=== PATIENT | female | born 1965 | race African-American/Black ===

== ENCOUNTER 2016-11-28 12:40 | Emergency (ER) | payer OTHER ==
[2016-11-28 12:52] VITALS: BP 146/63; PULSE 81; RESP 17; TEMP 98.3
--- NOTE | 2016-11-28 12:55 | ED ---
ENT HPI - General Chief complaint: Dental/Oral Stated complaint: Tooth Pain Time Seen by Provider: 11/28/16 12:52 Source: patient, RN notes reviewed Mode of arrival: ambulatory Limitations: no limitations - History of Present Illness Initial comments: 50-year-old female presents emergency Department chief complaint left-sided dental pain. Patient states she has 2 broken teeth and states that they're trying to figure out what to do for her dentition secondary she's on Plavix may don't want her to stop. Dentist will not remove the teeth at this time as she is on Plavix. Patient denies any fevers or chills with states her last few days she's had increased pain. Patient denies any neck pain, headache or dizziness. Patient states that she tried some [id number] pain medication no relief. - Related Data Home Medications Medication Instructions Recorded Confirmed ALPRAZolam [Xanax] 0.25 mg PO TID PRN 10/21/13 12/07/15 Aspirin 81 mg PO DAILY 10/21/13 12/07/15 Atorvastatin [Lipitor] 80 mg PO DAILY 10/21/13 12/07/15 Clopidogrel [Plavix] 75 mg PO DAILY 10/21/13 12/07/15 Losartan Potassium [Cozaar] 100 mg PO QAM 10/21/13 12/07/15 Metoprolol Tartrate [Lopressor] 50 mg PO BID 10/21/13 12/07/15 amLODIPine [Norvasc] 10 mg PO QAM 08/14/14 12/07/15 Cholecalciferol [Vitamin D3] 2,000 unit PO DAILY 07/31/15 12/07/15 Previous Rx's Medication Instructions Recorded Hydrocodone/Acetaminophen [Lortab 1 tab PO Q6HR PRN #30 tab 03/26/15 7.5-325 mg Tablet] Clindamycin [Cleocin] 300 mg PO Q6H #40 capsule 12/07/15 HYDROcodone/APAP 5-325MG [[place] 5] 1 each PO Q4HR PRN #20 tab 12/07/15 Acetaminophen-Codeine 300-30mg 1 tab PO Q4H PRN #20 tablet 11/28/16 [Tylenol #3] Clindamycin HCl 300 mg PO Q6HR #40 cap 11/28/16 Allergies Allergy/AdvReac Type Severity Reaction Status Date / Time Penicillins Allergy Unknown Verified 12/07/15 01:09 Review of Systems ROS Statement: Those systems with pertinent positive or pertinent negative responses have been documented in the HPI. ROS Other: All systems not noted in ROS Statement are negative. Past Medical History Past Medical History: Cancer, Hyperlipidemia, Hypertension, Myocardial Infarction ([place]) Additional Past Medical History / Comment(s): BRAIN ANEURSYM, LUNG CA Last Myocardial Infarction Date:: 04/30/2013 History of Any Multi-Drug Resistant Organisms: None Reported Past Surgical History: Heart Catheterization, Orthopedic Surgery, Tubal Ligation Additional Past Surgical History / Comment(s): ANGIOPLASTY, CARPEL TUNNEL, and laparoscopy, PARTIAL LUNR REMOVAL TO RIGHT LUNG Past Anesthesia/Blood Transfusion Reactions: No Reported Reaction Past Psychological History: Anxiety, Panic Disorder Smoking Status: Current every day smoker Past Alcohol Use History: Rare Past Drug Use History: None Reported - Past Family History Mother Family Medical History: Cancer Father Family Medical History: Cancer General Exam Limitations: no limitations General appearance: alert, in no apparent distress Head exam: Present: atraumatic, normocephalic, normal inspection Eye exam: Present: normal appearance, PERRL, EOMI. Absent: scleral icterus, conjunctival injection, periorbital swelling ENT exam: Present: mucous membranes moist, TM's normal bilaterally, normal external ear exam. Absent: normal exam, normal oropharynx (Poor dentition, dental fracture #16 and #17. There is no drainable abscess) Neck exam: Present: normal inspection, full ROM. Absent: tenderness, meningismus, lymphadenopathy Respiratory exam: Present: normal lung sounds bilaterally. Absent: respiratory distress, wheezes, rales, rhonchi, stridor Cardiovascular Exam: Present: regular rate, normal rhythm, normal heart sounds. Absent: systolic murmur, diastolic murmur, rubs, gallop, clicks Course Vital Signs 11/28/16 12:49 Temperature 98.3 F Pulse Rate 81 Respiratory 17 Rate Blood Pressure 146/63 O2 Sat by Pulse 99 Oximetry Medical Decision Making - Medical Decision Making 50-year-old female presented for dental pain. Patient has dental fractures noted. Patient placed on antibiotics, pain medication this time she is advised to follow-up again with dentist and figure out a plan for her dentition. Return parameters were discussed. Disposition Clinical Impression: Fracture of tooth, Toothache Disposition: HOME SELF-CARE Condition: Stable Instructions: Toothache (ED) Additional Instructions: Please return to the Emergency Department if symptoms worsen or any other concerns. Prescriptions: Acetaminophen-Codeine 300-30mg [Tylenol #3] 1 tab PO Q4H PRN #20 tablet PRN Reason: pain Clindamycin HCl 300 mg PO Q6HR #40 cap Referrals: None,Stated [Primary Care Provider] - 1-2 days Time of Disposition: 12:55
== END 2016-11-28 13:08 | disposition home or self-care (01) ==
LOC: EC 12:40
DX: S02.5XXA Fracture of tooth (traumatic), initial encounter for closed fracture (principal); F41.9 Anxiety disorder, unspecified; E78.5 Hyperlipidemia, unspecified; I10 Essential (primary) hypertension; I25.2 Old myocardial infarction; F17.200 Nicotine dependence, unspecified, uncomplicated; Z95.5 Presence of coronary angioplasty implant and graft; Z88.0 Allergy status to penicillin; Z79.02 Long term (current) use of antithrombotics/antiplatelets; Z79.82 Long term (current) use of aspirin; Z79.899 Other long term (current) drug therapy; X58.XXXA Exposure to other specified factors, initial encounter
CPT/HCPCS: 99282

== ENCOUNTER 2017-06-05 09:56 | Day surgery (SDC) | payer OTHER ==
[2017-05-31 16:18] VITALS: BMI 31.4
[~2017-06-05 09:56] MED LIST: LACTATED RINGERS 1,000 ML IV SCH
[2017-06-05 10:29] VITALS: TEMP 98.7
[2017-06-05] MEDS ORDERED: LIDOCAINE 1% 20 ML VIAL (10MG/ML) FOR IV START INTRADERMA ONE (10:44)
[2017-06-05] MEDS ORDERED: PROPOFOL 10 MG/ML 20 ML VIAL IV ONE (11:10)
--- NOTE | 2017-06-05 11:38 | P.PCN ---
Date of Procedure: 06/05/17 Procedure(s) Performed: Procedure: Total colonoscopy. Preoperative diagnosis: Positive occult blood in the stools. Postoperative diagnosis: Colonoscopy within normal limits. Preparation: HalfLytely prep. Sedation: Was provided by anesthesia. Brief clinical history: The patient is a 51-year-old female who is referred for this evaluation because of finding of positive blood in her stools. She denies any change in bowel habits or overt bleeding. She had no prior colonoscopy. She does have occasional heartburn if she eats the wrong things and she takes Tums for that as needed. No alarm symptoms. Procedure: With the patient on her left lateral decubitus position and after informed consent and adequate sedation, the perianal area was inspected and it did not show any fissures or fistulas. There were no masses felt on digital rectal examination. The Olympus CFQ 160L video colonoscope was then inserted in the rectum in the usual fashion and advanced to the cecum. There were no edema, erythema, friability, ulceration, exudation or spontaneous bleeding. No polyps or tumors were seen or any obvious diverticular disease. I retroflexed the endoscope in the rectum then the endoscope was withdrawn. The patient tolerated the procedure well. Plan: The patient was reassured. A possible upper GI source should be kept in mind and consideration can be given for an upper endoscopy based on her course. She will follow-up with you as planned and I recommended repeat colonoscopy in 10 years.
[2017-06-05 11:55] VITALS: BP 115/65; PULSE 69; RESP 18
== END 2017-06-05 12:15 | disposition home or self-care (01) ==
LOC: ORWHC2ENDO 09:56
DX: K92.1 Melena (principal); K21.9 Gastro-esophageal reflux disease without esophagitis; I25.119 Atherosclerotic heart disease of native coronary artery with unspecified angina pectoris; I10 Essential (primary) hypertension; E78.5 Hyperlipidemia, unspecified; I25.2 Old myocardial infarction; Z85.118 Personal history of other malignant neoplasm of bronchus and lung; I67.1 Cerebral aneurysm, nonruptured; Z79.02 Long term (current) use of antithrombotics/antiplatelets; Z79.82 Long term (current) use of aspirin; Z79.891 Long term (current) use of opiate analgesic; Z79.899 Other long term (current) drug therapy; Z88.0 Allergy status to penicillin
CPT/HCPCS: 81025; 45378; J2704

== ENCOUNTER 2017-12-18 07:32 | Emergency (ER) | payer OTHER ==
[2017-12-18 07:41] VITALS: BP 122/86; PULSE 70; RESP 20; TEMP 98.3
--- NOTE | 2017-12-18 08:21 | ED ---
General Adult HPI - General Chief complaint: ENT Stated complaint: sore throat/ear pain/ rash Time Seen by Provider: 12/18/17 08:05 Source: patient, RN notes reviewed, old records reviewed Mode of arrival: ambulatory Limitations: no limitations - History of Present Illness Initial comments: 51-year-old female presents for evaluation of bilateral eye drainage, itchy ears , sore throat and laryngitis. Patient's eyes have bothered her for approximately the past week with clear to yellow drainage. She states she's had the symptoms of itchy ears and sore throat as well as laryngitis for the past several months. She has been seen by her primary care physician for these symptoms. She is not currently on any antihistamines. Patient denies fever or chills. She has had a mild cough. She is a current smoker. Remote history of lung cancer. She follows with oncology for this. - Related Data Home Medications Medication Instructions Recorded Confirmed ALPRAZolam [Xanax] 0.25 mg PO TID PRN 10/21/13 06/05/17 Aspirin 81 mg PO DAILY 10/21/13 06/05/17 Atorvastatin [Lipitor] 80 mg PO DAILY 10/21/13 06/05/17 Clopidogrel [Plavix] 75 mg PO DAILY 10/21/13 06/05/17 Losartan Potassium [Cozaar] 100 mg PO QAM 10/21/13 06/05/17 Metoprolol Tartrate [Lopressor] 50 mg PO BID 10/21/13 06/05/17 amLODIPine [Norvasc] 10 mg PO QAM 08/14/14 06/05/17 traMADol HCL [Ultram] 50 mg PO Q6HR PRN 05/31/17 06/05/17 Ergocalciferol [Vitamin D2] 50,000 unit PO Q7D 06/05/17 06/05/17 Previous Rx's Medication Instructions Recorded Loratadine [Claritin] 10 mg PO DAILY #30 tab 12/18/17 Polymyxin B-Trimeth Sulf Ophth 2 drops BOTH EYES Q4H #10 ml 12/18/17 [Polytrim Opthalmic] methylPREDNISolone Dose Pack 4 mg PO DIRECTED #21 package 12/18/17 [Medrol Dose Pack] Allergies Allergy/AdvReac Type Severity Reaction Status Date / Time Penicillins Allergy Unknown Verified 12/18/17 07:40 Childhood Review of Systems ROS Statement: Those systems with pertinent positive or pertinent negative responses have been documented in the HPI. ROS Other: All systems not noted in ROS Statement are negative. Past Medical History Past Medical History: Cancer, GERD/Reflux, Hyperlipidemia, Hypertension, Myocardial Infarction ([place]) Additional Past Medical History / Comment(s): BRAIN ANEURSYM, LUNG CA, CARPAL TUNNEL RIGHT WRIST Last Myocardial Infarction Date:: 04/30/2013 History of Any Multi-Drug Resistant Organisms: None Reported Past Surgical History: Heart Catheterization, Orthopedic Surgery, Tubal Ligation , Uterine Ablation Additional Past Surgical History / Comment(s): ANGIOPLASTY FOR BRAIN ANEURSYM, CARPEL TUNNEL RIGHT WRIST , and laparoscopy, PARTIAL RIGHT LUNG REMOVAL ,PTCA Past Anesthesia/Blood Transfusion Reactions: No Reported Reaction Past Psychological History: Anxiety, Panic Disorder Smoking Status: Current every day smoker Past Alcohol Use History: None Reported Past Drug Use History: None Reported - Past Family History Mother Family Medical History: Cancer Father Family Medical History: Cancer General Exam Limitations: no limitations General appearance: alert, in no apparent distress Head exam: Present: atraumatic, normocephalic Eye exam: Present: PERRL, EOMI, conjunctival injection. Absent: periorbital swelling, periorbital tenderness ENT exam: Present: mucous membranes moist, TM's normal bilaterally. Absent: normal oropharynx (Pharyngeal erythema, no tonsillar swelling or exudate, there is cobblestoning) Neck exam: Present: full ROM, lymphadenopathy (Some bilateral cervical lymphadenopathy) Respiratory exam: Present: normal lung sounds bilaterally. Absent: respiratory distress, wheezes, rales, rhonchi Cardiovascular Exam: Present: regular rate, normal rhythm GI/Abdominal exam: Present: soft. Absent: distended, tenderness Extremities exam: Present: normal inspection, full ROM, normal capillary refill. Absent: pedal edema Neurological exam: Present: alert, oriented X3 Psychiatric exam: Present: normal affect, normal mood Skin exam: Present: warm, dry, intact. Absent: cyanosis, diaphoretic Course Vital Signs 12/18/17 07:39 Temperature 98.3 F Pulse Rate 70 Respiratory 20 Rate Blood Pressure 122/86 O2 Sat by Pulse 99 Oximetry Medical Decision Making - Medical Decision Making 51-year-old female presenting with constellation of symptoms that appears primarily ALLERGIC in nature. Patient is otherwise well-appearing, stable vitals. She does have good PATIENT follow-up. She will be prescribed Claritin daily, Medrol Dosepak, and eyedrops at the chance for her conjunctivitis is bacterial in nature. She will also be given ENT follow-up to use as needed. She will also follow up with her primary care physician. She is also encouraged to quit smoking. Return with worsening or changing symptoms. Disposition Clinical Impression: Allergic pharyngitis, Conjunctivitis Disposition: HOME SELF-CARE Condition: Good Instructions: Allergic Rhinitis (ED), Conjunctivitis (ED) Prescriptions: Loratadine [Claritin] 10 mg PO DAILY #30 tab methylPREDNISolone Dose Pack [Medrol Dose Pack] 4 mg PO DIRECTED #21 package Polymyxin B-Trimeth Sulf Ophth [Polytrim Opthalmic] 2 drops BOTH EYES Q4H #10 ml Is patient prescribed a controlled substance at d/c from ED?: No Referrals: Latisha Ziegler MD [Primary Care Provider] - 1-2 days Kali Perez MD [STAFF PHYSICIAN] - 1-2 days Time of Disposition: 08:18
== END 2017-12-18 08:29 | disposition home or self-care (01) ==
LOC: EC 07:32
DX: J02.9 Acute pharyngitis, unspecified (principal); H10.9 Unspecified conjunctivitis; E78.5 Hyperlipidemia, unspecified; I10 Essential (primary) hypertension; I25.2 Old myocardial infarction; F17.200 Nicotine dependence, unspecified, uncomplicated; Z85.118 Personal history of other malignant neoplasm of bronchus and lung; Z79.01 Long term (current) use of anticoagulants; Z79.82 Long term (current) use of aspirin; Z79.899 Other long term (current) drug therapy; Z88.0 Allergy status to penicillin; Z95.818 Presence of other cardiac implants and grafts
CPT/HCPCS: 99283

== ENCOUNTER → 2018-03-30 | Outpatient (CLI) | payer OTHER ==
--- NOTE | 2018-03-30 13:55 | P.GSHP ---
History of Present Illness H&P Date: 03/30/18 Chief Complaint: abnormal mammogram of the right breast Norma is a 52 year old female with a complaint of a mammogram performed on 920 [id number] which revealed an area of concern in the right breast. The left breast mammogram report is not immediately available to me. The patient was recommended to undergo a stereotactic core biopsy however secondary to the posterior position it was felt that a conventional stereo biopsy would not be possible. An attempt was made on [place] [id number]. However secondary to the location of the lesion it was felt that it could not be performed stereotactically and it was recommended to attempt a wire localization and excision in the operating room. The patient does not feel anything in her breast. She does not complain of any pain in her breast. This was a routine mammogram. She has no nipple discharge or skin changes. The patient has a history of lung cancer in 2016. This was treated with surgery. She did not have chemo or radiation. The patient additionally has been hoarse for several months and was told today that she has throat cancer and is getting ready to start radiation treatment for this. Family history: 1. mother: colon cancer at 66 2. father: lung cancer at 58 3. maternal siblings, 04/26 of cancer; brain, colon, breast 4. paternal aunt: ovarian 5. paternal grandfather: ? type of cancer Hormonal History: menarche: 14 : 2, children, 1 child, born at 18, breast fed: no menopause: uterine ablation 2015 BCP: none hormones: none Past Surgical History: 1. lung cancer 2. brain surgery aneurysm 3. Right wrist carpal tunnel 4. tubal pregnacy/tubaligation Past Medical History: 1. [place] 2. HTN Social history: Smoke:1/2 PPD for 10 years not now alcohol: none drugs: none - Constitutional Comment: throat cancer, Constitutional: Denies chills, Denies fever - EENT Comment: hoarse, throat cancer Eyes: denies blurred vision, denies pain Ears: deny: decreased hearing, tinnitus - Breasts Breasts: bilateral: as per HPI - Cardiovascular Comment: [place] - Respiratory Comment: lung cancer - Gastrointestinal Comment: colonoscopy were ok Gastrointestinal: Denies abdominal pain, Denies diarrhea, Denies nausea, Denies vomiting - Genitourinary (Female) Genitourinary: Denies dysuria, Denies hematuria - Menstruation Menstruation: Reports postmenopausal - Musculoskeletal Comment: arthritis ? in neck - Integumentary Integumentary: Reports rash - Neurological Comment: numb on the right side Neurological: Reports numbness - Psychiatric Psychiatric: Reports anxiety, Reports depression - Endocrine Endocrine: Denies fatigue, Denies weight change - Hematologic/Lymphatic Comment: plavix and aspirin - Allergic/Immunologic Allergic/Immunologic: Reports seasonal allergies Past Medical History Past Medical History: Cancer, GERD/Reflux, Hyperlipidemia, Hypertension, Myocardial Infarction ([place]) Additional Past Medical History / Comment(s): BRAIN ANEURSYM, LUNG CA, CARPAL TUNNEL RIGHT WRIST Last Myocardial Infarction Date:: 04/30/2013 History of Any Multi-Drug Resistant Organisms: None Reported Past Surgical History: Heart Catheterization, Orthopedic Surgery, Tubal Ligation , Uterine Ablation Additional Past Surgical History / Comment(s): ANGIOPLASTY FOR BRAIN ANEURSYM, CARPEL TUNNEL RIGHT WRIST , and laparoscopy, PARTIAL RIGHT LUNG REMOVAL ,PTCA Past Anesthesia/Blood Transfusion Reactions: No Reported Reaction Past Psychological History: Anxiety, Panic Disorder Smoking Status: Current every day smoker Past Alcohol Use History: None Reported Past Drug Use History: None Reported - Past Family History Mother Family Medical History: Cancer Father Family Medical History: Cancer Medications and Allergies Home Medications Medication Instructions Recorded Confirmed Type ALPRAZolam [Xanax] 0.25 mg PO TID PRN 10/21/13 06/05/17 History Aspirin 81 mg PO DAILY 10/21/13 06/05/17 History Atorvastatin [Lipitor] 80 mg PO DAILY 10/21/13 06/05/17 History Clopidogrel [Plavix] 75 mg PO DAILY 10/21/13 06/05/17 History Losartan Potassium [Cozaar] 100 mg PO QAM 10/21/13 06/05/17 History Metoprolol Tartrate [Lopressor] 50 mg PO BID 10/21/13 06/05/17 History amLODIPine [Norvasc] 10 mg PO QAM 08/14/14 06/05/17 History traMADol HCL [Ultram] 50 mg PO Q6HR PRN 05/31/17 06/05/17 History Ergocalciferol [Vitamin D2] 50,000 unit PO Q7D 06/05/17 06/05/17 History Loratadine [Claritin] 10 mg PO DAILY #30 tab 12/18/17 Rx Polymyxin B-Trimeth Sulf Ophth 2 drops BOTH EYES Q4H #10 ml 12/18/17 Rx [Polytrim Opthalmic] methylPREDNISolone Dose Pack 4 mg PO DIRECTED #21 package 12/18/17 Rx [Medrol Dose Pack] Allergies Allergy/AdvReac Type Severity Reaction Status Date / Time Penicillins Allergy Unknown Verified 12/18/17 07:40 Childhood Surgical - Exam - General obese - Eyes normal ocular movement - ENT hoarse no hearing loss, no congestion - Neck trachea midline - Respiratory normal respiratory effort, clear to auscultation - Cardiovascular Rhythm: regular Heart Sounds: normal: S1, S2 - Abdomen Abdomen: soft, non tender, no guarding, no rigid, no rebound - Integumentary normal turger - Musculoskeletal normal gait, normal posture - Psychiatric oriented to time, oriented to person, oriented to place, speech is normal, memory intact breast exam: Right breast: Slightly smaller than the left breast, multiple positional exam fibrocystic changes, no dominant masses or nodules of concern, there are incisions near for prior trocar sites in the lateral aspect of the chest wall near the breast is a well-healed Right axilla: No adenopathy of concern Left breast: Multi-positional exam of dominant mass or nodules of concern Left axilla: No adenopathy of concern Results Mammogram reviewed with radiologist Assessment and Plan Assessment: Impression: 1. Mammographic abnormality right breast 2. Proper cystic breast changes 3. History of lung cancer 4. History of myocardial infarction 5. Throat cancer for which she is to start radiation therapy 6. History of brain aneurysm 7. Hypertension Plan: 1. After review of mammograms with Dr. Osuna the patient is going to undergo additional radiographs to determine if this can be localized stereotactically 2. Follow-up with radiation therapy for the throat cancer 3. Medical management of medical problems CC: Dr. Glenis Delacruz
[2018-03-30 14:23] VITALS: BP 131/80; PULSE 92; RESP 20; TEMP 98.4; BMI 34.3
--- NOTE | 2018-03-30 14:26 | MM ---
Reason for exam: additional evaluation requested from prior study. Last mammogram was performed 2 months ago. Physical Findings: A clinical breast exam by your physician is recommended on an annual basis and results should be correlated with mammographic findings. [facility] RT w CAD CC, MLO, LM, and XCCL view(s) were taken of the right breast. Technologist: Verna Thao, RT (R)(M) Prior study comparison: February 06, 2018, mammogram, performed at [facility]. There are scattered fibroglandular densities. Finding: There is persistent indeterminate heterogeneous calcifications in the upper quadrant, posterior position of the right breast. Previous mammotome biopsy in the right breast x 2. These results were verbally communicated with the patient on 03/30/18. ASSESSMENT: Suspicious, BI-RAD 4 RECOMMENDATION: Surgical consultation of the right breast. (No change from outside 02/06/18 where suspicious needle localization recommended. May be difficult to needle loc consider short term mammogram follow up ) JAIRD
== END | disposition home or self-care (01) ==
LOC: WWCWWP 13:08
PROVIDERS: ATTEND Surgery
DX: R92.8 Other abnormal and inconclusive findings on diagnostic imaging of breast (principal)
CPT/HCPCS: 77065

== ENCOUNTER 2018-07-18 08:22 | Emergency (ER) | payer OTHER ==
[2018-07-18 08:34] VITALS: RESP 18; TEMP 98.6
[2018-07-18] MEDS ORDERED: SODIUM CHLORIDE 0.9% 1,000 ML IV STA (08:48)
--- NOTE | 2018-07-18 08:51 | ED ---
General Adult HPI - General Chief complaint: Dizziness Stated complaint: Dizzy/lightheaded Time Seen by Provider: 07/18/18 08:38 Source: patient, RN notes reviewed, old records reviewed Mode of arrival: wheelchair Limitations: no limitations - History of Present Illness Initial comments: 52-year-old female presents for evaluation of lightheadedness and dizziness. Patient states her symptoms have been present for approximately one week. She has had recent diagnosis of laryngeal cancer status post resection and radiation. She is not currently on chemotherapy. She states that after her radiation she has had some dysphagia and has not been eating or drinking well. Denies vomiting or diarrhea. Denies chest pain or dyspnea. States symptoms are worse with standing. Her family member does report that she has not been eating or drinking well at all. Secondary issue of increased stress with her boyfriend recently been diagnosed with terminal cancer. - Related Data Home Medications Medication Instructions Recorded Confirmed ALPRAZolam [Xanax] 0.25 mg PO TID PRN 10/21/13 07/18/18 Aspirin 81 mg PO DAILY 10/21/13 07/18/18 Atorvastatin [Lipitor] 80 mg PO DAILY 10/21/13 07/18/18 Clopidogrel [Plavix] 75 mg PO DAILY 10/21/13 07/18/18 Losartan Potassium [Cozaar] 100 mg PO QAM 10/21/13 07/18/18 Metoprolol Tartrate [Lopressor] 50 mg PO BID 10/21/13 07/18/18 amLODIPine [Norvasc] 10 mg PO QAM 08/14/14 07/18/18 Previous Rx's Medication Instructions Recorded Nitrofurantoin Monohyd/M-Cryst 100 mg PO Q12HR #20 cap 07/18/18 [Macrobid] Allergies Allergy/AdvReac Type Severity Reaction Status Date / Time Penicillins Allergy Unknown Verified 07/18/18 08:59 Childhood Review of Systems ROS Statement: Those systems with pertinent positive or pertinent negative responses have been documented in the HPI. ROS Other: All systems not noted in ROS Statement are negative. Past Medical History Past Medical History: Cancer, GERD/Reflux, Hyperlipidemia, Hypertension, Myocardial Infarction (SD) Additional Past Medical History / Comment(s): BRAIN ANEURSYM, LUNG CA, CARPAL TUNNEL RIGHT WRIST, throat CA dx apr 2018 Last Myocardial Infarction Date:: 04/30/2013 History of Any Multi-Drug Resistant Organisms: None Reported Past Surgical History: Heart Catheterization, Orthopedic Surgery, Tubal Ligation , Uterine Ablation Additional Past Surgical History / Comment(s): ANGIOPLASTY FOR BRAIN ANEURSYM, CARPEL TUNNEL RIGHT WRIST , and laparoscopy, PARTIAL RIGHT LUNG REMOVAL ,PTCA, Past Anesthesia/Blood Transfusion Reactions: No Reported Reaction Past Psychological History: Anxiety, Panic Disorder Smoking Status: Current some day smoker Past Alcohol Use History: None Reported Past Drug Use History: None Reported - Past Family History Mother Family Medical History: Cancer Father Family Medical History: Cancer General Exam Limitations: no limitations General appearance: alert, in no apparent distress Head exam: Present: atraumatic, normocephalic Eye exam: Present: normal appearance, PERRL ENT exam: Present: mucous membranes dry Neck exam: Absent: tenderness, meningismus Respiratory exam: Present: normal lung sounds bilaterally. Absent: respiratory distress, wheezes, rales Cardiovascular Exam: Present: regular rate, normal rhythm GI/Abdominal exam: Present: soft Extremities exam: Present: normal inspection, normal capillary refill. Absent: pedal edema, calf tenderness Neurological exam: Present: alert, oriented X3, CN II-XII intact. Absent: motor sensory deficit Psychiatric exam: Present: normal affect, normal mood Skin exam: Present: warm, dry, intact. Absent: cyanosis, diaphoretic Course Vital Signs 07/18/18 08:30 Temperature 98.6 F Pulse Rate 83 Respiratory 18 Rate Blood Pressure 92/62 O2 Sat by Pulse 98 Oximetry EKG Findings - EKG Comments: EKG Findings:: EKG: Normal sinus rhythm, rate of 76, FL interval 148, QRS duration 78, QTC 420, no ST segment elevation, T-wave inversion in lead 3 Medical Decision Making - Medical Decision Making 52-year-old female presenting with lightheadedness, clinically appears dehydrated, and has had decreased oral intake secondary to radiation for treatment of laryngeal carcinoma. Patient has no chest pain or dyspnea, no headache or neurological complaints, no exam is nonfocal, no ataxia. Patient does appear dehydrated on exam. She has mild leukocytosis 12.1, hemoglobin stable 14.5, creatinine 1.06 from baseline of 0.8. Otherwise CMP is unremarkable. Urinalysis shows 44 white cells, this is a contaminated specimen but there is many bacteria. Urine culture will be obtained patient started on Macrobid. After IV hydration patient is feeling better, vital signs improved. She will be discharged this time, encouraged to maintain oral hydration, present with worsening or changing symptoms. - Lab Data Result diagrams: 07/18/18 09:07 07/18/18 09:07 Lab Results 07/18/18 07/18/18 07/18/18 Range/Units 09:07 09:07 09:07 WBC 12.1 H (3.8-10.6) k/uL RBC 5.01 (3.80-5.40) m/uL Hgb 14.5 (11.4-16.0) gm/dL Hct 44.5 (34.0-46.0) % MCV 88.7 (80.0-100.0) fL MCH 29.0 (25.0-35.0) pg MCHC 32.7 (31.0-37.0) g/dL RDW 14.4 (11.5-15.5) % Plt Count 298 (150-450) k/uL Neutrophils % 82 % Lymphocytes % 8 % Monocytes % 6 % Eosinophils % 3 % Basophils % 0 % Neutrophils # 9.9 H (1.3-7.7) k/uL Lymphocytes # 0.9 L (1.0-4.8) k/uL Monocytes # 0.7 (0-1.0) k/uL Eosinophils # 0.3 (0-0.7) k/uL Basophils # 0.0 (0-0.2) k/uL PT 10.5 (9.0-12.0) sec INR 1.0 (<1.2) APTT 22.5 (22.0-30.0) sec Sodium 140 (137-145) mmol/L Potassium 4.3 (3.5-5.1) mmol/L Chloride 110 H (98-107) mmol/L Carbon Dioxide 22 (22-30) mmol/L Anion Gap 8 mmol/L BUN 11 (7-17) mg/dL Creatinine 1.06 H (0.52-1.04) mg/dL Est GFR (CKD-EPI)AfAm 71 (>60 ml/min/1.73 sqM) Est GFR (CKD-EPI)NonAf 62 (>60 ml/min/1.73 sqM) Glucose 97 (74-99) mg/dL Calcium 9.8 (8.4-10.2) mg/dL Magnesium 1.8 (1.6-2.3) mg/dL Total Bilirubin 0.6 (0.2-1.3) mg/dL AST 30 (14-36) U/L ALT 33 (9-52) U/L Alkaline Phosphatase 85 (38-126) U/L Troponin I (0.000-0.034) ng/mL Total Protein 6.7 (6.3-8.2) g/dL Albumin 3.7 (3.5-5.0) g/dL Urine Color Urine Appearance (Clear) Urine pH (5.0-8.0) Ur Specific [place] (1.001-1.035) Urine Protein (Negative) Urine Glucose (UA) (Negative) Urine Ketones (Negative) Urine Blood (Negative) Urine Nitrite (Negative) Urine Bilirubin (Negative) Urine Urobilinogen (<2.0) mg/dL Ur Leukocyte Esterase (Negative) Urine RBC (0-5) /hpf Urine WBC (0-5) /hpf Ur Squamous Epith Cells (0-4) /hpf Urine Bacteria (None) /hpf Hyaline Casts (0-2) /lpf Urine Mucus (None) /hpf 07/18/18 07/18/18 Range/Units 09:07 09:07 WBC (3.8-10.6) k/uL RBC (3.80-5.40) m/uL Hgb (11.4-16.0) gm/dL Hct (34.0-46.0) % MCV (80.0-100.0) fL MCH (25.0-35.0) pg MCHC (31.0-37.0) g/dL RDW (11.5-15.5) % Plt Count (150-450) k/uL Neutrophils % % Lymphocytes % % Monocytes % % Eosinophils % % Basophils % % Neutrophils # (1.3-7.7) k/uL Lymphocytes # (1.0-4.8) k/uL Monocytes # (0-1.0) k/uL Eosinophils # (0-0.7) k/uL Basophils # (0-0.2) k/uL PT (9.0-12.0) sec INR (<1.2) APTT (22.0-30.0) sec Sodium (137-145) mmol/L Potassium (3.5-5.1) mmol/L Chloride (98-107) mmol/L Carbon Dioxide (22-30) mmol/L Anion Gap mmol/L BUN (7-17) mg/dL Creatinine (0.52-1.04) mg/dL Est GFR (CKD-EPI)AfAm (>60 ml/min/1.73 sqM) Est GFR (CKD-EPI)NonAf (>60 ml/min/1.73 sqM) Glucose (74-99) mg/dL Calcium (8.4-10.2) mg/dL Magnesium (1.6-2.3) mg/dL Total Bilirubin (0.2-1.3) mg/dL AST (14-36) U/L ALT (9-52) U/L Alkaline Phosphatase (38-126) U/L Troponin I <0.012 (0.000-0.034) ng/mL Total Protein (6.3-8.2) g/dL Albumin (3.5-5.0) g/dL Urine Color Yellow Urine Appearance Turbid H (Clear) Urine pH 6.0 (5.0-8.0) Ur Specific [place] 1.019 (1.001-1.035) Urine Protein 2+ H (Negative) Urine Glucose (UA) Negative (Negative) Urine Ketones Trace H (Negative) Urine Blood Moderate H (Negative) Urine Nitrite Negative (Negative) Urine Bilirubin Negative (Negative) Urine Urobilinogen 2.0 (<2.0) mg/dL Ur Leukocyte Esterase Moderate H (Negative) Urine RBC 3 (0-5) /hpf Urine WBC 44 H (0-5) /hpf Ur Squamous Epith Cells 23 H (0-4) /hpf Urine Bacteria Many H (None) /hpf Hyaline Casts 23 H (0-2) /lpf Urine Mucus Few H (None) /hpf Disposition Clinical Impression: Dehydration, UTI (urinary tract infection) Disposition: HOME SELF-CARE Condition: Good Instructions (If sedation given, give patient instructions): Dizziness (ED), Dehydration (ED), Urinary Tract Infection in Women (DC) Prescriptions: Nitrofurantoin Monohyd/M-Cryst [Macrobid] 100 mg PO Q12HR #20 cap Is patient prescribed a controlled substance at d/c from ED?: No Referrals: Latisha Ziegler MD [Primary Care Provider] - 1-2 days Time of Disposition: 11:27
[2018-07-18 09:37] LABS: Basophils % (A) 0 %; Eosinophils # (A) 0.3 k/uL (0-0.7); Eosinophils % (A) 3 %; HCT 44.5 % (34.0-46.0); HGB 14.5 gm/dL (11.4-16.0); Lymphocytes # (A) 0.9 k/uL (1.0-4.8); Lymphocytes % (A) 8 %; MCHC 32.7 g/dL (31.0-37.0); MCV 88.7 fL (80.0-100.0); Mean Platelet Volume 8.1; Monocytes # (A) 0.7 k/uL (0-1.0); Monocytes % (A) 6 %; Neutrophils # (A) 9.9 k/uL (1.3-7.7); Neutrophils % (A) 82 %; Platelet Count 298 k/uL (150-450); RBC 5.01 m/uL (3.80-5.40); RDW 14.4 % (11.5-15.5); WBC 12.1 k/uL (3.8-10.6)
[2018-07-18 09:40] LABS: Partial Thromboplastin Time 22.5 sec (22.0-30.0); Prothrombin Time 10.5 sec (9.0-12.0)
[2018-07-18 09:42] LABS: Albumin 3.7 g/dL (3.5-5.0); Calcium 9.8 mg/dL (8.4-10.2); Magnesium 1.8 mg/dL (1.6-2.3); Potassium 4.3 mmol/L (3.5-5.1); Total Bilirubin 0.6 mg/dL (0.2-1.3); Total Protein 6.7 g/dL (6.3-8.2)
[2018-07-18 09:43] LABS: Appearance,Urine Turbid (Clear); Bacteria,Urine Many /hpf; Bilirubin,Urine Negative (Negative); Blood,Urine Moderate (Negative); Color,Urine Yellow; Glucose,Urine (UA) Negative (Negative); Hyaline Casts,Urine 23 /lpf (0-2); Ketones,Urine Trace (Negative); Leukocyte Esterase,Urine Moderate (Negative); Mucus,Urine Few /hpf; Nitrite,Urine Negative (Negative); Protein,Urine 2+ (Negative); RBC,Urine 3 /hpf (0-5); Specific Gravity,Urine 1.019 (1.001-1.035); Squamous Epithelial Cell,Urine 23 /hpf (0-4); WBC,Urine 44 /hpf (0-5)
--- NOTE | 2018-07-18 09:48 | XR ---
EXAMINATION TYPE: XR chest 2V DATE OF EXAM: 07/18/2018 COMPARISON: Chest x-ray and chest CT August 05, 2015 HISTORY: Chest pain per order. History of throat and lung cancer per patient. TECHNIQUE: Frontal and lateral views of the chest are obtained. FINDINGS: There is right basilar linear scarring and/or atelectasis on current study. There is improv ed aeration in both lung bases noted since 2016 prior. No pleural effusion or pneumothorax is evident .. The cardiac silhouette size is stable and upper limits of normal. The osseous structures are in tact. IMPRESSION: Right basilar linear atelectasis and/or scarring. No suspicious focal infiltrate
[2018-07-18] MEDS ORDERED: SODIUM CHLORIDE 0.9% 500 ML 500 ML IV ONE (10:51)
[2018-07-18 12:08] VITALS: BP 123/80; PULSE 70
== END 2018-07-18 12:15 | disposition home or self-care (01) ==
LOC: EC 08:22
DX: E86.0 Dehydration (principal); N39.0 Urinary tract infection, site not specified; D72.829 Elevated white blood cell count, unspecified; R13.10 Dysphagia, unspecified; E78.5 Hyperlipidemia, unspecified; I10 Essential (primary) hypertension; I25.2 Old myocardial infarction; F17.200 Nicotine dependence, unspecified, uncomplicated; Z88.0 Allergy status to penicillin; Z79.02 Long term (current) use of antithrombotics/antiplatelets; Z79.82 Long term (current) use of aspirin; Z79.899 Other long term (current) drug therapy; Z85.21 Personal history of malignant neoplasm of larynx; Z85.118 Personal history of other malignant neoplasm of bronchus and lung; Z95.818 Presence of other cardiac implants and grafts; Z92.3 Personal history of irradiation; Z90.2 Acquired absence of lung [part of]; Z86.69 Personal history of other diseases of the nervous system and sense organs; Z90.89 Acquired absence of other organs; Z98.61 Coronary angioplasty status; Z63.79 Other stressful life events affecting family and household
CPT/HCPCS: 36415; 71046; 80053; 81001; 83735; 84484; 85025; 85610; 85730; 93005; 96360; 96361; 99284

== ENCOUNTER 2018-07-21 08:33 | Emergency (ER) | payer OTHER ==
[2018-07-21] MEDS ORDERED: SODIUM CHLORIDE 0.9% 1,000 ML IV STA ×2 (08:40)
--- NOTE | 2018-07-21 08:43 | ED ---
Weakness HPI - General Chief complaint: Weakness Stated complaint: Weakness Time Seen by Provider: 07/21/18 08:33 Source: patient, EMS, RN notes reviewed, old records reviewed Mode of arrival: EMS Limitations: no limitations - History of Present Illness Initial comments: This is a 52-year-old female was brought in by EMS because of lethargy for past 3 weeks she's had been able to eat since the fifth of this month she is nauseated on anything that she tries to eat she states. She has a fevers chills or sweats she has nauseated she states recently she just finished radiation therapy for vocal cord cancer. Is of a history of being under a lot of stress and anxiety recently. She was in the emergency department several days ago for similar complaints. She has some lightheadedness some dizziness with ambulating. No other complaints at this time no cough no dysuria. No palpitations or chest pain MD Complaint: generalized weakness - Related Data Home Medications Medication Instructions Recorded Confirmed Aspirin 81 mg PO DAILY 10/21/13 07/21/18 Atorvastatin [Lipitor] 80 mg PO DAILY 10/21/13 07/21/18 Clopidogrel [Plavix] 75 mg PO DAILY 10/21/13 07/21/18 Losartan Potassium [Cozaar] 100 mg PO DAILY 10/21/13 07/21/18 Metoprolol Tartrate [Lopressor] 50 mg PO BID 10/21/13 07/21/18 amLODIPine [Norvasc] 10 mg PO DAILY 08/14/14 07/21/18 Morphine Sulfate ER [Ms Contin] 15 mg PO Q12HR 07/21/18 07/21/18 oxyCODONE-APAP 10-325MG [Percocet 1 tab PO QID PRN 07/21/18 07/21/18 10-325 mg] Previous Rx's Medication Instructions Recorded Nitrofurantoin Monohyd/M-Cryst 100 mg PO Q12HR #20 cap 07/18/18 [Macrobid] Ondansetron Odt [Zofran Odt] 4 mg PO Q8HR PRN #10 tab 07/21/18 Allergies Allergy/AdvReac Type Severity Reaction Status Date / Time Penicillins Allergy Unknown Verified 07/21/18 09:04 Childhood Review of Systems ROS Statement: Those systems with pertinent positive or pertinent negative responses have been documented in the HPI. ROS Other: All systems not noted in ROS Statement are negative. Past Medical History Past Medical History: Cancer, GERD/Reflux, Hyperlipidemia, Hypertension, Myocardial Infarction (ND) Additional Past Medical History / Comment(s): BRAIN ANEURSYM, LUNG CA, CARPAL TUNNEL RIGHT WRIST, throat CA dx apr 2018 Last Myocardial Infarction Date:: 04/30/2013 History of Any Multi-Drug Resistant Organisms: None Reported Past Surgical History: Heart Catheterization, Orthopedic Surgery, Tubal Ligation, Uterine Ablation Additional Past Surgical History / Comment(s): ANGIOPLASTY FOR BRAIN ANEURSYM, CARPEL TUNNEL RIGHT WRIST , and laparoscopy, PARTIAL RIGHT LUNG REMOVAL ,PTCA, Past Anesthesia/Blood Transfusion Reactions: No Reported Reaction Past Psychological History: Anxiety, Panic Disorder Smoking Status: Current some day smoker Past Alcohol Use History: None Reported Past Drug Use History: None Reported - Past Family History Mother Family Medical History: Cancer Father Family Medical History: Cancer General Exam - General Exam Comments Initial Comments: This is a well-developed well-nourished awake alert oriented 3 female Limitations: no limitations General appearance: alert, in no apparent distress Head exam: Present: atraumatic, normocephalic, normal inspection Eye exam: Present: normal appearance, PERRL, EOMI. Absent: scleral icterus, conjunctival injection, periorbital swelling ENT exam: Present: mucous membranes dry Neck exam: Present: normal inspection, full ROM, other (No stridor JVD or bruits). Absent: tenderness, meningismus, lymphadenopathy Respiratory exam: Present: normal lung sounds bilaterally. Absent: respiratory distress, wheezes, rales, rhonchi, stridor Cardiovascular Exam: Present: regular rate, normal rhythm, normal heart sounds. Absent: systolic murmur, diastolic murmur, rubs, gallop, clicks GI/Abdominal exam: Present: soft, normal bowel sounds. Absent: distended, tenderness, guarding, rebound, rigid Extremities exam: Present: normal inspection, full ROM, normal capillary refill. Absent: tenderness, pedal edema, joint swelling, calf tenderness Back exam: Present: normal inspection Neurological exam: Present: alert, oriented X3, CN II-XII intact Psychiatric exam: Present: normal affect, normal mood Skin exam: Present: warm, dry, intact, normal color. Absent: rash Course Vital Signs 07/21/18 07/21/18 07/21/18 08:37 09:00 09:30 Temperature 98 F Pulse Rate 91 80 Respiratory 18 19 18 Rate Blood Pressure 107/80 107/80 108/77 O2 Sat by Pulse 97 97 100 Oximetry 07/21/18 07/21/18 10:00 12:11 Temperature Pulse Rate 79 89 Respiratory 18 18 Rate Blood Pressure 121/77 113/80 O2 Sat by Pulse 100 97 Oximetry EKG Findings - EKG Results: EKG: interpreted by GENEVA, sinus rhythm (Sinus rhythm of 84. Interval 146 years duration 80 QT since QTC 08/16/1959/ nonspecific T-wave configuration) Medical Decision Making - Medical Decision Making I did reevaluate patient on multiple occasions she improved after IV hydration IV magnesium she is able to eat without difficulty no nausea vomiting she does require further stating emergency department and does want to go home she'll be discharged initial consideration was for admission for intractable vomiting but this has resolved. - Lab Data Result diagrams: 07/21/18 08:43 07/21/18 08:43 Lab Results 07/21/18 07/21/18 07/21/18 Range/Units 08:43 08:43 08:43 WBC 11.1 H (3.8-10.6) k/uL RBC 4.95 (3.80-5.40) m/uL Hgb 14.1 (11.4-16.0) gm/dL Hct 43.5 (34.0-46.0) % MCV 88.0 (80.0-100.0) fL MCH 28.6 (25.0-35.0) pg MCHC 32.4 (31.0-37.0) g/dL RDW 14.3 (11.5-15.5) % Plt Count 326 (150-450) k/uL Neutrophils % 82 % Lymphocytes % 7 % Monocytes % 6 % Eosinophils % 4 % Basophils % 1 % Neutrophils # 9.1 H (1.3-7.7) k/uL Lymphocytes # 0.7 L (1.0-4.8) k/uL Monocytes # 0.6 (0-1.0) k/uL Eosinophils # 0.4 (0-0.7) k/uL Basophils # 0.1 (0-0.2) k/uL Sodium 138 (137-145) mmol/L Potassium 3.9 (3.5-5.1) mmol/L Chloride 110 H (98-107) mmol/L Carbon Dioxide 21 L (22-30) mmol/L Anion Gap 7 mmol/L BUN 8 (7-17) mg/dL Creatinine 0.85 (0.52-1.04) mg/dL Est GFR (CKD-EPI)AfAm >90 (>60 ml/min/1.73 sqM) Est GFR (CKD-EPI)NonAf 80 (>60 ml/min/1.73 sqM) Glucose 110 H (74-99) mg/dL Calcium 9.5 (8.4-10.2) mg/dL Magnesium 1.6 (1.6-2.3) mg/dL Total Bilirubin 0.5 (0.2-1.3) mg/dL AST 32 (14-36) U/L ALT 31 (9-52) U/L Alkaline Phosphatase 75 (38-126) U/L Total Creatine Kinase 43 (30-135) U/L CK-MB (CK-2) <0.2 (0.0-2.4) ng/mL CK-MB (CK-2) Rel Index Troponin I <0.012 (0.000-0.034) ng/mL Total Protein 6.2 L (6.3-8.2) g/dL Albumin 3.3 L (3.5-5.0) g/dL Urine Color Urine Appearance (Clear) Urine pH (5.0-8.0) Ur Specific [place] (1.001-1.035) Urine Protein (Negative) Urine Glucose (UA) (Negative) Urine Ketones (Negative) Urine Blood (Negative) Urine Nitrite (Negative) Urine Bilirubin (Negative) Urine Urobilinogen (<2.0) mg/dL Ur Leukocyte Esterase (Negative) Urine RBC (0-5) /hpf Urine WBC (0-5) /hpf Ur Squamous Epith Cells (0-4) /hpf Urine Bacteria (None) /hpf Urine Mucus (None) /hpf 07/21/18 Range/Units 11:01 WBC (3.8-10.6) k/uL RBC (3.80-5.40) m/uL Hgb (11.4-16.0) gm/dL Hct (34.0-46.0) % MCV (80.0-100.0) fL MCH (25.0-35.0) pg MCHC (31.0-37.0) g/dL RDW (11.5-15.5) % Plt Count (150-450) k/uL Neutrophils % % Lymphocytes % % Monocytes % % Eosinophils % % Basophils % % Neutrophils # (1.3-7.7) k/uL Lymphocytes # (1.0-4.8) k/uL Monocytes # (0-1.0) k/uL Eosinophils # (0-0.7) k/uL Basophils # (0-0.2) k/uL Sodium (137-145) mmol/L Potassium (3.5-5.1) mmol/L Chloride (98-107) mmol/L Carbon Dioxide (22-30) mmol/L Anion Gap mmol/L BUN (7-17) mg/dL Creatinine (0.52-1.04) mg/dL Est GFR (CKD-EPI)AfAm (>60 ml/min/1.73 sqM) Est GFR (CKD-EPI)NonAf (>60 ml/min/1.73 sqM) Glucose (74-99) mg/dL Calcium (8.4-10.2) mg/dL Magnesium (1.6-2.3) mg/dL Total Bilirubin (0.2-1.3) mg/dL AST (14-36) U/L ALT (9-52) U/L Alkaline Phosphatase (38-126) U/L Total Creatine Kinase (30-135) U/L CK-MB (CK-2) (0.0-2.4) ng/mL CK-MB (CK-2) Rel Index Troponin I (0.000-0.034) ng/mL Total Protein (6.3-8.2) g/dL Albumin (3.5-5.0) g/dL Urine Color Yellow Urine Appearance Clear (Clear) Urine pH 6.5 (5.0-8.0) Ur Specific [place] 1.005 (1.001-1.035) Urine Protein Negative (Negative) Urine Glucose (UA) Negative (Negative) Urine Ketones Negative (Negative) Urine Blood Trace H (Negative) Urine Nitrite Negative (Negative) Urine Bilirubin Negative (Negative) Urine Urobilinogen <2.0 (<2.0) mg/dL Ur Leukocyte Esterase Small H (Negative) Urine RBC 1 (0-5) /hpf Urine WBC 5 (0-5) /hpf Ur Squamous Epith Cells 3 (0-4) /hpf Urine Bacteria Many H (None) /hpf Urine Mucus Rare H (None) /hpf - Radiology Data Radiology results: report reviewed (Imaging reviewed no acute findings), image reviewed Disposition Clinical Impression: Dehydration, Vomiting, History of laryngeal cancer Disposition: HOME SELF-CARE Condition: Good Instructions (If sedation given, give patient instructions): Side Effects of Radiation Therapy (ED), Acute Nausea and Vomiting (ED), Dehydration (ED) Prescriptions: Ondansetron Odt [Zofran Odt] 4 mg PO Q8HR PRN #10 tab PRN Reason: Nausea Is patient prescribed a controlled substance at d/c from ED?: No Referrals: Latisha Ziegler MD [Primary Care Provider] - 1-2 days
[2018-07-21 08:47] VITALS: RESP 18
[2018-07-21 09:04] LABS: Basophils # (A) 0.1 k/uL (0-0.2); Basophils % (A) 1 %; Eosinophils # (A) 0.4 k/uL (0-0.7); Eosinophils % (A) 4 %; HCT 43.5 % (34.0-46.0); HGB 14.1 gm/dL (11.4-16.0); Lymphocytes # (A) 0.7 k/uL (1.0-4.8); Lymphocytes % (A) 7 %; MCH 28.6 pg (25.0-35.0); MCHC 32.4 g/dL (31.0-37.0); Mean Platelet Volume 7.6; Monocytes # (A) 0.6 k/uL (0-1.0); Monocytes % (A) 6 %; Neutrophils # (A) 9.1 k/uL (1.3-7.7); Neutrophils % (A) 82 %; Platelet Count 326 k/uL (150-450); RBC 4.95 m/uL (3.80-5.40); RDW 14.3 % (11.5-15.5); WBC 11.1 k/uL (3.8-10.6)
[2018-07-21 09:13] LABS: Albumin 3.3 g/dL (3.5-5.0); Anion Gap 7 mmol/L; Blood Urea Nitrogen 8 mg/dL (7-17); Calcium 9.5 mg/dL (8.4-10.2); Carbon Dioxide 21 mmol/L (22-30); Chloride 110 mmol/L (98-107); Glucose 110 mg/dL (74-99); Sodium 138 mmol/L (137-145); Total Bilirubin 0.5 mg/dL (0.2-1.3); Total Protein 6.2 g/dL (6.3-8.2)
[2018-07-21 09:26] LABS: Creatine Kinase 43 U/L (30-135)
[2018-07-21 09:36] LABS: AST 32 U/L (14-36); Magnesium 1.6 mg/dL (1.6-2.3); Potassium 3.9 mmol/L (3.5-5.1)
[2018-07-21 09:37] LABS: ALT 31 U/L (9-52); Alkaline Phosphatase 75 U/L (38-126)
[2018-07-21 09:39] LABS: Creatine Kinase MB <0.2 ng/mL (0.0-2.4); Troponin I <0.012 ng/mL (0.000-0.034)
--- NOTE | 2018-07-21 09:46 | XR ---
EXAMINATION TYPE: XR chest 2V DATE OF EXAM: 07/21/2018 COMPARISON: 07/18/2018 HISTORY: Cough and sore throat. History of lung cancer with surgery. Dizziness. TECHNIQUE: Frontal and lateral views of the chest are obtained. FINDINGS: Postsurgical changes are seen at the right lung base with right hemithorax mild volume los s and pleural scarring of the costophrenic angle. No focal consolidation, pleural effusion or pneumot horax. Cardia mediastinal silhouette is within normal limits. IMPRESSION: Postsurgical change of the right lung base with no acute cardiopulmonary process.
[2018-07-21] MEDS ORDERED: MAGNESIUM SULFATE-D5W PMX 1 GM in DEXTROSE/WATER 1 100ML.BAG IVPB ONE (11:31)
[2018-07-21 12:22] LABS: Appearance,Urine Clear (Clear); Bacteria,Urine Many /hpf; Bilirubin,Urine Negative (Negative); Blood,Urine Trace (Negative); Color,Urine Yellow; Glucose,Urine (UA) Negative (Negative); Ketones,Urine Negative (Negative); Leukocyte Esterase,Urine Small (Negative); Mucus,Urine Rare /hpf; Nitrite,Urine Negative (Negative); PH, Urine 6.5 (5.0-8.0); Protein,Urine Negative (Negative); RBC,Urine 1 /hpf (0-5); Specific Gravity,Urine 1.005 (1.001-1.035); Squamous Epithelial Cell,Urine 3 /hpf (0-4); Urobilinogen,Urine <2.0 mg/dL (<2.0); WBC,Urine 5 /hpf (0-5)
[2018-07-21 14:42] VITALS: BP 114/80; PULSE 91; TEMP 98.9
== END 2018-07-21 14:49 | disposition home or self-care (01) ==
LOC: EC 08:33
DX: E86.0 Dehydration (principal); R11.10 Vomiting, unspecified; E78.5 Hyperlipidemia, unspecified; I10 Essential (primary) hypertension; I25.2 Old myocardial infarction; F17.200 Nicotine dependence, unspecified, uncomplicated; Z79.82 Long term (current) use of aspirin; Z79.02 Long term (current) use of antithrombotics/antiplatelets; Z79.899 Other long term (current) drug therapy; Z88.0 Allergy status to penicillin; Z85.118 Personal history of other malignant neoplasm of bronchus and lung; Z85.21 Personal history of malignant neoplasm of larynx; Z92.3 Personal history of irradiation; Z95.5 Presence of coronary angioplasty implant and graft
CPT/HCPCS: 36415; 93005; 80053; 82550; 82553; 83735; 84484; 85025; 81001; 71046; 99285; 96365; 96361 ×5; J3475

== ENCOUNTER 2018-07-23 13:10 | Inpatient (IN) | payer OTHER ==
[2018-07-23 15:35] LABS: Basophils % (A) 0 %; Eosinophils # (A) 0.4 k/uL (0-0.7); Eosinophils % (A) 4 %; HCT 44.7 % (34.0-46.0); HGB 14.7 gm/dL (11.4-16.0); Lymphocytes # (A) 0.8 k/uL (1.0-4.8); Lymphocytes % (A) 8 %; MCH 29.1 pg (25.0-35.0); MCHC 32.9 g/dL (31.0-37.0); MCV 88.5 fL (80.0-100.0); Mean Platelet Volume 7.7; Monocytes # (A) 0.7 k/uL (0-1.0); Monocytes % (A) 6 %; Neutrophils # (A) 8.9 k/uL (1.3-7.7); Neutrophils % (A) 81 %; Platelet Count 322 k/uL (150-450); RBC 5.05 m/uL (3.80-5.40); RDW 14.2 % (11.5-15.5)
[2018-07-23 15:41] LABS: Potassium 4.2 mmol/L (3.5-5.1)
[2018-07-23 15:42] LABS: Albumin 3.6 g/dL (3.5-5.0); Calcium 9.7 mg/dL (8.4-10.2); Total Bilirubin 0.6 mg/dL (0.2-1.3); Total Protein 6.6 g/dL (6.3-8.2)
[2018-07-23 16:32] LABS: Appearance,Urine Turbid (Clear); Bacteria,Urine Moderate /hpf; Bilirubin,Urine Negative (Negative); Blood,Urine Small (Negative); Color,Urine Light Red; Glucose,Urine (UA) Negative (Negative); Ketones,Urine Trace (Negative); Leukocyte Esterase,Urine Moderate (Negative); Mucus,Urine Few /hpf; Nitrite,Urine Negative (Negative); Protein,Urine 1+ (Negative); RBC,Urine 6 /hpf (0-5); Squamous Epithelial Cell,Urine 26 /hpf (0-4); WBC,Urine 52 /hpf (0-5)
--- NOTE | 2018-07-23 16:36 | CT ---
EXAMINATION TYPE: CT abdomen pelvis w con DATE OF EXAM: 07/23/2018 COMPARISON: None HISTORY: Abdominal distention and pain CT DLP: 969.3 mGycm CONTRAST: CT scan of the abdomen and pelvis is performed without Oral Contrast and with IV Contrast, patient in jected with 100 mL of Isovue 300. FINDINGS: LUNG BASES-: Multiple small pulmonary nodules are seen bilaterally felt to reflect metastatic disease . LIVER/GB: No calcified gallstones. 8-10 small hepatic hypoattenuating lesions the largest within th e periphery of the medial segment right hepatic lobe measuring 1.3 cm compatible with metastatic dise ase. Biliary tree is of normal caliber. PANCREAS: No inflammation. No distinct mass. SPLEEN: No splenic enlargement. No lesion seen. ADRENALS: No nodule. No thickening. KIDNEYS/BLADDER: No hydronephrosis. No nephrolithiasis. No distinct renal mass. Urinary bladder g rossly unremarkable. BOWEL: Normal appendix. Normal bowel caliber. No inflammation. GENITAL ORGANS: Solid right ovarian mass measuring 4.3 x 3.1 cm felt to reflect neoplasm until prove n otherwise. Nodular appearance throughout the uterus with exophytic partially calcified lesion may r eflect underlying leiomyomatous change. Nodularity of the left ovary on noted as well. LYMPH NODES: No greater than 1cm abdominal or pelvic lymph nodes are appreciated. AORTA: No significant abnormality. OSSEOUS STRUCTURES: No significant abnormality is seen. OTHER: Moderate ascites noted with nodularity of the greater omentum felt to reflect metastatic disea se. Scattered peritoneal nodularity noted as well. IMPRESSION: 1. 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 There are m etastatic lesions to the liver as well as small nodules to both lung bases. Large amount of ascites i s noted. Neoplasm of other etiology not excluded.
--- NOTE | 2018-07-23 16:48 | ED ---
General Adult HPI - General Chief complaint: Abdominal Pain Stated complaint: Abd pain,lightheaded,weak Time Seen by Provider: 07/23/18 15:36 Source: patient, RN notes reviewed Mode of arrival: ambulatory Limitations: no limitations - History of Present Illness Initial comments: 52-year-old female presents to the emergency department for a chief complaint of upper abdominal pain. Patient states this has been ongoing for about 2 weeks. Patient states it is a dull aching pain. Patient states it is worse when she lies down and better when sitting up. She denies nausea or vomiting. She denies pain worsening after eating. Patient does have a history of lung cancer, hyperlipidemia, hypertension, myocardial infarction. Patient underwent radiation for throat cancer about one month ago. Patient states she has also felt weak and had a decreased appetite over the past few weeks. Patient has no other complaints at this time including shortness of breath, chest pain, nausea or vomiting, headache, or visual changes. - Related Data Home Medications Medication Instructions Recorded Confirmed Aspirin 81 mg PO DAILY 10/21/13 07/23/18 Atorvastatin [Lipitor] 80 mg PO DAILY 10/21/13 07/23/18 Clopidogrel [Plavix] 75 mg PO DAILY 10/21/13 07/23/18 Losartan Potassium [Cozaar] 100 mg PO DAILY 10/21/13 07/23/18 Metoprolol Tartrate [Lopressor] 50 mg PO BID 10/21/13 07/23/18 amLODIPine [Norvasc] 10 mg PO DAILY 08/14/14 07/23/18 Morphine Sulfate ER [Ms Contin] 15 mg PO Q12HR 07/21/18 07/23/18 oxyCODONE-APAP 10-325MG [Percocet 1 tab PO QID PRN 07/21/18 07/23/18 10-325 mg] Previous Rx's Medication Instructions Recorded Nitrofurantoin Monohyd/M-Cryst 100 mg PO Q12HR #20 cap 07/18/18 [Macrobid] Ondansetron Odt [Zofran Odt] 4 mg PO Q8HR PRN #10 tab 07/21/18 Allergies Allergy/AdvReac Type Severity Reaction Status Date / Time Penicillins Allergy Unknown Verified 07/23/18 15:57 Childhood Review of Systems ROS Statement: Those systems with pertinent positive or pertinent negative responses have been documented in the HPI. ROS Other: All systems not noted in ROS Statement are negative. Past Medical History Past Medical History: Cancer, GERD/Reflux, Hyperlipidemia, Hypertension, Myocardial Infarction ([place]) Additional Past Medical History / Comment(s): BRAIN ANEURSYM, LUNG CA, CARPAL TUNNEL RIGHT WRIST, throat CA dx apr 2018 Last Myocardial Infarction Date:: 04/30/2013 History of Any Multi-Drug Resistant Organisms: None Reported Past Surgical History: Heart Catheterization, Orthopedic Surgery, Tubal Ligation, Uterine Ablation Additional Past Surgical History / Comment(s): ANGIOPLASTY FOR BRAIN ANEURSYM, CARPEL TUNNEL RIGHT WRIST , and laparoscopy, PARTIAL RIGHT LUNG REMOVAL ,PTCA, Past Anesthesia/Blood Transfusion Reactions: No Reported Reaction Past Psychological History: Anxiety, Panic Disorder Smoking Status: Current some day smoker Past Alcohol Use History: None Reported Past Drug Use History: None Reported - Past Family History Mother Family Medical History: Cancer Father Family Medical History: Cancer General Exam Limitations: no limitations General appearance: alert, in no apparent distress Head exam: Present: atraumatic, normocephalic, normal inspection Eye exam: Present: normal appearance, PERRL, EOMI. Absent: scleral icterus, conjunctival injection, periorbital swelling ENT exam: Present: normal exam, mucous membranes moist Neck exam: Present: normal inspection, full ROM. Absent: tenderness, meningismus, lymphadenopathy Respiratory exam: Present: normal lung sounds bilaterally. Absent: respiratory distress, wheezes, rales, rhonchi, stridor Cardiovascular Exam: Present: regular rate, normal rhythm, normal heart sounds. Absent: systolic murmur, diastolic murmur, rubs, gallop, clicks GI/Abdominal exam: Present: soft, tenderness (tenderness noted in RUQ/epigastric area with mild distension), normal bowel sounds. Absent: distended, guarding, rebound, rigid Neurological exam: Present: alert, oriented X3, CN II-XII intact Psychiatric exam: Present: normal affect, normal mood Course Vital Signs 07/23/18 07/23/18 13:38 17:13 Temperature 98.5 F 97.7 F Pulse Rate 87 91 Respiratory 18 18 Rate Blood Pressure 107/74 116/59 O2 Sat by Pulse 98 94 L Oximetry Medical Decision Making - Medical Decision Making 52-year-old female with a past medical history of lung cancer treated in 2016 and throat cancer treated with radiation approximately one month ago presents to the emergency department for chief coming upper abdominal pain. Patient states she has been seen here twice for weakness in the past week but did not remember to tell them about her abdominal pain. On presentation patient does have right upper quadrant and epigastric tenderness. CBC and CMP are unremarkable. Given patient's history of cancer computed tomography scan was ordered. CT findings felt to reflect ovarian carcinoma with omental caking and peritoneal seeding with possible metastatic lesions to the liver as well as small nodules of both lung bases. Large amount of ascites. Patient see's Dr Fatima for oncology, will be admitted for oncology consult and further management. - Lab Data Result diagrams: 07/23/18 15:19 07/23/18 15:19 Lab Results 07/23/18 07/23/18 07/23/18 Range/Units 15:19 15:19 16:17 WBC 11.0 H (3.8-10.6) k/uL RBC 5.05 (3.80-5.40) m/uL Hgb 14.7 (11.4-16.0) gm/dL Hct 44.7 (34.0-46.0) % MCV 88.5 (80.0-100.0) fL MCH 29.1 (25.0-35.0) pg MCHC 32.9 (31.0-37.0) g/dL RDW 14.2 (11.5-15.5) % Plt Count 322 (150-450) k/uL Neutrophils % 81 % Lymphocytes % 8 % Monocytes % 6 % Eosinophils % 4 % Basophils % 0 % Neutrophils # 8.9 H (1.3-7.7) k/uL Lymphocytes # 0.8 L (1.0-4.8) k/uL Monocytes # 0.7 (0-1.0) k/uL Eosinophils # 0.4 (0-0.7) k/uL Basophils # 0.0 (0-0.2) k/uL Sodium 141 (137-145) mmol/L Potassium 4.2 (3.5-5.1) mmol/L Chloride 111 H (98-107) mmol/L Carbon Dioxide 22 (22-30) mmol/L Anion Gap 8 mmol/L BUN 10 (7-17) mg/dL Creatinine 0.99 (0.52-1.04) mg/dL Est GFR (CKD-EPI)AfAm 77 (>60 ml/min/1.73 sqM) Est GFR (CKD-EPI)NonAf 67 (>60 ml/min/1.73 sqM) Glucose 93 (74-99) mg/dL Calcium 9.7 (8.4-10.2) mg/dL Total Bilirubin 0.6 (0.2-1.3) mg/dL AST 37 H (14-36) U/L ALT 36 (9-52) U/L Alkaline Phosphatase 94 (38-126) U/L Total Protein 6.6 (6.3-8.2) g/dL Albumin 3.6 (3.5-5.0) g/dL Amylase 39 (30-110) U/L Lipase 58 (23-300) U/L Urine Color Light Red Urine Appearance Turbid H (Clear) Urine pH 6.0 (5.0-8.0) Ur Specific [place] 1.020 (1.001-1.035) Urine Protein 1+ H (Negative) Urine Glucose (UA) Negative (Negative) Urine Ketones Trace H (Negative) Urine Blood Small H (Negative) Urine Nitrite Negative (Negative) Urine Bilirubin Negative (Negative) Urine Urobilinogen 2.0 (<2.0) mg/dL Ur Leukocyte Esterase Moderate H (Negative) Urine RBC 6 H (0-5) /hpf Urine WBC 52 H (0-5) /hpf Urine WBC Clumps Few H (None) /hpf Ur Squamous Epith Cells 26 H (0-4) /hpf Urine Bacteria Moderate H (None) /hpf Urine Mucus Few H (None) /hpf Disposition Clinical Impression: Ascites, Ovarian mass, Liver lesion Disposition: ADMITTED IP TO THIS HOSP Condition: Fair Is patient prescribed a controlled substance at d/c from ED?: No Referrals: Latisha Ziegler MD [Primary Care Provider] - 1-2 days Time of Disposition: 17:19
[2018-07-23] MEDS ORDERED: SODIUM CHLORIDE 0.9% 500 ML 500 ML IV STA (17:09)
[2018-07-23] MEDS ORDERED: NALOXONE 0.4 MG/ML 1 ML VIAL IV PRN (17:20)
[2018-07-23] MEDS: KETOROLAC 30 MG/ML 1 ML VIAL IVP PRN (18:44)
[2018-07-23] MEDS: SODIUM CHLORIDE 0.9% 1,000 ML IV SCH (18:56)
[2018-07-24] MEDS: KETOROLAC 30 MG/ML 1 ML VIAL IVP PRN ×2 (04:04→17:57)
[2018-07-24] MEDS: SODIUM CHLORIDE 0.9% 1,000 ML IV SCH ×2 (06:25→17:58)
[2018-07-24] MEDS: ONDANSETRON 4 MG/2 ML VIAL IVP PRN (10:08)
[2018-07-24] MEDS: MORPHINE SULFATE 4 MG/ML SYRINGE IV PRN (10:14)
[2018-07-24] MEDS ORDERED: FAMOTIDINE 20 MG/2 ML VIAL IV SCH (10:15)
--- NOTE | 2018-07-24 15:43 | P.HPIM ---
History of Present Illness H&P Date: 07/24/18 Chief Complaint: Abdominal pain Patient is a 52-year-old female with a known history of lung cancer status post right lower lobe resection, recently diagnosed with throat cancer status post radiation therapy completed on 05/31/2018, hypertension, hyperlipidemia, GERD and also history of brain aneurysm status post angioplasty came to ER with complaints of abdominal pain mainly upper abdomen and right upper back. Patient has been having pain for the past 2 weeks which is a dull aching pain. Pain gets worse with lying down on the side. No associated fever or chills. Patient is being treated for urinary tract infection with nitrofurantoin as an outpatient. Denied any chest pain or shortness of breath. Patient has not been eating very well since radiation therapy. Patient felt very weak and decreased appetite. No nausea vomiting or diarrhea. No headache or dizziness or lightheadedness. CT of the abdomen pelvis showed findings felt to reflect Ovarian carcinoma with omental caking and peritoneal seeding. There are metastatic lesions to the liver as well as small nodules in both lung bases. Large amount of ascites is noted. Plan neoplasm of other etiologies not excluded. Review of Systems Constitutional: Patient denies any fever or chills . Generalized weakness and weight loss.. Abdomen: Abdominal pain and nausea. No acute source of vomiting. No diarrhea or constipation. Cardiovascular: Patient denies any chest pain or short of breath no palpitations. Respiratory: patient denied any cough is from production. No shortness of breath Neurologic: Patient denied any numbness or tingling headache. Musculoskeletal: Patient denies any complaints of joint swelling or deformity. Skin: Negative Psychiatric: Negative Endocrine: No heat or cold intolerance. No recent weight gain. Genitourinary: No dysuria or hematuria. All other 14 point ROS negative except the above Past Medical History Past Medical History: Cancer, GERD/Reflux, Hyperlipidemia, Hypertension, Myocardial Infarction ([place]) Additional Past Medical History / Comment(s): BRAIN ANEURSYM, LUNG CA, CARPAL TUNNEL RIGHT WRIST, throat CA dx apr 2018 Last Myocardial Infarction Date:: 04/30/2013 History of Any Multi-Drug Resistant Organisms: None Reported Past Surgical History: Heart Catheterization, Orthopedic Surgery, Tubal Ligation, Uterine Ablation Additional Past Surgical History / Comment(s): ANGIOPLASTY FOR BRAIN ANEURSYM, CARPEL TUNNEL RIGHT WRIST , and laparoscopy, PARTIAL RIGHT LUNG REMOVAL ,PTCA, Past Anesthesia/Blood Transfusion Reactions: No Reported Reaction Past Psychological History: Anxiety, Panic Disorder Smoking Status: Current some day smoker Past Alcohol Use History: None Reported Past Drug Use History: None Reported - Past Family History Mother Family Medical History: Cancer Father Family Medical History: Cancer Medications and Allergies Home Medications Medication Instructions Recorded Confirmed Type Aspirin 81 mg PO DAILY 10/21/13 07/23/18 History Atorvastatin [Lipitor] 80 mg PO DAILY 10/21/13 07/23/18 History Clopidogrel [Plavix] 75 mg PO DAILY 10/21/13 07/23/18 History Losartan Potassium [Cozaar] 100 mg PO DAILY 10/21/13 07/23/18 History Metoprolol Tartrate [Lopressor] 50 mg PO BID 10/21/13 07/23/18 History amLODIPine [Norvasc] 10 mg PO DAILY 08/14/14 07/23/18 History Nitrofurantoin Monohyd/M-Cryst 100 mg PO Q12HR #20 cap 07/18/18 07/23/18 Rx [Macrobid] Morphine Sulfate ER [Ms Contin] 15 mg PO Q12HR 07/21/18 07/23/18 History Ondansetron Odt [Zofran Odt] 4 mg PO Q8HR PRN #10 tab 07/21/18 07/23/18 Rx oxyCODONE-APAP 10-325MG [Percocet 1 tab PO QID PRN 07/21/18 07/23/18 History 10-325 mg] Allergies Allergy/AdvReac Type Severity Reaction Status Date / Time Penicillins Allergy Unknown Verified 07/23/18 15:57 Childhood Physical Exam Vitals: Vital Signs Temp Pulse Pulse Resp BP BP Pulse Ox 07/24/18 05:00 98.3 F 103 H 16 122/78 97 07/24/18 00:00 16 07/23/18 20:46 97.8 F 93 16 111/76 97 07/23/18 19:33 97.9 F 93 17 114/77 97 07/23/18 19:06 98.1 F 55 L 16 96/53 96 07/23/18 17:13 97.7 F 91 18 116/59 94 L 07/23/18 13:38 98.5 F 87 18 107/74 98 Intake and Output 07/23/18 07/24/18 07/24/18 22:59 06:59 14:59 Intake Total 630 540 Balance 630 540 Intake: Intake, IV Titration 150 Amount Sodium Chloride 0.9% 1, 150 000 ml @ 75 mls/hr IV . [id number] [facility] Rx#:[id number] Oral 480 540 Other: # Voids 1 1 PHYSICAL EXAMINATION: Patient is lying in the bed comfortably, no acute distress, awake alert and oriented.. HEENT: Normocephalic. Neck is supple. Neck Discoloration due to recent radiation. Pupils reactive. Nostrils clear. Oral cavity is moist. Ears reveal no drainage. Neck reveals no JVD, carotid bruits, or thyromegaly. CHEST EXAMINATION: Trachea is central. Symmetrical expansion. Right lower lung diminished breath sounds. Lung cano clear to auscultation and percussion. CARDIAC: Normal S1, S2 with no gallops. No murmurs ABDOMEN: Soft. Distended. Mild right upper quadrant tenderness with deep palpation.. Bowel sounds normal. No organomegaly. No abdominal bruits. Extremities: reveal no edema. No clubbing or cyanosis Neurologically awake, alert, oriented x3 with well-coordinated movements. No focal deficits noted Skin: No rash or skin lesions. Psychiatric: Coperative. Nonsuicidal Musculoskeletal: No joint swelling or deformity. Normal range of motion. Results CBC & Chem 7: 07/23/18 15:19 07/23/18 15:19 Labs: Abnormal Lab Results - Last 24 Hours (Table) 07/23/18 07/23/18 07/23/18 Range/Units 15:19 15: 16:17 WBC 11.0 H (3.8-10.6) k/uL Neutrophils # 8.9 H (1.3-7.7) k/uL Lymphocytes # 0.8 L (1.0-4.8) k/uL Chloride 111 H (98-107) mmol/L AST 37 H (14-36) U/L Urine Appearance Turbid H (Clear) Urine Protein 1+ H (Negative) Urine Ketones Trace H (Negative) Urine Blood Small H (Negative) Ur Leukocyte Esterase Moderate H (Negative) Urine RBC 6 H (0-5) /hpf Urine WBC 52 H (0-5) /hpf Urine WBC Clumps Few H (None) /hpf Ur Squamous Epith Cells 26 H (0-4) /hpf Urine Bacteria Moderate H (None) /hpf Urine Mucus Few H (None) /hpf Thrombosis Risk Factor Assmnt - DVT/VTE Prophylaxis DVT/VTE Prophylaxis: Pharmacologic Prophylaxis ordered - Choose All That Apply Any of the Below Risk Factors Present?: Yes Each Factor Represents 1 point: Age 41-60 years, Obesity (BMI >25) Each Risk Factor Represents 2 Points: Malignancy Thrombosis Risk Factor Assessment Total Risk Factor Score: 4 Thrombosis Risk Factor Assessment Level: Moderate Risk Assessment and Plan Assessment: Abdominal pain likely due to suspected ovarian carcinoma with metastatic lesions to peritoneum, liver and lower lungs. Large ascites Recent history of throat cancer status post radiation therapy completed on 05/31/2018 Acute urinary tract infection. Failed outpatient therapy History of lung cancer status post right partial lung resection History of brain aneurysm status post angioplasty Hypertension Hyperlipidemia GERD History of NC Anxiety and panic disorder Nicotine addiction/current some day smoker Obesity with BMI 31.9 DVT prophylaxis with heparin subcu Plan: Patient will be continued on IV hydration and symptomatic management for nausea. Pain management. Continue with antibiotics in form of ceftriaxone. We will send urine for culture. Oncology was consulted. We will hold aspirin Plavix for possible biopsy. Further recommendations based on the clinical course. Prognosis is guarded. Time with Patient: Greater than 30
[2018-07-24] MEDS: HEPARIN SODIUM,PORCINE 5,000 UNIT/ML 1 ML VIAL SQ SCH ×2 (17:52→23:47)
--- NOTE | 2018-07-24 19:18 | P.CONS ---
History of Present Illness - Reason for Consult Consult date: 07/24/18 Malignanies Requesting physician: Kaushik Simms - Chief Complaint Abdominal Ascites - History of Present Illness Ms Krishna is a pleasant AAF, who was noted to have a nodule in the RLL, on routine CXR done in early 07/28. A CT of the chest confirmed a 2.4 x 2 x 2.8 cm mass, with no enlarged nodes. Bronchoscopy with biopsy was positive for poorly differentiated adenocarcinoma ( EGFR and ROS 1 negative) She was referred to [facility], and had a rt lower lobectomy in late 08/28. Per the pt, the tumor was " very small". An Oncology f/u was advised, but she went to [place], and came for her 1st OV only on 10/21/15. She does have a longstanding h/o smoking. Her path report was received after her 1st visit, and revealed a T2a ( 4cm) N0 ( 0/3) adenocarcinoma. Based on the size and small number of nodes, adjuvant chemo with Cisplatin and Alimta was recommended. The pt was initially agreeable. However, she did not f/u subsequently. She spent the winter of 2015- in [place], and did have some oncology surveillance, with a PET in 07/29, that was negative per her. She was referred back by her PCP, and seen on 09/08/16. She stated that she did not come back to the office in 2015 as she was " scared of the chemo" on thinking further, and decided not to go through with it. The PET result was subsequently obtained, and showed non specific uptake with borderline size in mediastinal, axillary and inguinal nodes. Incidentally a 2 cm nodule with mild uptake was seen in the rt breast. The pt had a mammogram in 11/28 which was negative. She did not keep her appts in 12/29 or 06/01. She did have a PET in 03/31 which was negative other than some cutaneous uptake in the rt shoulder area ( the pt has a long standing h/o hidraadenitis) She was referred back by her PCP again to reestablish f/u, and seen on 01/30/18. She had been having hoarseness since early 12/30 and was evaluated by ENT, with inflammation and polyps found per the pt. 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 Recently seen in office and complained of sore throat and persistent fatigue. CT of the abdomen pelvis showed findings felt to reflect Ovarian carcinoma with omental caking and peritoneal seeding. There are metastatic lesions to the liver as well as small nodules in both lung bases. Large amount of ascites is noted. we will need tissue diagnosis will start with paracentesis. Review of Systems A 14 point review of systems assessed and completed and all negative except HPI Past Medical History Past Medical History: Cancer, GERD/Reflux, Hyperlipidemia, Hypertension, Myocardial Infarction ([place]) Additional Past Medical History / Comment(s): BRAIN ANEURSYM, LUNG CA, CARPAL TUNNEL RIGHT WRIST, throat CA dx apr 2018 Last Myocardial Infarction Date:: 04/30/2013 History of Any Multi-Drug Resistant Organisms: None Reported Past Surgical History: Heart Catheterization, Orthopedic Surgery, Tubal Ligation, Uterine Ablation Additional Past Surgical History / Comment(s): ANGIOPLASTY FOR BRAIN ANEURSYM, CARPEL TUNNEL RIGHT WRIST , and laparoscopy, PARTIAL RIGHT LUNG REMOVAL ,PTCA, Past Anesthesia/Blood Transfusion Reactions: No Reported Reaction Past Psychological History: Anxiety, Panic Disorder Smoking Status: Current some day smoker Past Alcohol Use History: None Reported Past Drug Use History: None Reported - Past Family History Mother Family Medical History: Cancer Father Family Medical History: Cancer Medications and Allergies Home Medications Medication Instructions Recorded Confirmed Type Aspirin 81 mg PO DAILY 10/21/13 07/23/18 History Atorvastatin [Lipitor] 80 mg PO DAILY 10/21/13 07/23/18 History Clopidogrel [Plavix] 75 mg PO DAILY 10/21/13 07/23/18 History Losartan Potassium [Cozaar] 100 mg PO DAILY 10/21/13 07/23/18 History Metoprolol Tartrate [Lopressor] 50 mg PO BID 10/21/13 07/23/18 History amLODIPine [Norvasc] 10 mg PO DAILY 08/14/14 07/23/18 History Nitrofurantoin Monohyd/M-Cryst 100 mg PO Q12HR #20 cap 07/18/18 07/23/18 Rx [Macrobid] Morphine Sulfate ER [Ms Contin] 15 mg PO Q12HR 07/21/18 07/23/18 History Ondansetron Odt [Zofran Odt] 4 mg PO Q8HR PRN #10 tab 07/21/18 07/23/18 Rx oxyCODONE-APAP 10-325MG [Percocet 1 tab PO QID PRN 07/21/18 07/23/18 History 10-325 mg] Allergies Allergy/AdvReac Type Severity Reaction Status Date / Time Penicillins Allergy Unknown Verified 07/23/18 15:57 Childhood Physical Exam Vitals: Vital Signs Temp Pulse Pulse Resp BP BP Pulse Ox 07/24/18 12:16 97.3 F L 98 17 120/76 97 07/24/18 05:00 98.3 F 103 H 16 122/78 97 07/24/18 00:00 16 07/23/18 20:46 97.8 F 93 16 111/76 97 07/23/18 19:33 97.9 F 93 17 114/77 97 07/23/18 19:06 98.1 F 55 L 16 96/53 96 Intake and Output 07/24/18 07/24/18 07/24/18 06:59 14:59 22:59 Intake Total 540 700 Balance 540 700 Intake: Intake, IV Titration 700 Amount Sodium Chloride 0.9% 1, 600 000 ml @ 75 mls/hr IV . [id number] [facility] Rx#:[id number] cefTRIAXone 1 gm In 100 Sodium Chloride 0.9% 50 ml @ 100 mls/hr IVPB Q24HR [facility] Rx#:[id number] Oral 540 Other: # Voids 1 Weight 82.1 kg Gen: Alert no acute distress Head NCNT Mouth: dry no thrush Lungs: No increased effort bilateral bases diminished Heart: Tachy, Regular Abdomen: Distended, Firm ascites Extremities: Mild BLE Edema Neuro: No sensory or motor deficits Results CBC & Chem 7: 07/23/18 15:19 07/23/18 15:19 CT scan - abdomen: report reviewed CT scan - chest: report reviewed Assessment and Plan Plan: Assessment and Recs: 1. Abdominal Ascites: Concern for new underlying malignancy on CT - Paracentesis for tissue biopsy - Tumor markers ordered 2. HX: NSCLA 3. Hx: Early Stage Larygneal Carcinoma Physician Attestation: I have completed the full history and physical and developed the completed assessment and plan agree with above dictated as a scribe,.
[2018-07-24] MEDS: FAMOTIDINE 20 MG TAB PO SCH (21:01)
[2018-07-25 02:51] LABS: CA27.29 Breast Ca Marker 118.1 U/mL (0.0-38.5)
[2018-07-25] MEDS: SODIUM CHLORIDE 0.9% 1,000 ML IV SCH ×2 (07:07→20:52)
[2018-07-25] MEDS: HEPARIN SODIUM,PORCINE 5,000 UNIT/ML 1 ML VIAL SQ SCH ×3 (07:45→23:10)
[2018-07-25] MEDS: ONDANSETRON 4 MG/2 ML VIAL IVP PRN (07:53)
[2018-07-25 08:52] LABS: Basophils % (A) 0 %; Eosinophils # (A) 0.4 k/uL (0-0.7); Eosinophils % (A) 4 %; HCT 41.3 % (34.0-46.0); Lymphocytes # (A) 0.7 k/uL (1.0-4.8); Lymphocytes % (A) 7 %; MCH 28.2 pg (25.0-35.0); MCHC 31.5 g/dL (31.0-37.0); MCV 89.4 fL (80.0-100.0); Mean Platelet Volume 8.3; Monocytes # (A) 0.6 k/uL (0-1.0); Monocytes % (A) 6 %; Neutrophils % (A) 81 %; Platelet Count 276 k/uL (150-450); RBC 4.62 m/uL (3.80-5.40); RDW 14.5 % (11.5-15.5); WBC 9.8 k/uL (3.8-10.6)
[2018-07-25 08:55] LABS: INR 1.1 (<1.2); Prothrombin Time 11.1 sec (9.0-12.0)
[2018-07-25] MEDS ORDERED: ASPIRIN 81 MG PO SCH (09:00)
[2018-07-25] MEDS ORDERED: CLOPIDOGREL 75 MG TAB PO SCH (09:00)
[2018-07-25 09:06] LABS: ALT 31 U/L (9-52); AST 33 U/L (14-36); Albumin 3.1 g/dL (3.5-5.0); Alkaline Phosphatase 79 U/L (38-126); Anion Gap 9 mmol/L; Blood Urea Nitrogen 7 mg/dL (7-17); Calcium 8.9 mg/dL (8.4-10.2); Carbon Dioxide 19 mmol/L (22-30); Chloride 112 mmol/L (98-107); Glucose 85 mg/dL (74-99); LDH 657 U/L (313-618); Potassium 4.1 mmol/L (3.5-5.1); Sodium 140 mmol/L (137-145); Total Bilirubin 0.5 mg/dL (0.2-1.3); Total Protein 5.8 g/dL (6.3-8.2)
--- NOTE | 2018-07-25 11:35 | US ---
EXAMINATION TYPE: US abdomen limited DATE OF EXAM: 07/25/2018 COMPARISON: NONE CLINICAL HISTORY: ascites, evaluate for possible paracentesis Monday. FINDINGS: Small volume abdominal ascites is seen on the limited images provided. IMPRESSION: Small volume abdominal ascites. This appears adequate for paracentesis at the time of ex amination.
[2018-07-25] MEDS: FAMOTIDINE 20 MG TAB PO SCH ×2 (13:29→20:53)
[2018-07-25] MEDS: ATORVASTATIN 80 MG TAB PO SCH (13:29)
[2018-07-25] MEDS: KETOROLAC 30 MG/ML 1 ML VIAL IVP PRN ×2 (13:36→19:12)
--- NOTE | 2018-07-25 22:26 | P.PN ---
Subjective Progress Note Date: 07/25/18 Principal diagnosis: ABdominal Ascites Ultrasound completed this am, planning paracentesis Monday per radiology Objective - Vital Signs Vital signs: Vital Signs Temp 98.3 F 07/25/18 21:00 Pulse 108 H 07/25/18 21:00 Resp 18 07/25/18 21:00 BP 132/81 07/25/18 21:00 Pulse Ox 97 07/25/18 21:00 Intake & Output 07/25/18 07/25/18 07/26/18 06:59 18:59 06:59 Intake Total 1620 240 Output Total 2 Balance 1620 238 Weight 82.1 kg Intake: Intake, IV Titration 900 Amount Sodium Chloride 0.9% 1, 900 000 ml @ 75 mls/hr IV . [id number] [facility] Rx#:[id number] Oral 720 240 Output: Stool 2 Other: # Voids 1 3 - Exam en: Alert no acute distress Head NCNT Mouth: dry no thrush Lungs: No increased effort bilateral bases diminished Heart: Tachy, Regular Abdomen: Distended, Firm ascites Extremities: Mild BLE Edema Neuro: No sensory or motor deficits - Labs CBC & Chem 7: 07/25/18 08:32 07/25/18 08:32 Labs: Abnormal Lab Results - Last 24 Hours (Table) 07/24/18 07/25/18 07/25/18 Range/Units 15:19 08:32 08:32 Neutrophils # 8.0 H (1.3-7.7) k/uL Lymphocytes # 0.7 L (1.0-4.8) k/uL Chloride 112 H (98-107) mmol/L Carbon Dioxide 19 L (22-30) mmol/L Lactate Dehydrogenase 657 H (313-618) U/L Total Protein 5.8 L (6.3-8.2) g/dL Albumin 3.1 L (3.5-5.0) g/dL Carcinoembryonic Ag 50.3 H (0.0-4.9) ng/mL CA 27-29 118.1 H (0.0-38.5) U/mL CA 125 Antigen 156.7 H (0.0-30.1) U/mL Assessment and Plan Plan: Assessment and Recs: 1. Abdominal Ascites: Concern for new underlying malignancy on CT - Paracentesis for tissue biopsy - Likely Monday - Tumor markers reviewed, likely malignancy consistent with Ovarian origin, will need cytology or tissue cell confirmation, will plan paracentesis to obtain this. 2. HX: NSCLA 3. Hx: Early Stage Larygneal Carcinoma Physician Attestation: I have completed the full history and physical and developed the completed assessment and plan agree with above dictated as a scribe,.
[2018-07-25] MEDS: MORPHINE SULFATE 4 MG/ML SYRINGE IV PRN (22:36)
[2018-07-26] MEDS: KETOROLAC 30 MG/ML 1 ML VIAL IVP PRN ×3 (07:50→19:42)
[2018-07-26] MEDS: ONDANSETRON 4 MG/2 ML VIAL IVP PRN (08:09)
[2018-07-26] MEDS: HEPARIN SODIUM,PORCINE 5,000 UNIT/ML 1 ML VIAL SQ SCH ×3 (08:09→23:17)
[2018-07-26] MEDS: FAMOTIDINE 20 MG TAB PO SCH ×2 (08:09→20:20)
--- NOTE | 2018-07-26 12:11 | P.PN ---
Subjective Progress Note Date: 07/26/18 Principal diagnosis: ABdominal Ascites Discussed with primary team and with patients history of two early stage cancers, now with picture of a third, although with the appearance of metastatic disease would be resonable to obtain tissue from both fluid and liver lesions during procedure on Monday. Objective - Vital Signs Vital signs: Vital Signs Temp 98.2 F 07/26/18 11:24 Pulse 110 H 07/26/18 11:24 Resp 18 07/26/18 11:24 BP 121/78 07/26/18 11:24 Pulse Ox 93 L 07/26/18 11:24 Intake & Output 07/25/18 07/26/18 07/26/18 18:59 06:59 18:59 Intake Total 240 900 Output Total 2 Balance 238 900 Weight 82.1 kg 87 kg Intake: Intake, IV Titration 900 Amount Sodium Chloride 0.9% 1, 900 000 ml @ 75 mls/hr IV . [id number] [facility] Rx#:[id number] Oral 240 Output: Stool 2 Other: Voiding Method Toilet Toilet # Voids 3 - Exam en: Alert no acute distress Head NCNT Mouth: dry no thrush Lungs: No increased effort bilateral bases diminished Heart: Tachy, Regular Abdomen: Distended, Firm ascites Extremities: Mild BLE Edema Neuro: No sensory or motor deficits - Labs CBC & Chem 7: 07/25/18 08:32 07/25/18 08:32 Assessment and Plan Plan: Assessment and Recs: 1. Abdominal Ascites: Concern for new underlying malignancy on CT - Paracentesis for tissue biopsy - Likely Monday - Tumor markers reviewed, likely malignancy consistent with Ovarian origin, will need cytology or tissue cell confirmation, will plan paracentesis to obtain this. 2. New Right solid Ovarian Mass - Concerning for underlying Malignancy: - Approx 3.4x3.1cm 3. Small Newly Noted Hepatic Lesions: - Approx 8-10 mentioned on Imaging with average size 1-1.5cm, will as IR to obtain biopsy of liver lesion as well during ascites sampling to assess for two primary sites and to identifity the primary of the metastatic appearing melignancy in liver as unknown with her complicated cancer history - Discussed with IR, with PLavix being taken on Monday will need to wait full 5 days prior to biopsy of liver lesions, if discharged before ok to perform as outpatient. Plan for biopsy of liver lesions as well as paracentesis fluid 4. HX: NSCLA 5. Hx: Early Stage Larygneal Carcinoma Physician Attestation: I have completed the full history and physical and developed the completed assessment and plan agree with above dictated as a scribe,.
[2018-07-26] MEDS: SODIUM CHLORIDE 0.9% 1,000 ML IV SCH (13:07)
--- NOTE | 2018-07-26 15:12 | P.PN ---
Subjective Progress Note Date: 07/26/18 Interval history: Patient is a 52-year-old female with a known history of lung cancer status post right lower lobe resection, recently diagnosed with throat cancer status post radiation therapy completed on 05/31/2018, hypertension, hyperlipidemia, GERD and also history of brain aneurysm status post angioplasty came to ER with complaints of abdominal pain mainly upper abdomen and right upper back. Patient has been having pain for the past 2 weeks which is a dull aching pain. Pain gets worse with lying down on the side. No associated fever or chills. Patient is being treated for urinary tract infection with nitrofurantoin as an outpatient. Denied any chest pain or shortness of breath. Patient has not been eating very well since radiation therapy. Patient felt very weak and decreased appetite. No nausea vomiting or diarrhea. No headache or dizziness or lightheadedness. CT of the abdomen pelvis showed findings felt to reflect Ovarian carcinoma with omental caking and peritoneal seeding. There are metastatic lesions to the liver as well as small nodules in both lung bases. Large amount of ascites is noted. Plan neoplasm of other etiologies not excluded. 07/26/2018 complains of right side mid abdominal pain, controlled with Toradol during the day and morphine at night. Complains of sense of taste, altered- everything tastes like metal. Diet intake, fair, but does well with ensure supplements. Scheduled for paracentesis with tissue biopsy, liver biopsy, tomorrow. Mild tachycardia. Denies chest pain, palpitations or increasing shortness of breath. Objective - Vital Signs Vital signs: Vital Signs Temp 98.2 F 07/26/18 11:24 Pulse 110 H 07/26/18 11:24 Resp 18 07/26/18 11:24 BP 121/78 07/26/18 11:24 Pulse Ox 93 L 07/26/18 11:24 Intake & Output 07/25/18 07/26/18 07/26/18 18:59 06:59 18:59 Intake Total 344 142 6798 Output Total 2 Balance 782 944 3411 Weight 82.1 kg 87 kg Intake: Intake, IV Titration 900 690 Amount Sodium Chloride 0.9% 1, 900 640 000 ml @ 75 mls/hr IV . [id number] [facility] Rx#:[id number] cefTRIAXone 1 gm In 50 Sodium Chloride 0.9% 50 ml @ 100 mls/hr IVPB Q24HR [facility] Rx#:[id number] Oral 240 600 Output: Stool 2 Other: Voiding Method Toilet Toilet # Voids 3 2 - Exam Patient is sitting up at side of bed, no acute distress, awake alert and oriented. HEENT: Normocephalic. Neck is supple. Neck Discoloration due to recent radiation. Pupils reactive. Oral cavity is moist. Neck reveals no JVD, carotid bruits, or thyromegaly. CHEST EXAMINATION: Trachea is central. Symmetrical expansion. Right lower lung diminished breath sounds. Lung cano clear to auscultation and percussion. CARDIAC: Normal S1, S2 with no gallops. No murmurs. Mild tachycardia. ABDOMEN: Soft. Distended. Mild right upper quadrant tenderness with deep palpation. Bowel sounds normal. No organomegaly. No abdominal bruits. Extremities: reveal minimal bilateral lower extremity edema. No clubbing or cyanosis Neurologically awake, alert, oriented x3 with well-coordinated movements. No focal deficits noted Skin: No rash - Labs CBC & Chem 7: 07/25/18 08:32 07/25/18 08:32 Assessment and Plan Assessment: Abdominal pain likely due to suspected ovarian carcinoma with metastatic lesions to peritoneum, liver and lower lungs. Large ascites Recent history of throat cancer status post radiation therapy completed on 05/31/2018 Acute urinary tract infection. Failed outpatient therapy History of lung cancer status post right partial lung resection History of brain aneurysm status post angioplasty Hypertension Hyperlipidemia GERD History of [place] Anxiety and panic disorder Nicotine addiction/current some day smoker Obesity with BMI 31.9 Plan: Continue on current medication regime ,monitoring and symptomatic treatment. Maintain IV antibiotics, gentle IV fluid hydration. Pain management. DVT prophylaxis with heparin subcu. Follow closely with oncology. Prognosis guarded given multiple complex medical issues. The impression and plan of care has been dictated as directed. : I performed a history and examination of this patient, discussed the same with the dictator. I agree with the dictator's note ,documented as a scribe. Any additional findings or plans will be noted.
[2018-07-26] MEDS: ATORVASTATIN 80 MG TAB PO SCH (16:39)
[2018-07-26] MEDS: METOPROLOL TARTRATE 50 MG TAB PO SCH (20:20)
[2018-07-27] MEDS: KETOROLAC 30 MG/ML 1 ML VIAL IVP PRN ×2 (02:31→08:41)
[2018-07-27] MEDS: HEPARIN SODIUM,PORCINE 5,000 UNIT/ML 1 ML VIAL SQ SCH (08:40)
[2018-07-27] MEDS: ATORVASTATIN 80 MG TAB PO SCH (08:40)
[2018-07-27] MEDS: METOPROLOL TARTRATE 50 MG TAB PO SCH (08:40)
[2018-07-27] MEDS: FAMOTIDINE 20 MG TAB PO SCH (08:40)
[2018-07-27 11:39] VITALS: BMI 34.0
[2018-07-27] MEDS: SODIUM CHLORIDE 0.9% 1,000 ML IV SCH ×2 (12:09→15:23)
[2018-07-27 13:46] VITALS: RESP 16; TEMP 98
[2018-07-27 15:16] VITALS: BP 119/73; PULSE 86
--- NOTE | 2018-07-27 16:20 | P.PN ---
Subjective Progress Note Date: 07/27/18 Principal diagnosis: ABdominal Ascites Status Post 5.9L off and cytology sent, patoient ok for discharge, will plan biopsy liver next week as outpatient. Objective - Vital Signs Vital signs: Vital Signs Temp 98 F 07/27/18 13:45 Pulse 86 07/27/18 15:16 Resp 16 07/27/18 15:16 BP 119/73 07/27/18 15:16 Pulse Ox 96 07/27/18 15:16 Intake & Output 07/26/18 07/27/18 07/27/18 18:59 06:59 18:59 Intake Total 1290 650 Balance 1290 650 Weight 87.1 kg 87.1 kg Intake: Intake, IV Titration 690 650 Amount Sodium Chloride 0.9% 1, 640 600 000 ml @ 75 mls/hr IV . [id number] [facility] Rx#:[id number] cefTRIAXone 1 gm In 50 50 Sodium Chloride 0.9% 50 ml @ 100 mls/hr IVPB Q24HR [facility] Rx#:[id number] Oral 600 Other: Voiding Method Toilet Toilet Toilet # Voids 2 1 - Exam en: Alert no acute distress Head NCNT Mouth: dry no thrush Lungs: No increased effort bilateral bases diminished Heart: Tachy, Regular Abdomen: Distended, Firm ascites Extremities: Mild BLE Edema Neuro: No sensory or motor deficits - Labs CBC & Chem 7: 07/25/18 08:32 07/25/18 08:32 Assessment and Plan Plan: Assessment and Recs: 1. Abdominal Ascites: Concern for new underlying malignancy on CT - Paracentesis today - Tumor markers reviewed, likely malignancy consistent with Ovarian origin, will need cytology or tissue cell confirmation, will plan paracentesis to obtain this. - Status post 5.9L off today 2. New Right solid Ovarian Mass - Concerning for underlying Malignancy: - Approx 3.4x3.1cm 3. Small Newly Noted Hepatic Lesions: - Approx 8-10 mentioned on Imaging with average size 1-1.5cm, will as IR to obtain biopsy of liver lesion as well during ascites sampling to assess for two primary sites and to identifity the primary of the metastatic appearing melignancy in liver as unknown with her complicated cancer history - Discussed with IR, with PLavix being taken on Monday will need to wait full 5 days prior to biopsy of liver lesions, if discharged before ok to perform as outpatient. Plan for biopsy of liver lesions as well as paracentesis fluid 4. HX: NSCLA 5. Hx: Early Stage Larygneal Carcinoma Ok for discharge from oncology standpoint, await cytology Continue hold AC plavix and aspirin until liver biopsy as outpatient next week. Physician Attestation: I have completed the full history and physical and developed the completed assessment and plan agree with above dictated as a scribe,.
--- NOTE | 2018-07-27 16:24 | P.DS ---
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 Large ascites, status post paracentesis Recent history of throat cancer status post radiation therapy completed on 05/31/2018 Acute urinary tract infection. Failed outpatient therapy History of lung cancer status post right partial lung resection History of brain aneurysm status post angioplasty Hypertension Hyperlipidemia GERD History of [place] Anxiety and panic disorder Nicotine addiction/current some day smoker Obesity with BMI 31.9 Hospital course:Patient is a 52-year-old female with a known history of lung cancer status post right lower lobe resection, recently diagnosed with throat cancer status post radiation therapy completed on 05/31/2018, hypertension, hyperlipidemia, GERD and also history of brain aneurysm status post angioplasty came to ER with complaints of abdominal pain mainly upper abdomen and right upper back. Patient has been having pain for the past 2 weeks which is a dull aching pain. Pain gets worse with lying down on the side. No associated fever or chills. Patient is being treated for urinary tract infection with nitrofurantoin as an outpatient. Denied any chest pain or shortness of breath. Patient has not been eating very well since radiation therapy. Patient felt very weak and decreased appetite. No nausea vomiting or diarrhea. No headache or dizziness or lightheadedness. CT of the abdomen pelvis showed findings felt to reflect Ovarian carcinoma with omental caking and peritoneal seeding. There are metastatic lesions to the live r as well as small nodules in both lung bases. Large amount of ascites is noted. Plan neoplasm of other etiologies not excluded. 07/26/2018 complains of right side mid abdominal pain, controlled with Toradol during the day and morphine at night. Complains of sense of taste, altered- everything tastes like metal. Diet intake, fair, but does well with ensure supplements. Scheduled for paracentesis with tissue biopsy, liver biopsy, tomorrow. Mild tachycardia. Denies chest pain, palpitations or increasing shortness of breath. 07/27/2018 no overnight events. Tachycardia resolved. Scheduled for paracentesis today with liver biopsy on Monday. Patient to be discharged home in a stable condition with guarded prognosis pending paracentesis, clearance and final DC recommendations from oncology. Plavix and aspirin on hold secondary to upcoming liver biopsy. Exam General: Alert and oriented 3, no acute distress CHEST EXAMINATION: Lung cano clear to auscultation and percussion with bilateral lower lobes diminished. CARDIAC: Normal S1, S2 with no gallops. No murmurs. ABDOMEN: Soft. Distended. Mild right upper quadrant tenderness with deep palpation.Positive ascites. Bowel sounds normal. No guarding. No rigidity. Neurologically No focal deficits noted The impression and plan of care has been dictated as directed. : I performed a history and examination of this patient, discussed the same with the dictator. I agree with the dictator's note ,documented as a scribe. Any additional findings or plans will be noted. Time taken: 35 minutes Patient Condition at Discharge: Stable Plan - Discharge Summary New Discharge Prescriptions: New Cefuroxime Axetil [Ceftin] 500 mg PO BID 3 Days #6 tab Famotidine [Pepcid] 20 mg PO BID #60 tablet Continue Metoprolol Tartrate [Lopressor] 50 mg PO BID Atorvastatin [Lipitor] 80 mg PO DAILY oxyCODONE-APAP 10-325MG [Percocet 10-325 mg] 1 tab PO QID PRN PRN Reason: Pain Morphine Sulfate ER [Ms Contin] 15 mg PO Q12HR Ondansetron Odt [Zofran ODT] 4 mg PO Q8HR PRN #10 tab PRN Reason: Nausea Discontinued Losartan Potassium [Cozaar] 100 mg PO DAILY Aspirin 81 mg PO DAILY Clopidogrel [Plavix] 75 mg PO DAILY amLODIPine [Norvasc] 10 mg PO DAILY Nitrofurantoin Monohyd/M-Cryst [Macrobid] 100 mg PO Q12HR #20 cap Discharge Medication List Atorvastatin [Lipitor] 80 mg PO DAILY 10/21/13 [History] Metoprolol Tartrate [Lopressor] 50 mg PO BID 10/21/13 [History] Morphine Sulfate ER [Ms Contin] 15 mg PO Q12HR 07/21/18 [History] Ondansetron Odt [Zofran ODT] 4 mg PO Q8HR PRN #10 tab 07/21/18 [Rx] oxyCODONE-APAP 10-325MG [Percocet 10-325 mg] 1 tab PO QID PRN 07/21/18 [History] Cefuroxime Axetil [Ceftin] 500 mg PO BID 3 Days #6 tab 07/27/18 [Rx] Famotidine [Pepcid] 20 mg PO BID #60 tablet 07/27/18 [Rx] Follow up Appointment(s)/Referral(s): Miguel Fatima MD [STAFF PHYSICIAN] - 08/07/18 9:00 am ([facility]) Latisha Ziegler MD [Primary Care Provider] - 08/02/18 9:15 am Patient Instructions/Handouts: Cefuroxime (By mouth), Ascites (DC), Paracentesis (DC) Activity/Diet/Wound Care/Special Instructions: Aspirin and Plavix on hold, liver biopsy Monday.
[2018-07-27 19:16] LABS: Appearance,BF Hazy
[2018-07-27 19:22] LABS: Mononuclear WBC,Body Fluid 96 %; Polynuclear WBC,Body Fluid 4 %; Total Cells Counted,Body Fluid 100
[2018-07-28 00:49] LABS: Total Protein, Body Fluid 3400 mg/dL
[2018-07-29 13:51] LABS: Nucleated Cells, Body Fluid 60 /uL
[2018-07-30 10:11] LABS: RBC, Body Fluid 270 /uL
== END 2018-07-27 16:50 | disposition home or self-care (01) | DRG 755 ==
LOC: EC 13:10 → 3NMEDONC 17:58
PROVIDERS: ADMIT Internal Medicine; ATTEND Internal Medicine
PROC: 0W9G3ZZ Drainage of Peritoneal Cavity, Percutaneous Approach (ICD-10-PCS; principal; 2018-07-27)
DX: C56.9 Malignant neoplasm of unspecified ovary (principal); R18.0 Malignant ascites; C78.7 Secondary malignant neoplasm of liver and intrahepatic bile duct; R18.8 Other ascites; C78.02 Secondary malignant neoplasm of left lung; C78.01 Secondary malignant neoplasm of right lung; N39.0 Urinary tract infection, site not specified; I25.2 Old myocardial infarction; I10 Essential (primary) hypertension; E78.5 Hyperlipidemia, unspecified; K21.9 Gastro-esophageal reflux disease without esophagitis; G56.01 Carpal tunnel syndrome, right upper limb; F41.0 Panic disorder [episodic paroxysmal anxiety]; F17.200 Nicotine dependence, unspecified, uncomplicated; E66.9 Obesity, unspecified; R00.0 Tachycardia, unspecified; Z68.31 Body mass index [BMI] 31.0-31.9, adult; Z79.02 Long term (current) use of antithrombotics/antiplatelets; Z79.82 Long term (current) use of aspirin; Z79.899 Other long term (current) drug therapy; Z92.21 Personal history of antineoplastic chemotherapy; Z85.118 Personal history of other malignant neoplasm of bronchus and lung; Z85.819 Personal history of malignant neoplasm of unspecified site of lip, oral cavity, and pharynx; Z92.3 Personal history of irradiation; Z90.2 Acquired absence of lung [part of]; Z88.0 Allergy status to penicillin; Z80.9 Family history of malignant neoplasm, unspecified
CPT/HCPCS: 36415; 49083; 74177; 76705; 80053; 81001; 82150; 82378; 82945; 83615; 83690; 84157; 85025; 85610; 86300; 86304; 87070; 87075; 87102; 87205; 89050; 96361; 96374; 99285

== ENCOUNTER 2018-07-29 19:46 | Inpatient (IN) | payer OTHER ==
--- NOTE | 2018-07-29 20:07 | ED ---
SOB HPI - General Chief Complaint: Shortness of Breath Stated Complaint: Abd pain/SOB Time Seen by Provider: 07/29/18 19:55 Source: patient, RN notes reviewed, old records reviewed Mode of arrival: ambulatory Limitations: no limitations - History of Present Illness Initial Comments: This is a 52-year-old female the ER for evaluation. Patient resents today for evaluation with shortness of breath. Tachycardia. Heart palpitations. Dehydration not feeling well. Patient was recently admitted to the hospital for new onset liver disease with ascites and cirrhosis. Patient did have paracentesis here in the hospital, scheduled for further testing. Patient was ready to go home but since she's been home and feeling worse with increasing shortness of breath increasing weakness. Patient denies fever cough or congestion MD Complaint: shortness of breath, anxiety -: days(s) Severity: moderate Severity scale (1-10): 7 Consistency: constant Improves With: nothing Worsens With: nothing Context: recent URI Associated Symptoms: chest pain, cough Treatments Prior to Arrival: none - Related Data Home Medications Medication Instructions Recorded Confirmed Atorvastatin [Lipitor] 80 mg PO DAILY 10/21/13 07/29/18 Metoprolol Tartrate [Lopressor] 50 mg PO BID 10/21/13 07/29/18 Morphine Sulfate ER [Ms Contin] 15 mg PO Q12HR 07/21/18 07/29/18 Aspirin [[place] Aspirin EC] 81 mg PO DAILY 07/29/18 07/29/18 Clopidogrel Bisulfate [Plavix] 75 mg PO DAILY 07/29/18 07/29/18 Losartan Potassium 100 mg PO DAILY 07/29/18 07/29/18 oxyCODONE-APAP 10-325MG [Percocet 1 tab PO Q4HR PRN 07/29/18 07/29/18 10-325 mg] Previous Rx's Medication Instructions Recorded Ondansetron Odt [Zofran ODT] 4 mg PO Q8HR PRN #10 tab 07/21/18 Cefuroxime Axetil [Ceftin] 500 mg PO BID 3 Days #6 tab 07/27/18 Famotidine [Pepcid] 20 mg PO BID #60 tablet 07/27/18 Allergies Allergy/AdvReac Type Severity Reaction Status Date / Time Penicillins Allergy Unknown Verified 07/29/18 21:22 Childhood Review of Systems ROS Statement: Those systems with pertinent positive or pertinent negative responses have been documented in the HPI. ROS Other: All systems not noted in ROS Statement are negative. Past Medical History Past Medical History: Cancer, GERD/Reflux, Hyperlipidemia, Hypertension, Myoca rdial Infarction ([place]) Additional Past Medical History / Comment(s): BRAIN ANEURSYM, LUNG CA, CARPAL TUNNEL RIGHT WRIST, throat CA dx apr 2018 Last Myocardial Infarction Date:: 04/30/2013 History of Any Multi-Drug Resistant Organisms: None Reported Past Surgical History: Heart Catheterization, Orthopedic Surgery, Tubal Ligation, Uterine Ablation Additional Past Surgical History / Comment(s): ANGIOPLASTY FOR BRAIN ANEURSYM, CARPEL TUNNEL RIGHT WRIST , and laparoscopy, PARTIAL RIGHT LUNG REMOVAL ,PTCA, Past Anesthesia/Blood Transfusion Reactions: No Reported Reaction Past Psychological History: Anxiety, Panic Disorder Smoking Status: Current some day smoker Past Alcohol Use History: None Reported Past Drug Use History: None Reported - Past Family History Mother Family Medical History: Cancer Father Family Medical History: Cancer General Exam Limitations: no limitations General appearance: alert, in no apparent distress Head exam: Present: atraumatic, normocephalic, normal inspection Eye exam: Present: normal appearance, PERRL, EOMI. Absent: scleral icterus, conjunctival injection, periorbital swelling ENT exam: Present: normal exam, mucous membranes moist Neck exam: Present: normal inspection. Absent: tenderness, meningismus, lymphadenopathy Respiratory exam: Present: normal lung sounds bilaterally. Absent: respiratory distress, wheezes, rales, rhonchi, stridor Cardiovascular Exam: Present: normal rhythm, tachycardia, normal heart sounds. Absent: systolic murmur, diastolic murmur, rubs, gallop, clicks GI/Abdominal exam: Present: soft, normal bowel sounds. Absent: distended, tenderness, guarding, rebound, rigid Extremities exam: Present: normal inspection, full ROM, normal capillary refill. Absent: tenderness, pedal edema, joint swelling, calf tenderness Back exam: Present: normal inspection Neurological exam: Present: alert, oriented X3, CN II-XII intact Psychiatric exam: Present: normal affect, normal mood Skin exam: Present: warm, dry, intact, normal color. Absent: rash Course Vital Signs 07/29/18 07/29/18 07/29/18 19:48 19:52 20:30 Temperature 98.7 F Pulse Rate 153 H 147 H 140 H Respiratory 24 20 20 Rate Blood Pressure 72/57 103/64 125/76 O2 Sat by Pulse 95 95 Oximetry 07/29/18 07/29/18 07/29/18 20:50 20:55 21:02 Temperature Pulse Rate 138 H 135 H 136 H Respiratory 18 16 16 Rate Blood Pressure 101/69 O2 Sat by Pulse 99 Oximetry 07/29/18 21:59 Temperature Pulse Rate 122 H Respiratory 20 Rate Blood Pressure 93/27 O2 Sat by Pulse 97 Oximetry - Reevaluation(s) Reevaluation #1: 07/29/18 21:07 Medical record is reviewed Reevaluation #2: 07/29/18 21:08 Heart rate is improved with hydration - Consultations Consultation #1: Spoke with Dr. Koehler who is okay for admission Medical Decision Making - Medical Decision Making 52-year-old female the ER for evaluation significant shortness of breath dehydration and tachycardia. Patient will be admitted - Lab Data Result diagrams: 07/30/18 12:48 07/30/18 12:48 Lab Results 07/29/18 07/29/18 07/29/18 Range/Units 20:12 20:12 20:12 WBC 18.2 H (3.8-10.6) k/uL RBC 4.98 (3.80-5.40) m/uL Hgb 13.9 (11.4-16.0) gm/dL Hct 42.7 (34.0-46.0) % MCV 85.8 (80.0-100.0) fL MCH 28.0 (25.0-35.0) pg MCHC 32.6 (31.0-37.0) g/dL RDW 14.4 (11.5-15.5) % Plt Count 263 (150-450) k/uL Neutrophils % 85 % Lymphocytes % 4 % Monocytes % 9 % Eosinophils % 1 % Basophils % 0 % Neutrophils # 15.5 H (1.3-7.7) k/uL Lymphocytes # 0.8 L (1.0-4.8) k/uL Monocytes # 1.6 H (0-1.0) k/uL Eosinophils # 0.1 (0-0.7) k/uL Basophils # 0.0 (0-0.2) k/uL PT (9.0-12.0) sec INR (<1.2) APTT (22.0-30.0) sec Sodium 133 L (137-145) mmol/L Potassium 4.8 (3.5-5.1) mmol/L Chloride 106 (98-107) mmol/L Carbon Dioxide 20 L (22-30) mmol/L Anion Gap 7 mmol/L BUN 16 (7-17) mg/dL Creatinine 1.22 H (0.52-1.04) mg/dL Est GFR (CKD-EPI)AfAm 60 (>60 ml/min/1.73 sqM) Est GFR (CKD-EPI)NonAf 52 (>60 ml/min/1.73 sqM) Glucose 117 H (74-99) mg/dL Calcium 8.5 (8.4-10.2) mg/dL Magnesium 1.7 (1.6-2.3) mg/dL Total Bilirubin 0.8 (0.2-1.3) mg/dL AST 38 H (14-36) U/L ALT 34 (9-52) U/L Alkaline Phosphatase 69 (38-126) U/L Troponin I (0.000-0.034) ng/mL NT-Pro-B Natriuret Pep 278 pg/mL Total Protein 4.9 L (6.3-8.2) g/dL Albumin 2.3 L (3.5-5.0) g/dL 07/29/18 07/29/18 Range/Units 20:12 20:12 WBC (3.8-10.6) k/uL RBC (3.80-5.40) m/uL Hgb (11.4-16.0) gm/dL Hct (34.0-46.0) % MCV (80.0-100.0) fL MCH (25.0-35.0) pg MCHC (31.0-37.0) g/dL RDW (11.5-15.5) % Plt Count (150-450) k/uL Neutrophils % % Lymphocytes % % Monocytes % % Eosinophils % % Basophils % % Neutrophils # (1.3-7.7) k/uL Lymphocytes # (1.0-4.8) k/uL Monocytes # (0-1.0) k/uL Eosinophils # (0-0.7) k/uL Basophils # (0-0.2) k/uL PT 12.6 H (9.0-12.0) sec INR 1.2 H (<1.2) APTT 28.3 (22.0-30.0) sec Sodium (137-145) mmol/L Potassium (3.5-5.1) mmol/L Chloride (98-107) mmol/L Carbon Dioxide (22-30) mmol/L Anion Gap mmol/L BUN (7-17) mg/dL Creatinine (0.52-1.04) mg/dL Est GFR (CKD-EPI)AfAm (>60 ml/min/1.73 sqM) Est GFR (CKD-EPI)NonAf (>60 ml/min/1.73 sqM) Glucose (74-99) mg/dL Calcium (8.4-10.2) mg/dL Magnesium (1.6-2.3) mg/dL Total Bilirubin (0.2-1.3) mg/dL AST (14-36) U/L ALT (9-52) U/L Alkaline Phosphatase (38-126) U/L Troponin I <0.012 (0.000-0.034) ng/mL NT-Pro-B Natriuret Pep pg/mL Total Protein (6.3-8.2) g/dL Albumin (3.5-5.0) g/dL - EKG Data -: EKG Interpreted by Me (EKG shows sinus tachycardia rate of 40, AR 1:30, QRS 72, QTc 442) - Radiology Data Radiology results: report reviewed (CT a chest is negative for PE), image reviewed Disposition Clinical Impression: Dehydration, Tachycardia Disposition: ADMITTED IP TO THIS HOSP Condition: Fair Is patient prescribed a controlled substance at d/c from ED?: No
[2018-07-29] MEDS ORDERED: SODIUM CHLORIDE 0.9% 1,000 ML IV STA ×3 (20:30→21:09)
[2018-07-29] MEDS ORDERED: IPRATROPIUM-ALBUTEROL 3 ML NEB INHALATION STA (20:30)
[2018-07-29 20:53] LABS: Basophils % (A) 0 %; Eosinophils # (A) 0.1 k/uL (0-0.7); Eosinophils % (A) 1 %; HCT 42.7 % (34.0-46.0); HGB 13.9 gm/dL (11.4-16.0); Lymphocytes # (A) 0.8 k/uL (1.0-4.8); Lymphocytes % (A) 4 %; MCHC 32.6 g/dL (31.0-37.0); MCV 85.8 fL (80.0-100.0); Mean Platelet Volume 9.8; Monocytes # (A) 1.6 k/uL (0-1.0); Monocytes % (A) 9 %; Neutrophils # (A) 15.5 k/uL (1.3-7.7); Neutrophils % (A) 85 %; Platelet Count 263 k/uL (150-450); RBC 4.98 m/uL (3.80-5.40); RDW 14.4 % (11.5-15.5); WBC 18.2 k/uL (3.8-10.6)
[2018-07-29 21:01] LABS: INR 1.2 (<1.2); Partial Thromboplastin Time 28.3 sec (22.0-30.0); Prothrombin Time 12.6 sec (9.0-12.0)
--- NOTE | 2018-07-29 21:06 | XR ---
EXAMINATION TYPE: XR chest 2V DATE OF EXAM: 07/29/2018 COMPARISON: 07/21/2018 HISTORY: Short of breath TECHNIQUE: Frontal and lateral views of the chest are obtained. FINDINGS: There is no heart failure nor confluent pneumonic infiltrate. Costophrenic angles are kathryn r. Heart size is normal. There are chest leads. There is slight blunting of the costophrenic angles. IMPRESSION: Mild pleural reaction at the lung bases similar to old exam. No heart failure. Normal he art.
[2018-07-29 21:09] LABS: Albumin 2.3 g/dL (3.5-5.0); Calcium 8.5 mg/dL (8.4-10.2); Magnesium 1.7 mg/dL (1.6-2.3); Potassium 4.8 mmol/L (3.5-5.1); Total Bilirubin 0.8 mg/dL (0.2-1.3); Total Protein 4.9 g/dL (6.3-8.2)
[2018-07-29] MEDS ORDERED: IBUPROFEN ORAL SUSP 100 MG/5 ML CUP PO ONE (21:09)
[2018-07-29] MEDS ORDERED: SODIUM CHLORIDE 0.9% 500 ML 500 ML IV STA (21:09)
[2018-07-29] MEDS ORDERED: ACETAMINOPHEN IV (For NPO) 1,000 MG in EMPTY BAG 1 BAG IVPB STA (21:09)
--- NOTE | 2018-07-29 21:58 | CT ---
EXAMINATION TYPE: CT angio chest DATE OF EXAM: 07/29/2018 9:35 PM COMPARISON: None HISTORY: chest pain, hx of lung and throat ca CT DLP: 347 mGycm Automated exposure control for dose reduction was used. CONTRAST: CTA scan of the thorax is performed with IV Contrast, patient injected with 63cc mL of Isovue 370, pu lmonary embolism protocol. There are 3-D post processed images.. FINDINGS: There is some coarse interstitial density in the lungs. There is mild pulmonary emphysema. There is s ome linear density at the lung bases consistent with subsegmental atelectasis. There is mild pericard ial effusion. There is abdominal ascites. There is normal contrast opacification of the pulmonary arteries. I see no filling defect. There is n o evidence of thoracic aortic aneurysm or dissection. There is no mediastinal adenopathy. The bony th orax appears intact. There is 2 cm hypodense area in the anterior right lobe of the liver. There are hypodense areas in the inferior lateral right lobe of the liver. This could relate to metastatic dise ase. IMPRESSION: NO EVIDENCE OF PULMONARY EMBOLISM. INTERSTITIAL FIBROTIC CHANGES. COPD. ABDOMINAL ASCITES. Liver find ings as above.
[2018-07-29] MEDS ORDERED: oxyCODONE-APAP 10-325MG 1 EACH TAB PO PRN (22:40)
[2018-07-29] MEDS ORDERED: ONDANSETRON ODT 4 MG TAB PO PRN (22:40)
[2018-07-29] MEDS ORDERED: MORPHINE SULFATE ER 15 MG TABLET PO PRN (22:40)
[2018-07-29] MEDS ORDERED: OSELTAMIVIR 75 MG CAP PO SCH (22:45)
[2018-07-30] MEDS ORDERED: CEFDINIR 300 MG CAP PO SCH (09:00)
[2018-07-30] MEDS ORDERED: ASPIRIN 81 MG PO SCH (09:00)
[2018-07-30] MEDS ORDERED: CLOPIDOGREL 75 MG TAB PO SCH (09:00)
[2018-07-30] MEDS: OSELTAMIVIR 60 MG/10 ML ORAL SYRINGE PO SCH ×2 (09:37→21:31)
[2018-07-30] MEDS: LOSARTAN 50 MG TAB PO SCH (09:37)
[2018-07-30] MEDS: METOPROLOL TARTRATE 50 MG TAB PO SCH ×2 (09:37→21:27)
[2018-07-30] MEDS: ATORVASTATIN 80 MG TAB PO SCH (09:37)
[2018-07-30] MEDS: FAMOTIDINE 20 MG TAB PO SCH ×2 (09:38→21:31)
[2018-07-30] MEDS: IBUPROFEN 800 MG TAB PO PRN (09:47)
[2018-07-30 11:09] VITALS: BMI 31.8
[2018-07-30] MEDS ORDERED: ALPRAZolam 0.25 MG TAB PO PRN (11:14)
[2018-07-30 13:02] LABS: Basophils % (A) 0 %; Eosinophils # (A) 0.2 k/uL (0-0.7); Eosinophils % (A) 1 %; HCT 39.6 % (34.0-46.0); HGB 12.8 gm/dL (11.4-16.0); Lymphocytes # (A) 0.6 k/uL (1.0-4.8); Lymphocytes % (A) 3 %; MCH 28.3 pg (25.0-35.0); MCHC 32.3 g/dL (31.0-37.0); MCV 87.4 fL (80.0-100.0); Mean Platelet Volume 9.5; Monocytes # (A) 0.9 k/uL (0-1.0); Monocytes % (A) 5 %; Neutrophils # (A) 16.5 k/uL (1.3-7.7); Neutrophils % (A) 90 %; Platelet Count 254 k/uL (150-450); RBC 4.54 m/uL (3.80-5.40); RDW 14.8 % (11.5-15.5); WBC 18.3 k/uL (3.8-10.6)
[2018-07-30 13:20] LABS: Calcium 7.9 mg/dL (8.4-10.2)
--- NOTE | 2018-07-30 14:05 | P.CONS ---
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 A CT of the chest confirmed a 2.4 x 2 x 2.8 cm mass, with no enlarged nodes. 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 Per the pt, the tumor was " very small". An Oncology f/u was advised, but she went to [place], and came for her 1st OV only on 10/21/15. She does have a longstanding h/o smoking. Her path report was received after her 1st visit, and revealed a T2a ( 4cm) N0 ( 0/3) adenocarcinoma. Based on the size and small number of nodes, adjuvant chemo with Cisplatin and Alimta was recommended. The pt was initially agreeable. However, she did not f/u subsequently. She spent the winter of 2015- in [place], and did have some oncology surveillance, with a PET in 07/29, that was negative per her. She was referred back by her PCP, and seen on 09/08/16. She stated that she did not come back to the office in 2015 as she was " scared of the chemo" on thinking further, and decided not to go through with it. The PET result was subsequently obtained, and showed non specific uptake with borderline size in mediastinal, axillary and inguinal nodes. Incidentally a 2 cm nodule with mild uptake was seen in the rt breast. The pt had a mammogram in 11/28 which was negative. She did not keep her appts in 12/29 or 06/01. She did have a PET in 03/31 which was negative other than some cutaneous uptake in the rt shoulder area ( the pt has a long standing h/o h idraadenitis) She was referred back by her PCP again to reestablish f/u, and seen on 01/30/18. She had been having hoarseness since early 12/30 and was evaluated by ENT, with inflammation and polyps found per the pt. 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 Recently seen in office and complained of sore throat and persistent fatigue. She was recently admitted and discharged 72 hours ago. 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 There are metastatic lesions to the liver as well as small nodules in both lung bases. Large amount of ascites is noted. we will need tissue diagnosis will start with paracentesis. She was scheduled to have biopsy of liver lesion as outpatient although now presented back to emergency for heart palpitations, dehydration, shortness of nbreath and progressive weakness since she was home. Review of Systems A 14 point review of systems assessed and completed and all negative except HPI. Past Medical History Past Medical History: Cancer, GERD/Reflux, Hyperlipidemia, Hypertension, Myocardial Infarction ([place]) Additional Past Medical History / Comment(s): BRAIN ANEURSYM, LUNG CA, CARPAL TUNNEL RIGHT WRIST, throat CA dx apr 2018 Last Myocardial Infarction Date:: 04/30/2013 History of Any Multi-Drug Resistant Organisms: None Reported Past Surgical History: Heart Catheterization, Orthopedic Surgery, Tubal Liga tion, Uterine Ablation Additional Past Surgical History / Comment(s): ANGIOPLASTY FOR BRAIN ANEURSYM, CARPEL TUNNEL RIGHT WRIST , and laparoscopy, PARTIAL RIGHT LUNG REMOVAL ,PTCA, Past Anesthesia/Blood Transfusion Reactions: No Reported Reaction Past Psychological History: Anxiety, Panic Disorder Smoking Status: Current some day smoker Past Alcohol Use History: None Reported Additional Past Alcohol Use History / Comment(s): STARTED NSMOKING AT AGE 22 SMOKES up to 1/2PPD Past Drug Use History: None Reported - Past Family History Mother Family Medical History: Cancer Father Family Medical History: Cancer Medications and Allergies Home Medications Medication Instructions Recorded Confirmed Type Atorvastatin [Lipitor] 80 mg PO DAILY 10/21/13 07/29/18 History Metoprolol Tartrate [Lopressor] 50 mg PO BID 10/21/13 07/29/18 History Morphine Sulfate ER [Ms Contin] 15 mg PO Q12HR 07/21/18 07/29/18 History Ondansetron Odt [Zofran ODT] 4 mg PO Q8HR PRN #10 tab 07/21/18 07/29/18 Rx Cefuroxime Axetil [Ceftin] 500 mg PO BID 3 Days #6 tab 07/27/18 07/29/18 Rx Famotidine [Pepcid] 20 mg PO BID #60 tablet 07/27/18 07/29/18 Rx Aspirin [Blyn Aspirin EC] 81 mg PO DAILY 07/29/18 07/29/18 History Clopidogrel Bisulfate [Plavix] 75 mg PO DAILY 07/29/18 07/29/18 History Losartan Potassium 100 mg PO DAILY 07/29/18 07/29/18 History oxyCODONE-APAP 10-325MG [Percocet 1 tab PO Q4HR PRN 07/29/18 07/29/18 History 10-325 mg] Allergies Allergy/AdvReac Type Severity Reaction Status Date / Time Penicillins Allergy Unknown Verified 07/29/18 21:22 Childhood Physical Exam Vitals: Vital Signs Temp Pulse Pulse Resp BP BP Pulse Ox 07/30/18 11:08 99.1 F 96 24 81/53 94 L 07/30/18 08:00 99.8 F H 119 H 20 96/57 92 L 07/30/18 04:43 98.1 F 120 H 21 117/57 95 07/29/18 23:30 99.2 F 105 H 18 104/64 91 L 07/29/18 22:32 99.3 F 123 H 24 98/54 94 L 07/29/18 21:59 122 H 20 93/27 97 07/29/18 21:02 136 H 16 07/29/18 20:55 135 H 16 07/29/18 20:50 138 H 18 101/69 99 07/29/18 20:30 140 H 20 125/76 07/29/18 19:52 147 H 20 103/64 95 07/29/18 19:48 98.7 F 153 H 24 72/57 95 Intake and Output 07/29/18 07/30/18 07/30/18 22:59 06:59 14:59 Intake Total 200 520 Balance 200 520 Intake: Intake, IV Titration 200 100 Amount Sodium Chloride 0.9% 1, 200 000 ml @ 100 mls/hr IV . Q10H STA Rx#:[id number] Sodium Chloride 0.9% 1, 100 000 ml @ 999 mls/hr IV . Q1H1M STA Rx#:[id number] Oral 420 Other: Voiding Method Toilet Toilet # Voids 1 Weight 81.647 kg 81.6 kg 81.6 kg en: Alert no acute distress Head NCNT Mouth: dry no thrush Lungs: No increased effort bilateral bases diminished Heart: Tachy, Regular Abdomen: Distended, Firm ascites Extremities: Mild BLE Edema Neuro: No sensory or motor deficits Results CBC & Chem 7: 07/30/18 12:48 07/30/18 12:48 Labs: Abnormal Lab Results - Last 24 Hours (Table) 07/29/18 07/29/18 07/29/18 Range/Units 20:12 20:12 20:12 WBC 18.2 H (3.8-10.6) k/uL Neutrophils # 15.5 H (1.3-7.7) k/uL Lymphocytes # 0.8 L (1.0-4.8) k/uL Monocytes # 1.6 H (0-1.0) k/uL PT 12.6 H (9.0-12.0) sec INR 1.2 H (<1.2) Sodium 133 L (137-145) mmol/L Chloride (98-107) mmol/L Carbon Dioxide 20 L (22-30) mmol/L Creatinine 1.22 H (0.52-1.04) mg/dL Glucose 117 H (74-99) mg/dL Calcium (8.4-10.2) mg/dL AST 38 H (14-36) U/L Total Protein 4.9 L (6.3-8.2) g/dL Albumin 2.3 L (3.5-5.0) g/dL Influenza Type A RNA (Not Detectd) 07/29/18 07/30/18 07/30/18 Range/Units 21:17 12:48 12:48 WBC 18.3 H (3.8-10.6) k/uL Neutrophils # 16.5 H (1.3-7.7) k/uL Lymphocytes # 0.6 L (1.0-4.8) k/uL Monocytes # (0-1.0) k/uL PT (9.0-12.0) sec INR (<1.2) Sodium (137-145) mmol/L Chloride 114 H (98-107) mmol/L Carbon Dioxide 18 L (22-30) mmol/L Creatinine (0.52-1.04) mg/dL Glucose (74-99) mg/dL Calcium 7.9 L (8.4-10.2) mg/dL AST (14-36) U/L Total Protein (6.3-8.2) g/dL Albumin (3.5-5.0) g/dL Influenza Type A RNA Detected H (Not Detectd) Assessment and Plan Plan: Assessment and Recs: 1. Abdominal Ascites: Concern for new underlying malignancy on CT - Paracentesis today - Tumor markers reviewed, likely malignancy consistent with Ovarian origin, will need cytology or tissue cell confirmation, will plan paracentesis to obtain this. - Status post 5.9L off on 07/27/18 awaiting Cytology results 2. New Right solid Ovarian Mass - Concerning for underlying Malignancy: - Approx 3.4x3.1cm 3. Small Newly Noted Hepatic Lesions: - Approx 8-10 mentioned on Imaging with average size 1-1.5cm, will as IR to obtain biopsy of liver lesion as well during ascites sampling to assess for two primary sites and to identifity the primary of the metastatic appearing melignancy in liver as unknown with her complicated cancer history - Discussed with IR last admission, with PLavix being taken on Monday07/23/18 biopsy was rescheduled as an outpatient although now re-admitted, new consult placed for biopsy as inpatient 4. HX: NSCLA 5. Hx: Early Stage Larygneal Carcinoma Anticoagulation to remain on hold and await Interventional radiology regarding liver biopsy Physician Attestation: I have completed the full history and physical and developed the completed assessment and plan agree with above dictated as a scribe,.
[2018-07-30] MEDS ORDERED: SODIUM CHLORIDE 0.9% 500 ML 500 ML IV ONE ×2 (15:06→18:29)
[2018-07-30] MEDS: HYDROcodone/APAP 5-325MG 1 EACH TAB PO PRN (21:31)
--- NOTE | 2018-07-30 23:41 | P.HPIM ---
History of Present Illness H&P Date: 07/30/18 Chief Complaint: Shortness of breath Hospital course:Patient is a 52-year-old female with a known history of lung cancer status post right lower lobe resection, recently diagnosed with throat cancer status post radiation therapy completed on 05/31/2018, hypertension, hyperlipidemia, GERD and also history of brain aneurysm status post angioplasty, recent paracentesis due to suspected ovarian cancer, cytology pending came to ER with complaints of shortness of breath. Patient is also having heart beating of fast. Patient was seen in the oncology clinic recently. Patient has been having sore throat for about 3-4 days. T-max is 99.8 on admission. Patient otherwise denied any complaints of chest pain. Patient was recently admitted to the hospital with abdominal pain and distention. Suspected ovarian cancer/malignancy and underwent paracentesis. Patient also has liver nodules are/mass. Cytology report is pending at this time. Patient is scheduled for liver biopsy by oncology.. Patient felt very weak and decreased appetite. No nausea vomiting or diarrhea. No headache or dizziness or lightheadedness. 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 There are metastatic lesi ons to the liver as well as small nodules in both lung bases. Large amount of ascites is noted. Plan neoplasm of other etiologies not excluded. WBC 18.3, influenza area positive. CTA showed no evidence of pulmonary embolism. Interstitial fibrotic changes. COPD. Abdominal ascites. Chest x-ray showed mild pleural reaction in the lung base similar to old exam. No heart failure. Review of Systems Constitutional: Subjective fevers and chills. . No generalized weakness or weight loss. Abdomen: Patient denied nausea vomiting and diarrhea and abdominal pain. Cardiovascular: Patient denies any chest pain or short of breath no palpitations. Respiratory: Cough congestion and without sputum production. Patient does have shortness of breath Neurologic: Patient denied any numbness or tingling headache. Musculoskeletal: Patient denies any complaints of joint swelling or deformity. Skin: Negative Psychiatric: Negative Endocrine: No heat or cold intolerance. No recent weight gain. Genitourinary: No dysuria or hematuria. All other 14 point ROS negative except the above Past Medical History Past Medical History: Cancer, GERD/Reflux, Hyperlipidemia, Hypertension, Myocardial Infarction ([place]) Additional Past Medical History / Comment(s): BRAIN ANEURSYM, LUNG CA, CARPAL TUNNEL RIGHT WRIST, throat CA dx apr 2018 Last Myocardial Infarction Date:: 04/30/2013 History of Any Multi-Drug Resistant Organisms: None Reported Past Surgical History: Heart Catheterization, Orthopedic Surgery, Tubal Lig ation, Uterine Ablation Additional Past Surgical History / Comment(s): ANGIOPLASTY FOR BRAIN ANEURSYM, CARPEL TUNNEL RIGHT WRIST , and laparoscopy, PARTIAL RIGHT LUNG REMOVAL ,PTCA, Past Anesthesia/Blood Transfusion Reactions: No Reported Reaction Past Psychological History: Anxiety, Panic Disorder Smoking Status: Current some day smoker Past Alcohol Use History: None Reported Additional Past Alcohol Use History / Comment(s): STARTED NSMOKING AT AGE 22 SMOKES up to 1/2PPD Past Drug Use History: None Reported - Past Family History Mother Family Medical History: Cancer Father Family Medical History: Cancer Medications and Allergies Home Medications Medication Instructions Recorded Confirmed Type Atorvastatin [Lipitor] 80 mg PO DAILY 10/21/13 07/29/18 History Metoprolol Tartrate [Lopressor] 50 mg PO BID 10/21/13 07/29/18 History Morphine Sulfate ER [Ms Contin] 15 mg PO Q12HR 07/21/18 07/29/18 History Ondansetron Odt [Zofran ODT] 4 mg PO Q8HR PRN #10 tab 07/21/18 07/29/18 Rx Cefuroxime Axetil [Ceftin] 500 mg PO BID 3 Days #6 tab 07/27/18 07/29/18 Rx Famotidine [Pepcid] 20 mg PO BID #60 tablet 07/27/18 07/29/18 Rx Aspirin [Lyman Aspirin EC] 81 mg PO DAILY 07/29/18 07/29/18 History Clopidogrel Bisulfate [Plavix] 75 mg PO DAILY 07/29/18 07/29/18 History Losartan Potassium 100 mg PO DAILY 07/29/18 07/29/18 History oxyCODONE-APAP 10-325MG [Percocet 1 tab PO Q4HR PRN 07/29/18 07/29/18 History 10-325 mg] Allergies Allergy/AdvReac Type Severity Reaction Status Date / Time Penicillins Allergy Unknown Verified 07/29/18 21:22 Childhood Physical Exam Vitals: Vital Signs Temp Pulse Pulse Resp BP BP Pulse Ox 07/30/18 11:08 99.1 F 96 24 81/53 94 L 07/30/18 08:00 99.8 F H 119 H 20 96/57 92 L 07/30/18 04:43 98.1 F 120 H 21 117/57 95 07/29/18 23:30 99.2 F 105 H 18 104/64 91 L 07/29/18 22:32 99.3 F 123 H 24 98/54 94 L 07/29/18 21:59 122 H 20 93/27 97 07/29/18 21:02 136 H 16 07/29/18 20:55 135 H 16 07/29/18 20:50 138 H 18 101/69 99 07/29/18 20:30 140 H 20 125/76 07/29/18 19:52 147 H 20 103/64 95 07/29/18 19:48 98.7 F 153 H 24 72/57 95 Intake and Output 07/29/18 07/30/18 07/30/18 22:59 06:59 14:59 Intake Total 200 340 Balance 200 340 Intake: Intake, IV Titration 200 100 Amount Sodium Chloride 0.9% 1, 200 000 ml @ 100 mls/hr IV . Q10H STA Rx#:[id number] Sodium Chloride 0.9% 1, 100 000 ml @ 999 mls/hr IV . Q1H1M STA Rx#:[id number] Oral 240 Other: Voiding Method Toilet Toilet # Voids 1 Weight 81.647 kg 81.6 kg 81.6 kg PHYSICAL EXAMINATION: Patient is lying in the bed comfortably, no acute distress, awake alert and oriented.. HEENT: Normocephalic. Neck is supple. Pupils reactive. Nostrils clear. Oral cavity is moist. Ears reveal no drainage. Neck reveals no JVD, carotid bruits, or thyromegaly. CHEST EXAMINATION: Trachea is central. Symmetrical expansion. Scattered rhonchi. Lung cano clear to auscultation and percussion. CARDIAC: Normal S1, S2 with no gallops. No murmurs ABDOMEN: Soft. Distended with ascites. Bowel sounds normal. No organomegaly. No abdominal bruits. Extremities: reveal no edema. No clubbing or cyanosis Neurologically awake, alert, oriented x3 with well-coordinated movements. No focal deficits noted Skin: No rash or skin lesions. Psychiatric: Coperative. Nonsuicidal Musculoskeletal: No joint swelling or deformity. Normal range of motion. Results CBC & Chem 7: 07/30/18 12:48 07/30/18 12:48 Labs: Abnormal Lab Results - Last 24 Hours (Table) 07/29/18 07/29/18 07/29/18 Range/Units 20:12 20:12 20:12 WBC 18.2 H (3.8-10.6) k/uL Neutrophils # 15.5 H (1.3-7.7) k/uL Lymphocytes # 0.8 L (1.0-4.8) k/uL Monocytes # 1.6 H (0-1.0) k/uL PT 12.6 H (9.0-12.0) sec INR 1.2 H (<1.2) Sodium 133 L (137-145) mmol/L Carbon Dioxide 20 L (22-30) mmol/L Creatinine 1.22 H (0.52-1.04) mg/dL Glucose 117 H (74-99) mg/dL AST 38 H (14-36) U/L Total Protein 4.9 L (6.3-8.2) g/dL Albumin 2.3 L (3.5-5.0) g/dL Influenza Type A RNA (Not Detectd) 07/29/18 Range/Units 21:17 WBC (3.8-10.6) k/uL Neutrophils # (1.3-7.7) k/uL Lymphocytes # (1.0-4.8) k/uL Monocytes # (0-1.0) k/uL PT (9.0-12.0) sec INR (<1.2) Sodium (137-145) mmol/L Carbon Dioxide (22-30) mmol/L Creatinine (0.52-1.04) mg/dL Glucose (74-99) mg/dL AST (14-36) U/L Total Protein (6.3-8.2) g/dL Albumin (3.5-5.0) g/dL Influenza Type A RNA Detected H (Not Detectd) Thrombosis Risk Factor Assmnt - DVT/VTE Prophylaxis DVT/VTE Prophylaxis: Pharmacologic Prophylaxis ordered - Choose All That Apply Any of the Below Risk Factors Present?: Yes Each Factor Represents 1 point: Age 41-60 years, Obesity (BMI >25) Thrombosis Risk Factor Assessment Total Risk Factor Score: 2 Thrombosis Risk Factor Assessment Level: Low Risk Assessment and Plan Assessment: Acute influenza A infection. recent CT abdomen and pelvis with suspected ovarian carcinoma with metastatic lesions to peritoneum, liver and lower lungs. Liver biopsy is pending. Large ascites, status post paracentesis on 07/27/2018. Cytology is pending. Recent history of throat cancer status post radiation therapy completed on 05/31/2018 Recent urinary tract infection. Completed course with Ceftin. History of lung cancer status post right partial lung resection History of brain aneurysm status post angioplasty Hypertension Hyperlipidemia GERD History of [place] Anxiety and panic disorder Nicotine addiction/current some day smoker Obesity with BMI 31.9 Plan: Patient will be continued on gentle hydration. Tachycardia is improving. Continue with Tamiflu. Continue to hold aspirin Plavix due to scheduled liver biopsy. Oncology was consulted. Continue to follow closely and current management. Further recommendations based on the clinical course. Prognosis is guarded. Time with Patient: Greater than 30
[2018-07-31] MEDS: ATORVASTATIN 80 MG TAB PO SCH (09:13)
[2018-07-31] MEDS: OSELTAMIVIR 60 MG/10 ML ORAL SYRINGE PO SCH (09:14)
[2018-07-31] MEDS: METOPROLOL TARTRATE 50 MG TAB PO SCH ×2 (09:14→20:36)
[2018-07-31] MEDS: FAMOTIDINE 20 MG TAB PO SCH ×2 (09:14→20:36)
[2018-07-31] MEDS: LOSARTAN 50 MG TAB PO SCH (10:41)
--- NOTE | 2018-07-31 11:13 | P.PN ---
Subjective Progress Note Date: 07/31/18 Principal diagnosis: Metastatic Cancer, Acute Hypoxic Respiratory failure Plan for Ms. Krishna to have liver biopsy and paracentesis prior today with Interventional radiology. I did discuss with Dr. Ramachandran in IR. Under further review of CTA on 07/29/18 it appears there is a positive pulmonary embolism. We will proceed with paracentesis and biopsy this am and begin anticoagulation after. Objective - Vital Signs Vital signs: Vital Signs Temp 97.8 F 07/31/18 08:20 Pulse 115 H 07/31/18 08:20 Resp 20 07/31/18 08:20 BP 102/71 07/31/18 09:15 Pulse Ox 100 07/31/18 08:20 Intake & Output 07/30/18 07/31/18 07/31/18 18:59 06:59 18:59 Intake Total 1020 Balance 1020 Weight 81.6 kg 81.5 kg Intake: Intake, IV Titration 600 Amount Sodium Chloride 0.9% 1, 100 000 ml @ 999 mls/hr IV . Q1H1M STA Rx#:[id number] Sodium Chloride 0.9% 500 500 ml 500 ml @ 999 mls/hr IV .Q31M ONE Rx#:[id number] Oral 420 Other: Voiding Method Toilet # Voids 1 1 - Exam Gen: Alert no acute distress Head NCNT Mouth: dry no thrush Lungs: No increased effort bilateral bases diminished Heart: Tachy, Regular Abdomen: Distended, Firm ascites Extremities: Mild BLE Edema Neuro: No sensory or motor deficits - Labs CBC & Chem 7: 07/31/18 11:39 07/30/18 12:48 Labs: Abnormal Lab Results - Last 24 Hours (Table) 07/30/18 07/30/18 Range/Units 12:48 12:48 WBC 18.3 H (3.8-10.6) k/uL Neutrophils # 16.5 H (1.3-7.7) k/uL Lymphocytes # 0.6 L (1.0-4.8) k/uL Chloride 114 H (98-107) mmol/L Carbon Dioxide 18 L (22-30) mmol/L Calcium 7.9 L (8.4-10.2) mg/dL Assessment and Plan Plan: Assessment and Recs: 1. Abdominal Ascites: Concern for new underlying malignancy on CT - Paracentesis today prior to liver biopsy and will resend fluid for cytology, discussed with Dr. Ramachandran - Tumor markers reviewed, likely malignancy consistent with Ovarian origin, will need cytology or tissue cell confirmation, will plan paracentesis to obtain this. - Status post 5.9L off on 07/27/18 awaiting Cytology results 2. New Right solid Ovarian Mass - Concerning for underlying Malignancy: - Approx 3.4x3.1cm 3. Small Newly Noted Hepatic Lesions: - Approx 8-10 mentioned on Imaging with average size 1-1.5cm, will as IR to obtain biopsy of liver lesion as well during ascites sampling to assess for two primary sites and to identifity the primary of the metastatic appearing melignancy in liver as unknown with her complicated cancer history - Plan for biopsy today 4. HX: NSCLA 5. Hx: Early Stage Larygneal Carcinoma 6. New Acute Pulmonary Embolism - CTA original read no identified PE, discussed with IR today and appears to be presence of Pulmonary embolism. - Will begin Heparin drip after paracentesis and biopsy of liver this am. 7. Acute Hypoxic Respiratory Failure: - Remains Tachycardic, and requiring 2-3L of Nasal Canula - Likely secondary to increased abdominal ascites and new acute PE Physician Attestation: I have completed the full history and physical and developed the completed assessment and plan agree with above dictated as a scribe,. Addendum: Spoke to nursing and patient is refusing biopsy today as she is not feeling "up to it". RN discussed further with IR and will plan for tomorrow, will start heparin drip at this time and hold per IR recs for morning paracentesis and liver biopsy
[2018-07-31] MEDS: HEPARIN SOD,PORK IN 0.45% NACL 25,000 UNIT in 0.45% NACL 1 250ML.BAG IV SCH (11:50)
[2018-07-31 11:57] LABS: Basophils % (A) 0 %; Eosinophils # (A) 0.2 k/uL (0-0.7); Eosinophils % (A) 2 %; HGB 11.8 gm/dL (11.4-16.0); Hypochromasia Slight; Lymphocytes # (A) 0.5 k/uL (1.0-4.8); Lymphocytes % (A) 3 %; MCH 27.8 pg (25.0-35.0); MCHC 31.1 g/dL (31.0-37.0); MCV 89.5 fL (80.0-100.0); Mean Platelet Volume 8.8; Monocytes # (A) 0.9 k/uL (0-1.0); Monocytes % (A) 6 %; Neutrophils # (A) 13.3 k/uL (1.3-7.7); Neutrophils % (A) 88 %; Platelet Count 265 k/uL (150-450); RBC 4.25 m/uL (3.80-5.40); RDW 14.8 % (11.5-15.5); WBC 15.1 k/uL (3.8-10.6)
[2018-07-31 12:15] LABS: Prothrombin Time 10.3 sec (9.0-12.0)
[2018-07-31 12:42] LABS: Partial Thromboplastin Time 21.6 sec (22.0-30.0)
--- NOTE | 2018-07-31 13:45 | XR ---
EXAMINATION TYPE: XR chest 1V DATE OF EXAM: 07/31/2018 COMPARISON: 07/29/2018 HISTORY: Cough and congestion TECHNIQUE: Single frontal view of the chest is obtained. FINDINGS: Suboptimal visualization of the costophrenic angles and lower lungs relates to copious ove rlying soft tissues as seen on the prior. The frontal view is similar to the prior exam and on the la teral view of 07/29/2018 no pleural effusions were seen. There is no focal air space opacity, pleural effusion, or pneumothorax seen. The cardiac silhouette size is upper limits of normal. The osseous structures are intact. IMPRESSION: No acute cardiopulmonary process. Unchanged exam in comparison to the prior of 07/29/2018 .
[2018-07-31] MEDS ORDERED: HEPARIN SODIUM,PORCINE 10,000 UNIT/ML 1 ML VIAL IV ONE (14:13)
[2018-07-31] MEDS ORDERED: HEPARIN SODIUM,PORCINE 5,000 UNIT/ML 1 ML VIAL IV PRN (14:13)
[2018-07-31] MEDS: HYDROcodone/APAP 5-325MG 1 EACH TAB PO PRN ×2 (14:22→20:36)
[2018-07-31] MEDS: OSELTAMIVIR 75 MG CAP PO SCH (20:36)
--- NOTE | 2018-07-31 23:32 | P.PN ---
Subjective Progress Note Date: 07/31/18 Principal diagnosis: Acute influenza A infection Recurrent ascites due to suspected ovarian malignancy Hospital course:Patient is a 52-year-old female with a known history of lung cancer status post right lower lobe resection, recently diagnosed with throat cancer status post radiation therapy completed on 05/31/2018, hypertension, hyperlipidemia, GERD and also history of brain aneurysm status post angioplasty, recent paracentesis due to suspected ovarian cancer, cytology pending came to ER with complaints of shortness of breath. Patient is also having heart beating of fast. Patient was seen in the oncology clinic recently. Patient has been having sore throat for about 3-4 days. T-max is 99.8 on admission. Patient otherwise denied any complaints of chest pain. Patient was recently admitted to the hospital with abdominal pain and distention. Suspected ovarian cancer/malignancy and underwent paracentesis. Patient also has liver nodules are/mass. Cytology report is pending at this time. Patient is scheduled for liver biopsy by oncology.. Patient felt very weak and decreased appetite. No nausea vomiting or diarrhea. No headache or dizziness or lightheadedness. 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 There are metastatic lesions to the liver as well as small nodules in both lung bases. Large amount of ascites is noted. Plan neoplasm of other etiologies not excluded. WBC 18.3, influenza area positive. CTA showed no evidence of pulmonary embolism. Interstitial fibrotic changes. COPD. Abdominal ascites. Chest x-ray showed mild pleural reaction in the lung base similar to old exam. No heart failure. 07/31/2018 Patient says that she is not feeling well today. Patient is status post paracentesis. Does not want to have liver biopsy. No fever no chills. Patient does have some nausea. Under further review of CTA on 07/29/18 it appears there is a positive pulmonary embolism as per radiology.. Patient was started on anticoagulation with heparin drip. No headache or dizziness or lightheadedness. No chest pain or worsening shortness of breath. Current medications reviewed. Objective - Vital Signs Vital signs: Vital Signs Temp 98.9 F 07/31/18 20:25 Pulse 100 07/31/18 20:25 Resp 21 07/31/18 20:25 BP 103/68 07/31/18 20:25 Pulse Ox 99 07/31/18 20:25 Intake & Output 07/31/18 07/31/18 08/01/18 06:59 18:59 06:59 Intake Total 117.115 Balance 117.115 Weight 81.5 kg Intake: Intake, IV Titration 117.115 Amount Heparin Sod,Pork in 0.45% 117.115 NaCl 25,000 unit In 0.45 % NaCl 1 250ml.bag @ 18 UNITS/KG/HR 14.67 mls/hr IV .Q17H3M [facility] Rx#: [id number] Other: Voiding Method Toilet # Voids 1 2 1 - Exam PHYSICAL EXAMINATION: Patient is lying in the bed comfortably, no acute distress, awake alert and oriented.. HEENT: Normocephalic. Neck is supple. Pupils reactive. Nostrils clear. Oral cavity is moist. Ears reveal no drainage. Neck reveals no JVD, carotid bruits, or thyromegaly. CHEST EXAMINATION: Trachea is central. Symmetrical expansion. Bibasilar diminished Lung cano clear to auscultation and percussion. CARDIAC: Normal S1, S2 with no gallops. No murmurs ABDOMEN: Soft. Distended with ascites. Bowel sounds normal. No organomegaly. No abdominal bruits. Extremities: reveal no edema. No clubbing or cyanosis Neurologically awake, alert, oriented x3 with well-coordinated movements. No focal deficits noted Skin: No rash or skin lesions. Psychiatric: Coperative. Nonsuicidal Musculoskeletal: No joint swelling or deformity. Normal range of motion. - Labs CBC & Chem 7: 07/31/18 11:39 07/30/18 12:48 Labs: Abnormal Lab Results - Last 24 Hours (Table) 07/31/18 07/31/18 07/31/18 Range/Units 11:39 11:39 17:48 WBC 15.1 H (3.8-10.6) k/uL Neutrophils # 13.3 H (1.3-7.7) k/uL Lymphocytes # 0.5 L (1.0-4.8) k/uL APTT 21.6 L 84.0 H (22.0-30.0) sec Assessment and Plan Assessment: Acute influenza A infection. Acute pulmonary embolism as per CTA on 07/29/2018 upon further review of. recent CT abdomen and pelvis with suspected ovarian carcinoma with metastatic lesions to peritoneum, liver and lower lungs. Liver biopsy is pending. Large ascites, status post paracentesis on 07/27/2018. Cytology is pending.. Paracentesis on 07/31/2018. Recent history of throat cancer status post radiation therapy completed on 05/31/2018 Recent urinary tract infection. Completed course with Ceftin. History of lung cancer status post right partial lung resection History of brain aneurysm status post angioplasty Hypertension Hyperlipidemia GERD History of [place] Anxiety and panic disorder Nicotine addiction/current some day smoker Obesity with BMI 31.9 Plan: Patient was started on heparin drip.. Continue with Tamiflu. Continue to hold aspirin Plavix due to scheduled liver biopsy. Continue to follow closely and current management. Oncology is on board. Further recommendations based on the clinical course. Prognosis is guarded. Time with Patient: Greater than 30
[2018-08-01 07:38] LABS: Basophils % (A) 0 %; Eosinophils # (A) 0.3 k/uL (0-0.7); Eosinophils % (A) 2 %; HCT 37.4 % (34.0-46.0); HGB 11.4 gm/dL (11.4-16.0); Hypochromasia Moderate; Lymphocytes # (A) 0.4 k/uL (1.0-4.8); Lymphocytes % (A) 4 %; MCH 27.9 pg (25.0-35.0); MCHC 30.5 g/dL (31.0-37.0); MCV 91.6 fL (80.0-100.0); Mean Platelet Volume 9.3; Monocytes # (A) 0.8 k/uL (0-1.0); Monocytes % (A) 7 %; Neutrophils # (A) 9.9 k/uL (1.3-7.7); Neutrophils % (A) 86 %; Platelet Count 285 k/uL (150-450); RBC 4.08 m/uL (3.80-5.40); RDW 14.8 % (11.5-15.5); WBC 11.5 k/uL (3.8-10.6)
[2018-08-01] MEDS: HEPARIN SOD,PORK IN 0.45% NACL 25,000 UNIT in 0.45% NACL 1 250ML.BAG IV SCH (08:13)
[2018-08-01] MEDS: HYDROcodone/APAP 5-325MG 1 EACH TAB PO PRN ×3 (08:22→23:04)
[2018-08-01] MEDS ORDERED: HYDROmorphone 1 MG/ML 1 ML SYRINGE IVP STA (10:49)
[2018-08-01] MEDS: METOPROLOL TARTRATE 50 MG TAB PO SCH ×2 (12:27→21:06)
[2018-08-01] MEDS: FAMOTIDINE 20 MG TAB PO SCH ×2 (12:27→21:06)
[2018-08-01] MEDS: ATORVASTATIN 80 MG TAB PO SCH (12:27)
[2018-08-01] MEDS: OSELTAMIVIR 75 MG CAP PO SCH ×2 (12:27→21:06)
[2018-08-01] MEDS: LOSARTAN 50 MG TAB PO SCH ×2 (14:33→15:02)
--- NOTE | 2018-08-01 15:19 | US ---
EXAMINATION TYPE: US biopsy liver DATE OF EXAM: 08/01/2018 HISTORY: Liver mass right lobe. FINDINGS: Maximal barrier technique was utilized. The skin overlying a suitable path to the patient' s right lobe liver mass was localized with ultrasound and the overlying skin prepped and draped. Ult rasound was utilized with sterile technique. Lidocaine was used for local anesthesia. A skin camilo w as made with a scalpel. An 18-gauge needle was advanced under direct ultrasound guidance and core sp ecimen obtained of the mass. Specimen submitted in formalin to Pathology. Following the procedure, hemostasis achieved and the patient is discharged in stable condition without complication. IMPRESSION:STATUS POST ULTRASOUND GUIDED CORE BIOPSY OF right lobe liver MASS, PATHOLOGY IS PENDING. THIS PROCEDURE IS PERFORMED BY THE UNDERSIGNED.
--- NOTE | 2018-08-01 15:36 | US ---
EXAMINATION TYPE: US paracentesis abd w/image DATE OF EXAM: 08/01/2018 COMPARISON: NONE HISTORY: Ascites. PROCEDURE: Maximal barrier technique was utilized. The skin overlying a suitable pocket of fluid was localized with ultrasound and the overlying skin was prepped and draped. Ultrasound was utilized with sterile technique. Lidocaine was used for local anesthesia and a skin camilo made with a scalpel. Catheter was advanced under direct ultrasound guidance into a suitable pocket of fluid and approximately 1.8 liter s of serous sanguinous fluid were removed. Catheter was withdrawn and hemostasis achieved. There is no immediate complication; the patient is discharged in stable condition. IMPRESSION: STATUS POST ULTRASOUND GUIDED PARACENTESIS FOR PALLIATION OF ASCITES. THIS PROCEDURE WA S PERFORMED BY THE UNDERSIGNED.
--- NOTE | 2018-08-01 17:33 | P.PN ---
Subjective Progress Note Date: 08/01/18 Principal diagnosis: Metastatic Cancer, Acute Hypoxic Respiratory failure Status Post Paracentesis 1.8 off today and liver biopsy. The Ascites fluid from 07/30 was positive for Adenocarcinoma, although consistent with a pulmonary origin. Objective - Vital Signs Vital signs: Vital Signs Temp 98.1 F 08/01/18 14:55 Pulse 92 08/01/18 15:10 Resp 16 08/01/18 15:10 BP 91/66 08/01/18 14:55 Pulse Ox 99 08/01/18 14:55 Intake & Output 07/31/18 08/01/18 08/01/18 18:59 06:59 18:59 Intake Total 117.115 240 Balance 117.115 240 Weight 85.6 kg Intake: Intake, IV Titration 117.115 Amount Heparin Sod,Pork in 0.45% 117.115 NaCl 25,000 unit In 0.45 % NaCl 1 250ml.bag @ 18 UNITS/KG/HR 14.67 mls/hr IV .Q17H3M [facility] Rx#: [id number] Oral 240 Other: Voiding Method Toilet Toilet # Voids 2 1 1 - Exam Gen: Alert no acute distress Head NCNT Mouth: dry no thrush Lungs: No increased effort bilateral bases diminished Heart: Tachy, Regular Abdomen: Distended, Firm ascites Extremities: Mild BLE Edema Neuro: No sensory or motor deficits - Labs CBC & Chem 7: 08/01/18 05:39 07/30/18 12:48 Labs: Abnormal Lab Results - Last 24 Hours (Table) 07/31/18 08/01/18 08/01/18 Range/Units 17:48 00:13 05:39 WBC 11.5 H (3.8-10.6) k/uL MCHC 30.5 L (31.0-37.0) g/dL Neutrophils # 9.9 H (1.3-7.7) k/uL Lymphocytes # 0.4 L (1.0-4.8) k/uL APTT 84.0 H 61.6 H (22.0-30.0) sec Assessment and Plan Plan: Assessment and Recs: 1. Abdominal Ascites: Concern for new underlying malignancy on CT - Paracentesis today prior to liver biopsy and will resend fluid for cytology, discussed with Dr. Ramachandran - Tumor markers reviewed, likely malignancy consistent with Ovarian origin, will need cytology or tissue cell confirmation, will plan paracentesis to obtain this. - Status post 5.9L off on 07/27/18 - pathology from Ascites fluid Positive with adenocarcinoma, appearing consistent with lung primary, further molecular testing has been ordered - Status Post 1.8 liters paracentesis off today and Liver biopsy today - Await Path 2. New Right solid Ovarian Mass - Concerning for underlying Malignancy: - Approx 3.4x3.1cm 3. Small Newly Noted Hepatic Lesions: - Approx 8-10 mentioned on Imaging with average size 1-1.5cm, will as IR to obtain biopsy of liver lesion as well during ascites sampling to assess for two primary sites and to identifity the primary of the metastatic appearing melignancy in liver as unknown with her complicated cancer history - Status Post Biopsy 08/01/18 4. HX: NSCLA 5. Hx: Early Stage Larygneal Carcinoma 6. New Acute Pulmonary Embolism - CTA original read no identified PE, discussed with IR today and appears to be presence of Pulmonary embolism. - Continue on Heparin Drip and will check coverage for DOAC at discharge with Eliquis 10mg po BID x7, then 5mg PO BID 7. Acute Hypoxic Respiratory Failure: - Remains Tachycardic, and requiring 2-3L of Nasal Canula - Likely secondary to increased abdominal ascites and new acute PE Physician Attestation: I have completed the full history and physical and developed the completed assessment and plan agree with above dictated as a scribe,. Addendum: Spoke to nursing and patient is refusing biopsy today as she is not feeling "up to it". RN discussed further with IR and will plan for tomorrow, will start heparin drip at this time and hold per IR recs for morning paracentesis and liver biopsy
[2018-08-02] MEDS: HEPARIN SOD,PORK IN 0.45% NACL 25,000 UNIT in 0.45% NACL 1 250ML.BAG IV SCH (01:20)
[2018-08-02] MEDS: IBUPROFEN 800 MG TAB PO PRN (05:06)
[2018-08-02] MEDS: HYDROcodone/APAP 5-325MG 1 EACH TAB PO PRN ×2 (05:09→12:52)
[2018-08-02 06:22] LABS: Basophils % (A) 0 %; Eosinophils # (A) 0.3 k/uL (0-0.7); Eosinophils % (A) 3 %; HCT 36.3 % (34.0-46.0); HGB 11.4 gm/dL (11.4-16.0); Hypochromasia Slight; Lymphocytes # (A) 0.4 k/uL (1.0-4.8); Lymphocytes % (A) 4 %; MCH 27.8 pg (25.0-35.0); MCHC 31.3 g/dL (31.0-37.0); Mean Platelet Volume 8.7; Monocytes # (A) 0.8 k/uL (0-1.0); Monocytes % (A) 9 %; Neutrophils # (A) 7.9 k/uL (1.3-7.7); Neutrophils % (A) 83 %; Platelet Count 301 k/uL (150-450); Poikilocytosis Slight; RBC 4.08 m/uL (3.80-5.40); WBC 9.5 k/uL (3.8-10.6)
[2018-08-02 07:03] LABS: ALT 27 U/L (9-52); AST 19 U/L (14-36); Albumin 1.9 g/dL (3.5-5.0); Alkaline Phosphatase 80 U/L (38-126); Anion Gap 4 mmol/L; Blood Urea Nitrogen 7 mg/dL (7-17); Calcium 8.3 mg/dL (8.4-10.2); Carbon Dioxide 20 mmol/L (22-30); Chloride 115 mmol/L (98-107); Glucose 83 mg/dL (74-99); Potassium 3.9 mmol/L (3.5-5.1); Sodium 139 mmol/L (137-145); Total Bilirubin 0.5 mg/dL (0.2-1.3); Total Protein 4.4 g/dL (6.3-8.2)
[2018-08-02] MEDS: ATORVASTATIN 80 MG TAB PO SCH (08:18)
[2018-08-02] MEDS: FAMOTIDINE 20 MG TAB PO SCH (08:18)
[2018-08-02] MEDS: OSELTAMIVIR 75 MG CAP PO SCH (08:18)
[2018-08-02] MEDS: METOPROLOL TARTRATE 50 MG TAB PO SCH (08:18)
[2018-08-02 11:36] VITALS: BP 98/66; PULSE 91; RESP 18; TEMP 98.6
--- NOTE | 2018-08-02 12:04 | P.PN ---
Subjective Progress Note Date: 08/01/18 Principal diagnosis: Acute influenza A infection Recurrent ascites due to suspected ovarian malignancy Hospital course:Patient is a 52-year-old female with a known history of lung cancer status post right lower lobe resection, recently diagnosed with throat cancer status post radiation therapy completed on 05/31/2018, hypertension, hyperlipidemia, GERD and also history of brain aneurysm status post angioplasty, recent paracentesis due to suspected ovarian cancer, cytology pending came to ER with complaints of shortness of breath. Patient is also having heart beating of fast. Patient was seen in the oncology clinic recently. Patient has been having sore throat for about 3-4 days. T-max is 99.8 on admission. Patient otherwise denied any complaints of chest pain. Patient was recently admitted to the hospital with abdominal pain and distention. Suspected ovarian cancer/malignancy and underwent paracentesis. Patient also has liver nodules are/mass. Cytology report is pending at this time. Patient is scheduled for liver biopsy by oncology.. Patient felt very weak and decreased appetite. No nausea vomiting or diarrhea. No headache or dizziness or lightheadedness. 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 There are metastatic lesions to the liver as well as small nodules in both lung bases. Large amount of ascites is noted. Plan neoplasm of other etiologies not excluded. WBC 18.3, influenza area positive. CTA showed no evidence of pulmonary embolism. Interstitial fibrotic changes. COPD. Abdominal ascites. Chest x-ray showed mild pleural reaction in the lung base similar to old exam. No heart failure. 07/31/2018 Patient says that she is not feeling well today. Patient is status post paracentesis. Does not want to have liver biopsy. No fever no chills. Patient does have some nausea. Under further review of CTA on 07/29/18 it appears there is a positive pulmonary embolism as per radiology.. Patient was started on anticoagulation with heparin drip. No headache or dizziness or lightheadedness. No chest pain or worsening shortness of breath. 08/01/2018 Patient is being continued on heparin drip. Patient did have liver biopsy. Paracentesis done on 07/30/2018 showed malignant cells possibly lung origin. Further analysis is pending. Oncology is following. Patient's breathing status is improving. Currently on Tamiflu. Encourage oral intake and discontinue IV fluids. Patient has been afebrile now. Anticipate discharge in next 24 hours and follow with oncology as an outpatient. [facility] is following for oral anticoagulant and admitted. No chest pain. No worsening shortness of breath. No nausea vomiting. No diarrhea dysuria. Current medications reviewed. Objective - Vital Signs Vital signs: Vital Signs Temp 98.1 F 08/01/18 14:55 Pulse 92 08/01/18 15:10 Resp 16 08/01/18 15:10 BP 91/66 08/01/18 14:55 Pulse Ox 99 08/01/18 14:55 Intake & Output 08/01/18 08/01/18 08/02/18 06:59 18:59 06:59 Intake Total 117.115 240 Balance 117.115 240 Weight 85.6 kg Intake: Intake, IV Titration 117.115 Amount Heparin Sod,Pork in 0.45% 117.115 NaCl 25,000 unit In 0.45 % NaCl 1 250ml.bag @ 18 UNITS/KG/HR 14.67 mls/hr IV .Q17H3M [facility] Rx#: [id number] Oral 240 Other: Voiding Method Toilet # Voids 1 1 - Exam PHYSICAL EXAMINATION: Patient is lying in the bed comfortably, no acute distress, awake alert and oriented.. HEENT: Normocephalic. Neck is supple. Pupils reactive. Nostrils clear. Oral cavity is moist. Ears reveal no drainage. Neck reveals no JVD, carotid bruits, or thyromegaly. CHEST EXAMINATION: Trachea is central. Symmetrical expansion. Bibasilar diminished Lung cano clear to auscultation and percussion. CARDIAC: Normal S1, S2 with no gallops. No murmurs ABDOMEN: Soft. Distended with ascites. Bowel sounds normal. No organomegaly. No abdominal bruits. Extremities: reveal no edema. No clubbing or cyanosis Neurologically awake, alert, oriented x3 with well-coordinated movements. No focal deficits noted Skin: No rash or skin lesions. Psychiatric: Coperative. Nonsuicidal Musculoskeletal: No joint swelling or deformity. Normal range of motion. - Labs CBC & Chem 7: 08/02/18 05:56 08/02/18 05:56 Labs: Abnormal Lab Results - Last 24 Hours (Table) 08/01/18 08/01/18 Range/Units 00:13 05:39 WBC 11.5 H (3.8-10.6) k/uL MCHC 30.5 L (31.0-37.0) g/dL Neutrophils # 9.9 H (1.3-7.7) k/uL Lymphocytes # 0.4 L (1.0-4.8) k/uL APTT 61.6 H (22.0-30.0) sec Assessment and Plan Assessment: Acute influenza A infection. Acute pulmonary embolism as per CTA on 07/29/2018 upon further review of recent CT abdomen and pelvis with suspected ovarian carcinoma with metastatic lesions to peritoneum, liver and lower lungs. Liver biopsy is pending. Large ascites, status post paracentesis on 07/27/2018. Cytology showed malignant cells... Paracentesis on 07/31/2018. Recent history of throat cancer status post radiation therapy completed on 05/31/2018 Recent urinary tract infection. Completed course with Ceftin. History of lung cancer status post right partial lung resection History of brain aneurysm status post angioplasty Hypertension Hyperlipidemia GERD History of [place] Anxiety and panic disorder Nicotine addiction/current some day smoker Obesity with BMI 31.9 Plan: Patient was started on heparin drip.. Continue with Tamiflu. We'll start back on aspirin Plavix tomorrow. Patient had liver biopsy today.. Continue to follow closely and current management. Oncology is on board. Further recommendations based on the clinical course. Prognosis is guarded. Time with Patient: Greater than 30
[2018-08-02] MEDS ORDERED: APIXABAN 5 MG TAB PO SCH ×2 (13:15→21:00)
--- NOTE | 2018-08-03 00:29 | P.PN ---
Subjective Progress Note Date: 08/02/18 The patient's respiratory status is significantly improved. She was concerned about her diagnosis. He states that she started to have a menstrual cycle, though she had not had one for some time. No other bleeding noted. She denied any diarrhea or urinary complaints Objective - Vital Signs Vital signs: Vital Signs Temp 98.6 F 08/02/18 11:35 Pulse 91 08/02/18 11:35 Resp 18 08/02/18 11:35 BP 98/66 08/02/18 11:35 Pulse Ox 94 L 08/02/18 11:35 Intake & Output 08/02/18 08/02/18 08/03/18 06:59 18:59 06:59 Intake Total 600 Balance 600 Weight 84.3 kg Intake: Oral 600 Other: Voiding Method Toilet # Voids 1 1 - Constitutional General appearance: Present: no acute distress - EENT Eyes: Present: EOMI ENT: Present: hearing grossly normal, normal oropharynx - Respiratory Respiratory: bilateral: CTA - Cardiovascular Rhythm: regular Heart sounds: normal: S1, S2 - Gastrointestinal General gastrointestinal: Present: normal bowel sounds, soft Localized gastrointestinal: rebound: diffuse, RUQ, LUQ, RLQ, LLQ, epigastric periumbilical, suprabubic, midline - Integumentary Integumentary: Present: normal - Neurologic Neurologic: Present: CNII-XII intact - Musculoskeletal Musculoskeletal: Present: generalized weakness, strength equal bilaterally - Psychiatric Psychiatric: Present: A&O x's 3, appropriate affect - Labs CBC & Chem 7: 08/02/18 05:56 08/02/18 05:56 Labs: Abnormal Lab Results - Last 24 Hours (Table) 08/02/18 08/02/18 08/02/18 Range/Units 05:56 05:56 05:56 Neutrophils # 7.9 H (1.3-7.7) k/uL Lymphocytes # 0.4 L (1.0-4.8) k/uL APTT 48.2 H (22.0-30.0) sec Chloride 115 H (98-107) mmol/L Carbon Dioxide 20 L (22-30) mmol/L Calcium 8.3 L (8.4-10.2) mg/dL Total Protein 4.4 L (6.3-8.2) g/dL Albumin 1.9 L (3.5-5.0) g/dL Assessment and Plan (1) Malignant ascites Narrative/Plan: The patient's pathology on the ascitic fluid came back positive for adenocarcinoma, consistent with lung primary. As noted in the initial consult, the patient does have a history of adenocarcinoma of the lung treated with surgery 4 years ago. The pathology report, and implications were discussed in detail with the patient and her daughter. She was advised that this most likely represents metastatic disease from her prior lung primary. Unfortunately she now has stage IV, or metastatic disease. Her cancer is not curable, and the objective of loc atment would be prolongation of life and palliation of symptoms. Systemic therapy would be the main stay of treatment Biomarker testing will be requested on her cytology sample. Patient will be followed up in the office. Treatment plan will be finalized based on testing results. The patient has an appropriate target, targeted agents could be used in the front line. Otherwise chemotherapy would be the standard of care. Status: Acute Code(s): R18.0 - MALIGNANT ASCITES SNOMED Code(s): 859625745 (2) Liver lesion Narrative/Plan: The patient is status post liver biopsy. Given the pathology on the ascites, metastatic lung cancer is the most likely possibility. The case was discussed with IR. Given her history of other primaries, it is felt that it be reasonable to do a liver biopsy to rule out metastasis from another source. Await results. She tolerated the procedure well Status: Acute Code(s): K76.9 - LIVER DISEASE, UNSPECIFIED SNOMED Code(s): 975903441 (3) Pulmonary emboli Narrative/Plan: This is cancer related. It was discussed with case management, the patient can be placed on a DOAC. Her coverage has been checked and she has coverage for the same. She'll be switched from heparin to the same. As this is malignancy related, and her tumor is metastatic, she will need to continue anticoagulation indefinitely, as long as she tolerates it well Status: Acute Code(s): I26.99 - OTHER PULMONARY EMBOLISM WITHOUT ACUTE COR PULMONALE SNOMED Code(s): 87225429
== END 2018-08-02 13:20 | disposition home health service (06) | DRG 435 ==
LOC: EC 19:46 → 3SCARD 21:16
PROVIDERS: ADMIT Hospitalist; ATTEND Hospitalist
PROC: 0FB13ZX Excision of Right Lobe Liver, Percutaneous Approach, Diagnostic (ICD-10-PCS; principal; 2018-08-01)
PROC: 0W9G3ZZ Drainage of Peritoneal Cavity, Percutaneous Approach (ICD-10-PCS; 2018-08-01)
DX: C78.7 Secondary malignant neoplasm of liver and intrahepatic bile duct (principal); I26.99 Other pulmonary embolism without acute cor pulmonale; J96.01 Acute respiratory failure with hypoxia; R18.0 Malignant ascites; E66.9 Obesity, unspecified; E78.5 Hyperlipidemia, unspecified; E86.0 Dehydration; F17.210 Nicotine dependence, cigarettes, uncomplicated; F41.0 Panic disorder [episodic paroxysmal anxiety]; I10 Essential (primary) hypertension; I25.2 Old myocardial infarction; J10.1 Influenza due to other identified influenza virus with other respiratory manifestations; J44.9 Chronic obstructive pulmonary disease, unspecified; K21.9 Gastro-esophageal reflux disease without esophagitis; K74.60 Unspecified cirrhosis of liver; Z68.31 Body mass index [BMI] 31.0-31.9, adult; Z79.02 Long term (current) use of antithrombotics/antiplatelets; Z79.82 Long term (current) use of aspirin; Z79.899 Other long term (current) drug therapy; Z85.118 Personal history of other malignant neoplasm of bronchus and lung; Z85.21 Personal history of malignant neoplasm of larynx; Z92.3 Personal history of irradiation; L73.2 Hidradenitis suppurativa; Z90.2 Acquired absence of lung [part of]; F41.9 Anxiety disorder, unspecified; Z88.0 Allergy status to penicillin; Z80.9 Family history of malignant neoplasm, unspecified; R91.1 Solitary pulmonary nodule; Z79.891 Long term (current) use of opiate analgesic
CPT/HCPCS: 36415; 47000; 49083; 71045; 71046; 71275; 76942; 80048; 80053; 83735; 83880; 84484; 85025; 85610; 85730; 87502; 88307; 88341; 88342; 93005; 94640; 96361; 96365; 99285

== ENCOUNTER 2018-08-15 18:38 | Inpatient (IN) | payer OTHER ==
[2018-08-15] MEDS ORDERED: SODIUM CHLORIDE 0.9% 1,000 ML IV ONE ×2 (18:58→23:00)
[2018-08-15] MEDS ORDERED: CEFEPIME 2 GM in SODIUM CHLORIDE 0.9% 100 ML IVPB STA (19:24)
[2018-08-15] MEDS ORDERED: ACETAMINOPHEN SUPPOSITORY 650 MG SUPP RECTAL STA (19:26)
--- NOTE | 2018-08-15 19:28 | ED ---
General Adult HPI - General Chief complaint: Vaginal Bleeding Stated complaint: Abdominal Pain Time Seen by Provider: 08/15/18 18:57 Source: patient Mode of arrival: wheelchair Limitations: no limitations - History of Present Illness Initial comments: 52-year-old female with past medical history of lung cancer with liver metastases, history of uterine cancer, previous [place] on eliquis. Patient states she was recently changed eliquis about 3 weeks ago. She states that she has had vaginal bleeding since. She states the vaginal bleeding has been increasing, she states she passes large clots. Patient states when bleeding continued today she presented for evaluation. Patient admits to cold intolerance. Patient denies chest pain palpitations, shortness of breath, dyspnea on exertion lower extremity swelling, calf pain. Patient states she has diffuse abdominal pain that increases with any movement. Patient states she had a paracentesis twice within the last week. Patient states she is seen by Dr. luna for her cancer treatment. Patient states she had radiation for her throat cancer in May 2018. Patient is overall a poor historian of her past medical history. Patient is unsure of her primary cancer, or new diagnoses. Patient states she was recently discharged after a stay for a week due after presenting for abdominal pain and flu like symptoms. She states she was also told she had a blood clot on her lung during this stay and was started on heparin and changed to eliquis on discharge. Remaining review of systems negative, patient denies any back pain, vomiting, diarrhea, melena, hematochezia, hematemesis, numbness or tingling, dysuria or hematuria, constipation or diarrhea, headaches or visual changes, or any other complaints. - Related Data Home Medications Medication Instructions Recorded Confirmed Atorvastatin [Lipitor] 80 mg PO DAILY 10/21/13 08/15/18 Morphine Sulfate ER [Ms Contin] 15 mg PO Q12HR 07/21/18 08/15/18 oxyCODONE-APAP 10-325MG [Percocet 1 tab PO Q4HR PRN 07/29/18 08/15/18 10-325 mg] Folic Acid 1 mg PO DAILY 08/15/18 08/15/18 Previous Rx's Medication Instructions Recorded Ondansetron Odt [Zofran ODT] 4 mg PO Q8HR PRN #10 tab 07/21/18 Apixaban [Eliquis] 5 mg PO BID #60 tab.ds.pk 08/02/18 Allergies Allergy/AdvReac Type Severity Reaction Status Date / Time Penicillins Allergy Unknown Verified 08/15/18 19:44 Childhood Review of Systems ROS Statement: Those systems with pertinent positive or pertinent negative responses have been documented in the HPI. ROS Other: All systems not noted in ROS Statement are negative. Past Medical History Past Medical History: Cancer, GERD/Reflux, Hyperlipidemia, Hypertension, Myocardial Infarction ([place]) Additional Past Medical History / Comment(s): BRAIN ANEURSYM, LUNG CA, CARPAL TUNNEL RIGHT WRIST, throat CA dx apr 2018 Last Myocardial Infarction Date:: 04/30/2013 History of Any Multi-Drug Resistant Organisms: None Reported Past Surgical History: Heart Catheterization, Orthopedic Surgery, Tubal Ligation, Uterine Ablation Additional Past Surgical History / Comment(s): ANGIOPLASTY FOR BRAIN ANEURSYM, CARPEL TUNNEL RIGHT WRIST , and laparoscopy, PARTIAL RIGHT LUNG REMOVAL ,PTCA, Past Anesthesia/Blood Transfusion Reactions: No Reported Reaction Past Psychological History: Anxiety, Panic Disorder Smoking Status: Current some day smoker Past Alcohol Use History: None Reported Past Drug Use History: None Reported - Past Family History Mother Family Medical History: Cancer Father Family Medical History: Cancer General Exam - General Exam Comments Initial Comments: General: The patient is awake and alert, in no distress Eye: +3 mm pupils are equal, round and reactive to light, extra-ocular movements are intact. No nystagmus. There is normal conjunctiva bilaterally. No signs of icterus. Pale mucosa and mucous membranes Ears, nose, mouth and throat: There are moist mucous membranes and no oral lesions. Neck: The neck is supple, there is no tenderness or JVD. Discoloration on skin of anterior neck upper chest consistent with radiation therapy. Cardiovascular: There is a increased rate and regular rhythm. No murmur, rub or gallop is appreciated. Respiratory: Lungs are clear to auscultation, respirations are non-labored, breath sounds are equal. No wheezes, stridor, rales, or rhonchi Gastrointestinal: Distended diffusely tender abdomen with no point localization. Patient guarding no rigidity. Positive fluid wave. No CVA tenderness. Bowel sounds are unremarkable. Musculoskeletal: Normal ROM, no tenderness. Strength 5/5. Sensation intact. Radial pulses equal bilaterally 2+. Neurological: A&O x 3. CN II-XII intact, There are no obvious motor or sensory deficits. Coordination appears grossly intact. Speech is normal. Skin: Skin is warm and dry and no rashes or lesions are noted. No lower extremity edema, calf pain. Psychiatric: Cooperative, appropriate mood & affect, normal judgment. Limitations: no limitations Course Vital Signs 08/15/18 08/15/18 08/15/18 18:52 19:18 21:08 Temperature 101.3 F H 102.3 F H 99.5 F Pulse Rate 146 H 149 H 123 H Respiratory 18 20 18 Rate Blood Pressure 103/70 99/69 101/62 O2 Sat by Pulse 97 100 100 Oximetry 08/15/18 08/15/18 08/15/18 22:08 22:39 22:59 Temperature 100.1 F H Pulse Rate 120 H 115 H 115 H Respiratory 18 18 19 Rate Blood Pressure 90/60 96/69 106/71 O2 Sat by Pulse 100 100 100 Oximetry 08/16/18 00:17 Temperature 99.1 F Pulse Rate 109 H Respiratory 19 Rate Blood Pressure 91/62 O2 Sat by Pulse 100 Oximetry EKG Findings - EKG Comments: EKG Findings:: Ventricular rate 147 bpm, IL interval 128 ms, QRS moravian 68 ms, QT/QTc to 276/431 ms. Sinus tachycardia with nonspecific ST abnormality. No ST elevation or depression. Medical Decision Making - Medical Decision Making 52-year-old female that extensive history of cancer presenting today for chief complaint of vaginal bleeding 3 weeks. Upon arrival patient had pale mucous membranes. Patient blood pressure on the lower aspect of normal. Patient was transferred to trauma room for stabilization and further evaluation.EKG revealed sinus tachycardia. No ST elevation or depression. Troponin negative. Patient hemoglobin stable at 10 upon chart review no significant decrease in comparison with baseline. She admits to chills, cold intolerance. Denies any chest pain and heart palpitations or shortness of breath. Patient heart rate elevated, patient febrile. Patient was started on a broad-spectrum antibiotics cefepime as recommended by Dr. Denise patient admitting provider who was in the emergency department at time of patient's arrival. Meets SIRS criteria. Patient lactic acid within normal limits influenza testing negative. Patient given fluid bolus. CT of the abdomen and pelvis revealed findings consistent with possible metastasis to the liver, patient has probable ovarian mass with abdominal ascites most likely of due to malignancies given extensive cancer history. Chest x-ray revealed no acute cardiopulmonary process. Patient has positive fluid wave on exam. DDX of fever includes spontaneous bacterial peritonitis Pt was given Tylenol. Patient reevaluated on multiple occasions patient states some relief of pain. Upon pelvic examination there is foul odor, blood with clots in vault however not evidence of hemorrhage/heavy vaginal bleeding or bright red blood. Pt has no cervical motion tenderness or discharge. After discussing the case at length with attending provider we will admit patient with multiple co nsultations including hematology oncology, BUTCHER, GI, and infectious disease. I dicussed findings with patient in detail and at length, patient verbalized understanding of plan, as well as findings of ovarian tumor with metastases, ascites and concern for underlying infection. Patient heart rate decreasing with control fever and IVF. Repeat CBC pending. Patient care was provided bykatelinf as well as Dr Mc attending, who assessed reviewed labs/EKG, discussed ddx and disposition of patient . He resumed care of patient at 23:30 at end of my shift. A total of 40 minutes of critical care time was spent evaluating, reassessing, speakiing with consultants and performing multiple examinations. - Lab Data Result diagrams: 08/16/18 05:47 08/16/18 05:47 Lab Results 08/15/18 08/15/18 08/15/18 Range/Units 19:25 19:25 19:25 WBC 16.8 H (3.8-10.6) k/uL RBC 3.71 L (3.80-5.40) m/uL Hgb 10.0 L (11.4-16.0) gm/dL Hct 31.4 L (34.0-46.0) % MCV 84.6 (80.0-100.0) fL MCH 27.1 (25.0-35.0) pg MCHC 32.0 (31.0-37.0) g/dL RDW 14.6 (11.5-15.5) % Plt Count 499 H (150-450) k/uL Neutrophils % 88 % Lymphocytes % 5 % Monocytes % 5 % Eosinophils % 1 % Basophils % 0 % Neutrophils # 14.7 H (1.3-7.7) k/uL Lymphocytes # 0.8 L (1.0-4.8) k/uL Monocytes # 0.9 (0-1.0) k/uL Eosinophils # 0.1 (0-0.7) k/uL Basophils # 0.0 (0-0.2) k/uL PT (9.0-12.0) sec INR (<1.2) APTT (22.0-30.0) sec Sodium 136 L (137-145) mmol/L Potassium 4.7 (3.5-5.1) mmol/L Chloride 105 (98-107) mmol/L Carbon Dioxide 20 L (22-30) mmol/L Anion Gap 11 mmol/L BUN 11 (7-17) mg/dL Creatinine 0.82 (0.52-1.04) mg/dL Est GFR (CKD-EPI)AfAm >90 (>60 ml/min/1.73 sqM) Est GFR (CKD-EPI)NonAf 84 (>60 ml/min/1.73 sqM) Glucose 101 H (74-99) mg/dL Plasma Lactic Acid Chase (0.7-2.0) mmol/L Calcium 9.2 (8.4-10.2) mg/dL Magnesium (1.6-2.3) mg/dL Total Bilirubin 0.8 (0.2-1.3) mg/dL AST 22 (14-36) U/L ALT 27 (9-52) U/L Alkaline Phosphatase 123 (38-126) U/L Ammonia (<30) umol/L Troponin I <0.012 (0.000-0.034) ng/mL Total Protein 6.5 (6.3-8.2) g/dL Albumin 2.8 L (3.5-5.0) g/dL Lipase (23-300) U/L Influenza Type A RNA (Not Detectd) Influenza Type B (PCR) (Not Detectd) Blood Type Blood Type Confirm Blood Type Recheck Antibody Screen Spec Expiration Date 08/15/18 08/15/18 08/15/18 Range/Units 19:25 20:25 20:25 WBC (3.8-10.6) k/uL RBC (3.80-5.40) m/uL Hgb (11.4-16.0) gm/dL Hct (34.0-46.0) % MCV (80.0-100.0) fL MCH (25.0-35.0) pg MCHC (31.0-37.0) g/dL RDW (11.5-15.5) % Plt Count (150-450) k/uL Neutrophils % % Lymphocytes % % Monocytes % % Eosinophils % % Basophils % % Neutrophils # (1.3-7.7) k/uL Lymphocytes # (1.0-4.8) k/uL Monocytes # (0-1.0) k/uL Eosinophils # (0-0.7) k/uL Basophils # (0-0.2) k/uL PT (9.0-12.0) sec INR (<1.2) APTT (22.0-30.0) sec Sodium (137-145) mmol/L Potassium (3.5-5.1) mmol/L Chloride (98-107) mmol/L Carbon Dioxide (22-30) mmol/L Anion Gap mmol/L BUN (7-17) mg/dL Creatinine (0.52-1.04) mg/dL Est GFR (CKD-EPI)AfAm (>60 ml/min/1.73 sqM) Est GFR (CKD-EPI)NonAf (>60 ml/min/1.73 sqM) Glucose (74-99) mg/dL Plasma Lactic Acid Chase 0.8 (0.7-2.0) mmol/L Calcium (8.4-10.2) mg/dL Magnesium 1.7 (1.6-2.3) mg/dL Total Bilirubin (0.2-1.3) mg/dL AST (14-36) U/L ALT (9-52) U/L Alkaline Phosphatase (38-126) U/L Ammonia <9 (<30) umol/L Troponin I (0.000-0.034) ng/mL Total Protein (6.3-8.2) g/dL Albumin (3.5-5.0) g/dL Lipase 16 L (23-300) U/L Influenza Type A RNA (Not Detectd) Influenza Type B (PCR) (Not Detectd) Blood Type O Positive Blood Type Confirm Blood Type Recheck CABO Indicated Antibody Screen NEGATIVE Spec Expiration Date 08/18/2018 - 232408/15/18 08/15/18 08/15/18 Range/Units 20:25 20:25 20:25 WBC (3.8-10.6) k/uL RBC (3.80-5.40) m/uL Hgb (11.4-16.0) gm/dL Hct (34.0-46.0) % MCV (80.0-100.0) fL MCH (25.0-35.0) pg MCHC (31.0-37.0) g/dL RDW (11.5-15.5) % Plt Count (150-450) k/uL Neutrophils % % Lymphocytes % % Monocytes % % Eosinophils % % Basophils % % Neutrophils # (1.3-7.7) k/uL Lymphocytes # (1.0-4.8) k/uL Monocytes # (0-1.0) k/uL Eosinophils # (0-0.7) k/uL Basophils # (0-0.2) k/uL PT 13.1 H (9.0-12.0) sec INR 1.3 H (<1.2) APTT 24.5 (22.0-30.0) sec Sodium (137-145) mmol/L Potassium (3.5-5.1) mmol/L Chloride (98-107) mmol/L Carbon Dioxide (22-30) mmol/L Anion Gap mmol/L BUN (7-17) mg/dL Creatinine (0.52-1.04) mg/dL Est GFR (CKD-EPI)AfAm (>60 ml/min/1.73 sqM) Est GFR (CKD-EPI)NonAf (>60 ml/min/1.73 sqM) Glucose (74-99) mg/dL Plasma Lactic Acid Chase (0.7-2.0) mmol/L Calcium (8.4-10.2) mg/dL Magnesium (1.6-2.3) mg/dL Total Bilirubin (0.2-1.3) mg/dL AST (14-36) U/L ALT (9-52) U/L Alkaline Phosphatase (38-126) U/L Ammonia (<30) umol/L Troponin I (0.000-0.034) ng/mL Total Protein (6.3-8.2) g/dL Albumin (3.5-5.0) g/dL Lipase (23-300) U/L Influenza Type A RNA Not Detected (Not Detectd) Influenza Type B (PCR) Not Detected (Not Detectd) Blood Type Blood Type Confirm O Positive Blood Type Recheck Antibody Screen Spec Expiration Date Disposition Clinical Impression: SIRS (systemic inflammatory response syndrome), Fever, unknown origin, Ascites, Ovarian mass, Abdominal pain, Vaginal bleeding Disposition: ADMITTED IP TO THIS HOSP Condition: Serious Is patient prescribed a controlled substance at d/c from ED?: No Time of Disposition: 21:31 Decision to Admit Reason: Admit from EC Decision Date: 08/15/18 Decision Time: 21:31
[2018-08-15 19:52] LABS: ALT 27 U/L (9-52); AST 22 U/L (14-36); Albumin 2.8 g/dL (3.5-5.0); Alkaline Phosphatase 123 U/L (38-126); Anion Gap 11 mmol/L; Blood Urea Nitrogen 11 mg/dL (7-17); Calcium 9.2 mg/dL (8.4-10.2); Carbon Dioxide 20 mmol/L (22-30); Chloride 105 mmol/L (98-107); Glucose 101 mg/dL (74-99); Potassium 4.7 mmol/L (3.5-5.1); Sodium 136 mmol/L (137-145); Total Bilirubin 0.8 mg/dL (0.2-1.3); Total Protein 6.5 g/dL (6.3-8.2)
--- NOTE | 2018-08-15 20:07 | XR ---
EXAMINATION TYPE: XR chest 1V portable DATE OF EXAM: 08/15/2018 COMPARISON: 07/31/2018 HISTORY: Chest pain TECHNIQUE: Single frontal view of the chest is obtained. FINDINGS: Heart and mediastinum are normal. Lungs are clear. Diaphragm is normal. Bony thorax appear s normal. There is subsegmental atelectasis or scarring at the left lung base. There are chest leads. There is probably some emphysematous change right upper lobe. IMPRESSION: No acute lung disease. Right upper lobe emphysema. No change compared to old exam.
[2018-08-15 20:09] LABS: Basophils % (A) 0 %; Eosinophils # (A) 0.1 k/uL (0-0.7); Eosinophils % (A) 1 %; HCT 31.4 % (34.0-46.0); Lymphocytes # (A) 0.8 k/uL (1.0-4.8); Lymphocytes % (A) 5 %; MCH 27.1 pg (25.0-35.0); MCV 84.6 fL (80.0-100.0); Mean Platelet Volume 7.9; Monocytes # (A) 0.9 k/uL (0-1.0); Monocytes % (A) 5 %; Neutrophils # (A) 14.7 k/uL (1.3-7.7); Neutrophils % (A) 88 %; Platelet Count 499 k/uL (150-450); RBC 3.71 m/uL (3.80-5.40); RDW 14.6 % (11.5-15.5); WBC 16.8 k/uL (3.8-10.6)
[2018-08-15] MEDS ORDERED: ACETAMINOPHEN TAB 325 MG TAB PO STA (20:15)
--- NOTE | 2018-08-15 20:39 | CT ---
EXAMINATION TYPE: CT abdomen pelvis w con DATE OF EXAM: 08/15/2018 COMPARISON: 07/23/2018 HISTORY: Abdominal pain. Hx of lung CA CT DLP: 792.9 mGycm Automated exposure control for dose reduction was used. TECHNIQUE: Helical acquisition of images was performed from the lung bases through the pelvis. CONTRAST: Performed without Oral Contrast and with IV Contrast, patient injected with 100 mL of Isovue 300. FINDINGS: There is mild subsegmental atelectasis or scarring at the lung bases. There is small pericardial effu jennifer. There is minimal pleural thickening at the left lung base. There are multiple small hypodense foci in the liver that measure up to 1.2 cm. Gallbladder appears n ormal. Bile ducts are not dilated. Spleen appears normal. There is no pancreatic mass. There is moderate ascites fluid in the abdomen. There is some loculation and fluid in the pelvis with anterior displacement of the uterus. 12 x 8 cm cystic mass in the pelvis on the right side with cent ral soft tissue density that measures 4.5 cm. This is suggestive of ovarian tumor with large cystic c omponent. There is some increased density in the omental fat anteriorly in the mid abdomen. There is no evidence of a bowel obstruction. There is a 1.5 cm nodular density on the left adrenal gland. The kidneys show satisfactory contrast o pacification. There is no hydronephrosis. Ureters are not dilated. There is no inguinal hernia. There is no sign of free air. IMPRESSION: SUBSEGMENTAL ATELECTASIS. MULTIPLE LOW-DENSITY LIVER LESIONS ARE MORE NUMEROUS THAN LAST CT SCAN AND SUGGESTIVE OF METASTATIC D ISEASE. ABDOMINAL ASCITES AND OMENTAL DENSITY CONSISTENT WITH MALIGNANT ASCITES AND CARCINOMATOSIS. 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 THIS APPEARS NOT SIGNIFICANTLY DIFFERENT THAN LAST EXAM.
[2018-08-15 20:49] LABS: INR 1.3 (<1.2); Magnesium 1.7 mg/dL (1.6-2.3); Partial Thromboplastin Time 24.5 sec (22.0-30.0); Prothrombin Time 13.1 sec (9.0-12.0)
[2018-08-15 20:50] LABS: Ammonia <9 umol/L (<30); Lactic Acid, Venous 0.8 mmol/L (0.7-2.0)
--- NOTE | 2018-08-15 21:12 | US ---
EXAMINATION TYPE: US transvaginal DATE OF EXAM: 08/15/2018 COMPARISON: NONE CLINICAL HISTORY: pain. Pain postmenopausal bleeding. Hx of lung CA.Exam limitations due to large com plex mass. TECHNIQUE: Transvaginal (TV). Date of LMP: 5 years ago. EXAM MEASUREMENTS: Uterus: 8.0 x 2.7x cm Limited due to mass not seen in transverse. Endometrial Stripe: Not visualized 1. Uterus: Anteverted Limited visualization 2. Endometrium: not seen 5. Bilateral Adnexa: Large complex mass seen midline 14.5 x 7.4 x 11.2 cm. 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 Ovaries are no t distinctly identified.
[2018-08-15] MEDS ORDERED: VANCOMYCIN IV PER PHARMACY 1 EACH MISC MISCELLANE PRN (21:25)
[2018-08-15] MEDS: SODIUM CHLORIDE 0.9% 1,000 ML IV SCH (22:00)
[2018-08-15] MEDS ORDERED: VANCOMYCIN 1,500 MG in SODIUM CHLORIDE 0.9% 250 ML IVPB STA (22:06)
[2018-08-15] MEDS ORDERED: HYDROcodone/APAP 5-325MG 1 EACH TAB PO STA (22:42)
[2018-08-15 22:47] LABS: Appearance,Urine Clear (Clear); Bacteria,Urine Rare /hpf; Bilirubin,Urine Negative (Negative); Blood,Urine Large (Negative); Color,Urine Yellow; Glucose,Urine (UA) Negative (Negative); Ketones,Urine 1+ (Negative); Leukocyte Esterase,Urine Trace (Negative); Nitrite,Urine Negative (Negative); Protein,Urine Trace (Negative); RBC,Urine >182 /hpf (0-5); Squamous Epithelial Cell,Urine 1 /hpf (0-4); Urobilinogen,Urine <2.0 mg/dL (<2.0)
[2018-08-15 23:06] LABS: Specific Gravity,Urine >1.050 (1.001-1.035)
[2018-08-16 00:52] LABS: Basophils % (A) 0 %; Eosinophils # (A) 0.3 k/uL (0-0.7); Eosinophils % (A) 2 %; HCT 23.2 % (34.0-46.0); Hypochromasia Slight; Lymphocytes # (A) 0.6 k/uL (1.0-4.8); Lymphocytes % (A) 5 %; MCH 27.8 pg (25.0-35.0); MCHC 32.8 g/dL (31.0-37.0); MCV 84.7 fL (80.0-100.0); Mean Platelet Volume 7.8; Monocytes # (A) 0.9 k/uL (0-1.0); Monocytes % (A) 7 %; Neutrophils # (A) 11.1 k/uL (1.3-7.7); Neutrophils % (A) 85 %; Platelet Count 392 k/uL (150-450); RBC 2.74 m/uL (3.80-5.40); RDW 14.7 % (11.5-15.5)
[2018-08-16 01:08] LABS: Glucose,Whole Blood 109 mg/dL (75-99)
[2018-08-16 01:30] LABS: HGB 7.6 gm/dL (11.4-16.0)
[2018-08-16] MEDS: CEFEPIME 1 GM in SODIUM CHLORIDE 0.9% 50 ML IVPB SCH ×3 (04:28→21:01)
[2018-08-16 06:25] LABS: Basophils % (A) 0 %; Eosinophils # (A) 0.1 k/uL (0-0.7); Eosinophils % (A) 1 %; HCT 24.5 % (34.0-46.0); HGB 7.8 gm/dL (11.4-16.0); Hypochromasia Slight; Lymphocytes # (A) 0.6 k/uL (1.0-4.8); Lymphocytes % (A) 4 %; MCH 27.4 pg (25.0-35.0); MCHC 31.8 g/dL (31.0-37.0); Mean Platelet Volume 7.9; Monocytes # (A) 0.8 k/uL (0-1.0); Monocytes % (A) 6 %; Neutrophils # (A) 12.1 k/uL (1.3-7.7); Neutrophils % (A) 88 %; Platelet Count 417 k/uL (150-450); RBC 2.85 m/uL (3.80-5.40); RDW 14.7 % (11.5-15.5); WBC 13.7 k/uL (3.8-10.6)
[2018-08-16 06:49] LABS: Anion Gap 8 mmol/L; Blood Urea Nitrogen 10 mg/dL (7-17); Calcium 8.2 mg/dL (8.4-10.2); Carbon Dioxide 21 mmol/L (22-30); Chloride 110 mmol/L (98-107); Glucose 105 mg/dL (74-99); Magnesium 1.6 mg/dL (1.6-2.3); Potassium 4.3 mmol/L (3.5-5.1); Sodium 139 mmol/L (137-145)
[2018-08-16] MEDS: SODIUM CHLORIDE 0.9% 1,000 ML IV SCH ×2 (07:05→14:52)
[2018-08-16] MEDS: HYDROmorphone 0.5 MG/0.5 ML SYRINGE IVP PRN ×2 (07:05→13:47)
[2018-08-16] MEDS ORDERED: ACETAMINOPHEN TAB 325 MG TAB PO PRN (08:25)
--- NOTE | 2018-08-16 09:19 | P.CONS ---
History of Present Illness - Reason for Consult Consult date: 08/16/18 FUO, possible spontaneous bacterial peritonitis - History of Present Illness This is a 52-year-old -[place] female who was diagnosed with adenocarcinoma in July 2015 status post surgical intervention and she was adv ised for chemotherapy but had poor follow-up. 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 At that time she was advised that cancer was not curable and treatment would be to prolong life and palliation of symptoms. There was also concern at that time for ovarian mass. She was also found to have a pulmonary embolism and started on eliquis. Last paracentesis done on August 01 1.8 L of fluid was removed. No cultures were obtained at that time. Previous to that, patient had a paracentesis on July 27 with removal of 5.8 L and cultures have been finalized from that specimen with no growth. Fungal culture is in process. Patient apparently has had vaginal bleeding since she started the eliquis with gradual increase in the amount of the bleeding as well as large clots. She complains of feeling cold but did not check her temperature at home. She denies any chest pain, shortness of breath, cough or sputum production, dysuria. She does complain of diffuse abdominal pain but states her abdominal size as less then prior to last paracentesis. Patient presented with signs of sepsis with fever of 102.3, sinus tachycardia in the 140s, leukocytosis 16.8. Her hemoglobin was 7.8, creatinine 0.6 Enrique. Lipase was normal. Influenza testing negative. Liver function tests normal. Troponin negative and albumin 2.8. Urinalysis revealed blood large, nitrate negative, leukoesterase trace, RBCs greater than 182. Transvaginal ultrasound showed large complex mass bilateral adnexa 14.5 x 7.4 x 11 x 2. Chest x-ray shows no acute lung disease. Right upper lobe emphysema with no change. Abdomen pelvis CAT scan revealed subsegmental atelectasis, multiple low density liver lesions more numerous from last study. Abdominal ascites with omental density consistent with malignant ascites and carcinomatosis. Unchanged. 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 This appears not significantly different than last exam. Patient was admitted to the intensive care unit and started on cefepime and vancomycin. Consults are in place with GI , oncology and gynecology. Review of Systems All systems: negative Constitutional: Reports chills, Reports fatigue, Reports lethargy, Reports malaise, Reports poor appetite, Reports weakness, Denies fever Eyes: denies blurred vision, denies pain Ears, nose, mouth and throat: Reports hoarseness, Reports vertigo, Denies dental pain, Denies headache, Denies mouth pain, Denies sore throat Cardiovascular: Reports lightheadedness, Denies chest pain, Denies dyspnea on exertion, Denies edema, Denies leg edema, Denies palpitations, Denies shortness of breath, Denies syncope Respiratory: Denies cough, Denies cough with sputum, Denies dyspnea, Denies excessive sputum, Denies hemoptysis, Denies home oxygen, Denies wheezing Gastrointestinal: Reports abdominal pain, Reports loss of appetite, Denies diarrhea, Denies nausea, Denies vomiting Genitourinary: Denies dysuria, Denies hematuria, Denies urgency, Denies urinary frequency Menstruation: Reports currently menstrual Musculoskeletal: Reports muscle weakness, Denies frequent falls, Denies gait dysfunction, Denies myalgias Integumentary: Denies pruritus, Denies rash, Denies wounds Neurological: Denies aphasia, Denies change in mentation, Denies numbness, Denies weakness Psychiatric: Denies anxiety, Denies depression Endocrine: Denies fatigue, Denies weight change Past Medical History Past Medical History: Cancer, GERD/Reflux, Hyperlipidemia, Hypertension, Myocardial Infarction ([place]) Additional Past Medical History / Comment(s): BRAIN ANEURSYM, LUNG CA, CARPAL TUNNEL RIGHT WRIST, throat CA dx apr 2018 Last Myocardial Infarction Date:: 04/30/2013 History of Any Multi-Drug Resistant Organisms: None Reported Past Surgical History: Heart Catheterization, Orthopedic Surgery, Tubal Ligation, Uterine Ablation Additional Past Surgical History / Comment(s): ANGIOPLASTY FOR BRAIN ANEURSYM, CARPEL TUNNEL RIGHT WRIST , and laparoscopy, PARTIAL RIGHT LUNG REMOVAL ,PTCA, Past Anesthesia/Blood Transfusion Reactions: No Reported Reaction Past Psychological History: Anxiety, Panic Disorder Smoking Status: Former smoker Past Alcohol Use History: None Reported Additional Past Alcohol Use History / Comment(s): Patient was a smoker and quit in April 2018. She denies any marijuana, illicit drug use or alcohol use. Her daughter is living with her. She is on disability. Past Drug Use History: None Reported - Past Family History Mother Family Medical History: Cancer Father Family Medical History: Cancer Medications and Allergies Home Medications Medication Instructions Recorded Confirmed Type Atorvastatin [Lipitor] 80 mg PO DAILY 10/21/13 08/15/18 History Morphine Sulfate ER [Ms Contin] 15 mg PO Q12HR 07/21/18 08/15/18 History Ondansetron Odt [Zofran ODT] 4 mg PO Q8HR PRN #10 tab 07/21/18 08/15/18 Rx oxyCODONE-APAP 10-325MG [Percocet 1 tab PO Q4HR PRN 07/29/18 08/15/18 History 10-325 mg] Apixaban [Eliquis] 5 mg PO BID #60 tab.ds.pk 08/02/18 08/15/18 Rx Folic Acid 1 mg PO DAILY 08/15/18 08/15/18 History Allergies Allergy/AdvReac Type Severity Reaction Status Date / Time Penicillins Allergy Unknown Verified 08/15/18 19:44 Childhood Physical Exam Vitals: Vital Signs Temp Pulse Pulse Resp BP BP Pulse Ox 08/16/18 08:00 101.5 F H 129 H 21 116/59 98 08/16/18 06:00 129 H 20 116/59 99 08/16/18 04:00 98.8 F 108 H 16 109/75 100 08/16/18 03:00 109 H 20 108/73 100 08/16/18 02:00 109 H 15 102/61 100 08/16/18 01:00 98.5 F 110 H 24 107/66 100 08/16/18 00:17 99.1 F 109 H 19 91/62 100 08/15/18 22:59 115 H 19 106/71 100 08/15/18 22:39 115 H 18 96/69 100 08/15/18 22:08 100.1 F H 120 H 18 90/60 100 08/15/18 21:08 99.5 F 123 H 18 101/62 100 08/15/18 19:18 102.3 F H 149 H 20 99/69 100 08/15/18 18:52 101.3 F H 146 H 18 103/70 97 Intake and Output 08/15/18 08/16/18 08/16/18 22:59 06:59 14:59 Intake Total 2800 200 Output Total 500 300 Balance 2300 -100 Intake: IV 200 Sodium Chloride 0.9% 1, 200 000 ml @ 100 mls/hr IV . Q10H [facility] Rx#:[id number] Intake, IV Titration 2800 Amount Cefepime 1 gm In Sodium 50 Chloride 0.9% 50 ml @ 100 mls/hr IVPB Q8H [facility] Rx#: [id number] Sodium Chloride 0.9% 1, 500 000 ml @ 100 mls/hr IV . Q10H [facility] Rx#:[id number] Sodium Chloride 0.9% 1, 1000 000 ml @ 999 mls/hr IV . Q1H1M [facility] Rx#:[id number] Sodium Chloride 0.9% 1, 1000 000 ml @ 999 mls/hr IV . Q1H1M [facility] Rx#:[id number] Vancomycin 1,500 mg In 250 Sodium Chloride 0.9% 250 ml @ 125 mls/hr IVPB Q12H [facility] Rx#:[id number] Output: Urine 500 300 Other: Voiding Method Bedpan Bedpan Weight 77.111 kg 86.5 kg Gen: This is a 52-year-old -[place] female. She is resting in ICU bed and appears to be comfortable and in no acute distress. HEENT: Head is atraumatic, normocephalic. Pupils equal, round. Sclerae is anicteric. Oral mucous membranes are moist. No erythema or edema of the oropharynx. Hoarseness noted. NECK: Supple. No JVD. No lymphadenopathy. No thyromegaly. LUNGS: Clear to auscultation. No wheezes or rhonchi. No intercostal retractions. HEART: Regular rate and rhythm. No murmur. ABDOMEN: Soft. Bowel sounds are present. No masses. Positive ascites. Generalized tenderness. EXTREMITIES: No pedal edema. No calf tenderness. Dorsalis pedis +2 bilaterally. NEUROLOGICAL: Patient is awake, alert and oriented x3. Cranial nerves 2 through 12 are grossly intact. Results Results: Laboratory Results WBC 13.7 k/uL (3.8-10.6) H 08/16/18 05:47 RBC 2.85 m/uL (3.80-5.40) L 08/16/18 05:47 Hgb 7.8 gm/dL (11.4-16.0) L 08/16/18 05:47 Hct 24.5 % (34.0-46.0) L 08/16/18 05:47 MCV 86.0 fL (80.0-100.0) 08/16/18 05:47 MCH 27.4 pg (25.0-35.0) 08/16/18 05:47 MCHC 31.8 g/dL (31.0-37.0) 08/16/18 05:47 RDW 14.7 % (11.5-15.5) 08/16/18 05:47 Plt Count 417 k/uL (150-450) 08/16/18 05:47 Neutrophils % 88 % 08/16/18 05:47 Lymphocytes % 4 % 08/16/18 05:47 Monocytes % 6 % 08/16/18 05:47 Eosinophils % 1 % 08/16/18 05:47 Basophils % 0 % 08/16/18 05:47 Neutrophils # 12.1 k/uL (1.3-7.7) H 08/16/18 05:47 Lymphocytes # 0.6 k/uL (1.0-4.8) L 08/16/18 05:47 Monocytes # 0.8 k/uL (0-1.0) 08/16/18 05:47 Eosinophils # 0.1 k/uL (0-0.7) 08/16/18 05:47 Basophils # 0.0 k/uL (0-0.2) 08/16/18 05:47 Hypochromasia Slight 08/16/18 05:47 PT 13.1 sec (9.0-12.0) H 08/15/18 20:25 INR 1.3 (<1.2) H 08/15/18 20:25 APTT 24.5 sec (22.0-30.0) 08/15/18 20:25 Sodium 139 mmol/L (137-145) 08/16/18 05:47 Potassium 4.3 mmol/L (3.5-5.1) 08/16/18 05:47 Chloride 110 mmol/L (98-107) H 08/16/18 05:47 Carbon Dioxide 21 mmol/L (22-30) L 08/16/18 05:47 Anion Gap 8 mmol/L 08/16/18 05:47 BUN 10 mg/dL (7-17) 08/16/18 05:47 Creatinine 0.67 mg/dL (0.52-1.04) 08/16/18 05:47 Est GFR (CKD-EPI)AfAm >90 (>60 ml/min/1.73 sqM) 08/16/18 05:47 Est GFR (CKD-EPI)NonAf >90 (>60 ml/min/1.73 sqM) 08/16/18 05:47 Glucose 105 mg/dL (74-99) H 08/16/18 05:47 POC Glucose (mg/dL) 109 mg/dL (75-99) H 08/16/18 00:57 POC Glu Appliance Assembler ID Odette Barrera 08/16/18 00:57 Plasma Lactic Acid Chase 0.8 mmol/L (0.7-2.0) 08/15/18 20:25 Calcium 8.2 mg/dL (8.4-10.2) L 08/16/18 05:47 Magnesium 1.6 mg/dL (1.6-2.3) 08/16/18 05:47 Total Bilirubin 0.8 mg/dL (0.2-1.3) 08/15/18 19:25 AST 22 U/L (14-36) 08/15/18 19:25 ALT 27 U/L (9-52) 08/15/18 19:25 Alkaline Phosphatase 123 U/L (38-126) 08/15/18 19:25 Ammonia <9 umol/L (<30) 08/15/18 20:25 Troponin I <0.012 ng/mL (0.000-0.034) 08/15/18 19:25 Total Protein 6.5 g/dL (6.3-8.2) 08/15/18 19:25 Albumin 2.8 g/dL (3.5-5.0) L 08/15/18 19:25 Lipase 16 U/L (23-300) L 08/15/18 20:25 Urine Color Yellow 08/15/18 22:22 Urine Appearance Clear (Clear) 08/15/18 22:22 Urine pH 7.0 (5.0-8.0) 08/15/18 22:22 Ur Specific [place] >1.050 (1.001-1.035) H 08/15/18 22:22 Urine Protein Trace (Negative) H 08/15/18 22:22 Urine Glucose (UA) Negative (Negative) 08/15/18 22:22 Urine Ketones 1+ (Negative) H 08/15/18 22:22 Urine Blood Large (Negative) H 08/15/18 22:22 Urine Nitrite Negative (Negative) 08/15/18 22:22 Urine Bilirubin Negative (Negative) 08/15/18 22:22 Urine Urobilinogen <2.0 mg/dL (<2.0) 08/15/18 22:22 Ur Leukocyte Esterase Trace (Negative) H 08/15/18 22:22 Urine RBC >182 /hpf (0-5) H 08/15/18 22:22 Ur Squamous Epith Cells 1 /hpf (0-4) 08/15/18 22:22 Urine Bacteria Rare /hpf (None) H 08/15/18 22:22 Urine HCG, Qual Not Detected (Not Detectd) 08/15/18 22:22 Influenza Type A RNA Not Detected (Not Detectd) 08/15/18 20:25 Influenza Type B (PCR) Not Detected (Not Detectd) 08/15/18 20:25 Blood Type O Positive 08/15/18 19:25 Blood Type Confirm O Positive 08/15/18 20:25 Blood Type Recheck CABO Indicated 08/15/18 19:25 Antibody Screen NEGATIVE 08/15/18 19:25 Spec Expiration Date 08/18/2018232408/15/18 19:25 CBC & Chem 7: 08/16/18 05:47 08/16/18 05:47 Labs: Abnormal Lab Results - Last 24 Hours (Table) 08/15/18 08/15/18 08/15/18 Range/Units 19:25 19:25 20:25 WBC 16.8 H (3.8-10.6) k/uL RBC 3.71 L (3.80-5.40) m/uL Hgb 10.0 L (11.4-16.0) gm/dL Hct 31.4 L (34.0-46.0) % Plt Count 499 H (150-450) k/uL Neutrophils # 14.7 H (1.3-7.7) k/uL Lymphocytes # 0.8 L (1.0-4.8) k/uL PT (9.0-12.0) sec INR (<1.2) Sodium 136 L (137-145) mmol/L Chloride (98-107) mmol/L Carbon Dioxide 20 L (22-30) mmol/L Glucose 101 H (74-99) mg/dL POC Glucose (mg/dL) (75-99) mg/dL Calcium (8.4-10.2) mg/dL Albumin 2.8 L (3.5-5.0) g/dL Lipase 16 L (23-300) U/L Ur Specific [place] (1.001-1.035) Urine Protein (Negative) Urine Ketones (Negative) Urine Blood (Negative) Ur Leukocyte Esterase (Negative) Urine RBC (0-5) /hpf Urine Bacteria (None) /hpf 08/15/18 08/15/18 08/16/18 Range/Units 20:25 22:22 00:20 WBC 13.0 H (3.8-10.6) k/uL RBC 2.74 L (3.80-5.40) m/uL Hgb 7.6 L D (11.4-16.0) gm/dL Hct 23.2 L (34.0-46.0) % Plt Count (150-450) k/uL Neutrophils # 11.1 H (1.3-7.7) k/uL Lymphocytes # 0.6 L (1.0-4.8) k/uL PT 13.1 H (9.0-12.0) sec INR 1.3 H (<1.2) Sodium (137-145) mmol/L Chloride (98-107) mmol/L Carbon Dioxide (22-30) mmol/L Glucose (74-99) mg/dL POC Glucose (mg/dL) (75-99) mg/dL Calcium (8.4-10.2) mg/dL Albumin (3.5-5.0) g/dL Lipase (23-300) U/L Ur Specific [place] >1.050 H (1.001-1.035) Urine Protein Trace H (Negative) Urine Ketones 1+ H (Negative) Urine Blood Large H (Negative) Ur Leukocyte Esterase Trace H (Negative) Urine RBC >182 H (0-5) /hpf Urine Bacteria Rare H (None) /hpf 08/16/18 08/16/18 08/16/18 Range/Units 00:57 05:47 05:47 WBC 13.7 H (3.8-10.6) k/uL RBC 2.85 L (3.80-5.40) m/uL Hgb 7.8 L (11.4-16.0) gm/dL Hct 24.5 L (34.0-46.0) % Plt Count (150-450) k/uL Neutrophils # 12.1 H (1.3-7.7) k/uL Lymphocytes # 0.6 L (1.0-4.8) k/uL PT (9.0-12.0) sec INR (<1.2) Sodium (137-145) mmol/L Chloride 110 H (98-107) mmol/L Carbon Dioxide 21 L (22-30) mmol/L Glucose 105 H (74-99) mg/dL POC Glucose (mg/dL) 109 H (75-99) mg/dL Calcium 8.2 L (8.4-10.2) mg/dL Albumin (3.5-5.0) g/dL Lipase (23-300) U/L Ur Specific [place] (1.001-1.035) Urine Protein (Negative) Urine Ketones (Negative) Urine Blood (Negative) Ur Leukocyte Esterase (Negative) Urine RBC (0-5) /hpf Urine Bacteria (None) /hpf Assessment and Plan Plan: This is a 52-year-old woman with past medical history of 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 She presents with signs of sepsis, possible spontaneous bacterial peritonitis. Patient is currently on cefepime and vancomycin. Continue supportive care. Further recommendations as patient progresses. The above dictated assessment and findings were discussed with Dr. Queen. The impression and plan of care have been directed as dictated. Octavia Brown nurse practitioner acting as scribe for Dr. Queen.
[2018-08-16] MEDS: VANCOMYCIN 1,500 MG in SODIUM CHLORIDE 0.9% 250 ML IVPB SCH (11:19)
[2018-08-16] MEDS: LACTATED RINGERS 1,000 ML IV SCH ×2 (12:15→12:20)
--- NOTE | 2018-08-16 12:57 | P.OBCN ---
History of Present Illness Consult date: 08/16/18 Reason for consult: pelvic mass, other (Vaginal bleeding) History of present illness: The patient is a 52-year-old woman who has a known diagnosis of both metastatic lung cancer as well as a neck cancer. She has stage IV lung cancer with metast ases to both the liver and the omentum and has had paracentesis done on multiple occasions for reduction of ascites. Review of the records demonstrates that, in 2014, she had a diagnostic and operative laparoscopy performed by Dr. Denis at which time she was thought to have endometriosis but the mass was left in place on the right side. As recently as last year, there is documentation of a known pelvic complex mass which has not apparently been addressed to this point. The patient's main concern at this admission is that she has been having moderate to heavy vaginal bleeding for the last 3 weeks at home having been menopausal over the last 2 years by her report. She does carry a history of a pulmonary embolism and cardiac concerns and has been on Eliquis. 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 Past Medical History Past Medical History: Cancer, GERD/Reflux, Hyperlipidemia, Hypertension, Myocardial Infarction ([place]) Additional Past Medical History / Comment(s): BRAIN ANEURSYM, LUNG CA, CARPAL TUNNEL RIGHT WRIST, throat CA dx apr 2018 Last Myocardial Infarction Date:: 04/30/2013 History of Any Multi-Drug Resistant Organisms: None Reported Past Surgical History: Heart Catheterization, Orthopedic Surgery, Tubal Ligation, Uterine Ablation Additional Past Surgical History / Comment(s): ANGIOPLASTY FOR BRAIN ANEURSYM, CARPEL TUNNEL RIGHT WRIST , and laparoscopy, PARTIAL RIGHT LUNG REMOVAL ,PTCA, Past Anesthesia/Blood Transfusion Reactions: No Reported Reaction Past Psychological History: Anxiety, Panic Disorder Smoking Status: Current some day smoker Past Alcohol Use History: None Reported Past Drug Use History: None Reported - Past Family History Mother Family Medical History: Cancer Father Family Medical History: Cancer Medications and Allergies Home Medications Medication Instructions Recorded Confirmed Type Atorvastatin [Lipitor] 80 mg PO DAILY 10/21/13 08/15/18 History Morphine Sulfate ER [Ms Contin] 15 mg PO Q12HR 07/21/18 08/15/18 History Ondansetron Odt [Zofran ODT] 4 mg PO Q8HR PRN #10 tab 07/21/18 08/15/18 Rx oxyCODONE-APAP 10-325MG [Percocet 1 tab PO Q4HR PRN 07/29/18 08/15/18 History 10-325 mg] Apixaban [Eliquis] 5 mg PO BID #60 tab.ds.pk 08/02/18 08/15/18 Rx Folic Acid 1 mg PO DAILY 08/15/18 08/15/18 History Allergies Allergy/AdvReac Type Severity Reaction Status Date / Time Penicillins Allergy Unknown Verified 08/15/18 19:44 Childhood Exam Vital Signs Temp Pulse Pulse Pulse Resp BP BP 08/16/18 12:00 98.8 F 113 H 14 99/65 08/16/18 10:00 120 H 16 119/73 08/16/18 09:48 99.4 F 121 H 16 119/73 08/16/18 08:00 101.5 F H 129 H 21 116/59 08/16/18 06:00 129 H 20 116/59 08/16/18 04:00 98.8 F 108 H 16 109/75 08/16/18 03:00 109 H 20 108/73 08/16/18 02:00 109 H 15 102/61 08/16/18 01:00 98.5 F 110 H 24 107/66 08/16/18 00:17 99.1 F 109 H 19 91/62 08/15/18 22:59 115 H 19 106/71 08/15/18 22:39 115 H 18 96/69 08/15/18 22:08 100.1 F H 120 H 18 90/60 08/15/18 21:08 99.5 F 123 H 18 101/62 08/15/18 19:18 102.3 F H 149 H 20 99/69 08/15/18 18:52 101.3 F H 146 H 18 103/70 Pulse Ox 08/16/18 12:00 93 L 08/16/18 10:00 95 08/16/18 09:48 93 L 08/16/18 08:00 98 08/16/18 06:00 99 08/16/18 04:00 100 08/16/18 03:00 100 08/16/18 02:00 100 08/16/18 01:00 100 08/16/18 00:17 100 08/15/18 22:59 100 08/15/18 22:39 100 08/15/18 22:08 100 08/15/18 21:08 100 08/15/18 19:18 100 08/15/18 18:52 97 Intake and Output 08/15/18 08/16/18 08/16/18 22:59 06:59 14:59 Intake Total 2800 200 Output Total 500 300 Balance 2300 -100 Intake: IV 200 Sodium Chloride 0.9% 1, 200 000 ml @ 100 mls/hr IV . Q10H [facility] Rx#:[id number] Intake, IV Titration 2800 Amount Cefepime 1 gm In Sodium 50 Chloride 0.9% 50 ml @ 100 mls/hr IVPB Q8H [facility] Rx#: [id number] Sodium Chloride 0.9% 1, 500 000 ml @ 100 mls/hr IV . Q10H [facility] Rx#:[id number] Sodium Chloride 0.9% 1, 1000 000 ml @ 999 mls/hr IV . Q1H1M [facility] Rx#:[id number] Sodium Chloride 0.9% 1, 1000 000 ml @ 999 mls/hr IV . Q1H1M [facility] Rx#:[id number] Vancomycin 1,500 mg In 250 Sodium Chloride 0.9% 250 ml @ 125 mls/hr IVPB Q12H [facility] Rx#:[id number] Output: Urine 500 300 Other: Voiding Method Bedpan Bedpan Weight 77.111 kg 86.5 kg 86.5 kg In general, this is a well-developed female with some difficulty breathing. She can only whisper. Her exam is confined to abdomen and pelvis which demonstrates generalized tenderness across the abdomen as well as a suggestion of some firmness below the umbilicus. Bimanual pelvic examination demonstrates an essentially normal cervix with minimal blood in the vaginal vault appeared is unable to appreciate the uterus aside from the fact that there is some firmness throughout the pelvis as the patient is quite uncomfortable with the examination. Results Result Diagrams: 08/16/18 05:47 08/16/18 05:47 Abnormal Lab Results - Last 24 Hours (Table) 08/15/18 08/15/18 08/15/18 Range/Units 19:25 19:25 20:25 WBC 16.8 H (3.8-10.6) k/uL RBC 3.71 L (3.80-5.40) m/uL Hgb 10.0 L (11.4-16.0) gm/dL Hct 31.4 L (34.0-46.0) % Plt Count 499 H (150-450) k/uL Neutrophils # 14.7 H (1.3-7.7) k/uL Lymphocytes # 0.8 L (1.0-4.8) k/uL PT (9.0-12.0) sec INR (<1.2) Sodium 136 L (137-145) mmol/L Chloride (98-107) mmol/L Carbon Dioxide 20 L (22-30) mmol/L Glucose 101 H (74-99) mg/dL POC Glucose (mg/dL) (75-99) mg/dL Calcium (8.4-10.2) mg/dL Albumin 2.8 L (3.5-5.0) g/dL Lipase 16 L (23-300) U/L Ur Specific [place] (1.001-1.035) Urine Protein (Negative) Urine Ketones (Negative) Urine Blood (Negative) Ur Leukocyte Esterase (Negative) Urine RBC (0-5) /hpf Urine Bacteria (None) /hpf 08/15/18 08/15/18 08/16/18 Range/Units 20:25 22:22 00:20 WBC 13.0 H (3.8-10.6) k/uL RBC 2.74 L (3.80-5.40) m/uL Hgb 7.6 L D (11.4-16.0) gm/dL Hct 23.2 L (34.0-46.0) % Plt Count (150-450) k/uL Neutrophils # 11.1 H (1.3-7.7) k/uL Lymphocytes # 0.6 L (1.0-4.8) k/uL PT 13.1 H (9.0-12.0) sec INR 1.3 H (<1.2) Sodium (137-145) mmol/L Chloride (98-107) mmol/L Carbon Dioxide (22-30) mmol/L Glucose (74-99) mg/dL POC Glucose (mg/dL) (75-99) mg/dL Calcium (8.4-10.2) mg/dL Albumin (3.5-5.0) g/dL Lipase (23-300) U/L Ur Specific [place] >1.050 H (1.001-1.035) Urine Protein Trace H (Negative) Urine Ketones 1+ H (Negative) Urine Blood Large H (Negative) Ur Leukocyte Esterase Trace H (Negative) Urine RBC >182 H (0-5) /hpf Urine Bacteria Rare H (None) /hpf 08/16/18 08/16/18 08/16/18 Range/Units 00:57 05:47 05:47 WBC 13.7 H (3.8-10.6) k/uL RBC 2.85 L (3.80-5.40) m/uL Hgb 7.8 L (11.4-16.0) gm/dL Hct 24.5 L (34.0-46.0) % Plt Count (150-450) k/uL Neutrophils # 12.1 H (1.3-7.7) k/uL Lymphocytes # 0.6 L (1.0-4.8) k/uL PT (9.0-12.0) sec INR (<1.2) Sodium (137-145) mmol/L Chloride 110 H (98-107) mmol/L Carbon Dioxide 21 L (22-30) mmol/L Glucose 105 H (74-99) mg/dL POC Glucose (mg/dL) 109 H (75-99) mg/dL Calcium 8.2 L (8.4-10.2) mg/dL Albumin (3.5-5.0) g/dL Lipase (23-300) U/L Ur Specific [place] (1.001-1.035) Urine Protein (Negative) Urine Ketones (Negative) Urine Blood (Negative) Ur Leukocyte Esterase (Negative) Urine RBC (0-5) /hpf Urine Bacteria (None) /hpf Assessment and Plan (1) Ovarian mass Current Visit: Yes Status: Acute Code(s): N83.9 - NONINFLAMMATORY DISORD OF OVARY, FALLOP & BROAD LIGFL, UNSP SNOMED Code(s): 622264995 Plan: The ovarian mass may or may not be malignant. I will draw an OVA-1 to evaluate this further with the patient is an unlikely candidate for him surgery. A gynecologic oncologist would be required for surgical intervention. As for the vaginal bleeding, this is almost certainly secondary to Eloquis. The bleeding seems to be stopping at this point as the anticoagulation has been stopped as well. I would just simply continue to follow this at this time. I will sign off the case unless further gynecologic the intervention as requested are needed. We will follow up on the blood testing as ordered above.
[2018-08-16] MEDS ORDERED: ALPRAZolam 0.5 MG TAB PO STA (14:22)
[2018-08-16] MEDS: ACETAMINOPHEN TAB 325 MG TAB PO PRN ×2 (14:45→18:45)
--- NOTE | 2018-08-16 15:07 | P.GSCN ---
History of Present Illness Consult date: 08/16/18 Reason for Consult: left axilla abscess Requesting physician: Tamanna Denise History of present illness: CHIEF COMPLAINT: Left axilla abscess HISTORY OF PRESENT ILLNESS: Patient examined at the bedside in the ICU. She reports boil to left axillary region that began about two days ago. Patient states the area is very tender to touch. She gives history of multiple boils in the past with the last one occurring about a year ago. She reports they have always resolved on their own. She attributes them to using a specific deodorant. She states she recently used her granddaughters deodorant, that was a brand that she has not been able to tolerate in the past, and immediately afterwards knew she should not have used it and knew she was going to get a boil. She denies drainage. Denies erythema. PAST MEDICAL HISTORY: See list. PAST SURGICAL HISTORY: See list. SOCIAL HISTORY: No illicit drug use. REVIEW OF SYSTEMS: CONSTITUTIONAL: Denies fever or chills. HEENT: Denies blurred vision, vision changes, or eye pain. Denies hemoptysis CARDIOVASCULAR: Denies chest pain or pressure. RESPIRATORY: No shortness of breath. GASTROINTESTINAL: Denies nausea. Denies vomiting. HEMATOLOGIC: Denies bleeding disorders. Reports vaginal bleeding GENITOURINARY: Denies any blood in urine. SKIN: Denies pruitis. Denies rash. Reports boil to left axilla. PHYSICAL EXAM: VITAL SIGNS: Reviewed. GENERAL: Well-developed in no acute distress. HEENT: No sclera icterus. Extraocular movements grossly intact. Moist buccal mucosa. Head is atraumatic, normocephalic. ABDOMEN: Soft. Nondistended. Nontender. NEUROLOGIC: Alert and oriented. Cranial nerves II through XII grossly intact. SKIN: Small, approximately 1cm mass of left axilla. No drainage. No surrounding firmness or warmth. No erythema. No drainage. Extreme tenderness to light palpation of left axillary region. ASSESSMENT: 1. Suspected boil of left axillary region PLAN: 1. Await results of US 2. May utilize warm compresses to region 3. May culture is area begins to drain 4. No surgical intervention at this recommended Nurse practitioner note has been reviewed by physician. Signing provider agrees with the documented findings, assessment, and plan of care. Past Medical History Past Medical History: Cancer, GERD/Reflux, Hyperlipidemia, Hypertension, Myocardial Infarction ([place]) Additional Past Medical History / Comment(s): BRAIN ANEURSYM, LUNG CA, CARPAL TUNNEL RIGHT WRIST, throat CA dx apr 2018 Last Myocardial Infarction Date:: 04/30/2013 History of Any Multi-Drug Resistant Organisms: None Reported Past Surgical History: Heart Catheterization, Orthopedic Surgery, Tubal Ligation, Uterine Ablation Additional Past Surgical History / Comment(s): ANGIOPLASTY FOR BRAIN ANEURSYM, CARPEL TUNNEL RIGHT WRIST , and laparoscopy, PARTIAL RIGHT LUNG REMOVAL ,PTCA, Past Anesthesia/Blood Transfusion Reactions: No Reported Reaction Past Psychological History: Anxiety, Panic Disorder Smoking Status: Current some day smoker Past Alcohol Use History: None Reported Past Drug Use History: None Reported - Past Family History Mother Family Medical History: Cancer Father Family Medical History: Cancer Medications and Allergies Home Medications Medication Instructions Recorded Confirmed Type Atorvastatin [Lipitor] 80 mg PO DAILY 10/21/13 08/15/18 History Ondansetron Odt [Zofran ODT] 4 mg PO Q8HR PRN #10 tab 07/21/18 08/15/18 Rx oxyCODONE-APAP 10-325MG [Percocet 1 tab PO Q4HR PRN 07/29/18 08/15/18 History 10-325 mg] Apixaban [Eliquis] 5 mg PO BID #60 tab.ds.pk 08/02/18 08/15/18 Rx Folic Acid 1 mg PO DAILY 08/15/18 08/15/18 History Allergies Allergy/AdvReac Type Severity Reaction Status Date / Time Penicillins Allergy Unknown Verified 08/15/18 19:44 Childhood Surgical - Exam Vital Signs Temp Pulse Resp BP Pulse Ox 101.3 F H 146 H 18 103/70 97 08/15/18 18:52 08/15/18 18:52 08/15/18 18:52 08/15/18 18:52 08/15/18 18:52 Results - Labs 08/16/18 05:47 08/16/18 05:47 Abnormal Lab Results - Last 24 Hours (Table) 08/15/18 08/15/18 08/15/18 Range/Units 19:25 19:25 20:25 WBC 16.8 H (3.8-10.6) k/uL RBC 3.71 L (3.80-5.40) m/uL Hgb 10.0 L (11.4-16.0) gm/dL Hct 31.4 L (34.0-46.0) % Plt Count 499 H (150-450) k/uL Neutrophils # 14.7 H (1.3-7.7) k/uL Lymphocytes # 0.8 L (1.0-4.8) k/uL PT (9.0-12.0) sec INR (<1.2) Sodium 136 L (137-145) mmol/L Chloride (98-107) mmol/L Carbon Dioxide 20 L (22-30) mmol/L Glucose 101 H (74-99) mg/dL POC Glucose (mg/dL) (75-99) mg/dL Calcium (8.4-10.2) mg/dL Albumin 2.8 L (3.5-5.0) g/dL Lipase 16 L (23-300) U/L Ur Specific Heath (1.001-1.035) Urine Protein (Negative) Urine Ketones (Negative) Urine Blood (Negative) Ur Leukocyte Esterase (Negative) Urine RBC (0-5) /hpf Urine Bacteria (None) /hpf 08/15/18 08/15/18 08/16/18 Range/Units 20:25 22:22 00:20 WBC 13.0 H (3.8-10.6) k/uL RBC 2.74 L (3.80-5.40) m/uL Hgb 7.6 L D (11.4-16.0) gm/dL Hct 23.2 L (34.0-46.0) % Plt Count (150-450) k/uL Neutrophils # 11.1 H (1.3-7.7) k/uL Lymphocytes # 0.6 L (1.0-4.8) k/uL PT 13.1 H (9.0-12.0) sec INR 1.3 H (<1.2) Sodium (137-145) mmol/L Chloride (98-107) mmol/L Carbon Dioxide (22-30) mmol/L Glucose (74-99) mg/dL POC Glucose (mg/dL) (75-99) mg/dL Calcium (8.4-10.2) mg/dL Albumin (3.5-5.0) g/dL Lipase (23-300) U/L Ur Specific Heath >1.050 H (1.001-1.035) Urine Protein Trace H (Negative) Urine Ketones 1+ H (Negative) Urine Blood Large H (Negative) Ur Leukocyte Esterase Trace H (Negative) Urine RBC >182 H (0-5) /hpf Urine Bacteria Rare H (None) /hpf 08/16/18 08/16/18 08/16/18 Range/Units 00:57 05:47 05:47 WBC 13.7 H (3.8-10.6) k/uL RBC 2.85 L (3.80-5.40) m/uL Hgb 7.8 L (11.4-16.0) gm/dL Hct 24.5 L (34.0-46.0) % Plt Count (150-450) k/uL Neutrophils # 12.1 H (1.3-7.7) k/uL Lymphocytes # 0.6 L (1.0-4.8) k/uL PT (9.0-12.0) sec INR (<1.2) Sodium (137-145) mmol/L Chloride 110 H (98-107) mmol/L Carbon Dioxide 21 L (22-30) mmol/L Glucose 105 H (74-99) mg/dL POC Glucose (mg/dL) 109 H (75-99) mg/dL Calcium 8.2 L (8.4-10.2) mg/dL Albumin (3.5-5.0) g/dL Lipase (23-300) U/L Ur Specific Heath (1.001-1.035) Urine Protein (Negative) Urine Ketones (Negative) Urine Blood (Negative) Ur Leukocyte Esterase (Negative) Urine RBC (0-5) /hpf Urine Bacteria (None) /hpf Diabetes panel 08/15/18 08/16/18 Range/Units 19:25 05:47 Sodium 136 L 139 (137-145) mmol/L Potassium 4.7 4.3 (3.5-5.1) mmol/L Chloride 105 110 H (98-107) mmol/L Carbon Dioxide 20 L 21 L (22-30) mmol/L BUN 11 10 (7-17) mg/dL Creatinine 0.82 0.67 (0.52-1.04) mg/dL Glucose 101 H 105 H (74-99) mg/dL Calcium 9.2 8.2 L (8.4-10.2) mg/dL AST 22 (14-36) U/L ALT 27 (9-52) U/L Alkaline Phosphatase 123 (38-126) U/L Total Protein 6.5 (6.3-8.2) g/dL Albumin 2.8 L (3.5-5.0) g/dL Calcium panel 08/15/18 08/16/18 Range/Units 19:25 05:47 Calcium 9.2 8.2 L (8.4-10.2) mg/dL Albumin 2.8 L (3.5-5.0) g/dL Pituitary panel 08/15/18 08/16/18 Range/Units 19:25 05:47 Sodium 136 L 139 (137-145) mmol/L Potassium 4.7 4.3 (3.5-5.1) mmol/L Chloride 105 110 H (98-107) mmol/L Carbon Dioxide 20 L 21 L (22-30) mmol/L BUN 11 10 (7-17) mg/dL Creatinine 0.82 0.67 (0.52-1.04) mg/dL Glucose 101 H 105 H (74-99) mg/dL Calcium 9.2 8.2 L (8.4-10.2) mg/dL Adrenal panel 08/15/18 08/16/18 Range/Units 19:25 05:47 Sodium 136 L 139 (137-145) mmol/L Potassium 4.7 4.3 (3.5-5.1) mmol/L Chloride 105 110 H (98-107) mmol/L Carbon Dioxide 20 L 21 L (22-30) mmol/L BUN 11 10 (7-17) mg/dL Creatinine 0.82 0.67 (0.52-1.04) mg/dL Glucose 101 H 105 H (74-99) mg/dL Calcium 9.2 8.2 L (8.4-10.2) mg/dL Total Bilirubin 0.8 (0.2-1.3) mg/dL AST 22 (14-36) U/L ALT 27 (9-52) U/L Alkaline Phosphatase 123 (38-126) U/L Total Protein 6.5 (6.3-8.2) g/dL Albumin 2.8 L (3.5-5.0) g/dL
[2018-08-16] MEDS ORDERED: ONDANSETRON ODT 4 MG TAB PO PRN (16:41)
[2018-08-16] MEDS ORDERED: oxyCODONE-APAP 10-325MG 1 EACH TAB PO PRN (16:41)
[2018-08-16] MEDS ORDERED: ALPRAZolam 0.25 MG TAB PO PRN (16:43)
[2018-08-16] MEDS ORDERED: TEMAZEPAM 15 MG CAP PO PRN (16:43)
--- NOTE | 2018-08-16 17:02 | US ---
EXAMINATION TYPE: US axilla LT DATE OF EXAM: 08/16/2018 COMPARISON: NONE CLINICAL HISTORY: 52-year-old female pain, Abscess. TECHNIQUE: Targeted ultrasound examination of the left axilla. FINDINGS: Lobulated heterogeneous collection with surrounding hyperemia and posterior through transmission julio uring 2.9 x 2.8 x 1.4cm located at the site of concern in the left axilla. IMPRESSION: A 2.9 cm abscess is confirmed in the left axilla.
[2018-08-16 17:13] LABS: Basophils % (A) 0 %; Eosinophils # (A) 0.2 k/uL (0-0.7); Eosinophils % (A) 2 %; HGB 7.6 gm/dL (11.4-16.0); Lymphocytes # (A) 0.5 k/uL (1.0-4.8); Lymphocytes % (A) 3 %; MCH 28.4 pg (25.0-35.0); MCHC 34.3 g/dL (31.0-37.0); MCV 82.7 fL (80.0-100.0); Mean Platelet Volume 8.4; Monocytes # (A) 0.8 k/uL (0-1.0); Monocytes % (A) 6 %; Neutrophils # (A) 12.5 k/uL (1.3-7.7); Neutrophils % (A) 89 %; Platelet Count 367 k/uL (150-450); Poikilocytosis Slight; RBC 2.66 m/uL (3.80-5.40); RDW 14.6 % (11.5-15.5); WBC 14.1 k/uL (3.8-10.6)
[2018-08-16] MEDS: PANTOPRAZOLE 40 MG/10 ML VIAL IVP SCH (17:37)
--- NOTE | 2018-08-16 18:23 | HP ---
HISTORY AND PHYSICAL DATE OF SERVICE: 08/15/2018 CHIEF COMPLAINTS: Fever, abdominal pain as well as bleeding. HISTORY OF PRESENT ILLNESS: This 52-year-old woman with a past medical history of multiple medical problems, including GERD, hypertension, hyperlipidemia, history of myocardial infarction, brain aneurysm, apparently throat cancer, lung cancer, being followed by Dr. Latisha Ziegler in the outpatient setting, is also being evaluated for ovarian carcinoma. The patient apparently was admitted recently and discharged. The patient also had a recent admission for acute influenza as well as acute pulmonary embolism. The patient was evaluated by multiple consultants in the outpatient setting. Apparently the patient went to [place] on vacation with her family and the patient developed a fever, abdominal pain as well as some left axilla pain and bleeding. The patient's daughter drove back to [facility] and the patient has been admitted through the emergency room at this time. There is no history any headache, loss of consciousness, no history of any chest pain, palpitations. The patient appears to be very pale, but hemoglobin is 10 at this time. The patient is on Eliquis, as mentioned earlier. PAST MEDICAL HISTORY: 1. History of ovarian cancer possibly. 2. GERD. 3. Hypertension. 4. Hyperlipidemia. 5. History of myocardial infarction. 6. Brain aneurysm. 7. History of cardiac catheterization. 8. Anxiety. 9. Panic disorder. HOME MEDICATIONS: 1. Percocet 10 mg q.4 p.r.n. 2. Zofran 4 mg q.8 p.r.n. 3. Folic acid 1 mg p.o. daily. 4. Lipitor 80 mg p.o. daily. 5. Eliquis 5 mg p.o. b.i.d. ALLERGIES: PENICILLIN. FAMILY HISTORY: History of cancer in the family. SOCIAL HISTORY: History of smoking. No history of alcohol intake. REVIEW OF SYSTEMS: ENT: Diminished hearing. Diminished vision. CARDIOVASCULAR SYSTEM: No angina, palpitations. RESPIRATORY SYSTEM: As mentioned earlier. GI: As mentioned earlier. : As mentioned earlier. NERVOUS SYSTEM: No numbness, weakness. ALLERGY/IMMUNOLOGY: No asthma, hayfever. MUSCULOSKELETAL: As mentioned earlier. HEMATOLOGY/ONCOLOGY: As mentioned earlier. ENDOCRINE: No history of diabetes, hypothyroidism. CONSTITUTIONAL: As mentioned earlier. DERMATOLOGY: Negative. RHEUMATOLOGY: Negative. PSYCHIATRY: As mentioned earlier. PHYSICAL EXAMINATION: Patient alert and oriented x3. Pulse is 135, blood pressure 99/69, respiration 20, temperature 102.9, pulse ox 100% on 2 L. HEENT: Conjunctivae pale. Oral mucosa dry and pale. NECK: No jugular venous distention. No carotid bruit. No lymph node enlargement. CARDIOVASCULAR SYSTEM: S1, S2 muffled. No S3. No S4. RESPIRATORY SYSTEM: Breath sounds diminished at the bases. A few scattered rhonchi and crackles. ABDOMEN: Soft, obese. Ascites present. Minimal discomfort, especially on the right lower quadrant. No guarding. No rigidity. No mass palpable. LEGS: No edema. No swelling. NERVOUS SYSTEM: Higher functions as mentioned earlier. Moves all 4 limbs. No focal motor or sensory deficit. LYMPHATICS: No lymph node palpable in neck, axillae or groin. SKIN: No ulcer, rash, bleeding. Minimal left axillary tenderness present. LABS AND INVESTIGATIONS: WBC 16.8, hemoglobin 10. INR 1.3. Sodium 136. CT scan of the abdomen and pelvis showed subsegmental atelectasis, multiple low-density liver lesions, possible metastatic disease, abdominal ascites, large cystic mass in the pelvis related to ovarian tumor. ASSESSMENT: 1. Abdominal pain, fever, with possible sepsis. 2. Left axillary abscess, possibly. 3. Possible ovarian cancer with metastases. 4. Genitourinary bleeding, possibly secondary to Eliquis. 5. History of pulmonary embolus. 6. History of gastroesophageal reflux disease. 7. Hypertension. 8. Hyperlipidemia. 9. Myocardial infarction. 10.Brain aneurysm. 11.History of carpal tunnel syndrome. 12.History of throat cancer. 13.History of cardiac catheterization. 14.History of angioplasty of the brain aneurysm. 15.History of anxiety, panic attacks. 16.Nicotine dependence. 17.FULL CODE. 18.Increased white count. 19.Anemia; acute blood loss anemia. 20.Hyponatremia. RECOMMENDATIONS AND DISCUSSION: In this 52-year-old woman who presented with multiple complex medical issues, we will monitor the patient closely, continue the current management, continue symptomatic treatment. Will initiate broad-spectrum IV antibiotics. Will obtain cultures. Would also recommend hematology/oncology and RIG BUILDER evaluations, infectious disease evaluation. Otherwise, resume the home medications. Will check the hemoglobin, and if there is a drop in hemoglobin we will transfuse the patient periodically. Will hold Eliquis. Prognosis extremely guarded because of multiple complex medical issues. Further recommendations to follow. A copy of this dictation is being forwarded to Dr. Latisha Ziegler, who is the patient's primary physician. MMODL / IJN: [id number] /
--- NOTE | 2018-08-16 18:55 | ECHOF ---
Referral Reason:tachycardia MEASUREMENTS -------- HEIGHT: 160.0 cm WEIGHT: 86.2 kg BP: 109/72 RVIDd: 2.6 cm (< 3.3) IVSd: 1.2 cm (0.6 - 1.1) LVIDd: 4.0 cm (3.9 - 5.3) LVPWd: 1.1 cm (0.6 - 1.1) IVSs: 1.6 cm LVIDs: 2.4 cm LVPWs: 1.3 cm LA Diam: 2.2 cm (2.7 - 3.8) LAESV Index (A-L): 21.18 ml/m IVSd: 3.0 cm (0.6 - 1.1) Ao Diam: 3.4 cm (2.0 - 3.7) AV Cusp: 2.4 cm (1.5 - 2.6) MV EXCURSION: 17.484 mm (> 18.000) MV EF SLOPE: 137 mm/s (70 - 150) EPSS: 0.6 cm MV E Jony: 0.84 m/s MV DecT: 209 ms MV A Jony: 1.06 m/s MV E/A Ratio: 0.79 RAP: 5.00 mmHg RVSP: 48.18 mmHg FINDINGS -------- Resting tachycardia (HR>100bpm). This was a technically adequate study. The left ventricular size is normal. There is borderline concentric left ventricular hypertrophy. Overall left ventricular systolic function is normal with, an EF between 60 - 65 %. The right ventricle is normal in size. Normal LA size by volume 22+/-6 ml/m2. The right atrium is normal in size. The aortic valve is trileaflet and appears structurally normal. The mitral valve is normal. Mild tricuspid regurgitation present. There is moderate pulmonary hypertension. The right ventric ular systolic pressure, as measured by Doppler, is 48.18mmHg. Trace/mild (physiologic) pulmonic regurgitation. The aortic root size is normal. Normal inferior vena cava with normal inspiratory collapse consistent with estimated right atrial pre ssure of 5 mmHg. There is no pericardial effusion. CONCLUSIONS -------- 1. Resting tachycardia (HR>100bpm). 2. This was a technically adequate study. 3. The left ventricular size is normal. 4. There is borderline concentric left ventricular hypertrophy. 5. Overall left ventricular systolic function is normal with, an EF between 60 - 65 %. 6. The right ventricle is normal in size. 7. Normal LA size by volume 22+/-6 ml/m2. 8. The right atrium is normal in size. 9. The aortic valve is trileaflet and appears structurally normal. 10. The mitral valve is normal. 11. Mild tricuspid regurgitation present. 12. There is moderate pulmonary hypertension. 13. The right ventricular systolic pressure, as measured by Doppler, is 48.18mmHg. 14. Trace/mild (physiologic) pulmonic regurgitation. 15. The aortic root size is normal. 16. Normal inferior vena cava with normal inspiratory collapse consistent with estimated right atrial pressure of 5 mmHg. 17. There is no pericardial effusion. CARAMEL CUTTER MACHINE: Shira Alcala RDCS
--- NOTE | 2018-08-16 19:05 | PN ---
PROGRESS NOTE DATE OF SERVICE: 08/16/2018 This 52-year-old woman who was admitted with abdominal pain, bleed, anemia as well as left axillary swelling had features of sepsis also. The patient continues to have fever. The patient is on broad-spectrum IV antibiotics. Multiple consultants, including SALVAGE WINDER and Hematology/Oncology, evaluated the patient closely. Past medical history reviewed. REVIEW OF SYSTEMS: CARDIOVASCULAR SYSTEM: No angina, palpitations. RESPIRATORY SYSTEM: As mentioned earlier. GI: As mentioned earlier. : No dysuria or retention. NERVOUS SYSTEM: No numbness, weakness. CURRENT MEDICATIONS: Reviewed. They include: 1. Tylenol q.6 p.r.n. 2. Cefepime 1 gram q.8. 3. Dilaudid p.r.n. 4. Vancomycin IV. 5. IV fluids. PHYSICAL EXAMINATION: Patient is alert, oriented x3. The pulse is 135, blood pressure 116/78, respiration 13, temperature 99.9, pulse ox 93% on room air. HEENT: Conjunctivae normal. Oral mucosa moist. NECK: No jugular venous distention. No carotid bruit. No lymphadenopathy. CARDIOVASCULAR SYSTEM: S1, S2 muffled. Ejection systolic murmur. RESPIRATORY SYSTEM: Breath sounds diminished at the bases. A few scattered rhonchi. ABDOMEN: Soft. Distention and ascites present. No mass palpable. Non-tender. LEGS: Minimal edema. NERVOUS SYSTEM: Diffusely weak. LABS: Labs at this time show WBC 13.7, hemoglobin 7.8, sodium 139, potassium 4.3. ASSESSMENT: 1. Abdominal pain, fever, left axillary swelling with possible sepsis. 2. Rule out left axillary abscess. 3. Ovarian carcinoma with possible metastases. 4. Anemia; acute blood loss anemia. 5. Genitourinary bleed, possibly secondary to Eliquis. 6. History of pulmonary embolism. 7. Hyponatremia. 8. Increased white count. 9. History of gastroesophageal reflux disease. 10.Hypertension. 11.Hyperlipidemia. 12.History of myocardial infarction. 13.History of brain aneurysm. 14.History of lung cancer. 15.History of anxiety, panic disorder. 16.History of nicotine dependence. RECOMMENDATIONS AND DISCUSSION: In this 52-year-old woman who presented with multiple complex medical issues, we will monitor the patient closely, continue the current management, continue symptomatic treatment. Otherwise I will initiate broad-spectrum IV antibiotics. Continue to follow with multiple consultants. Closely monitor in the ICU at this time. Discussed with SALVAGE WINDER, Dr. Campbell, who recommended continued followup as well as possible followup with [facility]ST[facility] ERECTOR/ONC at [facility] after discharge and stabilization. Once again, the prognosis is guarded. Further recommendations to follow. As mentioned earlier, cultures are negative so far. Please see orders for further details. Will hold antiplatelet agents also. Also recommend frequent hemoglobin estimations and p.r.n. blood transfusion if the hemoglobin drops to less than 7. Patient is being closely monitored in the ICU at this time. MMODL / IJN: [id number] /
--- NOTE | 2018-08-16 19:38 | P.CONS ---
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 The patient was recently started on anticoagulation for treatment of a DVT. She reports vaginal bleeding after starting therapy with the anticoagulant. She also reports vague abdominal pain described as the feeling of distention and bloating. The patient has previously undergone a paracentesis in July on her prior admission with 5.9 L removed initially and 1.8 L removed on the subsequent paracentesis. Fluid studies at that time were consistent with carcinomatosis. The patient reports decreased oral intake and overall feeling weak. She describes a modified diet since receiving radiation therapy which was completed earlier in the year. Currently she is passing gas but having a little bowel movements which she attributes to the decreased oral intake. On presentation to the hospital the patient had a hemoglobin of 7.8 stable from 7.6, leukocytosis of 13.1, lipase 16, INR 1.3, total bilirubin 0.8, alkaline phosphatase 122, AST 29, ALT 21. No prior EGD or colonoscopy. She had a computed tomography scan of the abdomen which showed subsegmental atelectasis, abdominal ascites likely malignant in origin as well as a large cystic mass. Review of Systems REVIEW OF SYSTEMS: CONSTITUTIONAL: Fevers at home, and decreased oral intake secondary to his radiation therapy. CARDIOVASCULAR: Denies any chest pain, palpitations high or low blood pressures RESPIRATORY: Denies any shortness of breath, hemoptysis or cough. GENITOURINARY: No dysuria or hematuria, but does report vaginal bleeding. MUSCULOSKELETAL: No weakness reported. SKIN: Darkening skin in the area of radiation receives to the glottis. PSYCHIATRIC: Denies any depression or anxiety. NEUROLOGY: Denies headache, denies any new focal deficits. EARS/NOSE/THROAT: No recent hearing change, congestion, nasal discharge but does report a sore throat secondary to radiation therapy. EYES: No pain in eyes, discharge or change in vision. GASTROINTESTINAL: As per HPI. Past Medical History Past Medical History: Cancer, GERD/Reflux, Hyperlipidemia, Hypertension, Myocardial Infarction (AL) Additional Past Medical History / Comment(s): BRAIN ANEURSYM, LUNG CA, CARPAL TUNNEL RIGHT WRIST, throat CA dx apr 2018 Last Myocardial Infarction Date:: 04/30/2013 History of Any Multi-Drug Resistant Organisms: None Reported Past Surgical History: Heart Catheterization, Orthopedic Surgery, Tubal Ligation, Uterine Ablation Additional Past Surgical History / Comment(s): ANGIOPLASTY FOR BRAIN ANEURSYM, CARPEL TUNNEL RIGHT WRIST , and laparoscopy, PARTIAL RIGHT LUNG REMOVAL ,PTCA, Past Anesthesia/Blood Transfusion Reactions: No Reported Reaction Past Psychological History: Anxiety, Panic Disorder Smoking Status: Current some day smoker Past Alcohol Use History: None Reported Past Drug Use History: None Reported - Past Family History Mother Family Medical History: Cancer Father Family Medical History: Cancer Medications and Allergies Home Medications Medication Instructions Recorded Confirmed Type Atorvastatin [Lipitor] 80 mg PO DAILY 10/21/13 08/15/18 History Ondansetron Odt [Zofran ODT] 4 mg PO Q8HR PRN #10 tab 07/21/18 08/15/18 Rx oxyCODONE-APAP 10-325MG [Percocet 1 tab PO Q4HR PRN 07/29/18 08/15/18 History 10-325 mg] Apixaban [Eliquis] 5 mg PO BID #60 tab.ds.pk 08/02/18 08/15/18 Rx Folic Acid 1 mg PO DAILY 08/15/18 08/15/18 History Allergies Allergy/AdvReac Type Severity Reaction Status Date / Time Penicillins Allergy Unknown Verified 08/15/18 19:44 Childhood Physical Exam Vitals: Vital Signs Temp Pulse Pulse Pulse Resp BP BP 08/16/18 18:46 100.7 F H 128 H 20 102/68 08/16/18 18:00 126 H 12 94/60 08/16/18 16:00 99.0 F 126 H 18 109/72 08/16/18 14:49 101.3 F H 137 H 08/16/18 14:00 99.9 F H 135 H 13 116/78 08/16/18 12:00 98.8 F 113 H 14 99/65 08/16/18 10:00 120 H 16 119/73 08/16/18 09:48 99.4 F 121 H 16 119/73 08/16/18 08:00 101.5 F H 129 H 21 116/59 08/16/18 06:00 129 H 20 116/59 08/16/18 04:00 98.8 F 108 H 16 109/75 08/16/18 03:00 109 H 20 108/73 08/16/18 02:00 109 H 15 102/61 08/16/18 01:00 98.5 F 110 H 24 107/66 08/16/18 00:17 99.1 F 109 H 19 91/62 08/15/18 22:59 115 H 19 106/71 08/15/18 22:39 115 H 18 96/69 08/15/18 22:08 100.1 F H 120 H 18 90/60 08/15/18 21:08 99.5 F 123 H 18 101/62 Pulse Ox 08/16/18 18:46 94 L 08/16/18 18:00 96 08/16/18 16:00 91 L 08/16/18 14:49 08/16/18 14:00 93 L 08/16/18 12:00 93 L 08/16/18 10:00 95 08/16/18 09:48 93 L 08/16/18 08:00 98 08/16/18 06:00 99 08/16/18 04:00 100 08/16/18 03:00 100 08/16/18 02:00 100 08/16/18 01:00 100 08/16/18 00:17 100 08/15/18 22:59 100 08/15/18 22:39 100 08/15/18 22:08 100 08/15/18 21:08 100 Intake and Output 08/16/18 08/16/18 08/16/18 06:59 14:59 22:59 Intake Total 2800 1910 840 Output Total 500 775 200 Balance 2300 1135 640 Intake: IV 1550 600 Cefepime 1 gm In Sodium 50 Chloride 0.9% 50 ml @ 100 mls/hr IVPB Q8H [facility] Rx#: [id number] Lactated Ringers 1,000 ml 1000 @ 999 mls/hr IV .Q1H1M [facility] Rx#:[id number] Sodium Chloride 0.9% 1, 250 600 000 ml @ 100 mls/hr IV . Q10H [facility] Rx#:[id number] Vancomycin 1,500 mg In 250 Sodium Chloride 0.9% 250 ml @ 125 mls/hr IVPB Q12H [facility] Rx#:[id number] Intake, IV Titration 2800 Amount Cefepime 1 gm In Sodium 50 Chloride 0.9% 50 ml @ 100 mls/hr IVPB Q8H [facility] Rx#: [id number] Sodium Chloride 0.9% 1, 500 000 ml @ 100 mls/hr IV . Q10H [facility] Rx#:[id number] Sodium Chloride 0.9% 1, 1000 000 ml @ 999 mls/hr IV . Q1H1M [facility] Rx#:[id number] Sodium Chloride 0.9% 1, 1000 000 ml @ 999 mls/hr IV . Q1H1M [facility] Rx#:[id number] Vancomycin 1,500 mg In 250 Sodium Chloride 0.9% 250 ml @ 125 mls/hr IVPB Q12H [facility] Rx#:[id number] Oral 360 240 Output: Urine 500 775 200 Other: Voiding Method Bedpan Bedpan Bedpan Weight 86.5 kg 86.5 kg On physical examination, patient appears comfortable in no apparent distress. HEAD: Normocephalic, atraumatic. EYES: No scleral icterus. No conjunctival injection. MOUTH: Tongue midline. NECK: Trachea midline, darkening of skin over the neck area secondary to radiation therapy. CHEST: Decreased air entry in all lung cano. HEART: Regular rate and rhythm. ABDOMEN: Soft, obese, mildly tender to palpation with positive fluid wave. Bowel sounds are positive. No organomegaly. No guarding or rigidity. EXTREMITIES: No pedal edema. SKIN: No rashes, no jaundice. NEUROLOGIC: Alert and oriented x3. No focal deficits. Results CBC & Chem 7: 08/16/18 16:21 08/16/18 05:47 Labs: Abnormal Lab Results - Last 24 Hours (Table) 08/15/18 08/15/18 08/15/18 Range/Units 19:25 19:25 20:25 WBC 16.8 H (3.8-10.6) k/uL RBC 3.71 L (3.80-5.40) m/uL Hgb 10.0 L (11.4-16.0) gm/dL Hct 31.4 L (34.0-46.0) % Plt Count 499 H (150-450) k/uL Neutrophils # 14.7 H (1.3-7.7) k/uL Lymphocytes # 0.8 L (1.0-4.8) k/uL PT (9.0-12.0) sec INR (<1.2) Sodium 136 L (137-145) mmol/L Chloride (98-107) mmol/L Carbon Dioxide 20 L (22-30) mmol/L Glucose 101 H (74-99) mg/dL POC Glucose (mg/dL) (75-99) mg/dL Calcium (8.4-10.2) mg/dL Albumin 2.8 L (3.5-5.0) g/dL Lipase 16 L (23-300) U/L Ur Specific [place] (1.001-1.035) Urine Protein (Negative) Urine Ketones (Negative) Urine Blood (Negative) Ur Leukocyte Esterase (Negative) Urine RBC (0-5) /hpf Urine Bacteria (None) /hpf 08/15/18 08/15/18 08/16/18 Range/Units 20:25 22:22 00:20 WBC 13.0 H (3.8-10.6) k/uL RBC 2.74 L (3.80-5.40) m/uL Hgb 7.6 L D (11.4-16.0) gm/dL Hct 23.2 L (34.0-46.0) % Plt Count (150-450) k/uL Neutrophils # 11.1 H (1.3-7.7) k/uL Lymphocytes # 0.6 L (1.0-4.8) k/uL PT 13.1 H (9.0-12.0) sec INR 1.3 H (<1.2) Sodium (137-145) mmol/L Chloride (98-107) mmol/L Carbon Dioxide (22-30) mmol/L Glucose (74-99) mg/dL POC Glucose (mg/dL) (75-99) mg/dL Calcium (8.4-10.2) mg/dL Albumin (3.5-5.0) g/dL Lipase (23-300) U/L Ur Specific [place] >1.050 H (1.001-1.035) Urine Protein Trace H (Negative) Urine Ketones 1+ H (Negative) Urine Blood Large H (Negative) Ur Leukocyte Esterase Trace H (Negative) Urine RBC >182 H (0-5) /hpf Urine Bacteria Rare H (None) /hpf 08/16/18 08/16/18 08/16/18 Range/Units 00:57 05:47 05:47 WBC 13.7 H (3.8-10.6) k/uL RBC 2.85 L (3.80-5.40) m/uL Hgb 7.8 L (11.4-16.0) gm/dL Hct 24.5 L (34.0-46.0) % Plt Count (150-450) k/uL Neutrophils # 12.1 H (1.3-7.7) k/uL Lymphocytes # 0.6 L (1.0-4.8) k/uL PT (9.0-12.0) sec INR (<1.2) Sodium (137-145) mmol/L Chloride 110 H (98-107) mmol/L Carbon Dioxide 21 L (22-30) mmol/L Glucose 105 H (74-99) mg/dL POC Glucose (mg/dL) 109 H (75-99) mg/dL Calcium 8.2 L (8.4-10.2) mg/dL Albumin (3.5-5.0) g/dL Lipase (23-300) U/L Ur Specific [place] (1.001-1.035) Urine Protein (Negative) Urine Ketones (Negative) Urine Blood (Negative) Ur Leukocyte Esterase (Negative) Urine RBC (0-5) /hpf Urine Bacteria (None) /hpf 08/16/18 Range/Units 16:21 WBC 14.1 H (3.8-10.6) k/uL RBC 2.66 L (3.80-5.40) m/uL Hgb 7.6 L (11.4-16.0) gm/dL Hct 22.0 L (34.0-46.0) % Plt Count (150-450) k/uL Neutrophils # 12.5 H (1.3-7.7) k/uL Lymphocytes # 0.5 L (1.0-4.8) k/uL PT (9.0-12.0) sec INR (<1.2) Sodium (137-145) mmol/L Chloride (98-107) mmol/L Carbon Dioxide (22-30) mmol/L Glucose (74-99) mg/dL POC Glucose (mg/dL) (75-99) mg/dL Calcium (8.4-10.2) mg/dL Albumin (3.5-5.0) g/dL Lipase (23-300) U/L Ur Specific [place] (1.001-1.035) Urine Protein (Negative) Urine Ketones (Negative) Urine Blood (Negative) Ur Leukocyte Esterase (Negative) Urine RBC (0-5) /hpf Urine Bacteria (None) /hpf CT scan - abdomen: report reviewed (computed tomography scan of the abdomen which showed subsegmental atelectasis, abdominal ascites likely malignant in o rigin as well as a large cystic mass) Assessment and Plan (1) Malignant ascites Narrative/Plan: Patient with known history of metastatic lung cancer with malignant ascites identified on paracentesis during the patient's last admission, with a ascitic fluid removed on 2 occasions the first with 5.9 L removed and the second with 1.8 L removed both in July. At this time lab evaluation was not consistent with spontaneous bacterial peritonitis and cytology was consistent with malignant ascites. Patient presents back to the hospital complaining of abdominal discomfort with subjective fevers at home and has been started empirically on treatment of possible spontaneous bacterial peritonitis. Current Visit: No Status: Acute Code(s): R18.0 - MALIGNANT ASCITES SNOMED Code(s): 547428612 (2) Abdominal pain Narrative/Plan: Secondary to above Current Visit: Yes Status: Acute Code(s): R10.9 - UNSPECIFIED ABDOMINAL PAIN SNOMED Code(s): 17703713 (3) Metastatic lung cancer (metastasis from lung to other site) Current Visit: Yes Status: Acute Priority: High Code(s): C34.90 - MALIGNANT NEOPLASM OF UNSP PART OF UNSP BRONCHUS OR LUNG SNOMED Code(s): 99564745 Plan: Supportive care Okay for diet Patient will need repeat paracentesis given concern for spontaneous bacterial peritonitis, however patient was identified to have an abscess in the axilla which may be the source of her fevers with a ascitic fluid secondary to carcinomatosis Infectious disease service is following Agree with empiric antibiotic treatment Continue ICU management Thank you for allowing us to participate in the care of the patient we will continue to follow
--- NOTE | 2018-08-16 21:51 | P.CON ---
Consult Note - . Consult date: 08/16/18 Assessment/Plan:: This is a 52-year-old -[place] female who was diagnosed with adenocarcinoma in July 2015 status post surgical intervention and she was advised for chemotherapy but had poor follow-up. 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 At that time she was advised that cancer was not curable and treatment would be to prolong life and palliation of symptoms. There was also concern at that time for ovarian mass. She was also found to have a pulmonary embolism and started on eliquis. Last paracentesis done on August 01 1.8 L of fluid was removed. No cultures were obtained at that time. Previous to that, patient had a paracentesis on July 27 with removal of 5.8 L and cultures have been finalized from that specimen with no growth. Fungal culture is in process. Patient apparently has had vaginal bleeding since she started the eliquis with gradual increase in the amount of the bleeding as well as large clots. She complains of feeling cold but did not check her temperature at home. She denies any chest pain, shortness of breath, cough or sputum production, dysuria. She does complain of diffuse abdominal pain but states her abdominal size as less then prior to last paracentesis. Patient presented with signs of sepsis with fever of 102.3, sinus tachycardia in the 140s, leukocytosis 16.8. Her hemoglobin was 7.8, creatinine 0.6 Enrique. Amylase and Lipase was normal. Influenza testing negative. Liver function tests normal. Troponin negative and albumin 2.8. Urinalysis revealed blood large, nitrate negative, leukoesterase trace, RBCs greater than 182. Transvaginal ultrasound showed large complex mass bilateral adnexa 14.5 x 7.4 x 11 x 2. Chest x-ray shows no acute lung disease. Right upper lobe emphysema with no change. Abdomen pelvis CAT scan revealed subsegmental atelectasis, multiple low density liver lesions more numerous from last study. Abdominal ascites with omental density consistent with malignant ascites and carcinomatosis. Unchanged. 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 This appears not significantly different than last exam. Patient was admitted to the intensive care unit and started on cefepime and vancomycin. Consults are in place with GI, oncology and gynecology. Please see the consult note is dictated by nurse practitioner Mrs. Octavia Brown. 52 year old woman with several cancers who recently has completed a course of radiation therapy for her glottis cancer. She however is having recurrent ascites requiring paracentesis for comfort. She presents to hospital with high- grade fever up to 102.3 feeling very poorly. She has noted she has evidence of ascites, large complex abdominal mass. Upon presentation into the intensive care unit she has fever and anemia. Patient is also complaining of some tende rness in the left axillary area. With manipulation it does not drain and is quite tender. The plan for now will be antibiotic therapy with cefepime and vancomycin while cultures are pending. Oncology follow-up for delineate any particular plans. Unclear if there will be any surgical interventions are chemotherapy options here in the near future. I agree with evaluation, assessment and plan as dictated by nurse practitioner Mrs. Octavia Brown.
[2018-08-16] MEDS: ALPRAZolam 0.25 MG TAB PO SCH (22:08)
[2018-08-17] MEDS: VANCOMYCIN 1,500 MG in SODIUM CHLORIDE 0.9% 250 ML IVPB SCH ×3 (00:10→23:59)
[2018-08-17] MEDS: ACETAMINOPHEN TAB 325 MG TAB PO PRN ×3 (00:12→17:34)
--- NOTE | 2018-08-17 00:30 | P.CONS ---
History of Present Illness - Reason for Consult Consult date: 08/16/18 multiple maligancies Requesting physician: Marii Hutchison - Chief Complaint fever - History of Present Illness Please see Medical consult dated 07/30/18-18 days ago- for full details of malignancy history. Pt is a very pleasant AA female pt of Dr. Fatima with a history of early stage lung cancer that she did not have treatment for, then a diagnosis of laryngeal cancer for which she did have treatment for this. On 07/30 she was diagnosed with a LLL PE and started on eliquis. She had ascites with paracentesis performed on 07/29 and liver biopsy on 08/01, both specimens were positive for malignant cells consistent with a lung primary. She presented to the hospital with a fever, T max today 102.3F, she was recently treated for influenza. Appetite is fair, energy levels poors, does have residual odynophagia from treatment for laryngeal cancer, lacks saliva and taste , she is SOB with minimal exertion, mild abd distension, she is having vaginal bleeding, persistent, no chest pain, swelling, dysuria, hematuria, diarrhea, constipation, hematochezia or melena. Review of Systems 14 point ROS is as stated in HPI Past Medical History Past Medical History: Cancer, GERD/Reflux, Hyperlipidemia, Hypertension, Myocardial Infarction ([place]) Additional Past Medical History / Comment(s): BRAIN ANEURSYM, LUNG CA, CARPAL TUNNEL RIGHT WRIST, throat CA dx apr 2018 Last Myocardial Infarction Date:: 04/30/2013 History of Any Multi-Drug Resistant Organisms: None Reported Past Surgical History: Heart Catheterization, Orthopedic Surgery, Tubal Ligation, Uterine Ablation Additional Past Surgical History / Comment(s): ANGIOPLASTY FOR BRAIN ANEURSYM, CARPEL TUNNEL RIGHT WRIST , and laparoscopy, PARTIAL RIGHT LUNG REMOVAL ,PTCA, Past Anesthesia/Blood Transfusion Reactions: No Reported Reaction Past Psychological History: Anxiety, Panic Disorder Smoking Status: Former smoker Past Alcohol Use History: None Reported Additional Past Alcohol Use History / Comment(s): Patient was a smoker and quit in April 2018. She denies any marijuana, illicit drug use or alcohol use. Her daughter is living with her. She is on disability. Past Drug Use History: None Reported - Past Family History Mother Family Medical History: Cancer Father Family Medical History: Cancer Medications and Allergies Home Medications Medication Instructions Recorded Confirmed Type Atorvastatin [Lipitor] 80 mg PO DAILY 10/21/13 08/15/18 History Ondansetron Odt [Zofran ODT] 4 mg PO Q8HR PRN #10 tab 07/21/18 08/15/18 Rx oxyCODONE-APAP 10-325MG [Percocet 1 tab PO Q4HR PRN 07/29/18 08/15/18 History 10-325 mg] Apixaban [Eliquis] 5 mg PO BID #60 tab.ds.pk 08/02/18 08/15/18 Rx Folic Acid 1 mg PO DAILY 08/15/18 08/15/18 History Allergies Allergy/AdvReac Type Severity Reaction Status Date / Time Penicillins Allergy Unknown Verified 08/15/18 19:44 Childhood Physical Exam Vitals: Vital Signs Temp Pulse Pulse Resp BP BP Pulse Ox 08/16/18 08:00 101.5 F H 129 H 21 116/59 98 08/16/18 06:00 129 H 20 116/59 99 08/16/18 04:00 98.8 F 108 H 16 109/75 100 08/16/18 03:00 109 H 20 108/73 100 08/16/18 02:00 109 H 15 102/61 100 08/16/18 01:00 98.5 F 110 H 24 107/66 100 08/16/18 00:17 99.1 F 109 H 19 91/62 100 08/15/18 22:59 115 H 19 106/71 100 08/15/18 22:39 115 H 18 96/69 100 08/15/18 22:08 100.1 F H 120 H 18 90/60 100 08/15/18 21:08 99.5 F 123 H 18 101/62 100 08/15/18 19:18 102.3 F H 149 H 20 99/69 100 08/15/18 18:52 101.3 F H 146 H 18 103/70 97 Intake and Output 08/15/18 08/16/18 08/16/18 22:59 06:59 14:59 Intake Total 2800 200 Output Total 500 300 Balance 2300 -100 Intake: IV 200 Sodium Chloride 0.9% 1, 200 000 ml @ 100 mls/hr IV . Q10H [facility] Rx#:[id number] Intake, IV Titration 2800 Amount Cefepime 1 gm In Sodium 50 Chloride 0.9% 50 ml @ 100 mls/hr IVPB Q8H [facility] Rx#: [id number] Sodium Chloride 0.9% 1, 500 000 ml @ 100 mls/hr IV . Q10H [facility] Rx#:[id number] Sodium Chloride 0.9% 1, 1000 000 ml @ 999 mls/hr IV . Q1H1M [facility] Rx#:[id number] Sodium Chloride 0.9% 1, 1000 000 ml @ 999 mls/hr IV . Q1H1M [facility] Rx#:[id number] Vancomycin 1,500 mg In 250 Sodium Chloride 0.9% 250 ml @ 125 mls/hr IVPB Q12H [facility] Rx#:[id number] Output: Urine 500 300 Other: Voiding Method Bedpan Bedpan Weight 77.111 kg 86.5 kg - Constitutional General appearance: average body habitus, cooperative, mild distress - EENT dry mucus membranes Eyes: anicteric sclerae, EOMI ENT: hearing grossly normal - Neck Neck: no lymphadenopathy - Respiratory Respiratory: bilateral: CTA - Cardiovascular Heart sounds: normal: S1, S2 - Gastrointestinal General gastrointestinal: no absent bowel sounds, no decreased bowel sounds, distended, no hepatomegaly, no hyperactive bowel sounds, normal bowel sounds, no organomegaly, no rigid, no scaphoid, soft, no splenomegaly, tenderness, no umbilical hernia, no ventral hernia - Integumentary Integumentary: normal - Neurologic Neurologic: CNII-XII intact - Musculoskeletal Musculoskeletal: generalized weakness, strength equal bilaterally - Psychiatric Psychiatric: A&O x's 3, appropriate affect, intact judgment & insight Results CBC & Chem 7: 08/16/18 16:21 08/16/18 05:47 Labs: Abnormal Lab Results - Last 24 Hours (Table) 08/15/18 08/15/18 08/15/18 Range/Units 19:25 19:25 20:25 WBC 16.8 H (3.8-10.6) k/uL RBC 3.71 L (3.80-5.40) m/uL Hgb 10.0 L (11.4-16.0) gm/dL Hct 31.4 L (34.0-46.0) % Plt Count 499 H (150-450) k/uL Neutrophils # 14.7 H (1.3-7.7) k/uL Lymphocytes # 0.8 L (1.0-4.8) k/uL PT (9.0-12.0) sec INR (<1.2) Sodium 136 L (137-145) mmol/L Chloride (98-107) mmol/L Carbon Dioxide 20 L (22-30) mmol/L Glucose 101 H (74-99) mg/dL POC Glucose (mg/dL) (75-99) mg/dL Calcium (8.4-10.2) mg/dL Albumin 2.8 L (3.5-5.0) g/dL Lipase 16 L (23-300) U/L Ur Specific [place] (1.001-1.035) Urine Protein (Negative) Urine Ketones (Negative) Urine Blood (Negative) Ur Leukocyte Esterase (Negative) Urine RBC (0-5) /hpf Urine Bacteria (None) /hpf 08/15/18 08/15/18 08/16/18 Range/Units 20:25 22:22 00:20 WBC 13.0 H (3.8-10.6) k/uL RBC 2.74 L (3.80-5.40) m/uL Hgb 7.6 L D (11.4-16.0) gm/dL Hct 23.2 L (34.0-46.0) % Plt Count (150-450) k/uL Neutrophils # 11.1 H (1.3-7.7) k/uL Lymphocytes # 0.6 L (1.0-4.8) k/uL PT 13.1 H (9.0-12.0) sec INR 1.3 H (<1.2) Sodium (137-145) mmol/L Chloride (98-107) mmol/L Carbon Dioxide (22-30) mmol/L Glucose (74-99) mg/dL POC Glucose (mg/dL) (75-99) mg/dL Calcium (8.4-10.2) mg/dL Albumin (3.5-5.0) g/dL Lipase (23-300) U/L Ur Specific [place] >1.050 H (1.001-1.035) Urine Protein Trace H (Negative) Urine Ketones 1+ H (Negative) Urine Blood Large H (Negative) Ur Leukocyte Esterase Trace H (Negative) Urine RBC >182 H (0-5) /hpf Urine Bacteria Rare H (None) /hpf 08/16/18 08/16/18 08/16/18 Range/Units 00:57 05:47 05:47 WBC 13.7 H (3.8-10.6) k/uL RBC 2.85 L (3.80-5.40) m/uL Hgb 7.8 L (11.4-16.0) gm/dL Hct 24.5 L (34.0-46.0) % Plt Count (150-450) k/uL Neutrophils # 12.1 H (1.3-7.7) k/uL Lymphocytes # 0.6 L (1.0-4.8) k/uL PT (9.0-12.0) sec INR (<1.2) Sodium (137-145) mmol/L Chloride 110 H (98-107) mmol/L Carbon Dioxide 21 L (22-30) mmol/L Glucose 105 H (74-99) mg/dL POC Glucose (mg/dL) 109 H (75-99) mg/dL Calcium 8.2 L (8.4-10.2) mg/dL Albumin (3.5-5.0) g/dL Lipase (23-300) U/L Ur Specific [place] (1.001-1.035) Urine Protein (Negative) Urine Ketones (Negative) Urine Blood (Negative) Ur Leukocyte Esterase (Negative) Urine RBC (0-5) /hpf Urine Bacteria (None) /hpf Abdominal x-ray: report reviewed CT scan - abdomen: report reviewed CT scan - pelvis: report reviewed Assessment and Plan (1) Fever, unknown origin Narrative/Plan: Cultures pending, ID consulted, empiric abx. Current Visit: Yes Status: Acute Priority: High Code(s): R50.9 - FEVER, UNSPECIFIED SNOMED Code(s): 4722720 (2) Metastatic lung cancer (metastasis from lung to other site) Narrative/Plan: Diagnosed with metastatic lung cancer in the last 2 weeks. Pending molecular studies to see if there is a mutation for targeted therapy. Current Visit: Yes Status: Acute Priority: High Code(s): C34.90 - MALIGNANT NEOPLASM OF UNSP PART OF UNSP BRONCHUS OR LUNG SNOMED Code(s): 28235767 (3) Vaginal bleeding Narrative/Plan: Rn Hospital consulted. Eliquis stoped due to precipitous drop in Hgb, close monitoring for bleeding, Hgb monitoring. Transfuse for Hgb<7 or if symptomatic. May have to consider IVC filter if unable to resume anticoagulation Current Visit: Yes Status: Acute Priority: High Code(s): N93.9 - ABNORMAL UTERINE AND VAGINAL BLEEDING, UNSPECIFIED SNOMED Code(s): 664620580 (4) Pulmonary emboli Narrative/Plan: Diagnosed 07/29. In the setting of metastatic disease and very recent diagnosis of PE may need to consider IVC filter. Will await Rn Hospital consult and recommendations regarding the vaginal bleeding. Current Visit: Yes Status: Acute Priority: High Code(s): I26.99 - OTHER PULMONARY EMBOLISM WITHOUT ACUTE COR PULMONALE SNOMED Code(s): 32352432 Plan: Attests: I have performed H&P and developed impression and plan of care of patient, discussed with dictator. I agree with dictated note, documented as a scribe.
[2018-08-17] MEDS: CEFEPIME 1 GM in SODIUM CHLORIDE 0.9% 50 ML IVPB SCH ×3 (05:40→21:44)
[2018-08-17] MEDS: SODIUM CHLORIDE 0.9% 1,000 ML IV SCH (05:41)
[2018-08-17 06:18] LABS: Basophils % (A) 0 %; Eosinophils % (A) 0 %; HCT 24.2 % (34.0-46.0); HGB 7.6 gm/dL (11.4-16.0); Hypochromasia Slight; Lymphocytes # (A) 0.5 k/uL (1.0-4.8); Lymphocytes % (A) 4 %; MCH 26.5 pg (25.0-35.0); MCHC 31.5 g/dL (31.0-37.0); MCV 84.4 fL (80.0-100.0); Mean Platelet Volume 9.1; Monocytes # (A) 0.5 k/uL (0-1.0); Monocytes % (A) 3 %; Neutrophils # (A) 12.4 k/uL (1.3-7.7); Neutrophils % (A) 92 %; Platelet Count 371 k/uL (150-450); RBC 2.87 m/uL (3.80-5.40); RDW 15.1 % (11.5-15.5); WBC 13.5 k/uL (3.8-10.6)
[2018-08-17 06:38] LABS: Anion Gap 8 mmol/L; Blood Urea Nitrogen 8 mg/dL (7-17); Calcium 8.1 mg/dL (8.4-10.2); Carbon Dioxide 21 mmol/L (22-30); Chloride 109 mmol/L (98-107); Glucose 85 mg/dL (74-99); Potassium 4.4 mmol/L (3.5-5.1); Sodium 138 mmol/L (137-145)
[2018-08-17] MEDS: HYDROmorphone 0.5 MG/0.5 ML SYRINGE IVP PRN ×2 (08:17→23:01)
[2018-08-17] MEDS: PANTOPRAZOLE 40 MG/10 ML VIAL IVP SCH (09:56)
[2018-08-17] MEDS: ALPRAZolam 0.25 MG TAB PO SCH ×2 (09:58→22:54)
[2018-08-17] MEDS: ATORVASTATIN 80 MG TAB PO SCH (09:58)
[2018-08-17] MEDS: FOLIC ACID 1 MG TAB PO SCH (09:59)
[2018-08-17] MEDS ORDERED: VANCOMYCIN TROUGH DUE 1 EACH MISC MISCELLANE ONE (10:00)
--- NOTE | 2018-08-17 10:30 | US ---
EXAMINATION TYPE: US abdomen limited DATE OF EXAM: 08/17/2018 COMPARISON: Prior CT 08/15/2017 CLINICAL HISTORY: ascites. Ascites check for possible paracentesis Small amount of ascites visualized with portions appearing loculated. IMPRESSION: Small amount of loculated ascites
[2018-08-17 14:59] LABS: Reticulocyte % 1.6 % (0.5-2.0)
--- NOTE | 2018-08-17 15:28 | P.PN ---
Subjective Progress Note Date: 08/17/18 CHIEF COMPLAINT: Left axilla abscess HISTORY OF PRESENT ILLNESS: Patient seen and examined at the bedside. Patient underwent ultrasound yesterday which revealed loculated heterogeneous collection with surrounding hyperemia and posterior through transmission measuring 2.9 x 2.81.4 cm located at the site of concern a left axilla. PHYSICAL EXAM: VITAL SIGNS: Reviewed. GENERAL: Well-developed in no acute distress. HEENT: No sclera icterus. Extraocular movements grossly intact. Moist buccal mucosa. Head is atraumatic, normocephalic. ABDOMEN: Soft. Nondistended. Nontender. NEUROLOGIC: Alert and oriented. Cranial nerves II through XII grossly intact. SKIN: Small mass of left axilla. No drainage. No surrounding firmness or warmth. No erythema. No drainage. Extreme tenderness to light palpation of left axillary region. ASSESSMENT: 1. Left axillary abscess PLAN: 1. Dr. Quevedo spoke with patient at the bedside. Dr. Quevedo recommends bedside I&D of left axillary mass. Patient agreeable. 2. Dr. Quevedo performed bedside I&D. Patient tolerated procedure well. Purulent drainage cultured. 3. Gauze dressing to the left axilla. Change dressing daily and PRN Nurse practitioner note has been reviewed by physician. Signing provider agrees with the documented findings, assessment, and plan of care. Objective - Vital Signs Vital signs: Vital Signs Temp 98.5 F 08/17/18 08:00 Pulse 121 H 08/17/18 10:00 Resp 21 08/17/18 10:00 BP 102/63 08/17/18 10:00 Pulse Ox 96 08/17/18 10:00 Intake & Output 08/16/18 08/17/18 08/17/18 18:59 06:59 18:59 Intake Total 2750 550 350 Output Total 975 450 Balance 1775 100 350 Weight 86.5 kg 87.6 kg Intake: IV 2150 550 350 Cefepime 1 gm In Sodium 50 50 Chloride 0.9% 50 ml @ 100 mls/hr IVPB Q8H [facility] Rx#: [id number] Lactated Ringers 1,000 ml 1000 @ 999 mls/hr IV .Q1H1M [facility] Rx#:[id number] Sodium Chloride 0.9% 1, 850 500 100 000 ml @ 100 mls/hr IV . Q10H [facility] Rx#:[id number] Vancomycin 1,500 mg In 250 250 Sodium Chloride 0.9% 250 ml @ 125 mls/hr IVPB Q12H [facility] Rx#:[id number] Oral 600 Output: Urine 975 450 Other: Voiding Method Bedpan Bedpan Toilet # Voids 2 - Labs CBC & Chem 7: 08/17/18 05:20 08/17/18 05:20 Labs: Abnormal Lab Results - Last 24 Hours (Table) 08/16/18 08/17/18 08/17/18 Range/Units 16:21 05:20 05:20 WBC 14.1 H 13.5 H (3.8-10.6) k/uL RBC 2.66 L 2.87 L (3.80-5.40) m/uL Hgb 7.6 L 7.6 L (11.4-16.0) gm/dL Hct 22.0 L 24.2 L (34.0-46.0) % Neutrophils # 12.5 H 12.4 H (1.3-7.7) k/uL Lymphocytes # 0.5 L 0.5 L (1.0-4.8) k/uL Chloride 109 H (98-107) mmol/L Carbon Dioxide 21 L (22-30) mmol/L Calcium 8.1 L (8.4-10.2) mg/dL Lactate Dehydrogenase (313-618) U/L 08/17/18 Range/Units 05:20 WBC (3.8-10.6) k/uL RBC (3.80-5.40) m/uL Hgb (11.4-16.0) gm/dL Hct (34.0-46.0) % Neutrophils # (1.3-7.7) k/uL Lymphocytes # (1.0-4.8) k/uL Chloride (98-107) mmol/L Carbon Dioxide (22-30) mmol/L Calcium (8.4-10.2) mg/dL Lactate Dehydrogenase 678 H (313-618) U/L Microbiology - Last 24 Hours (Table) 08/15/18 20:25 Blood Culture - Preliminary Blood No Growth after 24 hours 08/16/18 18:50 Urine Culture - Preliminary Urine,Clean Catch
[2018-08-17] MEDS ORDERED: METOCLOPRAMIDE 5 MG/ML 2 ML VIAL IVP PRN (16:17)
--- NOTE | 2018-08-17 17:14 | P.PN ---
Subjective Progress Note Date: 08/17/18 Principal diagnosis: Ascites The patient is seen lying in bed today. Denying any abdominal pain. She reports that she has not eaten today due to decrease appetite. She states that a large part of her decrease in appetite is due to dysgeusia which occurred after receiving radiation therapy. Objective - Vital Signs Vital signs: Vital Signs Temp 99.3 F 08/17/18 16:00 Pulse 137 H 08/17/18 16:00 Resp 14 08/17/18 16:00 BP 110/72 08/17/18 16:00 Pulse Ox 94 L 08/17/18 16:00 Intake & Output 08/16/18 08/17/18 08/17/18 18:59 06:59 18:59 Intake Total 2750 550 590 Output Total 975 450 Balance 1775 100 590 Weight 86.5 kg 87.6 kg Intake: IV 2150 550 350 Cefepime 1 gm In Sodium 50 50 Chloride 0.9% 50 ml @ 100 mls/hr IVPB Q8H [facility] Rx#: [id number] Lactated Ringers 1,000 ml 1000 @ 999 mls/hr IV .Q1H1M [facility] Rx#:[id number] Sodium Chloride 0.9% 1, 850 500 100 000 ml @ 100 mls/hr IV . Q10H [facility] Rx#:[id number] Vancomycin 1,500 mg In 250 250 Sodium Chloride 0.9% 250 ml @ 125 mls/hr IVPB Q12H [facility] Rx#:[id number] Oral 600 240 Output: Urine 975 450 Other: Voiding Method Bedpan Bedpan Toilet # Voids 2 - Exam On physical examination, patient appears comfortable in no apparent distress. HEAD: Normocephalic, atraumatic. EYES: No scleral icterus. No conjunctival injection. MOUTH: No lesions, tongue midline. NECK: Trachea midline, darkening of skin in the area of radiation therapy. CHEST: Decreased air entry in all lung cano. ABDOMEN: Soft, obese. Bowel sounds are positive. No organomegaly. No guarding or rigidity. EXTREMITIES: No pedal edema. SKIN: No jaundice. NEUROLOGIC: Alert and oriented x3. No focal deficits. - Labs CBC & Chem 7: 08/17/18 05:20 08/17/18 05:20 Labs: Abnormal Lab Results - Last 24 Hours (Table) 08/16/18 08/17/18 08/17/18 Range/Units 16:21 05:20 05:20 WBC 14.1 H 13.5 H (3.8-10.6) k/uL RBC 2.66 L 2.87 L (3.80-5.40) m/uL Hgb 7.6 L 7.6 L (11.4-16.0) gm/dL Hct 22.0 L 24.2 L (34.0-46.0) % Neutrophils # 12.5 H 12.4 H (1.3-7.7) k/uL Lymphocytes # 0.5 L 0.5 L (1.0-4.8) k/uL Chloride 109 H (98-107) mmol/L Carbon Dioxide 21 L (22-30) mmol/L Calcium 8.1 L (8.4-10.2) mg/dL Lactate Dehydrogenase (313-618) U/L 08/17/18 Range/Units 05:20 WBC (3.8-10.6) k/uL RBC (3.80-5.40) m/uL Hgb (11.4-16.0) gm/dL Hct (34.0-46.0) % Neutrophils # (1.3-7.7) k/uL Lymphocytes # (1.0-4.8) k/uL Chloride (98-107) mmol/L Carbon Dioxide (22-30) mmol/L Calcium (8.4-10.2) mg/dL Lactate Dehydrogenase 678 H (313-618) U/L Microbiology - Last 24 Hours (Table) 08/15/18 20:25 Blood Culture - Preliminary Blood No Growth after 24 hours 08/16/18 18:50 Urine Culture - Preliminary Urine,Clean Catch Assessment and Plan (1) Malignant ascites Narrative/Plan: Patient with known history of metastatic lung cancer with malignant ascites identified on paracentesis during the patient's last admission, with a ascitic fluid removed on 2 occasions the first with 5.9 L removed and the second with 1.8 L removed both in July. At this time lab evaluation was not consistent with spontaneous bacterial peritonitis and cytology was consistent with malignant ascites. Patient presents back to the hospital complaining of abdominal discomfort with subjective fevers. Current Visit: No Status: Acute Code(s): R18.0 - MALIGNANT ASCITES SNOMED Code(s): 159926590 (2) Abdominal pain Narrative/Plan: Secondary to above Current Visit: Yes Status: Acute Code(s): R10.9 - UNSPECIFIED ABDOMINAL PAIN SNOMED Code(s): 23899306 (3) Metastatic lung cancer (metastasis from lung to other site) Current Visit: Yes Status: Acute Priority: High Code(s): C34.90 - MALIGNANT NEOPLASM OF UNSP PART OF UNSP BRONCHUS OR LUNG SNOMED Code(s): 17355891 Plan: Supportive care Okay for diet Patient was sent for paracentesis, however only small pockets of ascites seen, ascitic fluid secondary to carcinomatosis Infectious disease service is following Agree with empiric antibiotic treatment Continue ICU management Thank you for allowing us to participate in the care of the patient we will continue to follow
[2018-08-17 19:12] LABS: HCT 21.4 % (34.0-46.0); Hypochromasia Slight; MCH 26.5 pg (25.0-35.0); MCHC 32.4 g/dL (31.0-37.0); Mean Platelet Volume 9.9; Platelet Count 333 k/uL (150-450); Poikilocytosis Slight; RDW 15.9 % (11.5-15.5); WBC 13.1 k/uL (3.8-10.6)
[2018-08-17 19:39] LABS: HGB 6.9 gm/dL (11.4-16.0)
[2018-08-17] MEDS ORDERED: HEPARIN SODIUM,PORCINE 5,000 UNIT/ML 1 ML VIAL IV PRN (21:33)
[2018-08-17] MEDS: METOPROLOL TARTRATE 12.5 MG TAB PO SCH (21:45)
--- NOTE | 2018-08-17 22:03 | P.PN ---
Subjective Progress Note Date: 08/17/18 Principal diagnosis: Lung Cancer Still with low grade fevers, Infectious Disease is following. Objective - Vital Signs Vital signs: Vital Signs - Exam - Constitutional General appearance: average body habitus, cooperative, mild distress - EENT dry mucus membranes Eyes: anicteric sclerae, EOMI ENT: hearing grossly normal - Neck Neck: no lymphadenopathy - Respiratory Respiratory: bilateral: CTA - Cardiovascular Heart sounds: normal: S1, S2 - Gastrointestinal General gastrointestinal: no absent bowel sounds, no decreased bowel sounds, distended, no hepatomegaly, no hyperactive bowel sounds, normal bowel sounds, no organomegaly, no rigid, no scaphoid, soft, no splenomegaly, tenderness, no umbilical hernia, no ventral hernia - Integumentary Integumentary: normal - Neurologic Neurologic: CNII-XII intact - Musculoskeletal Musculoskeletal: generalized weakness, strength equal bilaterally - Psychiatric Psychiatric: A&O x's 3, appropriate affect, intact judgment & insight - Labs CBC & Chem 7: 08/17/18 18:46 08/17/18 05:20 Labs: Abnormal Lab Results - Last 24 Hours (Table) 08/16/18 08/17/18 08/17/18 Range/Units 16:21 05:20 05:20 WBC 14.1 H 13.5 H (3.8-10.6) k/uL RBC 2.66 L 2.87 L (3.80-5.40) m/uL Hgb 7.6 L 7.6 L (11.4-16.0) gm/dL Hct 22.0 L 24.2 L (34.0-46.0) % Neutrophils # 12.5 H 12.4 H (1.3-7.7) k/uL Lymphocytes # 0.5 L 0.5 L (1.0-4.8) k/uL Chloride 109 H (98-107) mmol/L Carbon Dioxide 21 L (22-30) mmol/L Calcium 8.1 L (8.4-10.2) mg/dL Microbiology - Last 24 Hours (Table) 08/15/18 20:25 Blood Culture - Preliminary Blood No Growth after 24 hours 08/16/18 18:50 Urine Culture - Preliminary Urine,Clean Catch Assessment and Plan Plan: Abdominal x-ray: report reviewed CT scan - abdomen: report reviewed CT scan - pelvis: report reviewed Assessment and Plan (1) Fever - Likely Secondary Left Axillary Boil/Abscess - Infectious Disease Following - Reviewed Surgical Note, no intervention at this time - Empiric antibiotics to continue Current Visit: Yes Status: Acute Priority: High Code(s): R50.9 - FEVER, UNSPECIFIED SNOMED Code(s): 3967329 (2) Metastatic lung cancer (metastasis from lung to other site) - Liver and ascites Fluid) - Recent Recurrence with diffuse Metastatic Disease - MRI Brain was ordered as outpatient for initial staging, she missed this secondary to hospitalization, will need to re-order at discharge - Awaiting Molecular tests on liver biopsy and recurrent ascites Current Visit: Yes Status: Acute Priority: High Code(s): C34.90 - MALIGNANT NEOPLASM OF UNSP PART OF UNSP BRONCHUS OR LUNG SNOMED Code(s): 96873271 (3) Vaginal bleeding - Lasting Room Supervisor consulted. - Eliquis stopped due to precipitous drop in Hgb, close monitoring for bleeding, Hgb monitoring. Transfuse for Hgb<7 or if symptomatic. - May have to consider IVC filter if unable to resume anticoagulation Current Visit: Yes Status: Acute Priority: High Code(s): N93.9 - ABNORMAL UTERINE AND VAGINAL BLEEDING, UNSPECIFIED SNOMED Code(s): 488382466 (4) Pulmonary emboli - Diagnosed 07/29. - In the setting of metastatic disease and very recent diagnosis of PE may need to consider IVC filter. - Will await Lasting Room Supervisor consult and recommendations regarding the vaginal bleeding. 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
[2018-08-17] MEDS: HEPARIN SOD,PORK IN 0.45% NACL 25,000 UNIT in 0.45% NACL 1 250ML.BAG IV SCH (22:13)
--- NOTE | 2018-08-17 22:24 | P.PN ---
Subjective Progress Note Date: 08/17/18 This is a 52-year-old -Citizen Of [place] female who was diagnosed with adenocarcinoma in July 2015 status post surgical intervention and she was advised for chemotherapy but had poor follow-up. 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 At that time she was advised that cancer was not curable and treatment would be to prolong life and palliation of symptoms. There was als o concern at that time for ovarian mass. She was also found to have a pulmonary embolism and started on eliquis. Last paracentesis done on August 01 1.8 L of fluid was removed. No cultures were obtained at that time. Previous to that, patient had a paracentesis on July 27 with removal of 5.8 L and cultures have been finalized from that specimen with no growth. Fungal culture is in process. Patient apparently has had vaginal bleeding since she started the eliquis with gradual increase in the amount of the bleeding as well as large clots. She complains of feeling cold but did not check her temperature at home. She denies any chest pain, shortness of breath, cough or sputum production, dysuria. She does complain of diffuse abdominal pain but states her abdominal size as less then prior to last paracentesis. Patient presented with signs of sepsis with fever of 102.3, sinus tachycardia in the 140s, leukocytosis 16.8. Her hemoglobin was 7.8, creatinine 0.6 Enrique. Lipase was normal. Influenza testing negative. Liver function tests normal. Troponin negative and albumin 2.8. Urinalysis revealed blood large, nitrate negative, leukoesterase trace, RBCs greater than 182. Transvaginal ultrasound showed large complex mass bilateral adnexa 14.5 x 7.4 x 11 x 2. Chest x-ray shows no acute lung disease. Right upper lobe emphysema with no change. Abdomen pelvis CAT scan revealed subsegmental atelectasis, multiple low density liver lesions more numerous from last study. Abdominal ascites with omental density consistent with malignant ascites and carcinomatosis. Unchanged. 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 This appears not significantly different than last exam. Patient was admitted to the intensive care unit and started on cefepime and vancomycin. Consults are in place with GI, oncology and gynecology. 08/17/2018 patient continues to feel poorly. Remains in intensive care unit and has been seen by multiple consultants. 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 The patient is able to drink boost but eats no other food. Objective - Vital Signs Vital signs: Vital Signs Temp 100.1 F H 08/17/18 20:00 Pulse 135 H 08/17/18 20:10 Resp 16 08/17/18 20:10 BP 114/67 08/17/18 20:10 Pulse Ox 95 08/17/18 20:10 Intake & Output 08/17/18 08/17/18 08/18/18 06:59 18:59 06:59 Intake Total 550 690 Output Total 450 Balance 100 690 Weight 87.6 kg Intake: IV 550 450 Cefepime 1 gm In Sodium 50 100 Chloride 0.9% 50 ml @ 100 mls/hr IVPB Q8H NA[facility] Rx#: [id number] Sodium Chloride 0.9% 1, 500 100 000 ml @ 100 mls/hr IV . Q10H [facility] Rx#:[id number] Vancomycin 1,500 mg In 250 Sodium Chloride 0.9% 250 ml @ 125 mls/hr IVPB Q12H [facility] Rx#:[id number] Oral 240 Blood Product 0 Rc As-1 Unit 0 [id number] Output: Urine 450 Other: Voiding Method Bedpan Toilet # Voids 2 1 - Exam Gen: This is a 52-year-old -Citizen Of [place] female. She is resting in ICU bed and appears to be comfortable and in no acute distress. HEENT: Head is atraumatic, normocephalic. Pupils equal, round. Sclerae is an icteric. Oral mucous membranes are moist. No erythema or edema of the oropharynx. Hoarseness noted. NECK: Supple. No JVD. No lymphadenopathy. No thyromegaly. LUNGS: Clear to auscultation. No wheezes or rhonchi. No intercostal retractions. HEART: Regular rate and rhythm. No murmur. ABDOMEN: Soft. Bowel sounds are present. No masses. Positive ascites. Generalized tenderness. EXTREMITIES: No pedal edema. No calf tenderness. Dorsalis pedis +2 bilaterally. NEUROLOGICAL: Patient is awake, alert and oriented x3 - Labs CBC & Chem 7: 08/17/18 18:46 08/17/18 05:20 Labs: Abnormal Lab Results - Last 24 Hours (Table) 08/15/18 08/17/18 08/17/18 Range/Units 19:25 05:20 05:20 WBC 13.5 H (3.8-10.6) k/uL RBC 2.87 L (3.80-5.40) m/uL Hgb 7.6 L (11.4-16.0) gm/dL Hct 24.2 L (34.0-46.0) % RDW (11.5-15.5) % Neutrophils # 12.4 H (1.3-7.7) k/uL Lymphocytes # 0.5 L (1.0-4.8) k/uL Chloride 109 H (98-107) mmol/L Carbon Dioxide 21 L (22-30) mmol/L Calcium 8.1 L (8.4-10.2) mg/dL Lactate Dehydrogenase (313-618) U/L Crossmatch See Detail 08/17/18 08/17/18 Range/Units 05:20 18:46 WBC 13.1 H (3.8-10.6) k/uL RBC 2.60 L (3.80-5.40) m/uL Hgb 6.9 L* (11.4-16.0) gm/dL Hct 21.4 L (34.0-46.0) % RDW 15.9 H (11.5-15.5) % Neutrophils # (1.3-7.7) k/uL Lymphocytes # (1.0-4.8) k/uL Chloride (98-107) mmol/L Carbon Dioxide (22-30) mmol/L Calcium (8.4-10.2) mg/dL Lactate Dehydrogenase 678 H (313-618) U/L Crossmatch Microbiology - Last 24 Hours (Table) 08/16/18 18:50 Urine Culture - Final Urine,Clean Catch 08/15/18 20:25 Blood Culture - Preliminary Blood No Growth after 24 hours Laboratory Results WBC 13.1 k/uL (3.8-10.6) H 08/17/18 18:46 RBC 2.60 m/uL (3.80-5.40) L 08/17/18 18:46 Hgb 6.9 gm/dL (11.4-16.0) L* 08/17/18 18:46 Hct 21.4 % (34.0-46.0) L 08/17/18 18:46 MCV 82.0 fL (80.0-100.0) 08/17/18 18:46 MCH 26.5 pg (25.0-35.0) 08/17/18 18:46 MCHC 32.4 g/dL (31.0-37.0) 08/17/18 18:46 RDW 15.9 % (11.5-15.5) H 08/17/18 18:46 Plt Count 333 k/uL (150-450) 08/17/18 18:46 Neutrophils % 92 % 08/17/18 05:20 Lymphocytes % 4 % 08/17/18 05:20 Monocytes % 3 % 08/17/18 05:20 Eosinophils % 0 % 08/17/18 05:20 Basophils % 0 % 08/17/18 05:20 Neutrophils # 12.4 k/uL (1.3-7.7) H 08/17/18 05:20 Lymphocytes # 0.5 k/uL (1.0-4.8) L 08/17/18 05:20 Monocytes # 0.5 k/uL (0-1.0) 08/17/18 05:20 Eosinophils # 0.0 k/uL (0-0.7) 08/17/18 05:20 Basophils # 0.0 k/uL (0-0.2) 08/17/18 05:20 Hypochromasia Slight 08/17/18 18:46 Poikilocytosis Slight 08/17/18 18:46 Retic Count 1.6 % (0.5-2.0) 08/17/18 05:20 PT 13.1 sec (9.0-12.0) H 08/15/18 20:25 INR 1.3 (<1.2) H 08/15/18 20:25 APTT 24.5 sec (22.0-30.0) 08/15/18 20:25 Sodium 138 mmol/L (137-145) 08/17/18 05:20 Potassium 4.4 mmol/L (3.5-5.1) 08/17/18 05:20 Chloride 109 mmol/L (98-107) H 08/17/18 05:20 Carbon Dioxide 21 mmol/L (22-30) L 08/17/18 05:20 Anion Gap 8 mmol/L 08/17/18 05:20 BUN 8 mg/dL (7-17) 08/17/18 05:20 Creatinine 0.58 mg/dL (0.52-1.04) 08/17/18 05:20 Est GFR (CKD-EPI)AfAm >90 (>60 ml/min/1.73 sqM) 08/17/18 05:20 Est GFR (CKD-EPI)NonAf >90 (>60 ml/min/1.73 sqM) 08/17/18 05:20 Glucose 85 mg/dL (74-99) 08/17/18 05:20 POC Glucose (mg/dL) 109 mg/dL (75-99) H 08/16/18 00:57 POC Glu Staker Surveying ID Odette Barrera 08/16/18 00:57 Plasma Lactic Acid Chase 0.8 mmol/L (0.7-2.0) 08/15/18 20:25 Calcium 8.1 mg/dL (8.4-10.2) L 08/17/18 05:20 Magnesium 1.6 mg/dL (1.6-2.3) 08/17/18 05:20 Total Bilirubin 0.8 mg/dL (0.2-1.3) 08/15/18 19:25 AST 22 U/L (14-36) 08/15/18 19:25 ALT 27 U/L (9-52) 08/15/18 19:25 Alkaline Phosphatase 123 U/L (38-126) 08/15/18 19:25 Ammonia <9 umol/L (<30) 08/15/18 20:25 Lactate Dehydrogenase 678 U/L (313-618) H 08/17/18 05:20 Troponin I <0.012 ng/mL (0.000-0.034) 08/15/18 19:25 Total Protein 6.5 g/dL (6.3-8.2) 08/15/18 19:25 Albumin 2.8 g/dL (3.5-5.0) L 08/15/18 19:25 Lipase 16 U/L (23-300) L 08/15/18 20:25 Urine Color Yellow 08/15/18 22:22 Urine Appearance Clear (Clear) 08/15/18 22:22 Urine pH 7.0 (5.0-8.0) 08/15/18 22:22 Ur Specific Sullivan >1.050 (1.001-1.035) H 08/15/18 22:22 Urine Protein Trace (Negative) H 08/15/18 22:22 Urine Glucose (UA) Negative (Negative) 08/15/18 22:22 Urine Ketones 1+ (Negative) H 08/15/18 22:22 Urine Blood Large (Negative) H 08/15/18 22:22 Urine Nitrite Negative (Negative) 08/15/18 22:22 Urine Bilirubin Negative (Negative) 08/15/18 22:22 Urine Urobilinogen <2.0 mg/dL (<2.0) 08/15/18 22:22 Ur Leukocyte Esterase Trace (Negative) H 08/15/18 22:22 Urine RBC >182 /hpf (0-5) H 08/15/18 22:22 Ur Squamous Epith Cells 1 /hpf (0-4) 08/15/18 22:22 Urine Bacteria Rare /hpf (None) H 08/15/18 22:22 Urine HCG, Qual Not Detected (Not Detectd) 08/15/18 22:22 Influenza Type A RNA Not Detected (Not Detectd) 08/15/18 20:25 Influenza Type B (PCR) Not Detected (Not Detectd) 08/15/18 20:25 Blood Type O Positive 08/15/18 19:25 Blood Type Confirm O Positive 08/15/18 20:25 Blood Type Recheck CABO Indicated 08/15/18 19:25 Antibody Screen NEGATIVE 08/15/18 19:25 Crossmatch See Detail 08/15/18 19:25 Spec Expiration Date 08/18/2018 5403 08/15/18 19:25 Laboratory Results WBC 13.1 k/uL (3.8-10.6) H 08/17/18 18:46 RBC 2.60 m/uL (3.80-5.40) L 08/17/18 18:46 Hgb 6.9 gm/dL (11.4-16.0) L* 08/17/18 18:46 Hct 21.4 % (34.0-46.0) L 08/17/18 18:46 MCV 82.0 fL (80.0-100.0) 08/17/18 18:46 MCH 26.5 pg (25.0-35.0) 08/17/18 18:46 MCHC 32.4 g/dL (31.0-37.0) 08/17/18 18:46 RDW 15.9 % (11.5-15.5) H 08/17/18 18:46 Plt Count 333 k/uL (150-450) 08/17/18 18:46 Neutrophils % 92 % 08/17/18 05:20 Lymphocytes % 4 % 08/17/18 05:20 Monocytes % 3 % 08/17/18 05:20 Eosinophils % 0 % 08/17/18 05:20 Basophils % 0 % 08/17/18 05:20 Neutrophils # 12.4 k/uL (1.3-7.7) H 08/17/18 05:20 Lymphocytes # 0.5 k/uL (1.0-4.8) L 08/17/18 05:20 Monocytes # 0.5 k/uL (0-1.0) 08/17/18 05:20 Eosinophils # 0.0 k/uL (0-0.7) 08/17/18 05:20 Basophils # 0.0 k/uL (0-0.2) 08/17/18 05:20 Hypochromasia Slight 08/17/18 18:46 Poikilocytosis Slight 08/17/18 18:46 Retic Count 1.6 % (0.5-2.0) 08/17/18 05:20 PT 13.1 sec (9.0-12.0) H 08/15/18 20:25 INR 1.3 (<1.2) H 08/15/18 20:25 APTT 24.5 sec (22.0-30.0) 08/15/18 20:25 Sodium 138 mmol/L (137-145) 08/17/18 05:20 Potassium 4.4 mmol/L (3.5-5.1) 08/17/18 05:20 Chloride 109 mmol/L (98-107) H 08/17/18 05:20 Carbon Dioxide 21 mmol/L (22-30) L 08/17/18 05:20 Anion Gap 8 mmol/L 08/17/18 05:20 BUN 8 mg/dL (7-17) 08/17/18 05:20 Creatinine 0.58 mg/dL (0.52-1.04) 08/17/18 05:20 Est GFR (CKD-EPI)AfAm >90 (>60 ml/min/1.73 sqM) 08/17/18 05:20 Est GFR (CKD-EPI)NonAf >90 (>60 ml/min/1.73 sqM) 08/17/18 05:20 Glucose 85 mg/dL (74-99) 08/17/18 05:20 POC Glucose (mg/dL) 109 mg/dL (75-99) H 08/16/18 00:57 POC Glu Staker Surveying ID Odette Barrera 08/16/18 00:57 Plasma Lactic Acid Chase 0.8 mmol/L (0.7-2.0) 08/15/18 20:25 Calcium 8.1 mg/dL (8.4-10.2) L 08/17/18 05:20 Magnesium 1.6 mg/dL (1.6-2.3) 08/17/18 05:20 Total Bilirubin 0.8 mg/dL (0.2-1.3) 08/15/18 19:25 AST 22 U/L (14-36) 08/15/18 19:25 ALT 27 U/L (9-52) 08/15/18 19:25 Alkaline Phosphatase 123 U/L (38-126) 08/15/18 19:25 Ammonia <9 umol/L (<30) 08/15/18 20:25 Lactate Dehydrogenase 678 U/L (313-618) H 08/17/18 05:20 Troponin I <0.012 ng/mL (0.000-0.034) 08/15/18 19:25 Total Protein 6.5 g/dL (6.3-8.2) 08/15/18 19:25 Albumin 2.8 g/dL (3.5-5.0) L 08/15/18 19:25 Lipase 16 U/L (23-300) L 08/15/18 20:25 Urine Color Yellow 08/15/18 22:22 Urine Appearance Clear (Clear) 08/15/18 22:22 Urine pH 7.0 (5.0-8.0) 08/15/18 22:22 Ur Specific Sullivan >1.050 (1.001-1.035) H 08/15/18 22:22 Urine Protein Trace (Negative) H 08/15/18 22:22 Urine Glucose (UA) Negative (Negative) 08/15/18 22:22 Urine Ketones 1+ (Negative) H 08/15/18 22:22 Urine Blood Large (Negative) H 08/15/18 22:22 Urine Nitrite Negative (Negative) 08/15/18 22:22 Urine Bilirubin Negative (Negative) 08/15/18 22:22 Urine Urobilinogen <2.0 mg/dL (<2.0) 08/15/18 22:22 Ur Leukocyte Esterase Trace (Negative) H 08/15/18 22:22 Urine RBC >182 /hpf (0-5) H 08/15/18 22:22 Ur Squamous Epith Cells 1 /hpf (0-4) 08/15/18 22:22 Urine Bacteria Rare /hpf (None) H 08/15/18 22:22 Urine HCG, Qual Not Detected (Not Detectd) 08/15/18 22:22 Influenza Type A RNA Not Detected (Not Detectd) 08/15/18 20:25 Influenza Type B (PCR) Not Detected (Not Detectd) 08/15/18 20:25 Blood Type O Positive 08/15/18 19:25 Blood Type Confirm O Positive 08/15/18 20:25 Blood Type Recheck CABO Indicated 08/15/18 19:25 Antibody Screen NEGATIVE 08/15/18 19:25 Crossmatch See Detail 08/15/18 19:25 Spec Expiration Date 08/18/2018 3390 08/15/18 19:25 Microbiology 08/16/18 18:50 Urine,Clean Catch Urine Culture - Final 08/15/18 20:25 Blood Blood Culture - Preliminary No Growth after 24 hours Assessment and Plan (1) Metastatic lung cancer (metastasis from lung to other site) Narrative/Plan: 52 year old woman with several cancers who recently has completed a course of radiation therapy for her glottis cancer. She however is having recurrent ascites requiring paracentesis for comfort. She presents to hospital with high- grade fever up to 102.3 feeling very poorly. She has noted she has evidence of ascites, large complex abdominal mass. Upon presentation into the intensive care unit she has fever and anemia. Patient is also complaining of some tenderness in the left axillary area. With manipulation it does not drain and i s quite tender. The plan for now will be antibiotic therapy with cefepime and vancomycin while cultures are pending. Oncology follow-up for delineate any particular plans. Unclear if there will be any surgical interventions are chemotherapy options here in the near future. 08/17/2018 the patient feels slightly better. She's having no further fever. The left axillary tenderness is stable to improved. Vaginal bleeding is improved. Workup is in process and likely will be transferred to a tertiary care center for gynecological oncology evaluation given her complex disease, with the untreated metastatic lung cancer and the recent head and neck cancer. Antibiotic therapy continues for now while cultures are process. Patient's family is updated. Current Visit: Yes Status: Acute Priority: High Code(s): C34.90 - MALIGNANT NEOPLASM OF UNSP PART OF UNSP BRONCHUS OR LUNG SNOMED Code(s): 85617308
[2018-08-17 23:47] LABS: Iron Saturation 4.4 (12.00-45.00)
[2018-08-18 00:10] LABS: Folate, Serum 19.5 ng/mL
[2018-08-18] MEDS: HYDROmorphone 0.5 MG/0.5 ML SYRINGE IVP PRN ×5 (05:20→23:29)
[2018-08-18] MEDS: CEFEPIME 1 GM in SODIUM CHLORIDE 0.9% 50 ML IVPB SCH ×3 (05:21→22:44)
[2018-08-18 06:15] LABS: Anisocytosis Slight; Basophils % (A) 0 %; Eosinophils # (A) 0.1 k/uL (0-0.7); Eosinophils % (A) 1 %; HCT 25.4 % (34.0-46.0); HGB 8.1 gm/dL (11.4-16.0); Hypochromasia Slight; Lymphocytes # (A) 0.5 k/uL (1.0-4.8); Lymphocytes % (A) 4 %; MCH 26.3 pg (25.0-35.0); MCHC 31.8 g/dL (31.0-37.0); MCV 82.7 fL (80.0-100.0); Mean Platelet Volume 10.6; Monocytes # (A) 0.5 k/uL (0-1.0); Monocytes % (A) 4 %; Neutrophils # (A) 12.6 k/uL (1.3-7.7); Neutrophils % (A) 91 %; Platelet Count 308 k/uL (150-450); Poikilocytosis Slight; RBC 3.07 m/uL (3.80-5.40); RDW 16.5 % (11.5-15.5); WBC 13.8 k/uL (3.8-10.6)
[2018-08-18 07:11] LABS: Anion Gap 6 mmol/L; Blood Urea Nitrogen 9 mg/dL (7-17); Calcium 7.9 mg/dL (8.4-10.2); Carbon Dioxide 21 mmol/L (22-30); Chloride 110 mmol/L (98-107); Glucose 91 mg/dL (74-99); Sodium 137 mmol/L (137-145)
--- NOTE | 2018-08-18 08:44 | PN ---
PROGRESS NOTE DATE OF SERVICE: 08/17/2018 This 52-year-old woman who was admitted with abdominal pain, fever, had left axillary swelling. The patient underwent abdominal ultrasound showed only showed small ascites. Axillary ultrasound showed about 2.9 cm abscess in the left axilla, which was I and D by Surgery. The patient is being closely monitored at this time. The patient's hemoglobin is 7.6, but currently dropping to 6.9 at this time. The patient is on broad- spectrum IV antibiotics. Cultures are pending at this time. PAST MEDICAL HISTORY: Reviewed. REVIEW OF SYSTEMS: CARDIOVASCULAR: No angina or palpitations. Respiration: ntdGI as mentioned earlier. CENTRAL NERVOUS SYSTEM: No numbness or weakness. CURRENT MEDICATIONS ARE: Reviewed and include: 1. Tylenol 650 q.4 p.r.n. 2. Xanax 0.25 t.i.d. 3. Lipitor 80 mg daily. 4. Cefepime q.8h. 5. Folic acid. 6. IV heparin. 7. Dilaudid. 8. Reglan. 9. Lopressor. 10.Vancomycin. 11.Percocet. 12.Protonix. 13.Restoril. 14.Vancomycin. PHYSICAL EXAM: Patient is alert, oriented x3, pulse is 103. Blood pressure is 92/50, respiratory 14, temperature 98.2, pulse ox 94% on room air. HEENT: Conjunctivae normal. NECK: No jugular venous distention. RESPIRATORY: Breath sounds diminished in the bases. Bilateral scattered rhonchi and crackles. ABDOMEN: Soft, nontender. Legs: No edema. CENTRAL NERVOUS SYSTEM: No focal deficits. LAB STUDIES: WBC 13.8, hemoglobin 7.6, sodium 130, potassium 4.4. ASSESSMENT: 1. Abdominal pain, fever, left axillary swelling with possible sepsis present on admission. 2. Possible axillary abscess status post incision and drainage on broad-spectrum IV antibiotics. 3. Genitourinary bleeding with acute on chronic blood-loss anemia. 4. Ovarian carcinoma with possible metastasis. 5. Heparin monitoring. 6. Was on Eliquis previously. 7. History of pulmonary embolus. 8. Hyponatremia. 9. Increased WBC. 10.History of gastroesophageal reflux disease. 11.Hypertension. 12.Hyperlipidemia. 13.History of myocardial infarction. 14.History of brain aneurysm. 15.History of lung cancer. 16.History of anxiety. 17.Panic disorder. 18.Nicotine dependence. 19.FULL CODE. RECOMMENDATIONS AND DISCUSSION: In this 52-year-old woman who presented with multiple complex medical issues, we will monitor the patient closely. Continue the current medications, management and symptomatic treatment. Otherwise, at this time, I recommend transfusion of 1 unit. Continue to monitor. Otherwise, I would also recommend continue the antibiotics. Follow the cultures. Otherwise discussed with Dr. Campbell recommend LAW CLERK/ONC referral to [facility] once the patient is stabilized. Prognosis extremely guarded. Discussed with family. Further recommendations to follow. MMODL / IJN: [id number] / ATIF
[2018-08-18] MEDS: FOLIC ACID 1 MG TAB PO SCH ×2 (09:02→09:43)
[2018-08-18] MEDS: ALPRAZolam 0.25 MG TAB PO SCH ×2 (09:33→22:33)
[2018-08-18] MEDS: METOPROLOL TARTRATE 12.5 MG TAB PO SCH ×2 (09:33→22:43)
--- NOTE | 2018-08-18 09:37 | P.PN ---
Progress Note - Text Progress Note Date: 08/18/18 The patient underwent incision and drainage of a left axillary abscess yesterday. She states her pain is improved. On exam her vital signs are stable. The axillary wound is clean. Patient will continue local wound care.
--- NOTE | 2018-08-18 09:39 | P.OP ---
Date of Procedure: 08/17/18 Preoperative Diagnosis: Left axillary abscess Postoperative Diagnosis: Left axillary abscess Procedure(s) Performed: Incision and drainage of left axillary abscess Anesthesia: local Surgeon: Randall Quevedo Estimated Blood Loss (ml): 3 Pathology: other (Wound culture) Condition: stable Disposition: PACU Description of Procedure: The patient's placed on the bed in the supine position. Her left axilla was prepped and draped usual sterile fashion. The skin was anesthetized with 1% local Xylocaine. Using a 15 blade a cruciate incision was made on the abscess. Prostate 5 mL of. Fluid was removed. The wound was cultured. Sterile dressing was applied. Patient top procedure well.
[2018-08-18] MEDS: ATORVASTATIN 80 MG TAB PO SCH (09:43)
[2018-08-18] MEDS: PANTOPRAZOLE 40 MG/10 ML VIAL IVP SCH (09:43)
[2018-08-18] MEDS: SODIUM CHLORIDE 0.9% 1,000 ML IV SCH ×3 (09:48→11:26)
[2018-08-18] MEDS ORDERED: VANCOMYCIN TROUGH DUE 1 EACH MISC MISCELLANE ONE (10:00)
[2018-08-18] MEDS: VANCOMYCIN 1,500 MG in SODIUM CHLORIDE 0.9% 250 ML IVPB SCH ×2 (11:17→23:58)
--- NOTE | 2018-08-18 22:35 | PN ---
PROGRESS NOTE DATE OF SERVICE: 08/18/2018. HISTORY: This 52-year-old woman with past medical history of multiple medical problems including lung cancer with mets, was admitted with abdominal pain and fever. The patient also had some vaginal bleeding. The patient also had abscess. Patient had incision and drainage. Patient is on broad IV antibiotics. Multiple consultants are following the patient. Hemoglobin also dropped to 6.9. Patient is on IV heparin at this time. Hemoglobin improved to 8.1 after transfusion. Patient is being closely monitored in the ICU. Multiple consultants are following the patient including Dr. Fatima. PAST MEDICAL HISTORY: Reviewed. REVIEW OF SYSTEMS: CARDIOVASCULAR: No angina. RESPIRATORY SYSTEM: As mentioned earlier. GI: As mentioned earlier. : As mentioned. NERVOUS SYSTEM: No numbness or weakness. ALLERGY/IMMUNOLOGY: No asthma or hayfever. MUSCULOSKELETAL: As mentioned earlier. CURRENT MEDICATIONS: 1. Tylenol 650 every 4 p.r.n. 2. Xanax 0.5 t.i.d. 3. Lipitor 80 mg daily. 4. Cefepime 1 g every 8 hours. 5. Folic acid 1 mg. 6. Heparin subcu b.i.d. 7. Dilaudid 0.5 every 4 p.r.n. 8. Reglan. 9. Lopressor. 10.Zofran. 11.Percocet. 12.Protonix. 13.Restoril. 14.Vancomycin IV. PHYSICAL EXAM: Patient is alert, oriented x3, pulse 121, blood pressure 100/60, respirations 16, temperature 99.4, pulse ox 98% on room air. HEENT: Conjunctivae normal. Oral mucosa moist. NECK: No jugular venous distention. No lymph node enlargement. CARDIOVASCULAR: Tachycardic. LUNGS: Breath sounds diminished at the bases. Scattered rhonchi and crackles. ABDOMEN: Soft, obese. EXTREMITIES: Legs no edema. NERVOUS SYSTEM: Diffusely weak. LAB INVESTIGATIONS: At this time show WBC ntd , hemoglobin is 8.1 10, sodium 137, potassium 4. Vitamin B12 noted. CT scan of the abdomen and pelvis were reviewed, showed multiple low-density liver lesions, abnormal ascites and carcinomatosis. Cystic mass in the pelvis related to ovary. Other labs are noted. ASSESSMENT: 1. Abdominal pain, fever, left axillary swelling, possible sepsis present on admission. 2. Axillary abscess status post incision and drainage on broad-spectrum IV antibiotics. 3. Genitourinary bleeding with acute on chronic blood-loss anemia, possibly secondary from metastatic malignancy. 4. Possible lung cancer with multiple mets. 5. Heparin monitoring. 6. Was on Eliquis previously. 7. History of pulmonary embolus. 8. Hyponatremia. 9. Increased WBC. 10.History of GERD. 11.Hypertension. 12.Hyperlipidemia. 13.History of myocardial infarction. 14.History of brain aneurysm. 15.History of lung cancer. 16.History of anxiety. 17.History of panic disorder. 18.History of nicotine dependence. 19.FULL CODE. RECOMMENDATIONS: Recommend to continue current management and continue symptomatic treatment. I had a detailed discussion with Dr. Fatima who is going to monitor the patient along with heparin. If the patient continues to have bleeding the patient might require more transfusion and the patient might be a candidate for IVC filter. Otherwise, Dr. Fatima does not feel like any CLINICAL SUPPORT ASSOCIATE Oncology referral is needed at this time. Most likely the ovarian lesion is secondary to lung cancer. He would recommended outpatient CLINICAL SUPPORT ASSOCIATE evaluation. The overall prognosis is guarded. Discussed the family at length. See orders for further details. We will monitor the patient in the ICU. MMODL / IJN: [id number] / ATIF
[2018-08-18] MEDS: HEPARIN SOD,PORK IN 0.45% NACL 25,000 UNIT in 0.45% NACL 1 250ML.BAG IV SCH (22:44)
--- NOTE | 2018-08-19 00:21 | P.PN ---
Subjective Progress Note Date: 08/18/18 The patient continues to complain of decreased endurance. According to the patient and nursing, vaginal bleeding is very minimal at this time, what appears to be small amounts of old clots. No fever/chills/nausea/vomiting. She continues to complain of abdominal discomfort and mild distention. Overall endurance is still reduced. Objective - Vital Signs Vital signs: Vital Signs Temp 99.5 F 08/18/18 20:00 Pulse 113 H 08/18/18 22:00 Resp 18 08/18/18 22:00 BP 115/65 08/18/18 22:00 Pulse Ox 89 L 08/18/18 22:00 Intake & Output 08/18/18 08/18/18 08/19/18 06:59 18:59 06:59 Intake Total 250 1388.333 461.667 Output Total 400 300 Balance 250 988.333 161.667 Weight 89.9 kg Intake: IV 250 1300 300 Cefepime 1 gm In Sodium 50 Chloride 0.9% 50 ml @ 100 mls/hr IVPB Q8H [facility] Rx#: [id number] Sodium Chloride 0.9% 1, 1000 300 000 ml @ 100 mls/hr IV . Q10H [facility] Rx#:[id number] Vancomycin 1,500 mg In 250 250 Sodium Chloride 0.9% 250 ml @ 125 mls/hr IVPB Q12H [facility] Rx#:[id number] Intake, IV Titration 88.333 161.667 Amount Heparin Sod,Pork in 0.45% 88.333 161.667 NaCl 25,000 unit In 0.45 % NaCl 1 250ml.bag @ 10 mls/hr IV .Q24H [facility] Rx#: [id number] Output: Urine 200 Urine/Stool Mix 200 300 Other: Voiding Method Bedside Commode Bedside Commode # Voids 1 # Bowel Movements 1 - Constitutional General appearance: Present: no acute distress - EENT Eyes: Present: EOMI, PERRLA ENT: Present: hearing grossly normal, normal oropharynx - Neck Thyroid: bilateral: normal size - Respiratory Respiratory: bilateral: CTA - Cardiovascular Rhythm: regular Heart sounds: normal: S1, S2 - Gastrointestinal General gastrointestinal: Present: distended, normal bowel sounds, soft - Integumentary Integumentary: Present: normal - Neurologic Neurologic: Present: CNII-XII intact - Musculoskeletal Musculoskeletal: Present: generalized weakness, strength equal bilaterally - Psychiatric Psychiatric: Present: A&O x's 3, appropriate affect - Labs CBC & Chem 7: 08/18/18 05:15 08/18/18 05:15 Labs: Abnormal Lab Results - Last 24 Hours (Table) 08/17/18 08/18/18 08/18/18 Range/Units 05:20 05:15 05:15 WBC 13.8 H (3.8-10.6) k/uL RBC 3.07 L (3.80-5.40) m/uL Hgb 8.1 L (11.4-16.0) gm/dL Hct 25.4 L (34.0-46.0) % RDW 16.5 H (11.5-15.5) % Neutrophils # 12.6 H (1.3-7.7) k/uL Lymphocytes # 0.5 L (1.0-4.8) k/uL APTT (22.0-30.0) sec Chloride 110 H (98-107) mmol/L Carbon Dioxide 21 L (22-30) mmol/L Calcium 7.9 L (8.4-10.2) mg/dL Vitamin B12 2441.0 H (200.0-944.0) pg/mL 08/18/18 08/18/18 Range/Units 05:15 13:45 WBC (3.8-10.6) k/uL RBC (3.80-5.40) m/uL Hgb (11.4-16.0) gm/dL Hct (34.0-46.0) % RDW (11.5-15.5) % Neutrophils # (1.3-7.7) k/uL Lymphocytes # (1.0-4.8) k/uL APTT 40.7 H 75.9 H (22.0-30.0) sec Chloride (98-107) mmol/L Carbon Dioxide (22-30) mmol/L Calcium (8.4-10.2) mg/dL Vitamin B12 (200.0-944.0) pg/mL Microbiology - Last 24 Hours (Table) 08/15/18 20:25 Blood Culture - Preliminary Blood No Growth after 72 hours 08/17/18 14:00 Gram Stain - Preliminary Axilla - Left Wound Culture - Preliminary Assessment and Plan (1) Vaginal bleeding Narrative/Plan: This has declined significantly, based on my conversation with nursing and with the patient. At this time there does not appear to be any active fresh bleeding . Therefore patient will be continued on IV heparin, with continued close monitoring. If bleeding recurs, then IVC filter will be considered. Source of bleeding is not clear. Vaginal exam was negative for gynecology. Uterine source, as well as possible fistula related to metastatic disease in the pelvis are possibilities. 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 The case was discussed with internal medicine in detail. There is no indication whatsoever for referral to SODA COLUMN OPERATOR oncology. The patient has pathology proven metastatic lung cancer in both the peritoneal fluid, as well as the liver. Therefore the cystic adnexal mass most likely represents the same pathology, or could be a benign cyst. Even if this was an ovarian malignancy, the patient is not a candidate for any aggressive intervention given widely metastatic lung cancer. Current Visit: Yes Status: Acute Priority: High Code(s): N93.9 - ABNORMAL UTERINE AND VAGINAL BLEEDING, UNSPECIFIED SNOMED Code(s): 580983924 (2) Pulmonary emboli Narrative/Plan: Plan as noted above. If bleeding recurs, then IVC filter placement will be requested. In that case we can rechallenge with anticoagulation down the line if bleeding resolves and the patient has had some treatment of the underlying malignancy Current Visit: Yes Status: Acute Priority: High Code(s): I26.99 - OTHER PULMONARY EMBOLISM WITHOUT ACUTE COR PULMONALE SNOMED Code(s): 73228058 (3) Metastatic lung cancer (metastasis from lung to other site) Narrative/Plan: Molecular testing is pending to decide treatment Current Visit: Yes Status: Acute Priority: High Code(s): C34.90 - MA LIGNANT NEOPLASM OF UNSP PART OF UNSP BRONCHUS OR LUNG SNOMED Code(s): 93 466121 (4) Ascites Narrative/Plan: Some reaction ablation is noted but abdomen is still soft. Repeat paracentesis when necessary in the future for palliation Current Visit: Yes Status: Acute Code(s): R18.8 - OTHER ASCITES SNOMED Code(s): 912563721 Plan: monitor hemoglobin. Transfuse for hemoglobin Less than 7 CODE STATUS was also discussed with the patient. At this time she is a full code. She was advised that aggressive life support generally has poor outcomes in patients do so for cardiorespiratory arrest in the setting of major underlying disease such as a metastatic malignancy. Therefore consideration of no code no CPR status while continuing aggressive medical management is quite reasonable. The patient will consider this further and make a decision.
[2018-08-19] MEDS: HYDROmorphone 0.5 MG/0.5 ML SYRINGE IVP PRN ×4 (05:49→22:50)
[2018-08-19] MEDS: CEFEPIME 1 GM in SODIUM CHLORIDE 0.9% 50 ML IVPB SCH ×2 (05:50→14:34)
[2018-08-19 06:42] LABS: Anisocytosis Slight; Basophils % (A) 0 %; Eosinophils # (A) 0.2 k/uL (0-0.7); Eosinophils % (A) 2 %; HCT 23.4 % (34.0-46.0); HGB 7.8 gm/dL (11.4-16.0); Hypochromasia Slight; Lymphocytes # (A) 0.4 k/uL (1.0-4.8); Lymphocytes % (A) 3 %; MCH 27.1 pg (25.0-35.0); MCHC 33.4 g/dL (31.0-37.0); Mean Platelet Volume 10.6; Monocytes # (A) 0.6 k/uL (0-1.0); Monocytes % (A) 4 %; Neutrophils # (A) 11.5 k/uL (1.3-7.7); Neutrophils % (A) 90 %; Platelet Count 275 k/uL (150-450); Poikilocytosis Slight; RBC 2.89 m/uL (3.80-5.40); RDW 17.1 % (11.5-15.5); WBC 12.9 k/uL (3.8-10.6)
[2018-08-19 06:51] LABS: Anion Gap 5 mmol/L; Blood Urea Nitrogen 8 mg/dL (7-17); Calcium 7.7 mg/dL (8.4-10.2); Carbon Dioxide 22 mmol/L (22-30); Chloride 111 mmol/L (98-107); Glucose 105 mg/dL (74-99); Sodium 138 mmol/L (137-145)
[2018-08-19] MEDS ORDERED: HEPARIN SODIUM,PORCINE 5,000 UNIT/ML 1 ML VIAL IV STA (07:39)
[2018-08-19] MEDS: ALPRAZolam 0.25 MG TAB PO SCH ×2 (08:25→20:30)
[2018-08-19] MEDS: ATORVASTATIN 80 MG TAB PO SCH (08:50)
[2018-08-19] MEDS: PANTOPRAZOLE 40 MG/10 ML VIAL IVP SCH (08:50)
[2018-08-19] MEDS: METOPROLOL TARTRATE 12.5 MG TAB PO SCH ×2 (08:50→20:30)
[2018-08-19] MEDS: FOLIC ACID 1 MG TAB PO SCH (08:50)
[2018-08-19] MEDS: SODIUM CHLORIDE 0.9% 1,000 ML IV SCH ×3 (08:59→14:34)
[2018-08-19] MEDS: VANCOMYCIN 1,500 MG in SODIUM CHLORIDE 0.9% 250 ML IVPB SCH (11:48)
[2018-08-19] MEDS: ACETAMINOPHEN TAB 325 MG TAB PO PRN ×2 (12:07→20:33)
[2018-08-19] MEDS ORDERED: FUROSEMIDE 10 MG/ML 2 ML VIAL IV ONE (14:44)
[2018-08-19] MEDS ORDERED: CEFEPIME 2 GM in SODIUM CHLORIDE 0.9% 50 ML IVPB SCH (15:30)
--- NOTE | 2018-08-19 17:24 | PN ---
PROGRESS NOTE DATE OF SERVICE: 08/19/2018 This 52-year-old woman who was admitted with multiple medical problems including abdominal pain, fever and swelling, also had possible sepsis. The patient is on broad spectrum IV antibiotics. Hemoglobin is currently 7.9. Minimal bleeding is noted at this time. Patient is on heparin. I discussed the case with Dr. Fatima extensively and please refer to Dr. West's extensive notes for further information. Apparently the patient had proven metastatic lung cancer. Most likely the pelvis mass is secondary to lung METS and the patient has got positive biopsy evidence from peritoneal fluid as well as liver biopsy, so there is no need for an EXCHANGE MECHANIC or any MANUFACTURING ENGINEERING DIRECTOR/ONC consultation at this time per Dr. Fatima. The patient is currently closely monitored. The patient is also on broad-spectrum IV antibiotics. As mentioned earlier, cultures are negative so far. PAST MEDICAL HISTORY: Reviewed. REVIEW OF SYSTEMS: CARDIOVASCULAR: No angina or palpitations. RESPIRATORY: As mentioned earlier. GI no nausea or vomiting. as mentioned earlier. NERVOUS SYSTEM: No numbness or weakness. CURRENT MEDICATIONS ARE: Reviewed and include: 1. Tylenol 650 q.4 p.r.n. 2. Xanax 0.5 t.i.d. 3. Lipitor 80 mg daily. 4. Cefepime 1 g IV q8. 5. Folic acid 1 mg daily. 6. Heparin drip. 7. Dilaudid 0.5 q.4 p.r.n. 8. Reglan. 9. Lopressor. 10.Percocet. 11.Protonix. 12.Restoril. 13.Vancomycin IV. PHYSICAL EXAM: Patient is alert, oriented x3, pulse 123, blood pressure 140/68, respiration 13, temperature 100.6, pulse ox 98% on room air. HEENT: Conjunctivae normal. Oral mucosa moist. NECK is no jugular venous distention. No carotid bruit. No lymph node enlargement. CARDIOVASCULAR: S1, S2 muffled. RESPIRATIONS: Breath sounds diminished in the bases. Bilateral scattered rhonchi and crackles. Expiratory wheezing. ABDOMEN: Soft, nontender. No mass palpable. Legs: No edema. No swelling. NERVOUS SYSTEM: Higher functions as mentioned earlier. Moves all four limbs. No focal deficits. Lymphatics: No lymph nodes palpable in the neck, axillae or groin. Skin is no ulcer, rash or bleeding. JOINTS: No active deforming arthropathy. LAB STUDIES: WBC 12.8, hemoglobin 7.8. ASSESSMENT: 1. Abdominal pain, fever, left axillary swelling with possible sepsis present on admission. 2. Continued fever. 3. Axillary abscess status post incision and drainage with broad-spectrum IV antibiotics. 4. Genitourinary bleeding and as well as acute on chronic blood-loss anemia possibly secondary to metastatic malignancy. 5. Possible lung cancer with multiple METS to the peritoneum and as well as liver. 6. Heparin monitoring. 7. Ovarian tumor possibly related to lung malignancy. 8. Was on Eliquis previously. 9. History of pulmonary embolism. 10.Hyponatremia. 11.Increased WBC. 12.History of gastroesophageal reflux disease. 13.Hypertension. 14.Hyperlipidemia. 15.History of myocardial infarction. 16.History of brain aneurysm. 17.History of lung cancer. 18.History of anxiety. 19.History of panic disorder. 20.History of nicotine dependence. 21.FULL CODE. RECOMMENDATIONS AND DISCUSSION: I recommend to continue current medications and symptomatic treatment, monitoring, otherwise, at this time, continue with IV heparin. Watch for bleeding. Patient is running fever. The patient is currently on IV Cefepime. I would increase the dose to 2 g. Otherwise, I would also recommend repeat cultures and continue to monitor. Further recommendations to follow. MMODL / IJN: [id number] /
[2018-08-19] MEDS: SODIUM FERRIC GLUCONAT-SUCROSE 125 MG in SODIUM CHLORIDE 0.9% 100 ML IVPB SCH (17:28)
--- NOTE | 2018-08-19 18:58 | P.PN ---
Subjective Progress Note Date: 08/19/18 The patient continues to complain of abdominal pain, more on the right side versus the left. Bloody discharge per vaginum continues but is very scant and intermittent with no increased compared to yesterday. Objective - Vital Signs Vital signs: Vital Signs Temp 98.0 F 08/19/18 18:45 Pulse 127 H 08/19/18 18:45 Resp 24 08/19/18 18:45 BP 110/64 08/19/18 18:45 Pulse Ox 96 08/19/18 18:45 Intake & Output 08/18/18 08/19/18 08/19/18 18:59 06:59 18:59 Intake Total 8176.179 2423.667 1092.421 Output Total 440 997 3183 Balance 495.529 2085.667 -507.579 Weight 92.1 kg 92.1 kg Intake: IV 1300 1150 890 Cefepime 1 gm In Sodium 50 50 100 Chloride 0.9% 50 ml @ 100 mls/hr IVPB Q8H [facility] Rx#: [id number] Sodium Chloride 0.9% 1, 1000 1100 540 000 ml @ 20 mls/hr IV . Q24H [facility] Rx#:[id number] Vancomycin 1,500 mg In 250 250 Sodium Chloride 0.9% 250 ml @ 125 mls/hr IVPB Q12H [facility] Rx#:[id number] Intake, IV Titration 88.333 161.667 202.421 Amount Heparin Sod,Pork in 0.45% 88.333 161.667 102.421 NaCl 25,000 unit In 0.45 % NaCl 1 250ml.bag @ 10 mls/hr IV .Q24H [facility] Rx#: [id number] Sodium Ferric Gluconat- 100 Sucrose 125 mg In Sodium Chloride 0.9% 100 ml @ 100 mls/hr IVPB DAILY [facility] Rx#:[id number] Output: Urine 200 1600 Urine/Stool Mix 200 300 Other: Voiding Method Bedside Commode Bedpan Bedside Commode # Voids 3 2 # Bowel Movements 1 - Constitutional General appearance: Present: no acute distress - EENT Eyes: Present: EOMI ENT: Present: hearing grossly normal, normal oropharynx - Neck Thyroid: bilateral: normal size - Respiratory Respiratory: bilateral: CTA - Cardiovascular Rhythm: regular Heart sounds: normal: S1, S2 - Gastrointestinal Gastrointestinal Comment(s): No significant ascites on exam General gastrointestinal: Present: distended, normal bowel sounds, soft Localized gastrointestinal: tender: RUQ, RLQ - Integumentary Integumentary: Present: normal - Neurologic Neurologic: Present: CNII-XII intact - Musculoskeletal Musculoskeletal: Present: generalized weakness, strength equal bilaterally - Psychiatric Psychiatric: Present: A&O x's 3, appropriate affect - Labs CBC & Chem 7: 08/19/18 05:50 08/19/18 05:50 Labs: Abnormal Lab Results - Last 24 Hours (Table) 08/19/18 08/19/18 08/19/18 Range/Units 05:50 05:50 05:50 WBC 12.9 H (3.8-10.6) k/uL RBC 2.89 L (3.80-5.40) m/uL Hgb 7.8 L (11.4-16.0) gm/dL Hct 23.4 L (34.0-46.0) % RDW 17.1 H (11.5-15.5) % Neutrophils # 11.5 H (1.3-7.7) k/uL Lymphocytes # 0.4 L (1.0-4.8) k/uL APTT 39.7 H (22.0-30.0) sec Chloride 111 H (98-107) mmol/L Glucose 105 H (74-99) mg/dL Calcium 7.7 L (8.4-10.2) mg/dL 08/19/18 Range/Units 13:30 WBC (3.8-10.6) k/uL RBC (3.80-5.40) m/uL Hgb (11.4-16.0) gm/dL Hct (34.0-46.0) % RDW (11.5-15.5) % Neutrophils # (1.3-7.7) k/uL Lymphocytes # (1.0-4.8) k/uL APTT 60.7 H (22.0-30.0) sec Chloride (98-107) mmol/L Glucose (74-99) mg/dL Calcium (8.4-10.2) mg/dL Microbiology - Last 24 Hours (Table) 08/17/18 14:00 Gram Stain - Final Axilla - Left Wound Culture - Final 08/15/18 20:25 Blood Culture - Preliminary Blood No Growth after 72 hours Assessment and Plan (1) Vaginal bleeding Narrative/Plan: There appears to be no increased compared to yesterday. Hemoglobin is stable at 7.8. Continue IV heparin. I will order a transvaginal ultrasound. Current Visit: Yes Status: Acute Priority: High Code(s): N93.9 - ABNORMAL UTERINE AND VAGINAL BLEEDING, UNSPECIFIED SNOMED Code(s): 029306007 (2) Pulmonary emboli Narrative/Plan: Continue IV heparin over the next 24 hours. If there is no increase in bleeding, consider switching to oral agent. If bleeding recurs, then the patient will need an IVC filter Current Visit: Yes Status: Acute Priority: High Code(s): I26.99 - OTHER PULMONARY EMBOLISM WITHOUT ACUTE COR PULMONALE SNOMED Code(s): 01842486 (3) Metastatic lung cancer (metastasis from lung to other site) Narrative/Plan: Awaiting molecular testing at this time to start systemic therapy. If the patient does not have an appropriate Malec target, she'll be treated with carboplatin, Alimta, and Keytruda Current Visit: Yes Status: Acute Priority: High Code(s): C34.90 - MALIGNANT NEOPLASM OF UNSP PART OF UNSP BRONCHUS OR LUNG SNOMED Code(s): 53146176 (4) Ascites Current Visit: Yes Status: Acute Code(s): R18.8 - OTHER ASCITES SNOMED Code(s): 896336917 Plan: Above plan discussed in detail with the admitting service
--- NOTE | 2018-08-19 21:34 | P.PN ---
Subjective Progress Note Date: 08/19/18 This is a 52-year-old -[place] female who was diagnosed with adenocarcinoma in July 2015 status post surgical intervention and she was advised for chemotherapy but had poor follow-up. 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 At that time she was advised that cancer was not curable and treatment would be to prolong life and palliation of symptoms. There was als o concern at that time for ovarian mass. She was also found to have a pulmonary embolism and started on eliquis. Last paracentesis done on August 01 1.8 L of fluid was removed. No cultures were obtained at that time. Previous to that, patient had a paracentesis on July 27 with removal of 5.8 L and cultures have been finalized from that specimen with no growth. Fungal culture is in process. Patient apparently has had vaginal bleeding since she started the eliquis with gradual increase in the amount of the bleeding as well as large clots. She complains of feeling cold but did not check her temperature at home. She denies any chest pain, shortness of breath, cough or sputum production, dysuria. She does complain of diffuse abdominal pain but states her abdominal size as less then prior to last paracentesis. Patient presented with signs of sepsis with fever of 102.3, sinus tachycardia in the 140s, leukocytosis 16.8. Her hemoglobin was 7.8, creatinine 0.6 Enrique. Lipase was normal. Influenza testing negative. Liver function tests normal. Troponin negative and albumin 2.8. Urinalysis revealed blood large, nitrate negative, leukoesterase trace, RBCs greater than 182. Transvaginal ultrasound showed large complex mass bilateral adnexa 14.5 x 7.4 x 11 x 2. Chest x-ray shows no acute lung disease. Right upper lobe emphysema with no change. Abdomen pelvis CAT scan revealed subsegmental atelectasis, multiple low density liver lesions more numerous from last study. Abdominal ascites with omental density consistent with malignant ascites and carcinomatosis. Unchanged. 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 This appears not significantly different than last exam. Patient was admitted to the intensive care unit and started on cefepime and vancomycin. Consults are in place with GI, oncology and gynecology. 08/17/2018 patient continues to feel poorly. Remains in intensive care unit and has been seen by multiple consultants. 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 The patient is able to drink boost but eats no other food. 08/19/2018 patient relates that she's feeling slightly better. She's been able to ingest her nutritional supplements without great difficulties but does not do well without recurrence of food. She relates that gets in her mouth and she feels like she can have to simply throw it up. Pain is under better control. She is less short of breath. Abdominal pain is improved. Oncology has clarified that patient's current difficulties are all metastatic lung cancer with abdominal involvement. She would not need gynecological intervention. Objective - Vital Signs Vital signs: Vital Signs Temp 100.2 F H 08/19/18 20:00 Pulse 120 H 08/19/18 20:00 Resp 15 08/19/18 20:00 BP 116/65 08/19/18 20:00 Pulse Ox 93 L 08/19/18 20:00 Intake & Output 08/19/18 08/19/18 08/20/18 06:59 18:59 06:59 Intake Total 4280.712 9759.421 Output Total 300 1600 Balance 1011.667 -507.579 Weight 92.1 kg 92.1 kg Intake: IV 1150 890 Cefepime 1 gm In Sodium 50 100 Chloride 0.9% 50 ml @ 100 mls/hr IVPB Q8H [facility] Rx#: [id number] Sodium Chloride 0.9% 1, 1100 540 000 ml @ 20 mls/hr IV . Q24H [facility] Rx#:[id number] Vancomycin 1,500 mg In 250 Sodium Chloride 0.9% 250 ml @ 125 mls/hr IVPB Q12H [facility] Rx#:[id number] Intake, IV Titration 161.667 202.421 Amount Heparin Sod,Pork in 0.45% 161.667 102.421 NaCl 25,000 unit In 0.45 % NaCl 1 250ml.bag @ 10 mls/hr IV .Q24H [facility] Rx#: [id number] Sodium Ferric Gluconat- 100 Sucrose 125 mg In Sodium Chloride 0.9% 100 ml @ 100 mls/hr IVPB DAILY [facility] Rx#:[id number] Output: Urine 1600 Urine/Stool Mix 300 Other: Voiding Method Bedpan Bedside Commode Bedside Commode # Voids 3 2 # Bowel Movements 1 - Exam Gen: This is a 52-year-old -[place]ic female. She is resting in ICU bed and appears to be comfortable and in no acute distress. HEENT: Head is atraumatic, normocephalic. Pupils equal, round. Sclerae is anicteric. Oral mucous membranes are moist. No erythema or edema of the oropharynx. Hoarseness noted. NECK: Supple. No JVD. No lymphadenopathy. No thyromegaly. LUNGS: Clear to auscultation. No wheezes or rhonchi. No intercostal retractions. HEART: Regular rate and rhythm. No murmur. ABDOMEN: Soft. Bowel sounds are present. No masses. Positive ascites. Generalized tenderness. EXTREMITIES: No pedal edema. No calf tenderness. Dorsalis pedis +2 bi laterally. NEUROLOGICAL: Patient is awake, alert and oriented x3 - Labs CBC & Chem 7: 08/19/18 05:50 08/19/18 05:50 Labs: Abnormal Lab Results - Last 24 Hours (Table) 08/19/18 08/19/18 08/19/18 Range/Units 05:50 05:50 05:50 WBC 12.9 H (3.8-10.6) k/uL RBC 2.89 L (3.80-5.40) m/uL Hgb 7.8 L (11.4-16.0) gm/dL Hct 23.4 L (34.0-46.0) % RDW 17.1 H (11.5-15.5) % Neutrophils # 11.5 H (1.3-7.7) k/uL Lymphocytes # 0.4 L (1.0-4.8) k/uL APTT 39.7 H (22.0-30.0) sec Chloride 111 H (98-107) mmol/L Glucose 105 H (74-99) mg/dL Calcium 7.7 L (8.4-10.2) mg/dL 08/19/18 Range/Units 13:30 WBC (3.8-10.6) k/uL RBC (3.80-5.40) m/uL Hgb (11.4-16.0) gm/dL Hct (34.0-46.0) % RDW (11.5-15.5) % Neutrophils # (1.3-7.7) k/uL Lymphocytes # (1.0-4.8) k/uL APTT 60.7 H (22.0-30.0) sec Chloride (98-107) mmol/L Glucose (74-99) mg/dL Calcium (8.4-10.2) mg/dL Microbiology - Last 24 Hours (Table) 08/17/18 14:00 Gram Stain - Final Axilla - Left Wound Culture - Final 08/15/18 20:25 Blood Culture - Preliminary Blood No Growth after 72 hours Laboratory Results WBC 12.9 k/uL (3.8-10.6) H 08/19/18 05:50 RBC 2.89 m/uL (3.80-5.40) L 08/19/18 05:50 Hgb 7.8 gm/dL (11.4-16.0) L 08/19/18 05:50 Hct 23.4 % (34.0-46.0) L 08/19/18 05:50 MCV 81.0 fL (80.0-100.0) 08/19/18 05:50 MCH 27.1 pg (25.0-35.0) 08/19/18 05:50 MCHC 33.4 g/dL (31.0-37.0) 08/19/18 05:50 RDW 17.1 % (11.5-15.5) H 08/19/18 05:50 Plt Count 275 k/uL (150-450) 08/19/18 05:50 Neutrophils % 90 % 08/19/18 05:50 Lymphocytes % 3 % 08/19/18 05:50 Monocytes % 4 % 08/19/18 05:50 Eosinophils % 2 % 08/19/18 05:50 Basophils % 0 % 08/19/18 05:50 Neutrophils # 11.5 k/uL (1.3-7.7) H 08/19/18 05:50 Lymphocytes # 0.4 k/uL (1.0-4.8) L 08/19/18 05:50 Monocytes # 0.6 k/uL (0-1.0) 08/19/18 05:50 Eosinophils # 0.2 k/uL (0-0.7) 08/19/18 05:50 Basophils # 0.0 k/uL (0-0.2) 08/19/18 05:50 Hypochromasia Slight 08/19/18 05:50 Poikilocytosis Slight 08/19/18 05:50 Anisocytosis Slight 08/19/18 05:50 Retic Count 1.6 % (0.5-2.0) 08/17/18 05:20 PT 13.1 sec (9.0-12.0) H 08/15/18 20:25 INR 1.3 (<1.2) H 08/15/18 20:25 APTT 60.7 sec (22.0-30.0) H 08/19/18 13:30 Sodium 138 mmol/L (137-145) 08/19/18 05:50 Potassium 4.0 mmol/L (3.5-5.1) 08/19/18 05:50 Chloride 111 mmol/L (98-107) H 08/19/18 05:50 Carbon Dioxide 22 mmol/L (22-30) 08/19/18 05:50 Anion Gap 5 mmol/L 08/19/18 05:50 BUN 8 mg/dL (7-17) 08/19/18 05:50 Creatinine 0.57 mg/dL (0.52-1.04) 08/19/18 05:50 Est GFR (CKD-EPI)AfAm >90 (>60 ml/min/1.73 sqM) 08/19/18 05:50 Est GFR (CKD-EPI)NonAf >90 (>60 ml/min/1.73 sqM) 08/19/18 05:50 Glucose 105 mg/dL (74-99) H 08/19/18 05:50 POC Glucose (mg/dL) 109 mg/dL (75-99) H 08/16/18 00:57 POC Glu Nuclear Logging Engineer ID Odette Barrera 08/16/18 00:57 Plasma Lactic Acid Chase 0.8 mmol/L (0.7-2.0) 08/15/18 20:25 Calcium 7.7 mg/dL (8.4-10.2) L 08/19/18 05:50 Magnesium 1.6 mg/dL (1.6-2.3) 08/17/18 05:20 Iron 7 ug/dL (50-170) L 08/17/18 05:20 TIBC 159 ug/dL (228-460) L 08/17/18 05:20 Iron Saturation 4.40 (12.00-45.00) L 08/17/18 05:20 Ferritin 266.3 ng/mL (10.0-291.0) 08/17/18 05:20 Total Bilirubin 0.8 mg/dL (0.2-1.3) 08/15/18 19:25 AST 22 U/L (14-36) 08/15/18 19:25 ALT 27 U/L (9-52) 08/15/18 19:25 Alkaline Phosphatase 123 U/L (38-126) 08/15/18 19:25 Ammonia <9 umol/L (<30) 08/15/18 20:25 Lactate Dehydrogenase 678 U/L (313-618) H 08/17/18 05:20 Troponin I <0.012 ng/mL (0.000-0.034) 08/15/18 19:25 Total Protein 6.5 g/dL (6.3-8.2) 08/15/18 19:25 Albumin 2.8 g/dL (3.5-5.0) L 08/15/18 19:25 Lipase 16 U/L (23-300) L 08/15/18 20:25 Vitamin B12 2441.0 pg/mL (200.0-944.0) H 08/17/18 05:20 Folate 19.5 ng/mL 08/17/18 05:20 Urine Color Yellow 08/15/18 22:22 Urine Appearance Clear (Clear) 08/15/18 22:22 Urine pH 7.0 (5.0-8.0) 08/15/18 22:22 Ur Specific [place] >1.050 (1.001-1.035) H 08/15/18 22:22 Urine Protein Trace (Negative) H 08/15/18 22:22 Urine Glucose (UA) Negative (Negative) 08/15/18 22:22 Urine Ketones 1+ (Negative) H 08/15/18 22:22 Urine Blood Large (Negative) H 08/15/18 22:22 Urine Nitrite Negative (Negative) 08/15/18 22:22 Urine Bilirubin Negative (Negative) 08/15/18 22:22 Urine Urobilinogen <2.0 mg/dL (<2.0) 08/15/18 22:22 Ur Leukocyte Esterase Trace (Negative) H 08/15/18 22:22 Urine RBC >182 /hpf (0-5) H 08/15/18 22:22 Ur Squamous Epith Cells 1 /hpf (0-4) 08/15/18 22:22 Urine Bacteria Rare /hpf (None) H 08/15/18 22:22 Urine HCG, Qual Not Detected (Not Detectd) 08/15/18 22:22 Stool Occult Blood Negative (Negative) 08/18/18 09:50 Vancomycin Trough 17.5 ug/mL 08/18/18 09:35 Influenza Type A RNA Not Detected (Not Detectd) 08/15/18 20:25 Influenza Type B (PCR) Not Detected (Not Detectd) 08/15/18 20:25 Blood Type O Positive 08/15/18 19:25 Blood Type Confirm O Positive 08/15/18 20:25 Blood Type Recheck CABO Indicated 08/15/18 19:25 Antibody Screen NEGATIVE 08/15/18 19:25 Crossmatch See Detail 08/15/18 19:25 Spec Expiration Date 08/18/2018232408/15/18 19:25 Microbiology 08/17/18 14:00 Axilla - Left Gram Stain - Final 08/17/18 14:00 Axilla - Left Wound Culture - Final 08/15/18 20:25 Blood Blood Culture - Preliminary No Growth after 72 hours 08/16/18 18:50 Urine,Clean Catch Urine Culture - Final Assessment and Plan (1) Metastatic lung cancer (metastasis from lung to other site) Narrative/Plan: 52 year old woman with several cancers who recently has completed a course of radiation therapy for her glottis cancer. She however is having recurrent ascites requiring paracentesis for comfort. She presents to hospital with high-grade fever up to 102.3 feeling very poorly. She has noted she has evidence of ascites, large complex abdominal mass. Upon presentation into the intensive care unit she has fever and anemia. Patient is also complaining of some tenderness in the left axillary area. With manipulation it does not drain and is quite tender. The plan for now will be antibiotic therapy with cefepime and vancomycin while cultures are pending. Oncology follow-up for delineate any particular plans. Unclear if there will be any surgical interventions are chemotherapy options here in the near future. 08/17/2018 the patient feels slightly better. She's having no further fever. The left axillary tenderness is stable to improved. Vaginal bleeding is improved. with the untreated metastatic lung cancer and the recent head and neck cancer. Antibiotic therapy continues for now while cultures are process. Patient's family is updated. 08/19/2018 patient feels better today. Continues to have difficulty with eating . he was supplements. No new fevers. No new positive cultures. Antibiotic therapy to de-escalate his cultures become available. Current Visit: Yes Status: Acute Priority: High Code(s): C34.90 - MALIGNANT NEOPLASM OF UNSP PART OF UNSP BRONCHUS OR LUNG SNOMED Code(s): 68131499
[2018-08-19] MEDS: CEFEPIME 2 GM in SODIUM CHLORIDE 0.9% 100 ML IVPB SCH (22:50)
[2018-08-19] MEDS: HEPARIN SOD,PORK IN 0.45% NACL 25,000 UNIT in 0.45% NACL 1 250ML.BAG IV SCH (22:57)
[2018-08-20] MEDS: VANCOMYCIN 1,500 MG in SODIUM CHLORIDE 0.9% 250 ML IVPB SCH ×3 (00:12→23:27)
[2018-08-20] MEDS: SODIUM CHLORIDE 0.9% 1,000 ML IV SCH (01:00)
[2018-08-20] MEDS: ACETAMINOPHEN TAB 325 MG TAB PO PRN ×2 (04:02→16:04)
[2018-08-20] MEDS: CEFEPIME 2 GM in SODIUM CHLORIDE 0.9% 100 ML IVPB SCH ×3 (06:04→21:29)
[2018-08-20] MEDS: HYDROmorphone 0.5 MG/0.5 ML SYRINGE IVP PRN ×5 (06:08→23:27)
[2018-08-20 06:18] LABS: Basophils % (A) 0 %; Eosinophils # (A) 0.2 k/uL (0-0.7); Eosinophils % (A) 1 %; HGB 7.7 gm/dL (11.4-16.0); Hypochromasia Slight; Lymphocytes # (A) 0.4 k/uL (1.0-4.8); Lymphocytes % (A) 3 %; MCH 26.6 pg (25.0-35.0); MCHC 31.9 g/dL (31.0-37.0); MCV 83.3 fL (80.0-100.0); Mean Platelet Volume 7.6; Monocytes # (A) 0.6 k/uL (0-1.0); Monocytes % (A) 5 %; Neutrophils # (A) 11.6 k/uL (1.3-7.7); Neutrophils % (A) 89 %; Platelet Count 266 k/uL (150-450); Poikilocytosis Slight; RBC 2.88 m/uL (3.80-5.40); RDW 15.4 % (11.5-15.5)
[2018-08-20 07:00] LABS: Anion Gap 6 mmol/L; Blood Urea Nitrogen 6 mg/dL (7-17); Calcium 8.1 mg/dL (8.4-10.2); Carbon Dioxide 22 mmol/L (22-30); Chloride 111 mmol/L (98-107); Glucose 95 mg/dL (74-99); Sodium 139 mmol/L (137-145)
[2018-08-20] MEDS: ALPRAZolam 0.25 MG TAB PO SCH ×2 (09:20→20:02)
[2018-08-20] MEDS: ATORVASTATIN 80 MG TAB PO SCH (09:21)
[2018-08-20] MEDS: PANTOPRAZOLE 40 MG/10 ML VIAL IVP SCH (09:21)
[2018-08-20] MEDS: METOPROLOL TARTRATE 12.5 MG TAB PO SCH ×2 (09:21→21:23)
[2018-08-20] MEDS: FOLIC ACID 1 MG TAB PO SCH (09:21)
[2018-08-20] MEDS: SODIUM FERRIC GLUCONAT-SUCROSE 125 MG in SODIUM CHLORIDE 0.9% 100 ML IVPB SCH (10:34)
--- NOTE | 2018-08-20 11:49 | P.PN ---
Subjective Progress Note Date: 08/20/18 CHIEF COMPLAINT: Left axilla abscess HISTORY OF PRESENT ILLNESS: Patient seen and examined at the bedside. Patient is status post I&D of left axillary abscess. Patient denies any further drainage. Area remain slightly tender. Cultures negative at 48 hours. PHYSICAL EXAM: VITAL SIGNS: Reviewed. GENERAL: Well-developed in no acute distress. HEENT: No sclera icterus. Extraocular movements grossly intact. Moist buccal mucosa. Head is atraumatic, normocephalic. ABDOMEN: Soft. Nondistended. Nontender. NEUROLOGIC: Alert and oriented. Cranial nerves II through XII grossly intact. SKIN: Small mass of left axilla. No drainage. ASSESSMENT: 1. Left axillary abscess, status post I&D PLAN: Patient may place warm compresses to left axillary region PRN to help facilitate drainage Gauze dressing if area begins to drain We will sign off. Please reconsult if needed Nurse practitioner note has been reviewed by physician. Signing provider agrees with the documented findings, assessment, and plan of care. Objective - Vital Signs Vital signs: Vital Signs Temp 98.3 F 08/20/18 08:20 Pulse 126 H 08/20/18 08:20 Resp 19 08/20/18 08:20 BP 112/67 08/20/18 08:20 Pulse Ox 100 08/20/18 08:20 Intake & Output 08/19/18 08/20/18 08/20/18 18:59 06:59 18:59 Intake Total 1240.000 222 Output Total 1600 1500 Balance -360.000 -1500 222 Weight 92.1 kg 83.3 kg Intake: IV 890 Cefepime 1 gm In Sodium 100 Chloride 0.9% 50 ml @ 100 mls/hr IVPB Q8H [facility] Rx#: [id number] Sodium Chloride 0.9% 1, 540 000 ml @ 20 mls/hr IV . Q24H [facility] Rx#:[id number] Vancomycin 1,500 mg In 250 Sodium Chloride 0.9% 250 ml @ 125 mls/hr IVPB Q12H [facility] Rx#:[id number] Intake, IV Titration 350.000 Amount Heparin Sod,Pork in 0.45% 250.000 NaCl 25,000 unit In 0.45 % NaCl 1 250ml.bag @ 10 mls/hr IV .Q24H [facility] Rx#: [id number] Sodium Ferric Gluconat- 100 Sucrose 125 mg In Sodium Chloride 0.9% 100 ml @ 100 mls/hr IVPB DAILY [facility] Rx#:[id number] Oral 222 Output: Urine 1600 1500 Other: Voiding Method Bedside Commode Bedside Commode Bedside Commode # Voids 2 1 # Bowel Movements 1 - Labs CBC & Chem 7: 08/20/18 05:49 08/20/18 05:49 Labs: Abnormal Lab Results - Last 24 Hours (Table) 08/19/18 08/20/18 08/20/18 Range/Units 13:30 05:49 05:49 WBC 13.0 H (3.8-10.6) k/uL RBC 2.88 L (3.80-5.40) m/uL Hgb 7.7 L (11.4-16.0) gm/dL Hct 24.0 L (34.0-46.0) % Neutrophils # 11.6 H (1.3-7.7) k/uL Lymphocytes # 0.4 L (1.0-4.8) k/uL APTT 60.7 H (22.0-30.0) sec Chloride 111 H (98-107) mmol/L BUN 6 L (7-17) mg/dL Calcium 8.1 L (8.4-10.2) mg/dL 08/20/18 Range/Units 05:49 WBC (3.8-10.6) k/uL RBC (3.80-5.40) m/uL Hgb (11.4-16.0) gm/dL Hct (34.0-46.0) % Neutrophils # (1.3-7.7) k/uL Lymphocytes # (1.0-4.8) k/uL APTT 65.5 H (22.0-30.0) sec Chloride (98-107) mmol/L BUN (7-17) mg/dL Calcium (8.4-10.2) mg/dL Microbiology - Last 24 Hours (Table) 08/15/18 20:25 Blood Culture - Preliminary Blood No Growth after 96 hours 08/17/18 14:00 Gram Stain - Final Axilla - Left Wound Culture - Final
--- NOTE | 2018-08-20 18:37 | XR ---
EXAMINATION TYPE: XR chest 1V portable DATE OF EXAM: 08/20/2018 COMPARISON: 08/15/2018 HISTORY: Fever TECHNIQUE: Single frontal view of the chest is obtained. FINDINGS: There is slight blunting of the costophrenic angles. There is no heart failure. There is p oor inspiration. There are chest leads. IMPRESSION: There are new small pleural effusions compared to old exam. No gross heart failure.
--- NOTE | 2018-08-20 19:55 | PN ---
PROGRESS NOTE DATE OF SERVICE: 08/20/2018 This 52-year-old woman who was admitted with significant abdominal pain, fever and left leg swelling and features of sepsis. The cultures are negative. The patient on broad spectrum IV antibiotics. Patient also had anemia. Patient had some bleeding which is getting better at this time. Hemoglobin is 7.7 at this time. Please note the patient also received 1 unit transfusion. PAST MEDICAL HISTORY: Reviewed. REVIEW OF SYSTEMS: CARDIOVASCULAR: No angina or palpitations. RESPIRATORY: As mentioned earlier. GASTROINTESTINAL: As mentioned earlier. : No dysuria. CENTRAL NERVOUS SYSTEM: No numbness or weakness. MEDICATION: Current medications are reviewed and include: 1. Tylenol 650 q.4 p.r.n. 2. Xanax. 3. Lipitor 80 mg. 5. Folic acid. 6. Dilaudid p.r.n. 7. Vancomycin. 8. Zofran. 9. Percocet. 10.Protonix. 11.Restoril. 12.Vancomycin. 13.Doses reviewed. PHYSICAL EXAM: Patient is alert, oriented x2. Pulse is 125, blood pressure 111/60, respiration 19, temperature 101.1, pulse ox 94% on 2 L. HEENT is conjunctivae normal. Neck is no jugular venous distention. CARDIOVASCULAR: S1, S2 muffled. Respirations: Breath sounds diminished in the bases. Bilateral scattered rhonchi and crackles. ABDOMEN: Soft, nontender. Legs are no edema. No swelling. CENTRAL NERVOUS SYSTEM: Mild diffuse weakness. LABS: WBC 13.3, hemoglobin 7.7. APTT 65.4. Sodium 130. Potassium 3. ASSESSMENT: 1. Abdominal pain, fever, left axillary swelling with possible sepsis present on admission. 2. Continued fever. 3. Axillary abscess status post incision and drainage with broad-spectrum IV antibiotics. 4. Genitourinary bleeding as well as acute on chronic blood-loss anemia, possibly secondary to metastatic malignancy. 5. Possible lung cancer with multiple METS to the peritoneum as well as liver. 6. Heparin monitoring. 7. Ovarian tumor, possibly right lung malignancy. 8. Was on Eliquis previously. 9. History of pulmonary embolus. 10.Hyponatremia. 11.Previous history of gastroesophageal reflux disease. 12.Hypertension. 13.Hyperlipidemia. 14.History of myocardial infarction. 15.History of brain aneurysm. 16.History of lung cancer. 17.History of anxiety. 18.History of panic disorder. 19.History nicotine dependence. 20.FULL CODE. RECOMMENDATIONS AND DISCUSSION: I recommend to continue current medications, monitoring, and continue antibiotics. I would recommend a set of repeat cultures at this time. Otherwise, continue to monitor. Discussed with Dr. Fatima at length. 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 Otherwise, continue to monitor. Repeat labs will be ordered. Prognosis guarded because of multiple complex medical issues. Further recommendations to follow. See orders for details. MMODL / IJN: [id number] / MTDD
[2018-08-20] MEDS: HEPARIN SOD,PORK IN 0.45% NACL 25,000 UNIT in 0.45% NACL 1 250ML.BAG IV SCH (21:24)
--- NOTE | 2018-08-20 21:50 | P.CONS ---
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 This was treated with lobectomy in 07/2015. More recently, she was diagnosed with a stage II larynx cancer which was treated with defintiive radiotherapy finishing in 05/2018. Unfortunately, she was recently diagnosed with relapse of her previous lung cancer with metastatic disease to the liver and malignant ascites. She was hospitalized 08/15 due to feeling light headed and increased vaginal bleeding. During a previous hospital stay last month, the patient was found to have PE and started on Eliquis. She notes that she started having vaginal bleeding (menopause 2 years ago) shortly thereafter. She reports passing clots. CT of he A/P from 08/15 showed moderate ascites, a 12 x 8 cm cystic right pelvic mass with 4 cm soft tissue density centrally and redemonstrated small liver metastases. Her hemoglobin dropped down to 6.9 and after transfusion has been holding at 7.6-7.7 The patient reports that since her hospitalization, the vaginal bleeding has improved. She notes that today she woke up with a very small amount, and did not have any bleeding the last 2times she used the restroom. Her biggest complaint at the current time seems to be that she has had very poor appetite lately. She notes a metallic taste and that even the smell of many foods she used to like is offensive to her. She notes this was not a problem during or immediately after radiotherapy in June. She expresses a lot of frustration regarding her diagnosis. Review of Systems Constitutional: Denies fatigue, Denies fever Eyes: bilateral blurred vision Ears, nose, mouth and throat: Denies headache Cardiovascular: Denies chest pain, Denies dyspnea on exertion Respiratory: Denies cough Gastrointestinal: Reports bloating, Reports early satiety Menstruation: Reports postmenopausal Musculoskeletal: Reports low back pain Neurological: Denies confusion Past Medical History Past Medical History: Cancer, GERD/Reflux, Hyperlipidemia, Hypertension, Myocardial Infarction ([place]) Additional Past Medical History / Comment(s): BRAIN ANEURSYM, LUNG CA, CARPAL TUNNEL RIGHT WRIST, throat CA dx apr 2018 Last Myocardial Infarction Date:: 04/30/2013 History of Any Multi-Drug Resistant Organisms: None Reported Past Surgical History: Heart Catheterization, Orthopedic Surgery, Tubal Ligation, Uterine Ablation Additional Past Surgical History / Comment(s): ANGIOPLASTY FOR BRAIN ANEURSYM, CARPEL TUNNEL RIGHT WRIST , and laparoscopy, PARTIAL RIGHT LUNG REMOVAL ,PTCA, Past Anesthesia/Blood Transfusion Reactions: No Reported Reaction Past Psychological History: Anxiety, Panic Disorder Smoking Status: Former smoker Past Alcohol Use History: None Reported Additional Past Alcohol Use History / Comment(s): Patient was a smoker and quit in April 2018. She denies any marijuana, illicit drug use or alcohol use. Her daughter is living with her. She is on disability. Past Drug Use History: None Reported - Past Family History Mother Family Medical History: Cancer Father Family Medical History: Cancer Medications and Allergies Home Medications Medication Instructions Recorded Confirmed Type Atorvastatin [Lipitor] 80 mg PO DAILY 10/21/13 08/15/18 History Ondansetron Odt [Zofran ODT] 4 mg PO Q8HR PRN #10 tab 07/21/18 08/15/18 Rx oxyCODONE-APAP 10-325MG [Percocet 1 tab PO Q4HR PRN 07/29/18 08/15/18 History 10-325 mg] Apixaban [Eliquis] 5 mg PO BID #60 tab.ds.pk 08/02/18 08/15/18 Rx Folic Acid 1 mg PO DAILY 08/15/18 08/15/18 History Allergies Allergy/AdvReac Type Severity Reaction Status Date / Time Penicillins Allergy Unknown Verified 08/15/18 19:44 Childhood Physical Exam Vitals: Vital Signs Temp Pulse Pulse Resp BP Pulse Ox 08/20/18 20:00 99.8 F H 96 121 H 15 120/76 96 08/20/18 18:59 93 L 08/20/18 16:00 101.1 F H 125 H 19 111/61 95 08/20/18 12:00 95 18 108/59 100 08/20/18 08:20 98.3 F 126 H 19 112/67 100 08/20/18 04:00 99.9 F H 96 112 H 15 116/65 93 L 08/20/18 00:00 98.6 F 96 120 H 15 112/63 93 L Intake and Output 08/20/18 08/20/18 08/20/18 06:59 14:59 22:59 Intake Total 1533 222 Output Total 1500 400 Balance -1500 1533 -178 Intake: IV 285 Sodium Chloride 0.9% 1, 160 000 ml @ 20 mls/hr IV . Q24H [facility] Rx#:[id number] Vancomycin 1,500 mg In 125 Sodium Chloride 0.9% 250 ml @ 125 mls/hr IVPB Q12H [facility] Rx#:[id number] Intake, IV Titration 360 Amount Cefepime 2 gm In Sodium 100 Chloride 0.9% 100 ml @ 200 mls/hr IVPB Q8H [facility] Rx#:[id number] Sodium Chloride 0.9% 1, 160 000 ml @ 20 mls/hr IV . Q24H [facility] Rx#:[id number] Sodium Ferric Gluconat- 100 Sucrose 125 mg In Sodium Chloride 0.9% 100 ml @ 100 mls/hr IVPB DAILY [facility] Rx#:[id number] Oral 888 222 Output: Urine 1500 400 Other: Voiding Method Bedside Commode Bedside Commode Bedside Commode # Voids 1 # Bowel Movements 1 Weight 83.3 kg - Constitutional General appearance: no acute distress - EENT Eyes: EOMI, PERRLA ENT: hearing grossly normal - Neck Neck: no lymphadenopathy - Respiratory Respiratory: bilateral: CTA - Cardiovascular Rhythm: regular - Gastrointestinal General gastrointestinal: decreased bowel sounds, distended, no tenderness - Integumentary Integumentary: no pale - Neurologic Neurologic: CNII-XII intact - Musculoskeletal Musculoskeletal: strength equal bilaterally - Psychiatric Psychiatric: A&O x's 3, appropriate affect Results CBC & Chem 7: 08/20/18 05:49 08/20/18 05:49 Labs: Abnormal Lab Results - Last 24 Hours (Table) 08/20/18 08/20/18 08/20/18 Range/Units 05:49 05:49 05:49 WBC 13.0 H (3.8-10.6) k/uL RBC 2.88 L (3.80-5.40) m/uL Hgb 7.7 L (11.4-16.0) gm/dL Hct 24.0 L (34.0-46.0) % Neutrophils # 11.6 H (1.3-7.7) k/uL Lymphocytes # 0.4 L (1.0-4.8) k/uL APTT 65.5 H (22.0-30.0) sec Chloride 111 H (98-107) mmol/L BUN 6 L (7-17) mg/dL Calcium 8.1 L (8.4-10.2) mg/dL Microbiology - Last 24 Hours (Table) 08/19/18 16:45 Blood Culture - Preliminary Blood No Growth after 24 hours 08/15/18 20:25 Blood Culture - Preliminary Blood No Growth after [address] scan - abdomen: report reviewed, image reviewed CT scan - pelvis: report reviewed, image reviewed Assessment and Plan Plan: The patient is a 52 year old female with a history of an 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 This was treated with lobectomy in 07/2015. More recently, she was diagnosed with a stage II larynx cancer which was treated with defintiive radiotherapy finishing in 05/2018. Unfortunately, she was recently diagnosed with relapse of her previous lung cancer with metastatic disease to the liver and malignant ascites. She was hospitalized 08/15 due to feeling light headed and increased vaginal bleeding. 1. Vaginal bleeding: Concern for extension from pelvic mass (possible metastatic deposit from lung cancer vs less likely second gynecologic primary) exacerbated by blood-thinner use. Patient still on IV heparin, but per patient amount of bleeding has improved and seems to have stopped today. I discussed that if bleeding re-starts palliative radiotherapy may be an option. Patient initially not enthusiastic about this suggestion. I intend to review her imaging further with radiology. Will continue to follow and trend H/H. 2. Metastatic lung cancer: The patient is having difficulty coping with this. She is understandably upset and has trouble understanding why this would show up again years later. 3. Food aversion/metallic taste: Uncertain of etiology; would be unusual to be from radiotherapy to the larynx which excludes the tongue. Perhaps megace or a similar appetite stimulant would be helpful. Time with Patient: Greater than 30
--- NOTE | 2018-08-20 22:08 | P.PN ---
Subjective Progress Note Date: 08/20/18 Principal diagnosis: Ascites The patient is seen lying in bed. No nausea vomiting or abdominal pain reported. She reports that the dietary supplements are making her have loose stool. She is still having an overall poor appetite. Objective - Vital Signs Vital signs: Vital Signs Temp 99.8 F H 08/20/18 20:00 Pulse 121 H 08/20/18 20:00 Resp 15 08/20/18 20:00 BP 120/76 08/20/18 20:00 Pulse Ox 96 08/20/18 20:00 Intake & Output 08/20/18 08/20/18 08/21/18 06:59 18:59 06:59 Intake Total 2004 Output Total 1500 400 Balance -1500 1605 Weight 83.3 kg Intake: IV 285 Sodium Chloride 0.9% 1, 160 000 ml @ 20 mls/hr IV . Q24H [facility] Rx#:[id number] Vancomycin 1,500 mg In 125 Sodium Chloride 0.9% 250 ml @ 125 mls/hr IVPB Q12H [facility] Rx#:[id number] Intake, IV Titration 610 Amount Cefepime 2 gm In Sodium 100 Chloride 0.9% 100 ml @ 200 mls/hr IVPB Q8H [facility] Rx#:[id number] Heparin Sod,Pork in 0.45% 250 NaCl 25,000 unit In 0.45 % NaCl 1 250ml.bag @ 10 mls/hr IV .Q24H [facility] Rx#: [id number] Sodium Chloride 0.9% 1, 160 000 ml @ 20 mls/hr IV . Q24H [facility] Rx#:[id number] Sodium Ferric Gluconat- 100 Sucrose 125 mg In Sodium Chloride 0.9% 100 ml @ 100 mls/hr IVPB DAILY [facility] Rx#:[id number] Oral 1110 Output: Urine 1500 400 Other: Voiding Method Bedside Commode Bedside Commode Bedside Commode # Voids 1 # Bowel Movements 1 - Exam On physical examination, patient appears comfortable in no apparent distress. HEAD: Normocephalic, atraumatic. EYES: No scleral icterus. No conjunctival injection. MOUTH: No lesions, tongue midline. NECK: Trachea midline, darkening of skin in the area of radiation therapy. CHEST: Decreased air entry in all lung cano. ABDOMEN: Soft, obese. Bowel sounds are positive. No organomegaly. No guarding or rigidity. EXTREMITIES: No pedal edema. SKIN: No jaundice. NEUROLOGIC: Alert and oriented x3. No focal deficits. - Labs CBC & Chem 7: 08/20/18 05:49 08/20/18 05:49 Labs: Abnormal Lab Results - Last 24 Hours (Table) 08/20/18 08/20/18 08/20/18 Range/Units 05:49 05:49 05:49 WBC 13.0 H (3.8-10.6) k/uL RBC 2.88 L (3.80-5.40) m/uL Hgb 7.7 L (11.4-16.0) gm/dL Hct 24.0 L (34.0-46.0) % Neutrophils # 11.6 H (1.3-7.7) k/uL Lymphocytes # 0.4 L (1.0-4.8) k/uL APTT 65.5 H (22.0-30.0) sec Chloride 111 H (98-107) mmol/L BUN 6 L (7-17) mg/dL Calcium 8.1 L (8.4-10.2) mg/dL Microbiology - Last 24 Hours (Table) 08/19/18 16:45 Blood Culture - Preliminary Blood No Growth after 24 hours 08/15/18 20:25 Blood Culture - Preliminary Blood No Growth after 96 hours Assessment and Plan (1) Malignant ascites Narrative/Plan: Patient with known history of metastatic lung cancer with malignant ascites identified on paracentesis during the patient's last admission, with a ascitic fluid removed on 2 occasions the first with 5.9 L removed and the second with 1.8 L removed both in July. At this time lab evaluation was not consistent with spontaneous bacterial peritonitis and cytology was consistent with malignant ascites. Patient presents back to the hospital complaining of abdominal discomfort with subjective fevers. Current Visit: No Status: Acute Code(s): R18.0 - MALIGNANT ASCITES SNOMED Code(s): 822503029 (2) Abdominal pain Narrative/Plan: Secondary to above Current Visit: Yes Status: Acute Code(s): R10.9 - UNSPECIFIED ABDOMINAL PAIN SNOMED Code(s): 81845957 (3) Metastatic lung cancer (metastasis from lung to other site) Current Visit: Yes Status: Acute Priority: High Code(s): C34.90 - MALIGNANT NEOPLASM OF UNSP PART OF UNSP BRONCHUS OR LUNG SNOMED Code(s): 44553351 Plan: Supportive care Okay for diet Ensure clear was ordered 3 times daily, as the patient has reported loose stool with regular ensure suspicion is for lactose intolerance Patient was sent for paracentesis, however only small pockets of ascites seen, ascitic fluid secondary to carcinomatosis Infectious disease service is following Agree with empiric antibiotic treatment Thank you for allowing us to participate in the care of the patient we will standby at this time, please call us back with any questions or concerns
--- NOTE | 2018-08-20 22:25 | P.PN ---
Subjective Progress Note Date: 08/20/18 Principal diagnosis: Lung Cancer Hemoglobin is remaining stable and not significant vaginal bleeding. Abdominal pain although is still intermittently significant and current symptom control is appropriate and providing relief Objective - Vital Signs Vital signs: Vital Signs Temp 99.8 F H 08/20/18 20:00 Pulse 121 H 08/20/18 20:00 Resp 15 08/20/18 20:00 BP 120/76 08/20/18 20:00 Pulse Ox 96 08/20/18 20:00 Intake & Output 08/20/18 08/20/18 08/21/18 06:59 18:59 06:59 Intake Total 2004 Output Total 1500 400 Balance -1500 1605 Weight 83.3 kg Intake: IV 285 Sodium Chloride 0.9% 1, 160 000 ml @ 20 mls/hr IV . Q24H [facility] Rx#:[id number] Vancomycin 1,500 mg In 125 Sodium Chloride 0.9% 250 ml @ 125 mls/hr IVPB Q12H [facility] Rx#:[id number] Intake, IV Titration 610 Amount Cefepime 2 gm In Sodium 100 Chloride 0.9% 100 ml @ 200 mls/hr IVPB Q8H [facility] Rx#:[id number] Heparin Sod,Pork in 0.45% 250 NaCl 25,000 unit In 0.45 % NaCl 1 250ml.bag @ 10 mls/hr IV .Q24H [facility] Rx#: [id number] Sodium Chloride 0.9% 1, 160 000 ml @ 20 mls/hr IV . Q24H [facility] Rx#:[id number] Sodium Ferric Gluconat- 100 Sucrose 125 mg In Sodium Chloride 0.9% 100 ml @ 100 mls/hr IVPB DAILY [facility] Rx#:[id number] Oral 1110 Output: Urine 1500 400 Other: Voiding Method Bedside Commode Bedside Commode Bedside Commode # Voids 1 # Bowel Movements 1 - Exam - Constitutional General appearance: average body habitus, cooperative, mild distress - EENT dry mucus membranes Eyes: anicteric sclerae, EOMI ENT: hearing grossly normal - Neck Neck: no lymphadenopathy - Respiratory Respiratory: bilateral: CTA - Cardiovascular Heart sounds: normal: S1, S2 - Gastrointestinal General gastrointestinal: no absent bowel sounds, no decreased bowel sounds, distended, no hepatomegaly, no hyperactive bowel sounds, normal bowel sounds, no organomegaly, no rigid, no scaphoid, soft, no splenomegaly, tenderness, no umbilical hernia, no ventral hernia - Integumentary Integumentary: normal - Neurologic Neurologic: CNII-XII intact - Musculoskeletal Musculoskeletal: generalized weakness, strength equal bilaterally - Psychiatric Psychiatric: A&O x's 3, appropriate affect, intact judgment & insight - Labs CBC & Chem 7: 08/20/18 05:49 08/20/18 05:49 Labs: Abnormal Lab Results - Last 24 Hours (Table) 08/20/18 08/20/18 08/20/18 Range/Units 05:49 05:49 05:49 WBC 13.0 H (3.8-10.6) k/uL RBC 2.88 L (3.80-5.40) m/uL Hgb 7.7 L (11.4-16.0) gm/dL Hct 24.0 L (34.0-46.0) % Neutrophils # 11.6 H (1.3-7.7) k/uL Lymphocytes # 0.4 L (1.0-4.8) k/uL APTT 65.5 H (22.0-30.0) sec Chloride 111 H (98-107) mmol/L BUN 6 L (7-17) mg/dL Calcium 8.1 L (8.4-10.2) mg/dL Microbiology - Last 24 Hours (Table) 08/19/18 16:45 Blood Culture - Preliminary Blood No Growth after 24 hours 08/15/18 20:25 Blood Culture - Preliminary Blood No Growth after 96 hours Assessment and Plan Plan: Abdominal x-ray: report reviewed CT scan - abdomen: report reviewed CT scan - pelvis: report reviewed Assessment and Plan (1) Fever - Likely Secondary Left Axillary Boil/Abscess - Infectious Disease Following - Reviewed Surgical Note, no intervention at this time - Empiric antibiotics to continue (2) Metastatic lung cancer (metastasis from lung to other site) - Liver and ascites Fluid) - Recent Recurrence with diffuse Metastatic Disease - MRI Brain was ordered as outpatient for initial staging, she missed this secondary to hospitalization, will need to re-order at discharge - Awaiting Molecular tests on liver biopsy and recurrent ascites - Awaiting molecular testing at this time to start systemic therapy. If the patient does not have an appropriate target, she'll be treated with carboplatin, Alimta, and Keytruda (3) Vaginal bleeding - Wet Roller evaluation without significant or persistent bleeding identified - Eliquis stopped due to precipitous drop in Hgb, close monitoring for bleeding, Hgb monitoring. Transfuse for Hgb<7 or if symptomatic. - May have to consider IVC filter if bleeding represents (4) Pulmonary emboli - Diagnosed 07/29. - In the setting of metastatic disease and very recent diagnosis of PE may need to consider IVC filter. - Will await Wet Roller consult and recommendations regarding the vaginal bleeding. - Heparin drip and close monitoring for bleeding prior to converting back to DOAC or PO - [employer] did provide evaluation without evidence of persistent bleeding, therefore heparin drip was restarted, she has been monitored greater than 24 hours on heparin drip and has not dramatically dropped her hemoglobin and thus far her vaginal bleeding has not recurred. There is scant intermittent per patient but appears controlled not worsened this far on anticoagulation, continue to monitor CBC (5) Recurrent Abdominal Ascites: - Continue Therapeutic PRN Paracentesis (6) History of Early Stage Laryngeal Cancer
[2018-08-21] MEDS: SODIUM CHLORIDE 0.9% 1,000 ML IV SCH (00:05)
[2018-08-21] MEDS: CEFEPIME 2 GM in SODIUM CHLORIDE 0.9% 100 ML IVPB SCH ×3 (06:10→23:55)
[2018-08-21 07:44] LABS: Anion Gap 6 mmol/L; Blood Urea Nitrogen 5 mg/dL (7-17); Calcium 8.4 mg/dL (8.4-10.2); Carbon Dioxide 22 mmol/L (22-30); Chloride 111 mmol/L (98-107); Glucose 86 mg/dL (74-99); Sodium 139 mmol/L (137-145)
[2018-08-21] MEDS: HYDROmorphone 0.5 MG/0.5 ML SYRINGE IVP PRN ×4 (07:59→21:11)
[2018-08-21] MEDS: PANTOPRAZOLE 40 MG/10 ML VIAL IVP SCH (08:03)
[2018-08-21] MEDS: FOLIC ACID 1 MG TAB PO SCH (08:06)
[2018-08-21] MEDS: ATORVASTATIN 80 MG TAB PO SCH (08:06)
[2018-08-21] MEDS: METOPROLOL TARTRATE 12.5 MG TAB PO SCH ×2 (08:06→21:10)
[2018-08-21] MEDS: ALPRAZolam 0.25 MG TAB PO SCH ×2 (08:07→21:11)
[2018-08-21 09:19] LABS: HCT 23.6 % (34.0-46.0); HGB 7.4 gm/dL (11.4-16.0); Hypochromasia Slight; MCH 26.3 pg (25.0-35.0); MCHC 31.2 g/dL (31.0-37.0); MCV 84.2 fL (80.0-100.0); Platelet Count 287 k/uL (150-450); Poikilocytosis Slight; RDW 15.7 % (11.5-15.5)
[2018-08-21] MEDS ORDERED: VANCOMYCIN TROUGH DUE 1 EACH MISC MISCELLANE ONE (10:00)
[2018-08-21] MEDS: SODIUM FERRIC GLUCONAT-SUCROSE 125 MG in SODIUM CHLORIDE 0.9% 100 ML IVPB SCH (10:00)
[2018-08-21] MEDS: VANCOMYCIN 1,500 MG in SODIUM CHLORIDE 0.9% 250 ML IVPB SCH ×2 (12:43→23:55)
[2018-08-21 14:07] LABS: Band Neutrophils % 1 %; Eosinophils # (M) 0.18 k/uL (0-0.7); Lymphocytes # (M) 0.35 k/uL (1.0-4.8); Metamyelocytes # (M) 0.18 k/uL (0); Metamyelocytes % 1 %; Myelocytes # (M) 0.18 k/uL (0); Myelocytes % 1 %; Neutrophils % (M) 90 %; Nucleated Red Blood Cells 1 /100 WBC (0-0); Total Cells Counted 200
[2018-08-21 14:08] LABS: Monocytes # (M) 0.88 k/uL (0-1.0); WBC 17.5 k/uL (3.8-10.6)
--- NOTE | 2018-08-21 16:47 | P.PN ---
Subjective Progress Note Date: 08/21/18 Principal diagnosis: Lung Cancer Feeling a little better today, molecular tests resulted with positive PDL which add the options of immune therapy Objective - Vital Signs Vital signs: Vital Signs Temp 99.5 F 08/21/18 12:00 Pulse 121 H 08/21/18 12:00 Resp 18 08/21/18 12:00 BP 119/68 08/21/18 12:00 Pulse Ox 94 L 08/21/18 12:00 Intake & Output 08/20/18 08/21/18 08/21/18 18:59 06:59 18:59 Intake Total 2004 480 240 Output Total 400 2200 Balance 1605 -1720 240 Weight 85 kg Intake: IV 285 Sodium Chloride 0.9% 1, 160 000 ml @ 20 mls/hr IV . Q24H [facility] Rx#:[id number] Vancomycin 1,500 mg In 125 Sodium Chloride 0.9% 250 ml @ 125 mls/hr IVPB Q12H [facility] Rx#:[id number] Intake, IV Titration 610 Amount Cefepime 2 gm In Sodium 100 Chloride 0.9% 100 ml @ 200 mls/hr IVPB Q8H [facility] Rx#:[id number] Heparin Sod,Pork in 0.45% 250 NaCl 25,000 unit In 0.45 % NaCl 1 250ml.bag @ 10 mls/hr IV .Q24H [facility] Rx#: [id number] Sodium Chloride 0.9% 1, 160 000 ml @ 20 mls/hr IV . Q24H [facility] Rx#:[id number] Sodium Ferric Gluconat- 100 Sucrose 125 mg In Sodium Chloride 0.9% 100 ml @ 100 mls/hr IVPB DAILY [facility] Rx#:[id number] Oral 1110 480 240 Output: Urine 400 2200 Other: Voiding Method Bedside Commode Bedside Commode # Voids 1 - Exam - Constitutional General appearance: average body habitus, cooperative, mild distress - EENT dry mucus membranes Eyes: anicteric sclerae, EOMI ENT: hearing grossly normal - Neck Neck: no lymphadenopathy - Respiratory Respiratory: bilateral: CTA - Cardiovascular Heart sounds: normal: S1, S2 - Gastrointestinal General gastrointestinal: no absent bowel sounds, no decreased bowel sounds, distended, no hepatomegaly, no hyperactive bowel sounds, normal bowel sounds, no organomegaly, no rigid, no scaphoid, soft, no splenomegaly, tenderness, no umbilical hernia, no ventral hernia - Integumentary Integumentary: normal - Neurologic Neurologic: CNII-XII intact - Musculoskeletal Musculoskeletal: generalized weakness, strength equal bilaterally - Psychiatric Psychiatric: A&O x's 3, appropriate affect, intact judgment & insight - Labs CBC & Chem 7: 08/21/18 06:30 08/21/18 06:30 Labs: Abnormal Lab Results - Last 24 Hours (Table) 08/21/18 08/21/18 08/21/18 Range/Units 06:30 06:30 06:30 WBC 17.5 H (3.8-10.6) k/uL RBC 2.80 L (3.80-5.40) m/uL Hgb 7.4 L (11.4-16.0) gm/dL Hct 23.6 L (34.0-46.0) % RDW 15.7 H (11.5-15.5) % Neutrophils # (Manual) 15.90 H (1.3-7.7) k/uL Lymphocytes # (Manual) 0.35 L (1.0-4.8) k/uL Metamyelocytes # (Man) 0.18 H (0) k/uL Myelocytes # (Manual) 0.18 H (0) k/uL Nucleated RBCs 1 H (0-0) /100 WBC APTT 63.5 H (22.0-30.0) sec Chloride 111 H (98-107) mmol/L BUN 5 L (7-17) mg/dL Creatinine 0.51 L (0.52-1.04) mg/dL Microbiology - Last 24 Hours (Table) 08/20/18 21:00 Urine Culture - Preliminary Urine,Clean Catch 08/15/18 20:25 Blood Culture - Preliminary Blood No Growth after 120 hours 08/19/18 16:45 Blood Culture - Preliminary Blood No Growth after 24 hours Assessment and Plan Plan: Abdominal x-ray: report reviewed CT scan - abdomen: report reviewed CT scan - pelvis: report reviewed Assessment and Plan (1) Fever - Likely Secondary Left Axillary Boil/Abscess - Infectious Disease Following - Reviewed Surgical Note, no intervention at this time - Empiric antibiotics to continue - Fever T-Max in 24 hours 101.2 (2) Metastatic lung cancer (metastasis from lung to other site) - Liver and ascites Fluid) - Recent Recurrence with diffuse Metastatic Disease - MRI Brain was ordered as outpatient for initial staging, she missed this secondary to hospitalization, will need to re-order at discharge - Awaiting Molecular tests on liver biopsy and recurrent ascites - Awaiting molecular testing at this time to start systemic therapy. If the patient does not have an appropriate target, she'll be treated with carboplatin, Alimta, and Keytruda - Radiation Oncology has been consulted to evaluate (3) Vaginal bleeding - Loss Prevention Agent evaluation without significant or persistent bleeding identified - Eliquis stopped due to precipitous drop in Hgb, close monitoring for bleeding, Hgb monitoring. Transfuse for Hgb<7 or if symptomatic. - May have to consider IVC filter if bleeding represents (4) Pulmonary emboli - Diagnosed 07/29. - In the setting of metastatic disease and very recent diagnosis of PE may need to consider IVC filter. - Will await Loss Prevention Agent consult and recommendations regarding the vaginal bleeding. - Heparin drip and close monitoring for bleeding prior to converting back to DOAC or PO - JELLY FILTER TENDER did provide evaluation without evidence of persistent bleeding, therefore heparin drip was restarted, she has been monitored greater than 24 hours on heparin drip and has not dramatically dropped her hemoglobin and thus far her vaginal bleeding has not recurred. There is scant intermittent per patient but appears controlled not worsened this far on anticoagulation, continue to monitor CBC - Radiaiton Oncology has been consulted to assess (5) Recurrent Abdominal Ascites: - Continue Therapeutic PRN Paracentesis (6) History of Early Stage Laryngeal Cancer
--- NOTE | 2018-08-22 00:22 | PN ---
PROGRESS NOTE DATE OF SERVICE: 08/21/2018 This 52-year-old woman was admitted with significant abdominal pain and fever, also had some vaginal bleeding also. The patient had features of sepsis and the patient is on broad spectrum IV antibiotics also. Cultures are negative so far. Multiple consultants are following the patient closely. Radiation Oncology also evaluated the patient. Hemoglobin 7.4 at this time. White count is elevated at 17.5. PAST MEDICAL HISTORY: Reviewed. REVIEW OF SYSTEMS: CARDIOVASCULAR: No angina or palpitations. Respiration: As mentioned earlier. GI as mentioned earlier. : As mentioned earlier. Central nervous system: No numbness, weakness. CURRENT MEDICATIONS: Reviewed and include: 1. Tylenol p.r.n. 2. Xanax 0.5 t.i.d. 3. Lipitor 80 mg daily. 4. 2 g IV q.8. 5. Folic acid. 6. Heparin. 7. Dilaudid. 8. Lopressor. 9. Zofran. 10.Percocet. 11.Restoril. 12.Vancomycin. PHYSICAL EXAM: Patient is alert, oriented x3. Pulse is 111, blood pressure 115/62, respiration 18, temperature 99.9, pulse ox 98% on 2 L. HEENT: Conjunctivae normal. NECK: No jugular venous distention. CARDIOVASCULAR: S1, S2. RESPIRATORY: Breath sounds diminished in the bases. A few scattered rhonchi and crackles. ABDOMEN: Soft, nontender. LEGS: No edema. No swelling. CENTRAL NERVOUS SYSTEM: No focal deficits. LABS: At this time show WBC 17.5, hemoglobin 7.4, otherwise sodium 139, potassium 4, vancomycin 19. ASSESSMENT: 1. Abdominal pain, fever, left axillary swelling with possible sepsis present on admission. 2. Continued fever. 3. Axillary abscess status post incision and drainage with broad-spectrum IV antibiotics. 4. Genitourinary bleeding as well as acute on chronic blood-loss anemia possibly secondary to metastatic malignancy. 5. Possible lung cancer with multiple METS to the peritoneum as well as liver. 6. Heparin monitoring. 7. Ovarian tumor, possibly right lung malignancy. 9. History of pulmonary embolism. 10.Hyponatremia. 11.Previous history of gastroesophageal reflux disease. 12.Hypertension. 13.Hyperlipidemia. 14.History of myocardial infarction. 15.History of brain aneurysm. 16.History of lung cancer. 17.History of anxiety. 18.Panic disorder. 19.History of nicotine dependence. 20.FULL CODE. RECOMMENDATIONS AND DISCUSSION: Recommend to continue current medications, monitoring and symptomatic treatment. Otherwise, at this time, I recommend repeat labs in the morning. Otherwise, we will discuss with Dr. Fatima regarding long-term anticoagulant and current plan. Otherwise, prognosis guarded because of multiple complex medical issues. Further recommendations to follow. CYN / ISISN: [id number] / MTDD
[2018-08-22] MEDS: HYDROmorphone 0.5 MG/0.5 ML SYRINGE IVP PRN ×5 (03:18→22:53)
[2018-08-22] MEDS: HEPARIN SOD,PORK IN 0.45% NACL 25,000 UNIT in 0.45% NACL 1 250ML.BAG IV SCH (04:39)
[2018-08-22] MEDS: SODIUM CHLORIDE 0.9% 1,000 ML IV SCH ×2 (04:40→22:57)
[2018-08-22] MEDS: CEFEPIME 2 GM in SODIUM CHLORIDE 0.9% 100 ML IVPB SCH ×3 (05:55→23:00)
[2018-08-22 07:18] LABS: Anion Gap 5 mmol/L; Blood Urea Nitrogen 6 mg/dL (7-17); Calcium 8.3 mg/dL (8.4-10.2); Carbon Dioxide 22 mmol/L (22-30); Chloride 113 mmol/L (98-107); Glucose 91 mg/dL (74-99); Potassium 3.7 mmol/L (3.5-5.1); Sodium 140 mmol/L (137-145)
[2018-08-22] MEDS: ATORVASTATIN 80 MG TAB PO SCH (08:34)
[2018-08-22] MEDS: METOPROLOL TARTRATE 12.5 MG TAB PO SCH ×2 (08:34→22:53)
[2018-08-22] MEDS: PANTOPRAZOLE 40 MG/10 ML VIAL IVP SCH (08:34)
[2018-08-22] MEDS: FOLIC ACID 1 MG TAB PO SCH (08:34)
[2018-08-22] MEDS: ALPRAZolam 0.25 MG TAB PO SCH ×2 (08:34→22:57)
[2018-08-22] MEDS: VANCOMYCIN 1,500 MG in SODIUM CHLORIDE 0.9% 250 ML IVPB SCH ×2 (11:08→23:46)
[2018-08-22] MEDS: ACETAMINOPHEN TAB 325 MG TAB PO PRN ×2 (11:19→16:55)
[2018-08-22 11:52] VITALS: BMI 31.4
[2018-08-22 12:25] LABS: HCT 22.5 % (34.0-46.0); HGB 7.2 gm/dL (11.4-16.0); Hypochromasia Moderate; MCH 27.6 pg (25.0-35.0); MCHC 31.9 g/dL (31.0-37.0); MCV 86.4 fL (80.0-100.0); Mean Platelet Volume 9.2; Platelet Count 311 k/uL (150-450); Poikilocytosis Slight; RDW 15.5 % (11.5-15.5)
--- NOTE | 2018-08-22 13:10 | P.PN ---
Subjective Progress Note Date: 08/22/18 Principal diagnosis: Lung Cancer Trial patient back on Eliquis today. Monitor for 24-48 hours on PO anticoagulation and if no bleeding ok for discharge from Oncology standpoint Objective - Vital Signs Vital signs: Vital Signs Temp 100.1 F H 08/22/18 11:12 Pulse 107 H 08/22/18 11:23 Resp 18 08/22/18 11:23 BP 111/73 08/22/18 11:12 Pulse Ox 97 08/22/18 11:12 Intake & Output 08/21/18 08/22/18 08/22/18 18:59 06:59 18:59 Intake Total 360 300 Output Total 800 400 Balance -440 -100 Weight 80.3 kg 80.3 kg Intake: Oral 360 300 Output: Urine 800 400 Other: # Voids 3 - Exam - Constitutional General appearance: average body habitus, cooperative, mild distress - EENT dry mucus membranes Eyes: anicteric sclerae, EOMI ENT: hearing grossly normal - Neck Neck: no lymphadenopathy - Respiratory Respiratory: bilateral: CTA - Cardiovascular Heart sounds: normal: S1, S2 - Gastrointestinal General gastrointestinal: no absent bowel sounds, no decreased bowel sounds, distended, no hepatomegaly, no hyperactive bowel sounds, normal bowel sounds, no organomegaly, no rigid, no scaphoid, soft, no splenomegaly, tenderness, no umbilical hernia, no ventral hernia - Integumentary Integumentary: normal - Neurologic Neurologic: CNII-XII intact - Musculoskeletal Musculoskeletal: generalized weakness, strength equal bilaterally - Psychiatric Psychiatric: A&O x's 3, appropriate affect, intact judgment & insight - Labs CBC & Chem 7: 08/23/18 08:36 08/23/18 08:36 Labs: Abnormal Lab Results - Last 24 Hours (Table) 08/21/18 08/22/18 08/22/18 Range/Units 06:30 06:14 06:14 WBC 17.5 H (3.8-10.6) k/uL RBC (3.80-5.40) m/uL Hgb (11.4-16.0) gm/dL Hct (34.0-46.0) % Neutrophils # (Manual) 15.90 H (1.3-7.7) k/uL Lymphocytes # (Manual) 0.35 L (1.0-4.8) k/uL Metamyelocytes # (Man) 0.18 H (0) k/uL Myelocytes # (Manual) 0.18 H (0) k/uL Nucleated RBCs 1 H (0-0) /100 WBC APTT 47.5 H (22.0-30.0) sec Chloride 113 H (98-107) mmol/L BUN 6 L (7-17) mg/dL Creatinine 0.46 L (0.52-1.04) mg/dL Calcium 8.3 L (8.4-10.2) mg/dL 08/22/18 Range/Units 06:14 WBC 17.3 H (3.8-10.6) k/uL RBC 2.60 L (3.80-5.40) m/uL Hgb 7.2 L (11.4-16.0) gm/dL Hct 22.5 L (34.0-46.0) % Neutrophils # (Manual) (1.3-7.7) k/uL Lymphocytes # (Manual) (1.0-4.8) k/uL Metamyelocytes # (Man) (0) k/uL Myelocytes # (Manual) (0) k/uL Nucleated RBCs (0-0) /100 WBC APTT (22.0-30.0) sec Chloride (98-107) mmol/L BUN (7-17) mg/dL Creatinine (0.52-1.04) mg/dL Calcium (8.4-10.2) mg/dL Microbiology - Last 24 Hours (Table) 08/20/18 21:00 Urine Culture - Final Urine,Clean Catch 08/15/18 20:25 Blood Culture - Final Blood No Growth after 144 hours 08/20/18 19:02 Blood Culture - Preliminary Blood No Growth after 24 hours 08/19/18 16:45 Blood Culture - Preliminary Blood No Growth after 48 hours Assessment and Plan Plan: Abdominal x-ray: report reviewed CT scan - abdomen: report reviewed CT scan - pelvis: report reviewed Assessment and Plan (1) Fever - Likely Secondary Left Axillary Boil/Abscess - Infectious Disease Following - Reviewed Surgical Note, no intervention at this time - Empiric antibiotics to continue - Fever T-Max in 24 hours 101.2 (2) Metastatic lung cancer (metastasis from lung to other site) - Liver and ascites Fluid) - Recent Recurrence with diffuse Metastatic Disease - MRI Brain was ordered as outpatient for initial staging, she missed this secondary to hospitalization, will need to re-order at discharge - Awaiting Molecular tests on liver biopsy and recurrent ascites - Awaiting molecular testing at this time to start systemic therapy. If the patient does not have an appropriate target, she'll be treated with carboplatin, Alimta, and Keytruda - Radiation Oncology has been consulted to evaluate (3) Vaginal bleeding - Assistant Branch Operations Manager evaluation without significant or persistent bleeding identified - Eliquis stopped due to precipitous drop in Hgb, close monitoring for bleeding, Hgb monitoring. Transfuse for Hgb<7 or if symptomatic. - May have to consider IVC filter if bleeding represents - With recent episode of bleeding and starting anticoagulation witll give three doses of IV Parental Iron, note to call hematology if febrile. Last blood cultures negative from 4.8.19 (4) Pulmonary emboli - Diagnosed 07/29. - In the setting of metastatic disease and very recent diagnosis of PE may need to consider IVC filter. - Will await Assistant Branch Operations Manager consult and recommendations regarding the vaginal bleeding. - Heparin drip without bleeding - OSD CLERK did provide evaluation without evidence of persistent bleeding, therefore heparin drip was restarted, she has been monitored greater than 24 hours on heparin drip and has not dramatically dropped her hemoglobin and thus far her vaginal bleeding has not recurred. There is scant intermittent per patient but appears controlled not worsened this far on anticoagulation, continue to monitor CBC - Radiaiton Oncology has been consulted to assess - Will switch patient back to Eliquis today and monitor closely for bleeding. (5) Recurrent Abdominal Ascites: - Continue Therapeutic PRN Paracentesis (6) History of Early Stage Laryngeal Cancer Physician Attestation: I have complete the full history and physical and agree with above dictated as a scribe
[2018-08-22 13:21] LABS: Band Neutrophils % 1 %; Eosinophils # (M) 0.34 k/uL (0-0.7); Large Platelets Present; Lymphocytes # (M) 0.17 k/uL (1.0-4.8); Monocytes # (M) 1.37 k/uL (0-1.0); Neutrophils % (M) 89 %; Nucleated Red Blood Cells 1 /100 WBC (0-0); Polychromasia Present; Total Cells Counted 200; WBC 17.1 k/uL (3.8-10.6)
[2018-08-22] MEDS: APIXABAN 5 MG TAB PO SCH ×2 (13:31→22:53)
[2018-08-22] MEDS: SODIUM FERRIC GLUCONAT-SUCROSE 125 MG in SODIUM CHLORIDE 0.9% 100 ML IVPB SCH (13:53)
--- NOTE | 2018-08-22 19:51 | PN ---
PROGRESS NOTE DATE OF SERVICE: 08/22/2018 This 52-year-old woman who was admitted with significant abdominal pain and fever also had vaginal bleeding. Patient also has sepsis secondary to axillary abscess. The patient is on IV heparin, so not much bleeding is noted. Radiation therapy and medical oncology teams are following the patient closely. Oral Eliquis is being planned. No chest pain. No palpitations. No fever. Past medical history reviewed. REVIEW OF SYSTEMS: CARDIOVASCULAR SYSTEM: No angina, palpitations. RESPIRATORY SYSTEM: As mentioned earlier. GI: As mentioned earlier. : As mentioned earlier. NERVOUS SYSTEM: No numbness, weakness. CURRENT MEDICATIONS: Reviewed. They include: 1. Tylenol 650 q.4 p.r.n. 2. Xanax 0.25 t.i.d. 3. Eliquis 5 mg b.i.d. 4. Lipitor 80 mg. 5. Cefepime 2 grams IV q.8. 6. Folic acid 1 mg daily. 7. Reglan. 8. Lopressor 12.5 mg p.o. b.i.d. 9. Zofran 4 mg q.8 p.r.n. 10.Percocet 10 mg q.4 p.r.n. 11.Restoril 15 mg p.o. at bedtime. 12.Vancomycin mg b.i.d.. PHYSICAL EXAMINATION: Patient is alert and oriented x3. Pulse is 104, blood pressure 99/60, respiration 18, temperature 100.1, pulse ox 93% on room air. HEENT: Conjunctivae normal. Oral mucosa moist. NECK: No jugular venous distention. No carotid bruit. No lymph node enlargement. CARDIOVASCULAR SYSTEM: S1, S2 muffled. RESPIRATORY SYSTEM: Breath sounds diminished at the bases. A few scattered rhonchi and crackles. ABDOMEN: Soft, non-tender. No mass palpable. LEGS: No edema. No swelling. NERVOUS SYSTEM: No focal deficit. LABS: WBC 17.1, hemoglobin 7.2, sodium 140, potassium 3.7. ASSESSMENT: 1. Abdominal pain, fever, with left axillary swelling and possible abscess with sepsis, present on admission, status post incision and drainage. 2. Continued fever. 3. Axillary abscess, status post incision and drainage, with broad-spectrum IV antibiotics. Cultures are negative so far. 4. Genitourinary bleeding as well as acute on chronic blood loss anemia, possibly secondary to metastatic malignancy. 5. Possible lung cancer with multiple metastases to the peritoneum as well as liver. 6. Heparin monitoring. 7. Ovarian tumor, possibly secondary to right lung malignancy and metastases. 8. History of pulmonary embolus. 9. Hyponatremia. 10.Previous history of gastroesophageal reflux disease. 11.Hypertension. 12.Hyperlipidemia. 13.History of myocardial infarction. 14.History of brain aneurysm. 15.History of lung cancer. 16.History of anxiety. 17.History of panic disorder. 18.History of nicotine dependence. 19.FULL CODE. RECOMMENDATIONS AND DISCUSSION: I recommend to continue current medications, continue with the monitoring, symptomatic treatment. Otherwise at this time I recommend continuing with Eliquis. Watch for bleeding closely. I would recommend repeat cultures. Closely follow with multiple consultants. As mentioned earlier, the patient is on broad-spectrum IV antibiotics. If the patient develops any bleeding, patient might require IVC filter. Otherwise, closely monitor. Guarded prognosis because of multiple complex medical issues. Further recommendations to follow. See orders for further details. MMODL / IJN: [id number] / MTDD
[2018-08-23] MEDS: HYDROmorphone 0.5 MG/0.5 ML SYRINGE IVP PRN ×4 (04:36→22:11)
[2018-08-23] MEDS: CEFEPIME 2 GM in SODIUM CHLORIDE 0.9% 100 ML IVPB SCH ×3 (08:37→22:19)
[2018-08-23] MEDS: APIXABAN 5 MG TAB PO SCH ×2 (08:45→22:16)
[2018-08-23] MEDS: METOPROLOL TARTRATE 12.5 MG TAB PO SCH ×2 (08:45→22:16)
[2018-08-23] MEDS: ATORVASTATIN 80 MG TAB PO SCH (08:45)
[2018-08-23 09:33] LABS: Anisocytosis Slight; Basophils % (A) 0 %; Eosinophils # (A) 0.2 k/uL (0-0.7); Eosinophils % (A) 1 %; HCT 26.6 % (34.0-46.0); HGB 7.9 gm/dL (11.4-16.0); Hypochromasia Moderate; Lymphocytes # (A) 0.6 k/uL (1.0-4.8); Lymphocytes % (A) 3 %; MCH 25.9 pg (25.0-35.0); MCHC 29.7 g/dL (31.0-37.0); MCV 87.4 fL (80.0-100.0); Mean Platelet Volume 7.7; Monocytes # (A) 0.8 k/uL (0-1.0); Monocytes % (A) 4 %; Neutrophils # (A) 19.2 k/uL (1.3-7.7); Neutrophils % (A) 91 %; Platelet Count 377 k/uL (150-450); Poikilocytosis Slight; RBC 3.05 m/uL (3.80-5.40); RDW 16.1 % (11.5-15.5)
[2018-08-23 09:50] LABS: ALT 21 U/L (9-52); AST 14 U/L (14-36); Albumin 2.1 g/dL (3.5-5.0); Alkaline Phosphatase 121 U/L (38-126); Blood Urea Nitrogen 6 mg/dL (7-17); Calcium 8.9 mg/dL (8.4-10.2); Chloride 110 mmol/L (98-107); Glucose 89 mg/dL (74-99); Potassium 3.8 mmol/L (3.5-5.1); Sodium 140 mmol/L (137-145); Total Bilirubin 0.4 mg/dL (0.2-1.3); Total Protein 5.3 g/dL (6.3-8.2)
[2018-08-23] MEDS: ALPRAZolam 0.25 MG TAB PO SCH ×2 (10:11→23:40)
[2018-08-23] MEDS: PANTOPRAZOLE 40 MG/10 ML VIAL IVP SCH (10:16)
[2018-08-23] MEDS: FOLIC ACID 1 MG TAB PO SCH (10:24)
[2018-08-23] MEDS: SODIUM FERRIC GLUCONAT-SUCROSE 125 MG in SODIUM CHLORIDE 0.9% 100 ML IVPB SCH (10:44)
[2018-08-23 10:54] LABS: Anion Gap 9 mmol/L; Carbon Dioxide 21 mmol/L (22-30)
[2018-08-23] MEDS: VANCOMYCIN 1,500 MG in SODIUM CHLORIDE 0.9% 250 ML IVPB SCH ×2 (12:05→23:40)
--- NOTE | 2018-08-23 15:45 | P.PN ---
Subjective Progress Note Date: 08/23/18 Principal diagnosis: Lung Cancer No s/s of bleeding, she is very anxious today and been refusing her xanax as she is scared it will make her feel weird. Sister at bedside, I have explained to her the plan for initiation of systemic treatment, we discussed controlling anxiety and she agreed to retry her xanax. We also discussed increasing activity. Objective - Vital Signs Vital signs: Vital Signs Temp 98.3 F 08/23/18 13:21 Pulse 103 H 08/23/18 13:21 Resp 19 08/23/18 13:21 BP 119/82 08/23/18 13:21 Pulse Ox 97 08/23/18 13:21 Intake & Output 08/22/18 08/23/18 08/23/18 18:59 06:59 18:59 Intake Total 460 2390 Balance 460 2390 Weight 80.3 kg Intake: IV 110 Sodium Chloride 0.9% 1, 110 000 ml @ 20 mls/hr IV . Q24H [facility] Rx#:[id number] Intake, IV Titration 350 590 Amount Cefepime 2 gm In Sodium 100 100 Chloride 0.9% 100 ml @ 200 mls/hr IVPB Q8H [facility] Rx#:[id number] Sodium Chloride 0.9% 1, 240 000 ml @ 20 mls/hr IV . Q24H [facility] Rx#:[id number] Vancomycin 1,500 mg In 250 250 Sodium Chloride 0.9% 250 ml @ 125 mls/hr IVPB Q12H [facility] Rx#:[id number] Oral 1800 Other: Voiding Method Bedside Commode Bedside Commode # Voids 2 4 - Exam - Constitutional General appearance: average body habitus, cooperative, mild distress - EENT dry mucus membranes Eyes: anicteric sclerae, EOMI ENT: hearing grossly normal - Neck Neck: no lymphadenopathy - Respiratory Respiratory: bilateral: CTA - Cardiovascular Heart sounds: normal: S1, S2 - Gastrointestinal General gastrointestinal: no absent bowel sounds, no decreased bowel sounds, distended, no hepatomegaly, no hyperactive bowel sounds, normal bowel sounds, no organomegaly, no rigid, no scaphoid, soft, no splenomegaly, tenderness, no umbilical hernia, no ventral hernia - Integumentary Integumentary: normal - Neurologic Neurologic: CNII-XII intact - Musculoskeletal Musculoskeletal: generalized weakness, strength equal bilaterally - Psychiatric Psychiatric: A&O x's 3, appropriate affect, intact judgment & insight - Labs CBC & Chem 7: 08/23/18 08:36 08/23/18 08:36 Labs: Abnormal Lab Results - Last 24 Hours (Table) 08/23/18 08/23/18 Range/Units 08:36 08:36 WBC 21.0 H (3.8-10.6) k/uL RBC 3.05 L (3.80-5.40) m/uL Hgb 7.9 L (11.4-16.0) gm/dL Hct 26.6 L (34.0-46.0) % MCHC 29.7 L (31.0-37.0) g/dL RDW 16.1 H (11.5-15.5) % Neutrophils # 19.2 H (1.3-7.7) k/uL Lymphocytes # 0.6 L (1.0-4.8) k/uL Chloride 110 H (98-107) mmol/L Carbon Dioxide 21 L (22-30) mmol/L BUN 6 L (7-17) mg/dL Total Protein 5.3 L (6.3-8.2) g/dL Albumin 2.1 L (3.5-5.0) g/dL Microbiology - Last 24 Hours (Table) 08/22/18 23:44 Urine Culture - Preliminary Urine,Voided 08/20/18 19:02 Blood Culture - Preliminary Blood No Growth after 48 hours 08/19/18 16:45 Blood Culture - Preliminary Blood No Growth after 72 hours Assessment and Plan Plan: Abdominal x-ray: report reviewed CT scan - abdomen: report reviewed CT scan - pelvis: report reviewed Assessment and Plan (1) Fever - Likely Secondary Left Axillary Boil/Abscess - Infectious Disease Following - Reviewed Surgical Note, no intervention at this time - Empiric antibiotics to continue - Fever T-Max in 24 hours 101.2 (2) Metastatic lung cancer (metastasis from lung to other site) - Liver and ascites Fluid) - Recent Recurrence with diffuse Metastatic Disease - MRI Brain was ordered as outpatient for initial staging, she missed this secondary to hospitalization, will need to re-order at discharge - Awaiting Molecular tests on liver biopsy and recurrent ascites - Awaiting molecular testing at this time to start systemic therapy. If the patient does not have an appropriate target, she'll be treated with carboplatin, Alimta, and Keytruda - Radiation Oncology has been consulted to evaluate (3) Vaginal bleeding - Ham Facer evaluation without significant or persistent bleeding identified - Eliquis stopped due to precipitous drop in Hgb, close monitoring for bleedin g, Hgb monitoring. Transfuse for Hgb<7 or if symptomatic. - May have to consider IVC filter if bleeding represents - With recent episode of bleeding and starting anticoagulation witll give three doses of IV Parental Iron, note to call hematology if febrile. Last blood cultures negative from 4.8.19 (4) Pulmonary emboli - Diagnosed 07/29. - In the setting of metastatic disease and very recent diagnosis of PE may need to consider IVC filter. - Will await Ham Facer consult and recommendations regarding the vaginal bleeding. - Heparin drip without bleeding - WAREHOUSE HAND did provide evaluation without evidence of persistent bleeding, therefore heparin drip was restarted, she has been monitored greater than 24 hours on heparin drip and has not dramatically dropped her hemoglobin and thus far her vaginal bleeding has not recurred. There is scant intermittent per patient but appears controlled not worsened this far on anticoagulation, continue to monitor CBC - Radiaiton Oncology has been consulted to assess - Will switch patient back to Eliquis today and monitor closely for bleeding. (5) Recurrent Abdominal Ascites: - Continue Therapeutic PRN Paracentesis (6) History of Early Stage Laryngeal Cancer Plan: - Ok for discharge from oncology standpoint - Will set up to start chemotherapy next week with Carboplatin, Almta, and Keytruda, these medications were discussed with the patient and family members, risks and benefits. She will need to take folic acid daily at discharge - Discussed the re-initiation of Eliquis, risks and benefits of bleeding versus thrombus and monitoring for recurrent vaginal bleeding - She will need a Oncology EMBOSSING TOOLSETTER Chemo teach early next week and hopefully begin Chemotherapy end of next week. Physician Attestation: I have complete the full history and physical and agree w ith above dictated as a scribe
--- NOTE | 2018-08-23 17:52 | PN ---
PROGRESS NOTE DATE OF SERVICE: 08/23/2018 This 52-year-old woman was admitted with significant abdominal pain as well as fever, also had vaginal bleeding. No chest pain. No palpitations. The patient is started on IV antibiotics. Cultures are negative so far. The most recent chest x-ray reviewed by me showed some pleural effusion. No chest pain. No palpitations. No fever. EXAM: Alert and oriented x3. The pulse is 103. Blood pressure 119/82, respiration 19, temperature 98.2, pulse ox 97% on room air. CARDIOVASCULAR: S1, S2. RESPIRATORY: Breath sounds diminished in the bases. A few scattered rhonchi. No crackles. Abdomen is soft. Obese. LEGS: No edema. No swelling. CENTRAL NERVOUS SYSTEM: no focal deficits. LABORATORY DATA: WBC 21, hemoglobin 7.9, sodium 140, potassium 3.8. ASSESSMENT: 1. Abdominal pain and fever with left axillary swelling as well as possible abscess, sepsis, present on admission, status post incision and drainage. 2. Continued fever. 3. Increased WBC. 4. Axillary abscess status post incision and drainage with broad-spectrum IV antibiotics. Cultures negative so far. 5. Genitourinary bleeding as well as acute on chronic blood loss anemia, possibly secondary to metastatic malignancy. 6. Possible lung cancer with multiple METS to the peritoneum as well as liver. 7. Heparin monitoring. 8. Ovarian tumor, possibly secondary to right lung malignancy and metastasis per Pulmonary. 9. History of pulmonary embolus. 10.Hyponatremia. 11.Previous history of gastroesophageal reflux disease. 12.Hypertension. 13.Hyperlipidemia. 14.History of myocardial infarction. 15.History of brain aneurysm. 16.History of lung cancer. 17.History of anxiety. 18.History of panic disorder. 19.History of nicotine dependence. 20.FULL CODE. RECOMMENDATIONS AND DISCUSSION: I recommend to continue current medications, monitoring, management. Symptomatic treatment. Otherwise, at this time, continue with current antibiotics. Otherwise, closely with Infectious Disease. Guarded prognosis. Further recommendations to follow. MMODL / IJN: [id number] /
[2018-08-23 18:12] VITALS: RESP 18
[2018-08-24] MEDS: SODIUM CHLORIDE 0.9% 1,000 ML IV SCH (01:59)
[2018-08-24] MEDS: HYDROmorphone 0.5 MG/0.5 ML SYRINGE IVP PRN ×2 (05:45→10:20)
[2018-08-24] MEDS: CEFEPIME 2 GM in SODIUM CHLORIDE 0.9% 100 ML IVPB SCH (05:48)
[2018-08-24] MEDS: PANTOPRAZOLE 40 MG/10 ML VIAL IVP SCH (08:37)
[2018-08-24] MEDS: SODIUM FERRIC GLUCONAT-SUCROSE 125 MG in SODIUM CHLORIDE 0.9% 100 ML IVPB SCH (08:37)
[2018-08-24] MEDS: ATORVASTATIN 80 MG TAB PO SCH (09:06)
[2018-08-24] MEDS: METOPROLOL TARTRATE 12.5 MG TAB PO SCH (09:06)
[2018-08-24] MEDS: APIXABAN 5 MG TAB PO SCH (09:07)
[2018-08-24] MEDS: FOLIC ACID 1 MG TAB PO SCH (09:07)
[2018-08-24] MEDS: ALPRAZolam 0.25 MG TAB PO SCH (09:09)
[2018-08-24 09:27] LABS: Anisocytosis Slight; HCT 24.2 % (34.0-46.0); HGB 7.7 gm/dL (11.4-16.0); Hypochromasia Slight; MCH 27.4 pg (25.0-35.0); MCHC 31.9 g/dL (31.0-37.0); MCV 85.9 fL (80.0-100.0); Platelet Count 380 k/uL (150-450); Poikilocytosis Slight; RBC 2.81 m/uL (3.80-5.40); RDW 17.2 % (11.5-15.5)
[2018-08-24 09:37] LABS: Anion Gap 6 mmol/L; Blood Urea Nitrogen 7 mg/dL (7-17); Calcium 8.5 mg/dL (8.4-10.2); Carbon Dioxide 23 mmol/L (22-30); Chloride 111 mmol/L (98-107); Glucose 90 mg/dL (74-99); Potassium 3.8 mmol/L (3.5-5.1); Sodium 140 mmol/L (137-145)
[2018-08-24 10:13] LABS: Band Neutrophils % 1 %; Eosinophils # (M) 0.18 k/uL (0-0.7); Myelocytes # (M) 0.18 k/uL (0); Myelocytes % 1 %; Neutrophils % (M) 89 %; Nucleated Red Blood Cells 1 /100 WBC (0-0); Total Cells Counted 200
[2018-08-24 10:14] LABS: Lymphocytes # (M) 0.53 k/uL (1.0-4.8); Monocytes # (M) 1.06 k/uL (0-1.0); WBC 17.7 k/uL (3.8-10.6)
[2018-08-24 10:15] LABS: Polychromasia Present
[2018-08-24] MEDS: VANCOMYCIN 1,500 MG in SODIUM CHLORIDE 0.9% 250 ML IVPB SCH (10:23)
[2018-08-24 11:24] VITALS: BP 129/66; PULSE 92; TEMP 98.4
--- NOTE | 2018-08-24 14:26 | P.PN ---
Subjective Progress Note Date: 08/24/18 Principal diagnosis: Lung Cancer No s/s of bleeding, plan to have her begin treatment with Carboplatin, almta, and Keytruda in office next week. Teach is scheduled for her and will add to discharge. Objective - Vital Signs Vital signs: Vital Signs Temp 98.4 F 08/24/18 10:30 Pulse 92 08/24/18 10:30 Resp 18 08/24/18 10:30 BP 129/66 08/24/18 10:30 Pulse Ox 100 08/24/18 10:30 Intake & Output 08/23/18 08/24/18 08/24/18 18:59 06:59 18:59 Intake Total 3350 385 Output Total 400 Balance 2950 385 Weight 80.3 kg Intake: IV 285 Sodium Chloride 0.9% 1, 160 000 ml @ 20 mls/hr IV . Q24H [facility] Rx#:[id number] Vancomycin 1,500 mg In 125 Sodium Chloride 0.9% 250 ml @ 125 mls/hr IVPB Q12H [facility] Rx#:[id number] Intake, IV Titration 590 100 Amount Cefepime 2 gm In Sodium 100 100 Chloride 0.9% 100 ml @ 200 mls/hr IVPB Q8H [facility] Rx#:[id number] Sodium Chloride 0.9% 1, 240 000 ml @ 20 mls/hr IV . Q24H [facility] Rx#:[id number] Vancomycin 1,500 mg In 250 Sodium Chloride 0.9% 250 ml @ 125 mls/hr IVPB Q12H [facility] Rx#:[id number] Oral 2760 Output: Urine 400 Other: Voiding Method Bedside Commode Bedside Commode Toilet Bedside Commode # Voids 4 2 # Bowel Movements 1 - Exam - Constitutional General appearance: average body habitus, cooperative, mild distress - EENT dry mucus membranes Eyes: anicteric sclerae, EOMI ENT: hearing grossly normal - Neck Neck: no lymphadenopathy - Respiratory Respiratory: bilateral: CTA - Cardiovascular Heart sounds: normal: S1, S2 - Gastrointestinal General gastrointestinal: no absent bowel sounds, no decreased bowel sounds, distended, no hepatomegaly, no hyperactive bowel sounds, normal bowel sounds, no organomegaly, no rigid, no scaphoid, soft, no splenomegaly, tenderness, no umbilical hernia, no ventral hernia - Integumentary Integumentary: normal - Neurologic Neurologic: CNII-XII intact - Musculoskeletal Musculoskeletal: generalized weakness, strength equal bilaterally - Psychiatric Psychiatric: A&O x's 3, appropriate affect, intact judgment & insight - Labs CBC & Chem 7: 08/24/18 08:54 08/24/18 08:54 Labs: Abnormal Lab Results - Last 24 Hours (Table) 08/24/18 08/24/18 Range/Units 08:54 08:54 WBC 17.7 H (3.8-10.6) k/uL RBC 2.81 L (3.80-5.40) m/uL Hgb 7.7 L (11.4-16.0) gm/dL Hct 24.2 L (34.0-46.0) % RDW 17.2 H (11.5-15.5) % Neutrophils # (Manual) 15.90 H (1.3-7.7) k/uL Lymphocytes # (Manual) 0.53 L (1.0-4.8) k/uL Monocytes # (Manual) 1.06 H (0-1.0) k/uL Myelocytes # (Manual) 0.18 H (0) k/uL Nucleated RBCs 1 H (0-0) /100 WBC Chloride 111 H (98-107) mmol/L Creatinine 0.51 L (0.52-1.04) mg/dL Microbiology - Last 24 Hours (Table) 08/22/18 23:44 Urine Culture - Final Urine,Voided 08/22/18 19:03 Blood Culture - Preliminary Blood No Growth after 24 hours 08/20/18 19:02 Blood Culture - Preliminary Blood No Growth after 72 hours 08/19/18 16:45 Blood Culture - Preliminary Blood No Growth after 96 hours Assessment and Plan Plan: Abdominal x-ray: report reviewed CT scan - abdomen: report reviewed CT scan - pelvis: report reviewed Assessment and Plan (1) Fever - Likely Secondary Left Axillary Boil/Abscess - Infectious Disease Following - Reviewed Surgical Note, no intervention at this time - Empiric antibiotics to continue - Fever T-Max in 24 hours 101.2 (2) Metastatic lung cancer (metastasis from lung to other site) - Liver and ascites Fluid) - Recent Recurrence with diffuse Metastatic Disease - MRI Brain was ordered as outpatient for initial staging, she missed this s econdary to hospitalization, will need to re-order at discharge - Awaiting Molecular tests on liver biopsy and recurrent ascites - Awaiting molecular testing at this time to start systemic therapy. If the patient does not have an appropriate target, she'll be treated with carboplatin, Alimta, and Keytruda - Radiation Oncology has been consulted to evaluate (3) Vaginal bleeding - Billing Typist evaluation without significant or persistent bleeding identified - Eliquis stopped due to precipitous drop in Hgb, close monitoring for bleeding, Hgb monitoring. Transfuse for Hgb<7 or if symptomatic. - May have to consider IVC filter if bleeding represents - With recent episode of bleeding and starting anticoagulation witll give three doses of IV Parental Iron, note to call hematology if febrile. Last blood cultures negative from 4.8.19 (4) Pulmonary emboli - Diagnosed 07/29. - In the setting of metastatic disease and very recent diagnosis of PE may need to consider IVC filter. - Will await Billing Typist consult and recommendations regarding the vaginal bleeding. - Heparin drip without bleeding - PECAN PICKER did provide evaluation without evidence of persistent bleeding, therefore heparin drip was restarted, she has been monitored greater than 24 hours on heparin drip and has not dramatically dropped her hemoglobin and thus far her vaginal bleeding has not recurred. There is scant intermittent per patient but appears controlled not worsened this far on anticoagulation, continue to monitor CBC - Radiaiton Oncology has been consulted to assess - Will switch patient back to Eliquis today and monitor closely for bleeding. (5) Recurrent Abdominal Ascites: - Continue Therapeutic PRN Paracentesis (6) History of Early Stage Laryngeal Cancer Plan: - Ok for discharge from oncology standpoint - Will set up to start chemotherapy next week with Carboplatin, Almta, and Keytruda, these medications were discussed with the patient and family members, risks and benefits. - She will need to take folic acid daily at discharge, I did send prescription for this - Discussed the re-initiation of Eliquis, risks and benefits of bleeding versus thrombus and monitoring for recurrent vaginal bleeding - She will need a Oncology SLIMER Chemo teach early next week and hopefully begin Chemotherapy end of next week. Physician Attestation: I have complete the full history and physical and agree with above dictated as a scribe
--- NOTE | 2018-08-25 07:24 | DS ---
DISCHARGE SUMMARY DATE OF SERVICE: 08/24/2018. FINAL DIAGNOSES: 1. Abdominal pain fever with left axillary swelling and as well as possible abscess, sepsis, present on admission, status post incision and drainage. 2. Increased WBC. 3. Axillary abscess status post incision and drainage with broad-spectrum IV antibiotics currently with negative cultures. 4. Genitourinary bleeding as well as acute on chronic blood-loss anemia possibly secondary to metastatic malignancy. 5. Possible lung cancer with multiple mets of the peritoneum as well as the liver. 6. Heparin monitoring. 7. Ovarian tumor, possibly secondary to the lung malignancy and metastasis per Pulmonary. 8. History of pulmonary embolism. 9. Hyponatremia. 10.Previous history of gastroesophageal reflux disease. 11.Hypertension. 12.Hyperlipidemia. 13.History of myocardial infarction. 14.History of brain aneurysm. 15.History of lung cancer. 16.History of anxiety. 17.History of panic disorder. 18.Nicotine dependence. 19.FULL CODE. DISCHARGE DISPOSITION: The patient being discharged in stable condition with guarded prognosis. Total time taken 35 minutes. HISTORY OF PRESENT ILLNESS: This 52-year-old woman with a past medical history of multiple medical problems was admitted with abdominal pain, fever, nausea and bleeding. Patient had left axillary abscess which was treated with incision, drain, broad-spectrum IV antibiotics. Bleeding persisted. Patient also had anemia. Patient was transfused. Patient improved significantly. The patient was seen by multiple consultants during the hospitalization including pulmonary, Hematology, Oncology and Dr. Fatima saw the patient and recommended outpatient followup at this time. Other than that, the patient was also restarted on IV heparin and Eliquis without any bleeding at this time. So the patient was discharged in stable condition with guarded prognosis. On exam, vitals are stable. Cardiovascular: S1, S2. Abdomen is soft. Nontender. Nervous system: No focal deficits. DISCHARGE ADVICE AND MEDICATIONS: 1. Discharge diet is cardiac diet. 2. Activity limited until followup. 3. Follow up with Dr. Latisha Ziegler in 2-3 days. 4. Follow up with oncology as mentioned earlier. MEDICATIONS: 1. Lipitor 80 mg p.o. daily. 2. Oxycodone 10 mg q.4 p.r.n. 3. Ceftin 500 mg b.i.d. for 3 more days. 4. Eliquis 5 mg p.o. b.i.d. 5. Folic acid 1 mg p.o. daily. 6. Lopressor 12.5 mg b.i.d. 7. Protonix 40 mg daily. 8. Tylenol p.r.n. 9. Zofran 4 mg p.r.n. Once again, the patient is being discharged in stable condition with guarded prognosis. MMPRACHIL / ISISN: [id number] /
[2018-08-25] MEDS ORDERED: VANCOMYCIN TROUGH DUE 1 EACH MISC MISCELLANE ONE (10:00)
== END 2018-08-24 14:55 | disposition home health service (06) | DRG 872 ==
LOC: EC 18:38 → 3SCARD 21:25 → 2SICU 08-16 00:05 → 3SCARD 08-19 17:29 → 3NMEDONC 08-22 22:33
PROVIDERS: ADMIT Hospitalist; ATTEND Hospitalist
PROC: 0X950ZX Drainage of Left Axilla, Open Approach, Diagnostic (ICD-10-PCS; principal; 2018-08-17 15:00)
PROC: 05HB33Z Insertion of Infusion Device into Right Basilic Vein, Percutaneous Approach (ICD-10-PCS; 2018-08-17 15:00)
DX: A41.9 Sepsis, unspecified organism (principal); C34.31 Malignant neoplasm of lower lobe, right bronchus or lung; C78.7 Secondary malignant neoplasm of liver and intrahepatic bile duct; C78.6 Secondary malignant neoplasm of retroperitoneum and peritoneum; C79.60 Secondary malignant neoplasm of unspecified ovary; D62 Acute posthemorrhagic anemia; E87.1 Hypo-osmolality and hyponatremia; L02.412 Cutaneous abscess of left axilla; R18.0 Malignant ascites; C32.0 Malignant neoplasm of glottis; F17.210 Nicotine dependence, cigarettes, uncomplicated; E78.5 Hyperlipidemia, unspecified; F41.0 Panic disorder [episodic paroxysmal anxiety]; I10 Essential (primary) hypertension; I25.2 Old myocardial infarction; Z86.711 Personal history of pulmonary embolism; Z79.01 Long term (current) use of anticoagulants; Z86.79 Personal history of other diseases of the circulatory system; J43.9 Emphysema, unspecified; K21.9 Gastro-esophageal reflux disease without esophagitis; L02.422 Furuncle of left axilla; N93.9 Abnormal uterine and vaginal bleeding, unspecified; R13.10 Dysphagia, unspecified; Z79.899 Other long term (current) drug therapy; Z80.9 Family history of malignant neoplasm, unspecified; Z85.21 Personal history of malignant neoplasm of larynx; Z85.42 Personal history of malignant neoplasm of other parts of uterus; Z92.3 Personal history of irradiation; Z90.2 Acquired absence of lung [part of]; I25.10 Atherosclerotic heart disease of native coronary artery without angina pectoris; Z95.5 Presence of coronary angioplasty implant and graft
CPT/HCPCS: 36410; 36415; 71045; 74177; 76705; 76830; 76937; 80048; 80053; 80202; 81001; 81025; 81503; 82140; 82272; 82607; 82728; 82746; 83540; 83550; 83605; 83615; 83690; 83735; 84484; 85025; 85027; 85045; 85610; 85730; 86850; 86900; 86901; 86920; 87040; 87070; 87086; 87205; 87502; 93005; 93306; 94760; 96365; 96366; 96367; 99291

== ENCOUNTER 2018-08-28 14:56 | Inpatient (IN) | payer OTHER ==
[2018-08-28] MEDS ORDERED: SODIUM CHLORIDE 0.9% 500 ML 500 ML IV STA (15:15)
[2018-08-28] MEDS ORDERED: ACETAMINOPHEN TAB 325 MG TAB PO STA (15:31)
[2018-08-28 15:46] LABS: Anisocytosis Slight; Basophils % (A) 0 %; Eosinophils # (A) 0.2 k/uL (0-0.7); Eosinophils % (A) 1 %; HCT 26.9 % (34.0-46.0); HGB 8.5 gm/dL (11.4-16.0); Hypochromasia Moderate; Lymphocytes # (A) 0.7 k/uL (1.0-4.8); Lymphocytes % (A) 4 %; MCH 26.7 pg (25.0-35.0); MCHC 31.7 g/dL (31.0-37.0); MCV 84.3 fL (80.0-100.0); Mean Platelet Volume 7.7; Monocytes # (A) 0.6 k/uL (0-1.0); Monocytes % (A) 3 %; Neutrophils # (A) 17.5 k/uL (1.3-7.7); Neutrophils % (A) 90 %; Platelet Count 470 k/uL (150-450); Poikilocytosis Moderate; RDW 19.4 % (11.5-15.5); WBC 19.4 k/uL (3.8-10.6)
--- NOTE | 2018-08-28 15:52 | XR ---
EXAMINATION TYPE: XR chest 2V DATE OF EXAM: 08/28/2018 COMPARISON: 08/20/2018 INDICATION: Weakness history of lung cancer TECHNIQUE: Frontal and lateral views of the chest are obtained. FINDINGS: The heart size is normal. The pulmonary vasculature is normal. The lungs are clear. Some mild infiltrate along the left base may be present. There is elevation of the lateral right diaphragm. IMPRESSION: 1. Mild left basilar infiltrate. Correlate for atelectasis.
[2018-08-28] MEDS ORDERED: SODIUM CHLORIDE 0.9% 500 ML 500 ML IV ONE (15:57)
--- NOTE | 2018-08-28 16:02 | ED ---
General Adult HPI - General Chief complaint: Weakness Stated complaint: Weakness Time Seen by Provider: 08/28/18 14:58 Source: patient, EMS, RN notes reviewed Mode of arrival: EMS Limitations: no limitations - History of Present Illness Initial comments: 52-year-old female presenting for evaluation of generalized weakness, dehydration. Patient is currently cancer patient awaiting possible chemotherapy. She's had progressive weakness and inability to tolerate significant oral hydration for the past several weeks. She previously underwent radiation for laryngeal carcinoma. She has been diagnosed with progressive cancer since that time. Denies chest pain. Denies abdominal pain nausea vomiting. Denies dysuria. Denies fever or chills. - Related Data Home Medications Medication Instructions Recorded Confirmed Atorvastatin [Lipitor] 80 mg PO DAILY 10/21/13 08/15/18 oxyCODONE-APAP 10-325MG [Percocet 1 tab PO Q4HR PRN 07/29/18 08/15/18 10-325 mg] Previous Rx's Medication Instructions Recorded Ondansetron Odt [Zofran ODT] 4 mg PO Q8HR PRN #10 tab 07/21/18 Apixaban [Eliquis Starter Pack 5 mg PO BID #60 tab.ds.pk 08/02/18 (for VTE)] Acetaminophen Tab [Tylenol Tab] 500 mg PO Q6H PRN #30 tablet 08/24/18 Acetaminophen Tab [Tylenol] 650 mg PO Q4HR PRN tab 08/24/18 Cefuroxime Axetil [Ceftin] 500 mg PO BID 3 Days #14 tab 08/24/18 Folic Acid 1 mg PO DAILY #30 tab 08/24/18 Metoprolol Tartrate [Lopressor] 12.5 mg PO BID #60 tab 08/24/18 Pantoprazole Sodium [Protonix] 40 mg PO DAILY #30 tablet. 08/24/18 Allergies Allergy/AdvReac Type Severity Reaction Status Date / Time Penicillins Allergy Unknown Verified 08/15/18 19:44 Childhood Review of Systems ROS Statement: Those systems with pertinent positive or pertinent negative responses have been documented in the HPI. ROS Other: All systems not noted in ROS Statement are negative. Past Medical History Past Medical History: Cancer, GERD/Reflux, Hyperlipidemia, Hypertension, Myocardial Infarction ([place]) Additional Past Medical History / Comment(s): BRAIN ANEURSYM, LUNG CA, CARPAL TUNNEL RIGHT WRIST, throat CA dx apr 2018 Last Myocardial Infarction Date:: 04/30/2013 History of Any Multi-Drug Resistant Organisms: None Reported Past Surgical History: Heart Catheterization, Orthopedic Surgery, Tubal Ligation, Uterine Ablation Additional Past Surgical History / Comment(s): ANGIOPLASTY FOR BRAIN ANEURSYM, CARPEL TUNNEL RIGHT WRIST , and laparoscopy, PARTIAL RIGHT LUNG REMOVAL ,PTCA, Past Anesthesia/Blood Transfusion Reactions: No Reported Reaction Past Psychological History: Anxiety, Panic Disorder Smoking Status: Former smoker Past Alcohol Use History: None Reported Past Drug Use History: None Reported - Past Family History Mother Family Medical History: Cancer Father Family Medical History: Cancer General Exam Limitations: no limitations General appearance: alert Head exam: Present: atraumatic, normocephalic Eye exam: Present: normal appearance, PERRL ENT exam: Present: mucous membranes dry Neck exam: Present: normal inspection. Absent: tenderness, meningismus Respiratory exam: Present: normal lung sounds bilaterally. Absent: respiratory distress, wheezes Cardiovascular Exam: Present: regular rate, normal rhythm GI/Abdominal exam: Present: soft. Absent: distended, tenderness Extremities exam: Present: normal inspection, normal capillary refill. Absent: pedal edema Neurological exam: Present: alert, oriented X3, CN II-XII intact. Absent: motor sensory deficit Psychiatric exam: Present: normal affect, normal mood Skin exam: Present: warm, dry, intact. Absent: cyanosis, diaphoretic Course Vital Signs 08/28/18 08/28/18 08/28/18 15:03 15:41 16:16 Temperature 99.9 F H 99 F Pulse Rate 99 111 H 95 Respiratory 16 16 18 Rate Blood Pressure 117/101 122/83 128/77 O2 Sat by Pulse 98 100 99 Oximetry EKG Findings - EKG Comments: EKG Findings:: EKG: Normal sinus rhythm, rate of 96, PA interval 124, QRS du ration 82, QTC 444 no ischemic changes, No ST segment elevation. Medical Decision Making - Medical Decision Making 52-year-old female presenting with generalized weakness, dehydration, poor appetite. Patient currently undergoing complaint chemotherapy. Workup in the emergency department reveals chest x-ray which is concerning for possible in filtrate. Elevated white blood cell count 19.4, hemoglobin is stable at 8.5 from previous 7.7. Normal lactic acid. Normal CMP, hyperalbuminemia 2.5. Patient is given IV hydration, initiated on cefepime and vancomycin. Will be admitted for further evaluation treatment. Oncology placed on consult. Case discussed with Dr. Zuleta will admit. - Lab Data Result diagrams: 08/28/18 15:30 08/28/18 15:30 Lab Results 08/28/18 08/28/18 08/28/18 Range/Units 15:30 15:30 16:00 WBC 19.4 H (3.8-10.6) k/uL RBC 3.20 L (3.80-5.40) m/uL Hgb 8.5 L (11.4-16.0) gm/dL Hct 26.9 L (34.0-46.0) % MCV 84.3 (80.0-100.0) fL MCH 26.7 (25.0-35.0) pg MCHC 31.7 (31.0-37.0) g/dL RDW 19.4 H (11.5-15.5) % Plt Count 470 H (150-450) k/uL Neutrophils % 90 % Lymphocytes % 4 % Monocytes % 3 % Eosinophils % 1 % Basophils % 0 % Neutrophils # 17.5 H (1.3-7.7) k/uL Lymphocytes # 0.7 L (1.0-4.8) k/uL Monocytes # 0.6 (0-1.0) k/uL Eosinophils # 0.2 (0-0.7) k/uL Basophils # 0.0 (0-0.2) k/uL Hypochromasia Moderate Poikilocytosis Moderate Anisocytosis Slight PT 12.8 H (9.0-12.0) sec INR 1.2 H (<1.2) APTT 28.3 (22.0-30.0) sec Sodium 137 (137-145) mmol/L Potassium 4.3 (3.5-5.1) mmol/L Chloride 110 H (98-107) mmol/L Carbon Dioxide 20 L (22-30) mmol/L Anion Gap 7 mmol/L BUN 5 L (7-17) mg/dL Creatinine 0.39 L (0.52-1.04) mg/dL Est GFR (CKD-EPI)AfAm >90 (>60 ml/min/1.73 sqM) Est GFR (CKD-EPI)NonAf >90 (>60 ml/min/1.73 sqM) Glucose 90 (74-99) mg/dL Plasma Lactic Acid Chase (0.7-2.0) mmol/L Calcium 8.6 (8.4-10.2) mg/dL Magnesium 1.9 (1.6-2.3) mg/dL Total Bilirubin 0.6 (0.2-1.3) mg/dL AST 15 (14-36) U/L ALT 25 (9-52) U/L Alkaline Phosphatase 115 (38-126) U/L Total Protein 6.0 L (6.3-8.2) g/dL Albumin 2.5 L (3.5-5.0) g/dL 08/28/18 Range/Units 16:00 WBC (3.8-10.6) k/uL RBC (3.80-5.40) m/uL Hgb (11.4-16.0) gm/dL Hct (34.0-46.0) % MCV (80.0-100.0) fL MCH (25.0-35.0) pg MCHC (31.0-37.0) g/dL RDW (11.5-15.5) % Plt Count (150-450) k/uL Neutrophils % % Lymphocytes % % Monocytes % % Eosinophils % % Basophils % % Neutrophils # (1.3-7.7) k/uL Lymphocytes # (1.0-4.8) k/uL Monocytes # (0-1.0) k/uL Eosinophils # (0-0.7) k/uL Basophils # (0-0.2) k/uL Hypochromasia Poikilocytosis Anisocytosis PT (9.0-12.0) sec INR (<1.2) APTT (22.0-30.0) sec Sodium (137-145) mmol/L Potassium (3.5-5.1) mmol/L Chloride (98-107) mmol/L Carbon Dioxide (22-30) mmol/L Anion Gap mmol/L BUN (7-17) mg/dL Creatinine (0.52-1.04) mg/dL Est GFR (CKD-EPI)AfAm (>60 ml/min/1.73 sqM) Est GFR (CKD-EPI)NonAf (>60 ml/min/1.73 sqM) Glucose (74-99) mg/dL Plasma Lactic Acid Chase 0.7 (0.7-2.0) mmol/L Calcium (8.4-10.2) mg/dL Magnesium (1.6-2.3) mg/dL Total Bilirubin (0.2-1.3) mg/dL AST (14-36) U/L ALT (9-52) U/L Alkaline Phosphatase (38-126) U/L Total Protein (6.3-8.2) g/dL Albumin (3.5-5.0) g/dL Disposition Clinical Impression: Metastatic lung cancer (metastasis from lung to other site), Dehydration, Gener alized weakness, HCAP (healthcare-associated pneumonia) Disposition: ADMITTED IP TO THIS [facility] Condition: Stable Is patient prescribed a controlled substance at d/c from ED?: No Referrals: Latisha Ziegler MD [Primary Care Provider] - 1-2 days Decision to Admit Reason: Admit from EC Decision Date: 08/28/18 Decision Time: 16:55
[2018-08-28] MEDS: SODIUM CHLORIDE 0.9% 1,000 ML IV SCH (16:11)
[2018-08-28 16:17] LABS: ALT 25 U/L (9-52); AST 15 U/L (14-36); Albumin 2.5 g/dL (3.5-5.0); Alkaline Phosphatase 115 U/L (38-126); Anion Gap 7 mmol/L; Blood Urea Nitrogen 5 mg/dL (7-17); Calcium 8.6 mg/dL (8.4-10.2); Carbon Dioxide 20 mmol/L (22-30); Chloride 110 mmol/L (98-107); Glucose 90 mg/dL (74-99); Magnesium 1.9 mg/dL (1.6-2.3); Potassium 4.3 mmol/L (3.5-5.1); Sodium 137 mmol/L (137-145); Total Bilirubin 0.6 mg/dL (0.2-1.3)
[2018-08-28 16:41] LABS: INR 1.2 (<1.2); Partial Thromboplastin Time 28.3 sec (22.0-30.0); Prothrombin Time 12.8 sec (9.0-12.0)
[2018-08-28] MEDS ORDERED: VANCOMYCIN IV PER PHARMACY 1 EACH MISC MISCELLANE PRN (16:42)
[2018-08-28] MEDS ORDERED: CEFEPIME 2 GM in SODIUM CHLORIDE 0.9% 100 ML IVPB STA (16:44)
[2018-08-28] MEDS ORDERED: NALOXONE 0.4 MG/ML 1 ML VIAL IV PRN (16:51)
[2018-08-28] MEDS ORDERED: ONDANSETRON 4 MG/2 ML VIAL IVP PRN (16:51)
[2018-08-28] MEDS ORDERED: VANCOMYCIN 1,250 MG in SODIUM CHLORIDE 0.9% 250 ML IVPB ONE (17:00)
[2018-08-28 17:41] LABS: Appearance,Urine Cloudy (Clear); Bacteria,Urine Rare /hpf; Bilirubin,Urine Negative (Negative); Blood,Urine Small (Negative); Color,Urine Yellow; Glucose,Urine (UA) Negative (Negative); Ketones,Urine Negative (Negative); Leukocyte Esterase,Urine Negative (Negative); Mucus,Urine Rare /hpf; Nitrite,Urine Negative (Negative); PH, Urine 7.5 (5.0-8.0); Protein,Urine 1+ (Negative); RBC,Urine 1 /hpf (0-5); Specific Gravity,Urine 1.018 (1.001-1.035); Squamous Epithelial Cell,Urine 10 /hpf (0-4); Urobilinogen,Urine <2.0 mg/dL (<2.0); WBC,Urine 4 /hpf (0-5)
[2018-08-28] MEDS ORDERED: oxyCODONE-APAP 10-325MG 1 EACH TAB PO PRN (20:21)
[2018-08-28] MEDS ORDERED: TEMAZEPAM 15 MG CAP PO PRN (20:26)
[2018-08-28] MEDS: HYDROmorphone 0.5 MG/0.5 ML SYRINGE IVP PRN (20:56)
[2018-08-28] MEDS: ATORVASTATIN 80 MG TAB PO SCH (20:56)
[2018-08-28] MEDS: METOPROLOL TARTRATE 12.5 MG TAB PO SCH (20:56)
[2018-08-28] MEDS: VANCOMYCIN 1,250 MG in SODIUM CHLORIDE 0.9% 250 ML IVPB SCH (23:12)
[2018-08-29] MEDS: ACETAMINOPHEN TAB 325 MG TAB PO PRN ×2 (01:21→11:11)
[2018-08-29] MEDS: CEFEPIME 2 GM in SODIUM CHLORIDE 0.9% 100 ML IVPB SCH ×3 (01:22→17:52)
[2018-08-29] MEDS: HYDROmorphone 0.5 MG/0.5 ML SYRINGE IVP PRN ×4 (01:34→22:42)
[2018-08-29] MEDS: SODIUM CHLORIDE 0.9% 1,000 ML IV SCH ×2 (04:50→23:09)
[2018-08-29] MEDS: CLOTRIMAZOLE TROCHE 10 MG TROCHE MUCOUS MEM SCH ×5 (04:51→23:58)
[2018-08-29] MEDS: VANCOMYCIN 1,250 MG in SODIUM CHLORIDE 0.9% 250 ML IVPB SCH ×2 (08:04→17:52)
[2018-08-29] MEDS: PANTOPRAZOLE 40 MG TABLET PO SCH (08:04)
[2018-08-29] MEDS: amLODIPine 10 MG TAB PO SCH ×2 (08:17→10:48)
[2018-08-29] MEDS: LOSARTAN 50 MG TAB PO SCH ×2 (08:18→10:50)
[2018-08-29] MEDS: ASPIRIN 81 MG PO SCH ×2 (08:19→10:49)
[2018-08-29] MEDS: CLOPIDOGREL 75 MG TAB PO SCH ×2 (08:19→10:49)
[2018-08-29] MEDS: METOPROLOL TARTRATE 12.5 MG TAB PO SCH ×2 (08:19→22:46)
--- NOTE | 2018-08-29 10:45 | P.HPIM ---
History of Present Illness This very pleasant 52-year-old -Maur[place] female who comes in to the ER for weakness and inability to eat anything. Patient says that she has history of lung cancer and she had radiation and into her neck in May 2018. Patient said the status post radiation she had some sore throat but she is doing better now. She was able to eat and drink everything until recently in July when she had flulike symptoms. Since that time the patient says that she is not able to eat or drink anything as the food smells bad and metallic and she is has nausea. She has no problems with swallowing and chewing but he says that the food smells metallic. Secondary to that she's not been eating or drinking anything. She can only tolerate pudding and boost but nothing else. She does came into the ER for further evaluation and management. Patient denies any fever or chills, denied any chest pain or racing heart, no cough no shortness of breath, she denies any abdominal pain but says that she has chronic abdominal pain now and then. No nausea and vomiting., She is constipated as she has not eating anything but she is passing gases. Patient was recently admitted and discharged on 08/24/2018 after she had I&D of the axillary abscess. Patient says that she was supposed to follow with oncology and she was supposed to be started on chemotherapy for cancer. ER course : Patient's vitals in the ER showed temperature 99.9 pulse rate 99 respirations 16 blood pressure 122/83. Labwork was initial WBC 19.4 hemoglobin 8.5 platelets 470 BUN 5 creatinine 0.39 GFR more than 90. Sodium 137 potassium 4.3 chest x-ray was done which showed possible infiltrate. Patient was thus started on IV antibiotics. Oncology was consulted and patient was admitted to the hospitalist service for further evaluation and management Review of Systems All systems: negative Past Medical History Past Medical History: Cancer, GERD/Reflux, Hyperlipidemia, Hypertension, Myocardial Infarction ([place]) Additional Past Medical History / Comment(s): BRAIN ANEURSYM, [place] 2012, LUNG CA diagnosed 2014, CARPAL TUNNEL RIGHT WRIST, throat CA dx apr 2018 Last Myocardial Infarction Date:: 04/30/2013 History of Any Multi-Drug Resistant Organisms: None Reported Past Surgical History: Heart Catheterization, Orthopedic Surgery, Tubal Ligation, Uterine Ablation Additional Past Surgical History / Comment(s): ANGIOPLASTY FOR BRAIN ANEURSYM, CARPEL TUNNEL RIGHT WRIST , and laparoscopy, PARTIAL RIGHT LUNG REMOVAL ,PTCA, Past Anesthesia/Blood Transfusion Reactions: No Reported Reaction Past Psychological History: Anxiety, Panic Disorder Smoking Status: Former smoker Past Alcohol Use History: None Reported Additional Past Alcohol Use History / Comment(s): Patient was a smoker and quit in April 2018. She denies any marijuana, illicit drug use or alcohol use. Her daughter is living with her. She is on disability. Past Drug Use History: None Reported - Past Family History Mother Family Medical History: Cancer Father Family Medical History: Cancer Medications and Allergies Home Medications Medication Instructions Recorded Confirmed Type Atorvastatin [Lipitor] 80 mg PO DAILY 10/21/13 08/28/18 History oxyCODONE-APAP 10-325MG [Percocet 1 tab PO Q4HR PRN 07/29/18 08/28/18 History 10-325 mg] Acetaminophen Tab [Tylenol Tab] 500 mg PO Q6H PRN #30 tablet 08/24/18 08/28/18 Rx Cefuroxime Axetil [Ceftin] 500 mg PO BID 3 Days #14 tab 08/24/18 08/28/18 Rx Folic Acid 1 mg PO DAILY #30 tab 08/24/18 08/28/18 Rx Metoprolol Tartrate [Lopressor] 12.5 mg PO BID #60 tab 08/24/18 08/28/18 Rx Pantoprazole Sodium [Protonix] 40 mg PO DAILY #30 tablet. 08/24/18 08/28/18 Rx Aspirin [[place] Aspirin EC] 81 mg PO DAILY 08/28/18 08/28/18 History Clopidogrel Bisulfate [Plavix] 75 mg PO DAILY 08/28/18 08/28/18 History Losartan Potassium 100 mg PO DAILY 08/28/18 08/28/18 History amLODIPine [Norvasc] 10 mg PO DAILY 08/28/18 08/28/18 History Allergies Allergy/AdvReac Type Severity Reaction Status Date / Time Penicillins Allergy Unknown Verified 08/28/18 17:00 Childhood Physical Exam Vitals: Vital Signs Temp Pulse Pulse Resp BP BP Pulse Ox 08/29/18 08:00 96 08/29/18 04:45 98.4 F 96 20 107/70 99 08/29/18 00:45 115 H 22 08/28/18 21:30 98.8 F 115 H 22 111/77 94 L 08/28/18 18:24 95 18 119/77 95 08/28/18 17:24 98 F 92 16 105/70 95 08/28/18 16:16 99 F 95 18 128/77 99 08/28/18 15:41 111 H 16 122/83 100 08/28/18 15:03 99.9 F H 99 16 117/101 98 Intake and Output 08/28/18 08/29/18 08/29/18 22:59 06:59 14:59 Intake Total 625 Balance 625 Intake: Intake, IV Titration 625 Amount Cefepime 2 gm In Sodium 200 Chloride 0.9% 100 ml @ 200 mls/hr IVPB Q8H [facility] Rx#:[id number] Sodium Chloride 0.9% 1, 300 000 ml @ 75 mls/hr IV . [id number] [facility] Rx#:[id number] Vancomycin 1,250 mg In 125 Sodium Chloride 0.9% 250 ml @ 125 mls/hr IVPB Q8HR [facility] Rx#:[id number] Other: Voiding Method Bedside Commode # Voids 2 1 Weight 73.936 kg On exam, alert and oriented x3. HEENT: Conjunctivae normal. eyes normal. NECK: He has depigmentation and the neck area secondary to radiation. CARDIOVASCULAR: S1-S2 positive RESPIRATION: Breath sounds diminished in the bases. No rhonchi or crackles. No bronchial breathing. ABDOMEN: Soft, nontender . No guarding. no masses palpable. No ascites, No hepatosplenomegaly.Bowel sounds heard. LEGS: No edema. no swelling NERVOUS SYSTEM: Cranial N 2-12 grossly normal. Moves all 4 limbs. No focal deficits. No sensory deficit. No signs of cerebellar dysfucntion. Skin: no ulcer no rash Lymphatic system. No LN neck axilla or groin. Results CBC & Chem 7: 08/28/18 15:30 08/28/18 15:30 Labs: Abnormal Lab Results - Last 24 Hours (Table) 08/28/18 08/28/18 08/28/18 Range/Units 15:30 15:30 16:00 WBC 19.4 H (3.8-10.6) k/uL RBC 3.20 L (3.80-5.40) m/uL Hgb 8.5 L (11.4-16.0) gm/dL Hct 26.9 L (34.0-46.0) % RDW 19.4 H (11.5-15.5) % Plt Count 470 H (150-450) k/uL Neutrophils # 17.5 H (1.3-7.7) k/uL Lymphocytes # 0.7 L (1.0-4.8) k/uL PT 12.8 H (9.0-12.0) sec INR 1.2 H (<1.2) Chloride 110 H (98-107) mmol/L Carbon Dioxide 20 L (22-30) mmol/L BUN 5 L (7-17) mg/dL Creatinine 0.39 L (0.52-1.04) mg/dL Total Protein 6.0 L (6.3-8.2) g/dL Albumin 2.5 L (3.5-5.0) g/dL Urine Appearance (Clear) Urine Protein (Negative) Urine Blood (Negative) Ur Squamous Epith Cells (0-4) /hpf Urine Bacteria (None) /hpf Urine Mucus (None) /hpf 08/28/18 Range/Units 17:26 WBC (3.8-10.6) k/uL RBC (3.80-5.40) m/uL Hgb (11.4-16.0) gm/dL Hct (34.0-46.0) % RDW (11.5-15.5) % Plt Count (150-450) k/uL Neutrophils # (1.3-7.7) k/uL Lymphocytes # (1.0-4.8) k/uL PT (9.0-12.0) sec INR (<1.2) Chloride (98-107) mmol/L Carbon Dioxide (22-30) mmol/L BUN (7-17) mg/dL Creatinine (0.52-1.04) mg/dL Total Protein (6.3-8.2) g/dL Albumin (3.5-5.0) g/dL Urine Appearance Cloudy H (Clear) Urine Protein 1+ H (Negative) Urine Blood Small H (Negative) Ur Squamous Epith Cells 10 H (0-4) /hpf Urine Bacteria Rare H (None) /hpf Urine Mucus Rare H (None) /hpf Microbiology - Last 24 Hours (Table) 08/28/18 17:26 Urine Culture - Preliminary Urine,Clean Catch Thrombosis Risk Factor Assmnt - Choose All That Apply Any of the Below Risk Factors Present?: Yes Each Factor Represents 1 point: Age 41-60 years, Obesity (BMI >25) Other Risk Factors: Yes Each Risk Factor Represents 2 Points: Malignancy Other congenital or acquired thrombophilia - If yes, enter type in comment: No Thrombosis Risk Factor Assessment Total Risk Factor Score: 4 Thrombosis Risk Factor Assessment Level: Moderate Risk Assessment and Plan Assessment: - Healthcare Services and pneumonia in the left lower lobe - 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 We'll also add doxycycline for extended coverage. Cultures are ordered we will follow the results and will taper the antibiotics accordingly - Patient is admitted to [facility] with telemetry - We will put her on Megace to see if it helps with a metallic taste and loss of appetite - Oncology has been consulted - We'll continue IV fluids - DVT and GI prophylaxis - Patient apparently was ON ELIQUIS appointment until a few days ago when she was having vaginal bleeding. Eliquis was on hold. We'll discuss with oncology to see when this needs to be started. - We'll order for lab work in the morning - Expected length of stay more than 2 midnights - Patient is full code Time with Patient: Greater than 30
[2018-08-29] MEDS: FOLIC ACID 1 MG TAB PO SCH (11:12)
[2018-08-29 11:52] VITALS: BMI 28.8
[2018-08-29] MEDS: DOXYCYCLINE 100 MG in SODIUM CHLORIDE 0.9% 100 ML IVPB SCH ×2 (13:19→22:46)
--- NOTE | 2018-08-29 15:22 | P.CONS ---
History of Present Illness - Reason for Consult Consult date: 08/29/18 Metastatic Cancer Requesting physician: Huey Ramos - Chief Complaint Inability to eat or drink - History of Present Illness Ms. Krishna presented to emergency at the direction of oncology secondary to inability to eat, drink, ambulate. She complained of vision changes and seeing "blurry black spots". She was recently discharged and was presenting to office on 08/28/18 for hospital follow-up visit and treatment plan schedule and education. She was unable to get back into her daughters car from office and EMS transport needed to be called to the cancer center to transport her to the Emergency Department. Review of Systems A 14 point review of systems assessed and completed and all negative except HPI Past Medical History Past Medical History: Cancer, GERD/Reflux, Hyperlipidemia, Hypertension, Myocardial Infarction ([place]) Additional Past Medical History / Comment(s): BRAIN ANEURSYM, [place] 2012, LUNG CA diagnosed 2014, CARPAL TUNNEL RIGHT WRIST, throat CA dx apr 2018 Last Myocardial Infarction Date:: 04/30/2013 History of Any Multi-Drug Resistant Organisms: None Reported Past Surgical History: Heart Catheterization, Orthopedic Surgery, Tubal Ligation, Uterine Ablation Additional Past Surgical History / Comment(s): ANGIOPLASTY FOR BRAIN ANEURSYM, CARPEL TUNNEL RIGHT WRIST , and laparoscopy, PARTIAL RIGHT LUNG REMOVAL ,PTCA, Past Anesthesia/Blood Transfusion Reactions: No Reported Reaction Past Psychological History: Anxiety, Panic Disorder Smoking Status: Former smoker Past Alcohol Use History: None Reported Additional Past Alcohol Use History / Comment(s): Patient was a smoker and quit in April 2018. She denies any marijuana, illicit drug use or alcohol use. Her daughter is living with her. She is on disability. Past Drug Use History: None Reported - Past Family History Mother Family Medical History: Cancer Father Family Medical History: Cancer Medications and Allergies Home Medications Medication Instructions Recorded Confirmed Type Atorvastatin [Lipitor] 80 mg PO DAILY 10/21/13 08/28/18 History oxyCODONE-APAP 10-325MG [Percocet 1 tab PO Q4HR PRN 07/29/18 08/28/18 History 10-325 mg] Acetaminophen Tab [Tylenol Tab] 500 mg PO Q6H PRN #30 tablet 08/24/18 08/28/18 Rx Cefuroxime Axetil [Ceftin] 500 mg PO BID 3 Days #14 tab 08/24/18 08/28/18 Rx Folic Acid 1 mg PO DAILY #30 tab 08/24/18 08/28/18 Rx Metoprolol Tartrate [Lopressor] 12.5 mg PO BID #60 tab 08/24/18 08/28/18 Rx Pantoprazole Sodium [Protonix] 40 mg PO DAILY #30 tablet. 08/24/18 08/28/18 Rx Aspirin [[place] Aspirin EC] 81 mg PO DAILY 08/28/18 08/28/18 History Clopidogrel Bisulfate [Plavix] 75 mg PO DAILY 08/28/18 08/28/18 History Losartan Potassium 100 mg PO DAILY 08/28/18 08/28/18 History amLODIPine [Norvasc] 10 mg PO DAILY 08/28/18 08/28/18 History Allergies Allergy/AdvReac Type Severity Reaction Status Date / Time Penicillins Allergy Unknown Verified 08/28/18 17:00 Childhood Physical Exam Vitals: Vital Signs Temp Pulse Pulse Resp BP BP Pulse Ox 08/29/18 11:39 98.6 F 91 18 118/79 100 08/29/18 08:00 96 08/29/18 04:45 98.4 F 96 20 107/70 99 08/29/18 00:45 115 H 22 08/28/18 21:30 98.8 F 115 H 22 111/77 94 L 08/28/18 18:24 95 18 119/77 95 08/28/18 17:24 98 F 92 16 105/70 95 08/28/18 16:16 99 F 95 18 128/77 99 08/28/18 15:41 111 H 16 122/83 100 08/28/18 15:03 99.9 F H 99 16 117/101 98 Intake and Output 08/29/18 08/29/18 08/29/18 06:59 14:59 22:59 Intake Total 625 600 Balance 625 600 Intake: Intake, IV Titration 625 Amount Cefepime 2 gm In Sodium 200 Chloride 0.9% 100 ml @ 200 mls/hr IVPB Q8H [facility] Rx#:[id number] Sodium Chloride 0.9% 1, 300 000 ml @ 75 mls/hr IV . [id number] [facility] Rx#:[id number] Vancomycin 1,250 mg In 125 Sodium Chloride 0.9% 250 ml @ 125 mls/hr IVPB Q8HR [facility] Rx#:[id number] Oral 600 Other: Voiding Method Bedside Commode # Voids 1 1 Weight 73.936 kg Ge: No Acute Distress, Appears Chronically Ill Head: NC,NT Neck: Supple, No Lumphadenopathy palpable cervical, supraclavicular or submandibular Lungs: DIminished bilateral Bases and expiratory wheezes Abdomen: Soft, Tender to palpate, BS present Heart: Tachy, Reg Extremities: Weakness bilateral, No rash or edema Neuro: No sensory or Motor Deficits Results CBC & Chem 7: 08/29/18 16:16 08/29/18 16:16 Labs: Abnormal Lab Results - Last 24 Hours (Table) 08/28/18 08/28/18 08/28/18 Range/Units 15:30 15:30 16:00 WBC 19.4 H (3.8-10.6) k/uL RBC 3.20 L (3.80-5.40) m/uL Hgb 8.5 L (11.4-16.0) gm/dL Hct 26.9 L (34.0-46.0) % RDW 19.4 H (11.5-15.5) % Plt Count 470 H (150-450) k/uL Neutrophils # 17.5 H (1.3-7.7) k/uL Lymphocytes # 0.7 L (1.0-4.8) k/uL PT 12.8 H (9.0-12.0) sec INR 1.2 H (<1.2) Chloride 110 H (98-107) mmol/L Carbon Dioxide 20 L (22-30) mmol/L BUN 5 L (7-17) mg/dL Creatinine 0.39 L (0.52-1.04) mg/dL Total Protein 6.0 L (6.3-8.2) g/dL Albumin 2.5 L (3.5-5.0) g/dL Urine Appearance (Clear) Urine Protein (Negative) Urine Blood (Negative) Ur Squamous Epith Cells (0-4) /hpf Urine Bacteria (None) /hpf Urine Mucus (None) /hpf 08/28/18 Range/Units 17:26 WBC (3.8-10.6) k/uL RBC (3.80-5.40) m/uL Hgb (11.4-16.0) gm/dL Hct (34.0-46.0) % RDW (11.5-15.5) % Plt Count (150-450) k/uL Neutrophils # (1.3-7.7) k/uL Lymphocytes # (1.0-4.8) k/uL PT (9.0-12.0) sec INR (<1.2) Chloride (98-107) mmol/L Carbon Dioxide (22-30) mmol/L BUN (7-17) mg/dL Creatinine (0.52-1.04) mg/dL Total Protein (6.3-8.2) g/dL Albumin (3.5-5.0) g/dL Urine Appearance Cloudy H (Clear) Urine Protein 1+ H (Negative) Urine Blood Small H (Negative) Ur Squamous Epith Cells 10 H (0-4) /hpf Urine Bacteria Rare H (None) /hpf Urine Mucus Rare H (None) /hpf Microbiology - Last 24 Hours (Table) 08/28/18 17:26 Urine Culture - Preliminary Urine,Clean Catch Chest x-ray: report reviewed Assessment and Plan Plan: Assessment and Plan Abdominal x-ray: report reviewed CT scan - abdomen: report reviewed CT scan - pelvis: report reviewed Inability to tolerate PO Intake - IV Hydration, Antiemetics, and treatment of oral thrush initiated - Sales Service Supervisor consultation and monitoring of PO intake Metastatic lung cancer (metastasis from lung to other site) - Liver and ascites Fluid) - Recent Recurrence with diffuse Metastatic Disease - MRI Brain ordered this admission, originally ordered as outpatient, although now with neurological changes, vision changes and persistent nausea and vomiting - Molecular Testing is PDL-1 Sensitive Inability to ambulate due to debility and weakness: - PT/OT to assess and treat while admitted Vaginal bleeding - Resolved last Admission and ELiquis was restarted prior to discharge. Pulmonary emboli - Diagnosed 07/29/18 - She was re-started on Eliquis at last hospital stay. This has not been re- ordered this admission, Ms. Krishna will need Mediport in anticipation of systemic cancer treatment with chemotherapy/immunotherapy therefor will initiate heparin drip and consult surgery to place port this admission. - Likely will require first chemotherapy as inpatient with her recurrent admission due to her over all metastatic cancer burden. Recurrent Abdominal Ascites: - Continue Therapeutic PRN Paracentesis Normocytic Anemia: - Likely component of Vaginal Blood Loss, Iron Deficiency, and Malingnacy Leukocytosis: - [place] Cultures in progress, recent infection axillary boil/abscess History of Early Stage Laryngeal Cancer PLAN: - Await Salcido Cultures, Empiric Antibiotics, IV Hydration, Monitoring of labs - Consult placed for mediport placement - Aspirin, Plavix, Eliquis placed on hold, heparin drip initiated in anticipation of mediport - PT/OT and increase overall strength - Anticipate Chemotherapy to begin inpatient secondary to recurrent admissions for uncotrolled side effects from disease burden - MRI of the brain for full staging with new Vision Changes, neurological changes, persistent nausea and vomiting - Consideration Feeding tube if unable to eat, she feels hungry, unable to tolerate. - Clomatrazole lozenges Oral Thrush [facility] Phys[facility] Attest: I have completed the full history and physical, developed the above impression and plan, I agree with dictation by Tri Walker NP. Dictated as a scribe.
[2018-08-29] MEDS ORDERED: HEPARIN SODIUM,PORCINE 5,000 UNIT/ML 1 ML VIAL IV PRN (15:24)
--- NOTE | 2018-08-29 16:05 | MR ---
EXAMINATION TYPE: MR brain wo/w con DATE OF EXAM: 08/29/2018 COMPARISON: None HISTORY: Metastatic ca, lung ca CONTRAST: Performed utilizing 7 mL intravenous Gadavist gadolinium contrast. TECHNIQUE: Multiplanar, multiecho imaging on a 3.0 Marline magnet is performed through the brain. Stud y is performed within 24 hours of arrival to the hospital. The craniovertebral junction is normal. The pituitary is normal. Diffusion-weighted imaging is performed. There is a right frontal lobe punctate hyperintensity. Punctate area of hyperintensity on diffusion-weighted imaging is hyperintense on T2 and inversion rec overy weighted sequences. Finding is nonspecific but can be related to microvascular ischemic change. This would be acute. No suspicious enhancement is evident following contrast administration. Ventricles and sulci are appropriate for the patient age. Mild mucosal thickening is within the left maxillary sinus. Remaining paranasal sinuses are clear. No rmal vascular flow voids are present. Calvarium appears normal IMPRESSIONS: 1. Focal hyperintensity within the anterior right frontal lobe deep white matter on T2 and inversion recovery weighted sequences as well as diffusion. Acute lacunar infarction be considered. 2. No abnormal enhancement is evident at this centrum semiovale region or elsewhere within the brain.
[2018-08-29 16:25] LABS: Anisocytosis Slight; Basophils % (A) 0 %; Eosinophils # (A) 0.2 k/uL (0-0.7); Eosinophils % (A) 1 %; HCT 26.2 % (34.0-46.0); HGB 8.2 gm/dL (11.4-16.0); Hypochromasia Marked; Lymphocytes # (A) 0.7 k/uL (1.0-4.8); Lymphocytes % (A) 4 %; MCH 27.5 pg (25.0-35.0); MCHC 31.3 g/dL (31.0-37.0); MCV 87.9 fL (80.0-100.0); Mean Platelet Volume 7.6; Monocytes # (A) 0.6 k/uL (0-1.0); Monocytes % (A) 4 %; Neutrophils # (A) 13.7 k/uL (1.3-7.7); Neutrophils % (A) 88 %; Platelet Count 472 k/uL (150-450); Poikilocytosis Moderate; RBC 2.99 m/uL (3.80-5.40); RDW 19.2 % (11.5-15.5); WBC 15.5 k/uL (3.8-10.6)
[2018-08-29 16:34] LABS: ALT 21 U/L (9-52); AST 12 U/L (14-36); Albumin 2.4 g/dL (3.5-5.0); Alkaline Phosphatase 116 U/L (38-126); Anion Gap 6 mmol/L; Blood Urea Nitrogen 5 mg/dL (7-17); Calcium 8.4 mg/dL (8.4-10.2); Carbon Dioxide 20 mmol/L (22-30); Chloride 112 mmol/L (98-107); Glucose 87 mg/dL (74-99); INR 1.2 (<1.2); LDH 540 U/L (313-618); Magnesium 1.8 mg/dL (1.6-2.3); Partial Thromboplastin Time 28.8 sec (22.0-30.0); Prothrombin Time 12.3 sec (9.0-12.0); Sodium 138 mmol/L (137-145); Total Bilirubin 0.4 mg/dL (0.2-1.3); Total Protein 5.8 g/dL (6.3-8.2)
[2018-08-29] MEDS: HEPARIN SOD,PORK IN 0.45% NACL 25,000 UNIT in 0.45% NACL 1 250ML.BAG IV SCH (16:53)
--- NOTE | 2018-08-29 20:29 | P.GSCN ---
History of Present Illness Consult date: 08/29/18 Reason for Consult: Head and neck cancer History of present illness: Patient hospitalized with a combination of dehydration, vision changes, and dysphagia. Patient recently completed radiation to the head and neck region for malignancy. We were consulted for Port-A-Cath placement. It appears the patient's anticoagulation has been held. Patient with poor IV access. Patient requiring ongoing chemotherapy. Review of Systems The patient denies any acute changes in hearing, no chest pain or shortness of breath, no dysuria or hematuria, no headache, no runny nose, no rectal bleeding or melena, no unexplained weight loss Past Medical History Past Medical History: Cancer, GERD/Reflux, Hyperlipidemia, Hypertension, Myocardial Infarction (NH) Additional Past Medical History / Comment(s): BRAIN ANEURSYM, NH 2012, LUNG CA diagnosed 2014, CARPAL TUNNEL RIGHT WRIST, throat CA dx apr 2018 Last Myocardial Infarction Date:: 04/30/2013 History of Any Multi-Drug Resistant Organisms: None Reported Past Surgical History: Heart Catheterization, Orthopedic Surgery, Tubal Lig ation, Uterine Ablation Additional Past Surgical History / Comment(s): ANGIOPLASTY FOR BRAIN ANEURSYM, CARPEL TUNNEL RIGHT WRIST , and laparoscopy, PARTIAL RIGHT LUNG REMOVAL ,PTCA, Past Anesthesia/Blood Transfusion Reactions: No Reported Reaction Past Psychological History: Anxiety, Panic Disorder Smoking Status: Former smoker Past Alcohol Use History: None Reported Additional Past Alcohol Use History / Comment(s): Patient was a smoker and quit in April 2018. She denies any marijuana, illicit drug use or alcohol use. Her daughter is living with her. She is on disability. Past Drug Use History: None Reported - Past Family History Mother Family Medical History: Cancer Father Family Medical History: Cancer Medications and Allergies Home Medications Medication Instructions Recorded Confirmed Type Atorvastatin [Lipitor] 80 mg PO DAILY 10/21/13 08/28/18 History oxyCODONE-APAP 10-325MG [Percocet 1 tab PO Q4HR PRN 07/29/18 08/28/18 History 10-325 mg] Acetaminophen Tab [Tylenol Tab] 500 mg PO Q6H PRN #30 tablet 08/24/18 08/28/18 Rx Cefuroxime Axetil [Ceftin] 500 mg PO BID 3 Days #14 tab 08/24/18 08/28/18 Rx Folic Acid 1 mg PO DAILY #30 tab 08/24/18 08/28/18 Rx Metoprolol Tartrate [Lopressor] 12.5 mg PO BID #60 tab 08/24/18 08/28/18 Rx Pantoprazole Sodium [Protonix] 40 mg PO DAILY #30 tablet. 08/24/18 08/28/18 Rx Aspirin [[place] Aspirin EC] 81 mg PO DAILY 08/28/18 08/28/18 History Clopidogrel Bisulfate [Plavix] 75 mg PO DAILY 08/28/18 08/28/18 History Losartan Potassium 100 mg PO DAILY 08/28/18 08/28/18 History amLODIPine [Norvasc] 10 mg PO DAILY 08/28/18 08/28/18 History Allergies Allergy/AdvReac Type Severity Reaction Status Date / Time Penicillins Allergy Unknown Verified 08/28/18 17:00 Childhood Surgical - Exam Vital Signs Temp Pulse Resp BP Pulse Ox 99.9 F H 99 16 117/101 98 08/28/18 15:03 08/28/18 15:03 08/28/18 15:03 08/28/18 15:03 08/28/18 15:03 Physical exam: General: Well-developed, well-nourished HEENT: Normocephalic, sclerae nonicteric, radiation skin changes lower neck Abdomen: Nontender, nondistended Extremities: No edema Neuro: Alert and oriented Results - Labs 08/29/18 16:16 08/29/18 16:16 Abnormal Lab Results - Last 24 Hours (Table) 08/29/18 08/29/18 08/29/18 Range/Units 16:16 16:16 16:16 WBC 15.5 H (3.8-10.6) k/uL RBC 2.99 L (3.80-5.40) m/uL Hgb 8.2 L (11.4-16.0) gm/dL Hct 26.2 L (34.0-46.0) % RDW 19.2 H (11.5-15.5) % Plt Count 472 H (150-450) k/uL Neutrophils # 13.7 H (1.3-7.7) k/uL Lymphocytes # 0.7 L (1.0-4.8) k/uL PT 12.3 H (9.0-12.0) sec INR 1.2 H (<1.2) Chloride 112 H (98-107) mmol/L Carbon Dioxide 20 L (22-30) mmol/L BUN 5 L (7-17) mg/dL Creatinine 0.43 L (0.52-1.04) mg/dL AST 12 L (14-36) U/L Total Protein 5.8 L (6.3-8.2) g/dL Albumin 2.4 L (3.5-5.0) g/dL Microbiology - Last 24 Hours (Table) 08/28/18 17:26 Urine Culture - Final Urine,Clean Catch 08/28/18 16:00 Blood Culture - Preliminary Blood No Growth after 24 hours Diabetes panel 08/29/18 Range/Units 16:16 Sodium 138 (137-145) mmol/L Potassium 4.0 (3.5-5.1) mmol/L Chloride 112 H (98-107) mmol/L Carbon Dioxide 20 L (22-30) mmol/L BUN 5 L (7-17) mg/dL Creatinine 0.43 L (0.52-1.04) mg/dL Glucose 87 (74-99) mg/dL Calcium 8.4 (8.4-10.2) mg/dL AST 12 L (14-36) U/L ALT 21 (9-52) U/L Alkaline Phosphatase 116 (38-126) U/L Total Protein 5.8 L (6.3-8.2) g/dL Albumin 2.4 L (3.5-5.0) g/dL Calcium panel 08/29/18 Range/Units 16:16 Calcium 8.4 (8.4-10.2) mg/dL Albumin 2.4 L (3.5-5.0) g/dL Pituitary panel 08/29/18 Range/Units 16:16 Sodium 138 (137-145) mmol/L Potassium 4.0 (3.5-5.1) mmol/L Chloride 112 H (98-107) mmol/L Carbon Dioxide 20 L (22-30) mmol/L BUN 5 L (7-17) mg/dL Creatinine 0.43 L (0.52-1.04) mg/dL Glucose 87 (74-99) mg/dL Calcium 8.4 (8.4-10.2) mg/dL Adrenal panel 08/29/18 Range/Units 16:16 Sodium 138 (137-145) mmol/L Potassium 4.0 (3.5-5.1) mmol/L Chloride 112 H (98-107) mmol/L Carbon Dioxide 20 L (22-30) mmol/L BUN 5 L (7-17) mg/dL Creatinine 0.43 L (0.52-1.04) mg/dL Glucose 87 (74-99) mg/dL Calcium 8.4 (8.4-10.2) mg/dL Total Bilirubin 0.4 (0.2-1.3) mg/dL AST 12 L (14-36) U/L ALT 21 (9-52) U/L Alkaline Phosphatase 116 (38-126) U/L Total Protein 5.8 L (6.3-8.2) g/dL Albumin 2.4 L (3.5-5.0) g/dL Assessment and Plan (1) Metastatic lung cancer (metastasis from lung to other site) Narrative/Plan: Options reviewed with the patient. We'll tentatively schedule for Port-A-Cath placement tomorrow. Be sure anticoagulation remains on hold. Risks of bleeding, infection, DVT, pneumothorax, catheter malfunction, anesthesia related complications were discussed. The patient understands and wishes to proceed. Current Visit: Yes Status: Acute Priority: High Code(s): C34.90 - MALIGNANT NEOPLASM OF UNSP PART OF UNSP BRONCHUS OR LUNG SNOMED Code(s): 25573531
[2018-08-29] MEDS: ATORVASTATIN 80 MG TAB PO SCH (22:46)
[2018-08-29] MEDS ORDERED: VANCOMYCIN TROUGH DUE 1 EACH MISC MISCELLANE ONE (23:00)
[2018-08-30] MEDS: VANCOMYCIN 1,250 MG in SODIUM CHLORIDE 0.9% 250 ML IVPB SCH ×3 (01:03→09:10)
[2018-08-30] MEDS: CEFEPIME 2 GM in SODIUM CHLORIDE 0.9% 100 ML IVPB SCH ×3 (01:10→20:17)
[2018-08-30] MEDS: HYDROmorphone 0.5 MG/0.5 ML SYRINGE IVP PRN ×4 (05:06→23:37)
[2018-08-30] MEDS: CLOTRIMAZOLE TROCHE 10 MG TROCHE MUCOUS MEM SCH ×5 (05:10→23:42)
[2018-08-30 07:57] LABS: Anisocytosis Slight; Basophils % (A) 0 %; Eosinophils # (A) 0.1 k/uL (0-0.7); Eosinophils % (A) 1 %; HCT 25.4 % (34.0-46.0); HGB 7.7 gm/dL (11.4-16.0); Hypochromasia Moderate; Lymphocytes # (A) 0.6 k/uL (1.0-4.8); Lymphocytes % (A) 4 %; MCH 25.9 pg (25.0-35.0); MCHC 30.2 g/dL (31.0-37.0); MCV 85.7 fL (80.0-100.0); Mean Platelet Volume 7.2; Monocytes # (A) 0.7 k/uL (0-1.0); Monocytes % (A) 5 %; Neutrophils # (A) 12.7 k/uL (1.3-7.7); Neutrophils % (A) 89 %; Platelet Count 359 k/uL (150-450); Poikilocytosis Moderate; RBC 2.96 m/uL (3.80-5.40); RDW 18.7 % (11.5-15.5); WBC 14.3 k/uL (3.8-10.6)
[2018-08-30 08:07] LABS: INR 1.3 (<1.2)
[2018-08-30 08:13] LABS: ALT 24 U/L (9-52); AST 13 U/L (14-36); Albumin 2.2 g/dL (3.5-5.0); Alkaline Phosphatase 105 U/L (38-126); Anion Gap 6 mmol/L; Blood Urea Nitrogen 4 mg/dL (7-17); Calcium 8.2 mg/dL (8.4-10.2); Carbon Dioxide 21 mmol/L (22-30); Chloride 113 mmol/L (98-107); Glucose 72 mg/dL (74-99); Magnesium 1.7 mg/dL (1.6-2.3); Potassium 3.9 mmol/L (3.5-5.1); Sodium 140 mmol/L (137-145); Total Bilirubin 0.5 mg/dL (0.2-1.3); Total Protein 5.3 g/dL (6.3-8.2)
[2018-08-30] MEDS: amLODIPine 10 MG TAB PO SCH ×2 (09:10→09:14)
[2018-08-30] MEDS: MEGESTROL 400 MG/10 ML CUP PO SCH (09:10)
[2018-08-30] MEDS: PANTOPRAZOLE 40 MG TABLET PO SCH (09:10)
[2018-08-30] MEDS: METOPROLOL TARTRATE 12.5 MG TAB PO SCH ×2 (09:10→20:20)
[2018-08-30] MEDS: LOSARTAN 50 MG TAB PO SCH ×2 (09:10→09:14)
[2018-08-30] MEDS: SODIUM CHLORIDE 0.9% 1,000 ML IV SCH ×2 (09:16→21:29)
--- NOTE | 2018-08-30 10:04 | P.PN ---
Subjective Patient says that she's doing better today She is nothing by mouth for port placement Heparin drip initiated by oncology appreciated recommendations. He said that she is having no cough no shortness of breath at this time. No chest pain or racing heart. She has abdominal pain time and again. No bowel movement yet but passing gases. Objective - Vital Signs Vital signs: Vital Signs Temp 99.1 F 08/30/18 05:50 Pulse 113 H 08/30/18 05:50 Resp 22 08/30/18 05:50 BP 115/78 08/30/18 05:50 Pulse Ox 96 08/30/18 07:51 Intake & Output 08/29/18 08/30/18 08/30/18 18:59 06:59 18:59 Intake Total 600 1608.397 Balance 600 1608.397 Weight 73.936 kg Intake: Intake, IV Titration 1608.397 Amount Cefepime 2 gm In Sodium 100 Chloride 0.9% 100 ml @ 200 mls/hr IVPB Q8H [facility] Rx#:[id number] Doxycycline 100 mg In 100 Sodium Chloride 0.9% 100 ml @ 100 mls/hr IVPB Q12HR [facility] Rx#:[id number] Heparin Sod,Pork in 0.45% 83.397 NaCl 25,000 unit In 0.45 % NaCl 1 250ml.bag @ 18 UNITS/KG/HR 13.308 mls/hr IV .[id number] [facility] Rx#: [id number] Sodium Chloride 0.9% 1, 1200 000 ml @ 75 mls/hr IV . [id number] [facility] Rx#:[id number] Vancomycin 1,250 mg In 125 Sodium Chloride 0.9% 250 ml @ 125 mls/hr IVPB Q8H [facility] Rx#:[id number] Oral 600 Other: Voiding Method Bedside Commode # Voids 2 2 - Exam On exam, alert and oriented x3. HEENT: Conjunctivae normal. eyes normal. NECK: No JVD. No thyroid enlargement. No LNs hyperpigmented skin and the neck due to recent radiation CARDIOVASCULAR: S1, S2 muffled. No murmur RESPIRATION: Breath sounds diminished in the bases. No rhonchi or crackles. No bronchial breathing. ABDOMEN: Soft, nontender . No guarding. no masses palpable. No ascites, No hepatosplenomegaly.Bowel sounds heard. LEGS: No edema. no swelling NERVOUS SYSTEM: Cranial N 2-12 grossly normal. Moves all 4 limbs. No focal deficits. No sensory deficit. No signs of cerebellar dysfucntion. Skin: no ulcer no rash - Labs CBC & Chem 7: 08/30/18 07:32 08/30/18 07:32 Labs: Abnormal Lab Results - Last 24 Hours (Table) 08/29/18 08/29/18 08/29/18 Range/Units 16:16 16:16 16:16 WBC 15.5 H (3.8-10.6) k/uL RBC 2.99 L (3.80-5.40) m/uL Hgb 8.2 L (11.4-16.0) gm/dL Hct 26.2 L (34.0-46.0) % MCHC (31.0-37.0) g/dL RDW 19.2 H (11.5-15.5) % Plt Count 472 H (150-450) k/uL Neutrophils # 13.7 H (1.3-7.7) k/uL Lymphocytes # 0.7 L (1.0-4.8) k/uL PT 12.3 H (9.0-12.0) sec INR 1.2 H (<1.2) APTT (22.0-30.0) sec Chloride 112 H (98-107) mmol/L Carbon Dioxide 20 L (22-30) mmol/L BUN 5 L (7-17) mg/dL Creatinine 0.43 L (0.52-1.04) mg/dL Glucose (74-99) mg/dL Calcium (8.4-10.2) mg/dL AST 12 L (14-36) U/L Total Protein 5.8 L (6.3-8.2) g/dL Albumin 2.4 L (3.5-5.0) g/dL 08/29/18 08/30/18 08/30/18 Range/Units 22:15 07:32 07:32 WBC 14.3 H (3.8-10.6) k/uL RBC 2.96 L (3.80-5.40) m/uL Hgb 7.7 L (11.4-16.0) gm/dL Hct 25.4 L (34.0-46.0) % MCHC 30.2 L (31.0-37.0) g/dL RDW 18.7 H (11.5-15.5) % Plt Count (150-450) k/uL Neutrophils # 12.7 H (1.3-7.7) k/uL Lymphocytes # 0.6 L (1.0-4.8) k/uL PT (9.0-12.0) sec INR (<1.2) APTT 46.8 H (22.0-30.0) sec Chloride 113 H (98-107) mmol/L Carbon Dioxide 21 L (22-30) mmol/L BUN 4 L (7-17) mg/dL Creatinine 0.46 L (0.52-1.04) mg/dL Glucose 72 L (74-99) mg/dL Calcium 8.2 L (8.4-10.2) mg/dL AST 13 L (14-36) U/L Total Protein 5.3 L (6.3-8.2) g/dL Albumin 2.2 L (3.5-5.0) g/dL 08/30/18 Range/Units 07:32 WBC (3.8-10.6) k/uL RBC (3.80-5.40) m/uL Hgb (11.4-16.0) gm/dL Hct (34.0-46.0) % MCHC (31.0-37.0) g/dL RDW (11.5-15.5) % Plt Count (150-450) k/uL Neutrophils # (1.3-7.7) k/uL Lymphocytes # (1.0-4.8) k/uL PT 13.0 H (9.0-12.0) sec INR 1.3 H (<1.2) APTT (22.0-30.0) sec Chloride (98-107) mmol/L Carbon Dioxide (22-30) mmol/L BUN (7-17) mg/dL Creatinine (0.52-1.04) mg/dL Glucose (74-99) mg/dL Calcium (8.4-10.2) mg/dL AST (14-36) U/L Total Protein (6.3-8.2) g/dL Albumin (3.5-5.0) g/dL Microbiology - Last 24 Hours (Table) 08/28/18 17:26 Urine Culture - Final Urine,Clean Catch 08/28/18 16:00 Blood Culture - Preliminary Blood No Growth after 24 hours Assessment and Plan Assessment: - Healthcare care associated pneumonia in the left lower lobe - 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 Blood cultures have been negative so far. We will DC the vancomycin and continue cefepime and doxycycline for now. Slow taper depending upon the patient's condition - Patient is getting a Mediport placement today for possible chemotherapy - Started on Megace we'll see how she does - Continue IV fluids - Patient has been started on heparin as she has a history of recent PE. Her glucose was held during the last admission and she was having vaginal bleeding. We'll monitor for any bleeding while on heparin - We'll continue to follow the patient up Time with Patient: Greater than 30
[2018-08-30] MEDS: HEPARIN SOD,PORK IN 0.45% NACL 25,000 UNIT in 0.45% NACL 1 250ML.BAG IV SCH (11:40)
[2018-08-30] MEDS: DOXYCYCLINE 100 MG in SODIUM CHLORIDE 0.9% 100 ML IVPB SCH ×2 (11:52→20:51)
[2018-08-30] MEDS: FOLIC ACID 1 MG TAB PO SCH (12:07)
[2018-08-30] MEDS ORDERED: SODIUM CHLORIDE 0.9% 1,000 ML IV ONE ×2 (13:59)
[2018-08-30] MEDS ORDERED: VANCOMYCIN TROUGH DUE 1 EACH MISC MISCELLANE ONE (16:00)
--- NOTE | 2018-08-30 17:12 | P.PN ---
Progress Note - Text Progress Note Date: 08/30/18 Patient doing well today. We'll proceed with Port-A-Cath placement. Risks again reviewed with the patient yesterday. All questions answered.
[2018-08-30] MEDS ORDERED: LIDOCAINE 1% INJ 10MG/ML (20 ML MDV) ONE (17:49)
[2018-08-30] MEDS ORDERED: MIDAZOLAM 2 MG/2 ML VIAL ONE (17:49)
[2018-08-30] MEDS ORDERED: fentaNYL (PF) 50 MCG/ML 2 ML AMP ONE (17:49)
[2018-08-30] MEDS ORDERED: PROPOFOL 10 MG/ML 20 ML VIAL IV ONE (17:49)
[2018-08-30] MEDS ORDERED: LIDOCAINE 1% INJ 10MG/ML (20 ML MDV) SQ ONE ×2 (17:56)
[2018-08-30] MEDS ORDERED: HEPARIN SODIUM,PORCINE 100 UNIT/ML 5 ML VIAL IV ONE ×2 (17:56)
[2018-08-30] MEDS ORDERED: HYDROcodone/APAP 5-325MG 1 EACH TAB PO PRN (18:44)
--- NOTE | 2018-08-30 18:45 | P.OP ---
Date of Procedure: 08/30/18 Procedure(s) Performed: PREOPERATIVE DIAGNOSIS: Lung cancer POSTOPERATIVE DIAGNOSIS: Same PROCEDURE: Port-A-Cath placement SURGEON: Beverly EBL: Minimal ANESTHESIA: Sedation COMPLICATIONS: None OPERATIVE PROCEDURE: Patient was brought and placed on the operative table in the supine position. The patient was sedated per anesthesia that time. The chest and neck were prepped and draped in usual sterile fashion. The ultrasound probe was used to identify the location of the right internal jugular vein. The skin was localized with lidocaine. The Seldinger needle was advanced into the IJ under ultrasound guidance. The wire was advanced through the needle under fluoroscopic guidance into the superior vena cava. A port pocket was created in the right infraclavicular location. The catheter was tunneled from the wire entrance site to the port pocket. The port was then connected to the catheter. The dilator introducer was threaded over the guidewire. The guidewire and dilator were then removed. The catheter was advanced through the introducer and introducer was then removed. The tip was seen to be in the right atrial junction. Port was flushed with both saline and a Hep-Lock solution. There was good flow both in and out of the port. The port was sutured in underlying tissues using 3-0 silk sutures. The subcutaneous tissues were reapproximated using 3-0 Vicryl sutures and the skin at both locations using 4-0 Monocryl sutures. Skin glue and sterile dressings then applied. DISPOSITION: Stable to recovery room
--- NOTE | 2018-08-30 19:20 | XR ---
EXAMINATION TYPE: XR chest 1V confirm line plcca DATE OF EXAM: 08/30/2018 COMPARISON: 08/28/2018 HISTORY: Check line placement TECHNIQUE: Single frontal view of the chest is obtained. FINDINGS: There is some infiltrate In the left lower lobe. There is blunting of the costophrenic angles. No heart failure. IMPRESSION: Catheter appears in good position. Left lower lobe pneumonia that probably increased com pared to last exam.
[2018-08-30 20:18] LABS: Anion Gap 8 mmol/L; Blood Urea Nitrogen 4 mg/dL (7-17); Calcium 8.6 mg/dL (8.4-10.2); Carbon Dioxide 18 mmol/L (22-30); Chloride 114 mmol/L (98-107); Glucose 69 mg/dL (74-99); Potassium 3.9 mmol/L (3.5-5.1); Sodium 140 mmol/L (137-145)
[2018-08-30] MEDS: ATORVASTATIN 80 MG TAB PO SCH (20:23)
--- NOTE | 2018-08-30 21:16 | P.PN ---
Subjective Progress Note Date: 08/30/18 Principal diagnosis: Metastatic Cancer Still anxious today, although overall feeling better. I have discussed MRI findings with Radiation oncology and with Primary team. She is asymptomatic, it is felt that this is able to be monitored, she will continue on her anticoagulation after her mediport is placed will restart ASA, PLavix and Eliquis. Objective - Vital Signs Vital signs: Vital Signs Temp 98.0 F 08/30/18 19:40 Pulse 112 H 08/30/18 19:40 Resp 16 08/30/18 19:40 BP 139/73 08/30/18 19:40 Pulse Ox 98 08/30/18 19:40 Intake & Output 08/30/18 08/30/18 08/31/18 06:59 18:59 06:59 Intake Total 2234.576 5013 Output Total 2 Balance 4488.775 4816 Intake: IV 400 Intake, IV Titration 1608.397 825 Amount Cefepime 2 gm In Sodium 100 Chloride 0.9% 100 ml @ 200 mls/hr IVPB Q8H [facility] Rx#:[id number] Doxycycline 100 mg In 100 100 Sodium Chloride 0.9% 100 ml @ 100 mls/hr IVPB Q12HR [facility] Rx#:[id number] Heparin Sod,Pork in 0.45% 83.397 NaCl 25,000 unit In 0.45 % NaCl 1 250ml.bag @ 18 UNITS/KG/HR 13.308 mls/hr IV .[id number] [facility] Rx#: [id number] Sodium Chloride 0.9% 1, 1200 600 000 ml @ 75 mls/hr IV . [id number] [facility] Rx#:[id number] Vancomycin 1,250 mg In 125 125 Sodium Chloride 0.9% 250 ml @ 125 mls/hr IVPB Q8H [facility] Rx#:[id number] Oral 20 Output: Estimated Blood Loss 2 Other: Voiding Method Bedside Commode Bedside Commode # Voids 2 1 - Exam Ge: No Acute Distress, Appears Chronically Ill Head: NC,NT Neck: Supple, No Lumphadenopathy palpable cervical, supraclavicular or submandibular Lungs: DIminished bilateral Bases and expiratory wheezes Abdomen: Soft, Tender to palpate, BS present Heart: Tachy, Reg Extremities: Weakness bilateral, No rash or edema Neuro: No sensory or Motor Deficits - Labs CBC & Chem 7: 08/30/18 07:32 08/30/18 19:58 Labs: Abnormal Lab Results - Last 24 Hours (Table) 08/29/18 08/30/18 08/30/18 Range/Units 22:15 07:32 07:32 WBC 14.3 H (3.8-10.6) k/uL RBC 2.96 L (3.80-5.40) m/uL Hgb 7.7 L (11.4-16.0) gm/dL Hct 25.4 L (34.0-46.0) % MCHC 30.2 L (31.0-37.0) g/dL RDW 18.7 H (11.5-15.5) % Neutrophils # 12.7 H (1.3-7.7) k/uL Lymphocytes # 0.6 L (1.0-4.8) k/uL PT (9.0-12.0) sec INR (<1.2) APTT 46.8 H (22.0-30.0) sec Chloride 113 H (98-107) mmol/L Carbon Dioxide 21 L (22-30) mmol/L BUN 4 L (7-17) mg/dL Creatinine 0.46 L (0.52-1.04) mg/dL Glucose 72 L (74-99) mg/dL Calcium 8.2 L (8.4-10.2) mg/dL AST 13 L (14-36) U/L Total Protein 5.3 L (6.3-8.2) g/dL Albumin 2.2 L (3.5-5.0) g/dL 08/30/18 08/30/18 Range/Units 07:32 19:58 WBC (3.8-10.6) k/uL RBC (3.80-5.40) m/uL Hgb (11.4-16.0) gm/dL Hct (34.0-46.0) % MCHC (31.0-37.0) g/dL RDW (11.5-15.5) % Neutrophils # (1.3-7.7) k/uL Lymphocytes # (1.0-4.8) k/uL PT 13.0 H (9.0-12.0) sec INR 1.3 H (<1.2) APTT (22.0-30.0) sec Chloride 114 H (98-107) mmol/L Carbon Dioxide 18 L (22-30) mmol/L BUN 4 L (7-17) mg/dL Creatinine 0.46 L (0.52-1.04) mg/dL Glucose 69 L (74-99) mg/dL Calcium (8.4-10.2) mg/dL AST (14-36) U/L Total Protein (6.3-8.2) g/dL Albumin (3.5-5.0) g/dL Microbiology - Last 24 Hours (Table) 08/28/18 16:00 Blood Culture - Preliminary Blood No Growth after 48 hours 08/28/18 17:26 Urine Culture - Final Urine,Clean Catch Assessment and Plan Plan: Assessment and Plan Abdominal x-ray: report reviewed CT scan - abdomen: report reviewed CT scan - pelvis: report reviewed Inability to tolerate PO Intake - IV Hydration, Antiemetics, and treatment of oral thrush initiated - Nursing Home Admissions Director consultation and monitoring of PO intake Metastatic lung cancer (metastasis from lung to other site) - Liver and ascites Fluid) - Recent Recurrence with diffuse Metastatic Disease - MRI Brain Reviewed and no evidence of metastatic disease to brain, concern for lacunar infarcts, possibly old, unknown although patient is asymptomatic and will be restarted on anticoagulation after mediport. No further intervention needed at this time related to these findings. - Molecular Testing is PDL-1 Sensitive Inability to ambulate due to debility and weakness: - PT/OT to assess and treat while admitted Vaginal bleeding - Resolved last Admission and ELiquis was restarted prior to discharge. Pulmonary emboli - Diagnosed 07/29/18 - She was re-started on Eliquis at last hospital stay. This has not been re- ordered this admission, Ms. Krishna will need Mediport in anticipation of systemic cancer treatment with chemotherapy/immunotherapy therefor will initiate heparin drip and consult surgery to place port this admission. - Likely will require first chemotherapy as inpatient with her recurrent admission due to her over all metastatic cancer burden. Recurrent Abdominal Ascites: - Continue Therapeutic PRN Paracentesis Normocytic Anemia: - Likely component of Vaginal Blood Loss, Iron Deficiency, and M[place]acy Leukocytosis: - [place] Cultures in progress, recent infection axillary boil/abscess History of Early Stage Laryngeal Cancer PLAN: - Continue with plan for mediport - Cultures are negative this far, May discontinue Vancomycin - Will plan to begin chemotherapy as inpatient secondary to inability to avoid re-admission secondary to cancer burden side effects. Will give first treatment of Carboplatin and almta. I will discuss with pharmacy tomorrow, plan for chemo tomorrow. - Stop Heparin Drip in am and resume Eliquis, Aspirin and PLavix if ok with surgery. - Daily CBC and CMP on chemo Tri Walker [facility] Physician Attest: I have completed the full history and physical, developed the above impression and plan, I agree with dictation by Tri Walker NP. Dictated as a scribe.
[2018-08-31] MEDS: CEFEPIME 2 GM in SODIUM CHLORIDE 0.9% 100 ML IVPB SCH ×3 (01:00→17:00)
[2018-08-31] MEDS: HEPARIN SOD,PORK IN 0.45% NACL 25,000 UNIT in 0.45% NACL 1 250ML.BAG IV SCH (04:01)
[2018-08-31] MEDS: CLOTRIMAZOLE TROCHE 10 MG TROCHE MUCOUS MEM SCH ×5 (06:05→20:18)
[2018-08-31] MEDS: HYDROmorphone 0.5 MG/0.5 ML SYRINGE IVP PRN ×5 (06:05→19:34)
--- NOTE | 2018-08-31 07:16 | FL ---
EXAMINATION TYPE: FL guided central line placemt DATE OF EXAM: 08/30/2018 CLINICAL HISTORY: Port-A-Cath placement. Fluoroscopic documentation TECHNIQUE: Fluoroscopy. COMPARISON: None. FINDINGS: Fluoroscopic guidance was provided during procedure performed by Dr. Paul. A total of 17 seconds of fluoroscopic time was utilized during the procedure and 1 spot images was acquired during Port-A-Cath placement. IMPRESSION: As Above.
[2018-08-31] MEDS: DOXYCYCLINE 100 MG in SODIUM CHLORIDE 0.9% 100 ML IVPB SCH ×2 (09:16→20:17)
[2018-08-31] MEDS: PANTOPRAZOLE 40 MG TABLET PO SCH (09:16)
[2018-08-31] MEDS: METOPROLOL TARTRATE 12.5 MG TAB PO SCH ×2 (09:16→20:17)
[2018-08-31] MEDS: MEGESTROL 400 MG/10 ML CUP PO SCH (09:16)
[2018-08-31] MEDS: FOLIC ACID 1 MG TAB PO SCH (10:34)
[2018-08-31] MEDS: SODIUM CHLORIDE 0.9% 1,000 ML IV SCH (10:34)
--- NOTE | 2018-08-31 10:56 | P.PN ---
<Nicol Gillespie Bridgette - Last Filed: 08/31/18 10:53> Subjective Progress Note Date: 08/31/18 HISTORY OF PRESENT ILLNESS: Patient is s/p port-a-cath placement with Dr. Paul. POD #1. She reports mild soreness near surgical site. She states she is supposed to start chemotherapy today. PHYSICAL EXAM: VITAL SIGNS: Reviewed. GENERAL: Well-developed in no acute distress. HEENT: No sclera icterus. Extraocular movements grossly intact. Moist buccal mucosa. Head is atraumatic, normocephalic. ABDOMEN: Soft. Nondistended. Nontender. NEUROLOGIC: Alert and oriented. Cranial nerves II through XII grossly intact. CHEST: Right chest surgical site with dressing noted. Clean dry and intact. Mild soreness. No drainage or erythema noted ASSESSMENT: 1. Lung cancer, status post Port-A-Cath placement PLAN: Patient is stable from a surgical standpoint. Chemotherapy per oncology. Nurse practitioner note has been reviewed by physician. Signing provider agrees with the documented findings, assessment, and plan of care. Objective - Vital Signs Vital signs: Vital Signs Temp 98.3 F 08/31/18 05:00 Pulse 113 H 08/31/18 05:00 Resp 18 08/31/18 08:15 BP 134/86 08/31/18 05:00 Pulse Ox 94 L 08/31/18 05:00 Intake & Output 08/30/18 08/31/18 08/31/18 18:59 06:59 18:59 Intake Total 1245 1675.88 Output Total 2 Balance 1243 1675.88 Intake: IV 400 Intake, IV Titration 825 1085.88 Amount Cefepime 2 gm In Sodium 200 Chloride 0.9% 100 ml @ 200 mls/hr IVPB Q8H [facility] Rx#:[id number] Doxycycline 100 mg In 100 100 Sodium Chloride 0.9% 100 ml @ 100 mls/hr IVPB Q12HR [facility] Rx#:[id number] Heparin Sod,Pork in 0.45% 110.88 NaCl 25,000 unit In 0.45 % NaCl 1 250ml.bag @ 18 UNITS/KG/HR 13.308 mls/hr IV .[id number] [facility] Rx#: [id number] Sodium Chloride 0.9% 1, 600 675 000 ml @ 75 mls/hr IV . [id number] [facility] Rx#:[id number] Vancomycin 1,250 mg In 125 Sodium Chloride 0.9% 250 ml @ 125 mls/hr IVPB Q8H [facility] Rx#:[id number] Oral 20 590 Output: Estimated Blood Loss 2 Other: Voiding Method Bedside Commode Bedside Commode # Voids 1 3 # Bowel Movements 1 - Labs CBC & Chem 7: 08/30/18 07:32 08/30/18 19:58 Labs: Abnormal Lab Results - Last 24 Hours (Table) 08/30/18 08/31/18 Range/Units 19:58 03:00 APTT >200.0 H* (22.0-30.0) sec Chloride 114 H (98-107) mmol/L Carbon Dioxide 18 L (22-30) mmol/L BUN 4 L (7-17) mg/dL Creatinine 0.46 L (0.52-1.04) mg/dL Glucose 69 L (74-99) mg/dL Microbiology - Last 24 Hours (Table) 08/28/18 16:00 Blood Culture - Preliminary Blood No Growth after 48 hours <Parag Paul - Last Filed: 08/31/18 13:54> Subjective As above. Patient doing well after port placement. We'll sign off. Please call if needed. Objective - Vital Signs Vital signs: Vital Signs Temp 98.2 F 08/31/18 12:36 Pulse 112 H 08/31/18 12:36 Resp 16 08/31/18 12:36 BP 107/58 08/31/18 12:36 Pulse Ox 93 L 08/31/18 12:36 Intake & Output 08/30/18 08/31/18 08/31/18 18:59 06:59 18:59 Intake Total 1245 1675.88 110.511 Output Total 2 Balance 1243 1675.88 110.511 Intake: IV 400 Intake, IV Titration 825 1085.88 110.511 Amount Cefepime 2 gm In Sodium 200 Chloride 0.9% 100 ml @ 200 mls/hr IVPB Q8H [facility] Rx#:[id number] Doxycycline 100 mg In 100 100 Sodium Chloride 0.9% 100 ml @ 100 mls/hr IVPB Q12HR [facility] Rx#:[id number] Heparin Sod,Pork in 0.45% 110.88 110.511 NaCl 25,000 unit In 0.45 % NaCl 1 250ml.bag @ 18 UNITS/KG/HR 13.308 mls/hr IV .[id number] [facility] Rx#: [id number] Sodium Chloride 0.9% 1, 600 675 000 ml @ 75 mls/hr IV . [id number] [facility] Rx#:[id number] Vancomycin 1,250 mg In 125 Sodium Chloride 0.9% 250 ml @ 125 mls/hr IVPB Q8H [facility] Rx#:[id number] Oral 20 590 Output: Estimated Blood Loss 2 Other: Voiding Method Bedside Commode Bedside Commode # Voids 1 3 # Bowel Movements 1 - Labs CBC & Chem 7: 08/30/18 07:32 08/30/18 19:58 Labs: Abnormal Lab Results - Last 24 Hours (Table) 08/30/18 08/31/18 08/31/18 Range/Units 19:58 03:00 12:05 PT 14.4 H (9.0-12.0) sec INR 1.4 H (<1.2) APTT >200.0 H* >200.0 H* (22.0-30.0) sec Chloride 114 H (98-107) mmol/L Carbon Dioxide 18 L (22-30) mmol/L BUN 4 L (7-17) mg/dL Creatinine 0.46 L (0.52-1.04) mg/dL Glucose 69 L (74-99) mg/dL Microbiology - Last 24 Hours (Table) 08/28/18 16:00 Blood Culture - Preliminary Blood No Growth after 48 hours Assessment and Plan (1) Metastatic lung cancer (metastasis from lung to other site) Current Visit: Yes Status: Acute Priority: High Code(s): C34.90 - MALIGNANT NEOPLASM OF UNSP PART OF UNSP BRONCHUS OR LUNG SNOMED Code(s): 57050543
[2018-08-31 12:41] LABS: INR 1.4 (<1.2); Prothrombin Time 14.4 sec (9.0-12.0)
[2018-08-31 13:14] LABS: Partial Thromboplastin Time >200.0 sec (22.0-30.0)
--- NOTE | 2018-08-31 13:38 | P.PN ---
Subjective Progress Note Date: 08/31/18 Principal diagnosis: Metastatic Cancer Patient is eating well, and hungry, just the taste is causing her to feel nauseated, this is likely secondary to her scant thrush which maybe more extensive unable to be seen, lozenges are not well tolerated, will give one dose IV Diflucan and proceed with chemotherapy. SHe is moving her bowels, in good spirits today. I have discussed the plan for carboplatin and almta as well as potential risks, benefits, side effects. ALl questions answered by patient and daughter and understanding stated. Objective - Vital Signs Vital signs: Vital Signs Temp 98.2 F 08/31/18 12:36 Pulse 112 H 08/31/18 12:36 Resp 16 08/31/18 12:36 BP 107/58 08/31/18 12:36 Pulse Ox 93 L 08/31/18 12:36 Intake & Output 08/30/18 08/31/18 08/31/18 18:59 06:59 18:59 Intake Total 1245 1675.88 110.511 Output Total 2 Balance 1243 1675.88 110.511 Intake: IV 400 Intake, IV Titration 825 1085.88 110.511 Amount Cefepime 2 gm In Sodium 200 Chloride 0.9% 100 ml @ 200 mls/hr IVPB Q8H [facility] Rx#:[id number] Doxycycline 100 mg In 100 100 Sodium Chloride 0.9% 100 ml @ 100 mls/hr IVPB Q12HR [facility] Rx#:[id number] Heparin Sod,Pork in 0.45% 110.88 110.511 NaCl 25,000 unit In 0.45 % NaCl 1 250ml.bag @ 18 UNITS/KG/HR 13.308 mls/hr IV .[id number] [facility] Rx#: [id number] Sodium Chloride 0.9% 1, 600 675 000 ml @ 75 mls/hr IV . [id number] [facility] Rx#:[id number] Vancomycin 1,250 mg In 125 Sodium Chloride 0.9% 250 ml @ 125 mls/hr IVPB Q8H NAINA Rx#:[id number] Oral 20 590 Output: Estimated Blood Loss 2 Other: Voiding Method Bedside Commode Bedside Commode # Voids 1 3 # Bowel Movements 1 - Exam Ge: No Acute Distress, Appears Chronically Ill Head: NC,NT Neck: Supple, No Lumphadenopathy palpable cervical, supraclavicular or submandibular Lungs: DIminished bilateral Bases and expiratory wheezes Abdomen: Soft, Tender to palpate, BS present Heart: Tachy, Reg Extremities: Weakness bilateral, No rash or edema Neuro: No sensory or Motor Deficits - Labs CBC & Chem 7: 08/31/18 14:14 08/31/18 14:14 Labs: Abnormal Lab Results - Last 24 Hours (Table) 08/30/18 08/31/18 08/31/18 Range/Units 19:58 03:00 12:05 PT 14.4 H (9.0-12.0) sec INR 1.4 H (<1.2) APTT >200.0 H* >200.0 H* (22.0-30.0) sec Chloride 114 H (98-107) mmol/L Carbon Dioxide 18 L (22-30) mmol/L BUN 4 L (7-17) mg/dL Creatinine 0.46 L (0.52-1.04) mg/dL Glucose 69 L (74-99) mg/dL Microbiology - Last 24 Hours (Table) 08/28/18 16:00 Blood Culture - Preliminary Blood No Growth after 48 hours Assessment and Plan Plan: Assessment and Plan Abdominal x-ray: report reviewed CT scan - abdomen: report reviewed CT scan - pelvis: report reviewed Inability to tolerate PO Intake - IV Hydration, Antiemetics, and treatment of oral thrush initiated - Plumbing Engineer consultation and monitoring of PO intake Metastatic lung cancer (metastasis from lung to other site) - Liver and ascites Fluid) - Recent Recurrence with diffuse Metastatic Disease - MRI Brain Reviewed and no evidence of metastatic disease to brain, concern for lacunar infarcts, possibly old, unknown although patient is asymptomatic and will be restarted on anticoagulation after mediport. No further intervention needed at this time related to these findings. - Molecular Testing is PDL-1 Sensitive Inability to ambulate due to debility and weakness: - PT/OT to assess and treat while admitted Vaginal bleeding - Resolved last Admission and ELiquis was restarted prior to discharge. Pulmonary emboli - Diagnosed 07/29/18 - She was re-started on Eliquis at last hospital stay. This has not been re- ordered this admission, Ms. Krishna status post mediport placement. - Likely will require first chemotherapy as inpatient with her recurrent admis jennifer due to her over all metastatic cancer burden. Recurrent Abdominal Ascites: - Continue Therapeutic PRN Paracentesis Normocytic Anemia: - Likely component of Vaginal Blood Loss, Iron Deficiency, and Malingnacy Leukocytosis: - [place] Cultures in progress, recent infection axillary boil/abscess History of Early Stage Laryngeal Cancer PLAN: - Stop Heparin and restart DOAC therapy now - Ok to access mediport and intiate chemotherapy with Carboplatin and Almta - COntinue Daily FOlic Acid - B12 x1 today - Diflucan x1 today for thrush - Daily CBC and CMP on chemo - All qustions answered and understanding stated. Tri Walker [facility] Physician Attest: I have completed the full history and physical, developed the above impression and plan, I agree with dictation by Tri Walker NP. Dictated as a scribe.
[2018-08-31] MEDS ORDERED: DEXAMETHASONE SOD PHOSPHATE 10 MG/ML 1 ML VIAL IV ONE (14:30)
[2018-08-31] MEDS ORDERED: ONDANSETRON 16 MG in SODIUM CHLORIDE 0.9% 50 ML IVPB ONE (14:30)
[2018-08-31] MEDS ORDERED: FAMOTIDINE 20 MG/2 ML VIAL IV ONE (14:30)
[2018-08-31 14:50] LABS: Anisocytosis Slight; Basophils % (A) 0 %; Eosinophils # (A) 0.2 k/uL (0-0.7); Eosinophils % (A) 1 %; HCT 24.6 % (34.0-46.0); HGB 7.4 gm/dL (11.4-16.0); Hypochromasia Marked; Lymphocytes # (A) 0.7 k/uL (1.0-4.8); Lymphocytes % (A) 5 %; MCH 26.8 pg (25.0-35.0); MCHC 30.2 g/dL (31.0-37.0); MCV 88.8 fL (80.0-100.0); Monocytes # (A) 0.8 k/uL (0-1.0); Monocytes % (A) 6 %; Neutrophils # (A) 12.2 k/uL (1.3-7.7); Neutrophils % (A) 86 %; Platelet Count 235 k/uL (150-450); Poikilocytosis Moderate; RBC 2.77 m/uL (3.80-5.40); RDW 19.4 % (11.5-15.5); WBC 14.3 k/uL (3.8-10.6)
[2018-08-31 14:54] LABS: ALT 21 U/L (9-52); AST 12 U/L (14-36); Albumin 2.3 g/dL (3.5-5.0); Alkaline Phosphatase 105 U/L (38-126); Anion Gap 6 mmol/L; Blood Urea Nitrogen 7 mg/dL (7-17); Calcium 8.2 mg/dL (8.4-10.2); Carbon Dioxide 17 mmol/L (22-30); Chloride 114 mmol/L (98-107); Glucose 119 mg/dL (74-99); Sodium 137 mmol/L (137-145); Total Bilirubin 0.3 mg/dL (0.2-1.3); Total Protein 5.6 g/dL (6.3-8.2)
[2018-08-31] MEDS ORDERED: PEMETREXED DISODIUM IV ONE (15:00)
[2018-08-31] MEDS ORDERED: SODIUM CHLORIDE 0.9% IV ONE ×2 (15:00→15:15)
[2018-08-31] MEDS ORDERED: CARBOPLATIN IV ONE (15:15)
[2018-08-31] MEDS: ATORVASTATIN 80 MG TAB PO SCH (20:17)
[2018-08-31] MEDS: APIXABAN 5 MG TAB PO SCH (20:17)
[2018-08-31] MEDS ORDERED: CYANOCOBALAMIN 1,000 MCG/ML 1 ML VIAL IM ONE (22:30)
[2018-08-31] MEDS ORDERED: FLUCONAZOLE 150 MG TAB PO ONE (22:30)
[2018-09-01] MEDS: CLOTRIMAZOLE TROCHE 10 MG TROCHE MUCOUS MEM SCH ×4 (00:02→15:21)
[2018-09-01] MEDS: HYDROmorphone 0.5 MG/0.5 ML SYRINGE IVP PRN ×3 (00:09→13:56)
[2018-09-01] MEDS: CEFEPIME 2 GM in SODIUM CHLORIDE 0.9% 100 ML IVPB SCH ×2 (02:12→12:29)
[2018-09-01] MEDS: SODIUM CHLORIDE 0.9% 1,000 ML IV SCH (05:26)
[2018-09-01 05:32] VITALS: TEMP 97.8
[2018-09-01 08:01] LABS: INR 1.2 (<1.2); Prothrombin Time 12.9 sec (9.0-12.0)
[2018-09-01 08:11] LABS: ALT 24 U/L (9-52); AST 12 U/L (14-36); Albumin 2.3 g/dL (3.5-5.0); Alkaline Phosphatase 94 U/L (38-126); Anion Gap 6 mmol/L; Blood Urea Nitrogen 10 mg/dL (7-17); Calcium 8.4 mg/dL (8.4-10.2); Carbon Dioxide 19 mmol/L (22-30); Chloride 116 mmol/L (98-107); Glucose 125 mg/dL (74-99); Potassium 4.3 mmol/L (3.5-5.1); Sodium 141 mmol/L (137-145); Total Bilirubin 0.4 mg/dL (0.2-1.3); Total Protein 5.6 g/dL (6.3-8.2)
[2018-09-01] MEDS: DOXYCYCLINE 100 MG in SODIUM CHLORIDE 0.9% 100 ML IVPB SCH (08:49)
[2018-09-01] MEDS: MEGESTROL 400 MG/10 ML CUP PO SCH (08:49)
[2018-09-01] MEDS: METOPROLOL TARTRATE 12.5 MG TAB PO SCH (08:49)
[2018-09-01] MEDS: APIXABAN 5 MG TAB PO SCH (08:49)
[2018-09-01] MEDS: PANTOPRAZOLE 40 MG TABLET PO SCH (08:49)
[2018-09-01 08:51] LABS: Anisocytosis Slight; Basophils % (A) 0 %; Eosinophils % (A) 0 %; HGB 7.3 gm/dL (11.4-16.0); Hypochromasia Marked; Lymphocytes # (A) 0.6 k/uL (1.0-4.8); Lymphocytes % (A) 6 %; MCH 27.5 pg (25.0-35.0); MCHC 31.7 g/dL (31.0-37.0); MCV 86.8 fL (80.0-100.0); Mean Platelet Volume 8.5; Monocytes # (A) 0.2 k/uL (0-1.0); Monocytes % (A) 2 %; Neutrophils # (A) 9.5 k/uL (1.3-7.7); Neutrophils % (A) 91 %; Platelet Count 245 k/uL (150-450); Poikilocytosis Moderate; RBC 2.66 m/uL (3.80-5.40); RDW 19.8 % (11.5-15.5); WBC 10.4 k/uL (3.8-10.6)
[2018-09-01 12:03] VITALS: BP 105/68; PULSE 82; RESP 17
[2018-09-01] MEDS: FOLIC ACID 1 MG TAB PO SCH (12:29)
--- NOTE | 2018-09-01 13:30 | P.PN ---
Subjective Progress Note Date: 08/31/18 Principal diagnosis: Metastatic Cancer Patient hospitalized with a combination of dehydration, vision changes, and dysphagia. Patient recently completed radiation to the head and neck region for malignancy. We were consulted for Port-A-Cath placement. It appears the patient's anticoagulation has been held. Patient with poor IV access. Patient requiring ongoing chemotherapy. Objective - Vital Signs Vital signs: Vital Signs Temp 98.3 F 08/31/18 05:00 Pulse 113 H 08/31/18 05:00 Resp 22 08/31/18 05:00 BP 134/86 08/31/18 05:00 Pulse Ox 94 L 08/31/18 05:00 Intake & Output 08/30/18 08/31/18 08/31/18 18:59 06:59 18:59 Intake Total 1245 1675.88 Output Total 2 Balance 1243 1675.88 Intake: IV 400 Intake, IV Titration 825 1085.88 Amount Cefepime 2 gm In Sodium 200 Chloride 0.9% 100 ml @ 200 mls/hr IVPB Q8H [facility] Rx#:[id number] Doxycycline 100 mg In 100 100 Sodium Chloride 0.9% 100 ml @ 100 mls/hr IVPB Q12HR [facility] Rx#:[id number] Heparin Sod,Pork in 0.45% 110.88 NaCl 25,000 unit In 0.45 % NaCl 1 250ml.bag @ 18 UNITS/KG/HR 13.308 mls/hr IV .[id number] [facility]INA Rx#: [id number] Sodium Chloride 0.9% 1, 600 675 000 ml @ 75 mls/hr IV . [id number] [facility]INA Rx#:[id number] Vancomycin 1,250 mg In 125 Sodium Chloride 0.9% 250 ml @ 125 mls/hr IVPB Q8H NAINA Rx#:[id number] Oral 20 590 Output: Estimated Blood Loss 2 Other: Voiding Method Bedside Commode Bedside Commode # Voids 1 3 # Bowel Movements 1 - Exam General: Well-developed, well-nourished HEENT: Normocephalic, sclerae nonicteric, radiation skin changes lower neck Abdomen: Nontender, nondistended Extremities: No edema Neuro: Alert and oriented - Labs CBC & Chem 7: 09/01/18 06:45 09/01/18 06:45 Labs: Abnormal Lab Results - Last 24 Hours (Table) 08/30/18 08/31/18 Range/Units 19:58 03:00 APTT >200.0 H* (22.0-30.0) sec Chloride 114 H (98-107) mmol/L Carbon Dioxide 18 L (22-30) mmol/L BUN 4 L (7-17) mg/dL Creatinine 0.46 L (0.52-1.04) mg/dL Glucose 69 L (74-99) mg/dL Microbiology - Last 24 Hours (Table) 08/28/18 16:00 Blood Culture - Preliminary Blood No Growth after 48 hours Assessment and Plan Plan: - Healthcare care associated pneumonia in the left lower lobe - 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 Blood cultures have been negative so far. We will DC the vancomycin and continue cefepime and doxycycline for now. Slow taper depending upon the patient's condition - Patient is getting a Mediport placement today for possible chemotherapy - Started on Megace we'll see how she does - Continue IV fluids - Patient has been started on heparin as she has a history of recent PE. Her glucose was held during the last admission and she was having vaginal bleeding. We'll monitor for any bleeding while on heparin - We'll continue to follow the patient up Time with Patient: Greater than 30
--- NOTE | 2018-09-01 16:31 | P.PN ---
Subjective Tolerated Chemotherapy well No N/V, ambulated well, no SOB, pain well controlled Objective - Vital Signs Vital signs: Vital Signs Temp 97.8 F 09/01/18 12:03 Pulse 82 09/01/18 15:08 Resp 17 09/01/18 15:08 BP 105/68 09/01/18 12:03 Pulse Ox 96 09/01/18 12:03 Intake & Output 08/31/18 09/01/18 09/01/18 18:59 06:59 18:59 Intake Total 800.536 6656 360 Output Total 350 Balance 132.475 1963 360 Weight 73.936 kg Intake: Intake, IV Titration 110.511 850 Amount Cefepime 2 gm In Sodium 100 Chloride 0.9% 100 ml @ 200 mls/hr IVPB Q8H [facility] Rx#:[id number] Doxycycline 100 mg In 100 Sodium Chloride 0.9% 100 ml @ 100 mls/hr IVPB Q12HR [facility] Rx#:[id number] Heparin Sod,Pork in 0.45% 110.511 NaCl 25,000 unit In 0.45 % NaCl 1 250ml.bag @ 18 UNITS/KG/HR 13.308 mls/hr IV .[id number] NAINA Rx#: [id number] Sodium Chloride 0.9% 1, 650 000 ml @ 75 mls/hr IV . [id number] [facility]INA Rx#:[id number] Oral 720 590 360 Output: Urine 350 Other: Voiding Method Bedside Commode Bedside Commode Bedside Commode # Voids 4 2 2 # Bowel Movements 1 - Constitutional General appearance: Present: no acute distress - EENT Eyes: Present: EOMI, PERRLA Ears: bilateral: normal - Neck Neck: Present: normal ROM Carotids: negative: upstroke normal Thyroid: bilateral: normal size - Respiratory Respiratory: negative: diminished, wheezing - Cardiovascular Rhythm: regular Heart sounds: normal: S1, S2 - Gastrointestinal General gastrointestinal: Present: soft - Neurologic Neurologic: Present: CNII-XII intact - Psychiatric Psychiatric: Present: A&O x's 3 - Labs CBC & Chem 7: 09/01/18 06:45 09/01/18 06:45 Labs: Abnormal Lab Results - Last 24 Hours (Table) 09/01/18 09/01/18 09/01/18 Range/Units 06:45 06:45 06:45 RBC 2.66 L (3.80-5.40) m/uL Hgb 7.3 L (11.4-16.0) gm/dL Hct 23.0 L (34.0-46.0) % RDW 19.8 H (11.5-15.5) % Neutrophils # 9.5 H (1.3-7.7) k/uL Lymphocytes # 0.6 L (1.0-4.8) k/uL PT 12.9 H (9.0-12.0) sec INR 1.2 H (<1.2) Chloride 116 H (98-107) mmol/L Carbon Dioxide 19 L (22-30) mmol/L Creatinine 0.47 L (0.52-1.04) mg/dL Glucose 125 H (74-99) mg/dL AST 12 L (14-36) U/L Total Protein 5.6 L (6.3-8.2) g/dL Albumin 2.3 L (3.5-5.0) g/dL Microbiology - Last 24 Hours (Table) 08/28/18 16:00 Blood Culture - Preliminary Blood No Growth after 72 hours Assessment and Plan (1) Metastatic lung cancer (metastasis from lung to other site) Current Visit: Yes Status: Acute Priority: High Code(s): C34.90 - MALIGNANT NEOPLASM OF UNSP PART OF UNSP BRONCHUS OR LUNG SNOMED Code(s): 18537567 (2) Dehydration Narrative/Plan: Resolved Current Visit: Yes Status: Acute Code(s): E86.0 - DEHYDRATION SNOMED Code(s): 47772518 (3) Abdominal pain Current Visit: No Status: Acute Code(s): R10.9 - UNSPECIFIED ABDOMINAL PAIN SNOMED Code(s): 27804404 Plan: 1- Reviewed lab results with pateint/daughter 2- Ok to Discharge from Oncology stand point 3- Follow up in office in 1 week D/W patient/daughter > answered all questions/concerns
--- NOTE | 2018-09-01 19:17 | P.DS ---
Providers Date of admission: 08/28/18 16:51 Expected date of discharge: 09/01/18 Attending physician: Angel Zuleta Consults: 08/28/18 16:52 Consult Physician Routine Consulting Provider: Miguel Fatima Consult Reason/Comments: Dehydration, leukocytosis, healthcare associated pneumonia Do you want consulting provider notified?: Yes 08/29/18 15:10 Consult Physician Routine Consulting Provider: Parag Paul Consult Reason/Comments: mediport for chemotherapy Do you want consulting provider notified?: Yes Primary care physician: [facility] Hospital Course: Patient hospitalized with a combination of dehydration, vision changes, and dysphagia. Patient recently completed radiation to the head and neck region for malignancy. We were consulted for Port-A-Cath placement. It appears the patient's anticoagulation has been held. Patient with poor IV access. Patient requiring ongoing chemotherapy. Patient was treated with IV antibiotics for pneumonia and, instead chemotherapy which he tolerated well; patient is cleared for discharge from oncology; she remained stable and was discharged on oral doxycycline and the plan to follow-up with PCP Patient Condition at Discharge: Stable Plan - Discharge Summary Discharge Rx Participant: Yes New Discharge Prescriptions: New Atorvastatin [Lipitor] 80 mg PO HS tab Metoprolol Tartrate [Lopressor] 12.5 mg PO BID tab Megestrol [Megace] 400 mg PO DAILY #30 cup Acetaminophen Tab [Tylenol] 650 mg PO Q6HR PRN tab PRN Reason: Mild Pain Or Fever > 100.5 Doxycycline [Vibramycin] 100 mg PO BID 7 Days #14 cap Continue Atorvastatin [Lipitor] 80 mg PO DAILY oxyCODONE-APAP 10-325MG [Percocet 10-325 mg] 1 tab PO Q4HR PRN PRN Reason: Pain Metoprolol Tartrate [Lopressor] 12.5 mg PO BID #60 tab Pantoprazole Sodium [Protonix] 40 mg PO DAILY #30 tablet. Cefuroxime Axetil [Ceftin] 500 mg PO BID 3 Days #14 tab Acetaminophen Tab [Tylenol] 500 mg PO Q6H PRN #30 tablet PRN Reason: Pain Folic Acid 1 mg PO DAILY #30 tab Apixaban [Eliquis Starter Pack (for VTE)] 5 mg PO DIRECTED Ondansetron [Zofran ODT] 4 mg PO Q8HR Discharge Medication List Atorvastatin [Lipitor] 80 mg PO DAILY 10/21/13 [History] oxyCODONE-APAP 10-325MG [Percocet 10-325 mg] 1 tab PO Q4HR PRN 07/29/18 [History] Acetaminophen Tab [Tylenol] 500 mg PO Q6H PRN #30 tablet 08/24/18 [Rx] Cefuroxime Axetil [Ceftin] 500 mg PO BID 3 Days #14 tab 08/24/18 [Rx] Folic Acid 1 mg PO DAILY #30 tab 08/24/18 [Rx] Metoprolol Tartrate [Lopressor] 12.5 mg PO BID #60 tab 08/24/18 [Rx] Pantoprazole Sodium [Protonix] 40 mg PO DAILY #30 tablet.dr 08/24/18 [Rx] Apixaban [Eliquis Starter Pack (for VTE)] 5 mg PO DIRECTED 08/30/18 [History] Ondansetron [Zofran ODT] 4 mg PO Q8HR 08/30/18 [History] Acetaminophen Tab [Tylenol] 650 mg PO Q6HR PRN tab 09/01/18 [Rx] Atorvastatin [Lipitor] 80 mg PO HS tab 09/01/18 [Rx] Doxycycline [Vibramycin] 100 mg PO BID 7 Days #14 cap 09/01/18 [Rx] Megestrol [Megace] 400 mg PO DAILY #30 cup 09/01/18 [Rx] Metoprolol Tartrate [Lopressor] 12.5 mg PO BID tab 09/01/18 [Rx] Follow up Appointment(s)/Referral(s): Parag Paul MD [Medical Doctor] - 1 Week [facility], [NON-STAFF] - 1 Week Latisha Ziegler MD [Primary Care Provider] - 1-2 days Patient Instructions/Handouts: Doxycycline (By mouth), Megestrol Acetate (By mouth), Lung Cancer (DC) Activity/Diet/Wound Care/Special Instructions: diet as tolerated limit activity until seen by dr darnell on Monday to schedule Dr's appointments Discharge Disposition: HOME SELF-CARE
== END 2018-09-01 19:00 | disposition home or self-care (01) | DRG 180 ==
LOC: EC 14:56 → 3NMEDONC 16:51
PROVIDERS: ADMIT Internal Medicine; ATTEND Internal Medicine
PROC: 02HV33Z Insertion of Infusion Device into Superior Vena Cava, Percutaneous Approach (ICD-10-PCS; 2018-08-30)
PROC: 0JH60XZ Insertion of Tunneled Vascular Access Device into Chest Subcutaneous Tissue and Fascia, Open Approach (ICD-10-PCS; principal; 2018-08-30 18:00)
PROC: 05HF33Z Insertion of Infusion Device into Left Cephalic Vein, Percutaneous Approach (ICD-10-PCS; 2018-08-31)
PROC: 3E04305 Introduction of Other Antineoplastic into Central Vein, Percutaneous Approach (ICD-10-PCS; 2018-08-31)
DX: C34.31 Malignant neoplasm of lower lobe, right bronchus or lung (principal); J18.1 Lobar pneumonia, unspecified organism; R18.0 Malignant ascites; C78.7 Secondary malignant neoplasm of liver and intrahepatic bile duct; C79.62 Secondary malignant neoplasm of left ovary; C79.61 Secondary malignant neoplasm of right ovary; B37.0 Candidal stomatitis; L02.419 Cutaneous abscess of limb, unspecified; R13.10 Dysphagia, unspecified; C32.9 Malignant neoplasm of larynx, unspecified; E86.0 Dehydration; K21.9 Gastro-esophageal reflux disease without esophagitis; I10 Essential (primary) hypertension; E78.5 Hyperlipidemia, unspecified; F41.0 Panic disorder [episodic paroxysmal anxiety]; K59.00 Constipation, unspecified; G89.29 Other chronic pain; D50.0 Iron deficiency anemia secondary to blood loss (chronic); D63.0 Anemia in neoplastic disease; N93.9 Abnormal uterine and vaginal bleeding, unspecified; I25.2 Old myocardial infarction; Y95 Nosocomial condition; Z92.3 Personal history of irradiation; Z71.3 Dietary counseling and surveillance; Z79.02 Long term (current) use of antithrombotics/antiplatelets; Z79.899 Other long term (current) drug therapy; Z90.2 Acquired absence of lung [part of]; Z92.21 Personal history of antineoplastic chemotherapy; Z87.891 Personal history of nicotine dependence; Z86.711 Personal history of pulmonary embolism; Z88.0 Allergy status to penicillin; Z80.9 Family history of malignant neoplasm, unspecified
CPT/HCPCS: 36410; 36415; 70553; 71046; 76937; 77001; 80048; 80053; 80202; 81001; 81025; 83605; 83615; 83735; 84484; 85025; 85610; 85730; 87040; 87086; 93005; 94760; 96361; 96365; 96366; 96368; 99285

== ENCOUNTER 2018-09-04 15:44 | Inpatient (IN) | payer OTHER ==
[2018-09-04] MEDS ORDERED: SODIUM CHLORIDE 0.9% 1,000 ML IV STA (16:11)
--- NOTE | 2018-09-04 16:12 | ED ---
Dizziness HPI - General Chief Complaint: Dizziness Stated Complaint: Dizziness Time Seen by Provider: 09/04/18 16:10 Source: EMS, RN notes reviewed, old records reviewed Mode of arrival: EMS Limitations: no limitations - History of Present Illness Initial Comments: This is a 52-year-old female the ER for evaluation. Patient resents today for evaluation of weakness and dizziness. Not feeling well, currently going through chemotherapy for lung C8 with metastasis. Patient denies shortness of breath no chest pain. Patient denies headache. No significant neurological complaints. Patient states she just admitted to the hospital 2 days ago and discharged home, since she went home. Diminished appetite decreased oral intake decreased fluid intake. Patient states her increase weakness has significantly progressed MD Complaint: dizziness, lightheadedness, difficulty walking -: days(s) Timing: gradual onset Description: lightheadedness, difficulty walking, nausea History of Same: Yes History of Trauma: No Severity: moderate Improves With: rehydration Worsens With: nothing Associated Symptoms: denies other symptoms - Related Data Home Medications Medication Instructions Recorded Confirmed oxyCODONE-APAP 10-325MG [Percocet 1 tab PO Q4HR PRN 07/29/18 09/04/18 10-325 mg] Apixaban [Eliquis Starter Pack 5 mg PO DIRECTED 08/30/18 09/04/18 (for VTE)] Ondansetron [Zofran ODT] 4 mg PO Q8HR 08/30/18 09/04/18 Previous Rx's Medication Instructions Recorded Acetaminophen Tab [Tylenol] 500 mg PO Q6H PRN #30 tablet 08/24/18 Cefuroxime Axetil [Ceftin] 500 mg PO BID 3 Days #14 tab 08/24/18 Folic Acid 1 mg PO DAILY #30 tab 08/24/18 Metoprolol Tartrate [Lopressor] 12.5 mg PO BID #60 tab 08/24/18 Pantoprazole Sodium [Protonix] 40 mg PO DAILY #30 tablet. 08/24/18 Acetaminophen Tab [Tylenol] 650 mg PO Q6HR PRN tab 09/01/18 Atorvastatin [Lipitor] 80 mg PO HS tab 09/01/18 Doxycycline [Vibramycin] 100 mg PO BID 7 Days #14 cap 09/01/18 Megestrol [Megace] 400 mg PO DAILY #30 cup 04/20/19 Metoprolol Tartrate [Lopressor] 12.5 mg PO BID tab 09/01/18 Allergies Allergy/AdvReac Type Severity Reaction Status Date / Time Penicillins Allergy Unknown Verified 09/04/18 17:13 Childhood Review of Systems ROS Statement: Those systems with pertinent positive or pertinent negative responses have been documented in the HPI. ROS Other: All systems not noted in ROS Statement are negative. Past Medical History Past Medical History: Cancer, GERD/Reflux, Hyperlipidemia, Hypertension, Myocardial Infarction ([place]) Additional Past Medical History / Comment(s): BRAIN ANEURSYM, [place] 2012, LUNG CA diagnosed 2014, CARPAL TUNNEL RIGHT WRIST, throat CA dx apr 2018 Last Myocardial Infarction Date:: 04/30/2013 History of Any Multi-Drug Resistant Organisms: None Reported Past Surgical History: Heart Catheterization, Orthopedic Surgery, Tubal Ligation, Uterine Ablation Additional Past Surgical History / Comment(s): ANGIOPLASTY FOR BRAIN ANEURSYM, CARPEL TUNNEL RIGHT WRIST , and laparoscopy, PARTIAL RIGHT LUNG REMOVAL ,PTCA, Past Anesthesia/Blood Transfusion Reactions: No Reported Reaction Past Psychological History: Anxiety, Panic Disorder Smoking Status: Former smoker Past Alcohol Use History: None Reported Past Drug Use History: None Reported - Past Family History Mother Family Medical History: Cancer Father Family Medical History: Cancer General Exam Limitations: no limitations General appearance: alert, in no apparent distress Head exam: Present: atraumatic, normocephalic, normal inspection Eye exam: Present: normal appearance, PERRL, EOMI. Absent: scleral icterus, conjunctival injection, periorbital swelling ENT exam: Present: normal exam, mucous membranes dry Neck exam: Present: normal inspection. Absent: tenderness, meningismus, lymp hadenopathy Respiratory exam: Present: normal lung sounds bilaterally. Absent: respiratory distress, wheezes, rales, rhonchi, stridor Cardiovascular Exam: Present: normal rhythm, tachycardia, normal heart sounds. Absent: systolic murmur, diastolic murmur, rubs, gallop, clicks GI/Abdominal exam: Present: soft, normal bowel sounds. Absent: distended, tenderness, guarding, rebound, rigid Extremities exam: Present: normal inspection, full ROM, normal capillary refill. Absent: tenderness, pedal edema, joint swelling, calf tenderness Back exam: Present: normal inspection Neurological exam: Present: alert, oriented X3, CN II-XII intact Psychiatric exam: Present: normal affect, normal mood Skin exam: Present: warm, dry, intact, normal color. Absent: rash Course Vital Signs 09/04/18 15:46 Temperature 99 F Pulse Rate 104 H Respiratory 18 Rate Blood Pressure 132/80 O2 Sat by Pulse 100 Oximetry - Reevaluation(s) Reevaluation #1: 09/04/18 17:29 Medical records reviewed Reevaluation #2: 09/04/18 17:29 Patient does feel improved with hydration EKG Findings - EKG Comments: EKG Findings:: EKG shows normal sinus rhythm rate of 91, DE 120, QRS 84, QTc 437 Medical Decision Making - Medical Decision Making 52-year-old female the ER for evaluation of weakness and dizziness, known lung CA with metastases. Significant weakness. We'll admit for IV hydration - Lab Data Result diagrams: 09/04/18 16:15 09/04/18 16:15 Lab Results 09/04/18 09/04/18 09/04/18 Range/Units 16:15 16:15 16:15 WBC 7.0 (3.8-10.6) k/uL RBC 3.34 L (3.80-5.40) m/uL Hgb 8.8 L D (11.4-16.0) gm/dL Hct 28.2 L (34.0-46.0) % MCV 84.2 (80.0-100.0) fL MCH 26.3 (25.0-35.0) pg MCHC 31.3 (31.0-37.0) g/dL RDW 18.7 H (11.5-15.5) % Plt Count 166 (150-450) k/uL Neutrophils % 89 % Lymphocytes % 7 % Monocytes % 1 % Eosinophils % 2 % Basophils % 0 % Neutrophils # 6.3 (1.3-7.7) k/uL Lymphocytes # 0.5 L (1.0-4.8) k/uL Monocytes # 0.1 (0-1.0) k/uL Eosinophils # 0.1 (0-0.7) k/uL Basophils # 0.0 (0-0.2) k/uL Hypochromasia Moderate Poikilocytosis Slight Anisocytosis Slight PT (9.0-12.0) sec INR (<1.2) APTT (22.0-30.0) sec Sodium 135 L (137-145) mmol/L Potassium 3.9 (3.5-5.1) mmol/L Chloride 108 H (98-107) mmol/L Carbon Dioxide 21 L (22-30) mmol/L Anion Gap 6 mmol/L BUN 8 (7-17) mg/dL Creatinine 0.42 L (0.52-1.04) mg/dL Est GFR (CKD-EPI)AfAm >90 (>60 ml/min/1.73 sqM) Est GFR (CKD-EPI)NonAf >90 (>60 ml/min/1.73 sqM) Glucose 110 H (74-99) mg/dL Plasma Lactic Acid Chase 0.9 (0.7-2.0) mmol/L Calcium 9.0 (8.4-10.2) mg/dL Phosphorus 3.1 (2.5-4.5) mg/dL Magnesium 1.5 L (1.6-2.3) mg/dL Total Bilirubin 0.5 (0.2-1.3) mg/dL AST 30 (14-36) U/L ALT 34 (9-52) U/L Alkaline Phosphatase 101 (38-126) U/L Troponin I (0.000-0.034) ng/mL Total Protein 6.0 L (6.3-8.2) g/dL Albumin 2.7 L (3.5-5.0) g/dL TSH 1.320 (0.465-4.680) mIU/L Urine Color Urine Appearance (Clear) Urine pH (5.0-8.0) Ur Specific [place] (1.001-1.035) Urine Protein (Negative) Urine Glucose (UA) (Negative) Urine Ketones (Negative) Urine Blood (Negative) Urine Nitrite (Negative) Urine Bilirubin (Negative) Urine Urobilinogen (<2.0) mg/dL Ur Leukocyte Esterase (Negative) Urine WBC (0-5) /hpf Ur Squamous Epith Cells (0-4) /hpf Urine Mucus (None) /hpf 09/04/18 09/04/18 09/04/18 Range/Units 16:15 16:15 17:32 WBC (3.8-10.6) k/uL RBC (3.80-5.40) m/uL Hgb (11.4-16.0) gm/dL Hct (34.0-46.0) % MCV (80.0-100.0) fL MCH (25.0-35.0) pg MCHC (31.0-37.0) g/dL RDW (11.5-15.5) % Plt Count (150-450) k/uL Neutrophils % % Lymphocytes % % Monocytes % % Eosinophils % % Basophils % % Neutrophils # (1.3-7.7) k/uL Lymphocytes # (1.0-4.8) k/uL Monocytes # (0-1.0) k/uL Eosinophils # (0-0.7) k/uL Basophils # (0-0.2) k/uL Hypochromasia Poikilocytosis Anisocytosis PT 11.8 (9.0-12.0) sec INR 1.1 (<1.2) APTT 25.1 (22.0-30.0) sec Sodium (137-145) mmol/L Potassium (3.5-5.1) mmol/L Chloride (98-107) mmol/L Carbon Dioxide (22-30) mmol/L Anion Gap mmol/L BUN (7-17) mg/dL Creatinine (0.52-1.04) mg/dL Est GFR (CKD-EPI)AfAm (>60 ml/min/1.73 sqM) Est GFR (CKD-EPI)NonAf (>60 ml/min/1.73 sqM) Glucose (74-99) mg/dL Plasma Lactic Acid Chase (0.7-2.0) mmol/L Calcium (8.4-10.2) mg/dL Phosphorus (2.5-4.5) mg/dL Magnesium (1.6-2.3) mg/dL Total Bilirubin (0.2-1.3) mg/dL AST (14-36) U/L ALT (9-52) U/L Alkaline Phosphatase (38-126) U/L Troponin I <0.012 (0.000-0.034) ng/mL Total Protein (6.3-8.2) g/dL Albumin (3.5-5.0) g/dL TSH (0.465-4.680) mIU/L Urine Color Yellow Urine Appearance Clear (Clear) Urine pH 6.5 (5.0-8.0) Ur Specific [place] 1.017 (1.001-1.035) Urine Protein 1+ H (Negative) Urine Glucose (UA) Negative (Negative) Urine Ketones Negative (Negative) Urine Blood Negative (Negative) Urine Nitrite Negative (Negative) Urine Bilirubin Negative (Negative) Urine Urobilinogen <2.0 (<2.0) mg/dL Ur Leukocyte Esterase Negative (Negative) Urine WBC 5 (0-5) /hpf Ur Squamous Epith Cells 3 (0-4) /hpf Urine Mucus Rare H (None) /hpf Disposition Clinical Impression: Generalized weakness, Malignant ascites, Dehydration Disposition: ADMITTED IP TO THIS HOSP Condition: Fair Is patient prescribed a controlled substance at d/c from ED?: No Referrals: Latisha Ziegler MD [Primary Care Provider] - 1-2 days
[2018-09-04 16:40] LABS: Anisocytosis Slight; Basophils % (A) 0 %; Eosinophils # (A) 0.1 k/uL (0-0.7); Eosinophils % (A) 2 %; HCT 28.2 % (34.0-46.0); Hypochromasia Moderate; Lymphocytes # (A) 0.5 k/uL (1.0-4.8); Lymphocytes % (A) 7 %; MCH 26.3 pg (25.0-35.0); MCHC 31.3 g/dL (31.0-37.0); MCV 84.2 fL (80.0-100.0); Monocytes # (A) 0.1 k/uL (0-1.0); Monocytes % (A) 1 %; Neutrophils # (A) 6.3 k/uL (1.3-7.7); Neutrophils % (A) 89 %; Platelet Count 166 k/uL (150-450); Poikilocytosis Slight; RBC 3.34 m/uL (3.80-5.40); RDW 18.7 % (11.5-15.5)
[2018-09-04 16:42] LABS: HGB 8.8 gm/dL (11.4-16.0)
[2018-09-04 16:46] LABS: ALT 34 U/L (9-52); AST 30 U/L (14-36); Albumin 2.7 g/dL (3.5-5.0); Alkaline Phosphatase 101 U/L (38-126); Anion Gap 6 mmol/L; Blood Urea Nitrogen 8 mg/dL (7-17); Carbon Dioxide 21 mmol/L (22-30); Chloride 108 mmol/L (98-107); Glucose 110 mg/dL (74-99); Magnesium 1.5 mg/dL (1.6-2.3); Phosphorus 3.1 mg/dL (2.5-4.5); Potassium 3.9 mmol/L (3.5-5.1); Sodium 135 mmol/L (137-145); Total Bilirubin 0.5 mg/dL (0.2-1.3)
[2018-09-04 16:50] LABS: INR 1.1 (<1.2); Partial Thromboplastin Time 25.1 sec (22.0-30.0); Prothrombin Time 11.8 sec (9.0-12.0)
--- NOTE | 2018-09-04 16:54 | CT ---
EXAMINATION: CT brain wo con DATE AND TIME: 09/04/2018 4:48 PM CLINICAL INDICATION: PHH; weakness TECHNIQUE: Standard departmental protocol.; 1099.4; COMPARISON: None. FINDINGS: The calvarium is intact. There is no intracranial hemorrhage. There is no intracranial mass or mass effect. No definite new intra-axial or extra-axial attenuation defect. The paranasal sinuses, middle ear cavities, and mastoid sinus air cells are clear. The orbits are unremarkable. IMPRESSION: NO ACUTE PROCESS.
[2018-09-04 17:56] LABS: Appearance,Urine Clear (Clear); Bilirubin,Urine Negative (Negative); Blood,Urine Negative (Negative); Color,Urine Yellow; Glucose,Urine (UA) Negative (Negative); Ketones,Urine Negative (Negative); Leukocyte Esterase,Urine Negative (Negative); Mucus,Urine Rare /hpf; Nitrite,Urine Negative (Negative); PH, Urine 6.5 (5.0-8.0); Protein,Urine 1+ (Negative); Specific Gravity,Urine 1.017 (1.001-1.035); Squamous Epithelial Cell,Urine 3 /hpf (0-4); Urobilinogen,Urine <2.0 mg/dL (<2.0); WBC,Urine 5 /hpf (0-5)
[2018-09-04] MEDS ORDERED: SODIUM CHLORIDE 0.9% 1,000 ML IV ONE (18:37)
[2018-09-04] MEDS ORDERED: HYDROmorphone 0.5 MG/0.5 ML SYRINGE IVP STA (19:59)
[2018-09-04] MEDS: oxyCODONE-APAP 10-325MG 1 EACH TAB PO PRN (23:01)
[2018-09-04] MEDS: DOXYCYCLINE 100 MG CAP PO SCH (23:04)
[2018-09-05] MEDS: DOXYCYCLINE 100 MG CAP PO SCH ×2 (08:44→21:37)
[2018-09-05] MEDS: oxyCODONE-APAP 10-325MG 1 EACH TAB PO PRN (08:46)
[2018-09-05] MEDS ORDERED: APIXABAN 5 MG PO SCH (11:45)
[2018-09-05] MEDS ORDERED: ACETAMINOPHEN TAB 325 MG TAB PO PRN (11:45)
--- NOTE | 2018-09-05 11:58 | P.HPIM ---
History of Present Illness This is a pleasant 52 years old female with past medical history of hyperlipidemia, hypertension, GERD, coronary artery disease status post cardiac cath, metastatic right lung cancer on chemotherapy, with liver metastases. She was recently discharged from the hospital earlier this month. Now she comes with generalized weakness, chronic lower abdominal pain for which she was taken Jackson 10-325 milligrams, besides she recently got chemotherapy about 5 days ago. This time she presents with generalized weakness and loss of appetite for about one month which get worse after she got the chemotherapy. Also patient she feels that the pain medicine makes her more sleepy and she takes only half of Jackson 10-325 mg for this reason, she states that Dilaudid helps her a lot better than Jackson and she wants to switch her pain medicine from Jackson to Dilaudid. She has some epigastric discomfort but thus related to when she takes antiacids. Patient says that she has history of PE and she is on Eliquis Vitas looks stable. Patient is afebrile. She is saturating 100% on room air. On admission her CBC shows WBC of 7K, hemoglobin 8.8,, platelets 166. INR 1.1, sodium 135. Creatinine 0.4. Urinalysis is not suspicious of infection. EKG showing normal sinus rhythm at [address]-T changes. Brain CT: No acute event as per radiologist. Review of Systems CONSTITUTIONAL: No fever, no malaise, no fatigue. HEENT: No recent visual problems or hearing problems. Denied any sore throat. CARDIOVASCULAR: No orthopnea, PND, no palpitations, no syncope. PULMONARY: No shortness of breath, no cough, no hemoptysis. GASTROINTESTINAL: No diarrhea, no nausea, no vomiting, no abdominal pain. Normoactive bowel sounds. NEUROLOGICAL: No headaches, no weakness, no numbness. HEMATOLOGICAL: Denies any bleeding or petechiae. GENITOURINARY: Denies any burning micturition, frequency, or urgency. MUSCULOSKELETAL/RHEUMATOLOGICAL: Denies any joint pain, swelling, or any muscle pain. ENDOCRINE: Denies any polyuria or polydipsia. Past Medical History Past Medical History: Cancer, GERD/Reflux, Hyperlipidemia, Hypertension, Myocardial Infarction ([place]) Additional Past Medical History / Comment(s): BRAIN ANEURSYM, [place] 2012, LUNG CA diagnosed 2014, CARPAL TUNNEL RIGHT WRIST, throat CA dx apr 2018 Last Myocardial Infarction Date:: 04/30/2013 History of Any Multi-Drug Resistant Organisms: None Reported Past Surgical History: Heart Catheterization, Orthopedic Surgery, Tubal Ligation, Uterine Ablation Additional Past Surgical History / Comment(s): ANGIOPLASTY FOR BRAIN ANEURSYM, CARPEL TUNNEL RIGHT WRIST , and laparoscopy, PARTIAL RIGHT LUNG REMOVAL ,PTCA, Past Anesthesia/Blood Transfusion Reactions: No Reported Reaction Past Psychological History: Anxiety, Panic Disorder Smoking Status: Former smoker Past Alcohol Use History: None Reported Additional Past Alcohol Use History / Comment(s): Patient was a smoker and quit in April 2018. She denies any marijuana, illicit drug use or alcohol use. Her daughter is living with her. She is on disability. Past Drug Use History: None Reported - Past Family History Mother Family Medical History: Cancer Father Family Medical History: Cancer Medications and Allergies Home Medications Medication Instructions Recorded Confirmed Type oxyCODONE-APAP 10-325MG [Percocet 1 tab PO Q4HR PRN 07/29/18 09/04/18 History 10-325 mg] Acetaminophen Tab [Tylenol] 500 mg PO Q6H PRN #30 tablet 08/24/18 09/04/18 Rx Cefuroxime Axetil [Ceftin] 500 mg PO BID 3 Days #14 tab 08/24/18 09/04/18 Rx Folic Acid 1 mg PO DAILY #30 tab 08/24/18 09/04/18 Rx Metoprolol Tartrate [Lopressor] 12.5 mg PO BID #60 tab 08/24/18 09/04/18 Rx Pantoprazole Sodium [Protonix] 40 mg PO DAILY #30 tablet. 08/24/18 09/04/18 Rx Apixaban [Eliquis Starter Pack 5 mg PO DIRECTED 08/30/18 09/04/18 History (for VTE)] Ondansetron [Zofran ODT] 4 mg PO Q8HR 08/30/18 09/04/18 History Acetaminophen Tab [Tylenol] 650 mg PO Q6HR PRN tab 09/01/18 09/04/18 Rx Atorvastatin [Lipitor] 80 mg PO HS tab 09/01/18 09/04/18 Rx Doxycycline [Vibramycin] 100 mg PO BID 7 Days #14 cap 09/01/18 09/04/18 Rx Megestrol [Megace] 400 mg PO DAILY #30 cup 09/01/18 09/04/18 Rx Metoprolol Tartrate [Lopressor] 12.5 mg PO BID tab 09/01/18 09/04/18 Rx Allergies Allergy/AdvReac Type Severity Reaction Status Date / Time Penicillins Allergy Unknown Verified 09/04/18 17:13 Childhood Physical Exam Vitals: Vital Signs Temp Pulse Pulse Resp BP BP Pulse Ox 09/05/18 05:25 98.5 F 96 22 122/81 100 09/04/18 21:00 98.2 F 90 22 126/84 98 09/04/18 20:05 84 16 104/69 100 09/04/18 18:42 93 18 114/71 100 09/04/18 15:46 99 F 104 H 18 132/80 100 Intake and Output 09/04/18 09/05/18 09/05/18 22:59 06:59 14:59 Intake Total 1199 240 Balance 1199 240 Intake: Intake, IV Titration 1199 Amount Sodium Chloride 0.9% 1, 200 000 ml @ 100 mls/hr IV . Q10H ONE Rx#:[id number] Sodium Chloride 0.9% 1, 999 000 ml @ 999 mls/hr IV . Q1H1M STA Rx#:[id number] Oral 240 Other: # Voids 1 2 1 Weight 75.296 kg GENERAL: The patient is alert and oriented x3, not in any acute distress. Well developed, well nourished. HEENT: Pupils are round and equally reacting to light. EOMI. No scleral icterus. No conjunctival pallor. Normocephalic, atraumatic. No pharyngeal erythema. No thyromegaly. CARDIOVASCULAR: S1 and S2 present. No murmurs, rubs, or gallops. PULMONARY: Chest is clear to auscultation, no wheezing or crackles. -ABDOMEN: Soft, lower abdominal tenderness, mild. No rebound tenderness or guarding. nondistended, normoactive bowel sounds. No palpable organomegaly. MUSCULOSKELETAL: No joint swelling or deformity. EXTREMITIES: No cyanosis, clubbing, or pedal edema. NEUROLOGICAL: Gross neurological examination did not reveal any focal deficits. SKIN: No rashes. Results CBC & Chem 7: 09/04/18 16:15 09/04/18 16:15 Labs: Abnormal Lab Results - Last 24 Hours (Table) 09/04/18 09/04/18 09/04/18 Range/Units 16:15 16:15 17:32 RBC 3.34 L (3.80-5.40) m/uL Hgb 8.8 L D (11.4-16.0) gm/dL Hct 28.2 L (34.0-46.0) % RDW 18.7 H (11.5-15.5) % Lymphocytes # 0.5 L (1.0-4.8) k/uL Sodium 135 L (137-145) mmol/L Chloride 108 H (98-107) mmol/L Carbon Dioxide 21 L (22-30) mmol/L Creatinine 0.42 L (0.52-1.04) mg/dL Glucose 110 H (74-99) mg/dL Magnesium 1.5 L (1.6-2.3) mg/dL Total Protein 6.0 L (6.3-8.2) g/dL Albumin 2.7 L (3.5-5.0) g/dL Urine Protein 1+ H (Negative) Urine Mucus Rare H (None) /hpf Microbiology - Last 24 Hours (Table) 09/04/18 17:32 Urine Culture - Preliminary Urine,Clean Catch Thrombosis Risk Factor Assmnt - Choose All That Apply Any of the Below Risk Factors Present?: Yes Each Factor Represents 1 point: Age 41-60 years, Obesity (BMI >25) Each Risk Factor Represents 2 Points: Malignancy Thrombosis Risk Factor Assessment Total Risk Factor Score: 4 Thrombosis Risk Factor Assessment Level: Moderate Risk Assessment and Plan Assessment: Generalized weakness and dehydration metastatic lung cancer on chemotherapy Loss of appetite History of PE Hyperlipidemia Essential hypertension History of GERD History of coronary artery disease is status post cardiac cath Plan: This is a pleasant 52 years old female who presents with generalized weakness and loss of appetite, mostly related to her cancer and others factors like loss of appetite, epigastric discomfort, the tumor itself and this metastasis, deconditioning, the chemotherapy. Continue with IV hydration. Change her Jackson/Percocet to Dilaudid pills upon patient request. Call oncology consult.Labs and medication were reviewed.. Continue same treatment. Continue with symptomatic treatment. Resume home medication. Monitor lytes and vitals. DVT and GI prophylaxis. Further recommendations of the clinical course of the patient DVT prophylaxis: Eliquis GI Prophylaxis: Ppi Prognosis is guarded
[2018-09-05] MEDS: DEXTROSE 5%-0.9% NACL 1,000 ML IV SCH (13:00)
[2018-09-05 16:30] VITALS: BMI 29.4
[2018-09-05] MEDS: HYDROmorphone 2 MG TAB PO PRN (20:30)
[2018-09-05] MEDS: ATORVASTATIN 80 MG TAB PO SCH (21:37)
[2018-09-05] MEDS: APIXABAN 5 MG TAB PO SCH (21:37)
[2018-09-05] MEDS: METOPROLOL TARTRATE 12.5 MG TAB PO SCH (21:37)
[2018-09-06] MEDS: DEXTROSE 5%-0.9% NACL 1,000 ML IV SCH ×2 (00:46→17:04)
[2018-09-06] MEDS: HYDROmorphone 2 MG TAB PO PRN ×4 (01:46→23:47)
[2018-09-06 07:52] LABS: Anisocytosis Slight; Basophils % (A) 0 %; Eosinophils # (A) 0.1 k/uL (0-0.7); Eosinophils % (A) 4 %; HCT 24.7 % (34.0-46.0); HGB 7.9 gm/dL (11.4-16.0); Hypochromasia Marked; Lymphocytes # (A) 0.5 k/uL (1.0-4.8); Lymphocytes % (A) 18 %; MCH 27.1 pg (25.0-35.0); MCHC 31.9 g/dL (31.0-37.0); MCV 84.9 fL (80.0-100.0); Mean Platelet Volume 8.2; Monocytes # (A) 0.1 k/uL (0-1.0); Monocytes % (A) 3 %; Neutrophils # (A) 1.8 k/uL (1.3-7.7); Neutrophils % (A) 71 %; Platelet Count 105 k/uL (150-450); Poikilocytosis Moderate; RBC 2.91 m/uL (3.80-5.40); RDW 18.6 % (11.5-15.5); WBC 2.5 k/uL (3.8-10.6)
[2018-09-06 08:09] LABS: Anion Gap 6 mmol/L; Blood Urea Nitrogen 5 mg/dL (7-17); Calcium 9.1 mg/dL (8.4-10.2); Carbon Dioxide 19 mmol/L (22-30); Chloride 112 mmol/L (98-107); Glucose 98 mg/dL (74-99); Magnesium 1.6 mg/dL (1.6-2.3); Potassium 4.7 mmol/L (3.5-5.1); Sodium 137 mmol/L (137-145)
[2018-09-06] MEDS: ONDANSETRON 4 MG/2 ML VIAL IVP PRN ×2 (09:16→17:05)
[2018-09-06] MEDS: PANTOPRAZOLE 40 MG TABLET PO SCH (09:18)
[2018-09-06] MEDS: APIXABAN 5 MG TAB PO SCH ×2 (09:18→20:32)
[2018-09-06] MEDS: METOPROLOL TARTRATE 12.5 MG TAB PO SCH ×2 (09:19→20:32)
[2018-09-06] MEDS: DOXYCYCLINE 100 MG CAP PO SCH ×2 (09:19→20:32)
[2018-09-06] MEDS: MEGESTROL 400 MG/10 ML CUP PO SCH (09:19)
[2018-09-06] MEDS: FOLIC ACID 1 MG TAB PO SCH (09:19)
--- NOTE | 2018-09-06 19:21 | P.CONS ---
History of Present Illness - Reason for Consult Consult date: 09/06/18 Metastatic lung cancer on chemotherapy - History of Present Illness The patient is a 52-year-old -[place] a complicated past Oncologic history. She had presented in 07/28 with a right lung mass, and underwent lobectomy in 08/28 revealing adenocarcinoma of the lung. She was recommended chemotherapy at that time, but did not follow-up. She had somewhat irregular follow-up subsequently with no evidence of recurrent disease until about 07/31. Incidentally in 05/01 she was diagnosed with an early-stage laryngeal cancer that was treated with definitive radiation. In 07/31, the patient presented with pelvic mass, liver lesions, as well as omental masses. She was found to have recurrent adenocarcinoma of the lung on the sciatic fluid cytology, as well as liver biopsy. PD-1 was strongly positive. Initiation of treatment was delayed, due to admission for influenza, during which she was found to have a PE. She was started on anticoagulation with eliquis but was admitted with vaginal bleeding. This improved with supplemental anticoagulation, which was later able to resumed She was again admitted on 08/28/18, with complains of weakness, dehydration and decreased appetite. She did improve with supportive care, and received her first cycle of chemotherapy with carboplatin and Alimta on 08/31/18. She was subsequently discharged. The patient states that post discharge she was doing well at home, with no obvious evidence swallowing, and able to eat 3 meals a day. On the day of admission cessation as she started feeling weak, and apparently passed out when getting up from the sofa. She was therefore brought to the emergency room, and admitted for further management. She denied any nausea, vomiting, diarrhea, or mouth sores. Review of Systems Constitutional: Reports chronic pain, Reports fatigue, Reports poor appetite, Reports weakness Eyes: denies blurred vision, denies pain Ears: deny: decreased hearing, ear discharge, earache, tinnitus Ears, nose, mouth and throat: Reports dysphagia (Since RT - intermittent, improved), Denies headache, Denies sore throat Cardiovascular: Reports dyspnea on exertion Respiratory: Reports dyspnea Gastrointestinal: Reports abdominal pain, Reports constipation, Reports nausea Genitourinary: Reports as per HPI (vaginal bleeding - has not recurred), Denies dysuria, Denies hematuria Musculoskeletal: Reports muscle weakness Integumentary: Denies pruritus, Denies rash Neurological: Reports syncope, Reports weakness Psychiatric: Reports anxiety Endocrine: Reports fatigue, Reports weight change Hematologic/Lymphatic: Reports as per HPI Past Medical History Past Medical History: Cancer, GERD/Reflux, Hyperlipidemia, Hypertension, Myocardial Infarction ([place]) Additional Past Medical History / Comment(s): BRAIN ANEURSYM, [place] 2012, LUNG CA diagnosed 2014, CARPAL TUNNEL RIGHT WRIST, throat CA dx apr 2018 Last Myocardial Infarction Date:: 04/30/2013 History of Any Multi-Drug Resistant Organisms: None Reported Past Surgical History: Heart Catheterization, Orthopedic Surgery, Tubal Ligation, Uterine Ablation Additional Past Surgical History / Comment(s): ANGIOPLASTY FOR BRAIN ANEURSYM, CARPEL TUNNEL RIGHT WRIST , and laparoscopy, PARTIAL RIGHT LUNG REMOVAL ,PTCA, Past Anesthesia/Blood Transfusion Reactions: No Reported Reaction Past Psychological History: Anxiety, Panic Disorder Smoking Status: Former smoker Past Alcohol Use History: None Reported Additional Past Alcohol Use History / Comment(s): Patient was a smoker and quit in April 2018. She denies any marijuana, illicit drug use or alcohol use. Her daughter is living with her. She is on disability. Past Drug Use History: None Reported - Past Family History Mother Family Medical History: Cancer Father Family Medical History: Cancer Medications and Allergies Home Medications Medication Instructions Recorded Confirmed Type oxyCODONE-APAP 10-325MG [Percocet 1 tab PO Q4HR PRN 07/29/18 09/04/18 History 10-325 mg] Acetaminophen Tab [Tylenol] 500 mg PO Q6H PRN #30 tablet 08/24/18 09/04/18 Rx Cefuroxime Axetil [Ceftin] 500 mg PO BID 3 Days #14 tab 08/24/18 09/04/18 Rx Folic Acid 1 mg PO DAILY #30 tab 08/24/18 09/04/18 Rx Metoprolol Tartrate [Lopressor] 12.5 mg PO BID #60 tab 08/24/18 09/04/18 Rx Pantoprazole Sodium [Protonix] 40 mg PO DAILY #30 tablet. 08/24/18 09/04/18 Rx Apixaban [Eliquis Starter Pack 5 mg PO DIRECTED 08/30/18 09/04/18 History (for VTE)] Ondansetron [Zofran ODT] 4 mg PO Q8HR 08/30/18 09/04/18 History Acetaminophen Tab [Tylenol] 650 mg PO Q6HR PRN tab 09/01/18 09/04/18 Rx Atorvastatin [Lipitor] 80 mg PO HS tab 09/01/18 09/04/18 Rx Doxycycline [Vibramycin] 100 mg PO BID 7 Days #14 cap 09/01/18 09/04/18 Rx Megestrol [Megace] 400 mg PO DAILY #30 cup 09/01/18 09/04/18 Rx Metoprolol Tartrate [Lopressor] 12.5 mg PO BID tab 09/01/18 09/04/18 Rx Allergies Allergy/AdvReac Type Severity Reaction Status Date / Time Penicillins Allergy Unknown Verified 09/04/18 17:13 Childhood Physical Exam Vitals: Vital Signs Temp Pulse Resp BP Pulse Ox 09/06/18 16:51 16 09/06/18 13:46 16 09/06/18 12:24 97.8 F 89 16 106/66 96 09/06/18 07:35 16 09/06/18 06:25 98.7 F 103 H 16 118/78 98 09/05/18 21:56 98.3 F 89 16 135/75 98 Intake and Output 09/06/18 09/06/18 09/06/18 06:59 14:59 22:59 Intake Total 950 850 Balance 950 850 Intake: Intake, IV Titration 650 450 Amount Dextrose 5%-0.9% NaCl 1, 650 450 000 ml @ 75 mls/hr IV . [id number] NAINA Rx#:[id number] Oral 300 400 Other: Voiding Method Bedside Commode Toilet Toilet # Voids 1 2 2 # Bowel Movements 1 - Constitutional General appearance: no acute distress - EENT Eyes: EOMI, PERRLA ENT: hearing grossly normal, normal oropharynx - Neck Neck: no lymphadenopathy Thyroid: bilateral: normal size - Respiratory Respiratory: bilateral: CTA - Cardiovascular Rhythm: regular Heart sounds: normal: S1, S2 - Gastrointestinal General gastrointestinal: normal bowel sounds, soft - Integumentary Integumentary: normal - Neurologic Neurologic: CNII-XII intact - Musculoskeletal Musculoskeletal: generalized weakness, strength equal bilaterally - Psychiatric Psychiatric: A&O x's 3, appropriate affect Results CBC & Chem 7: 09/06/18 07:44 09/06/18 07:44 Labs: Abnormal Lab Results - Last 24 Hours (Table) 09/06/18 09/06/18 Range/Units 07:44 07:44 WBC 2.5 L (3.8-10.6) k/uL RBC 2.91 L (3.80-5.40) m/uL Hgb 7.9 L (11.4-16.0) gm/dL Hct 24.7 L (34.0-46.0) % RDW 18.6 H (11.5-15.5) % Plt Count 105 L (150-450) k/uL Lymphocytes # 0.5 L (1.0-4.8) k/uL Chloride 112 H (98-107) mmol/L Carbon Dioxide 19 L (22-30) mmol/L BUN 5 L (7-17) mg/dL Creatinine 0.43 L (0.52-1.04) mg/dL Microbiology - Last 24 Hours (Table) 09/04/18 17:32 Urine Culture - Final Urine,Clean Catch Assessment and Plan (1) Syncope Narrative/Plan: The patient states that she had passed out though the ER notes are more indicative of a near syncopal episode. There is no evidence of any infection. Hemoglobin is low, but close to baseline. If not had any significant bleeding. Most likely this episode is vasovagal/orthostatic in nature. No seizure activity was observed, and CT of the brain was negative. The patient is back to baseline currently with hydration. Continue supportive treatment. The patient was advised to make every effort to maintain oral intake and especially hydration. Current Visit: Yes Status: Acute Code(s): R55 - SYNCOPE AND COLLAPSE SNOMED Code(s): 345158845 (2) Metastatic lung cancer (metastasis from lung to other site) Narrative/Plan: Therapeutic and diagnostic circumstances as described. The pt is almost a week out from her first cycle. She has not had any major specific chemotherapy- related effects. Counts are somewhat diminished within a safe range. Continue to monitor. The plan is to add Keytruda with the second cycle, which hopefully will be given as an outpatient Current Visit: No Status: Acute Priority: High Code(s): C34.90 - MALIGNANT NEOPLASM OF UNSP PART OF UNSP BRONCHUS OR LUNG SNOMED Code(s): 04432186 (3) Pulmonary emboli Narrative/Plan: This is malignancy related, and the patient would therefore need long-term anticoagulation. She did have vaginal bleeding was initially placed on eliquis. After holding and resumption, she has not had significant bleeding. Continue anticoagulation, with ongoing monitoring for bleeding. Hold anticoagulation if platelets fall below 50,000 Current Visit: No Status: Acute Priority: High Code(s): I26.99 - OTHER PULMONARY EMBOLISM WITHOUT ACUTE COR PULMONALE SNOMED Code(s): 07406137 (4) Pancytopenia due to antineoplastic chemotherapy Narrative/Plan: The patient did have anemia previously due to malignancy, as well as blood loss. Hemoglobin has shown only a mild cough. White cells and platelets are diminished from chemotherapy but within a safe range. Continue to monitor with supportive measures as needed Current Visit: Yes Status: Acute Code(s): D61.810 - ANTINEOPLASTIC CHEMOTHERAPY INDUCED PANCYTOPENIA; T45.1X5A - ADVERSE EFFECT OF ANTINEOPLASTIC AND IMMUNOSUP DRUGS, INIT SNOMED Code(s): 176460687772655 Plan: Okay to discharge from the oncology standpoint, whenever felt to be stable for the same by the admitting service
[2018-09-06] MEDS: ATORVASTATIN 80 MG TAB PO SCH (20:32)
--- NOTE | 2018-09-06 21:41 | P.PN ---
Subjective This is a pleasant 52 years old female with past medical history of hyperlipidemia, hypertension, GERD, coronary artery disease status post cardiac cath, metastatic right lung cancer on chemotherapy, with liver metastases. She was recently discharged from the hospital earlier this month. Now she comes with generalized weakness, chronic lower abdominal pain for which she was taken [place] 10-325 milligrams, besides she recently got chemotherapy about 5 days ago. This time she presents with generalized weakness and loss of appetite for about one month which get worse after she got the chemotherapy. Also patient she feels that the pain medicine makes her more sleepy and she takes only half of [place] 10-325 mg for this reason, she states that Dilaudid helps her a lot better than [place] and she wants to switch her pain medicine from [place] to Dilaudid. She has some epigastric discomfort but thus related to when she takes antiacids. Patient says that she has history of PE and she is on Eliquis 09/06/18 pt today states she feels better after changing her pain medication from norco to dilaudid pills , however she did not need to take dilaudid yet. her weakness is improving with hydration , she is currently on [id number] Saline at 75 ml/hours . she is also on eliquis for her h/o Pulmonary embolism , which is malignancy related so she will need life long anticoagulation as per hematology team recommendation . also she is on megace from home . hematology/oncology team input is appreciated. Review of Systems CONSTITUTIONAL: negative. RESPIRATORY: Negative. CARDIOVASCULAR: Negative. GASTROINTESTINAL: Negative. GENITOURINARY: Negative. INTEGUMENT/BREAST: Negative. MUSCULOSKELETAL: Negative. NEUROLOGICAL: Negative. Medication: eliquis, [id number] Saline, megace, dilaudid, doxycycline, tyonol, lipitor, folic a , lopressor, zofran ,protonix. Objective - Vital Signs Vital signs: Vital Signs Temp 98.7 F 09/06/18 20:17 Pulse 101 H 09/06/18 20:17 Resp 18 09/06/18 20:17 BP 118/79 09/06/18 20:17 Pulse Ox 99 09/06/18 20:17 Intake & Output 09/06/18 09/06/18 09/07/18 06:59 18:59 06:59 Intake Total 1050 850 Balance 1050 850 Intake: Intake, IV Titration 650 450 Amount Dextrose 5%-0.9% NaCl 1, 650 450 000 ml @ 75 mls/hr IV . [id number] [facility] Rx#:[id number] Oral 400 400 Other: Voiding Method Bedside Commode Toilet # Voids 1 2 1 # Bowel Movements 1 1 1 - Exam GENERAL: The patient is alert and oriented x3, not in any acute distress. Well developed, well nourished. HEENT: Pupils are round and equally reacting to light. EOMI. No scleral icterus. No conjunctival pallor. Normocephalic, atraumatic. No pharyngeal erythema. No thyromegaly. CARDIOVASCULAR: S1 and S2 present. No murmurs, rubs, or gallops. PULMONARY: Chest is clear to auscultation, no wheezing or crackles. ABDOMEN: Soft, nontender, nondistended, normoactive bowel sounds. No palpable organomegaly. MUSCULOSKELETAL: No joint swelling or deformity. EXTREMITIES: No cyanosis, clubbing, or pedal edema. NEUROLOGICAL: Gross neurological examination did not reveal any focal deficits. SKIN: No rashes. - Labs CBC & Chem 7: 09/06/18 07:44 09/06/18 07:44 Labs: Abnormal Lab Results - Last 24 Hours (Table) 09/06/18 09/06/18 Range/Units 07:44 07:44 WBC 2.5 L (3.8-10.6) k/uL RBC 2.91 L (3.80-5.40) m/uL Hgb 7.9 L (11.4-16.0) gm/dL Hct 24.7 L (34.0-46.0) % RDW 18.6 H (11.5-15.5) % Plt Count 105 L (150-450) k/uL Lymphocytes # 0.5 L (1.0-4.8) k/uL Chloride 112 H (98-107) mmol/L Carbon Dioxide 19 L (22-30) mmol/L BUN 5 L (7-17) mg/dL Creatinine 0.43 L (0.52-1.04) mg/dL Microbiology - Last 24 Hours (Table) 09/04/18 17:32 Urine Culture - Final Urine,Clean Catch Assessment and Plan Assessment: Generalized weakness and dehydration metastatic lung cancer on chemotherapy Loss of appetite History of PE Hyperlipidemia Essential hypertension History of GERD History of coronary artery disease is status post cardiac cath Plan: This is a pleasant 52 years old female who presents with generalized weakness and loss of appetite, mostly related to her cancer and others factors like loss of appetite, epigastric discomfort, the tumor itself and this metastasis, deconditioning, the chemotherapy. Continue with IV hydration. Change her [place]/Percocet to Dilaudid pills upon patient request. Call oncology consult.Labs and medication were reviewed.. Continue same treatment. Continue with symptomatic treatment. Resume home medication. Monitor lytes and vitals. DVT and GI prophylaxis. Further recommendations of the clinical course of the patient DVT prophylaxis: Eliquis GI Prophylaxis: Ppi Prognosis is guarded
[2018-09-07] MEDS: DEXTROSE 5%-0.9% NACL 1,000 ML IV SCH ×2 (04:10→17:37)
[2018-09-07] MEDS: HYDROmorphone 2 MG TAB PO PRN ×3 (05:42→17:58)
[2018-09-07] MEDS: ONDANSETRON 4 MG/2 ML VIAL IVP PRN ×2 (05:43→17:57)
[2018-09-07 06:22] LABS: Anion Gap 7 mmol/L; Blood Urea Nitrogen 4 mg/dL (7-17); Carbon Dioxide 19 mmol/L (22-30); Chloride 112 mmol/L (98-107); Glucose 95 mg/dL (74-99); Potassium 4.3 mmol/L (3.5-5.1); Sodium 138 mmol/L (137-145)
[2018-09-07 06:28] LABS: Anisocytosis Slight; Basophils % (A) 0 %; Eosinophils # (A) 0.1 k/uL (0-0.7); Eosinophils % (A) 5 %; HCT 22.6 % (34.0-46.0); HGB 7.1 gm/dL (11.4-16.0); Hypochromasia Moderate; Lymphocytes # (A) 0.3 k/uL (1.0-4.8); Lymphocytes % (A) 25 %; MCH 26.8 pg (25.0-35.0); MCHC 31.4 g/dL (31.0-37.0); MCV 85.4 fL (80.0-100.0); Mean Platelet Volume 8.4; Monocytes # (A) 0.1 k/uL (0-1.0); Monocytes % (A) 6 %; Neutrophils # (A) 0.8 k/uL (1.3-7.7); Neutrophils % (A) 59 %; Poikilocytosis Slight; RBC 2.65 m/uL (3.80-5.40); RDW 18.3 % (11.5-15.5)
[2018-09-07 06:31] LABS: Platelet Count 101 k/uL (150-450)
[2018-09-07 06:35] LABS: WBC 1.3 k/uL (3.8-10.6)
[2018-09-07] MEDS: PANTOPRAZOLE 40 MG TABLET PO SCH (10:31)
[2018-09-07] MEDS: DOXYCYCLINE 100 MG CAP PO SCH ×2 (10:31→20:37)
[2018-09-07] MEDS: METOPROLOL TARTRATE 12.5 MG TAB PO SCH ×2 (10:31→20:37)
[2018-09-07] MEDS: MEGESTROL 400 MG/10 ML CUP PO SCH (10:32)
[2018-09-07] MEDS: APIXABAN 5 MG TAB PO SCH ×2 (10:32→20:37)
[2018-09-07] MEDS: FOLIC ACID 1 MG TAB PO SCH (10:32)
--- NOTE | 2018-09-07 13:51 | P.PN ---
Subjective Progress Note Date: 09/07/18 Principal diagnosis: dehydration, weakness, post chemo In f/u today pt has c/o abd discomfort, bilateral groin pain and distal radiating pain in the LLE. Last BM was yesterday, no diarrhea or blood, epigastric discomfort, mild nausea, no vomiting Objective - Vital Signs Vital signs: Vital Signs Temp 98.2 F 09/07/18 11:22 Pulse 90 09/07/18 11:22 Resp 16 09/07/18 11:22 BP 113/76 09/07/18 11:22 Pulse Ox 100 09/07/18 11:22 Intake & Output 09/06/18 09/07/18 09/07/18 18:59 06:59 18:59 Intake Total 850 1680 Balance 850 1680 Intake: Intake, IV Titration 450 900 Amount Dextrose 5%-0.9% NaCl 1, 450 900 000 ml @ 75 mls/hr IV . [id number] NAINA Rx#:[id number] Oral 400 780 Other: Voiding Method Toilet Bedside Commode Bedside Commode # Voids 2 1 # Bowel Movements 1 1 - Constitutional General appearance: Present: average body habitus, cooperative, mild distress - EENT Eyes: Present: anicteric sclerae, EOMI ENT: Present: hearing grossly normal, normal oropharynx - Respiratory Respiratory: bilateral: CTA - Cardiovascular Rhythm: regular Heart sounds: normal: S1, S2 Abnormal Heart Sounds: Absent: systolic murmur, diastolic murmur, rub, S3 Gallop, S4 Gallop, click, other - Peripheral edema leg Peripheral Edema: bilateral: None - Gastrointestinal Gastrointestinal Comment(s): no rebound General gastrointestinal: Present: distended, soft, tenderness - Integumentary Integumentary: Present: pale - Musculoskeletal Musculoskeletal: Present: generalized weakness, strength equal bilaterally - Psychiatric Psychiatric: Present: A&O x's 3, appropriate affect, intact judgment & insight - Labs CBC & Chem 7: 09/07/18 06:00 09/07/18 06:00 Labs: Abnormal Lab Results - Last 24 Hours (Table) 09/07/18 09/07/18 Range/Units 06:00 06:00 WBC 1.3 L* (3.8-10.6) k/uL RBC 2.65 L (3.80-5.40) m/uL Hgb 7.1 L (11.4-16.0) gm/dL Hct 22.6 L (34.0-46.0) % RDW 18.3 H (11.5-15.5) % Plt Count 101 L (150-450) k/uL Neutrophils # 0.8 L (1.3-7.7) k/uL Lymphocytes # 0.3 L (1.0-4.8) k/uL Chloride 112 H (98-107) mmol/L Carbon Dioxide 19 L (22-30) mmol/L BUN 4 L (7-17) mg/dL Creatinine 0.45 L (0.52-1.04) mg/dL Assessment and Plan (1) Dehydration Narrative/Plan: Cont gentle hydration. Monitor abd for increasing ascites, daily weight Current Visit: Yes Status: Acute Priority: High Code(s): E86.0 - DEHYDRATION SNOMED Code(s): 16247932 (2) Pancytopenia due to antineoplastic chemotherapy Narrative/Plan: WBC 1.3, ANC 800- No GCSF at this time. Close monitoring of VS for fever, mon itor for chills/rigors. Diet changed to clear liquids for abd discomfort, recommend NPO if progressive symptoms Hgb 7.1-no transfusion today, transfuse for Hgb<7 platelets-101,000, ok to continue PE treatment with eliquis, hold for bleeding CBC daily Current Visit: Yes Status: Acute Priority: High Code(s): D61.810 - ANTINEOPLASTIC CHEMOTHERAPY INDUCED PANCYTOPENIA; T45.1X5A - ADVERSE EFFECT OF ANTINEOPLASTIC AND IMMUNOSUP DRUGS, INIT SNOMED Code(s): 598645107946077 (3) Bilateral radiating leg pain Narrative/Plan: Metastatic malignancy-MRI lumbar spine ordered Current Visit: Yes Status: Acute Priority: High Code(s): M54.10 - RADICULOPATHY, SITE UNSPECIFIED SNOMED Code(s): 29715225 (4) Metastatic lung cancer (metastasis from lung to other site) Narrative/Plan: S/P 1st chemo, mild chemo SE, moderate hematological SE. Anticipated course. Plan to continue with treatment as scheduled for now Current Visit: Yes Status: Acute Priority: High Code(s): C34.90 - MALIGNANT NEOPLASM OF UNSP PART OF UNSP BRONCHUS OR LUNG SNOMED Code(s): 21056816 (5) Pulmonary emboli Narrative/Plan: Cont eliquis as prescribed Current Visit: No Status: Chronic Priority: Medium Code(s): I26.99 - OTHER PULMONARY EMBOLISM WITHOUT ACUTE COR PULMONALE SNOMED Code(s): 39857569 (6) Generalized weakness Narrative/Plan: PT/OT evaluate and treat Current Visit: Yes Status: Acute Priority: High Code(s): R53.1 - WEAKNESS SNOMED Code(s): 61139555 (7) Malignant ascites Narrative/Plan: Daily wt to monitor for ascites Current Visit: Yes Status: Acute Priority: High Code(s): R18.0 - MALIGNANT ASCITES SNOMED Code(s): 467167769
--- NOTE | 2018-09-07 15:45 | MR ---
EXAMINATION TYPE: MR lumbar spine wo/w con DATE OF EXAM: 09/07/2018 COMPARISON: CT 07/23/2017 HISTORY: bilateral groin pain, radiating pain in lt leg, metastatic disease TECHNIQUE: Multiplanar, multisequence images of the lumbar spine were acquired utilizing [address] gadolinium contrast. L1-L2: Normal disc appearance without desiccation. No herniation, protrusion or disc bulging. No ca nal stenosis is present. Foramina are patent bilaterally. L2-L3: Normal disc appearance without desiccation. No herniation, protrusion or disc bulging. No ca nal stenosis is present. Foramina are patent bilaterally. L3-L4: Normal disc appearance without desiccation. No herniation, protrusion or disc bulging. No ca nal stenosis is present. Foramina are patent bilaterally. L4-L5: Posterior disc bulge causes minimal anterior mass effect on the thecal sac. L5-S1: Normal disc appearance without desiccation. No herniation, protrusion or disc bulging. No ca nal stenosis is present. Foramina are patent bilaterally. Lumbar segments are intact. No paraspinal masses are identified. Conus medullaris has a normal appe arance. Lumbar vertebral bodies show preserved height, alignment. There is endplate discogenic marrow signal change, multilevel spondylosis. Disc spaces are relatively maintained. No evident canal steno sis or foraminal encroachment. Nodular appearance of the left adrenal gland. Abnormalities within the pelvis likely related to patient's fibroid uterus, right ovarian carcinoma with peritoneal implants. Probable hemangioma in L2 vertebral body to the right of midline IMPRESSION: Degenerative disc disease. Findings compatible with patient's history of carcinoma.
--- NOTE | 2018-09-07 17:07 | P.PN ---
Subjective This is a pleasant 52 years old female with past medical history of hyperlipidemia, hypertension, GERD, coronary artery disease status post cardiac cath, metastatic right lung cancer on chemotherapy, with liver metastases. She was recently discharged from the hospital earlier this month. Now she comes with generalized weakness, chronic lower abdominal pain for which she was taken [place] 10-325 milligrams, besides she recently got chemotherapy about 5 days ago. This time she presents with generalized weakness and loss of appetite for about one month which get worse after she got the chemotherapy. Also patient she feels that the pain medicine makes her more sleepy and she takes only half of [place] 10-325 mg for this reason, she states that Dilaudid helps her a lot better than [place] and she wants to switch her pain medicine from [place] to Dilaudid. She has some epigastric discomfort but thus related to when she takes antiacids. Patient says that she has history of PE and she is on Eliquis 09/06/18 pt today states she feels better after changing her pain medication from norco to dilaudid pills , however she did not need to take dilaudid yet. her weakness is improving with hydration , she is currently on [id number] Saline at 75 ml/hours . she is also on eliquis for her h/o Pulmonary embolism , which is malignancy related so she will need life long anticoagulation as per hematology team recommendation . also she is on megace from home . hematology/oncology team input is appreciated. 09/07/2018 Patients is more awake and alert today, her lethargy is significantly improved. However patient started having pain in her both flanks and lower back radiating to the extremity, as per patient she had similar pain with same severity about one month ago or so, at that time they put her on [place] which made her lethargy. She is happy with switching narcotics to by mouth Dilaudid however the pain came back as Dilaudid dose looks not enough for the patient, patient she might need a higher dose of Dilaudid or total Dilaudid start kicking in. The same time hematology consult/oncology team are planning to do MRI of the back given her history., Review of Systems CONSTITUTIONAL: negative. RESPIRATORY: Negative. CARDIOVASCULAR: Negative. GASTROINTESTINAL: Negative. GENITOURINARY: Negative. INTEGUMENT/BREAST: Negative. MUSCULOSKELETAL: Negative. NEUROLOGICAL: Negative. Medication: eliquis, [id number] Saline, megace, dilaudid, doxycycline, tyonol, lipitor, folic a , lopressor, zofran ,protonix. Objective - Vital Signs Vital signs: Vital Signs Temp 98.2 F 09/07/18 11:22 Pulse 90 09/07/18 11:22 Resp 16 09/07/18 11:22 BP 113/76 09/07/18 11:22 Pulse Ox 100 09/07/18 11:22 Intake & Output 09/06/18 09/07/18 09/07/18 18:59 06:59 18:59 Intake Total 850 1680 250 Balance 850 1680 250 Intake: Intake, IV Titration 450 900 Amount Dextrose 5%-0.9% NaCl 1, 450 900 000 ml @ 75 mls/hr IV . [id number] NAINA Rx#:[id number] Oral 400 780 250 Other: Voiding Method Toilet Bedside Commode Bedside Commode # Voids 2 1 2 # Bowel Movements 1 1 - Exam GENERAL: The patient is alert and oriented x3, not in any acute distress. Well developed, well nourished. HEENT: Pupils are round and equally reacting to light. EOMI. No scleral icterus. No conjunctival pallor. Normocephalic, atraumatic. No pharyngeal erythema. No thyromegaly. CARDIOVASCULAR: S1 and S2 present. No murmurs, rubs, or gallops. PULMONARY: Chest is clear to auscultation, no wheezing or crackles. ABDOMEN: Soft, nontender, nondistended, normoactive bowel sounds. No palpable organomegaly. MUSCULOSKELETAL: No joint swelling or deformity. EXTREMITIES: No cyanosis, clubbing, or pedal edema. NEUROLOGICAL: Gross neurological examination did not reveal any focal deficits. SKIN: No rashes. - Labs CBC & Chem 7: 09/07/18 06:00 09/07/18 06:00 Labs: Abnormal Lab Results - Last 24 Hours (Table) 09/07/18 09/07/18 Range/Units 06:00 06:00 WBC 1.3 L* (3.8-10.6) k/uL RBC 2.65 L (3.80-5.40) m/uL Hgb 7.1 L (11.4-16.0) gm/dL Hct 22.6 L (34.0-46.0) % RDW 18.3 H (11.5-15.5) % Plt Count 101 L (150-450) k/uL Neutrophils # 0.8 L (1.3-7.7) k/uL Lymphocytes # 0.3 L (1.0-4.8) k/uL Chloride 112 H (98-107) mmol/L Carbon Dioxide 19 L (22-30) mmol/L BUN 4 L (7-17) mg/dL Creatinine 0.45 L (0.52-1.04) mg/dL Assessment and Plan Assessment: Generalized weakness and dehydration metastatic lung cancer on chemotherapy Lower back pain, with radiculopathy Loss of appetite History of PE Hyperlipidemia Essential hypertension History of GERD History of coronary artery disease is status post cardiac cath Plan: This is a pleasant 52 years old female who presents with generalized weakness and loss of appetite, mostly related to her cancer and others factors like loss of appetite, epigastric discomfort, the tumor itself and this metastasis, deconditioning, the chemotherapy. Continue with IV hydration. Change her [place]/Percocet to Dilaudid pills upon patient request. Call oncology consult. MRI of the spine as per oncology team Labs and medication were reviewed.. Continue same treatment. Continue with symptomatic treatment. Resume home medication. Monitor lytes and vitals. DVT and GI prophylaxis. Further recommendations of the clinical course of the patient DVT prophylaxis: Eliquis GI Prophylaxis: Ppi Prognosis is guarded
[2018-09-07] MEDS: ATORVASTATIN 80 MG TAB PO SCH (20:37)
[2018-09-08] MEDS: HYDROmorphone 2 MG TAB PO PRN ×4 (04:03→22:06)
[2018-09-08] MEDS: SODIUM CHLORIDE 0.9% 1,000 ML IV SCH ×2 (04:05→13:12)
[2018-09-08] MEDS: MAGNESIUM OXIDE 400 MG TAB PO SCH (07:44)
[2018-09-08] MEDS: METOPROLOL TARTRATE 12.5 MG TAB PO SCH ×3 (07:44→20:43)
[2018-09-08] MEDS: DOXYCYCLINE 100 MG CAP PO SCH ×2 (07:45→20:45)
[2018-09-08] MEDS: FOLIC ACID 1 MG TAB PO SCH (07:45)
[2018-09-08] MEDS: MEGESTROL 400 MG/10 ML CUP PO SCH (07:45)
[2018-09-08] MEDS: APIXABAN 5 MG TAB PO SCH ×2 (07:45→20:43)
[2018-09-08] MEDS: PANTOPRAZOLE 40 MG TABLET PO SCH (07:45)
[2018-09-08 09:05] LABS: Anisocytosis Slight; HCT 23.4 % (34.0-46.0); HGB 7.2 gm/dL (11.4-16.0); Hypochromasia Moderate; MCH 26.2 pg (25.0-35.0); MCHC 30.6 g/dL (31.0-37.0); MCV 85.7 fL (80.0-100.0); Poikilocytosis Slight; RBC 2.73 m/uL (3.80-5.40); RDW 18.2 % (11.5-15.5)
[2018-09-08 11:33] LABS: Eosinophils # (M) 0.04 k/uL (0-0.7); Lymphocytes # (M) 0.74 k/uL (1.0-4.8); Monocytes # (M) 0.26 k/uL (0-1.0); Neutrophils # (M) 0.96 k/uL (1.3-7.7); Neutrophils % (M) 48 %; Nucleated Red Blood Cells 0 /100 WBC (0-0); Total Cells Counted 100
[2018-09-08 11:35] LABS: Platelet Count 90 k/uL (150-450)
--- NOTE | 2018-09-08 18:12 | P.PN ---
Subjective This is a pleasant 52 years old female with past medical history of hyperlipidemia, hypertension, GERD, coronary artery disease status post cardiac cath, metastatic right lung cancer on chemotherapy, with liver metastases. She was recently discharged from the hospital earlier this month. Now she comes with generalized weakness, chronic lower abdominal pain for which she was taken [place] 10-325 milligrams, besides she recently got chemotherapy about 5 days ago. This time she presents with generalized weakness and loss of appetite for about one month which get worse after she got the chemotherapy. Also patient she feels that the pain medicine makes her more sleepy and she takes only half of [place] 10-325 mg for this reason, she states that Dilaudid helps her a lot better than [place] and she wants to switch her pain medicine from [place] to Dilaudid. She has some epigastric discomfort but thus related to when she takes antiacids. Patient says that she has history of PE and she is on Eliquis 09/06/18 pt today states she feels better after changing her pain medication from norco to dilaudid pills , however she did not need to take dilaudid yet. her weakness is improving with hydration , she is currently on [id number] Saline at 75 ml/hours . she is also on eliquis for her h/o Pulmonary embolism , which is malignancy related so she will need life long anticoagulation as per hematology team recommendation . also she is on megace from home . hematology/oncology team input is appreciated. 09/07/2018 Patients is more awake and alert today, her lethargy is significantly improved. However patient started having pain in her both flanks and lower back radiating to the extremity, as per patient she had similar pain with same severity about one month ago or so, at that time they put her on [place] which made her lethargy. She is happy with switching narcotics to by mouth Dilaudid however the pain came back as Dilaudid dose looks not enough for the patient, patient she might need a higher dose of Dilaudid or total Dilaudid start kicking in. The same time hematology consult/oncology team are planning to do MRI of the back given her history., 09/08/2018 Patient still feels generally weak, borderline hypertensive and hemoglobin also borderline around 7.2. Her pain is uncontrolled on her abdomen which is mostly related to her metastatic cancer. Due to her symptoms I discussed the case with oncology team and patient might benefit from 1 unit of blood transfusion. I discussed with the patient and daughter Miss Puente at bedside and she verbalized understanding and acceptance after risks benefits and alternatives are ex plained. Patient is uncontrolled and Dilaudid dose has increased to 2 mg every 6 hours. Patient other vitals are stable. Labs show pancytopenia. I discussed the finding of the MRI with the patient and her daughter and they verbalized understanding. All their questions are answered to their satisf action Discussed with staff Review of Systems CONSTITUTIONAL: negative. RESPIRATORY: Negative. CARDIOVASCULAR: Negative. GASTROINTESTINAL: Negative. GENITOURINARY: Negative. INTEGUMENT/BREAST: Negative. MUSCULOSKELETAL: Negative. NEUROLOGICAL: Negative. Medication: eliquis, [id number] Saline, megace, dilaudid, doxycycline, tyonol, lipitor, folic a , lopressor, zofran ,protonix. Objective - Vital Signs Vital signs: Vital Signs Temp 98.6 F 09/08/18 13:34 Pulse 97 09/08/18 16:00 Resp 18 09/08/18 16:00 BP 97/64 09/08/18 13:34 Pulse Ox 100 09/08/18 13:34 Intake & Output 09/07/18 09/08/18 09/08/18 18:59 06:59 18:59 Intake Total 250 690 Balance 250 690 Weight 68.8 kg Intake: Oral 250 690 Other: Voiding Method Bedside Commode Toilet Toilet # Voids 2 2 3 - Exam GENERAL: The patient is alert and oriented x3, not in any acute distress. Well developed, well nourished. HEENT: Pupils are round and equally reacting to light. EOMI. No scleral icterus. No conjunctival pallor. Normocephalic, atraumatic. No pharyngeal erythema. No thyromegaly. CARDIOVASCULAR: S1 and S2 present. No murmurs, rubs, or gallops. PULMONARY: Chest is clear to auscultation, no wheezing or crackles. ABDOMEN: Soft, nontender, nondistended, normoactive bowel sounds. No palpable organomegaly. MUSCULOSKELETAL: No joint swelling or deformity. EXTREMITIES: No cyanosis, clubbing, or pedal edema. NEUROLOGICAL: Gross neurological examination did not reveal any focal deficits. SKIN: No rashes. - Labs CBC & Chem 7: 09/08/18 08:40 04/26/19 06:00 Labs: Abnormal Lab Results - Last 24 Hours (Table) 09/08/18 09/08/18 Range/Units 08:40 17:00 WBC 2.0 L (3.8-10.6) k/uL RBC 2.73 L (3.80-5.40) m/uL Hgb 7.2 L (11.4-16.0) gm/dL Hct 23.4 L (34.0-46.0) % MCHC 30.6 L (31.0-37.0) g/dL RDW 18.2 H (11.5-15.5) % Plt Count 90 L (150-450) k/uL Neutrophils # (Manual) 0.96 L (1.3-7.7) k/uL Lymphocytes # (Manual) 0.74 L (1.0-4.8) k/uL Crossmatch See Detail Assessment and Plan Assessment: Generalized weakness and dehydration metastatic lung cancer on chemotherapy Lower back pain, with radiculopathy Loss of appetite History of PE Hyperlipidemia Essential hypertension History of GERD History of coronary artery disease is status post cardiac cath Plan: This is a pleasant 52 years old female who presents with generalized weakness and loss of appetite, mostly related to her cancer and others factors like loss of appetite, epigastric discomfort, the tumor itself and this metastasis, deconditioning, the chemotherapy. Continue with IV hydration. Change her [place]/Percocet to Dilaudid pills upon patient request. Call oncology consult. MRI of the spine as per oncology team Labs and medication were reviewed.. Continue same treatment. Continue with symptomatic treatment. Resume home medication. Monitor lytes and vitals. DVT and GI prophylaxis. Further recommendations of the clinical course of the patie nt DVT prophylaxis: Eliquis GI Prophylaxis: Ppi Prognosis is guarded
[2018-09-08] MEDS: ATORVASTATIN 80 MG TAB PO SCH (20:43)
[2018-09-09] MEDS: HYDROmorphone 2 MG TAB PO PRN ×2 (04:12→09:00)
[2018-09-09 05:42] VITALS: BP 98/56; PULSE 88; RESP 16; TEMP 98.2
[2018-09-09 08:05] LABS: Anisocytosis Slight; HCT 28.3 % (34.0-46.0); Hypochromasia Moderate; MCH 27.8 pg (25.0-35.0); MCV 86.9 fL (80.0-100.0); Mean Platelet Volume 9.1; Platelet Count 102 k/uL (150-450); Poikilocytosis Moderate; RBC 3.25 m/uL (3.80-5.40); RDW 17.8 % (11.5-15.5); WBC 2.4 k/uL (3.8-10.6)
[2018-09-09] MEDS: DOXYCYCLINE 100 MG CAP PO SCH (08:59)
[2018-09-09] MEDS: MAGNESIUM OXIDE 400 MG TAB PO SCH (08:59)
[2018-09-09] MEDS: METOPROLOL TARTRATE 12.5 MG TAB PO SCH (08:59)
[2018-09-09] MEDS: MEGESTROL 400 MG/10 ML CUP PO SCH (08:59)
[2018-09-09] MEDS: PANTOPRAZOLE 40 MG TABLET PO SCH (08:59)
[2018-09-09] MEDS: APIXABAN 5 MG TAB PO SCH (08:59)
[2018-09-09 10:14] LABS: Eosinophils # (M) 0.07 k/uL (0-0.7); Lymphocytes # (M) 0.65 k/uL (1.0-4.8); Monocytes # (M) 0.48 k/uL (0-1.0); Neutrophils % (M) 50 %; Nucleated Red Blood Cells 0 /100 WBC (0-0); Total Cells Counted 100
== END 2018-09-09 12:05 | disposition home health service (06) | DRG 640 ==
LOC: EC 15:44 → 3NMEDONC 18:37
PROVIDERS: ADMIT Hospitalist; ATTEND Hospitalist
DX: E86.0 Dehydration (principal); D61.810 Antineoplastic chemotherapy induced pancytopenia; C34.91 Malignant neoplasm of unspecified part of right bronchus or lung; C78.7 Secondary malignant neoplasm of liver and intrahepatic bile duct; R18.0 Malignant ascites; Z87.891 Personal history of nicotine dependence; E78.5 Hyperlipidemia, unspecified; F41.0 Panic disorder [episodic paroxysmal anxiety]; I10 Essential (primary) hypertension; I25.10 Atherosclerotic heart disease of native coronary artery without angina pectoris; I25.2 Old myocardial infarction; K21.9 Gastro-esophageal reflux disease without esophagitis; Z79.01 Long term (current) use of anticoagulants; Z79.899 Other long term (current) drug therapy; Z85.21 Personal history of malignant neoplasm of larynx; Z86.711 Personal history of pulmonary embolism; T45.1X5A Adverse effect of antineoplastic and immunosuppressive drugs, initial encounter; G89.3 Neoplasm related pain (acute) (chronic); Z95.5 Presence of coronary angioplasty implant and graft; Z92.3 Personal history of irradiation; M54.10 Radiculopathy, site unspecified; Z88.0 Allergy status to penicillin; Z90.2 Acquired absence of lung [part of]; R53.1 Weakness
CPT/HCPCS: 36415; 70450; 72158; 80048; 80053; 81001; 83605; 83735; 84100; 84443; 84484; 85025; 85610; 85730; 86850; 86900; 86901; 86920; 87086; 93005; 96361; 96374; 99285

== ENCOUNTER 2018-09-23 13:22 | Observation (INO) | payer OTHER ==
[2018-09-23] MEDS ORDERED: SODIUM CHLORIDE 0.9% 1,000 ML IV STA (13:54)
[2018-09-23] MEDS ORDERED: ONDANSETRON 4 MG/2 ML VIAL IVP STA (13:54)
[2018-09-23] MEDS ORDERED: HYDROmorphone 0.5 MG/0.5 ML SYRINGE IVP STA (13:54)
--- NOTE | 2018-09-23 13:56 | ED ---
General Adult HPI - General Chief complaint: Weakness Stated complaint: Weakness Time Seen by Provider: 09/23/18 13:43 Source: patient, family, RN notes reviewed, old records reviewed Mode of arrival: ambulatory Limitations: no limitations - History of Present Illness Initial comments: 52 -year-old female presenting with nausea vomiting, abdominal pain, and concern for dehydration. Patient is currently being treated for lung cancer, receiving chemotherapy infusion on Monday. She said nausea and decreased appetite over the past 48 hours. She does report some diffuse generalized abdominal pain. No diarrhea. Denies fever but has had chills. Denies dysuria. Denies chest pain or dyspnea. - Related Data Home Medications Medication Instructions Recorded Confirmed Apixaban [Eliquis Starter Pack 5 mg PO DIRECTED 08/30/18 09/23/18 (for VTE)] Ondansetron [Zofran ODT] 4 mg PO Q8HR 08/30/18 09/23/18 Previous Rx's Medication Instructions Recorded Acetaminophen Tab [Tylenol] 500 mg PO Q6H PRN #30 tablet 08/24/18 Cefuroxime Axetil [Ceftin] 500 mg PO BID 3 Days #14 tab 08/24/18 Folic Acid 1 mg PO DAILY #30 tab 08/24/18 Pantoprazole Sodium [Protonix] 40 mg PO DAILY #30 tablet. 08/24/18 Acetaminophen Tab [Tylenol] 650 mg PO Q6HR PRN tab 09/01/18 Atorvastatin [Lipitor] 80 mg PO HS tab 09/01/18 Doxycycline [Vibramycin] 100 mg PO BID 7 Days #14 cap 09/01/18 Megestrol [Megace] 400 mg PO DAILY #30 cup 09/01/18 Docusate [Colace] 100 mg PO BID PRN #60 capsule 09/09/18 HYDROmorphone [Dilaudid] 2 mg PO Q6HR PRN 7 Days #28 tab 09/09/18 Magnesium Oxide [Mag-Ox] 400 mg PO DAILY #3 tab 09/09/18 Sennosides [Senna] 8.6 mg PO HS PRN #60 tablet 09/09/18 Allergies Allergy/AdvReac Type Severity Reaction Status Date / Time Penicillins Allergy Unknown Verified 09/23/18 14:01 Childhood Review of Systems ROS Statement: Those systems with pertinent positive or pertinent negative responses have been documented in the HPI. ROS Other: All systems not noted in ROS Statement are negative. Past Medical History Past Medical History: Cancer, GERD/Reflux, Hyperlipidemia, Hypertension, Myocardial Infarction ([place]) Additional Past Medical History / Comment(s): BRAIN ANEURSYM, [place] 2012, LUNG CA diagnosed 2014, CARPAL TUNNEL RIGHT WRIST, throat CA dx apr 2018 Last Myocardial Infarction Date:: 04/30/2013 History of Any Multi-Drug Resistant Organisms: None Reported Past Surgical History: Heart Catheterization, Orthopedic Surgery, Tubal Ligation, Uterine Ablation Additional Past Surgical History / Comment(s): ANGIOPLASTY FOR BRAIN ANEURSYM, CARPEL TUNNEL RIGHT WRIST , and laparoscopy, PARTIAL RIGHT LUNG REMOVAL ,PTCA, Past Anesthesia/Blood Transfusion Reactions: No Reported Reaction Past Psychological History: Anxiety, Panic Disorder Smoking Status: Former smoker Past Alcohol Use History: None Reported Past Drug Use History: None Reported - Past Family History Mother Family Medical History: Cancer Father Family Medical History: Cancer General Exam Limitations: no limitations General appearance: alert, in no apparent distress Head exam: Present: atraumatic, normocephalic Eye exam: Present: normal appearance, PERRL ENT exam: Present: mucous membranes dry Neck exam: Present: normal inspection. Absent: meningismus Respiratory exam: Present: normal lung sounds bilaterally. Absent: respiratory distress Cardiovascular Exam: Present: regular rate, normal rhythm GI/Abdominal exam: Present: soft, tenderness (Wall generalized tenderness to palpation). Absent: distended, guarding, rebound Extremities exam: Present: normal inspection, normal capillary refill. Absent: pedal edema Neurological exam: Present: alert, oriented X3 Psychiatric exam: Present: normal affect, normal mood Skin exam: Present: warm, dry, intact. Absent: cyanosis, diaphoretic Course Vital Signs 09/23/18 13:36 Temperature 98.3 F Pulse Rate 111 H Respiratory 16 Rate Blood Pressure 101/68 O2 Sat by Pulse 100 Oximetry EKG Findings - EKG Comments: EKG Findings:: EKG normal sinus rhythm, rate 98, OH interval 120, QRS duration 82 QTC 431, no ST segment elevation. Medical Decision Making - Medical Decision Making 52-year-old female. Chemotherapy for lung CVA, presenting with decreased appetite, nausea vomiting, dehydration. Patient has normal white blood cell count. Stable hemoglobin. She has hypomagnesemia with magnesium 1.3. This is replaced the emergency prompt or she will be admitted for symptomatically 4, IV fluids. Case discussed with admitting physician. - Lab Data Result diagrams: 09/23/18 14:40 09/23/18 14:40 Lab Results 09/23/18 09/23/18 09/23/18 Range/Units 14:40 14:40 14:40 WBC 6.6 (3.8-10.6) k/uL RBC 3.50 L (3.80-5.40) m/uL Hgb 9.6 L (11.4-16.0) gm/dL Hct 30.7 L (34.0-46.0) % MCV 87.7 (80.0-100.0) fL MCH 27.5 (25.0-35.0) pg MCHC 31.4 (31.0-37.0) g/dL RDW 20.3 H (11.5-15.5) % Plt Count 624 H (150-450) k/uL Neutrophils % 85 % Lymphocytes % 9 % Monocytes % 3 % Eosinophils % 1 % Basophils % 0 % Neutrophils # 5.6 (1.3-7.7) k/uL Lymphocytes # 0.6 L (1.0-4.8) k/uL Monocytes # 0.2 (0-1.0) k/uL Eosinophils # 0.1 (0-0.7) k/uL Basophils # 0.0 (0-0.2) k/uL Hypochromasia Slight Poikilocytosis Slight Anisocytosis Moderate PT (9.0-12.0) sec INR (<1.2) APTT (22.0-30.0) sec Sodium 138 (137-145) mmol/L Potassium 3.7 (3.5-5.1) mmol/L Chloride 109 H (98-107) mmol/L Carbon Dioxide 21 L (22-30) mmol/L Anion Gap 8 mmol/L BUN 7 (7-17) mg/dL Creatinine 0.50 L (0.52-1.04) mg/dL Est GFR (CKD-EPI)AfAm >90 (>60 ml/min/1.73 sqM) Est GFR (CKD-EPI)NonAf >90 (>60 ml/min/1.73 sqM) Glucose 87 (74-99) mg/dL Plasma Lactic Acid [place] 0.9 (0.7-2.0) mmol/L Calcium 9.7 (8.4-10.2) mg/dL Magnesium 1.3 L (1.6-2.3) mg/dL Total Bilirubin 0.4 (0.2-1.3) mg/dL AST 27 (14-36) U/L ALT 35 (9-52) U/L Alkaline Phosphatase 96 (38-126) U/L Troponin I (0.000-0.034) ng/mL Total Protein 6.4 (6.3-8.2) g/dL Albumin 3.4 L (3.5-5.0) g/dL Urine Color Urine Appearance (Clear) Urine pH (5.0-8.0) Ur Specific [place] (1.001-1.035) Urine Protein (Negative) Urine Glucose (UA) (Negative) Urine Ketones (Negative) Urine Blood (Negative) Urine Nitrite (Negative) Urine Bilirubin (Negative) Urine Urobilinogen (<2.0) mg/dL Ur Leukocyte Esterase (Negative) Urine RBC (0-5) /hpf Urine WBC (0-5) /hpf Ur Squamous Epith Cells (0-4) /hpf Urine Mucus (None) /hpf 09/23/18 09/23/18 09/23/18 Range/Units 14:40 14:40 14:40 WBC (3.8-10.6) k/uL RBC (3.80-5.40) m/uL Hgb (11.4-16.0) gm/dL Hct (34.0-46.0) % MCV (80.0-100.0) fL MCH (25.0-35.0) pg MCHC (31.0-37.0) g/dL RDW (11.5-15.5) % Plt Count (150-450) k/uL Neutrophils % % Lymphocytes % % Monocytes % % Eosinophils % % Basophils % % Neutrophils # (1.3-7.7) k/uL Lymphocytes # (1.0-4.8) k/uL Monocytes # (0-1.0) k/uL Eosinophils # (0-0.7) k/uL Basophils # (0-0.2) k/uL Hypochromasia Poikilocytosis Anisocytosis PT 11.0 (9.0-12.0) sec INR 1.0 (<1.2) APTT 24.9 (22.0-30.0) sec Sodium (137-145) mmol/L Potassium (3.5-5.1) mmol/L Chloride (98-107) mmol/L Carbon Dioxide (22-30) mmol/L Anion Gap mmol/L BUN (7-17) mg/dL Creatinine (0.52-1.04) mg/dL Est GFR (CKD-EPI)AfAm (>60 ml/min/1.73 sqM) Est GFR (CKD-EPI)NonAf (>60 ml/min/1.73 sqM) Glucose (74-99) mg/dL Plasma Lactic Acid [place] (0.7-2.0) mmol/L Calcium (8.4-10.2) mg/dL Magnesium (1.6-2.3) mg/dL Total Bilirubin (0.2-1.3) mg/dL AST (14-36) U/L ALT (9-52) U/L Alkaline Phosphatase (38-126) U/L Troponin I <0.012 (0.000-0.034) ng/mL Total Protein (6.3-8.2) g/dL Albumin (3.5-5.0) g/dL Urine Color Yellow Urine Appearance Clear (Clear) Urine pH 6.5 (5.0-8.0) Ur Specific [place] 1.024 (1.001-1.035) Urine Protein 1+ H (Negative) Urine Glucose (UA) Negative (Negative) Urine Ketones Negative (Negative) Urine Blood Trace H (Negative) Urine Nitrite Negative (Negative) Urine Bilirubin Negative (Negative) Urine Urobilinogen <2.0 (<2.0) mg/dL Ur Leukocyte Esterase Moderate H (Negative) Urine RBC 10 H (0-5) /hpf Urine WBC 15 H (0-5) /hpf Ur Squamous Epith Cells 7 H (0-4) /hpf Urine Mucus Occasional H (None) /hpf Disposition Clinical Impression: Dehydration, Generalized weakness, Hypomagnesemia Disposition: ADMITTED IP TO THIS [facility] Condition: Stable Is patient prescribed a controlled substance at d/c from ED?: No Referrals: Latisha Ziegler MD [Primary Care Provider] - 1-2 days Decision to Admit Reason: Admit from EC Decision Date: 09/23/18 Decision Time: 15:55
--- NOTE | 2018-09-23 15:02 | XR ---
EXAMINATION TYPE: XR chest 2V DATE OF EXAM: 09/23/2018 COMPARISON: 08/30/2018 HISTORY: Weakness TECHNIQUE: Frontal and lateral views of the chest are obtained. FINDINGS: Heart and mediastinum are normal. There is mild blunting of right costophrenic angle. Ther e is right central venous catheter with the tip in the superior vena cava. There are chest leads. Amy gs are clear of consolidation. IMPRESSION: There is some pleural diaphragmatic scarring at the lateral right lung base unchanged. N o acute lung disease.
[2018-09-23 15:03] LABS: Anisocytosis Moderate; Basophils % (A) 0 %; Eosinophils # (A) 0.1 k/uL (0-0.7); Eosinophils % (A) 1 %; HCT 30.7 % (34.0-46.0); HGB 9.6 gm/dL (11.4-16.0); Hypochromasia Slight; Lymphocytes # (A) 0.6 k/uL (1.0-4.8); Lymphocytes % (A) 9 %; MCH 27.5 pg (25.0-35.0); MCHC 31.4 g/dL (31.0-37.0); MCV 87.7 fL (80.0-100.0); Monocytes # (A) 0.2 k/uL (0-1.0); Monocytes % (A) 3 %; Neutrophils # (A) 5.6 k/uL (1.3-7.7); Neutrophils % (A) 85 %; Platelet Count 624 k/uL (150-450); Poikilocytosis Slight; RDW 20.3 % (11.5-15.5); WBC 6.6 k/uL (3.8-10.6)
[2018-09-23 15:04] LABS: Appearance,Urine Clear (Clear); Bilirubin,Urine Negative (Negative); Blood,Urine Trace (Negative); Color,Urine Yellow; Glucose,Urine (UA) Negative (Negative); Ketones,Urine Negative (Negative); Leukocyte Esterase,Urine Moderate (Negative); Mucus,Urine Occasional /hpf; Nitrite,Urine Negative (Negative); PH, Urine 6.5 (5.0-8.0); Protein,Urine 1+ (Negative); RBC,Urine 10 /hpf (0-5); Specific Gravity,Urine 1.024 (1.001-1.035); Squamous Epithelial Cell,Urine 7 /hpf (0-4); Urobilinogen,Urine <2.0 mg/dL (<2.0); WBC,Urine 15 /hpf (0-5)
[2018-09-23 15:11] LABS: Partial Thromboplastin Time 24.9 sec (22.0-30.0)
[2018-09-23 15:17] LABS: ALT 35 U/L (9-52); AST 27 U/L (14-36); Albumin 3.4 g/dL (3.5-5.0); Alkaline Phosphatase 96 U/L (38-126); Anion Gap 8 mmol/L; Blood Urea Nitrogen 7 mg/dL (7-17); Calcium 9.7 mg/dL (8.4-10.2); Carbon Dioxide 21 mmol/L (22-30); Chloride 109 mmol/L (98-107); Glucose 87 mg/dL (74-99); Magnesium 1.3 mg/dL (1.6-2.3); Potassium 3.7 mmol/L (3.5-5.1); Sodium 138 mmol/L (137-145); Total Bilirubin 0.4 mg/dL (0.2-1.3); Total Protein 6.4 g/dL (6.3-8.2)
[2018-09-23] MEDS ORDERED: NALOXONE 0.4 MG/ML 1 ML VIAL IV PRN (15:48)
[2018-09-23] MEDS ORDERED: ONDANSETRON 4 MG/2 ML VIAL IVP PRN (15:48)
[2018-09-23] MEDS ORDERED: ACETAMINOPHEN TAB 325 MG TAB PO PRN ×2 (15:48→16:29)
[2018-09-23] MEDS ORDERED: DOCUSATE 100 MG CAP PO PRN (16:29)
[2018-09-23] MEDS ORDERED: SENNOSIDES 8.6 MG TAB PO PRN (16:29)
[2018-09-23] MEDS ORDERED: ACETAMINOPHEN TAB 500 MG TAB PO PRN (16:29)
--- NOTE | 2018-09-23 16:36 | P.HPIM ---
History of Present Illness 52-year-old pleasant female came in with nausea vomiting abdominal pain and able to tolerate anything with concern of dehydration patient has diabetes mellitus although her serum creatinine is okay. Patient is a syncopal therapy for her recently diagnosed lung cancer at last chemoinfusion was a Monday that his couple days ago. Patient denied any fever chills patient and dysuria patient has a abnormal urine but that is the contaminated urine sample with us, saphenous as there is no evidence of infection at this time patient is not neutropenic at this time. Patient doesn't have any fevers. Patient is being admitted the as she is unable to tolerate any by mouth diet and patient is bit tachycardic as well from dehydration. Patient is on Eliquis, I still have to ask about her history of any DVTs and the recent past 8 Review of Systems REVIEW OF SYSTEMS: CONSTITUTIONAL: No fever, no malaise, no fatigue. HEENT: No recent visual problems or hearing problems. Denied any sore throat. CARDIOVASCULAR: No chest pain, orthopnea, PND, no palpitations, no syncope. PULMONARY: No shortness of breath, no cough, no hemoptysis. GASTROINTESTINAL: As mentioned in HPI NEUROLOGICAL: No headaches, no weakness, no numbness. HEMATOLOGICAL: Denies any bleeding or petechiae. GENITOURINARY: Denies any burning micturition, frequency, or urgency. MUSCULOSKELETAL/RHEUMATOLOGICAL: Denies any joint pain, swelling, or any muscle pain. ENDOCRINE: Denies any polyuria or polydipsia. The rest of the 14-point review of systems is negative. Past Medical History Past Medical History: Cancer, GERD/Reflux, Hyperlipidemia, Hypertension, Myocardial Infarction ([place]) Additional Past Medical History / Comment(s): BRAIN ANEURSYM, [place] 2012, LUNG CA diagnosed 2014, CARPAL TUNNEL RIGHT WRIST, throat CA dx apr 2018 Last Myocardial Infarction Date:: 04/30/2013 History of Any Multi-Drug Resistant Organisms: None Reported Past Surgical History: Heart Catheterization, Orthopedic Surgery, Tubal Ligation, Uterine Ablation Additional Past Surgical History / Comment(s): ANGIOPLASTY FOR BRAIN ANEURSYM, CARPEL TUNNEL RIGHT WRIST , and laparoscopy, PARTIAL RIGHT LUNG REMOVAL ,PTCA, Past Anesthesia/Blood Transfusion Reactions: No Reported Reaction Past Psychological History: Anxiety, Panic Disorder Smoking Status: Former smoker Past Alcohol Use History: None Reported Past Drug Use History: None Reported - Past Family History Mother Family Medical History: Cancer Father Family Medical History: Cancer Medications and Allergies Home Medications Medication Instructions Recorded Confirmed Type Acetaminophen Tab [Tylenol] 500 mg PO Q6H PRN #30 tablet 08/24/18 09/23/18 Rx Cefuroxime Axetil [Ceftin] 500 mg PO BID 3 Days #14 tab 08/24/18 09/23/18 Rx Folic Acid 1 mg PO DAILY #30 tab 08/24/18 09/23/18 Rx Pantoprazole Sodium [Protonix] 40 mg PO DAILY #30 tablet.dr 08/24/18 09/23/18 Rx Apixaban [Eliquis Starter Pack 5 mg PO DIRECTED 08/30/18 09/23/18 History (for VTE)] Ondansetron [Zofran ODT] 4 mg PO Q8HR 08/30/18 09/23/18 History Acetaminophen Tab [Tylenol] 650 mg PO Q6HR PRN tab 09/01/18 09/23/18 Rx Atorvastatin [Lipitor] 80 mg PO HS tab 09/01/18 09/23/18 Rx Doxycycline [Vibramycin] 100 mg PO BID 7 Days #14 cap 09/01/18 09/23/18 Rx Megestrol [Megace] 400 mg PO DAILY #30 cup 09/01/18 09/23/18 Rx Docusate [Colace] 100 mg PO BID PRN #60 capsule 09/09/18 09/23/18 Rx HYDROmorphone [Dilaudid] 2 mg PO Q6HR PRN 7 Days #28 tab 09/09/18 09/23/18 Rx Magnesium Oxide [Mag-Ox] 400 mg PO DAILY #3 tab 09/09/18 09/23/18 Rx Sennosides [Senna] 8.6 mg PO HS PRN #60 tablet 09/09/18 09/23/18 Rx Allergies Allergy/AdvReac Type Severity Reaction Status Date / Time Penicillins Allergy Unknown Verified 09/23/18 14:01 Childhood Physical Exam Vitals: Vital Signs Temp Pulse Resp BP Pulse Ox 09/23/18 13:36 98.3 F 111 H 16 101/68 100 Intake and Output 09/23/18 09/23/18 09/23/18 06:59 14:59 22:59 Other: Weight 67.132 kg PHYSICAL EXAMINATION: GENERAL: The patient is alert and oriented x3, not in any acute distress. Well developed, well nourished. HEENT: Pupils are round and equally reacting to light. EOMI. No scleral icterus. No conjunctival pallor. Normocephalic, atraumatic. No pharyngeal erythema. No t hyromegaly. Patient does have mucositis CARDIOVASCULAR: S1 and S2 present. No murmurs, rubs, or gallops. PULMONARY: Chest is clear to auscultation, no wheezing or crackles. ABDOMEN: Soft, nontender, nondistended, normoactive bowel sounds. No palpable organomegaly. MUSCULOSKELETAL: No joint swelling or deformity. EXTREMITIES: No cyanosis, clubbing, or pedal edema. NEUROLOGICAL: Gross neurological examination did not reveal any focal deficits. SKIN: No rashes. Results CBC & Chem 7: 09/23/18 14:40 09/23/18 14:40 Labs: Abnormal Lab Results - Last 24 Hours (Table) 09/23/18 09/23/18 09/23/18 Range/Units 14:40 14:40 14:40 RBC 3.50 L (3.80-5.40) m/uL Hgb 9.6 L (11.4-16.0) gm/dL Hct 30.7 L (34.0-46.0) % RDW 20.3 H (11.5-15.5) % Plt Count 624 H (150-450) k/uL Lymphocytes # 0.6 L (1.0-4.8) k/uL Chloride 109 H (98-107) mmol/L Carbon Dioxide 21 L (22-30) mmol/L Creatinine 0.50 L (0.52-1.04) mg/dL Magnesium 1.3 L (1.6-2.3) mg/dL Albumin 3.4 L (3.5-5.0) g/dL Urine Protein 1+ H (Negative) Urine Blood Trace H (Negative) Ur Leukocyte Esterase Moderate H (Negative) Urine RBC 10 H (0-5) /hpf Urine WBC 15 H (0-5) /hpf Ur Squamous Epith Cells 7 H (0-4) /hpf Urine Mucus Occasional H (None) /hpf Assessment and Plan Plan: -Nausea vomiting: Secondary to mucositis and possible peptic ulcerations, patient will be started on Protonix also lesion for comfort IV fluids. Be started on lateral liquid diet and advance as tolerated -Mild clinical dehydration. IV fluids as mentioned above Tachycardia secondary to dehydration patient will continue on IV fluids as mentioned above -Gases patient reflux disease -Lung cancer received chemotherapy couple days ago oncology was consulted -Hypertension: Actually hypotensive hold off on antidepressant medications -Hypomagnesemia: Potassium was supplemented Coronary artery disease.
[2018-09-23] MEDS: SODIUM CHLORIDE 0.9% 1,000 ML IV SCH (16:50)
[2018-09-23] MEDS: MAGNESIUM SULFATE-D5W PMX 1 GM in DEXTROSE/WATER 1 100ML.BAG IVPB SCH ×2 (16:51→19:22)
[2018-09-23] MEDS: HYDROmorphone 2 MG TAB PO PRN (19:20)
[2018-09-23] MEDS: PANTOPRAZOLE 40 MG/10 ML VIAL IVP SCH (19:21)
[2018-09-23] MEDS: ATORVASTATIN 80 MG TAB PO SCH (21:21)
[2018-09-23] MEDS: APIXABAN 5 MG TAB PO SCH (21:21)
[2018-09-23] MEDS: MAG HYDROX/AL HYDROX/SIMETH 30 ML, LIDOCAINE VISCOUS 30 ML, diphenhydrAMINE ELIXIR 75 M... PO SCH ×4 (21:25)
[2018-09-24] MEDS: ONDANSETRON ODT 4 MG TAB PO SCH ×4 (00:50→23:33)
[2018-09-24] MEDS: HYDROmorphone 2 MG TAB PO PRN ×4 (00:50→20:20)
[2018-09-24] MEDS: SODIUM CHLORIDE 0.9% 1,000 ML IV SCH ×3 (06:01→23:31)
[2018-09-24] MEDS: MAGNESIUM OXIDE 400 MG TAB PO SCH (08:24)
[2018-09-24] MEDS: APIXABAN 5 MG TAB PO SCH ×2 (08:24→20:20)
[2018-09-24] MEDS: MEGESTROL 400 MG/10 ML CUP PO SCH (08:26)
[2018-09-24] MEDS: MAG HYDROX/AL HYDROX/SIMETH 30 ML, LIDOCAINE VISCOUS 30 ML, diphenhydrAMINE ELIXIR 75 M... PO SCH ×12 (08:26→23:34)
[2018-09-24] MEDS: FOLIC ACID 1 MG TAB PO SCH (08:26)
[2018-09-24] MEDS: PANTOPRAZOLE 40 MG/10 ML VIAL IVP SCH (08:26)
[2018-09-24 10:23] VITALS: BMI 26.2
--- NOTE | 2018-09-24 15:39 | P.PN ---
Subjective 52-year-old female admitted for nausea vomiting Seroquel therapy regarding that patient is feeling well and patient is able to tolerate diet but the patient started having vaginal bleeding. I'm consulting gynecology and FSH TSH will be ordered and the pelvic ultrasound will be ordered. Patient is on Eliquis. Patient and stopped bleeding now because of which are good and continue Eliquis. Constitutional: Denied any fatigue denied any fever. Cardio vascular: denied any chest pain, palpitations Gastrointestinal denied any nausea vomiting Pulmonary: Denied any shortness of breath cough Neurologic denied any new focal deficits All inpatient medications were reviewed and appropriate changes in these medications as dictated in the interval history and assessment and plan. Objective - Vital Signs Vital signs: Vital Signs Temp 98.5 F 09/24/18 12:23 Pulse 88 09/24/18 12:23 Resp 16 09/24/18 12:23 BP 115/79 09/24/18 12:23 Pulse Ox 99 09/24/18 12:23 Intake & Output 09/23/18 09/24/18 09/24/18 18:59 06:59 18:59 Intake Total 1090 800 Balance 1090 800 Weight 67.132 kg 67.132 kg Intake: Intake, IV Titration 500 800 Amount Magnesium Sulfate-D5w Pmx 100 1 gm In Dextrose/Water 1 100ml.bag @ 100 mls/hr IVPB Q1H [facility]INA Rx#: [id number] Sodium Chloride 0.9% 1, 400 800 000 ml @ 100 mls/hr IV . Q10H [facility]INA Rx#:[id number] Oral 590 Other: Voiding Method Toilet Toilet Bedside Commode Bedside Commode # Voids 36 - Exam PHYSICAL EXAMINATION: GENERAL: The patient is alert and oriented x3, not in any acute distress. Well developed, well nourished. HEENT: Pupils are round and equally reacting to light. EOMI. No scleral icterus. No conjunctival pallor. Normocephalic, atraumatic. No pharyngeal erythema. No thyromegaly. Patient does have mucositis CARDIOVASCULAR: S1 and S2 present. No murmurs, rubs, or gallops. PULMONARY: Chest is clear to auscultation, no wheezing or crackles. ABDOMEN: Soft, nontender, nondistended, normoactive bowel sounds. No palpable organomegaly. MUSCULOSKELETAL: No joint swelling or deformity. EXTREMITIES: No cyanosis, clubbing, or pedal edema. NEUROLOGICAL: Gross neurological examination did not reveal any focal deficits. SKIN: No rashes. - Labs CBC & Chem 7: 09/23/18 14:40 09/23/18 14:40 Labs: Microbiology - Last 24 Hours (Table) 09/23/18 14:40 Urine Culture - Preliminary Urine,Voided Assessment and Plan Plan: -Nausea vomiting: Secondary to mucositis and possible peptic ulcerations, patient will be started on Protonix also lesion for comfort IV fluids. Be started on lateral liquid diet and advance as tolerated -Vaginal bleed further workup as mentioned above as patient stopped bleeding now will continue with Eliquis -Mild clinical dehydration. IV fluids as mentioned above, improved now Tachycardia improved with IV fluids Gastroesophageal reflux disease -Lung cancer received chemotherapy couple days ago oncology evaluated the patien t -Hypertension: Coronary artery disease.
--- NOTE | 2018-09-24 16:47 | P.CONS ---
History of Present Illness - Reason for Consult Consult date: 09/24/18 Known Metastatic Cancer Requesting physician: Angel Zuleta - History of Present Illness The patient is a 52-year-old -[place] a complicated past Oncologic histor y. She had presented in 07/28 with a right lung mass, and underwent lobectomy in 08/28 revealing adenocarcinoma of the lung. She was recommended chemotherapy at that time, but did not follow-up. She had somewhat irregular follow-up subsequently with no evidence of recurrent disease until about 07/31. Incidentally in 05/01 she was diagnosed with an early-stage laryngeal cancer that was treated with definitive radiation. In 07/31, the patient presented with pelvic mass, liver lesions, as well as omental masses. She was found to have recurrent adenocarcinoma of the lung on the sciatic fluid cytology, as well as liver biopsy. PD-1 was strongly positive. Initiation of treatment was delayed, due to admission for influenza, during which she was found to have a PE. She was started on anticoagulation with eliquis but was admitted with vaginal bleeding. This improved with supplemental anticoagulation, which was later able to resumed She was again admitted on 08/28/18, with complains of weakness, dehydration and decreased appetite. She did improve with supportive care, and received her first cycle of chemotherapy with carboplatin and Alimta on 08/31/18. She was subsequently discharged. She has had numerous recent admissions. Last September 10 for complaints of weakness, and apparently passed out when getting up from the sofa. She was therefore brought to the emergency room, and admitted for further management. Her Last treatment was Carboplatin almta and Keytruda and she was treated on 09/21/18 (second cycle of chemo first of immunotherapy) Review of Systems A 14 point review of systems assessed and completed and all negative except HPI Past Medical History Past Medical History: Cancer, GERD/Reflux, Hyperlipidemia, Hypertension, Myocardial Infarction ([place]) Additional Past Medical History / Comment(s): BRAIN ANEURSYM, [place] 2012, LUNG CA diagnosed 2014, CARPAL TUNNEL RIGHT WRIST, throat CA dx apr 2018 Last Myocardial Infarction Date:: 04/30/2013 History of Any Multi-Drug Resistant Organisms: None Reported Past Surgical History: Heart Catheterization, Orthopedic Surgery, Tubal Li gation, Uterine Ablation Additional Past Surgical History / Comment(s): ANGIOPLASTY FOR BRAIN ANEURSYM, CARPEL TUNNEL RIGHT WRIST , and laparoscopy, PARTIAL RIGHT LUNG REMOVAL ,PTCA, Past Anesthesia/Blood Transfusion Reactions: No Reported Reaction Past Psychological History: Anxiety, Panic Disorder Smoking Status: Former smoker Past Alcohol Use History: None Reported Past Drug Use History: None Reported - Past Family History Mother Family Medical History: Cancer Father Family Medical History: Cancer Medications and Allergies Home Medications Medication Instructions Recorded Confirmed Type Acetaminophen Tab [Tylenol] 500 mg PO Q6H PRN #30 tablet 08/24/18 09/23/18 Rx Cefuroxime Axetil [Ceftin] 500 mg PO BID 3 Days #14 tab 08/24/18 09/23/18 Rx Folic Acid 1 mg PO DAILY #30 tab 08/24/18 09/23/18 Rx Pantoprazole Sodium [Protonix] 40 mg PO DAILY #30 tablet.dr 08/24/18 09/23/18 Rx Apixaban [Eliquis Starter Pack 5 mg PO DIRECTED 08/30/18 09/23/18 History (for VTE)] Ondansetron [Zofran ODT] 4 mg PO Q8HR 08/30/18 09/23/18 History Acetaminophen Tab [Tylenol] 650 mg PO Q6HR PRN tab 09/01/18 09/23/18 Rx Atorvastatin [Lipitor] 80 mg PO HS tab 09/01/18 09/23/18 Rx Doxycycline [Vibramycin] 100 mg PO BID 7 Days #14 cap 09/01/18 09/23/18 Rx Megestrol [Megace] 400 mg PO DAILY #30 cup 09/01/18 09/23/18 Rx Docusate [Colace] 100 mg PO BID PRN #60 capsule 09/09/18 09/23/18 Rx HYDROmorphone [Dilaudid] 2 mg PO Q6HR PRN 7 Days #28 tab 09/09/18 09/23/18 Rx Magnesium Oxide [Mag-Ox] 400 mg PO DAILY #3 tab 09/09/18 09/23/18 Rx Sennosides [Senna] 8.6 mg PO HS PRN #60 tablet 09/09/18 09/23/18 Rx Allergies Allergy/AdvReac Type Severity Reaction Status Date / Time Penicillins Allergy Unknown Verified 09/23/18 14:01 Childhood Physical Exam Vitals: Vital Signs Temp Pulse Pulse Resp BP BP Pulse Ox 09/24/18 12:23 98.5 F 88 16 115/79 99 09/24/18 05:00 98.7 F 94 16 116/78 100 09/24/18 00:00 85 16 09/23/18 21:20 98.6 F 85 16 116/77 100 09/23/18 16:30 72 12 125/84 100 09/23/18 16:00 70 14 119/83 100 Intake and Output 09/24/18 09/24/18 09/24/18 06:59 14:59 22:59 Intake Total 590 800 Balance 590 800 Intake: Intake, IV Titration 800 Amount Sodium Chloride 0.9% 1, 800 000 ml @ 100 mls/hr IV . Q10H [facility] Rx#:[id number] Oral 590 Other: Voiding Method Toilet Toilet Bedside Commode Bedside Commode # Voids 36 Weight 67.132 kg - Constitutional General appearance: average body habitus, cooperative, mild distress - EENT dry mucus membranes Eyes: anicteric sclerae, EOMI ENT: hearing grossly normal - Neck Neck: no lymphadenopathy - Respiratory Respiratory: bilateral: CTA - Cardiovascular Heart sounds: normal: S1, S2 - Gastrointestinal General gastrointestinal: no absent bowel sounds, no decreased bowel sounds, distended, no hepatomegaly, no hyperactive bowel sounds, normal bowel sounds, no organomegaly, no rigid, no scaphoid, soft, no splenomegaly, tenderness, no umbilical hernia, no ventral hernia - Integumentary Integumentary: normal - Neurologic Neurologic: CNII-XII intact - Musculoskeletal Musculoskeletal: generalized weakness, strength equal bilaterally - Psychiatric Psychiatric: A&O x's 3, appropriate affect, intact judgment & insight Results CBC & Chem 7: 09/23/18 14:40 09/23/18 14:40 Labs: Microbiology - Last 24 Hours (Table) 09/23/18 14:40 Urine Culture - Preliminary Urine,Voided Assessment and Plan Plan: Metastatic lung cancer (metastasis from lung to other site) - Liver and ascites Fluid) - Recent Recurrence with diffuse Metastatic Disease - MRI Brain Reviewed and no evidence of metastatic disease to brain, concern for lacunar infarcts, possibly old, unknown although patient is asymptomatic and will be restarted on anticoagulation after mediport. No further intervention needed at this time related to these findings. - Molecular Testing is PDL-1 Sensitive - Status post cycle 2 of [email or web address] on 09/21/18 Vaginal bleeding - Resolved last Admission and ELiquis was restarted prior to discharge. - This has thus restarted this admission, monitor CBC and transfuse prn - Discussed with Primary team Pulmonary emboli - Diagnosed 07/29/18 - On hold for recurrent vaginal bleeding per primary team. restart when bleeding ceases - Likely will require first chemotherapy as inpatient with her recurrent admission due to her over all metastatic cancer burden. Recurrent Abdominal Ascites: - Continue Therapeutic PRN Paracentesis Normocytic Anemia: - Secondary to recent chemotherapy - Likely component of Vaginal Blood Loss, Iron Deficiency, and Malingnacy Leukocytosis: - Salcido Cultures in progress, recent infection axillary boil/abscess History of Early Stage Laryngeal Cancer Difficulty tolerating PO Intake - IV Hydration, Antiemetics, and treatment of oral thrush initiated - Lens Maker consultation and monitoring of PO intake Weakness: - PT/OT to assess and treat while admitted Plan: - Evaluation by radiation oncology requested - No need for further evaluation by LACE TEARING SUPERVISOR, recheck hemoglobin in am and transfusion support Physician Attest: I have completed the full history and physical and devloped the above impression and plan, agree with dictation, dictated as a scribe
--- NOTE | 2018-09-24 17:38 | US ---
EXAMINATION TYPE: US pelvis complete transvag DATE OF EXAM: 09/24/2018 COMPARISON: 08/15/2018 CLINICAL HISTORY: post menopausal bleed. Hx ovarian cancer, on chemo treatments. Vaginal bleeding. TECHNIQUE: Transvaginal (TV) and Transabdominal (TA) . Transabdominal sonographic images of the pel vis were acquired. Transvaginal sonographic images were medically necessary to better assess the fol lowing anatomy: Endometrium Date of LMP: Unknown EXAM MEASUREMENTS: Uterus: 7.1 x 4.6 x 3.9 cm Endometrial Stripe: 1.2 cm 1. Uterus: Anteverted Limited visualization due to pelvic masses. 2. Endometrium: Appears thickened. 3. Right Ovary: See adnexa notes 4. Left Ovary: Obscured by overlying bowel gas 5. Bilateral Adnexa: Right adnexa mass, unable to determine right ovarian component vs lesion. Enti re structure estimated 8.2 x 5.9 x 5.4 cm, irregular in shape. In left adnexa, tubular fluid collect ion seen 6. Posterior cul-de-sac: no free fluid seen IMPRESSION: Large complex pelvic mass consistent with tumor. This could be smaller than the old ultra sound exam. CT scan is recommended for definitive measurement. No endometrial mass. No free fluid.
[2018-09-24] MEDS: DOCUSATE 100 MG CAP PO SCH (20:20)
[2018-09-24] MEDS: ATORVASTATIN 80 MG TAB PO SCH (20:20)
[2018-09-25] MEDS: HYDROmorphone 2 MG TAB PO PRN ×3 (02:42→15:34)
[2018-09-25 08:01] LABS: ALT 31 U/L (9-52); AST 25 U/L (14-36); Albumin 3.1 g/dL (3.5-5.0); Alkaline Phosphatase 90 U/L (38-126); Anion Gap 7 mmol/L; Blood Urea Nitrogen 5 mg/dL (7-17); Calcium 9.4 mg/dL (8.4-10.2); Carbon Dioxide 20 mmol/L (22-30); Chloride 112 mmol/L (98-107); Glucose 78 mg/dL (74-99); Magnesium 1.6 mg/dL (1.6-2.3); Potassium 4.4 mmol/L (3.5-5.1); Sodium 139 mmol/L (137-145); Total Bilirubin 0.5 mg/dL (0.2-1.3)
[2018-09-25] MEDS: FOLIC ACID 1 MG TAB PO SCH (08:34)
[2018-09-25] MEDS: ONDANSETRON ODT 4 MG TAB PO SCH (08:34)
[2018-09-25] MEDS: PANTOPRAZOLE 40 MG/10 ML VIAL IVP SCH (08:34)
[2018-09-25] MEDS: MEGESTROL 400 MG/10 ML CUP PO SCH (08:34)
[2018-09-25] MEDS: DOCUSATE 100 MG CAP PO SCH (08:35)
[2018-09-25] MEDS: MAGNESIUM OXIDE 400 MG TAB PO SCH (08:35)
[2018-09-25] MEDS: APIXABAN 5 MG TAB PO SCH (08:35)
[2018-09-25 08:37] LABS: Anisocytosis Slight; Basophils % (A) 0 %; Eosinophils # (A) 0.1 k/uL (0-0.7); Eosinophils % (A) 1 %; HCT 29.2 % (34.0-46.0); HGB 9.2 gm/dL (11.4-16.0); Hypochromasia Moderate; Lymphocytes # (A) 0.6 k/uL (1.0-4.8); Lymphocytes % (A) 12 %; MCHC 31.7 g/dL (31.0-37.0); MCV 88.4 fL (80.0-100.0); Mean Platelet Volume 8.2; Monocytes # (A) 0.1 k/uL (0-1.0); Monocytes % (A) 2 %; Neutrophils # (A) 4.5 k/uL (1.3-7.7); Neutrophils % (A) 82 %; Platelet Count 462 k/uL (150-450); Poikilocytosis Slight; RDW 19.8 % (11.5-15.5); WBC 5.4 k/uL (3.8-10.6)
--- NOTE | 2018-09-25 08:41 | P.OBCN ---
History of Present Illness Consult date: 09/25/18 Requesting physician: Angel Zuleta Reason for consult: pelvic mass Chief complaint: Postmenopausal bleeding History of present illness: Norma is a 52-year-old female known to me from approximately 4 years ago when I did a laparoscopy on her. I have not seen her in the last 4 years, apparently yesterday she began having some vaginal bleeding. She relates that she had a similar episode in July when she was diagnosed with esophageal cancer and was switched from 1 anticoagulant to another. At that time apparently she had a CAT scan showing a 3 x 4 cm ovarian mass and elevated CA-125 level. At that time we were not consult. In speaking with her, she relates that she had not had any vaginal bleeding from the time I took her surgery in 2014 until approximately July of this year. She had no further pain or other symptoms similar to what she had at that time. At that time she had hydrosalpinx and was treated surgically. At that time grossly her ovaries appeared normal. As she was only 47 years old there was no reason to take her ovaries out at that time she did have fibroid uterus as well that was noted. She was poorly diagnosed with lung cancer shortly thereafter, and has undergone radiation and chemotherapy for same. I did order an ultrasound and lab work. Lab work is pending including a repeat CA-125 and CA-19-9. Ultrasound showed a grossly enlarged ovarian mass that appears bigger than what is stated on the CAT scan from 2 months ago. On gynecologic physical exam abdomen is soft there is some firmness in the right adnexa, on bimanual exam there is complete fullness of her pelvis with essentially frozen pelvis and fullness on the right side depressing the uterus slightly to the left. Assessment pelvic mass suspect ovarian in origin however other possibilities do exist. I have not seen the paracentesis result from July slime unclear whether or not the official diagnosis was made at that time. She does have a thickened endometrium on ultrasound but realistically if anything was to be done she should be transferred to [facility] or other [facility] oncologist for their evaluation and recommendation. Plan Will make every effort to speak with Dr. Bernard who is her oncologist today to at least assess what further options may be available to her. Past Medical History Past Medical History: Cancer, GERD/Reflux, Hyperlipidemia, Hypertension, Myocardial Infarction ([place]) Additional Past Medical History / Comment(s): BRAIN ANEURSYM, [place] 2012, LUNG CA diagnosed 2014, CARPAL TUNNEL RIGHT WRIST, throat CA dx apr 2018 Last Myocardial Infarction Date:: 04/30/2013 History of Any Multi-Drug Resistant Organisms: None Reported Past Surgical History: Heart Catheterization, Orthopedic Surgery, Tubal Ligation, Uterine Ablation Additional Past Surgical History / Comment(s): ANGIOPLASTY FOR BRAIN ANEURSYM, CARPEL TUNNEL RIGHT WRIST , and laparoscopy, PARTIAL RIGHT LUNG REMOVAL ,PTCA, Past Anesthesia/Blood Transfusion Reactions: No Reported Reaction Past Psychological History: Anxiety, Panic Disorder Smoking Status: Former smoker Past Alcohol Use History: None Reported Past Drug Use History: None Reported - Past Family History Mother Family Medical History: Cancer Father Family Medical History: Cancer Medications and Allergies Home Medications Medication Instructions Recorded Confirmed Type Acetaminophen Tab [Tylenol] 500 mg PO Q6H PRN #30 tablet 08/24/18 09/23/18 Rx Cefuroxime Axetil [Ceftin] 500 mg PO BID 3 Days #14 tab 08/24/18 09/23/18 Rx Folic Acid 1 mg PO DAILY #30 tab 08/24/18 09/23/18 Rx Pantoprazole Sodium [Protonix] 40 mg PO DAILY #30 tablet.dr 08/24/18 09/23/18 Rx Apixaban [Eliquis Starter Pack 5 mg PO DIRECTED 08/30/18 09/23/18 History (for VTE)] Ondansetron [Zofran ODT] 4 mg PO Q8HR 08/30/18 09/23/18 History Acetaminophen Tab [Tylenol] 650 mg PO Q6HR PRN tab 09/01/18 09/23/18 Rx Atorvastatin [Lipitor] 80 mg PO HS tab 09/01/18 09/23/18 Rx Doxycycline [Vibramycin] 100 mg PO BID 7 Days #14 cap 09/01/18 09/23/18 Rx Megestrol [Megace] 400 mg PO DAILY #30 cup 09/01/18 09/23/18 Rx Docusate [Colace] 100 mg PO BID PRN #60 capsule 09/09/18 09/23/18 Rx HYDROmorphone [Dilaudid] 2 mg PO Q6HR PRN 7 Days #28 tab 09/09/18 09/23/18 Rx Magnesium Oxide [Mag-Ox] 400 mg PO DAILY #3 tab 09/09/18 09/23/18 Rx Sennosides [Senna] 8.6 mg PO HS PRN #60 tablet 09/09/18 09/23/18 Rx Allergies Allergy/AdvReac Type Severity Reaction Status Date / Time Penicillins Allergy Unknown Verified 09/23/18 14:01 Childhood Exam Osteopathic Statement: *. No significant issues noted on an osteopathic structural exam other than those noted in the History and Physical/Consult. Vital Signs Temp Pulse Resp BP Pulse Ox 09/25/18 05:00 98.8 F 89 17 114/72 100 09/24/18 23:51 86 16 09/24/18 21:00 98.4 F 86 16 119/81 100 09/24/18 12:23 98.5 F 88 16 115/79 99 Intake and Output 09/24/18 09/25/18 09/25/18 22:59 06:59 14:59 Intake Total 1200 800 Balance 1200 800 Intake: Intake, IV Titration 800 800 Amount Sodium Chloride 0.9% 1, 800 800 000 ml @ 100 mls/hr IV . Q10H [facility] Rx#:[id number] Oral 400 Other: Voiding Method Toilet Toilet Bedside Commode Bedside Commode # Voids 1 2 Results Result Diagrams: 09/23/18 14:40 09/25/18 07:25 Abnormal Lab Results - Last 24 Hours (Table) 09/25/18 Range/Units 07:25 Chloride 112 H (98-107) mmol/L Carbon Dioxide 20 L (22-30) mmol/L BUN 5 L (7-17) mg/dL Creatinine 0.51 L (0.52-1.04) mg/dL Total Protein 6.0 L (6.3-8.2) g/dL Albumin 3.1 L (3.5-5.0) g/dL Microbiology - Last 24 Hours (Table) 09/23/18 14:40 Urine Culture - Preliminary Urine,Voided Gram Neg Bacilli 09/23/18 14:40 Blood Culture - Preliminary Blood No Growth after 24 hours
--- NOTE | 2018-09-25 11:08 | P.CONS ---
History of Present Illness - Reason for Consult Consult date: 09/24/18 vaginal bleeding Requesting physician: Miguel Fatima - Chief Complaint vaginal bleeding - History of Present Illness The patient is a 52-year-old female with a history of an early stage adenocarcinoma of the right lower lung status post lobectomy in July 2015. She was absolutely diagnosed with a stage II larynx cancer treated with definitive radiotherapy finishing in May 2018. Unfortunately, over the past couple months, the patient was diagnosed with metastatic adenocarcinoma from her lung, with disease found in the liver and malignant ascites. The patient is status post 2 cycles of chemotherapy, and was recently hospitalized for weakness. During the patient's previous hospital stay in August, she was complaining of vaginal bleeding with passage of clots. She briefly had her Eliquis held, and the bleeding seemed to resolve even after this was resumed. She has now completed 2 cycles of chemotherapy, and during yesterday evening she unfortunately had had a new episode of vaginal bleeding. She is not reporting significant pain in the lower abdomen at this time. Ultrasound exam on September 24 revealed a right adnexal mass, measuring 8 x 6 cm. There were unable to discern the ovarian component versus the lesion. She reports that she has not had any further bleeding today. Review of Systems Constitutional: Denies chills, Denies fever Eyes: bilateral blurred vision Ears, nose, mouth and throat: Denies dysphagia Cardiovascular: Denies chest pain Respiratory: Denies cough, Denies dyspnea Gastrointestinal: Reports bloating, Denies abdominal pain Genitourinary: Reports abnormal vaginal bleeding, Denies flank pain Menstruation: Reports postmenopausal Musculoskeletal: Denies low back pain Integumentary: Denies rash Neurological: Denies double vision, Denies headaches Psychiatric: Denies confusion, Denies depression Past Medical History Past Medical History: Cancer, GERD/Reflux, Hyperlipidemia, Hypertension, Myocardial Infarction ([place]) Additional Past Medical History / Comment(s): BRAIN ANEURSYM, [place] 2012, LUNG CA diagnosed 2014, CARPAL TUNNEL RIGHT WRIST, throat CA dx apr 2018 Last Myocardial Infarction Date:: 04/30/2013 History of Any Multi-Drug Resistant Organisms: None Reported Past Surgical History: Heart Catheterization, Orthopedic Surgery, Tubal Ligation, Uterine Ablation Additional Past Surgical History / Comment(s): ANGIOPLASTY FOR BRAIN ANEURSYM, CARPEL TUNNEL RIGHT WRIST , and laparoscopy, PARTIAL RIGHT LUNG REMOVAL ,PTCA, Past Anesthesia/Blood Transfusion Reactions: No Reported Reaction Past Psychological History: Anxiety, Panic Disorder Smoking Status: Former smoker Past Alcohol Use History: None Reported Past Drug Use History: None Reported - Past Family History Mother Family Medical History: Cancer Father Family Medical History: Cancer Medications and Allergies Home Medications Medication Instructions Recorded Confirmed Type Acetaminophen Tab [Tylenol] 500 mg PO Q6H PRN #30 tablet 08/24/18 09/23/18 Rx Cefuroxime Axetil [Ceftin] 500 mg PO BID 3 Days #14 tab 08/24/18 09/23/18 Rx Folic Acid 1 mg PO DAILY #30 tab 08/24/18 09/23/18 Rx Pantoprazole Sodium [Protonix] 40 mg PO DAILY #30 tablet. 08/24/18 09/23/18 Rx Apixaban [Eliquis Starter Pack 5 mg PO DIRECTED 08/30/18 09/23/18 History (for VTE)] Ondansetron [Zofran ODT] 4 mg PO Q8HR 08/30/18 09/23/18 History Acetaminophen Tab [Tylenol] 650 mg PO Q6HR PRN tab 09/01/18 09/23/18 Rx Atorvastatin [Lipitor] 80 mg PO HS tab 09/01/18 09/23/18 Rx Doxycycline [Vibramycin] 100 mg PO BID 7 Days #14 cap 09/01/18 09/23/18 Rx Megestrol [Megace] 400 mg PO DAILY #30 cup 09/01/18 09/23/18 Rx Docusate [Colace] 100 mg PO BID PRN #60 capsule 09/09/18 09/23/18 Rx HYDROmorphone [Dilaudid] 2 mg PO Q6HR PRN 7 Days #28 tab 09/09/18 09/23/18 Rx Magnesium Oxide [Mag-Ox] 400 mg PO DAILY #3 tab 09/09/18 09/23/18 Rx Sennosides [Senna] 8.6 mg PO HS PRN #60 tablet 09/09/18 09/23/18 Rx Allergies Allergy/AdvReac Type Severity Reaction Status Date / Time Penicillins Allergy Unknown Verified 09/23/18 14:01 Childhood Physical Exam Vitals: Vital Signs Temp Pulse Resp BP Pulse Ox 09/25/18 05:00 98.8 F 89 17 114/72 100 09/24/18 23:51 86 16 09/24/18 21:00 98.4 F 86 16 119/81 100 09/24/18 12:23 98.5 F 88 16 115/79 99 Intake and Output 09/24/18 09/25/18 09/25/18 22:59 06:59 14:59 Intake Total 1200 800 Balance 1200 800 Intake: Intake, IV Titration 800 800 Amount Sodium Chloride 0.9% 1, 800 800 000 ml @ 100 mls/hr IV . Q10H [facility] Rx#:[id number] Oral 400 Other: Voiding Method Toilet Toilet Toilet Bedside Commode Bedside Commode Bedside Commode # Voids 1 2 - Constitutional General appearance: no acute distress - EENT Eyes: EOMI, PERRLA ENT: NA/AT - Neck Neck: no lymphadenopathy - Respiratory Respiratory: right: diminished, left: CTA - Cardiovascular Rhythm: regular - Gastrointestinal General gastrointestinal: no distended, no tenderness - Integumentary Integumentary: no calor - Neurologic Neurologic: CNII-XII intact - Musculoskeletal Musculoskeletal: no generalized weakness - Psychiatric Psychiatric: A&O x's 3, appropriate affect Results CBC & Chem 7: 09/25/18 07:25 09/25/18 07:25 Labs: Abnormal Lab Results - Last 24 Hours (Table) 09/25/18 09/25/18 Range/Units 07:25 07:25 RBC 3.30 L (3.80-5.40) m/uL Hgb 9.2 L (11.4-16.0) gm/dL Hct 29.2 L (34.0-46.0) % RDW 19.8 H (11.5-15.5) % Plt Count 462 H (150-450) k/uL Lymphocytes # 0.6 L (1.0-4.8) k/uL Chloride 112 H (98-107) mmol/L Carbon Dioxide 20 L (22-30) mmol/L BUN 5 L (7-17) mg/dL Creatinine 0.51 L (0.52-1.04) mg/dL Total Protein 6.0 L (6.3-8.2) g/dL Albumin 3.1 L (3.5-5.0) g/dL Microbiology - Last 24 Hours (Table) 09/23/18 14:40 Urine Culture - Preliminary Urine,Voided Gram Neg Bacilli 09/23/18 14:40 Blood Culture - Preliminary Blood No Growth after 24 hours US - abdomen: report reviewed Assessment and Plan Assessment: The patient is a 52-year-old female with a history of an early stage adenocarcinoma of the right lower lung status post lobectomy in July 2015. She was absolutely diagnosed with a stage II larynx cancer treated with definitive radiotherapy finishing in May 2018. Unfortunately, over the past couple mon s, the patient was diagnosed with metastatic adenocarcinoma from her lung, with disease found in the liver and malignant ascites. The patient is status post 2 cycles of chemotherapy, and was recently hospitalized for weakness. She has now had recurrence of vaginal bleeding, which was a problem for her during a hospitalization last month. Plan: 1. Vaginal bleeding: Based on previous laparoscopy, the patient had no evidence of ovarian tumors 4-5 years ago. Also, based on previous imaging, including as recent as 01/2018 - the patient had no evidence of adnexal mas s/ovarian tumor. Subsequent with her being diagnosed with metastatic adenocarcinoma of the lung with disease involving mediastinal adenopathy, liver metastases and malignant ascites, the patient has now been found to have a large right adnexal cystic mass. This was evident on her restaging PET-CT from 07/2018. While on imaging studies this may have an appearance more similar to an ovarian primary, my feeling is that in the setting of malignant ascites and liver disease from her lung cancer, this is more likely a drop metastasis in the pelvis. This is the most likely cause of her bleeding - likely via mass effect on the uterus. Based on Fabric Sourcer-evaluation the patient has significant right pelvic mass with mass effect on the uterus to the left. I was unable to do a pelvic as the patient w as undergoing a TVUS at the completion of my consultation. The patient has had recent PE and therefore is currently on Eliquis. Initially, this bleeding resolved without intervention and she was able to continue chemotherapy. Now that she has had a second episode however, it may be prudent to have her undergo a short course of palliative radiotherapy to this region. The patient is reporting that these symptoms seem to have resolved again. She just finished her second cycle of chemotherapy and therefore the timing is good to do a short course of RT. I will discuss this in more detail with the patient, especially if she continues to have bleeding. If she is discharged today - as she is feeling better from her dehydration, she can see me in the clinic [place] or Monday this week to arrange. 2. Metastatic NSCLC: Patient s/p 2 cycles of chemotherapy, has high PDL1 expression and likely to respond well.
[2018-09-25] MEDS: MAG HYDROX/AL HYDROX/SIMETH 30 ML, LIDOCAINE VISCOUS 30 ML, diphenhydrAMINE ELIXIR 75 M... PO SCH ×4 (12:04)
[2018-09-25 12:12] VITALS: BP 100/71; PULSE 96; RESP 18; TEMP 98
--- NOTE | 2018-09-25 12:33 | P.PN ---
Subjective Progress Note Date: 09/25/18 Principal diagnosis: Metastatic Cancer Her vaginal bleeding appears to have resolved, and radiation oncology has seen Objective - Vital Signs Vital signs: Vital Signs Temp 98.0 F 09/25/18 11:11 Pulse 96 09/25/18 11:11 Resp 18 09/25/18 11:11 BP 100/71 09/25/18 11:11 Pulse Ox 100 09/25/18 11:11 Intake & Output 09/24/18 09/25/18 09/25/18 18:59 06:59 18:59 Intake Total 800 2000 Balance 800 2000 Weight 67.132 kg Intake: Intake, IV Titration 800 1600 Amount Sodium Chloride 0.9% 1, 800 1600 000 ml @ 100 mls/hr IV . Q10H NAINA Rx#:[id number] Oral 400 Other: Voiding Method Toilet Toilet Toilet Bedside Commode Bedside Commode Bedside Commode # Voids 2 - Exam - Constitutional General appearance: average body habitus, cooperative, mild distress - EENT dry mucus membranes Eyes: anicteric sclerae, EOMI ENT: hearing grossly normal - Neck Neck: no lymphadenopathy - Respiratory Respiratory: bilateral: CTA - Cardiovascular Heart sounds: normal: S1, S2 - Gastrointestinal General gastrointestinal: no absent bowel sounds, no decreased bowel sounds, distended, no hepatomegaly, no hyperactive bowel sounds, normal bowel sounds, no organomegaly, no rigid, no scaphoid, soft, no splenomegaly, tenderness, no umbil ical hernia, no ventral hernia - Integumentary Integumentary: normal - Neurologic Neurologic: CNII-XII intact - Musculoskeletal Musculoskeletal: generalized weakness, strength equal bilaterally - Psychiatric Psychiatric: A&O x's 3, appropriate affect, intact judgment & insight - Labs CBC & Chem 7: 09/25/18 07:25 09/25/18 07:25 Labs: Abnormal Lab Results - Last 24 Hours (Table) 09/25/18 09/25/18 Range/Units 07:25 07:25 RBC 3.30 L (3.80-5.40) m/uL Hgb 9.2 L (11.4-16.0) gm/dL Hct 29.2 L (34.0-46.0) % RDW 19.8 H (11.5-15.5) % Plt Count 462 H (150-450) k/uL Lymphocytes # 0.6 L (1.0-4.8) k/uL Chloride 112 H (98-107) mmol/L Carbon Dioxide 20 L (22-30) mmol/L BUN 5 L (7-17) mg/dL Creatinine 0.51 L (0.52-1.04) mg/dL Total Protein 6.0 L (6.3-8.2) g/dL Albumin 3.1 L (3.5-5.0) g/dL Microbiology - Last 24 Hours (Table) 09/23/18 14:40 Urine Culture - Preliminary Urine,Voided Gram Neg Bacilli 09/23/18 14:40 Blood Culture - Preliminary Blood No Growth after 24 hours Assessment and Plan Plan: Metastatic lung cancer (metastasis from lung to other site) - Liver and ascites Fluid) - Recent Recurrence with diffuse Metastatic Disease - MRI Brain Reviewed and no evidence of metastatic disease to brain, concern for lacunar infarcts, possibly old, unknown although patient is asymptomatic and will be restarted on anticoagulation after mediport. No further intervention needed at this time related to these findings. - Molecular Testing is PDL-1 Sensitive - Status post cycle 2 of [email or web address] on 09/21/18 Vaginal bleeding: Resolved - Resolved last Admission and ELiquis was restarted prior to discharge. - This has thus restarted this admission, monitor CBC and transfuse prn - Discussed with Primary team - This has resolved Pulmonary emboli - Diagnosed 07/29/18 - Eliquis restarted - Likely will require first chemotherapy as inpatient with her recurrent admission due to her over all metastatic cancer burden. Recurrent Abdominal Ascites: - Continue Therapeutic PRN Paracentesis Normocytic Anemia: - Secondary to recent chemotherapy - Likely component of Vaginal Blood Loss, Iron Deficiency, and Malingnacy Leukocytosis: - Salcido Cultures in progress, recent infection axillary boil/abscess History of Early Stage Laryngeal Cancer Difficulty tolerating PO Intake - IV Hydration, Antiemetics, and treatment of oral thrush initiated - [employer] consultation and monitoring of PO intake Weakness: - PT/OT to assess and treat while admitted Plan: - Bleeding has resolved without intervention, as it did previously. She is in between chemotherapy cycle and would be a good tme to undergo short course of radiation to decrease risk of future bleeding - Patient will follow-up in office at discharge and plan to stay on schedule with chemo - OK for discharge from oncology standpoint
--- NOTE | 2018-09-25 17:30 | P.DS ---
Providers Date of admission: 09/23/18 15:48 Attending physician: Angel Zuleta Consults: 09/23/18 16:35 Consult Physician Routine Consulting Provider: Miguel Fatima Consult Reason/Comments: lung cancer Do you want consulting provider notified?: Yes 09/24/18 14:46 Consult Physician Routine Consulting Provider: Guido Alejandra Consult Reason/Comments: vaginal bleed Do you want consulting provider notified?: Yes 09/24/18 22:24 Consult Physician Routine Consulting Provider: Devon Gunter Consult Reason/Comments: metastatic cancer Do you want consulting provider notified?: Yes, Notify in am Primary care physician: [facility] Course: 52-year-old female admitted for nausea vomiting Seroquel therapy regarding that patient is feeling well and patient is able to tolerate diet but the patient started having vaginal bleeding. I'm consulting gynecology and FSH TSH will be ordered and the pelvic ultrasound will be ordered. Patient is on Eliquis. Patient and stopped bleeding now because of which are good and continue Eliquis. 09/25/2018 Patient was evaluated by gynecology. Patient has an ovarian mass which is known because of which are not doing any further intervention patient is eating well will be discharged today. PHYSICAL EXAMINATION: GENERAL: The patient is alert and oriented x3, not in any acute distress. Well developed, well nourished. HEENT: Pupils are round and equally reacting to light. EOMI. No scleral icterus. No conjunctival pallor. Normocephalic, atraumatic. No pharyngeal erythema. No thyromegaly. Patient does have mucositis CARDIOVASCULAR: S1 and S2 present. No murmurs, rubs, or gallops. PULMONARY: Chest is clear to auscultation, no wheezing or crackles. ABDOMEN: Soft, nontender, nondistended, normoactive bowel sounds. No palpable organomegaly. MUSCULOSKELETAL: No joint swelling or deformity. EXTREMITIES: No cyanosis, clubbing, or pedal edema. NEUROLOGICAL: Gross neurological examination did not reveal any focal deficits. SKIN: No rashes. Assessment and Plan Plan: -Nausea vomiting: Secondary to mucositis and possible peptic ulcerations. -Vaginal bleed further workup as mentioned above as patient stopped bleeding now will continue with Eliquis -Mild clinical dehydration. IV fluids as mentioned above, improved now Tachycardia improved with IV fluids Gastroesophageal reflux disease -Lung cancer received chemotherapy couple days ago oncology evaluated the patient -Hypertension: Coronary artery disease. Patient Condition at Discharge: Stable Plan - Discharge Summary New Discharge Prescriptions: New Nystatin 100,000 Unit/ml Susp [Mycostatin Oral Susp] 3,000,000 unit PO TID #30 cup Lidocaine Viscous [Xylocaine Viscous 2%] 30 ml PO TID #300 ml Continue Pantoprazole Sodium [Protonix] 40 mg PO DAILY #30 tablet. Acetaminophen Tab [Tylenol] 500 mg PO Q6H PRN #30 tablet PRN Reason: Pain Folic Acid 1 mg PO DAILY #30 tab Apixaban [Eliquis Starter Pack (for VTE)] 5 mg PO DIRECTED Ondansetron [Zofran ODT] 4 mg PO Q8HR Atorvastatin [Lipitor] 80 mg PO HS tab Megestrol [Megace] 400 mg PO DAILY #30 cup Acetaminophen Tab [Tylenol] 650 mg PO Q6HR PRN tab PRN Reason: Mild Pain Or Fever > 100.5 HYDROmorphone [Dilaudid] 2 mg PO Q6HR PRN 7 Days #28 tab PRN Reason: Pain Magnesium Oxide [Mag-Ox] 400 mg PO DAILY #3 tab Docusate [Colace] 100 mg PO BID PRN #60 capsule PRN Reason: Constipation Sennosides [Senna] 8.6 mg PO HS PRN #60 tablet PRN Reason: Constipation Discontinued Cefuroxime Axetil [Ceftin] 500 mg PO BID 3 Days #14 tab Doxycycline [Vibramycin] 100 mg PO BID 7 Days #14 cap Discharge Medication List Acetaminophen Tab [Tylenol] 500 mg PO Q6H PRN #30 tablet 08/24/18 [Rx] Folic Acid 1 mg PO DAILY #30 tab 08/24/18 [Rx] Pantoprazole Sodium [Protonix] 40 mg PO DAILY #30 tablet. 08/24/18 [Rx] Apixaban [Eliquis Starter Pack (for VTE)] 5 mg PO DIRECTED 08/30/18 [History] Ondansetron [Zofran ODT] 4 mg PO Q8HR 08/30/18 [History] Acetaminophen Tab [Tylenol] 650 mg PO Q6HR PRN tab 09/01/18 [Rx] Atorvastatin [Lipitor] 80 mg PO HS tab 09/01/18 [Rx] Megestrol [Megace] 400 mg PO DAILY #30 cup 09/01/18 [Rx] Docusate [Colace] 100 mg PO BID PRN #60 capsule 09/09/18 [Rx] HYDROmorphone [Dilaudid] 2 mg PO Q6HR PRN 7 Days #28 tab 09/09/18 [Rx] Magnesium Oxide [Mag-Ox] 400 mg PO DAILY #3 tab 09/09/18 [Rx] Sennosides [Senna] 8.6 mg PO HS PRN #60 tablet 09/09/18 [Rx] Lidocaine Viscous [Xylocaine Viscous 2%] 30 ml PO TID #300 ml 09/25/18 [Rx] Nystatin 100,000 Unit/ml Susp [Mycostatin Oral Susp] 3,000,000 unit PO TID #30 cup 09/25/18 [Rx] Follow up Appointment(s)/Referral(s): [facility], [NON-STAFF] - 1 Week Latisha Ziegler MD [Primary Care Provider] - 10/04/18 11:15 am Patient Instructions/Handouts: Nystatin (By mouth), Lidocaine (Into the mouth), Dehydration (DC), Weakness (DC), Hypomagnesemia (DC) Activity/Diet/Wound Care/Special Instructions: Diet as tolerated Activity as tolerated Discharge Disposition: HOME WITH HOME HEALTH SERVICES
[2018-09-26] MEDS ORDERED: PANTOPRAZOLE 40 MG TABLET PO SCH (09:00)
== END 2018-09-25 17:05 | disposition home health service (06) ==
LOC: EC 13:22 → INTOOBSV 15:48 → 3NMEDONC 15:48 → UNDODISIN 09-25 17:05
PROVIDERS: ADMIT Internal Medicine; ATTEND Internal Medicine
DX: K12.30 Oral mucositis (ulcerative), unspecified (principal); C34.31 Malignant neoplasm of lower lobe, right bronchus or lung; C78.7 Secondary malignant neoplasm of liver and intrahepatic bile duct; C78.1 Secondary malignant neoplasm of mediastinum; R18.0 Malignant ascites; Z87.891 Personal history of nicotine dependence; Z85.21 Personal history of malignant neoplasm of larynx; Z92.3 Personal history of irradiation; E11.9 Type 2 diabetes mellitus without complications; E78.5 Hyperlipidemia, unspecified; E83.42 Hypomagnesemia; E86.0 Dehydration; I95.9 Hypotension, unspecified; F41.0 Panic disorder [episodic paroxysmal anxiety]; I10 Essential (primary) hypertension; I25.10 Atherosclerotic heart disease of native coronary artery without angina pectoris; I25.2 Old myocardial infarction; R97.1 Elevated cancer antigen 125 [CA 125]; K21.9 Gastro-esophageal reflux disease without esophagitis; N83.9 Noninflammatory disorder of ovary, fallopian tube and broad ligament, unspecified; N95.0 Postmenopausal bleeding; Z79.01 Long term (current) use of anticoagulants; Z79.891 Long term (current) use of opiate analgesic; Z79.899 Other long term (current) drug therapy; Z85.01 Personal history of malignant neoplasm of esophagus; Z90.2 Acquired absence of lung [part of]; Z92.21 Personal history of antineoplastic chemotherapy; R00.0 Tachycardia, unspecified; D64.81 Anemia due to antineoplastic chemotherapy; T45.1X5A Adverse effect of antineoplastic and immunosuppressive drugs, initial encounter; Z86.711 Personal history of pulmonary embolism; D72.829 Elevated white blood cell count, unspecified; Z88.0 Allergy status to penicillin; Z53.9 Procedure and treatment not carried out, unspecified reason; Z98.61 Coronary angioplasty status; Z80.9 Family history of malignant neoplasm, unspecified
CPT/HCPCS: 96376 ×2; 96361 ×3; 96366; 96375 ×3; 96365; 99285; 36415; 93005; 80053 ×2; 86304; 83001; 83002; 82670; 83605; 83735 ×2; 84484; 85025 ×2; 85610; 85730; 81001; 87040; 86301; 87086; 87077; 87186; 71046; 76856; 76830; G0378 ×3; J2405; J3475; J1642; S0179 ×2; C9113 ×3; J1170

== ENCOUNTER 2018-09-29 08:12 | Emergency (ER) | payer OTHER ==
[2018-09-29] MEDS ORDERED: SODIUM CHLORIDE 0.9% 1,000 ML IV STA ×2 (08:31→09:02)
[2018-09-29] MEDS ORDERED: HYDROmorphone 1 MG/ML 1 ML SYRINGE IVP STA (08:44)
[2018-09-29 09:11] LABS: Appearance,Urine Cloudy (Clear); Bilirubin,Urine Negative (Negative); Blood,Urine Large (Negative); Color,Urine Light Red; Glucose,Urine (UA) Negative (Negative); Ketones,Urine Trace (Negative); Leukocyte Esterase,Urine Small (Negative); Mucus,Urine Many /hpf; Nitrite,Urine Negative (Negative); PH, Urine 6.5 (5.0-8.0); Protein,Urine 2+ (Negative); RBC,Urine >182 /hpf (0-5); Specific Gravity,Urine 1.026 (1.001-1.035); Squamous Epithelial Cell,Urine 4 /hpf (0-4); WBC,Urine 13 /hpf (0-5)
[2018-09-29 09:18] LABS: Anisocytosis Slight; HCT 32.2 % (34.0-46.0); HGB 10.6 gm/dL (11.4-16.0); Hypochromasia Slight; MCH 28.3 pg (25.0-35.0); MCHC 32.8 g/dL (31.0-37.0); MCV 86.3 fL (80.0-100.0); Mean Platelet Volume 7.4; Platelet Count 236 k/uL (150-450); Poikilocytosis Slight; RBC 3.73 m/uL (3.80-5.40); RDW 19.3 % (11.5-15.5); WBC 2.7 k/uL (3.8-10.6)
[2018-09-29 09:20] LABS: ALT 34 U/L (9-52); AST 34 U/L (14-36); Albumin 3.6 g/dL (3.5-5.0); Alkaline Phosphatase 110 U/L (38-126); Amylase 52 U/L (30-110); Anion Gap 13 mmol/L; Blood Urea Nitrogen 8 mg/dL (7-17); Calcium 9.5 mg/dL (8.4-10.2); Carbon Dioxide 17 mmol/L (22-30); Chloride 108 mmol/L (98-107); Glucose 101 mg/dL (74-99); Lipase 49 U/L (23-300); Sodium 138 mmol/L (137-145); Total Bilirubin 0.5 mg/dL (0.2-1.3); Total Protein 6.9 g/dL (6.3-8.2)
[2018-09-29 09:43] LABS: Lymphocytes # (M) 0.49 k/uL (1.0-4.8); Monocytes # (M) 0.41 k/uL (0-1.0); Neutrophils # (M) 1.81 k/uL (1.3-7.7); Neutrophils % (M) 67 %; Nucleated Red Blood Cells 0 /100 WBC (0-0); Total Cells Counted 100
[2018-09-29 10:05] LABS: Partial Thromboplastin Time 26.7 sec (22.0-30.0); Prothrombin Time 11.1 sec (9.0-12.0)
--- NOTE | 2018-09-29 10:15 | ED ---
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 Patient last received chemotherapy 8 days ago. Patient today presents for abdominal pain. States that this has been ongoing for quite some time. States it is generalized in nature. Patient has had vaginal bleeding since August and had her Eliquis held which then resolved the bleeding. Patient was restarted on blood thinners with a goal of keeping platelets above 50,000. She began to have vaginal bleeding again about one week ago. Ultrasound was done in-patient which did show a right adnexal mass measuring 8 x 6 cm. Patient states the bleeding is very light. Patient states she feels dehydrated as well.Patient has no other complaints at this time including shortness of breath, chest pain, nausea or vomiting, headache, or visual changes. - Related Data Home Medications Medication Instructions Recorded Confirmed Ondansetron [Zofran ODT] 4 mg PO Q8HR 08/30/18 09/29/18 Apixaban [Eliquis] 5 mg PO BID 09/29/18 09/29/18 Previous Rx's Medication Instructions Recorded Folic Acid 1 mg PO DAILY #30 tab 08/24/18 Pantoprazole Sodium [Protonix] 40 mg PO DAILY #30 tablet. 08/24/18 Acetaminophen Tab [Tylenol] 650 mg PO Q6HR PRN tab 09/01/18 Atorvastatin [Lipitor] 80 mg PO HS tab 09/01/18 Megestrol [Megace] 400 mg PO DAILY #30 cup 09/01/18 Docusate [Colace] 100 mg PO BID PRN #60 capsule 09/09/18 HYDROmorphone [Dilaudid] 2 mg PO Q6HR PRN 7 Days #28 tab 09/09/18 Magnesium Oxide [Mag-Ox] 400 mg PO DAILY #3 tab 09/09/18 Sennosides [Senna] 8.6 mg PO HS PRN #60 tablet 09/09/18 Lidocaine Viscous [Xylocaine 30 ml PO TID #300 ml 09/25/18 Viscous 2%] Nystatin 100,000 Unit/ml Susp 3,000,000 unit PO TID #30 cup 09/25/18 [Mycostatin Oral Susp] Allergies Allergy/AdvReac Type Severity Reaction Status Date / Time Penicillins Allergy Unknown Verified 09/29/18 09:46 Childhood Review of Systems ROS Statement: Those systems with pertinent positive or pertinent negative responses have been documented in the HPI. ROS Other: All systems not noted in ROS Statement are negative. Past Medical History Past Medical History: Cancer, GERD/Reflux, Hyperlipidemia, Hypertension, Myocardial Infarction (CO) Additional Past Medical History / Comment(s): BRAIN ANEURSYM, CO 2012, LUNG CA diagnosed 2014, CARPAL TUNNEL RIGHT WRIST, throat CA dx apr 2018 Last Myocardial Infarction Date:: 04/30/2013 History of Any Multi-Drug Resistant Organisms: None Reported Past Surgical History: Heart Catheterization, Orthopedic Surgery, Tubal Ligation, Uterine Ablation Additional Past Surgical History / Comment(s): ANGIOPLASTY FOR BRAIN ANEURSYM, CARPEL TUNNEL RIGHT WRIST , and laparoscopy, PARTIAL RIGHT LUNG REMOVAL ,PTCA, Past Anesthesia/Blood Transfusion Reactions: No Reported Reaction Past Psychological History: Anxiety, Panic Disorder Smoking Status: Former smoker Past Alcohol Use History: None Reported Past Drug Use History: None Reported - Past Family History Mother Family Medical History: Cancer Father Family Medical History: Cancer General Exam Limitations: no limitations General appearance: alert, in no apparent distress Head exam: Present: atraumatic, normocephalic, normal inspection Eye exam: Present: normal appearance, PERRL, EOMI. Absent: scleral icterus, conjunctival injection, periorbital swelling ENT exam: Present: normal exam, mucous membranes moist Neck exam: Present: normal inspection, full ROM. Absent: tenderness, meningismus, lymphadenopathy Respiratory exam: Present: normal lung sounds bilaterally. Absent: respiratory distress, wheezes, rales, rhonchi, stridor Cardiovascular Exam: Present: regular rate, normal rhythm, normal heart sounds. Absent: systolic murmur, diastolic murmur, rubs, gallop, clicks GI/Abdominal exam: Present: soft, tenderness (Generalized tenderness noted of the abdomen worse in the right lower quadrant), normal bowel sounds. Absent: distended, guarding, rebound, rigid Neurological exam: Present: alert, oriented X3, CN II-XII intact Psychiatric exam: Present: normal affect, normal mood Course Vital Signs 09/29/18 08:15 Temperature 99.2 F Pulse Rate 138 H Respiratory 20 Rate Blood Pressure 141/101 O2 Sat by Pulse 100 Oximetry Medical Decision Making - Medical Decision Making 52-year-old female with a past medical history of adenocarcinoma of the right lung with metastasis to the liver presents to the emergency department for chief complaint of abdominal pain. States his pain has been ongoing for quite some time. Denies any nature worse in the lower abdomen. Patient was diagnosed with an ovarian cyst and has had some light vaginal bleeding. Exam generally unremarkable. Patient does appear somewhat dry which is likely why she is tachycardic in 130s on presentation. She was given 2 L of fluids for this which did stabilize her vitals and she is in the 90s when I'm in the room. White blood cell count is 2.7 which is uses with patient's past white count. Hemoglobin 10.6 which is her baseline. CMP is unremarkable. Urine does show blood however this is likely from the vaginal bleeding. Patient was given pain medication which she states did help to resolve her pain. At this time patient is comfortable going home, will be discharged to follow-up with her primary care physician. Will return here if she has any worsening symptoms. - Lab Data Result diagrams: 09/29/18 08:49 09/29/18 08:49 Lab Results 09/29/18 09/29/18 09/29/18 Range/Units 08:35 08:35 08:49 WBC (3.8-10.6) k/uL RBC (3.80-5.40) m/uL Hgb (11.4-16.0) gm/dL Hct (34.0-46.0) % MCV (80.0-100.0) fL MCH (25.0-35.0) pg MCHC (31.0-37.0) g/dL RDW (11.5-15.5) % Plt Count (150-450) k/uL Neutrophils % (Manual) % Lymphocytes % (Manual) % Monocytes % (Manual) % Neutrophils # (Manual) (1.3-7.7) k/uL Lymphocytes # (Manual) (1.0-4.8) k/uL Monocytes # (Manual) (0-1.0) k/uL Nucleated RBCs (0-0) /100 WBC Manual Slide Review Hypochromasia Poikilocytosis Anisocytosis PT (9.0-12.0) sec INR (<1.2) APTT (22.0-30.0) sec Sodium 138 (137-145) mmol/L Potassium 4.0 (3.5-5.1) mmol/L Chloride 108 H (98-107) mmol/L Carbon Dioxide 17 L (22-30) mmol/L Anion Gap 13 mmol/L BUN 8 (7-17) mg/dL Creatinine 0.56 (0.52-1.04) mg/dL Est GFR (CKD-EPI)AfAm >90 (>60 ml/min/1.73 sqM) Est GFR (CKD-EPI)NonAf >90 (>60 ml/min/1.73 sqM) Glucose 101 H (74-99) mg/dL Calcium 9.5 (8.4-10.2) mg/dL Total Bilirubin 0.5 (0.2-1.3) mg/dL AST 34 (14-36) U/L ALT 34 (9-52) U/L Alkaline Phosphatase 110 (38-126) U/L Total Protein 6.9 (6.3-8.2) g/dL Albumin 3.6 (3.5-5.0) g/dL Amylase 52 (30-110) U/L Lipase 49 (23-300) U/L Urine Color Light Red Urine Appearance Cloudy H (Clear) Urine pH 6.5 (5.0-8.0) Ur Specific [place] 1.026 (1.001-1.035) Urine Protein 2+ H (Negative) Urine Glucose (UA) Negative (Negative) Urine Ketones Trace H (Negative) Urine Blood Large H (Negative) Urine Nitrite Negative (Negative) Urine Bilirubin Negative (Negative) Urine Urobilinogen 2.0 (<2.0) mg/dL Ur Leukocyte Esterase Small H (Negative) Urine RBC >182 H (0-5) /hpf Urine WBC 13 H (0-5) /hpf Ur Squamous Epith Cells 4 (0-4) /hpf Urine Mucus Many H (None) /hpf Urine HCG, Qual Not Detected (Not Detectd) Blood Type Blood Type Recheck Antibody Screen Spec Expiration Date 09/29/18 09/29/18 09/29/18 Range/Units 08:49 08:49 08:49 WBC 2.7 L (3.8-10.6) k/uL RBC 3.73 L (3.80-5.40) m/uL Hgb 10.6 L (11.4-16.0) gm/dL Hct 32.2 L (34.0-46.0) % MCV 86.3 (80.0-100.0) fL MCH 28.3 (25.0-35.0) pg MCHC 32.8 (31.0-37.0) g/dL RDW 19.3 H (11.5-15.5) % Plt Count 236 (150-450) k/uL Neutrophils % (Manual) 67 % Lymphocytes % (Manual) 18 % Monocytes % (Manual) 15 % Neutrophils # (Manual) 1.81 (1.3-7.7) k/uL Lymphocytes # (Manual) 0.49 L (1.0-4.8) k/uL Monocytes # (Manual) 0.41 (0-1.0) k/uL Nucleated RBCs 0 (0-0) /100 WBC Manual Slide Review Performed Hypochromasia Slight Poikilocytosis Slight Anisocytosis Slight PT 11.1 (9.0-12.0) sec INR 1.0 (<1.2) APTT 26.7 (22.0-30.0) sec Sodium (137-145) mmol/L Potassium (3.5-5.1) mmol/L Chloride (98-107) mmol/L Carbon Dioxide (22-30) mmol/L Anion Gap mmol/L BUN (7-17) mg/dL Creatinine (0.52-1.04) mg/dL Est GFR (CKD-EPI)AfAm (>60 ml/min/1.73 sqM) Est GFR (CKD-EPI)NonAf (>60 ml/min/1.73 sqM) Glucose (74-99) mg/dL Calcium (8.4-10.2) mg/dL Total Bilirubin (0.2-1.3) mg/dL AST (14-36) U/L ALT (9-52) U/L Alkaline Phosphatase (38-126) U/L Total Protein (6.3-8.2) g/dL Albumin (3.5-5.0) g/dL Amylase (30-110) U/L Lipase (23-300) U/L Urine Color Urine Appearance (Clear) Urine pH (5.0-8.0) Ur Specific [place] (1.001-1.035) Urine Protein (Negative) Urine Glucose (UA) (Negative) Urine Ketones (Negative) Urine Blood (Negative) Urine Nitrite (Negative) Urine Bilirubin (Negative) Urine Urobilinogen (<2.0) mg/dL Ur Leukocyte Esterase (Negative) Urine RBC (0-5) /hpf Urine WBC (0-5) /hpf Ur Squamous Epith Cells (0-4) /hpf Urine Mucus (None) /hpf Urine HCG, Qual (Not Detectd) Blood Type O Positive Blood Type Recheck No Antibody Screen NEGATIVE Spec Expiration Date 10/02/2018 5054 Disposition Clinical Impression: Chronic pain due to neoplasm, Vaginal bleeding Disposition: HOME SELF-CARE Condition: Good Instructions (If sedation given, give patient instructions): Chronic Pain (ED), Dysfunctional Uterine Bleeding (ED) Additional Instructions: Please follow up with primary care in 1-2 days. Please return to the emergency department if you have any worsening symptoms. Is patient prescribed a controlled substance at d/c from ED?: No Referrals: Latisha Ziegler MD [Primary Care Provider] - 1-2 days Time of Disposition: 10:53
[2018-09-29 11:27] VITALS: BP 131/86; PULSE 114; RESP 18; TEMP 98.8
== END 2018-09-29 11:27 | disposition home or self-care (01) ==
LOC: EC 08:12
DX: G89.3 Neoplasm related pain (acute) (chronic) (principal); N93.9 Abnormal uterine and vaginal bleeding, unspecified; C34.91 Malignant neoplasm of unspecified part of right bronchus or lung; C78.7 Secondary malignant neoplasm of liver and intrahepatic bile duct; N83.209 Unspecified ovarian cyst, unspecified side; I10 Essential (primary) hypertension; I25.2 Old myocardial infarction; Z79.01 Long term (current) use of anticoagulants; Z88.0 Allergy status to penicillin; Z87.891 Personal history of nicotine dependence; Z85.818 Personal history of malignant neoplasm of other sites of lip, oral cavity, and pharynx; Z95.5 Presence of coronary angioplasty implant and graft
CPT/HCPCS: 36415; 86900; 86901; 80053; 82150; 83690; 85025; 85610; 85730; 86850; 81001; 81025; 87086; 99284; 96374; 96361 ×2; J1170; 87077; 87186

== ENCOUNTER 2018-10-11 11:41 | Emergency (ER) | payer OTHER ==
[2018-10-11] MEDS ORDERED: FAMOTIDINE 20 MG/2 ML VIAL IV STA (12:34)
[2018-10-11] MEDS ORDERED: HYDROmorphone 1 MG/ML 1 ML SYRINGE IVP STA (12:34)
[2018-10-11] MEDS ORDERED: SODIUM CHLORIDE 0.9% 500 ML 500 ML IV STA ×2 (12:34→13:56)
[2018-10-11] MEDS ORDERED: METOCLOPRAMIDE 5 MG/ML 2 ML VIAL IVP STA (12:34)
[2018-10-11] MEDS ORDERED: SODIUM CHLORIDE 0.9% 1,000 ML IV STA (12:36)
--- NOTE | 2018-10-11 12:40 | ED ---
General Adult HPI - General Chief complaint: Nausea/Vomiting/Diarrhea Stated complaint: Nausea Time Seen by Provider: 10/11/18 12:11 Source: patient, RN notes reviewed Mode of arrival: wheelchair Limitations: no limitations - History of Present Illness Initial comments: Patient is a pleasant 52-year-old female presenting to the emergency department with nausea and fatigue. Onset of symptoms was a couple of days ago. Patient is on radiation and chemotherapy for metastatic lung disease. Patient does have metastatic disease to the abdomen. Patient has been having vaginal bleeding similar to a light menses. This has been going on for several weeks and her oncologist is aware of this. Patient has mild increase in her chronic abdominal discomfort. Patient does have associated headache. Patient has nausea and decreased oral intake. No vomiting. Patient is diffusely fatigued. Patient does have history of previous brain surgery. Patient states she did have recent MRI showing no disease in her brain, this was less than a month ago. Associated headache was gradual onset over several hours this started yesterday. - Related Data Home Medications Medication Instructions Recorded Confirmed Ondansetron [Zofran ODT] 4 mg PO Q8HR 08/30/18 10/11/18 Apixaban [Eliquis] 5 mg PO BID 09/29/18 10/11/18 oxyCODONE-APAP 10-325MG [Percocet 1 tab PO QID PRN 10/11/18 10/11/18 10-325 mg] Previous Rx's Medication Instructions Recorded Folic Acid 1 mg PO DAILY #30 tab 08/24/18 Pantoprazole Sodium [Protonix] 40 mg PO DAILY #30 tablet. 08/24/18 Acetaminophen Tab [Tylenol] 650 mg PO Q6HR PRN tab 09/01/18 Atorvastatin [Lipitor] 80 mg PO HS tab 09/01/18 Megestrol [Megace] 400 mg PO DAILY #30 cup 09/01/18 Docusate [Colace] 100 mg PO BID PRN #60 capsule 09/09/18 Magnesium Oxide [Mag-Ox] 400 mg PO DAILY #3 tab 09/09/18 Sennosides [Senna] 8.6 mg PO HS PRN #60 tablet 09/09/18 Lidocaine Viscous [Xylocaine 30 ml PO TID #300 ml 09/25/18 Viscous 2%] Nystatin 100,000 Unit/ml Susp 3,000,000 unit PO TID #30 cup 09/25/18 [Mycostatin Oral Susp] Allergies Allergy/AdvReac Type Severity Reaction Status Date / Time Penicillins Allergy Unknown Verified 10/11/18 12:58 Childhood Review of Systems ROS Statement: Those systems with pertinent positive or pertinent negative responses have been documented in the HPI. ROS Other: All systems not noted in ROS Statement are negative. Constitutional: Denies: fever Eyes: Denies: eye pain ENT: Denies: ear pain Respiratory: Reports: dyspnea (Mild and chronic) Cardiovascular: Reports: palpitations. Denies: chest pain Endocrine: Reports: fatigue Gastrointestinal: Reports: nausea. Denies: abdominal pain, vomiting Genitourinary: Denies: dysuria Musculoskeletal: Denies: back pain Skin: Denies: rash Neurological: Reports: headache Past Medical History Past Medical History: Cancer, GERD/Reflux, Hyperlipidemia, Hypertension, Myocardial Infarction ([place]) Additional Past Medical History / Comment(s): BRAIN ANEURSYM, [place] 2012, LUNG CA diagnosed 2014, CARPAL TUNNEL RIGHT WRIST, throat CA dx apr 2018 Last Myocardial Infarction Date:: 04/30/2013 History of Any Multi-Drug Resistant Organisms: None Reported Past Surgical History: Heart Catheterization, Orthopedic Surgery, Tubal Ligation, Uterine Ablation Additional Past Surgical History / Comment(s): ANGIOPLASTY FOR BRAIN ANEURSYM, CARPEL TUNNEL RIGHT WRIST , and laparoscopy, PARTIAL RIGHT LUNG REMOVAL ,PTCA, Past Anesthesia/Blood Transfusion Reactions: No Reported Reaction Past Psychological History: Anxiety, Panic Disorder Smoking Status: Former smoker Past Alcohol Use History: None Reported Past Drug Use History: None Reported - Past Family History Mother Family Medical History: Cancer Father Family Medical History: Cancer General Exam Limitations: no limitations General appearance: alert, in no apparent distress Head exam: Present: atraumatic Eye exam: Present: normal appearance, PERRL ENT exam: Present: normal oropharynx Neck exam: Present: normal inspection Respiratory exam: Present: normal lung sounds bilaterally Cardiovascular Exam: Present: tachycardia GI/Abdominal exam: Present: soft, tenderness (Mild diffuse tenderness). Absent: distended Extremities exam: Present: normal inspection Neurological exam: Present: alert, CN II-XII intact. Absent: motor sensory deficit Expanded Neurological exam: Present: protecting the airway Speech: Present: fluid speech Cranial nerves: EOM's Intact: Normal Motor strength exam: RUE: 5, LUE: 5, RLE: 5, LLE: 5 Eye Response: (4) open spontaneously Motor Response: (6) obeys commands Verbal Response: (5) oriented Psychiatric exam: Present: normal affect, normal mood Skin exam: Present: normal color Course Vital Signs 10/11/18 10/11/18 11:52 14:15 Temperature 98.6 F Pulse Rate 111 H 86 Respiratory 18 18 Rate Blood Pressure 85/66 100/72 O2 Sat by Pulse 100 100 Oximetry EKG Findings - EKG Comments: EKG Findings:: Normal sinus rhythm 87. GA 1:30. QRS 86. QT 362. QTC 435. N ormal axis. Normal QRS. Nonspecific ST-T. Medical Decision Making - Medical Decision Making Patient reevaluated and feels much better. Patient is requesting discharge home. Dr. Fatima has been paged. Patient does have a follow-up appointment to [facility] with Dr. Fatima. - Lab Data Result diagrams: 10/11/18 13:13 10/11/18 13:13 Lab Results 10/11/18 10/11/18 10/11/18 Range/Units 13:13 13:13 13:13 WBC 8.5 (3.8-10.6) k/uL RBC 3.05 L (3.80-5.40) m/uL Hgb 8.6 L D (11.4-16.0) gm/dL Hct 26.7 L (34.0-46.0) % MCV 87.4 (80.0-100.0) fL MCH 28.2 (25.0-35.0) pg MCHC 32.2 (31.0-37.0) g/dL RDW 21.3 H (11.5-15.5) % Plt Count 265 (150-450) k/uL Neutrophils % 87 % Lymphocytes % 7 % Monocytes % 4 % Eosinophils % 1 % Basophils % 0 % Neutrophils # 7.4 (1.3-7.7) k/uL Lymphocytes # 0.6 L (1.0-4.8) k/uL Monocytes # 0.4 (0-1.0) k/uL Eosinophils # 0.1 (0-0.7) k/uL Basophils # 0.0 (0-0.2) k/uL Hypochromasia Moderate Poikilocytosis Slight Anisocytosis Moderate Sodium 140 (137-145) mmol/L Potassium 4.7 (3.5-5.1) mmol/L Chloride 111 H (98-107) mmol/L Carbon Dioxide 21 L (22-30) mmol/L Anion Gap 8 mmol/L BUN 8 (7-17) mg/dL Creatinine 0.69 (0.52-1.04) mg/dL Est GFR (CKD-EPI)AfAm >90 (>60 ml/min/1.73 sqM) Est GFR (CKD-EPI)NonAf >90 (>60 ml/min/1.73 sqM) Glucose 99 (74-99) mg/dL Plasma Lactic Acid Chase 1.1 (0.7-2.0) mmol/L Calcium 9.6 (8.4-10.2) mg/dL Phosphorus 4.2 (2.5-4.5) mg/dL Magnesium 1.6 (1.6-2.3) mg/dL Total Bilirubin 0.5 (0.2-1.3) mg/dL AST 42 H (14-36) U/L ALT 32 (9-52) U/L Alkaline Phosphatase 84 (38-126) U/L Total Protein 6.7 (6.3-8.2) g/dL Albumin 3.3 L (3.5-5.0) g/dL Urine Color Urine Appearance (Clear) Urine pH (5.0-8.0) Ur Specific [place] (1.001-1.035) Urine Protein (Negative) Urine Glucose (UA) (Negative) Urine Ketones (Negative) Urine Blood (Negative) Urine Nitrite (Negative) Urine Bilirubin (Negative) Urine Urobilinogen (<2.0) mg/dL Ur Leukocyte Esterase (Negative) Urine RBC (0-5) /hpf Urine WBC (0-5) /hpf Ur Squamous Epith Cells (0-4) /hpf Urine Bacteria (None) /hpf Hyaline Casts (0-2) /lpf Urine Mucus (None) /hpf 10/11/18 Range/Units 13:13 WBC (3.8-10.6) k/uL RBC (3.80-5.40) m/uL Hgb (11.4-16.0) gm/dL Hct (34.0-46.0) % MCV (80.0-100.0) fL MCH (25.0-35.0) pg MCHC (31.0-37.0) g/dL RDW (11.5-15.5) % Plt Count (150-450) k/uL Neutrophils % % Lymphocytes % % Monocytes % % Eosinophils % % Basophils % % Neutrophils # (1.3-7.7) k/uL Lymphocytes # (1.0-4.8) k/uL Monocytes # (0-1.0) k/uL Eosinophils # (0-0.7) k/uL Basophils # (0-0.2) k/uL Hypochromasia Poikilocytosis Anisocytosis Sodium (137-145) mmol/L Potassium (3.5-5.1) mmol/L Chloride (98-107) mmol/L Carbon Dioxide (22-30) mmol/L Anion Gap mmol/L BUN (7-17) mg/dL Creatinine (0.52-1.04) mg/dL Est GFR (CKD-EPI)AfAm (>60 ml/min/1.73 sqM) Est GFR (CKD-EPI)NonAf (>60 ml/min/1.73 sqM) Glucose (74-99) mg/dL Plasma Lactic Acid [place] (0.7-2.0) mmol/L Calcium (8.4-10.2) mg/dL Phosphorus (2.5-4.5) mg/dL Magnesium (1.6-2.3) mg/dL Total Bilirubin (0.2-1.3) mg/dL AST (14-36) U/L ALT (9-52) U/L Alkaline Phosphatase (38-126) U/L Total Protein (6.3-8.2) g/dL Albumin (3.5-5.0) g/dL Urine Color Yellow Urine Appearance Cloudy H (Clear) Urine pH 6.5 (5.0-8.0) Ur Specific [place] 1.026 (1.001-1.035) Urine Protein 2+ H (Negative) Urine Glucose (UA) Negative (Negative) Urine Ketones Negative (Negative) Urine Blood Moderate H (Negative) Urine Nitrite Negative (Negative) Urine Bilirubin Negative (Negative) Urine Urobilinogen <2.0 (<2.0) mg/dL Ur Leukocyte Esterase Moderate H (Negative) Urine RBC >182 H (0-5) /hpf Urine WBC 34 H (0-5) /hpf Ur Squamous Epith Cells 4 (0-4) /hpf Urine Bacteria Occasional H (None) /hpf Hyaline Casts 35 H (0-2) /lpf Urine Mucus Many H (None) /hpf - Radiology Data Radiology results: image reviewed (Chest and abdominal x-ray revealed no acute process) Disposition Clinical Impression: Nausea Disposition: HOME SELF-CARE Condition: Stable Instructions (If sedation given, give patient instructions): Acute Nausea and Vomiting (ED) Additional Instructions: Please follow-up tomorrow with Dr. Fatima as planned. Return for increased headache, change in headache, weakness, confusion, increased abdominal pain, worsening symptoms or other concerns. Is patient prescribed a controlled substance at d/c from ED?: No Referrals: Latisha Ziegler MD [Primary Care Provider] - 1-2 days Time of Disposition: 16:30
[2018-10-11 13:41] LABS: Appearance,Urine Cloudy (Clear); Bacteria,Urine Occasional /hpf; Bilirubin,Urine Negative (Negative); Blood,Urine Moderate (Negative); Color,Urine Yellow; Glucose,Urine (UA) Negative (Negative); Hyaline Casts,Urine 35 /lpf (0-2); Ketones,Urine Negative (Negative); Leukocyte Esterase,Urine Moderate (Negative); Mucus,Urine Many /hpf; Nitrite,Urine Negative (Negative); PH, Urine 6.5 (5.0-8.0); Protein,Urine 2+ (Negative); RBC,Urine >182 /hpf (0-5); Specific Gravity,Urine 1.026 (1.001-1.035); Squamous Epithelial Cell,Urine 4 /hpf (0-4); Urobilinogen,Urine <2.0 mg/dL (<2.0); WBC,Urine 34 /hpf (0-5)
[2018-10-11 13:44] LABS: ALT 32 U/L (9-52); AST 42 U/L (14-36); Albumin 3.3 g/dL (3.5-5.0); Alkaline Phosphatase 84 U/L (38-126); Anion Gap 8 mmol/L; Blood Urea Nitrogen 8 mg/dL (7-17); Calcium 9.6 mg/dL (8.4-10.2); Carbon Dioxide 21 mmol/L (22-30); Chloride 111 mmol/L (98-107); Glucose 99 mg/dL (74-99); Magnesium 1.6 mg/dL (1.6-2.3); Phosphorus 4.2 mg/dL (2.5-4.5); Sodium 140 mmol/L (137-145); Total Bilirubin 0.5 mg/dL (0.2-1.3); Total Protein 6.7 g/dL (6.3-8.2)
[2018-10-11 13:49] LABS: Anisocytosis Moderate; Basophils % (A) 0 %; Eosinophils # (A) 0.1 k/uL (0-0.7); Eosinophils % (A) 1 %; HCT 26.7 % (34.0-46.0); Hypochromasia Moderate; Lymphocytes # (A) 0.6 k/uL (1.0-4.8); Lymphocytes % (A) 7 %; MCH 28.2 pg (25.0-35.0); MCHC 32.2 g/dL (31.0-37.0); MCV 87.4 fL (80.0-100.0); Mean Platelet Volume 7.9; Monocytes # (A) 0.4 k/uL (0-1.0); Monocytes % (A) 4 %; Neutrophils # (A) 7.4 k/uL (1.3-7.7); Neutrophils % (A) 87 %; Platelet Count 265 k/uL (150-450); Poikilocytosis Slight; RBC 3.05 m/uL (3.80-5.40); RDW 21.3 % (11.5-15.5); WBC 8.5 k/uL (3.8-10.6)
[2018-10-11 13:55] LABS: HGB 8.6 gm/dL (11.4-16.0)
[2018-10-11 14:11] LABS: Potassium 4.7 mmol/L (3.5-5.1)
--- NOTE | 2018-10-11 14:37 | XR ---
EXAMINATION TYPE: XR abdomen 1V DATE OF EXAM: 10/11/2018 COMPARISON: 08/14/2014 INDICATION: Abdominal pain nausea TECHNIQUE: Single view abdomen upright view FINDINGS: There is a normal bowel gas pattern. Psoas margins are normal. No organomegaly is present. No suspicious calcifications are evident. IMPRESSION: 1. Unremarkable Abdomen
--- NOTE | 2018-10-11 14:38 | XR ---
EXAMINATION TYPE: XR chest 2V DATE OF EXAM: 10/11/2018 COMPARISON: 09/23/2018 INDICATION: Weakness and nausea headache TECHNIQUE: Frontal and lateral views of the chest are obtained. FINDINGS: The heart size is normal. The pulmonary vasculature is normal. The lungs are clear. There is chronic blunting of the right costophrenic angle. Port is present on t he right with the tip in superior vena cava region. IMPRESSION: 1. No acute pulmonary process.
[2018-10-11 16:48] VITALS: BP 110/58; PULSE 92; RESP 16; TEMP 98.8
== END 2018-10-11 16:54 | disposition home or self-care (01) ==
LOC: EC 11:41
DX: R11.0 Nausea (principal); R10.84 Generalized abdominal pain; R51 Headache; R53.83 Other fatigue; C34.90 Malignant neoplasm of unspecified part of unspecified bronchus or lung; C79.89 Secondary malignant neoplasm of other specified sites; Z85.89 Personal history of malignant neoplasm of other organs and systems; K21.9 Gastro-esophageal reflux disease without esophagitis; I25.2 Old myocardial infarction; Z85.118 Personal history of other malignant neoplasm of bronchus and lung; Z87.891 Personal history of nicotine dependence; Z79.01 Long term (current) use of anticoagulants; Z79.899 Other long term (current) drug therapy; Z88.0 Allergy status to penicillin; Z95.818 Presence of other cardiac implants and grafts; Z90.2 Acquired absence of lung [part of]
CPT/HCPCS: 36415; 93005; 80053; 83605; 83735; 84100; 85025; 81001; 71046; 74018; 99284; 96374; 96375 ×2; 96361 ×3; J2765; J1170

== ENCOUNTER 2018-10-15 09:17 | Observation (INO) | payer OTHER ==
[2018-10-15] MEDS ORDERED: SODIUM CHLORIDE 0.9% 1,000 ML IV STA (09:43)
[2018-10-15] MEDS ORDERED: ONDANSETRON 4 MG/2 ML VIAL IVP STA (09:43)
[2018-10-15] MEDS: SODIUM CHLORIDE 0.9% 2,000 ML IV STA ×2 (10:07→10:10)
[2018-10-15] MEDS ORDERED: HYDROmorphone 0.5 MG/0.5 ML SYRINGE IVP STA (10:11)
[2018-10-15 10:32] LABS: Anisocytosis Moderate; Basophils % (A) 0 %; Eosinophils # (A) 0.1 k/uL (0-0.7); Eosinophils % (A) 1 %; HCT 30.2 % (34.0-46.0); HGB 9.3 gm/dL (11.4-16.0); Hypochromasia Moderate; Lymphocytes # (A) 0.5 k/uL (1.0-4.8); Lymphocytes % (A) 7 %; MCH 26.9 pg (25.0-35.0); MCHC 30.7 g/dL (31.0-37.0); MCV 87.6 fL (80.0-100.0); Mean Platelet Volume 7.7; Monocytes # (A) 0.1 k/uL (0-1.0); Monocytes % (A) 1 %; Neutrophils # (A) 6.7 k/uL (1.3-7.7); Neutrophils % (A) 89 %; Platelet Count 386 k/uL (150-450); Poikilocytosis Slight; RBC 3.44 m/uL (3.80-5.40); RDW 21.2 % (11.5-15.5); WBC 7.6 k/uL (3.8-10.6)
[2018-10-15 10:38] LABS: ALT 42 U/L (9-52); AST 45 U/L (14-36); African American GFR (CKD) >90 (>60 ml/min/1.73 sqM); Albumin 3.6 g/dL (3.5-5.0); Alkaline Phosphatase 115 U/L (38-126); Amylase 94 U/L (30-110); Anion Gap 10 mmol/L; Blood Urea Nitrogen 12 mg/dL (7-17); Calcium 10.2 mg/dL (8.4-10.2); Carbon Dioxide 17 mmol/L (22-30); Glucose 93 mg/dL (74-99); Lipase 160 U/L (23-300); Magnesium 1.5 mg/dL (1.6-2.3); Potassium 4.2 mmol/L (3.5-5.1); Sodium 138 mmol/L (137-145); Total Bilirubin 0.5 mg/dL (0.2-1.3); Total Protein 7.1 g/dL (6.3-8.2)
[2018-10-15 11:11] LABS: Chloride 111 mmol/L (98-107)
[2018-10-15] MEDS ORDERED: MAGNESIUM SULFATE-D5W PMX 1 GM in DEXTROSE/WATER 1 100ML.BAG IVPB ONE (13:05)
--- NOTE | 2018-10-15 13:05 | ED ---
Nausea/Vomiting/Diarrhea HPI - General Chief complaint: Nausea/Vomiting/Diarrhea Stated complaint: Vomitting and diarrhea Time Seen by Provider: 10/15/18 09:28 Source: patient, RN notes reviewed - History of Present Illness Initial comments: This is a 52-year-old female with a history cancer who has chemo and radiation therapy who is back today with complaints of weakness abdominal pain nausea vomiting diarrhea she was found be hypotensive in the triage area. This is very similar to her previous episodes. MD complaint: nausea, vomiting, diarrhea, abdominal pain - Related Data Home Medications Medication Instructions Recorded Confirmed Ondansetron [Zofran ODT] 4 mg PO Q8HR 08/30/18 10/15/18 Apixaban [Eliquis] 5 mg PO BID 09/29/18 10/15/18 oxyCODONE-APAP 10-325MG [Percocet 1 tab PO QID PRN 10/11/18 10/15/18 10-325 mg] Previous Rx's Medication Instructions Recorded Folic Acid 1 mg PO DAILY #30 tab 08/24/18 Pantoprazole Sodium [Protonix] 40 mg PO DAILY #30 tablet.dr 08/24/18 Acetaminophen Tab [Tylenol] 650 mg PO Q6HR PRN tab 09/01/18 Atorvastatin [Lipitor] 80 mg PO HS tab 09/01/18 Megestrol [Megace] 400 mg PO DAILY #30 cup 09/01/18 Docusate [Colace] 100 mg PO BID PRN #60 capsule 09/09/18 Magnesium Oxide [Mag-Ox] 400 mg PO DAILY #3 tab 09/09/18 Sennosides [Senna] 8.6 mg PO HS PRN #60 tablet 09/09/18 Lidocaine Viscous [Xylocaine 30 ml PO TID #300 ml 09/25/18 Viscous 2%] Nystatin 100,000 Unit/ml Susp 3,000,000 unit PO TID #30 cup 09/25/18 [Mycostatin Oral Susp] Allergies Allergy/AdvReac Type Severity Reaction Status Date / Time Penicillins Allergy Unknown Verified 10/15/18 09:38 Childhood Review of Systems ROS Statement: Those systems with pertinent positive or pertinent negative responses have been documented in the HPI. ROS Other: All systems not noted in ROS Statement are negative. Past Medical History Past Medical History: Cancer, GERD/Reflux, Hyperlipidemia, Hypertension, Myocardial Infarction ([place]) Additional Past Medical History / Comment(s): BRAIN ANEURSYM, [place] 2012, LUNG CA diagnosed 2014, CARPAL TUNNEL RIGHT WRIST, throat CA dx apr 2018 Last Myocardial Infarction Date:: 04/30/2013 History of Any Multi-Drug Resistant Organisms: None Reported Past Surgical History: Heart Catheterization, Orthopedic Surgery, Tubal Ligation, Uterine Ablation Additional Past Surgical History / Comment(s): ANGIOPLASTY FOR BRAIN ANEURSYM, CARPEL TUNNEL RIGHT WRIST , and laparoscopy, PARTIAL RIGHT LUNG REMOVAL ,PTCA, Past Anesthesia/Blood Transfusion Reactions: No Reported Reaction Past Psychological History: Anxiety, Panic Disorder Smoking Status: Former smoker Past Alcohol Use History: None Reported Past Drug Use History: None Reported - Past Family History Mother Family Medical History: Cancer Father Family Medical History: Cancer General Exam - General Exam Comments Initial Comments: This is a well-developed molars awake alert oriented history female General appearance: anxious, in distress Head exam: Present: atraumatic, normocephalic, normal inspection Eye exam: Present: normal appearance, PERRL, EOMI. Absent: scleral icterus, conjunctival injection, periorbital swelling ENT exam: Present: mucous membranes dry Neck exam: Present: normal inspection, full ROM. Absent: tenderness, meningismus, lymphadenopathy Respiratory exam: Present: normal lung sounds bilaterally. Absent: respiratory distress, wheezes, rales, rhonchi, stridor Cardiovascular Exam: Present: normal rhythm, tachycardia, normal heart sounds. Absent: systolic murmur, diastolic murmur, rubs, gallop, clicks GI/Abdominal exam: Present: soft, tenderness (Mild epigastric tenderness palpation no guarding rebound masses or bruits), normal bowel sounds. Absent: distended, guarding, rebound, rigid Extremities exam: Present: normal inspection, full ROM, normal capillary refill. Absent: tenderness, pedal edema, joint swelling, calf tenderness Back exam: Present: normal inspection Neurological exam: Present: alert, oriented X3, CN II-XII intact Psychiatric exam: Present: normal affect, normal mood Skin exam: Present: warm, dry, intact, normal color. Absent: rash Course Vital Signs 10/15/18 10/15/18 10/15/18 09:19 10:24 12:03 Temperature 97.9 F Pulse Rate 136 H 106 H 88 Respiratory 24 16 16 Rate Blood Pressure 85/65 113/70 114/62 O2 Sat by Pulse 100 100 100 Oximetry - Reevaluation(s) Reevaluation #1: 10/15/18 14:04 I did reevaluate patient several occasions she is feeling slightly better but still feeling weak nausea has resolved Medical Decision Making - Medical Decision Making I did discuss findings with patient she still feeling very weak she'll be admitted for treatment of dehydration nausea vomiting diarrhea the case is discussed with Dr. Stoddard. - Lab Data Result diagrams: 10/15/18 10:04 10/15/18 10:04 Lab Results 10/15/18 10/15/18 Range/Units 10:04 10:04 WBC 7.6 (3.8-10.6) k/uL RBC 3.44 L (3.80-5.40) m/uL Hgb 9.3 L (11.4-16.0) gm/dL Hct 30.2 L (34.0-46.0) % MCV 87.6 (80.0-100.0) fL MCH 26.9 (25.0-35.0) pg MCHC 30.7 L (31.0-37.0) g/dL RDW 21.2 H (11.5-15.5) % Plt Count 386 (150-450) k/uL Neutrophils % 89 % Lymphocytes % 7 % Monocytes % 1 % Eosinophils % 1 % Basophils % 0 % Neutrophils # 6.7 (1.3-7.7) k/uL Lymphocytes # 0.5 L (1.0-4.8) k/uL Monocytes # 0.1 (0-1.0) k/uL Eosinophils # 0.1 (0-0.7) k/uL Basophils # 0.0 (0-0.2) k/uL Hypochromasia Moderate Poikilocytosis Slight Anisocytosis Moderate Sodium 138 (137-145) mmol/L Potassium 4.2 (3.5-5.1) mmol/L Chloride 111 H (98-107) mmol/L Carbon Dioxide 17 L (22-30) mmol/L Anion Gap 10 mmol/L BUN 12 (7-17) mg/dL Creatinine 0.66 (0.52-1.04) mg/dL Est GFR (CKD-EPI)AfAm >90 (>60 ml/min/1.73 sqM) Est GFR (CKD-EPI)NonAf >90 (>60 ml/min/1.73 sqM) Glucose 93 (74-99) mg/dL Calcium 10.2 (8.4-10.2) mg/dL Magnesium 1.5 L (1.6-2.3) mg/dL Total Bilirubin 0.5 (0.2-1.3) mg/dL AST 45 H (14-36) U/L ALT 42 (9-52) U/L Alkaline Phosphatase 115 (38-126) U/L Total Protein 7.1 (6.3-8.2) g/dL Albumin 3.6 (3.5-5.0) g/dL Amylase 94 (30-110) U/L Lipase 160 (23-300) U/L Disposition Clinical Impression: Gastroenteritis, Dehydration, Lung cancer, Failure to thrive Disposition: ADMITTED IP TO THIS HOSP Condition: Fair Referrals: Latisha Ziegler MD [Primary Care Provider] - 1-2 days
[2018-10-15] MEDS ORDERED: NALOXONE 0.4 MG/ML 1 ML VIAL IV PRN (14:07)
[2018-10-15] MEDS ORDERED: DOCUSATE 100 MG CAP PO PRN (14:15)
[2018-10-15] MEDS ORDERED: SENNOSIDES 8.6 MG TAB PO PRN (14:15)
[2018-10-15] MEDS ORDERED: ACETAMINOPHEN TAB 325 MG TAB PO PRN (14:15)
[2018-10-15] MEDS: SODIUM CHLORIDE 0.9% 1,000 ML IV SCH (14:29)
[2018-10-15] MEDS: oxyCODONE-APAP 10-325MG 1 EACH TAB PO PRN ×2 (16:46→23:04)
[2018-10-15] MEDS: NYSTATIN 100,000 UNIT/ML SUSP 500,000 UNIT/5 ML CUP PO SCH ×2 (16:47→23:04)
[2018-10-15] MEDS: LIDOCAINE VISCOUS 300 MG/15 ML CUP MUCOUS MEM SCH ×2 (16:47→23:04)
[2018-10-15] MEDS: ONDANSETRON ODT 4 MG TAB PO SCH ×2 (16:51→23:04)
[2018-10-15] MEDS: APIXABAN 5 MG TAB PO SCH (20:15)
[2018-10-15] MEDS: ATORVASTATIN 80 MG TAB PO SCH (20:15)
--- NOTE | 2018-10-15 23:52 | HP ---
HISTORY AND PHYSICAL DATE OF SERVICE: 10/15/2018 CHIEF COMPLAINT: Abdominal pain and as well as diarrhea. HISTORY OF PRESENT ILLNESS: This 52-year-old woman with a the past medical history of multiple medical problems including metastatic lung cancer with vaginal bleeding, history of axillary abscesses was also recently admitted to [facility] with complaints of nausea, vomiting, secondary to mucositis and peptic ulcerations. Currently the patient is doing chemotherapy from hematology on Dr. Fatima's office. Patient also had radiation by Dr. Gunter in the pelvic area. The patient reports that the vaginal bleeding is slightly better, but however the patient developed abdominal pain as well as multiple episodes of diarrhea. The patient came to [facility] and admitted for further evaluation and treatment. There is no history of fever, rigors. No history of headache, loss of consciousness, seizures at this time. The patient being followed by Dr. Latisha Loyd in the outpatient setting. PAST MEDICAL HISTORY: Of lung cancer met as mentioned earlier. Other conditions: GERD, hypertension, hyperlipidemia, history of myocardial infarction, history of brain aneurysm, History of cardiac catheterization. MEDICATIONS: Prior to admission include home medications are 1. Senna 8.6 p.o. q.h.s. 2. Lipitor 80 mg q.h.s. 3. Oxycodone 10 mg q.i.d. p.r.n. 4. Protonix 40 mg. 5. Zofran 4 mg q.8 p.r.n. 6. Mycostatin use p.o. t.i.d. 7. Megace 400 mg p.o. daily. 8. Magnesium oxide 400 mg b.i.d. 10.Folic acid 1 mg daily. 11.Colace 100 mg p.o. b.i.d. p.r.n. 12.Eliquis 5 mg p.o. b.i.d. 13.Tylenol 650 q.6h p.r.n. ALLERGIES: Penicillin family. FAMILY HISTORY: Of cancer in the family. SOCIAL HISTORY: No history of smoking. No history of alcohol intake. REVIEW OF SYSTEMS: ENT: No diminished vision. No diminished hearing. CARDIOVASCULAR: No angina or palpitations. RESPIRATORY: As mentioned earlier. GI: As mentioned earlier. mentioned earlier. NERVOUS SYSTEM: No numbness or weakness. ALLERGY/IMMUNOLOGY: As mentioned earlier. MUSCULOSKELETAL: As mentioned earlier. HEMATOLOGY/ONCOLOGY: As mentioned earlier. ENDOCRINE: No history of diabetes or hypothyroidism. CONSTITUTIONAL: As mentioned earlier. DERMATOLOGY: Negative. RHEUMATOLOGY: Negative. PSYCHIATRIC: As mentioned earlier. PHYSICAL EXAMINATION: GENERAL: The patient is alert and oriented times three. VITAL SIGNS: Pulse 98. Blood pressure 118/63, respiratory rate 16, temperature 98 degrees, Pulse ox 100% on room air. HEENT: Conjunctivae normal. Oral mucosa dry. NECK is no jugular venous distention. No carotid bruit. No lymph node enlargement. Cardiovascular system: S1, S2. No S3, no S4. RESPIRATORY: Breath sounds diminished in the bases. No rhonchi. No crackles. ABDOMEN: Soft, mild diffuse discomfort. Otherwise, no guarding, no rigidity. No mass palpable. No hepatosplenomegaly. No ascites. LEGS no edema. No swelling. NERVOUS SYSTEM: Higher functions as mentioned earlier. Moves all 4 limbs. No focal motor or sensory deficits. LYMPHATICS: No lymph nodes palpable in the neck, axillae or groin. SKIN: No ulcer, rash or bleeding. JOINTS: No active deforming arthropathy. LAB STUDIES: WBC 7.2, hemoglobin 9.3, and magnesium is 1.5. ASSESSMENT: 1. Acute abdominal pain as well as diarrhea possibly acute gastroenteritis, rule out colitis. 2. Hypomagnesemia. 3. Dehydration secondary to diarrhea. 4. Hypomagnesemia. 5. Lung cancer with multiple METS to the peritoneum and as well as causing possibly genitourinary bleeding. 6. History of axillary abscess previously. 7. Ovarian tumor, possibly indicating metastasis. 8. History of pulmonary embolus. 9. History of gastroesophageal reflux disease. 10.Hypertension. 11.Hyperlipidemia. 12.History of myocardial infarction. 13.History of brain aneurysm. 14.History of anxiety. 15.History of panic disorder. 16.History of nicotine dependence. 17.FULL CODE. RECOMMENDATION: In this 52-year-old woman with multiple complex medical issues as mentioned earlier. Otherwise at this time I recommend to continue current medications, continue with IV fluids. Monitor electrolytes closely. Resume the home medications. Check C difficile colitis. Once the diarrhea is better, we will start to advance diet. The above mentioned symptoms could be due to gastroenteritis or could be due to either radiation or chemotherapy induced enterocolitis as well. Prognosis guarded because of multiple complex mewdical issues. Further recommendations to follow. The patient is on apixaban also. The bleed is better as mentioned earlier. We will also repeat magnesium also. Further recommendations to follow. A copy of this dictation being forwarded to Dr. Latisha Ziegler. CYN / ISISN: [id number] / MTDD
[2018-10-16] MEDS: SODIUM CHLORIDE 0.9% 1,000 ML IV SCH ×2 (02:14→13:04)
[2018-10-16 06:02] LABS: African American GFR (CKD) >90 (>60 ml/min/1.73 sqM); Anion Gap 4 mmol/L; Blood Urea Nitrogen 10 mg/dL (7-17); Carbon Dioxide 19 mmol/L (22-30); Chloride 116 mmol/L (98-107); Glucose 77 mg/dL (74-99); Magnesium 1.8 mg/dL (1.6-2.3); Potassium 4.4 mmol/L (3.5-5.1); Sodium 139 mmol/L (137-145)
[2018-10-16 06:09] LABS: Anisocytosis Moderate; Basophils % (A) 0 %; Eosinophils # (A) 0.1 k/uL (0-0.7); Eosinophils % (A) 3 %; Hypochromasia Moderate; Lymphocytes # (A) 0.4 k/uL (1.0-4.8); Lymphocytes % (A) 9 %; MCH 27.3 pg (25.0-35.0); MCHC 31.2 g/dL (31.0-37.0); MCV 87.7 fL (80.0-100.0); Mean Platelet Volume 7.5; Monocytes # (A) 0.1 k/uL (0-1.0); Monocytes % (A) 1 %; Neutrophils # (A) 3.7 k/uL (1.3-7.7); Neutrophils % (A) 85 %; Platelet Count 318 k/uL (150-450); Poikilocytosis Slight; RBC 2.62 m/uL (3.80-5.40); RDW 20.6 % (11.5-15.5); WBC 4.3 k/uL (3.8-10.6)
[2018-10-16 06:36] LABS: HGB 7.2 gm/dL (11.4-16.0)
[2018-10-16] MEDS ORDERED: PANTOPRAZOLE 40 MG TABLET PO SCH (07:30)
[2018-10-16] MEDS: oxyCODONE-APAP 10-325MG 1 EACH TAB PO PRN ×2 (08:27→20:48)
[2018-10-16] MEDS: ONDANSETRON ODT 4 MG TAB PO SCH ×3 (08:31→23:18)
[2018-10-16] MEDS: APIXABAN 5 MG TAB PO SCH ×2 (08:31→20:47)
[2018-10-16] MEDS: MAGNESIUM OXIDE 400 MG TAB PO SCH (08:31)
[2018-10-16] MEDS: FOLIC ACID 1 MG TAB PO SCH (08:32)
[2018-10-16] MEDS: LIDOCAINE VISCOUS 300 MG/15 ML CUP MUCOUS MEM SCH ×3 (08:32→22:32)
[2018-10-16] MEDS: NYSTATIN 100,000 UNIT/ML SUSP 500,000 UNIT/5 ML CUP PO SCH ×3 (08:32→22:32)
[2018-10-16] MEDS: MEGESTROL 400 MG/10 ML CUP PO SCH (08:32)
[2018-10-16 10:05] VITALS: BMI 25.4
--- NOTE | 2018-10-16 11:25 | P.PN ---
Subjective Progress Note Date: 10/15/18 Principal diagnosis: Dehydration, nausea/diarrhea The patient is a 52 year old female with metastatic adenocarcinoma of the lung. She has completed 3/5 palliative radiotherapy treatments for vaginal bleeding. She notes this has improved, but she still sees a pinkish tinge at times when using the restroom. She had her most recent cycle of chemo this Monday, and notes that she felt very well for the couple days after. Monday however, the patient noted difficulty with nausea, vomiting and diarrhea. She states she was unable to keep any food down. She was evaluated in the ER and found to be hypotensive and tachycardic. This improved after hydration. Objective - Vital Signs Vital signs: Vital Signs Temp 98.0 F 10/16/18 03:43 Pulse 92 10/16/18 03:43 Resp 18 10/16/18 03:43 BP 109/73 10/16/18 03:43 Pulse Ox 100 10/16/18 03:43 Intake & Output 10/15/18 10/16/18 10/16/18 18:59 06:59 18:59 Intake Total 2039 Balance 2039 Weight 65.317 kg 65.317 kg Intake: Intake, IV Titration 960 Amount Sodium Chloride 0.9% 1, 960 000 ml @ 80 mls/hr IV . [id number] [facility] Rx#:[id number] Oral 1080 Other: Voiding Method Toilet Bedside Commode Bedside Commode # Voids 4 - Constitutional General appearance: Present: no acute distress - EENT Eyes: Present: EOMI, PERRLA - Neck Neck: Absent: lymphadenopathy - Respiratory Respiratory: bilateral: CTA - Cardiovascular Rhythm: regular - Gastrointestinal General gastrointestinal: Absent: tenderness - Integumentary Integumentary: Absent: calor - Neurologic Neurologic: Present: CNII-XII intact - Psychiatric Psychiatric: Present: A&O x's 3. Absent: appropriate affect - Labs CBC & Chem 7: 10/16/18 05:30 10/16/18 05:30 Labs: Abnormal Lab Results - Last 24 Hours (Table) 10/16/18 10/16/18 Range/Units 05:30 05:30 RBC 2.62 L (3.80-5.40) m/uL Hgb 7.2 L D (11.4-16.0) gm/dL Hct 23.0 L (34.0-46.0) % RDW 20.6 H (11.5-15.5) % Lymphocytes # 0.4 L (1.0-4.8) k/uL Chloride 116 H (98-107) mmol/L Carbon Dioxide 19 L (22-30) mmol/L Assessment and Plan Plan: Metastatic adenocarcinoma of the lung - admitted complaining of dehydration, nausea/vomiting and diarrhea - chemotherapy this past week. 1. Dehydration: Patient improved after IV fluids. C.dif test was ordered. Possibly related to recent chemotherapy. Diarrhea could also result from pelvic radiotherapy, but would be unlikely to cause nausea. 2. Vaginal bleeding: Improved, patient has completed 3/5 radiotherapy treatments. She will miss today due to her ER stay. I explained to the patient it is OK if she misses 1-2 treatments, we will make it up on the back-end. Will await c.dif testing. Time with Patient: Less than 30
[2018-10-16] MEDS: PANTOPRAZOLE 40 MG/10 ML VIAL IVP SCH ×2 (13:05→22:36)
[2018-10-16] MEDS: METOCLOPRAMIDE 5 MG/ML 2 ML VIAL IVP SCH ×2 (13:06→17:18)
--- NOTE | 2018-10-16 14:47 | PN ---
PROGRESS NOTE DATE OF SERVICE: 10/16/2018 This 52-year-old woman was admitted with abdominal pain and diarrhea, after radiation and chemotherapy is complaining of nausea also. No chest pain. No palpitations. No fever. The bleeding is improving according to her. PHYSICAL EXAM: Alert and oriented x3, pulse is 111, blood pressure 87/59, respiration 18, temperature 97.9, pulse ox 100% on room air. HEENT: Conjunctivae normal. Oral mucosa moist. NECK: No jugular venous distention. No lymph node enlargement. CARDIOVASCULAR SYSTEMS: S1, S2 muffled. RESPIRATORY: Breath sounds diminished at the bases, a few scattered rhonchi. No crackles. ABDOMEN: Soft, nontender. No mass palpable. LEGS: No edema, no swelling. NEURO: No focal deficits. LABS: WBC 4.3, hemoglobin 7.2, sodium 39, potassium 4.4. ASSESSMENT: 1. Acute abdominal pain with diarrhea with possible acute gastroenteritis, rule out colitis. 2. Hypomagnesemia. 3. Anemia secondary to chemotherapy. 4. Dehydration secondary to diarrhea, present on admission. 5. Lung cancer with multiple METS to peritoneum as well as causing possible genitourinary bleeding. 6. History of axillary abscess previously. 7. Ovarian tumor possibly indicating metastasis to the lungs. 8. History of pulmonary embolus. 9. History of gastroesophageal reflux disease. 10.Hypertension. 11.Hyperlipidemia. 12.History of myocardial infarction. 13.History of brain aneurysm. 14.History of anxiety. 15.History of panic disorder. 16.History of nicotine dependence. 17.FULL CODE. RECOMMENDATION: In this 52-year-old woman who presented with multiple medical issues, will monitor the patient closely. Continue with the current medication and symptomatic treatment. Otherwise, at this time I would recommend had Reglan, Protonix dose. I would also suggest 1 unit transfusion if okay with Hematology/Oncology. Otherwise, continue to monitor. Repeat labs. Further recommendation to follow. MMODL / IJN: [id number] /
[2018-10-16] MEDS ORDERED: LORazepam 0.5 MG TAB PO PRN (17:41)
--- NOTE | 2018-10-16 17:45 | P.CONS ---
History of Present Illness - Reason for Consult Consult date: 10/16/18 NSCLC Requesting physician: Huey Maria - Chief Complaint N,V,D - History of Present Illness Ms. Krishna is a very pleasant 52-year-old -Turkmen female with a compli cated past Oncologic history. Presented in 07/28 with a right lung mass, underwent lobectomy 08/28 revealing adenocarcinoma of the lung. She was recommended chemotherapy at that time, but did not follow-up regularly but she remained without evidence of recurrent disease until about 07/31. Incidentally, 05/01 diagnosed with an early-stage laryngeal cancer that was treated with definitive radiation. 07/31 she presented with pelvic mass, liver lesions, as well as omental masses. She was found to have recurrent adenocarcinoma of the lung on the sciatic fluid cytology and liver biopsy. PD-1 was strongly positive. Initiation of treatment was delayed, due to admission for influenza, during which she was found to have a PE. She was started on anticoagulation with eliquis but, then was admitted with vaginal bleeding. This improved with heparin, oral anticoagulation was later able to resumed. She was again admitted on 08/28/18 with complaints of weakness, dehydration and decreased appetite. She did improve with supportive care, and received her first cycle of chemotherapy with carboplatin and Alimta inpatient 08/31/18. She has had numerous recent admissions. Last September 10 for complaints of weakness, and apparently passed out when getting up from the sofa. She is admitted for N,V,D, weakness. Denied fever, chills, mild oral irritation, no painful swallowing no difficulty swallowing, chest pain cough, hemoptysis, difficulty in breathing, moderate abdominal discomfort, generalized, cramping in nature, denies bloody, dark or mucus stools, she does have nausea that she states is treated better with her pain medications, denies dysuria, hematuria, swelling in the lower extremities, patient is still able to ambulate independently, no activity intolerance, She had cycle 3 of Carboplatin, Alimta and Keytruda on 10/12/18 (3rd cycle of chemo, 2nd immunotherapy) Review of Systems 14 point review of systems is negative except as stated in HPI Past Medical History Past Medical History: Cancer, GERD/Reflux, Hyperlipidemia, Hypertension, Myocardial Infarction ([place]) Additional Past Medical History / Comment(s): BRAIN ANEURSYM, [place] 2012, LUNG CA diagnosed 2014, CARPAL TUNNEL RIGHT WRIST, throat CA dx apr 2018 Last Myocardial Infarction Date:: 04/30/2013 History of Any Multi-Drug Resistant Organisms: None Reported Past Surgical History: Heart Catheterization, Orthopedic Surgery, Tubal Ligation, Uterine Ablation Additional Past Surgical History / Comment(s): ANGIOPLASTY FOR BRAIN ANEURSYM, CARPEL TUNNEL RIGHT WRIST , and laparoscopy, PARTIAL RIGHT LUNG REMOVAL ,PTCA, Past Anesthesia/Blood Transfusion Reactions: No Reported Reaction Past Psychological History: Anxiety, Panic Disorder Smoking Status: Never smoker Past Alcohol Use History: None Reported Additional Past Alcohol Use History / Comment(s): Patient was a smoker and quit in April 2018. She denies any marijuana, illicit drug use or alcohol use. Her daughter is living with her. She is on disability. Past Drug Use History: None Reported - Past Family History Mother Family Medical History: Cancer Father Family Medical History: Cancer Medications and Allergies Home Medications Medication Instructions Recorded Confirmed Type Folic Acid 1 mg PO DAILY #30 tab 08/24/18 10/15/18 Rx Pantoprazole Sodium [Protonix] 40 mg PO DAILY #30 tablet. 08/24/18 10/15/18 Rx Ondansetron [Zofran ODT] 4 mg PO Q8HR 08/30/18 10/15/18 History Acetaminophen Tab [Tylenol] 650 mg PO Q6HR PRN tab 09/01/18 10/15/18 Rx Atorvastatin [Lipitor] 80 mg PO HS tab 09/01/18 10/15/18 Rx Megestrol [Megace] 400 mg PO DAILY #30 cup 09/01/18 10/15/18 Rx Docusate [Colace] 100 mg PO BID PRN #60 capsule 09/09/18 10/15/18 Rx Magnesium Oxide [Mag-Ox] 400 mg PO DAILY #3 tab 09/09/18 10/15/18 Rx Sennosides [Senna] 8.6 mg PO HS PRN #60 tablet 09/09/18 10/15/18 Rx Lidocaine Viscous [Xylocaine 30 ml PO TID #300 ml 09/25/18 10/15/18 Rx Viscous 2%] Nystatin 100,000 Unit/ml Susp 3,000,000 unit PO TID #30 cup 09/25/18 10/15/18 Rx [Mycostatin Oral Susp] Apixaban [Eliquis] 5 mg PO BID 09/29/18 10/15/18 History oxyCODONE-APAP 10-325MG [Percocet 1 tab PO QID PRN 10/11/18 10/15/18 History 10-325 mg] Allergies Allergy/AdvReac Type Severity Reaction Status Date / Time Penicillins Allergy Unknown Verified 10/15/18 09:38 Childhood Physical Exam Vitals: Vital Signs Temp Pulse Pulse Resp BP BP Pulse Ox 10/16/18 17:09 98.7 F 95 18 109/72 10/16/18 11:33 97.9 F 111 H 18 87/59 100 10/16/18 03:43 98.0 F 92 18 109/73 100 10/15/18 19:43 98.1 F 93 16 104/70 100 Intake and Output 10/16/18 10/16/18 10/16/18 06:59 14:59 22:59 Intake Total 1180 0 Balance 1180 0 Intake: Intake, IV Titration 640 Amount Sodium Chloride 0.9% 1, 640 000 ml @ 80 mls/hr IV . [id number] FORMERLY [facility], 1928–1983 Rx#:[id number] Oral 540 Blood Product 0 Rc As-1 Unit 0 [id number] Other: Voiding Method Bedside Commode Bedside Commode # Voids 4 Weight 65.317 kg - Constitutional General appearance: average body habitus, cooperative, no acute distress - EENT Eyes: anicteric sclerae, EOMI, normal appearance ENT: hearing grossly normal, normal oropharynx - Neck Neck: no lymphadenopathy - Respiratory Respiratory: bilateral: diminished - Cardiovascular mild tachycardia, regular rhythm Heart sounds: normal: S1, S2 - Gastrointestinal General gastrointestinal: normal bowel sounds, soft, tenderness - Neurologic Neurologic: CNII-XII intact - Musculoskeletal Musculoskeletal: generalized weakness, strength equal bilaterally - Psychiatric Psychiatric: A&O x's 3, appropriate affect, intact judgment & insight Results CBC & Chem 7: 10/16/18 05:30 10/16/18 05:30 Labs: Abnormal Lab Results - Last 24 Hours (Table) 10/16/18 10/16/18 10/16/18 Range/Units 05:30 05:30 14:20 RBC 2.62 L (3.80-5.40) m/uL Hgb 7.2 L D (11.4-16.0) gm/dL Hct 23.0 L (34.0-46.0) % RDW 20.6 H (11.5-15.5) % Lymphocytes # 0.4 L (1.0-4.8) k/uL Chloride 116 H (98-107) mmol/L Carbon Dioxide 19 L (22-30) mmol/L Crossmatch See Detail Assessment and Plan (1) Anemia Narrative/Plan: Has been chronic since starting chemotherapy. Patient runs between 7 and 8. Patient's anemia workup was performed late last month, she has evidence of anemia of inflammation with a significantly elevated ferritin in the thousands. No supplementation at this time. Continue folic acid. No need for transfusion unless hemoglobin falls below 7 or if patient is symptomatic Current Visit: Yes Status: Acute Priority: Medium Code(s): D64.9 - ANEMIA, UNSPECIFIED SNOMED Code(s): 515129644 (2) Failure to thrive Narrative/Plan: Patient continues to struggle with nausea, vomiting and diarrhea post chemotherapy, s/p third cycle. We will continue to work with symptoms and optimize supportive medications. We will have Dietitian and PT meet with her. facility service manager was given prescription for a wheeled seated walker. Diagnosis metastatic non-small cell lung adenocarcinoma, pt is unable to ambulate 20 feet without having to stop and rest Current Visit: Yes Status: Acute Priority: High Code(s): ZGP8933 - SNOMED Code(s): 33945099 (3) Metastatic lung cancer (metastasis from lung to other site) Narrative/Plan: Patient is status post 3 cycles of carbo, Alimta and keytruda with rather poor tolerance. She may have to be considered for dose reduction of chemo. She had treatment Monday. She is not due for 3 weeks. We will see if we can improve her symptoms. She will follow-up with Dr. Fatima for consideration of dose reductions Current Visit: Yes Status: Chronic Priority: Medium Code(s): C34.90 - MALIGNANT NEOPLASM OF UNSP PART OF UNSP BRONCHUS OR LUNG SNOMED Code(s): 36825296 (4) Nausea Narrative/Plan: Patient states nausea is actually better when she takes her pain medications. She will continue her pain metastatic dictations when necessary as prescribed. Added Ativan. Current Visit: Yes Status: Acute Priority: High Code(s): R11.0 - NAUSEA SNOMED Code(s): 140585260
[2018-10-16 20:02] VITALS: RESP 18
[2018-10-16] MEDS: ATORVASTATIN 80 MG TAB PO SCH (20:47)
[2018-10-17] MEDS: SODIUM CHLORIDE 0.9% 1,000 ML IV SCH (03:48)
[2018-10-17] MEDS: oxyCODONE-APAP 10-325MG 1 EACH TAB PO PRN ×2 (03:50→09:49)
[2018-10-17 08:11] LABS: Anisocytosis Slight; Basophils % (A) 0 %; Eosinophils # (A) 0.1 k/uL (0-0.7); Eosinophils % (A) 1 %; HCT 26.3 % (34.0-46.0); HGB 8.4 gm/dL (11.4-16.0); Hypochromasia Moderate; Lymphocytes # (A) 0.4 k/uL (1.0-4.8); Lymphocytes % (A) 12 %; MCH 27.6 pg (25.0-35.0); MCHC 31.8 g/dL (31.0-37.0); MCV 86.9 fL (80.0-100.0); Mean Platelet Volume 7.7; Monocytes # (A) 0.1 k/uL (0-1.0); Monocytes % (A) 1 %; Neutrophils # (A) 2.9 k/uL (1.3-7.7); Neutrophils % (A) 84 %; Platelet Count 280 k/uL (150-450); Poikilocytosis Slight; RBC 3.03 m/uL (3.80-5.40); RDW 19.6 % (11.5-15.5); WBC 3.4 k/uL (3.8-10.6)
[2018-10-17 08:26] LABS: African American GFR (CKD) >90 (>60 ml/min/1.73 sqM); Anion Gap 6 mmol/L; Blood Urea Nitrogen 8 mg/dL (7-17); Carbon Dioxide 18 mmol/L (22-30); Chloride 116 mmol/L (98-107); Glucose 77 mg/dL (74-99); Magnesium 1.6 mg/dL (1.6-2.3); Potassium 4.4 mmol/L (3.5-5.1); Sodium 140 mmol/L (137-145)
[2018-10-17] MEDS: METOCLOPRAMIDE 5 MG/ML 2 ML VIAL IVP SCH (08:57)
[2018-10-17] MEDS: ONDANSETRON ODT 4 MG TAB PO SCH (08:58)
[2018-10-17] MEDS: PANTOPRAZOLE 40 MG/10 ML VIAL IVP SCH (08:58)
[2018-10-17] MEDS: FOLIC ACID 1 MG TAB PO SCH (08:58)
[2018-10-17] MEDS: APIXABAN 5 MG TAB PO SCH (08:58)
[2018-10-17] MEDS: MAGNESIUM OXIDE 400 MG TAB PO SCH (08:58)
[2018-10-17] MEDS: LIDOCAINE VISCOUS 300 MG/15 ML CUP MUCOUS MEM SCH (08:59)
[2018-10-17] MEDS: MEGESTROL 400 MG/10 ML CUP PO SCH (08:59)
[2018-10-17] MEDS: NYSTATIN 100,000 UNIT/ML SUSP 500,000 UNIT/5 ML CUP PO SCH (08:59)
[2018-10-17] MEDS ORDERED: guaiFENesin 600 MG TABLET.ER PO SCH (10:30)
[2018-10-17 11:34] VITALS: BP 136/87; PULSE 97; TEMP 98.2
[2018-10-17] MEDS ORDERED: PANTOPRAZOLE 40 MG TABLET PO SCH (21:00)
--- NOTE | 2018-10-18 07:24 | DS ---
DISCHARGE SUMMARY DATE OF SERVICE: 10/17/2018 FINAL DIAGNOSES: 1. Acute abdominal pain with diarrhea with possible acute gastroenteritis, possibly chemotherapy induced or radiation induced. 2. Hypomagnesemia. 3. Anemia secondary to chemotherapy. 4. Dehydration secondary to diarrhea, present on admission. 5. Lung cancer with multiple METS to the peritoneum as well as causing possible genitourinary bleeding, status post radiation therapy. 6. History of axillary abscess previously. 7. Ovarian tumor possibly indicating metastasis from the lungs. 8. History of pulmonary embolism. 9. History of gastroesophageal reflux disease. 10.Hypertension. 11.Hyperlipidemia. 12.History of myocardial infarction. 13.History of brain aneurysm. 14.History of anxiety. 15.History of panic disorder. 16.History of nicotine dependence. 17.FULL CODE. DISCHARGE DISPOSITION: The patient will be discharged in stable condition with guarded prognosis. Total time taken 35 minutes. HISTORY OF PRESENT ILLNESS: This is a 52-year-old woman with a past medical history of multiple medical problems, was admitted with abdominal pain, diarrhea after a course of radiation therapy and chemotherapy as given for the above mentioned multiple complex medical issues as listed above. The patient was treated symptomatically. Patient improved significantly. Dr. Olmedo and Dr. Gunter saw the patient. Recommended outpatient followup. On exam, vitals are stable. CARDIOVASCULAR: S1, S2. ABDOMEN: Soft. NERVOUS SYSTEM: No focal deficits. DISCHARGE ADVICE AND MEDICATIONS: 1. Diet is soft, bland. 2. Activity limited until followup. 3. Follow up with Dr. Latisha Ziegler in 2-3 days. 4. Follow up with Dr. Fatima as recommended. 5. Home care is also being arranged. MEDICATIONS:: 1. Eliquis 5 mg p.o. b.i.d. 2. Percocet 10 mg q.i.d. p.r.n. 3. Zofran 4 mg q.8 p.r.n. 4. Colace 100 mg b.i.d. p.r.n. 5. Folic acid 1 mg p.o. daily. 6. Lipitor 80 mg q.h.s. 7. Magnesium oxide 400 mg p.o. daily. 8. Megace 400 mg p.o. daily. 9. Nystatin 3 million units p.o. t.i.d. 10.Protonix 40 mg p.o. daily. 11.Reglan 5 mg a.c. and at bedtime p.r.n. for nausea. 12.Senna p.r.n. 13.Tylenol p.r.n. Once again, the patient will be discharged in a stable condition with guarded prognosis. Followup labs CBC, BMP with Dr. Latisha Ziegler and Dr. Fatima. PARISHL / ISISN: [id number] / [facility]
== END 2018-10-17 14:32 | disposition home or self-care (01) ==
LOC: EC 09:17 → 3NMEDONC 14:07 → INTOOBSV 10-16 13:51 → OBSVTOIN 10-16 13:51 → UNDODISIN 10-17 14:32
PROVIDERS: ADMIT Hospitalist; ATTEND Hospitalist
DX: R10.9 Unspecified abdominal pain (principal); R19.7 Diarrhea, unspecified; R11.2 Nausea with vomiting, unspecified; C34.90 Malignant neoplasm of unspecified part of unspecified bronchus or lung; C78.6 Secondary malignant neoplasm of retroperitoneum and peritoneum; E86.0 Dehydration; E83.42 Hypomagnesemia; D64.81 Anemia due to antineoplastic chemotherapy; D39.10 Neoplasm of uncertain behavior of unspecified ovary; C14.0 Malignant neoplasm of pharynx, unspecified; K12.30 Oral mucositis (ulcerative), unspecified; E78.5 Hyperlipidemia, unspecified; I10 Essential (primary) hypertension; R62.7 Adult failure to thrive; K21.9 Gastro-esophageal reflux disease without esophagitis; F41.0 Panic disorder [episodic paroxysmal anxiety]; F41.9 Anxiety disorder, unspecified; Z79.01 Long term (current) use of anticoagulants; Z79.891 Long term (current) use of opiate analgesic; Z79.899 Other long term (current) drug therapy; Z88.0 Allergy status to penicillin; Z92.3 Personal history of irradiation; Z86.711 Personal history of pulmonary embolism; I25.2 Old myocardial infarction; Z87.891 Personal history of nicotine dependence; Z90.2 Acquired absence of lung [part of]; Z98.61 Coronary angioplasty status; Z98.51 Tubal ligation status; N93.9 Abnormal uterine and vaginal bleeding, unspecified; Z86.79 Personal history of other diseases of the circulatory system; Z87.2 Personal history of diseases of the skin and subcutaneous tissue; Z80.9 Family history of malignant neoplasm, unspecified
CPT/HCPCS: 96376 ×2; 96361 ×3; 96375 ×2; 96365; 99284; 36415; 86900; 86901; 80053; 80048 ×2; 82150; 83690; 83735 ×3; 85025 ×3; 86850; 86920; G0378 ×4; P9016; J2765 ×2; J3475; S0179; C9113 ×2; J1170

== ENCOUNTER 2018-10-20 21:27 | Observation (INO) | payer OTHER ==
[2018-10-20] MEDS ORDERED: ASPIRIN 81 MG PO STA (21:47)
[2018-10-20] MEDS ORDERED: SODIUM CHLORIDE 0.9% 1,000 ML IV STA (21:47)
--- NOTE | 2018-10-20 21:48 | ED ---
Chest Pain HPI - General Chief Complaint: Chest Pain Stated Complaint: Chest pain Time Seen by Provider: 10/20/18 21:47 Source: patient Mode of arrival: ambulatory Limitations: no limitations - History of Present Illness Initial Comments: Norma Krishna is a 52-year-old female with history of lung cancer with metastases diffuse throughout the abdomen. Patient presents the emergency department today with diffuse abdominal and body pain. Patient reports that since her last radiation she's been unable to eat or drink. Patient reports that she's just headley d weakness she's not tolerating much intake she feels like her oral Percocet are not helping the pain. Patient reports that today she just couldn't take it anymore so she came to the ER for evaluation. Patient states she is scheduled to see a pain management doctor on Monday however she cannot wait until then. - Related Data Home Medications Medication Instructions Recorded Confirmed Ondansetron [Zofran ODT] 4 mg PO Q8HR 08/30/18 10/20/18 Apixaban [Eliquis] 5 mg PO BID 09/29/18 10/20/18 oxyCODONE-APAP 10-325MG [Percocet 1 tab PO QID PRN 10/11/18 10/20/18 10-325 mg] Previous Rx's Medication Instructions Recorded Folic Acid 1 mg PO DAILY #30 tab 08/24/18 Pantoprazole Sodium [Protonix] 40 mg PO DAILY #30 tablet.dr 08/24/18 Acetaminophen Tab [Tylenol] 650 mg PO Q6HR PRN tab 09/01/18 Atorvastatin [Lipitor] 80 mg PO HS tab 09/01/18 Megestrol [Megace] 400 mg PO DAILY #30 cup 09/01/18 Docusate [Colace] 100 mg PO BID PRN #60 capsule 09/09/18 Magnesium Oxide [Mag-Ox] 400 mg PO DAILY #3 tab 09/09/18 Sennosides [Senna] 8.6 mg PO HS PRN #60 tablet 09/09/18 Lidocaine Viscous [Xylocaine 30 ml PO TID #300 ml 09/25/18 Viscous 2%] Nystatin 100,000 Unit/ml Susp 3,000,000 unit PO TID #30 cup 09/25/18 [Mycostatin Oral Susp] Metoclopramide [Reglan] 5 mg PO ACHS PRN #20 tab 10/17/18 Allergies Allergy/AdvReac Type Severity Reaction Status Date / Time Penicillins Allergy Unknown Verified 10/20/18 21:42 Childhood Review of Systems ROS Statement: Those systems with pertinent positive or pertinent negative responses have been documented in the HPI. ROS Other: All systems not noted in ROS Statement are negative. EKG Findings - EKG Comments: EKG Findings:: EKG was obtained due to complaint of generalized weakness and tachycardia, EKG was obtained at 2147 rate is 105, rhythm is sinus tachycardia there is normal axis there are normal intervals, MA 114, QRS 74, QT 326, QTC 4:30 there are no acute ST elevations or depressions no evidence of acute ischemia or infarction. Past Medical History Past Medical History: Cancer, GERD/Reflux, Hyperlipidemia, Hypertension, Myocard ial Infarction ([place]) Additional Past Medical History / Comment(s): [place]IN [place]M, [place] 2012, LUNG CA diagnosed 2014, CARPAL TUNNEL RIGHT WRIST, throat CA dx apr 2018 Last Myocardial Infarction Date:: 04/30/2013 History of Any Multi-Drug Resistant Organisms: None Reported Past Surgical History: Heart Catheterization, Orthopedic Surgery, Tubal Ligation, Uterine Ablation Additional Past Surgical History / Comment(s): ANGIOPLASTY FOR BRAIN ANEURSYM, CARPEL TUNNEL RIGHT WRIST , and laparoscopy, PARTIAL RIGHT LUNG REMOVAL ,PTCA, Past Anesthesia/Blood Transfusion Reactions: No Reported Reaction Past Psychological History: Anxiety, Panic Disorder Smoking Status: Never smoker Past Alcohol Use History: None Reported Past Drug Use History: None Reported - Past Family History Mother Family Medical History: Cancer Father Family Medical History: Cancer General Exam - General Exam Comments Initial Comments: Physical Exam GENERAL: Chronically ill-appearing cancer patient, appears much older than stated age HENT: Normocephalic, Atraumatic. EYES: PERRL, EOMI PULMONARY: Unlabored respirations. CARDIOVASCULAR: Tachycardic, regular ABDOMEN: Soft and nontender with normal bowel sounds. SKIN: Dry, skin tenting : Deferred NEUROLOGIC: Patient is alert and oriented x3. Moving all extremities spontaneously MUSCULOSKELETAL: Generalized weakness PSYCHIATRIC: Normal psychiatric evaluation Limitations: no limitations Course Vital Signs 10/20/18 10/20/18 10/21/18 21:35 22:24 00:10 Temperature 99.3 F Pulse Rate 124 H 96 97 Respiratory 24 16 16 Rate Blood Pressure 107/75 134/91 134/91 O2 Sat by Pulse 100 100 98 Oximetry 10/21/18 00:59 Temperature Pulse Rate 88 Respiratory 18 Rate Blood Pressure 101/72 O2 Sat by Pulse 100 Oximetry Chest Pain MDM - MDM Patient was seen and evaluated, history was obtained from the patient, family at bedside and review of medical record This 52-year-old female with metastatic lung cancer presenting with generalized weakness, abdominal pain, nausea, decreased by mouth intake all after radiation therapy. Patient's concern that she is dehydrated and is in significant pain Labs and imaging were ordered IV fluids were infusing Patient was given Dilaudid Upon reevaluation patient reports her pain is much better she's very itchy from the Dilaudid she would like some Benadryl. Patient's labs resulted with neutropenia, hypokalemia, hypo-magnesium via, concern for dehydration Patient still having some mild pain repeat dose of Dilaudid was ordered. At this time I do feel the patient warrants admission to the hospital for pain management and electrolyte replacement and fluid rehydration. Patient is agreeable with this plan. The patient's laboratory evaluations PTT was elevated, however the blood draw was taken from her port and this is likely due to previous flushing with heparin. In addition d-dimer was elevated this is likely related to her cancer. At this time the patient doesn't have any tachycardia, hypoxia or shortness of breath. I will not pursue further evaluation for any pulmonary embolism. Disposition Clinical Impression: Tachycardia, Malignant ascites, Abdominal pain, Nausea, Anemia, Ascites, At ris k for readmission to hospital, Dehydration, Cancer associated pain, Hypomagnesemia, Hypokalemia Disposition: ADMITTED IP TO THIS HOSP Condition: Stable Referrals: Latisha Ziegler MD [Primary Care Provider] - 1-2 days
[2018-10-20] MEDS ORDERED: HYDROmorphone 1 MG/ML 1 ML SYRINGE IVP STA (22:33)
[2018-10-20 22:34] LABS: Anisocytosis Slight; HGB 10.9 gm/dL (11.4-16.0); Hypochromasia Slight; MCV 84.8 fL (80.0-100.0); Mean Platelet Volume 7.4; RBC 3.89 m/uL (3.80-5.40); RDW 19.5 % (11.5-15.5); WBC 1.8 k/uL (3.8-10.6)
[2018-10-20 22:37] LABS: Platelet Count 135 k/uL (150-450)
[2018-10-20 22:39] LABS: ALT 33 U/L (9-52); AST 31 U/L (14-36); African American GFR (CKD) >90 (>60 ml/min/1.73 sqM); Albumin 3.2 g/dL (3.5-5.0); Alkaline Phosphatase 89 U/L (38-126); Anion Gap 9 mmol/L; Blood Urea Nitrogen 8 mg/dL (7-17); Calcium 8.3 mg/dL (8.4-10.2); Carbon Dioxide 16 mmol/L (22-30); Chloride 115 mmol/L (98-107); Glucose 92 mg/dL (74-99); Magnesium 1.3 mg/dL (1.6-2.3); Potassium 3.3 mmol/L (3.5-5.1); Sodium 140 mmol/L (137-145); Total Bilirubin 0.2 mg/dL (0.2-1.3); Total Protein 6.5 g/dL (6.3-8.2)
[2018-10-20 22:57] LABS: INR 2.4 (<1.2); Prothrombin Time 23.5 sec (9.0-12.0)
--- NOTE | 2018-10-20 22:57 | XR ---
EXAM: XR Chest, 2 Views CLINICAL HISTORY: ITS.REASON XR Reason: Chest Pain TECHNIQUE: Frontal and lateral views of the chest. COMPARISON: 10/11/18 FINDINGS: Lungs: Unremarkable. No consolidation. Pleural space: Tiny right pleural effusion versus pleural thickening. No pneumothorax. Heart: Unremarkable. No cardiomegaly. Mediastinum: Unremarkable. Bones/joints: Unremarkable. Tubes, lines and devices: Stable right-sided MediPort catheter. IMPRESSION: Tiny right pleural effusion versus pleural thickening.
[2018-10-20 23:02] LABS: Partial Thromboplastin Time >200.0 sec (22.0-30.0)
[2018-10-20 23:08] LABS: Eosinophils # (M) 0.09 k/uL (0-0.7); Lymphocytes # (M) 0.47 k/uL (1.0-4.8); Monocytes # (M) 0.23 k/uL (0-1.0); Neutrophils # (M) 1.01 k/uL (1.3-7.7); Neutrophils % (M) 56 %; Nucleated Red Blood Cells 0 /100 WBC (0-0); Total Cells Counted 100
[2018-10-20 23:09] LABS: Poikilocytosis (M) Present
[2018-10-21] MEDS ORDERED: diphenhydrAMINE 50 MG/ML 1 ML VIAL IVP STA (01:11)
[2018-10-21] MEDS ORDERED: HYDROmorphone 1 MG/ML 1 ML SYRINGE IVP STA (01:11)
[2018-10-21] MEDS ORDERED: ACETAMINOPHEN TAB 325 MG TAB PO PRN (01:38)
[2018-10-21] MEDS ORDERED: NALOXONE 0.4 MG/ML 1 ML VIAL IV PRN (01:38)
[2018-10-21] MEDS ORDERED: IBUPROFEN 400 MG TAB PO PRN (01:38)
[2018-10-21] MEDS ORDERED: DOCUSATE 100 MG CAP PO PRN (01:40)
[2018-10-21] MEDS ORDERED: METOCLOPRAMIDE 5 MG TAB PO PRN (01:40)
[2018-10-21] MEDS: MAGNESIUM SULFATE-D5W PMX 1 GM in DEXTROSE/WATER 1 100ML.BAG IVPB SCH ×2 (02:47→03:45)
[2018-10-21] MEDS: SODIUM CHLORIDE 0.9% 1,000 ML IV SCH ×3 (03:50→20:36)
[2018-10-21] MEDS: POTASSIUM CHLORIDE 10 MEQ in WATER FOR INJECTION 1 100ML.BAG IVPB SCH ×2 (07:41→08:40)
[2018-10-21] MEDS: MEGESTROL 400 MG/10 ML CUP PO SCH (08:40)
[2018-10-21] MEDS: LIDOCAINE VISCOUS 300 MG/15 ML CUP MUCOUS MEM SCH ×4 (08:40→20:36)
[2018-10-21] MEDS: APIXABAN 5 MG TAB PO SCH ×2 (08:40→20:34)
[2018-10-21] MEDS: MAGNESIUM OXIDE 400 MG TAB PO SCH (08:40)
[2018-10-21] MEDS: HYDROmorphone 1 MG/ML 1 ML SYRINGE IVP PRN ×4 (08:46→23:20)
[2018-10-21] MEDS ORDERED: PANTOPRAZOLE 40 MG TABLET PO SCH (09:00)
[2018-10-21 11:33] LABS: Anisocytosis Slight; Basophils % (A) 0 %; Eosinophils # (A) 0.1 k/uL (0-0.7); Eosinophils % (A) 8 %; HCT 26.2 % (34.0-46.0); Hypochromasia Slight; Lymphocytes # (A) 0.3 k/uL (1.0-4.8); Lymphocytes % (A) 19 %; MCH 27.7 pg (25.0-35.0); MCV 86.6 fL (80.0-100.0); Mean Platelet Volume 7.2; Monocytes # (A) 0.2 k/uL (0-1.0); Monocytes % (A) 12 %; Neutrophils # (A) 0.8 k/uL (1.3-7.7); Neutrophils % (A) 55 %; Platelet Count 129 k/uL (150-450); RBC 3.03 m/uL (3.80-5.40); RDW 19.1 % (11.5-15.5); WBC 1.5 k/uL (3.8-10.6)
[2018-10-21 11:39] LABS: HGB 8.4 gm/dL (11.4-16.0)
[2018-10-21 11:45] LABS: ALT 38 U/L (9-52); AST 31 U/L (14-36); African American GFR (CKD) >90 (>60 ml/min/1.73 sqM); Alkaline Phosphatase 80 U/L (38-126); Anion Gap 7 mmol/L; Blood Urea Nitrogen 7 mg/dL (7-17); Calcium 8.7 mg/dL (8.4-10.2); Carbon Dioxide 17 mmol/L (22-30); Chloride 113 mmol/L (98-107); Glucose 95 mg/dL (74-99); Potassium 4.7 mmol/L (3.5-5.1); Sodium 137 mmol/L (137-145); Total Bilirubin 0.3 mg/dL (0.2-1.3)
[2018-10-21] MEDS ORDERED: SENNOSIDES 8.6 MG TAB PO PRN (14:46)
[2018-10-21] MEDS ORDERED: TEMAZEPAM 15 MG CAP PO PRN (14:47)
[2018-10-21] MEDS ORDERED: ALPRAZolam 0.25 MG TAB PO PRN (14:47)
[2018-10-21] MEDS: PANTOPRAZOLE 40 MG/10 ML VIAL IVP SCH ×2 (16:52→20:36)
[2018-10-21] MEDS: ONDANSETRON ODT 4 MG TAB PO SCH ×2 (16:52→23:19)
[2018-10-21] MEDS: NYSTATIN 100,000 UNIT/ML SUSP 500,000 UNIT/5 ML CUP PO SCH ×2 (16:53→20:36)
--- NOTE | 2018-10-21 18:17 | HP ---
HISTORY AND PHYSICAL DATE OF SERVICE: 10/21/2018 CHIEF COMPLAINTS: Epigastric and chest pain. HISTORY OF PRESENT ILLNESS: This is a 52-year-old woman with a past medical history of multiple medical problems including history of metastatic lung cancer was recently admitted with abdominal pain, diarrhea, possibly gastroenteritis secondary to radiation chemotherapy. Patient also had vaginal bleeding and possibly secondary to lung mets. The patient also had history of pulmonary embolism, GERD, hypertension, hyperlipidemia. The patient presented yesterday to the ER with complaints of diffuse abdominal pain, epigastric pain which radiated to the upper part of the chest and left shoulder, left forearm and the patient came to [facility] and admitted for evaluation and treatment. The pain was not helped by oral Percocet at this time. There is no history of palpitations. No history of shortness of breath. No history of any associated symptoms or radiation of pain elsewhere. The patient is followed by Dr. Latisha Ziegler in the outpatient setting. PAST MEDICAL HISTORY: History of metastatic lung cancer, GERD, hyperlipidemia, hypertension, myocardial infarction, history of pulmonary embolism, anxiety, panic disorder. MEDICATIONS: Prior to admission: 1. Oxycodone 10 mg q.i.d. p.r.n. 2. Senna 8.6 q.h.s. 3. Protonix 40 mg p.o. daily. 4. Zofran 4 mg q.8 p.r.n. 5. Mycostatin 3 million units p.o. t.i.d. 6. Reglan 5 mg q.a.c. and at bedtime p.r.n. 7. Megace 400 mg p.o. daily. 8. Magnesium oxide 400 mg p.o. daily. 9. Celexa 30 mg p.o. t.i.d. 10.Folic acid 1 mg p.o. daily. 11.Colace 100 mg p.o. b.i.d. p.r.n. 12.Lipitor 80 mg q.h.s. 13.Eliquis 5 mg p.o. b.i.d. 14.Tylenol 650 q.6h p.r.n. ALLERGIES: PENICILLIN. FAMILY HISTORY: History of cancer in the family. SOCIAL HISTORY: No history of smoking, no history of alcohol. REVIEW OF SYSTEMS: ENT: No diminished hearing or vision. CARDIOVASCULAR SYSTEM: As mentioned. RESPIRATORY: As mentioned earlier. GI: As mentioned. : No dysuria. NERVOUS SYSTEM: No numbness weakness. ALLERGY/IMMUNOLOGY: No asthma, hayfever. MUSCULOSKELETAL: As mentioned earlier. HEMATOLOGY: As mentioned. ENDOCRINE: No history of diabetes or hypothyroid. CONSTITUTIONAL: As mentioned earlier. DERMATOLOGY: Negative. RHEUMATOLOGY: Negative. PSYCHIATRY: As mentioned. PHYSICAL EXAMINATION: Alert, oriented x3. Pulse 89, blood pressure 100/69, respiration 18, temperature 98 degrees, pulse ox 100 percent on room air. HEENT: Conjunctivae normal. Oral mucosa moist. Neck is no jugular venous distention. No carotid bruit. No lymph node enlargement. CARDIOVASCULAR: S1, S2. RESPIRATORY: Breath sounds diminished in the bases. A few scattered rhonchi, no crackles. ABDOMEN: Soft. Mild diffuse tenderness and discomfort in the epigastrium. No mass palpable. No guarding. No rigidity. LEGS: No edema, no swelling. NERVOUS SYSTEM: Higher function as mentioned. Moves all 4 limbs. No focal motor or sensory deficits. LYMPHATIC: No lymphadenopathy in the neck, axillae, groin. SKIN: No ulcer, rashes or bleeding. JOINTS: No active deforming arthropathy. LABS: At this time shows: WBC 1.2, hemoglobin is 8.4, platelets 129. Other labs are noted. ASSESSMENT: 1. Epigastric and chest pain for evaluation possible gastroesophageal reflux disease, rule out coronary artery disease. 2. History of lung cancer with multiple metastasis to the peritoneum as well as causing genitourinary bleeding, status post radiation therapy and chemotherapy. 3. History of recent abdominal pain secondary to secondary to gastroenteritis and possibly chemotherapy radiation induced. 4. Anemia secondary to chemotherapy. 5. History of axillary abscess previously. 6. Ovarian tumor possibly indicating metastatic from the lungs. 7. History of pulmonary embolism. 8. History of gastroesophageal reflux disease. 9. Hypertension. 10.Hyperlipidemia. 11.History of myocardial infarction. 12.History of brain aneurysm. 13.History of anxiety. 14.History of panic disorder. 15.History of nicotine dependence. 16.FULL CODE. RECOMMENDATIONS AND DISCUSSION: I recommend to continue current management and symptomatic treatment. I recommend proton pump inhibitors. Cardiology and Gastroenterology consultations. Resume the home medications. Otherwise overall prognosis guarded because of multiple complex medical issues. Further recommendations to follow. Copy of dictation forwarded to Dr. Latisha Ziegler, who is the primary physician. MMODL / IJN: [id number] / ATIF
[2018-10-21] MEDS: ATORVASTATIN 80 MG TAB PO SCH (20:34)
[2018-10-21] MEDS: oxyCODONE-APAP 5-325MG 1 EACH TAB PO PRN (20:39)
[2018-10-22] MEDS: HYDROmorphone 1 MG/ML 1 ML SYRINGE IVP PRN ×4 (05:19→20:53)
[2018-10-22 07:13] LABS: African American GFR (CKD) >90 (>60 ml/min/1.73 sqM); Anion Gap 5 mmol/L; Blood Urea Nitrogen 6 mg/dL (7-17); Calcium 8.8 mg/dL (8.4-10.2); Carbon Dioxide 18 mmol/L (22-30); Chloride 117 mmol/L (98-107); Glucose 86 mg/dL (74-99); Magnesium 1.7 mg/dL (1.6-2.3); Potassium 4.4 mmol/L (3.5-5.1); Sodium 140 mmol/L (137-145)
[2018-10-22 08:32] LABS: Anisocytosis Slight; HGB 8.1 gm/dL (11.4-16.0); Hypochromasia Slight; MCH 28.4 pg (25.0-35.0); MCHC 32.5 g/dL (31.0-37.0); MCV 87.2 fL (80.0-100.0); Mean Platelet Volume 7.8; Platelet Count 104 k/uL (150-450); RBC 2.86 m/uL (3.80-5.40); RDW 19.4 % (11.5-15.5); WBC 1.5 k/uL (3.8-10.6)
[2018-10-22 09:27] LABS: Eosinophils # (M) 0.12 k/uL (0-0.7); Lymphocytes # (M) 0.38 k/uL (1.0-4.8); Monocytes # (M) 0.26 k/uL (0-1.0); Neutrophils # (M) 0.75 k/uL (1.3-7.7); Neutrophils % (M) 50 %; Nucleated Red Blood Cells 0 /100 WBC (0-0); Total Cells Counted 100
[2018-10-22] MEDS: PANTOPRAZOLE 40 MG/10 ML VIAL IVP SCH ×2 (09:28→20:50)
[2018-10-22] MEDS: ONDANSETRON ODT 4 MG TAB PO SCH ×3 (09:28→23:25)
[2018-10-22] MEDS: MAGNESIUM OXIDE 400 MG TAB PO SCH (09:28)
[2018-10-22] MEDS: APIXABAN 5 MG TAB PO SCH ×2 (09:28→20:50)
--- NOTE | 2018-10-22 09:28 | P.PN ---
Subjective This is a pleasant 52 years old -Swazi female with past medical history of adenocarcinoma of the lung, status post lobectomy, on 04/2018 patient was diagnosed with stage laryngeal cancer, treated with radiation therapy. On 07/2018, patient was found to have liver lesions and omental masses and pelvic masses and found to have recurrent adenocarcinoma of her lung. On that time patient was found to have pulmonary embolism and she was placed on anticoagulation with some evidence of bleeding per vagina going on. She has tenderness in the lower abdomen for which she got radiotherapy for her metastasis in the pelvis and omentum, her vaginal bleeding has stopped recently since then. And she came in basically because of her epigastric pain radiating to her chest as per patient, she had this pain this morning for which she got pain medication and currently 60/10 in severity, also she complains from voiding a lot but no obvious dysuria. And with some complaining of generalized weakness. She isn't currently on normal saline at 100 L/h for possible gastroenteritis on admission. However this morning she is tolerating her diet well with no nausea vomiting. She has a little loose bowel movements yesterday, however no more bowel movements today so far. During her urinary symptoms and recent history of UTI. We will order urine analysis. Review of systems CONSTITUTIONAL: No fever, no malaise, no fatigue. HEENT: No recent visual problems or hearing problems. Denied any sore throat. CARDIOVASCULAR: No orthopnea, PND, no palpitations, no syncope. PULMONARY: No shortness of breath, no cough, no hemoptysis. GASTROINTESTINAL: Normoactive bowel sounds. NEUROLOGICAL: No headaches, no weakness, no numbness. HEMATOLOGICAL: Denies any bleeding or petechiae. GENITOURINARY: Denies any burning micturition, frequency, or urgency. MUSCULOSKELETAL/RHEUMATOLOGICAL: Denies any joint pain, swelling, or any muscle pain. ENDOCRINE: Denies any polyuria or polydipsia. Medication: Tylenol 650 mg, Xanax 0.25 mg, Eliquis 5 mg, Lipitor 80 mg, Benadryl 25 mg, Colace 100 mg, folic acid 1 mg, Dilaudid 1 mg, Motrin 400 mg, magnesium oxide 400 mg, Reglan 5 mg, nystatin 100,000 units per mL, Percocet 5-325 milligrams, Protonix 40 mg, Senokot 8.6 mg, normal saline at 50 mL per hour, Restoril 50 mg. Objective - Vital Signs Vital signs: Vital Signs Temp 98.6 F 10/22/18 05:00 Pulse 107 H 10/22/18 05:00 Resp 18 10/22/18 05:00 BP 106/71 10/22/18 05:00 Pulse Ox 100 10/22/18 05:00 Intake & Output 10/21/18 10/22/18 10/22/18 18:59 06:59 18:59 Intake Total 240 1410 Balance 240 1410 Intake: Intake, IV Titration 400 Amount Sodium Chloride 0.9% 1, 400 000 ml @ 100 mls/hr IV . Q10H [facility] Rx#:[id number] Oral 240 1010 Other: # Voids 3 2 - Labs CBC & Chem 7: 10/22/18 06:33 10/22/18 06:33 Labs: Abnormal Lab Results - Last 24 Hours (Table) 10/21/18 10/21/18 10/22/18 Range/Units 10:55 10:55 06:33 WBC 1.5 L 1.5 L (3.8-10.6) k/uL RBC 3.03 L 2.86 L (3.80-5.40) m/uL Hgb 8.4 L D 8.1 L (11.4-16.0) gm/dL Hct 26.2 L 25.0 L (34.0-46.0) % RDW 19.1 H 19.4 H (11.5-15.5) % Plt Count 129 L 104 L (150-450) k/uL Neutrophils # 0.8 L (1.3-7.7) k/uL Lymphocytes # 0.3 L (1.0-4.8) k/uL Chloride 113 H (98-107) mmol/L Carbon Dioxide 17 L (22-30) mmol/L BUN (7-17) mg/dL Total Protein 6.0 L (6.3-8.2) g/dL Albumin 3.0 L (3.5-5.0) g/dL 10/22/18 Range/Units 06:33 WBC (3.8-10.6) k/uL RBC (3.80-5.40) m/uL Hgb (11.4-16.0) gm/dL Hct (34.0-46.0) % RDW (11.5-15.5) % Plt Count (150-450) k/uL Neutrophils # (1.3-7.7) k/uL Lymphocytes # (1.0-4.8) k/uL Chloride 117 H (98-107) mmol/L Carbon Dioxide 18 L (22-30) mmol/L BUN 6 L (7-17) mg/dL Total Protein (6.3-8.2) g/dL Albumin (3.5-5.0) g/dL Assessment and Plan Assessment: Gastroenteritis, dehydration. Present on admission. Improvement Recent history of recurrent pulmonary adenocarcinoma, status post lobectomy Recent history of nearly stage laryngeal cancer History of pulmonary embolism on anticoagulation Metastatic disease to the pelvis, liver and omentum, status post radiotherapy vaginal bleeding, controlled Urinary irrigation. Rule out urinary tract infection Generalized weakness Right pleural effusion/thickening, mostly related to her cancer Plan: This is a pleasant 52 years old -Swazi female who presents with dehydration and possible gastroenteritis, with epigastric and chest pain on the top of her lung and laryngeal cancer. Patient on IV fluid and she is tolerating diet well. Cardiology and gastroenterology were consulted and will follow the recommendation. Continue with Protonix. Continue with the liquids. Continue with pain management.Labs and medication were reviewed.. Continue same treatment. Continue with symptomatic treatment. Resume home medication. Monitor lytes and vitals. DVT and GI prophylaxis. Further recommendations of the clinical course of the patient DVT prophylaxis: Eliquis GI Prophylaxis: Protonix PT/OT: Pending Prognosis is guarded
[2018-10-22 09:29] LABS: Poikilocytosis (M) Present
[2018-10-22] MEDS: LIDOCAINE VISCOUS 300 MG/15 ML CUP MUCOUS MEM SCH ×3 (09:29→21:38)
[2018-10-22] MEDS: NYSTATIN 100,000 UNIT/ML SUSP 500,000 UNIT/5 ML CUP PO SCH ×3 (09:29→23:27)
[2018-10-22] MEDS: MEGESTROL 400 MG/10 ML CUP PO SCH (09:30)
[2018-10-22] MEDS: FOLIC ACID 1 MG TAB PO SCH (09:30)
[2018-10-22] MEDS: SODIUM CHLORIDE 0.9% 1,000 ML IV SCH ×2 (09:36→17:47)
[2018-10-22 12:46] VITALS: RESP 16
--- NOTE | 2018-10-22 13:33 | P.CRDCN ---
History of Present Illness History of present illness: This is a pleasant 52-year-old female past medical history significant for metastatic lung cancer s/p radiation, chemotherapy and lobectomy. She also has history of PE, hypertension, dyslipidemia and former nicotine dependence. 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 She states she suffered a heart attack in the past however has no stents or bypass grafting. We have been asked to see her in consultation for cardiac history. She is seen and examined laying flat in bed in no acute distress. She complains of abdominal pain, nausea and diarrhea. Her initial reason for coming to the hospital was significant abdominal discomfort not be relieved by oral Percocet at home. She denies chest pain, shortness of breath, dizziness or palpitations. She follows with Dr. Fatima for oncology and is scheduled to see pain management team tomorrow. EKG reveals sinus tachycardia heart rate of 105 with evidence of LVH. Chest xray reveals tiny right pleural effusion versus pleural thickening. Laboratory data reviewed, WBC 1.5, hgb 8.1, plt 104, D-dimer 1.1, sodium 140, potassium 4.4, creatinine 0.6, magnesium 1.7, cardiac enzymes negative x3. Current cardiac medications include atorvastatin 80 mg daily. Most recent echocardiogram obtained August 2018 reveals preserved LV systolic function with EF 60-65%, mild TR, moderate pulmonary hypertension with RVSP 48 mmHg. At the time of my exam: CONSTITUTIONAL: Denies fever. Denies chills. EYES: Denies blurred vision. Denies vision changes. Denies eye pain. EARS, NOSE, MOUTH & THROAT: Denies headache. Denies sore throat. Denies ear pain. CARDIOVASCULAR: Denies chest pain. Denies shortness of breath. Denies orthopnea. Denies PND. Denies palpitations. RESPIRATORY: Denies cough. GASTROINTESTINAL: Denies abdominal pain. Denies diarrhea. Denies constipation. Denies nausea. Denies vomiting. MUSCULOSKELETAL: Denies myalgias. INTEGUMENTARY: Denies pruitis. Denies rash. NEUROLOGIC: Denies numbness. Denies tingling. Denies weakness. PSYCHIATRIC: Denies anxiety. Denies depression. ENDOCRINE: Denies fatigue. Denies weight change. Denies polydipsia. Denies polyurina. GENITOURINARY: Denies burning, hematuria or urgency with micturation. HEMATOLOGIC: Denies history of anemia. Denies bleeding. Blood pressure 115/75 heart rate 91 afebrile maintaining oxygen saturation on room air GENERAL: This is a 52-year-old -[place] female in no apparent distress at the time of my examination. HEENT: Head is atraumatic, normocephalic. Pupils are equal, round. Sclerae anicteric. Conjunctivae are clear. Mucous membranes of the mouth are moist. Neck is supple. There is no jugular venous distention. No carotid bruit is heard. LUNGS: Clear to auscultation no wheezes, rales or rhonchi. No chest wall tenderness is noted on palpation or with deep breathing. HEART: Regular rate and rhythm without murmurs, rubs or gallops. S1 and S2 heard. ABDOMEN: Soft, nontender. Bowel sounds are heard. No organomegaly noted. EXTREMITIES: No evidence of peripheral edema and no calf tenderness noted. VASCULAR: Radial and dorsalis pedis pulses palpated, no evidence of clubbing. NEUROLOGIC: Patient is awake, alert and oriented x3. ASSESSMENT Abdominal pain with nausea and diarrhea Hypertension Dyslipidemia History of PE on halfway anticoagulation Metastatic lung cancer s/p chemo, radiaiton and lobectomy. History of PE on eliquis PLAN Obtain limited echo to asses LV function and for any pericardial effusion. Ongoing medical management. Thank you for this consultation. Nurse Practitioner note has been reviewed, I agree with a documented findings and plan of care. Patient was seen and examined. Past Medical History Past Medical History: Cancer, GERD/Reflux, Hyperlipidemia, Hypertension, Myocardial Infarction ([place]) Additional Past Medical History / Comment(s): BRAIN ANEURSYM, [place] 2012, LUNG CA diagnosed 2014, CARPAL TUNNEL RIGHT WRIST, throat CA dx apr 2018 Last Myocardial Infarction Date:: 04/30/2013 History of Any Multi-Drug Resistant Organisms: None Reported Past Surgical History: Heart Catheterization, Orthopedic Surgery, Tubal Ligation, Uterine Ablation Additional Past Surgical History / Comment(s): ANGIOPLASTY FOR BRAIN ANEURSYM, CARPEL TUNNEL RIGHT WRIST , and laparoscopy, PARTIAL RIGHT LUNG REMOVAL ,PTCA, Past Anesthesia/Blood Transfusion Reactions: No Reported Reaction Past Psychological History: Anxiety, Panic Disorder Smoking Status: Never smoker Past Alcohol Use History: None Reported Additional Past Alcohol Use History / Comment(s): Patient was a smoker and quit in April 2018. She denies any marijuana, illicit drug use or alcohol use. Her daughter is living with her. She is on disability. Past Drug Use History: None Reported - Past Family History Mother Family Medical History: Cancer Father Family Medical History: Cancer Medications and Allergies Home Medications Medication Instructions Recorded Confirmed Type Folic Acid 1 mg PO DAILY #30 tab 08/24/18 10/20/18 Rx Pantoprazole Sodium [Protonix] 40 mg PO DAILY #30 tablet. 08/24/18 10/20/18 Rx Ondansetron [Zofran ODT] 4 mg PO Q8HR 08/30/18 10/20/18 History Acetaminophen Tab [Tylenol] 650 mg PO Q6HR PRN tab 09/01/18 10/20/18 Rx Atorvastatin [Lipitor] 80 mg PO HS tab 09/01/18 10/20/18 Rx Megestrol [Megace] 400 mg PO DAILY #30 cup 09/01/18 10/20/18 Rx Docusate [Colace] 100 mg PO BID PRN #60 capsule 09/09/18 10/20/18 Rx Magnesium Oxide [Mag-Ox] 400 mg PO DAILY #3 tab 09/09/18 10/20/18 Rx Sennosides [Senna] 8.6 mg PO HS PRN #60 tablet 09/09/18 10/20/18 Rx Lidocaine Viscous [Xylocaine 30 ml PO TID #300 ml 09/25/18 10/20/18 Rx Viscous 2%] Nystatin 100,000 Unit/ml Susp 3,000,000 unit PO TID #30 cup 09/25/18 10/20/18 Rx [Mycostatin Oral Susp] Apixaban [Eliquis] 5 mg PO BID 09/29/18 10/20/18 History oxyCODONE-APAP 10-325MG [Percocet 1 tab PO QID PRN 10/11/18 10/20/18 History 10-325 mg] Metoclopramide [Reglan] 5 mg PO ACHS PRN #20 tab 10/17/18 10/20/18 Rx Allergies Allergy/AdvReac Type Severity Reaction Status Date / Time Penicillins Allergy Unknown Verified 10/20/18 21:42 Childhood Physical Exam Vitals: Vital Signs Temp Pulse Resp BP Pulse Ox 10/22/18 12:44 98.2 F 91 16 115/75 100 06/10/19 05:00 98.6 F 107 H 18 106/71 100 10/22/18 00:00 101 H 18 10/21/18 21:00 98.5 F 101 H 18 109/67 99 10/21/18 15:58 89 18 Intake and Output 10/21/18 10/22/18 10/22/18 22:59 06:59 14:59 Intake Total 820 590 Balance 820 590 Intake: Intake, IV Titration 400 Amount Sodium Chloride 0.9% 1, 400 000 ml @ 100 mls/hr IV . Q10H [facility] Rx#:[id number] Oral 420 590 Other: # Voids 2 2 Results 10/22/18 06:33 10/22/18 06:33 Cardiac Enzymes 10/21/18 10/21/18 Range/Units 17:08 22:37 Troponin I <0.012 <0.012 (0.000-0.034) ng/mL CBC 10/22/18 Range/Units 06:33 WBC 1.5 L (3.8-10.6) k/uL RBC 2.86 L (3.80-5.40) m/uL Hgb 8.1 L (11.4-16.0) gm/dL Hct 25.0 L (34.0-46.0) % Plt Count 104 L (150-450) k/uL Comprehensive Metabolic Panel 10/22/18 Range/Units 06:33 Sodium 140 (137-145) mmol/L Potassium 4.4 (3.5-5.1) mmol/L Chloride 117 H (98-107) mmol/L Carbon Dioxide 18 L (22-30) mmol/L BUN 6 L (7-17) mg/dL Creatinine 0.60 (0.52-1.04) mg/dL Glucose 86 (74-99) mg/dL Calcium 8.8 (8.4-10.2) mg/dL Current Medications Generic Name Dose Route Start Last Admin Trade Name Freq PRN Reason Stop Dose Admin Acetaminophen 650 mg 10/21/18 01:38 Tylenol Tab PO Q6HR PRN Mild Pain or Fever > 100.5 Alprazolam 0.25 mg 10/21/18 14:47 Xanax PO TID PRN Anxiety Apixaban 5 mg 10/21/18 09:00 10/22/18 09:28 Eliquis PO 5 mg BID [facility] Administration Atorvastatin Calcium 80 mg 10/21/18 21:00 10/21/18 20:34 Lipitor PO 80 mg HS [facility] Administration Bisacodyl 10 mg 10/23/18 09:00 Dulcolax PO DAILY [facility] Docusate Sodium 100 mg 10/21/18 01:40 Colace PO BID PRN Constipation Folic Acid 1 mg 10/22/18 09:00 10/22/18 09:30 Folic Acid PO 1 mg DAILY [facility] Administration Hydromorphone HCl 1 mg 10/21/18 01:38 10/22/18 09:20 Dilaudid IVP 1 mg Q3HR PRN Administration Severe Pain Sodium Chloride 1,000 mls @ 100 mls/hr 10/21/18 01:30 10/22/18 09:36 Saline 0.9% IV 100 mls/hr .Q10H [facility] Administration Ibuprofen 400 mg 10/21/18 01:38 Motrin PO Q6HR PRN Mild Pain or Fever > 100.5 Lidocaine HCl 300 mg 10/21/18 09:00 10/22/18 09:29 Xylocaine Viscous 2% MUCOUS MEM Not Given TID [facility] Magnesium Oxide 400 mg 10/21/18 09:00 10/22/18 09:28 Mag-Ox PO 400 mg DAILY [facility] Administration Megestrol Acetate 400 mg 10/21/18 09:00 10/22/18 09:30 Megace PO 400 mg DAILY [facility] Administration Metoclopramide HCl 5 mg 10/21/18 01:40 Reglan PO ACHS PRN Nausea Naloxone HCl 0.2 mg 10/21/18 01:38 Narcan IV Q2M PRN Opioid Reversal Nystatin 500,000 unit 10/21/18 16:00 10/22/18 09:29 Mycostatin Oral Susp PO 500,000 unit TID [facility] Administration Ondansetron HCl 4 mg 10/21/18 16:00 10/22/18 09:28 Zofran Odt PO 4 mg Q8HR [facility] Administration Oxycodone/Acetaminophen 1 each 10/21/18 01:38 10/21/18 20:39 Percocet 5-325 PO 1 each Q4HR PRN Administration Severe Pain Pantoprazole Sodium 40 mg 10/21/18 14:47 10/22/18 09:28 Protonix IVP 40 mg BID [facility] Administration Senna 8.6 mg 10/21/18 14:46 Senokot PO HS PRN Constipation Temazepam 15 mg 10/21/18 14:47 Restoril PO HS PRN Insomnia Intake and Output 10/21/18 10/22/18 10/22/18 22:59 06:59 14:59 Intake Total 820 590 Balance 820 590 Intake: Intake, IV Titration 400 Amount Sodium Chloride 0.9% 1, 400 000 ml @ 100 mls/hr IV . Q10H [facility] Rx#:[id number] Oral 420 590 Other: # Voids 2 2 10/22/18 06:33 10/22/18 06:33
--- NOTE | 2018-10-22 17:09 | P.CONS ---
History of Present Illness - Reason for Consult Consult date: 10/22/18 Abdominal pain Requesting physician: Anurag E Sheet - Chief Complaint Abdominal pain - History of Present Illness 52-year-old female with a medical history significant for adenocarcinoma of the lung status post lobectomy, laryngeal cancer status post radiation therapy as w ell as recent radiation therapy findings of metastatic cancer completed 2 days ago who presented to the hospital with complaints of abdominal pain. The patient reports epigastric abdominal pain described as occurring diffusely across her abdomen and into her chest. The patient reports decreased oral intake secondary to the pain. She reports nausea well controlled with Zofran at home. The patient denies any constipation on a regimen of Dulcolax twice daily at home. She denies any dysphagia or odynophagia. She reports uncontrolled pain at home despite being on home regimen for pain control. She also reported generalized weakness on presentation. Chest x-ray on presentation was signific ant for a tiny right pleural effusion. Laboratory evaluation was significant for WBC 1.5, hemoglobin 8.1, platelet count 104,000, INR 2.4, total bilirubin 0.3, alkaline phosphatase 80, AST 31 and ALT 38. Review of Systems REVIEW OF SYSTEMS: CONSTITUTIONAL: Denies any fevers, chills, but does report fatigue. CARDIOVASCULAR: Denies any chest pain, palpitations high or low blood pressures RESPIRATORY: Denies any shortness of breath, hemoptysis or cough. GENITOURINARY: No dysuria or hematuria, but does report frequency of urine. MUSCULOSKELETAL: No weakness reported. SKIN: Denies any new rashes or lesions, jaundice or pallor. PSYCHIATRIC: Denies any depression or anxiety. NEUROLOGY: Denies headache, denies any new focal deficits. EARS/NOSE/THROAT: No recent hearing change, congestion, nasal discharge or sore throat. EYES: No pain in eyes, discharge or change in vision. GASTROINTESTINAL: As per HPI. Past Medical History Past Medical History: Cancer, GERD/Reflux, Hyperlipidemia, Hypertension, Myocardial Infarction ([place]) Additional Past Medical History / Comment(s): BRAIN ANEURSYM, [place] 2012, LUNG CA diagnosed 2014, CARPAL TUNNEL RIGHT WRIST, throat CA dx apr 2018 Last Myocardial Infarction Date:: 04/30/2013 History of Any Multi-Drug Resistant Organisms: None Reported Past Surgical History: Heart Catheterization, Orthopedic Surgery, Tubal Ligation, Uterine Ablation Additional Past Surgical History / Comment(s): ANGIOPLASTY FOR BRAIN ANEURSYM, CARPEL TUNNEL RIGHT WRIST , and laparoscopy, PARTIAL RIGHT LUNG REMOVAL ,PTCA, Past Anesthesia/Blood Transfusion Reactions: No Reported Reaction Past Psychological History: Anxiety, Panic Disorder Smoking Status: Never smoker Past Alcohol Use History: None Reported Additional Past Alcohol Use History / Comment(s): Patient was a smoker and quit in April 2018. She denies any marijuana, illicit drug use or alcohol use. Her daughter is living with her. She is on disability. Past Drug Use History: None Reported - Past Family History Mother Family Medical History: Cancer Father Family Medical History: Cancer Medications and Allergies Home Medications Medication Instructions Recorded Confirmed Type Folic Acid 1 mg PO DAILY #30 tab 08/24/18 10/20/18 Rx Pantoprazole Sodium [Protonix] 40 mg PO DAILY #30 tablet.dr 08/24/18 10/20/18 Rx Ondansetron [Zofran ODT] 4 mg PO Q8HR 08/30/18 10/20/18 History Acetaminophen Tab [Tylenol] 650 mg PO Q6HR PRN tab 09/01/18 10/20/18 Rx Atorvastatin [Lipitor] 80 mg PO HS tab 09/01/18 10/20/18 Rx Megestrol [Megace] 400 mg PO DAILY #30 cup 09/01/18 10/20/18 Rx Docusate [Colace] 100 mg PO BID PRN #60 capsule 09/09/18 10/20/18 Rx Magnesium Oxide [Mag-Ox] 400 mg PO DAILY #3 tab 09/09/18 10/20/18 Rx Sennosides [Senna] 8.6 mg PO HS PRN #60 tablet 09/09/18 10/20/18 Rx Lidocaine Viscous [Xylocaine 30 ml PO TID #300 ml 09/25/18 10/20/18 Rx Viscous 2%] Nystatin 100,000 Unit/ml Susp 3,000,000 unit PO TID #30 cup 09/25/18 10/20/18 Rx [Mycostatin Oral Susp] Apixaban [Eliquis] 5 mg PO BID 09/29/18 10/20/18 History oxyCODONE-APAP 10-325MG [Percocet 1 tab PO QID PRN 10/11/18 10/20/18 History 10-325 mg] Metoclopramide [Reglan] 5 mg PO ACHS PRN #20 tab 10/17/18 10/20/18 Rx Allergies Allergy/AdvReac Type Severity Reaction Status Date / Time Penicillins Allergy Unknown Verified 10/20/18 21:42 Childhood Physical Exam Vitals: Vital Signs Temp Pulse Resp BP Pulse Ox 10/22/18 05:00 98.6 F 107 H 18 106/71 100 10/22/18 00:00 101 H 18 10/21/18 21:00 98.5 F 101 H 18 109/67 99 10/21/18 15:58 89 18 Intake and Output 10/21/18 10/22/18 10/22/18 22:59 06:59 14:59 Intake Total 820 590 Balance 820 590 Intake: Intake, IV Titration 400 Amount Sodium Chloride 0.9% 1, 400 000 ml @ 100 mls/hr IV . Q10H [facility] Rx#:[id number] Oral 420 590 Other: # Voids 2 2 Results CBC & Chem 7: 10/22/18 06:33 10/22/18 06:33 Labs: Abnormal Lab Results - Last 24 Hours (Table) 10/22/18 10/22/18 Range/Units 06:33 06:33 WBC 1.5 L (3.8-10.6) k/uL RBC 2.86 L (3.80-5.40) m/uL Hgb 8.1 L (11.4-16.0) gm/dL Hct 25.0 L (34.0-46.0) % RDW 19.4 H (11.5-15.5) % Plt Count 104 L (150-450) k/uL Neutrophils # (Manual) 0.75 L (1.3-7.7) k/uL Lymphocytes # (Manual) 0.38 L (1.0-4.8) k/uL Chloride 117 H (98-107) mmol/L Carbon Dioxide 18 L (22-30) mmol/L BUN 6 L (7-17) mg/dL Chest x-ray: report reviewed (Chest x-ray with findings of a tiny right pleural effusion.) Assessment and Plan (1) Abdominal pain Narrative/Plan: 52-year-old female with multiple medical comorbidities including metastatic cancer who presented with complaints of epigastric abdominal pain and decreased oral intake. She denied any dysphagia or odynophagia or reports of esophageal obstruction. The patient was on Protonix 40 mg at home, differential includes symptoms secondary to uncontrolled reflux, underlying metastatic cancer or other etiology. Current Visit: Yes Status: Acute Code(s): R10.9 - UNSPECIFIED ABDOMINAL PAIN SNOMED Code(s): 26257916 (2) Anemia Narrative/Plan: Pancytopenia in the setting of metastatic cancer as well as previous radiation and chemotherapy. No signs or symptoms of GI bleeding reported. Current Visit: Yes Status: Acute Priority: Medium Code(s): D64.9 - ANEMIA, UNSPECIFIED SNOMED Code(s): 619276389 (3) Nausea Current Visit: Yes Status: Acute Priority: High Code(s): R11.0 - NAUSEA SNOMED Code(s): 406336827 Plan: Supportive care Okay for diet Dietary supplements added Continue increased dose of PPI, with Protonix 40 mg twice a day Continue antiemetics as needed Continue bowel regimen Continue to monitor CBC, CMP Guarded prognosis given multiple medical comorbidities and metastatic cancer Thank you for allowing us to participate in the care of the patient we will continue to follow
[2018-10-22] MEDS: oxyCODONE-APAP 5-325MG 1 EACH TAB PO PRN (17:51)
[2018-10-22 18:40] LABS: Appearance,Urine Clear (Clear); Bilirubin,Urine Negative (Negative); Blood,Urine Negative (Negative); Color,Urine Light Yellow; Glucose,Urine (UA) Negative (Negative); Ketones,Urine Negative (Negative); Leukocyte Esterase,Urine Negative (Negative); Nitrite,Urine Negative (Negative); PH, Urine 7.5 (5.0-8.0); Protein,Urine Negative (Negative); Urobilinogen,Urine <2.0 mg/dL (<2.0)
--- NOTE | 2018-10-22 19:09 | ECHOF ---
Referral Reason:assess LV and pericardial effusion MEASUREMENTS -------- HEIGHT: 160.0 cm WEIGHT: 65.3 kg BP: IVSd: 1.1 cm (0.6 - 1.1) LVIDd: 3.4 cm (3.9 - 5.3) LVPWd: 0.7 cm (0.6 - 1.1) IVSs: 1.2 cm LVIDs: 2.7 cm LVPWs: 1.6 cm %FS: 30.97 % EDV(Teich): 57.26 ml EF(Teich): 59.53 % ESV(Teich): 23.17 ml IVSd: 1.11 cm (0.6 - 1.1) IVSs: 1.46 cm LVIDd: 3.68 cm (3.9 - 5.3) LVIDs: 2.54 cm LVPWd: 1.69 cm (0.6 - 1.1) LVPWs: 1.53 cm SV(Teich): 34.08 ml FINDINGS -------- Sinus rhythm. This was a technically adequate study. LIMTED STUDY Overall left ventricular systolic function is normal with, an EF between 55 - 60 %. There is no pericardial effusion. CONCLUSIONS -------- 1. Sinus rhythm. 2. This was a technically adequate study. 3. Overall left ventricular systolic function is normal with, an EF between 55 - 60 %. 4. There is no pericardial effusion. 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
[2018-10-22] MEDS: ATORVASTATIN 80 MG TAB PO SCH (20:50)
[2018-10-23] MEDS: HYDROmorphone 1 MG/ML 1 ML SYRINGE IVP PRN ×3 (04:04→13:00)
[2018-10-23] MEDS: SODIUM CHLORIDE 0.9% 1,000 ML IV SCH (04:06)
[2018-10-23 07:35] LABS: Anisocytosis Slight; HCT 25.9 % (34.0-46.0); HGB 8.1 gm/dL (11.4-16.0); Hypochromasia Slight; MCH 27.1 pg (25.0-35.0); MCHC 31.2 g/dL (31.0-37.0); MCV 86.8 fL (80.0-100.0); Mean Platelet Volume 7.4; RBC 2.98 m/uL (3.80-5.40); WBC 1.7 k/uL (3.8-10.6)
[2018-10-23 07:59] LABS: African American GFR (CKD) >90 (>60 ml/min/1.73 sqM); Anion Gap 5 mmol/L; Blood Urea Nitrogen 6 mg/dL (7-17); Carbon Dioxide 19 mmol/L (22-30); Chloride 115 mmol/L (98-107); Glucose 88 mg/dL (74-99); Potassium 4.2 mmol/L (3.5-5.1); Sodium 139 mmol/L (137-145)
[2018-10-23] MEDS ORDERED: BISACODYL 5 MG TABLET.DR PO SCH (09:00)
[2018-10-23] MEDS ORDERED: BISACODYL 10 MG SUPP RECTAL STA (09:14)
[2018-10-23] MEDS: PANTOPRAZOLE 40 MG/10 ML VIAL IVP SCH (09:17)
[2018-10-23] MEDS: NYSTATIN 100,000 UNIT/ML SUSP 500,000 UNIT/5 ML CUP PO SCH ×2 (09:17→15:19)
[2018-10-23] MEDS: MAGNESIUM OXIDE 400 MG TAB PO SCH (09:18)
[2018-10-23] MEDS: ONDANSETRON ODT 4 MG TAB PO SCH ×2 (09:18→15:19)
[2018-10-23] MEDS: APIXABAN 5 MG TAB PO SCH (09:18)
[2018-10-23] MEDS: FOLIC ACID 1 MG TAB PO SCH (09:18)
[2018-10-23] MEDS: LIDOCAINE VISCOUS 300 MG/15 ML CUP MUCOUS MEM SCH ×2 (09:19→15:19)
[2018-10-23] MEDS: MEGESTROL 400 MG/10 ML CUP PO SCH (09:19)
[2018-10-23 11:00] LABS: Eosinophils # (M) 0.15 k/uL (0-0.7); Lymphocytes # (M) 0.29 k/uL (1.0-4.8); Monocytes # (M) 0.44 k/uL (0-1.0); Neutrophils # (M) 0.82 k/uL (1.3-7.7); Neutrophils % (M) 48 %; Nucleated Red Blood Cells 0 /100 WBC (0-0); Poikilocytosis (M) Present; Total Cells Counted 100
[2018-10-23 11:01] LABS: Platelet Count 79 k/uL (150-450)
[2018-10-23 11:34] VITALS: BP 110/76; PULSE 104; TEMP 98.3
[2018-10-23 13:50] VITALS: BMI 25.4
[2018-10-23] MEDS: oxyCODONE-APAP 5-325MG 1 EACH TAB PO PRN (15:25)
--- NOTE | 2018-10-31 21:20 | P.DS ---
Providers Date of admission: 10/21/18 01:41 Attending physician: Tamanna Denise Consults: 10/21/18 11:47 Consult Physician Routine Consulting Provider: Tre Lackey Consult Reason/Comments: cardiac hx Do you want consulting provider notified?: Yes Primary care physician: Latisha Ziegler [facility] Course: Diagnoses: Gastroenteritis, dehydration. Present on admission. Improveed Recent history of recurrent pulmonary adenocarcinoma, status post lobectomy. She follows up with Dr. garza as an outpatient setting Recent history of early stage laryngeal cancer. Follow-up as an outpatient History of pulmonary embolism on anticoagulation Metastatic disease to the pelvis, liver and omentum, status post radiotherapy vaginal bleeding, controlled and stopped Urinary irritation. urinary tract infection is ruled out. improved. Generalized weakness. Improved Right pleural effusion/thickening, mostly related to her cancer Hospital course: This is a pleasant 52 years old -[place] female with past medical history of adenocarcinoma of the lung, status post lobectomy, on 04/2018 patient was diagnosed with stage laryngeal cancer, treated with radiation therapy. On 07/2018, patient was found to have liver lesions and omental masses and pelvic masses and found to have recurrent adenocarcinoma of her lung. On that time patient was found to have pulmonary embolism and she was placed on anti coagulation with some evidence of bleeding per vagina going on. She has tenderness in the lower abdomen for which she got radiotherapy for her metastasis in the pelvis and omentum, her vaginal bleeding has stopped recently since then with no more vaginal bleeding. She has epigastric pain and chest pain on admission which is resolved upon discharge. Patient has been evaluated by child day care center worker recommended echocardiogram: Showing sinus rhythm with ejection fraction 55-60% and no pericardial effusion. Patient showed interval improvement in her symptoms. Her chest pain abdominal pain is significantly improved. Patient is able to tolerate diet. No more nausea vomiting. No more diarrhea and actually patient has been constipated for the last 2 days and asking for laxative. Her vaginal bleeding has stopped as per patient. Patient denies any other symptoms. Patient is able to walk at baseline using her walker for short distance. Patient was eager to go home today and she is feels back to her baseline. Patient wanted Percocet 10-325 milligrams for pain, also she wants Reglan as Zofran was not helping her nausea with eating. Patient states she has all other scopes at home including Eliquis. Patient was cleared for discharge by child day care center worker Problems and management plan were discussed with the patient and he verbalized understanding and acceptance Patient was found stable and can be discharged home however he needs follow-up as an outpatient. Patient agrees with the appointments made with her PCP and oncology with Dr. Fatima (on the same day but different timing). Pain clinic offices will need referral, pt instructed to f/u with her pcp regarding this and she agrees. scripts reviewed with pt , she has rest of home medication Gen: patient is a AAOx3, no distress CVS: S1-S2, RRR, no murmur Lungs: B/L CTA, no wheezing Abdomen: soft, no distention, no tenderness, positive bowel sounds Extremity: no leg edema or induration Time spent more than 35 minutes Patient Condition at Discharge: Stable Plan - Discharge Summary New Discharge Prescriptions: New Bisacodyl [Dulcolax] 10 mg PO DAILY PRN #7 tablet. PRN Reason: Constipation Metoclopramide [Reglan] 5 mg PO ACHS #15 tab Continue Pantoprazole Sodium [Protonix] 40 mg PO DAILY #30 tablet. Folic Acid 1 mg PO DAILY #30 tab Ondansetron [Zofran ODT] 4 mg PO Q8HR PRN PRN Reason: Nausea Atorvastatin [Lipitor] 80 mg PO HS tab Megestrol [Megace] 400 mg PO DAILY #30 cup Acetaminophen Tab [Tylenol] 650 mg PO Q6HR PRN tab PRN Reason: Mild Pain Or Fever > 100.5 Docusate [Colace] 100 mg PO BID PRN #60 capsule PRN Reason: Constipation Sennosides [Senna] 8.6 mg PO HS PRN #60 tablet PRN Reason: Constipation Nystatin 100,000 Unit/ml Susp [Mycostatin Oral Susp] 3,000,000 unit PO TID #30 cup Lidocaine Viscous [Xylocaine Viscous 2%] 30 ml PO TID #300 ml Discontinued oxyCODONE-APAP 10-325MG [Percocet 10-325 mg] 1 tab PO QID PRN PRN Reason: Pain No Action Loratadine [Claritin] 10 mg PO DAILY #30 tab fentaNYL 12MCG/HR PATCH [Duragesic 12MCG/HR] 1 patch TRANSDERM Q72H #10 patch Fluticasone Nasal [place] [Flonase Nasal [place]] 2 spray EA NOSTRIL DAILY #1 bottle Magnesium Oxide [Mag-Ox] 400 mg PO TID #90 tab Montelukast [Singulair] 10 mg PO HS #30 tab Sennosides-Docusate Sodium [Senokot-S] 2 each PO BID 30 Days #160 tab Polyethylene Glycol 3350 [Miralax] 17 gm PO DAILY 30 Days #30 packet oxyCODONE-APAP 10-325MG [Percocet 10-325 mg] 1 tab PO QID PRN 3 Days #12 tab PRN Reason: Pain Discharge Medication List Folic Acid 1 mg PO DAILY #30 tab 08/24/18 [Rx] Pantoprazole Sodium [Protonix] 40 mg PO DAILY #30 tablet. 08/24/18 [Rx] Ondansetron [Zofran ODT] 4 mg PO Q8HR PRN 08/30/18 [History] Acetaminophen Tab [Tylenol] 650 mg PO Q6HR PRN tab 09/01/18 [Rx] Atorvastatin [Lipitor] 80 mg PO HS tab 09/01/18 [Rx] Megestrol [Megace] 400 mg PO DAILY #30 cup 09/01/18 [Rx] Docusate [Colace] 100 mg PO BID PRN #60 capsule 09/09/18 [Rx] Sennosides [Senna] 8.6 mg PO HS PRN #60 tablet 09/09/18 [Rx] Lidocaine Viscous [Xylocaine Viscous 2%] 30 ml PO TID #300 ml 09/25/18 [Rx] Nystatin 100,000 Unit/ml Susp [Mycostatin Oral Susp] 3,000,000 unit PO TID #30 cup 09/25/18 [Rx] Bisacodyl [Dulcolax] 10 mg PO DAILY PRN #7 tablet. 10/23/18 [Rx] Metoclopramide [Reglan] 5 mg PO ACHS #15 tab 10/23/18 [Rx] Fluticasone Nasal [place] [Flonase Nasal [place]] 2 spray EA NOSTRIL DAILY #1 bottle 10/26/18 [Rx] Loratadine [Claritin] 10 mg PO DAILY #30 tab 10/26/18 [Rx] Magnesium Oxide [Mag-Ox] 400 mg PO TID #90 tab 10/26/18 [Rx] Montelukast [Singulair] 10 mg PO HS #30 tab 10/26/18 [Rx] Polyethylene Glycol 3350 [Miralax] 17 gm PO DAILY 30 Days #30 packet 10/26/18 [Rx] Sennosides-Docusate Sodium [Senokot-S] 2 each PO BID 30 Days #160 tab 10/26/18 [Rx] fentaNYL 12MCG/HR PATCH [Duragesic 12MCG/HR] 1 patch TRANSDERM Q72H #10 patch 10/26/18 [Rx] oxyCODONE-APAP 10-325MG [Percocet 10-325 mg] 1 tab PO QID PRN 3 Days #12 tab 10/26/18 [Rx] Follow up Appointment(s)/Referral(s): Miguel Fatima MD [STAFF PHYSICIAN] - 10/25/18 10:45 am Annabella Tyson PAC [REFERRING] - 1 Week Yennifer Baires MD [STAFF PHYSICIAN] - 11/01/18 4:30 pm (patient needs to arrive for appt.15 min early,please bring drivers license and insurance card) Latisha Ziegler MD [Primary Care Provider] - 10/25/18 2:15 pm Discharge Disposition: HOME SELF-CARE
== END 2018-10-23 16:15 | disposition home or self-care (01) ==
LOC: EC 21:27 → INTOOBSV 10-21 01:41 → 3NMEDONC 10-21 01:41 → UNDODISIN 10-23 16:15
PROVIDERS: ADMIT Hospitalist; ATTEND Hospitalist
DX: K52.9 Noninfective gastroenteritis and colitis, unspecified (principal); E86.0 Dehydration; D61.810 Antineoplastic chemotherapy induced pancytopenia; R18.0 Malignant ascites; C34.90 Malignant neoplasm of unspecified part of unspecified bronchus or lung; C78.6 Secondary malignant neoplasm of retroperitoneum and peritoneum; C78.7 Secondary malignant neoplasm of liver and intrahepatic bile duct; C79.89 Secondary malignant neoplasm of other specified sites; E78.5 Hyperlipidemia, unspecified; E83.42 Hypomagnesemia; E87.6 Hypokalemia; F41.0 Panic disorder [episodic paroxysmal anxiety]; I10 Essential (primary) hypertension; F41.9 Anxiety disorder, unspecified; G89.3 Neoplasm related pain (acute) (chronic); C32.9 Malignant neoplasm of larynx, unspecified; I27.20 Pulmonary hypertension, unspecified; K21.9 Gastro-esophageal reflux disease without esophagitis; Z79.01 Long term (current) use of anticoagulants; Z79.899 Other long term (current) drug therapy; Z88.0 Allergy status to penicillin; Z87.440 Personal history of urinary (tract) infections; Z87.891 Personal history of nicotine dependence; I25.2 Old myocardial infarction; Z86.711 Personal history of pulmonary embolism; Z90.2 Acquired absence of lung [part of]; Z92.3 Personal history of irradiation; Z92.21 Personal history of antineoplastic chemotherapy; Z87.2 Personal history of diseases of the skin and subcutaneous tissue; Z86.79 Personal history of other diseases of the circulatory system; Z98.61 Coronary angioplasty status; Z98.51 Tubal ligation status; Z80.9 Family history of malignant neoplasm, unspecified
CPT/HCPCS: 96376 ×4; 96361 ×3; 96375 ×3; 96374; 99285; 36415; 93005; 93308; 85379; 80053 ×2; 80048 ×2; 83735 ×2; 84484 ×2; 85025 ×4; 85610; 85730; 81003; 71046; G0378 ×3; J1200; J1170 ×4; J3475; J3480; J1642; S0179 ×2; C9113 ×3

== ENCOUNTER 2018-10-24 11:50 | Observation (INO) | payer OTHER ==
[2018-10-24] MEDS ORDERED: HYDROmorphone 1 MG/ML 1 ML SYRINGE IVP STA (13:26)
--- NOTE | 2018-10-24 13:31 | ED ---
Abdominal Pain HPI <Jeff Andrews - Last Filed: 10/24/18 16:28> - General Source: patient Mode of arrival: wheelchair Limitations: no limitations <Capo Mcnally - Last Filed: 10/24/18 16:57> - General Chief Complaint: Abdominal Pain Stated Complaint: Vomiting, Abd pain Time Seen by Provider: 10/24/18 12:31 - History of Present Illness Initial Comments: Patient is a 52-year-old female with metastatic small cell carcinoma presenting to emergency department with abdominal pain. Patient reports she left the hospital yesterday after she felt better but started developing abdominal pain after she got home. Patient reports several episodes of vomiting but no hematemesis. Patient also reports epigastric pain that is colicky in nature and is rating it an 8. Patient denies headaches, chest pain, chest palpitations or shortness of breath. Patient was in contact this morning with the oncology nu rse practitioner who suggested they go to emergency department and be admitted for inpatient care. (Capo Mcnally) - Related Data Home Medications Medication Instructions Recorded Confirmed Ondansetron [Zofran ODT] 4 mg PO Q8HR PRN 08/30/18 10/24/18 Apixaban [Eliquis] 5 mg PO BID 09/29/18 10/24/18 Previous Rx's Medication Instructions Recorded Folic Acid 1 mg PO DAILY #30 tab 08/24/18 Pantoprazole Sodium [Protonix] 40 mg PO DAILY #30 tablet. 08/24/18 Acetaminophen Tab [Tylenol] 650 mg PO Q6HR PRN tab 09/01/18 Atorvastatin [Lipitor] 80 mg PO HS tab 09/01/18 Megestrol [Megace] 400 mg PO DAILY #30 cup 09/01/18 Docusate [Colace] 100 mg PO BID PRN #60 capsule 09/09/18 Magnesium Oxide [Mag-Ox] 400 mg PO DAILY #3 tab 09/09/18 Sennosides [Senna] 8.6 mg PO HS PRN #60 tablet 09/09/18 Lidocaine Viscous [Xylocaine 30 ml PO TID #300 ml 09/25/18 Viscous 2%] Nystatin 100,000 Unit/ml Susp 3,000,000 unit PO TID #30 cup 09/25/18 [Mycostatin Oral Susp] Bisacodyl [Dulcolax] 10 mg PO DAILY PRN #7 tablet. 10/23/18 Metoclopramide [Reglan] 5 mg PO ACHS #15 tab 10/23/18 oxyCODONE-APAP 10-325MG [Percocet 1 tab PO QID PRN 2 Days #8 tab 10/23/18 10-325 mg] Allergies Allergy/AdvReac Type Severity Reaction Status Date / Time Penicillins Allergy Unknown Verified 10/24/18 12:54 Childhood Review of Systems ROS Other: All systems not noted in ROS Statement are negative. <Jeff Andrews - Last Filed: 10/24/18 16:28> ROS Other: All systems not noted in ROS Statement are negative. <Capo Mcnally - Last Filed: 10/24/18 16:57> ROS Statement: Those systems with pertinent positive or pertinent negative responses have been documented in the HPI. Past Medical History Past Medical History: Cancer, GERD/Reflux, Hyperlipidemia, Hypertension, Myocardial Infarction ([place]) Additional Past Medical History / Comment(s): BRAIN ANEURSYM, [place] 2012, LUNG CA diagnosed 2014, CARPAL TUNNEL RIGHT WRIST, throat CA dx apr 2018 Last Myocardial Infarction Date:: 04/30/2013 History of Any Multi-Drug Resistant Organisms: None Reported Past Surgical History: Heart Catheterization, Orthopedic Surgery, Tubal Ligation, Uterine Ablation Additional Past Surgical History / Comment(s): ANGIOPLASTY FOR BRAIN ANEURSYM, CARPEL TUNNEL RIGHT WRIST , and laparoscopy, PARTIAL RIGHT LUNG REMOVAL ,PTCA, Past Anesthesia/Blood Transfusion Reactions: No Reported Reaction Past Psychological History: Anxiety, Panic Disorder Smoking Status: Never smoker Past Alcohol Use History: None Reported Past Drug Use History: None Reported - Past Family History Mother Family Medical History: Cancer Father Family Medical History: Cancer <Capo Mcnally - Last Filed: 10/24/18 16:57> General Exam Limitations: no limitations General appearance: alert, in no apparent distress Head exam: Present: atraumatic, normocephalic, normal inspection Eye exam: Present: normal appearance, PERRL, EOMI Pupils: Present: normal accommodation ENT exam: Present: normal exam Neck exam: Present: normal inspection Cardiovascular Exam: Present: normal rhythm, tachycardia, normal heart sounds GI/Abdominal exam: Present: soft, tenderness (Epigastric), hyperactive bowel sounds. Absent: guarding, rebound, rigid Extremities exam: Present: normal inspection, full ROM Back exam: Present: normal inspection, full ROM. Absent: CVA tenderness (R), CVA tenderness (L) Neurological exam: Present: alert, oriented X3 Psychiatric exam: Present: normal affect, normal mood Skin exam: Present: warm, intact, normal color <Capo Mcnally - Last Filed: 10/24/18 16:57> Course Vital Signs 10/24/18 10/24/18 10/24/18 12:17 14:14 15:30 Temperature 99.4 F 99.4 F Pulse Rate 135 H 107 H 94 Respiratory 18 18 18 Rate Blood Pressure 122/80 111/83 121/71 O2 Sat by Pulse 100 100 100 Oximetry Medical Decision Making - Lab Data Result diagrams: 10/24/18 13:30 10/24/18 13:30 <Jeff Andrews - Last Filed: 10/24/18 16:28> - Lab Data Result diagrams: 10/24/18 13:30 10/24/18 13:30 <Capo Mcnally - Last Filed: 10/24/18 16:57> - Medical Decision Making Case was also discussed with Dr. Zuleta, who will admit covering for Dr. Shabnam Denise. (Jeff Andrews) Patient is a 52-year-old female with metastatic small cell carcinoma presenting to emergency department for abdominal pain. UA, CBC, CMP were obtained. KUB is unremarkable. After discussion with the patient I contacted Tri Walker who is the physician rehab care assistant for the oncologist, Dr. Fatima. She suggested that we order a cortisol levels, liver enzymes, amylase and lipase to monitor for side effects of the chemotherapy that she is undergoing. She also suggested that we consult Dr. Fatima. She also suggested that we speak with the attending who was measured in managing her that her and patient is a for last 3 days before discharge yesterday. At this time patient will be admitted for inpatient care. (Capo Mcnally) - Lab Data Lab Results 10/24/18 10/24/18 Range/Units 13:30 13:30 WBC 2.0 L (3.8-10.6) k/uL RBC 3.15 L (3.80-5.40) m/uL Hgb 8.7 L (11.4-16.0) gm/dL Hct 26.3 L (34.0-46.0) % MCV 83.5 (80.0-100.0) fL MCH 27.5 (25.0-35.0) pg MCHC 32.9 (31.0-37.0) g/dL RDW 19.6 H (11.5-15.5) % Plt Count 50 L (150-450) k/uL Neutrophils % (Manual) 63 % Lymphocytes % (Manual) 18 % Monocytes % (Manual) 11 % Eosinophils % (Manual) 8 % Neutrophils # (Manual) 1.26 L (1.3-7.7) k/uL Lymphocytes # (Manual) 0.36 L (1.0-4.8) k/uL Monocytes # (Manual) 0.22 (0-1.0) k/uL Eosinophils # (Manual) 0.16 (0-0.7) k/uL Nucleated RBCs 0 (0-0) /100 WBC Manual Slide Review Performed Poikilocytosis (manual Present Anisocytosis Slight Microcytosis Slight Sodium 138 (137-145) mmol/L Potassium 3.8 (3.5-5.1) mmol/L Chloride 110 H (98-107) mmol/L Carbon Dioxide 19 L (22-30) mmol/L Anion Gap 9 mmol/L BUN 6 L (7-17) mg/dL Creatinine 0.54 (0.52-1.04) mg/dL Est GFR (CKD-EPI)AfAm >90 (>60 ml/min/1.73 sqM) Est GFR (CKD-EPI)NonAf >90 (>60 ml/min/1.73 sqM) Glucose 80 (74-99) mg/dL Calcium 9.1 (8.4-10.2) mg/dL Total Bilirubin 0.3 (0.2-1.3) mg/dL AST 27 (14-36) U/L ALT 40 (9-52) U/L Alkaline Phosphatase 86 (38-126) U/L Total Protein 6.1 L (6.3-8.2) g/dL Albumin 3.1 L (3.5-5.0) g/dL Amylase 49 (30-110) U/L Lipase 54 (23-300) U/L Cortisol 7 ug/dL Disposition <Jeff Andrews - Last Filed: 10/24/18 16:28> Is patient prescribed a controlled substance at d/c from ED?: No Time of Disposition: 16:57 <Capo Mcnally - Last Filed: 10/24/18 16:57> Clinical Impression: Abdominal pain Disposition: ADMITTED IP TO THIS HOSP Condition: Stable Instructions (If sedation given, give patient instructions): Abdominal Pain (ED) Additional Instructions: Please follow proper instructions on inpatient floor. Referrals: Latisha Ziegler MD [Primary Care Provider] - 1-2 days
[2018-10-24] MEDS ORDERED: ONDANSETRON 4 MG/2 ML VIAL IVP STA (13:49)
--- NOTE | 2018-10-24 14:02 | XR ---
EXAMINATION TYPE: XR KUB DATE OF EXAM: 10/24/2018 1:53 PM CLINICAL HISTORY: Abdominal pain, nausea, and vomiting for one day TECHNIQUE: Upright and supine images of the abdomen were obtained. COMPARISON: 08/14/2014 FINDINGS: There is no dilated large or small bowel seen. Numerous phleboliths are noted within the pe lvis. No pneumoperitoneum is appreciated. The visualized portion of the cardiac silhouette is enlarge d. There is a very minimal dextroscoliosis of the lumbar spine. IMPRESSION: Nonobstructive bowel gas pattern.
[2018-10-24 14:58] LABS: Anisocytosis Slight; HCT 26.3 % (34.0-46.0); HGB 8.7 gm/dL (11.4-16.0); MCH 27.5 pg (25.0-35.0); MCHC 32.9 g/dL (31.0-37.0); MCV 83.5 fL (80.0-100.0); Mean Platelet Volume 8.7; Microcytosis Slight; RBC 3.15 m/uL (3.80-5.40); RDW 19.6 % (11.5-15.5)
[2018-10-24 15:00] LABS: ALT 40 U/L (9-52); AST 27 U/L (14-36); African American GFR (CKD) >90 (>60 ml/min/1.73 sqM); Albumin 3.1 g/dL (3.5-5.0); Alkaline Phosphatase 86 U/L (38-126); Amylase 49 U/L (30-110); Anion Gap 9 mmol/L; Blood Urea Nitrogen 6 mg/dL (7-17); Calcium 9.1 mg/dL (8.4-10.2); Carbon Dioxide 19 mmol/L (22-30); Chloride 110 mmol/L (98-107); Glucose 80 mg/dL (74-99); Lipase 54 U/L (23-300); Potassium 3.8 mmol/L (3.5-5.1); Sodium 138 mmol/L (137-145); Total Bilirubin 0.3 mg/dL (0.2-1.3); Total Protein 6.1 g/dL (6.3-8.2)
[2018-10-24 15:05] LABS: Platelet Count 50 k/uL (150-450)
[2018-10-24 15:12] LABS: Eosinophils # (M) 0.16 k/uL (0-0.7); Lymphocytes # (M) 0.36 k/uL (1.0-4.8); Monocytes # (M) 0.22 k/uL (0-1.0); Neutrophils # (M) 1.26 k/uL (1.3-7.7); Neutrophils % (M) 63 %; Nucleated Red Blood Cells 0 /100 WBC (0-0); Total Cells Counted 100
[2018-10-24 15:13] LABS: Poikilocytosis (M) Present
[2018-10-24] MEDS ORDERED: ONDANSETRON 4 MG/2 ML VIAL IVP PRN (16:43)
[2018-10-24] MEDS ORDERED: NALOXONE 0.4 MG/ML 1 ML VIAL IV PRN (16:43)
[2018-10-24] MEDS ORDERED: HYDROmorphone 1 MG/ML 1 ML SYRINGE IVP PRN (16:43)
[2018-10-24] MEDS: HYDROmorphone 0.5 MG/0.5 ML SYRINGE IVP PRN ×3 (16:56→23:15)
[2018-10-24 19:54] VITALS: BMI 25.2
[2018-10-24] MEDS ORDERED: ALPRAZolam 0.25 MG TAB PO PRN (22:09)
--- NOTE | 2018-10-24 22:23 | P.PN ---
Progress Note - Text Progress Note Date: 10/24/18 Spoke to patient earlier in day and advised to return to Emergency for severe abdominal pain and persistent nausea and vomiting. Spoke to emergency PA who stated he was placing order for consultation in chart and we reviewed case, awaiting formal consult although labs for am ordered and home meds. Hold AC therapy until tomorrow when repeat Platelet count returns and abdominal imaging, GI evaluation to confirm no obstructive cause to her persistent symptoms.
[2018-10-24] MEDS ORDERED: ACETAMINOPHEN TAB 325 MG TAB PO PRN (22:24)
[2018-10-24] MEDS ORDERED: oxyCODONE-APAP 10-325MG 1 EACH TAB PO PRN (22:24)
[2018-10-24] MEDS: SODIUM CHLORIDE 0.9% 1,000 ML IV SCH (23:16)
[2018-10-24] MEDS: FOLIC ACID 1 MG TAB PO SCH (23:45)
[2018-10-25] MEDS: HYDROmorphone 0.5 MG/0.5 ML SYRINGE IVP PRN ×4 (03:16→17:18)
[2018-10-25 03:39] LABS: Appearance,Urine Clear (Clear); Bacteria,Urine Rare /hpf; Bilirubin,Urine Negative (Negative); Blood,Urine Negative (Negative); Color,Urine Light Yellow; Glucose,Urine (UA) Negative (Negative); Ketones,Urine Negative (Negative); Leukocyte Esterase,Urine Trace (Negative); Nitrite,Urine Negative (Negative); Protein,Urine Negative (Negative); RBC,Urine <1 /hpf (0-5); Specific Gravity,Urine 1.008 (1.001-1.035); Squamous Epithelial Cell,Urine 4 /hpf (0-4); Urobilinogen,Urine <2.0 mg/dL (<2.0)
[2018-10-25 05:56] VITALS: RESP 18
[2018-10-25] MEDS: METOCLOPRAMIDE 5 MG TAB PO SCH ×4 (07:56→21:13)
[2018-10-25] MEDS: FOLIC ACID 1 MG TAB PO SCH (07:56)
[2018-10-25] MEDS: LIDOCAINE VISCOUS 2% 15 ML CUP MUCOUS MEM SCH ×3 (07:57→22:19)
[2018-10-25] MEDS: SODIUM CHLORIDE 0.9% 1,000 ML IV SCH (07:58)
[2018-10-25] MEDS ORDERED: BISACODYL 5 MG TABLET.DR PO PRN (09:00)
[2018-10-25] MEDS ORDERED: MAGNESIUM OXIDE 400 MG TAB PO SCH (09:00)
[2018-10-25 09:37] LABS: Anisocytosis Slight; HCT 24.5 % (34.0-46.0); HGB 8.1 gm/dL (11.4-16.0); Hypochromasia Slight; MCH 28.2 pg (25.0-35.0); MCHC 32.9 g/dL (31.0-37.0); MCV 85.6 fL (80.0-100.0); Mean Platelet Volume 8.5; Platelet Count 40 k/uL (150-450); RBC 2.86 m/uL (3.80-5.40); RDW 19.4 % (11.5-15.5); WBC 1.9 k/uL (3.8-10.6)
[2018-10-25 09:52] LABS: ALT 28 U/L (9-52); AST 24 U/L (14-36); African American GFR (CKD) >90 (>60 ml/min/1.73 sqM); Alkaline Phosphatase 79 U/L (38-126); Anion Gap 7 mmol/L; Blood Urea Nitrogen 7 mg/dL (7-17); Carbon Dioxide 20 mmol/L (22-30); Chloride 112 mmol/L (98-107); Glucose 90 mg/dL (74-99); Magnesium 1.4 mg/dL (1.6-2.3); Potassium 4.2 mmol/L (3.5-5.1); Sodium 139 mmol/L (137-145); Total Bilirubin 0.3 mg/dL (0.2-1.3)
[2018-10-25 10:47] LABS: Eosinophils # (M) 0.15 k/uL (0-0.7); Lymphocytes # (M) 0.57 k/uL (1.0-4.8); Monocytes # (M) 0.38 k/uL (0-1.0); Neutrophils % (M) 42 %; Nucleated Red Blood Cells 0 /100 WBC (0-0); Total Cells Counted 100
[2018-10-25] MEDS ORDERED: SENNOSIDES 8.6 MG TAB PO PRN (11:02)
--- NOTE | 2018-10-25 11:05 | P.HPIM ---
History of Present Illness This is a pleasant 52 years old -[place] female with past medical history of adenocarcinoma of the lung, status post lobectomy, on 04/2018 patient was diagnosed with stage laryngeal cancer, treated with radiation therapy. On 07/2018, patient was found to have liver lesions and omental masses and pelvic masses and found to have recurrent adenocarcinoma of her lung. On that time patient was found to have pulmonary embolism and she was placed on anticoagulation with some evidence of bleeding per vagina going on. She has tenderness in the lower abdomen for which she got radiotherapy for her metastasis in the pelvis and omentum, her vaginal bleeding has stopped recently since then. She presents because of feeling gaggy in her throat , with difficulty in clearing her throat, to the degree that she vomited twice. She was not able to eat and drink 4 couple days. This is started having discharge from hospital. Last time she was in the hospital she was able to eat as she is confirming to me today and she didn't have these problems. Patient abdominal pain it's looks the same and is ongoing for a while. She was suffering from her pain because she could not follow up her medicine because she has been told she recently filled her prescription. Also patient could not follow up with her PCP Dr. olmstead because she is out of town. So she called her oncologist Dr. Fatima/Stephie 2 advise her to come to emergency room Currently patient she is breathing quietly. Abdominal pain looks controlled with pain medicine. She still and by mouth. Also patient says that her boyfriend has yesterday however she does not se ems depressed more than expected and she denies suicidal ideation. Past Medical History Past Medical History: Cancer, GERD/Reflux, Hyperlipidemia, Hypertension, Myocardial Infarction ([place]) Additional Past Medical History / Comment(s): BRAIN ANEURSYM, [place] 2012, LUNG CA diagnosed 2014, CARPAL TUNNEL RIGHT WRIST, throat CA dx apr 2018 Last Myocardial Infarction Date:: 04/30/2013 History of Any Multi-Drug Resistant Organisms: None Reported Past Surgical History: Heart Catheterization, Orthopedic Surgery, Tubal Ligation, Uterine Ablation Additional Past Surgical History / Comment(s): ANGIOPLASTY FOR BRAIN ANEURSYM, CARPEL TUNNEL RIGHT WRIST , and laparoscopy, PARTIAL RIGHT LUNG REMOVAL ,PTCA, Past Anesthesia/Blood Transfusion Reactions: No Reported Reaction Past Psychological History: Anxiety, Panic Disorder Smoking Status: Former smoker Past Alcohol Use History: None Reported Additional Past Alcohol Use History / Comment(s): Patient was a smoker and quit in May 2018. She denies any marijuana, illicit drug use or alcohol use. Her daughter is living with her. She is on disability. Past Drug Use History: None Reported - Past Family History Mother Family Medical History: Cancer Father Family Medical History: Cancer Medications and Allergies Home Medications Medication Instructions Recorded Confirmed Type Folic Acid 1 mg PO DAILY #30 tab 08/24/18 10/24/18 Rx Pantoprazole Sodium [Protonix] 40 mg PO DAILY #30 tablet. 08/24/18 10/24/18 Rx Ondansetron [Zofran ODT] 4 mg PO Q8HR PRN 08/30/18 10/24/18 History Acetaminophen Tab [Tylenol] 650 mg PO Q6HR PRN tab 09/01/18 10/24/18 Rx Atorvastatin [Lipitor] 80 mg PO HS tab 09/01/18 10/24/18 Rx Megestrol [Megace] 400 mg PO DAILY #30 cup 09/01/18 10/24/18 Rx Docusate [Colace] 100 mg PO BID PRN #60 capsule 09/09/18 10/24/18 Rx Magnesium Oxide [Mag-Ox] 400 mg PO DAILY #3 tab 09/09/18 10/24/18 Rx Sennosides [Senna] 8.6 mg PO HS PRN #60 tablet 09/09/18 10/24/18 Rx Lidocaine Viscous [Xylocaine 30 ml PO TID #300 ml 09/25/18 10/24/18 Rx Viscous 2%] Nystatin 100,000 Unit/ml Susp 3,000,000 unit PO TID #30 cup 09/25/18 10/24/18 Rx [Mycostatin Oral Susp] Apixaban [Eliquis] 5 mg PO BID 09/29/18 10/24/18 History Bisacodyl [Dulcolax] 10 mg PO DAILY PRN #7 tablet. 10/23/18 10/24/18 Rx Metoclopramide [Reglan] 5 mg PO ACHS #15 tab 10/23/18 10/24/18 Rx oxyCODONE-APAP 10-325MG [Percocet 1 tab PO QID PRN 2 Days #8 tab 10/23/18 10/24/18 Rx 10-325 mg] Allergies Allergy/AdvReac Type Severity Reaction Status Date / Time Penicillins Allergy Unknown Verified 10/24/18 12:54 Childhood Physical Exam Vitals: Vital Signs Temp Pulse Pulse Resp BP BP Pulse Ox 10/25/18 08:25 105 H 18 10/25/18 04:48 98.4 F 105 H 18 114/80 100 10/24/18 19:57 98.4 F 117 H 20 118/85 100 10/24/18 18:25 105 H 18 131/72 96 10/24/18 15:30 94 18 121/71 100 10/24/18 14:14 99.4 F 107 H 18 111/83 100 10/24/18 12:17 99.4 F 135 H 18 122/80 100 Intake and Output 10/24/18 10/25/18 10/25/18 22:59 06:59 14:59 Intake Total 1000 800 Balance 1000 800 Intake: Amount of Fluid Infused ( 1000 ml) Intake, IV Titration 800 Amount Sodium Chloride 0.9% 1, 800 000 ml @ 100 mls/hr IV . Q10H [facility] Rx#:[id number] Other: Voiding Method Toilet Toilet # Voids 1 GENERAL: The patient is alert and oriented x3, not in any acute distress. Well developed, well nourished. -HEENT: Pupils are round and equally reacting to light. EOMI. No scleral icterus. No conjunctival pallor. Normocephalic, atraumatic. No pharyngeal erythe ma. No thyromegaly. Dry mucous membranes CARDIOVASCULAR: S1 and S2 present. No murmurs, rubs, or gallops. PULMONARY: Chest is clear to auscultation, no wheezing or crackles. -ABDOMEN: Soft, bilateral lower abdominal tenderness, mild with no rebound tenderness, nondistended, normoactive bowel sounds. No palpable organomegaly. MUSCULOSKELETAL: No joint swelling or deformity. EXTREMITIES: No cyanosis, clubbing, or pedal edema. NEUROLOGICAL: Gross neurological examination did not reveal any focal deficits. SKIN: No rashes. Results CBC & Chem 7: 10/25/18 08:09 10/25/18 08:09 Labs: Abnormal Lab Results - Last 24 Hours (Table) 10/24/18 10/24/18 10/25/18 Range/Units 13:30 13:30 02:45 WBC 2.0 L (3.8-10.6) k/uL RBC 3.15 L (3.80-5.40) m/uL Hgb 8.7 L (11.4-16.0) gm/dL Hct 26.3 L (34.0-46.0) % RDW 19.6 H (11.5-15.5) % Plt Count 50 L (150-450) k/uL Neutrophils # (Manual) 1.26 L (1.3-7.7) k/uL Lymphocytes # (Manual) 0.36 L (1.0-4.8) k/uL Chloride 110 H (98-107) mmol/L Carbon Dioxide 19 L (22-30) mmol/L BUN 6 L (7-17) mg/dL Magnesium (1.6-2.3) mg/dL Total Protein 6.1 L (6.3-8.2) g/dL Albumin 3.1 L (3.5-5.0) g/dL Ur Leukocyte Esterase Trace H (Negative) Urine Bacteria Rare H (None) /hpf 10/25/18 10/25/18 Range/Units 08:09 08:09 WBC 1.9 L (3.8-10.6) k/uL RBC 2.86 L (3.80-5.40) m/uL Hgb 8.1 L (11.4-16.0) gm/dL Hct 24.5 L (34.0-46.0) % RDW 19.4 H (11.5-15.5) % Plt Count 40 L (150-450) k/uL Neutrophils # (Manual) (1.3-7.7) k/uL Lymphocytes # (Manual) (1.0-4.8) k/uL Chloride 112 H (98-107) mmol/L Carbon Dioxide 20 L (22-30) mmol/L BUN (7-17) mg/dL Magnesium 1.4 L (1.6-2.3) mg/dL Total Protein 6.0 L (6.3-8.2) g/dL Albumin 3.0 L (3.5-5.0) g/dL Ur Leukocyte Esterase (Negative) Urine Bacteria (None) /hpf Thrombosis Risk Factor Assmnt - Choose All That Apply Any of the Below Risk Factors Present?: Yes Each Factor Represents 1 point: Age 41-60 years, Obesity (BMI >25) Other Risk Factors: Yes Each Risk Factor Represents 2 Points: Malignancy Other congenital or acquired thrombophilia - If yes, enter type in comment: No Thrombosis Risk Factor Assessment Total Risk Factor Score: 4 Thrombosis Risk Factor Assessment Level: Moderate Risk Assessment and Plan Assessment: Irritation in the throat area, associated with nausea vomiting Recurrent nausea and vomiting with inability to eat for 2 days prior to admission Gastroenteritis, dehydration. Present on admission. Improveed Recent history of recurrent pulmonary adenocarcinoma, status post lobectomy. She follows up with Dr. garza as an outpatient setting Recent history of early stage laryngeal cancer. Follow-up as an outpatient History of pulmonary embolism on anticoagulation Metastatic disease to the pelvis, liver and omentum, status post radiotherapy vaginal bleeding, controlled and stopped Urinary irritation. urinary tract infection is ruled out. improved. Generalized weakness. Improved Right pleural effusion/thickening, mostly related to her cancer Plan: This is a pleasant 52 years old female who presents with nausea vomiting, dehydration and throat irritation. We will start the patient on parenteral hydration. We will ask for ENT evaluation for her throat problem in view of her history of laryngeal cancer. Oncology consult. Labs and medication were reviewed.. Continue same treatment. Continue with symptomatic treatment. Resume home medication. Continue with Protonix. Continue with the liquids. Continue with pain management.Labs and medication were reviewed.. Continue same treatment. Continue with symptomatic treatment. Resume home medication. Monitor lytes and vitals. DVT and GI prophylaxis. Further recommendations of the clinical course of the patient DVT prophylaxis: Eliquis GI Prophylaxis: Protonix PT/OT: Pending Prognosis is guarded
[2018-10-25] MEDS: DEXTROSE 5%-0.9% NACL 1,000 ML IV SCH (13:11)
[2018-10-25 14:01] LABS: Partial Thromboplastin Time 22.9 sec (22.0-30.0); Prothrombin Time 10.5 sec (9.0-12.0)
--- NOTE | 2018-10-25 14:45 | CT ---
EXAMINATION TYPE: CT ChestAbdPelvis w con DATE OF EXAM: 10/25/2018 COMPARISON: CT abdomen and pelvis August 15, 2018. CTA chest July 29, 2018. HISTORY: Restaging and persistent nausea and vomiting with history of lung and throat cancer. CT DLP: 1247 mGycm. Automated Exposure Control for Dose Reduction was Utilized. CONTRAST: CT scan of the thorax, abdomen and pelvis is performed with IV Contrast, patient injected with 100 mL of Isovue 300. FINDINGS: LUNGS: Moderate underlying emphysematous change is redemonstrated most prominent in the upper lobes. Some mild patchy bibasilar linear scarring and/or atelectasis. There is 5 mm nodule or nodular consol idation medial right lung base axial image 39 improved from prior. No new nodules or masses. No pleur al effusion or pneumothorax. MEDIASTINUM: There are no greater than 1 cm hilar or mediastinal lymph nodes. No cardiomegaly or pe ricardial effusion is seen. Main pulmonary artery is prominent at 3.0 cm axial image 24, CT findings suggesting underlying pulmonary artery hypertension. OTHER: Stable right internal jugular Mediport catheter. LIVER/GB: No definitive hypodense lesions clearly seen in liver on today's study consistent with inte rval improvement in metastatic burden. PANCREAS: No significant abnormality is seen. SPLEEN: No significant abnormality is seen. ADRENALS: There is 1.1 cm right adrenal mass axial image 50 stable in size from prior. There is sligh tly larger 1.3 cm left adrenal mass Axley image 52 stable in size from prior.. KIDNEYS: No significant abnormality is seen. BOWEL: No significant abnormality is seen. GENITAL ORGANS: Heterogeneous anteverted uterus is redemonstrated. Presence of nonopacified bowel loo ps makes evaluation for masses is suboptimal. There is interval improvement in peritoneal carcinomato sis with some persistent fluid in the nodular regularity involving the anterior abdominal wall of the lower abdomen extending into the upper pelvis. There is presumed interval significant improvement in solid and cystic right pelvic mass likely present near axial image 96. Calcified lesion left upper p temi axial image 91 is redemonstrated of uncertain etiology. There is interval improvement in fluid collections in the left upper pelvis with some rim-enhancing smaller collection still present. LYMPH NODES: No greater than 1cm abdominal or pelvic lymph nodes are appreciated. OSSEOUS STRUCTURES: Slight S-shaped scoliotic curvature in the thoracolumbar spine again seen. OTHER: No significant additional abnormality is seen. IMPRESSION: Suboptimal study without enteric contrast to differentiate bowel from pelvic structures. Overall improvement is present in ascites in disease burden in the lower abdomen and upper pelvis. M arked improvement in hepatic metastatic disease noted.
--- NOTE | 2018-10-25 14:53 | MR ---
EXAMINATION TYPE: MR brain wo/w con DATE OF EXAM: 10/25/2018 COMPARISON: MRI brain August 29, 2018. HISTORY: persistent nausea concern progression of known metastatic lung cancer. TECHNIQUE: Multiplanar, multisequence images of the brain and brainstem is performed without and with IV contras t, utilizing 6.5 mL intravenous Gadavist . FINDINGS: Diffusion weighted images demonstrate no evidence of a recent infarct or other diffusion ab normality. There is no worrisome extra-axial fluid collection. The ventricular system and cisternal spaces are normal in size and appearance. The brain volume is age appropriate. Occasional focus of T2 hyperintensity seen throughout the white matter bilaterally. There is stable reference 4 mm lesion right frontal lobe axial image 22. Midline structures demonstrate normal morphology. The craniocervical junction appears within normal limits. Post contrast images demonstrate no abnormal enhancement. The dural venous sinuses appear pa tent. The visualized sinuses are clear and the globes are intact. IMPRESSION: No suspicious enhancement or enhancing masses to suggest metastatic disease. No significa nt change from recent MRI.
[2018-10-25] MEDS: NYSTATIN 100,000 UNIT/ML SUSP 500,000 UNIT/5 ML CUP PO SCH ×2 (17:09→17:14)
[2018-10-25] MEDS ORDERED: SODIUM CHLORIDE 0.65% NASAL SPRAY 44 ML BTL NASAL PRN (17:23)
--- NOTE | 2018-10-25 17:31 | P.CONS ---
History of Present Illness - Reason for Consult Consult date: 10/25/18 Metastatic Cancer Requesting physician: Angel Zuleta - Chief Complaint Persistent vomiting - History of Present Illness The patient is a 52-year-old -[place] a complicated past Oncologic history. She had presented in 07/28 with a right lung mass, and underwent lobectomy in 08/28 revealing adenocarcinoma of the lung. She was recommended chemotherapy at that time, but did not follow-up. She had somewhat irregular follow-up subsequently with no evidence of recurrent disease until about 07/31. Incidentally in 05/01 she was diagnosed with an early-stage laryngeal cancer that was treated with definitive radiation. In 07/31, the patient presented with pelvic mass, liver lesions, as well as omental masses. She was found to have recurrent adenocarcinoma of the lung on the sciatic fluid cytology, as well as liver biopsy. PD-1 was strongly positive. Initiation of treatment was delayed, due to admission for influenza, during which she was found to have a PE. She was started on anticoagulation with eliquis but was admitted with vaginal bleeding. This improved with supplemental anticoagulation, which was later able to resumed She was again admitted on 08/28/18, with complains of weakness, dehydration and decreased appetite. She did improve with supportive care, and received her first cycle of chemotherapy with carboplatin and Alimta on 08/31/18. She was subsequently discharged. She has had numerous recent admissions. Last 3 days ago for nausea and abdominal pain f Her Last treatment was Carboplatin almta and Keytruda and she was treated on 10/12/18 (3rd cycle of chemo 2nd of immunotherapy). She states she feels there is something stuck in her throat sometimes, although she can swallow. she states it feels like sinus drainage. No oral thrush or lesions she does have cobblestoming and drainage so likely component of sinus and GERD. She is pancytopenic so her eliquis has been on hold. Her pain managment doctor is in the city and she is requesting web marketing assistant with this here as this is too far for her to go. Review of Systems A 14 point review of systems assessed and completed and all negative except HPI Past Medical History Past Medical History: Cancer, GERD/Reflux, Hyperlipidemia, Hypertension, Myocardial Infarction ([place]) Additional Past Medical History / Comment(s): BRAIN ANEURSYM, [place] 2012, LUNG CA diagnosed 2014, CARPAL TUNNEL RIGHT WRIST, throat CA dx apr 2018 Last Myocardial Infarction Date:: 04/30/2013 History of Any Multi-Drug Resistant Organisms: None Reported Past Surgical History: Heart Catheterization, Orthopedic Surgery, Tubal Ligation, Uterine Ablation Additional Past Surgical History / Comment(s): ANGIOPLASTY FOR BRAIN ANEURSYM, CARPEL TUNNEL RIGHT WRIST , and laparoscopy, PARTIAL RIGHT LUNG REMOVAL ,PTCA, Past Anesthesia/Blood Transfusion Reactions: No Reported Reaction Past Psychological History: Anxiety, Panic Disorder Smoking Status: Former smoker Past Alcohol Use History: None Reported Additional Past Alcohol Use History / Comment(s): Patient was a smoker and quit in May 2018. She denies any marijuana, illicit drug use or alcohol use. Her daughter is living with her. She is on disability. Past Drug Use History: None Reported - Past Family History Mother Family Medical History: Cancer Father Family Medical History: Cancer Medications and Allergies Home Medications Medication Instructions Recorded Confirmed Type Folic Acid 1 mg PO DAILY #30 tab 08/24/18 10/24/18 Rx Pantoprazole Sodium [Protonix] 40 mg PO DAILY #30 tablet. 08/24/18 10/24/18 Rx Ondansetron [Zofran ODT] 4 mg PO Q8HR PRN 08/30/18 10/24/18 History Acetaminophen Tab [Tylenol] 650 mg PO Q6HR PRN tab 09/01/18 10/24/18 Rx Atorvastatin [Lipitor] 80 mg PO HS tab 09/01/18 10/24/18 Rx Megestrol [Megace] 400 mg PO DAILY #30 cup 09/01/18 10/24/18 Rx Docusate [Colace] 100 mg PO BID PRN #60 capsule 09/09/18 10/24/18 Rx Magnesium Oxide [Mag-Ox] 400 mg PO DAILY #3 tab 09/09/18 10/24/18 Rx Sennosides [Senna] 8.6 mg PO HS PRN #60 tablet 09/09/18 10/24/18 Rx Lidocaine Viscous [Xylocaine 30 ml PO TID #300 ml 09/25/18 10/24/18 Rx Viscous 2%] Nystatin 100,000 Unit/ml Susp 3,000,000 unit PO TID #30 cup 09/25/18 10/24/18 Rx [Mycostatin Oral Susp] Apixaban [Eliquis] 5 mg PO BID 09/29/18 10/24/18 History Bisacodyl [Dulcolax] 10 mg PO DAILY PRN #7 tablet. 10/23/18 10/24/18 Rx Metoclopramide [Reglan] 5 mg PO ACHS #15 tab 10/23/18 10/24/18 Rx oxyCODONE-APAP 10-325MG [Percocet 1 tab PO QID PRN 2 Days #8 tab 10/23/18 10/24/18 Rx 10-325 mg] Allergies Allergy/AdvReac Type Severity Reaction Status Date / Time Penicillins Allergy Unknown Verified 10/24/18 12:54 Childhood Physical Exam Vitals: Vital Signs Temp Pulse Pulse Resp BP BP Pulse Ox 10/25/18 15:28 87 18 10/25/18 12:18 98.5 F 87 18 121/77 100 10/25/18 08:25 105 H 18 10/25/18 04:48 98.4 F 105 H 18 114/80 100 10/24/18 19:57 98.4 F 117 H 20 118/85 100 10/24/18 18:25 105 H 18 131/72 96 Intake and Output 10/25/18 10/25/18 10/25/18 06:59 14:59 22:59 Intake Total 800 0 Balance 800 0 Intake: Intake, IV Titration 800 Amount Sodium Chloride 0.9% 1, 800 000 ml @ 100 mls/hr IV . Q10H [facility] Rx#:[id number] Oral 0 Other: Voiding Method Toilet Toilet Toilet # Voids 3 3 General: Alert and Oriented x3, No Acute Distress Head: Normocytic, Atraumatic Neck: Supple Mouth: No Lesions, No Thrush Eyes: Non-sclerotic No Palpable cervical, supraclavicular, axillary adenopathy Heart: Regular Rate, Regular Rhythm Lungs: Clear to Ausculations, No Wheeze, No Rhonchi, Diminishe bilateral lower lobes, No increased respiratory effort noted Abdomen: Soft, Non-Distended, Non-Tended, BSx4 Extremities: No Edema, Equal Strength Neurological: No Focal Defects: No sensory or motor deficits noted Psych: Calm and cooperative Results CBC & Chem 7: 10/25/18 08:09 10/25/18 08:09 Labs: Abnormal Lab Results - Last 24 Hours (Table) 10/25/18 10/25/18 10/25/18 Range/Units 02:45 08:09 08:09 WBC 1.9 L (3.8-10.6) k/uL RBC 2.86 L (3.80-5.40) m/uL Hgb 8.1 L (11.4-16.0) gm/dL Hct 24.5 L (34.0-46.0) % RDW 19.4 H (11.5-15.5) % Plt Count 40 L (150-450) k/uL Neutrophils # (Manual) 0.80 L (1.3-7.7) k/uL Lymphocytes # (Manual) 0.57 L (1.0-4.8) k/uL Chloride 112 H (98-107) mmol/L Carbon Dioxide 20 L (22-30) mmol/L Magnesium 1.4 L (1.6-2.3) mg/dL Total Protein 6.0 L (6.3-8.2) g/dL Albumin 3.0 L (3.5-5.0) g/dL Ur Leukocyte Esterase Trace H (Negative) Urine Bacteria Rare H (None) /hpf CT scan - abdomen: report reviewed CT scan - chest: report reviewed CT scan - pelvis: report reviewed MRI - head: report reviewed, image reviewed Assessment and Plan Plan: Assessment and recs: 1. Persistent Nausea: - Appears to be precipitated with congestion and GERD. ENT to evaluate as she did previously have radiation to area and possibility of scar tissue growth or need dilation - Flonase, Zyrtek - Saline rinse 2. Recurrent Metastatic non small cell lung cancer: - Status post cycle 3 of Carboplatin, almta and Keytruda: - Restaging CT C/A/P show response to treatment - MRI negative for progression 3. Neoplastic related pain: - Will add fentanyl low dose - Her Pain Management is over 1.5 hours away so will ask Dr. Valdez to take over management here and would like new prescription and us to fill here prior to discharge - Educated on no supp or fleets with low blood counts and daily senna-s and prn laxatives 4. Constipation: - Increase Bowel regimen, details above 5. Pancytopenia: secondary to chemotherapy - Hold Anticoagulation secondary to platlet count less than 50K 6. Hypomagnesium: - Chronic low - Continue on daily supp DISPO per primary but likely tomorrow if tolerates PO intake today
[2018-10-25] MEDS: LORATADINE 10 MG TAB PO SCH (18:07)
[2018-10-25] MEDS ORDERED: MAGNESIUM SULFATE-D5W PMX 1 GM in DEXTROSE/WATER 1 100ML.BAG IVPB ONE (18:14)
[2018-10-25] MEDS: FLUTICASONE 50MCG/SPRAY NASAL 16GM EA NOSTRIL SCH (18:18)
--- NOTE | 2018-10-25 20:03 | P.CONS ---
History of Present Illness - Reason for Consult Consult date: 10/25/18 Requesting physician: Tri Walkre - Chief Complaint abdominal pain - History of Present Illness Thank you Ms. Walker for allowing me to participate in the care of Ms. Krishna. Ms. Krishna is a very pleasant 52-year-old female who lives with her sister and her sister's children who was admitted for throat irritation and feeling like she had difficulty breathing as though something was stuck. She has a history of metastatic lung cancer and also a history of laryngeal cancer. Laryngeal cancer was treated with radiation and she is currently finishing chemotherapy for her lung cancer with improvement of disease burden demonstrated on computed tomography scan. She states most of her pain is in her abdomen and describes it as dull anywhere from 4-8/10 in intensity. She states as an outpatient she takes Percocet 10/325 4 times daily and this controls her pain well. She hopes that as she improves with her treatment as she can decrease pain medicine and maybe take none. It sounds like she did recently have some home physical therapy which she found beneficial. She states that sometimes she has to walk with a walker due to pain and fatigue. Since she has been admitted she has been eating without difficulty and has no difficulty with swallowing. Review of Systems 10 point review of systems was performed and significant for throat pain, abdominal pain, fatigue the remainder was negative. Past Medical History Past Medical History: Cancer, GERD/Reflux, Hyperlipidemia, Hypertension, Myoca [place]dial Infarction ([place]) Additional Past Medical History / Comment(s): BRAIN ANEURSYM, [place] 2012, LUNG CA diagnosed 2014, CARPAL TUNNEL RIGHT WRIST, throat CA dx apr 2018 Last Myocardial Infarction Date:: 04/30/2013 History of Any Multi-Drug Resistant Organisms: None Reported Past Surgical History: Heart Catheterization, Orthopedic Surgery, Tubal Ligation, Uterine Ablation Additional Past Surgical History / Comment(s): ANGIOPLASTY FOR BRAIN ANEURSYM, CARPEL TUNNEL RIGHT WRIST , and laparoscopy, PARTIAL RIGHT LUNG REMOVAL ,PTCA, Past Anesthesia/Blood Transfusion Reactions: No Reported Reaction Past Psychological History: Anxiety, Panic Disorder Smoking Status: Former smoker Past Alcohol Use History: None Reported Additional Past Alcohol Use History / Comment(s): Patient was a smoker and quit in May 2018. She denies any marijuana, illicit drug use or alcohol use. Her daughter is living with her. She is on disability. Past Drug Use History: None Reported - Past Family History Mother Family Medical History: Cancer Father Family Medical History: Cancer Medications and Allergies Home Medications Medication Instructions Recorded Confirmed Type Folic Acid 1 mg PO DAILY #30 tab 08/24/18 10/24/18 Rx Pantoprazole Sodium [Protonix] 40 mg PO DAILY #30 tablet. 08/24/18 10/24/18 Rx Ondansetron [Zofran ODT] 4 mg PO Q8HR PRN 08/30/18 10/24/18 History Acetaminophen Tab [Tylenol] 650 mg PO Q6HR PRN tab 09/01/18 10/24/18 Rx Atorvastatin [Lipitor] 80 mg PO HS tab 09/01/18 10/24/18 Rx Megestrol [Megace] 400 mg PO DAILY #30 cup 09/01/18 10/24/18 Rx Docusate [Colace] 100 mg PO BID PRN #60 capsule 09/09/18 10/24/18 Rx Magnesium Oxide [Mag-Ox] 400 mg PO DAILY #3 tab 09/09/18 10/24/18 Rx Sennosides [Senna] 8.6 mg PO HS PRN #60 tablet 09/09/18 10/24/18 Rx Lidocaine Viscous [Xylocaine 30 ml PO TID #300 ml 09/25/18 10/24/18 Rx Viscous 2%] Nystatin 100,000 Unit/ml Susp 3,000,000 unit PO TID #30 cup 09/25/18 10/24/18 Rx [Mycostatin Oral Susp] Apixaban [Eliquis] 5 mg PO BID 09/29/18 10/24/18 History Bisacodyl [Dulcolax] 10 mg PO DAILY PRN #7 tablet. 10/23/18 10/24/18 Rx Metoclopramide [Reglan] 5 mg PO ACHS #15 tab 10/23/18 10/24/18 Rx oxyCODONE-APAP 10-325MG [Percocet 1 tab PO QID PRN 2 Days #8 tab 10/23/18 10/24/18 Rx 10-325 mg] Allergies Allergy/AdvReac Type Severity Reaction Status Date / Time Penicillins Allergy Unknown Verified 10/24/18 12:54 Childhood Physical Exam Osteopathic Statement: *. No significant issues noted on an osteopathic structural exam other than those noted in the History and Physical/Consult. Vitals: Vital Signs Temp Pulse Resp BP Pulse Ox 10/25/18 15:28 87 18 10/25/18 12:18 98.5 F 87 18 121/77 100 10/25/18 08:25 105 H 18 10/25/18 04:48 98.4 F 105 H 18 114/80 100 10/24/18 19:57 98.4 F 117 H 20 118/85 100 Intake and Output 10/25/18 10/25/18 10/25/18 06:59 14:59 22:59 Intake Total 800 0 Balance 800 0 Intake: Intake, IV Titration 800 Amount Sodium Chloride 0.9% 1, 800 000 ml @ 100 mls/hr IV . Q10H [facility] Rx#:[id number] Oral 0 Other: Voiding Method Toilet Toilet Toilet # Voids 3 3 Gen.: Alert and oriented pleasant not in distress HEENT: Normocephalic/atraumatic, extraocular muscles intact, voice raspy, postinflammatory hyperpigmentation of the neck Respiratory: Breathing nonlabored, no accessory muscle use noted Cardiovascular: Regular rate and rhythm, no peripheral edema noted Abdomen: Soft modestly tender diffusely Musculoskeletal: Hip flexion 3+/5 bilaterally, knee extension, dorsiflexion, ankle inversion and eversion, EHL 5/5 bilaterally Neurologic: Patellar and Achilles reflexes 1/4 bilaterally, no ankle clonus, sensation of pinprick normal L3 through S1. Results CBC & Chem 7: 10/25/18 08:09 10/25/18 08:09 Labs: Abnormal Lab Results - Last 24 Hours (Table) 10/25/18 10/25/18 10/25/18 Range/Units 02:45 08:09 08:09 WBC 1.9 L (3.8-10.6) k/uL RBC 2.86 L (3.80-5.40) m/uL Hgb 8.1 L (11.4-16.0) gm/dL Hct 24.5 L (34.0-46.0) % RDW 19.4 H (11.5-15.5) % Plt Count 40 L (150-450) k/uL Neutrophils # (Manual) 0.80 L (1.3-7.7) k/uL Lymphocytes # (Manual) 0.57 L (1.0-4.8) k/uL Chloride 112 H (98-107) mmol/L Carbon Dioxide 20 L (22-30) mmol/L Magnesium 1.4 L (1.6-2.3) mg/dL Total Protein 6.0 L (6.3-8.2) g/dL Albumin 3.0 L (3.5-5.0) g/dL Ur Leukocyte Esterase Trace H (Negative) Urine Bacteria Rare H (None) /hpf CT scan - abdomen: report reviewed CT scan - chest: report reviewed CT Scan - head: report reviewed CT scan - pelvis: report reviewed MRI - head: report reviewed Assessment and Plan (1) Abdominal pain Current Visit: Yes Status: Acute Code(s): R10.9 - UNSPECIFIED ABDOMINAL PAIN SNOMED Code(s): 19550347 (2) Anemia Current Visit: No Status: Acute Priority: Medium Code(s): D64.9 - ANEMIA, UNSPECIFIED SNOMED Code(s): 446986894 (3) Ascites Current Visit: No Status: Acute Code(s): R18.8 - OTHER ASCITES SNOMED Code(s): 455338331 (4) At risk for readmission to hospital Current Visit: No Status: Acute Code(s): Z91.89 - OTH PERSONAL RISK FACTORS, NOT ELSEWHERE CLASSIFIED SNOMED Code(s): 4650500354239 (5) Bilateral radiating leg pain Current Visit: No Status: Acute Priority: High Code(s): M54.10 - RADICULOPATHY, SITE UNSPECIFIED SNOMED Code(s): 78527489 (6) Cancer associated pain Current Visit: No Status: Acute Code(s): G89.3 - NEOPLASM RELATED PAIN (ACUTE) (CHRONIC) SNOMED Code(s): 93358423737441 (7) Chest pain Current Visit: No Status: Acute Code(s): R07.9 - CHEST PAIN, UNSPECIFIED SNOMED Code(s): 43865047 Plan: Ms. Krishna states that her pain was well controlled on Percocet 10/325 every 6 hours on an outpatient basis. Fentanyl patch 12 g was initiated this admission to try to decrease how many pills the patient has to take. Ms. Krishna states she would like to continue with the patch to see if it works so that she doesn't hav e to take pills and overall looks forward to decreasing her pain medicine burden as her medical status improves. Would recommend at discharge patient take MiraLAX daily as well. I agree with trial of current regimen. Patient can follow-up in the office for further outpatient management. Also consider more home physical therapy has a patient has fatigue and deconditioning associated with her chemotherapy treatment.
[2018-10-25] MEDS ORDERED: ATORVASTATIN 80 MG TAB PO SCH (21:00)
[2018-10-25] MEDS ORDERED: MONTELUKAST 10 MG TAB PO SCH (21:00)
[2018-10-25] MEDS ORDERED: APIXABAN 5 MG TAB PO SCH (21:00)
[2018-10-25] MEDS: MAGNESIUM OXIDE 400 MG TAB PO SCH (21:12)
[2018-10-26] MEDS: DEXTROSE 5%-0.9% NACL 1,000 ML IV SCH (05:09)
[2018-10-26] MEDS: HYDROmorphone 0.5 MG/0.5 ML SYRINGE IVP PRN ×4 (05:35→16:06)
[2018-10-26] MEDS ORDERED: PANTOPRAZOLE 40 MG TABLET PO SCH (07:30)
[2018-10-26] MEDS: FLUTICASONE 50MCG/SPRAY NASAL 16GM EA NOSTRIL SCH (08:03)
[2018-10-26] MEDS: FOLIC ACID 1 MG TAB PO SCH (08:03)
[2018-10-26] MEDS: LORATADINE 10 MG TAB PO SCH (08:03)
[2018-10-26] MEDS: METOCLOPRAMIDE 5 MG TAB PO SCH ×3 (08:03→18:00)
[2018-10-26] MEDS: MAGNESIUM OXIDE 400 MG TAB PO SCH ×2 (08:03→16:07)
[2018-10-26] MEDS: LIDOCAINE VISCOUS 2% 15 ML CUP MUCOUS MEM SCH ×3 (08:03→16:10)
[2018-10-26 09:16] LABS: Anisocytosis Slight; HCT 26.1 % (34.0-46.0); HGB 8.4 gm/dL (11.4-16.0); Hypochromasia Slight; MCH 27.9 pg (25.0-35.0); MCHC 32.3 g/dL (31.0-37.0); MCV 86.6 fL (80.0-100.0); Mean Platelet Volume 9.6; RBC 3.02 m/uL (3.80-5.40); RDW 19.6 % (11.5-15.5)
[2018-10-26 09:18] LABS: Platelet Count 28 k/uL (150-450)
[2018-10-26 09:23] LABS: ALT 26 U/L (9-52); AST 25 U/L (14-36); African American GFR (CKD) >90 (>60 ml/min/1.73 sqM); Albumin 3.1 g/dL (3.5-5.0); Alkaline Phosphatase 76 U/L (38-126); Anion Gap 9 mmol/L; Blood Urea Nitrogen 4 mg/dL (7-17); Calcium 9.1 mg/dL (8.4-10.2); Carbon Dioxide 20 mmol/L (22-30); Chloride 111 mmol/L (98-107); Glucose 100 mg/dL (74-99); Magnesium 1.8 mg/dL (1.6-2.3); Potassium 4.1 mmol/L (3.5-5.1); Sodium 140 mmol/L (137-145); Total Bilirubin 0.3 mg/dL (0.2-1.3); Total Protein 6.2 g/dL (6.3-8.2)
[2018-10-26 10:38] LABS: Eosinophils # (M) 0.36 k/uL (0-0.7); Lymphocytes # (M) 0.48 k/uL (1.0-4.8); Monocytes # (M) 0.34 k/uL (0-1.0); Neutrophils # (M) 0.82 k/uL (1.3-7.7); Neutrophils % (M) 41 %; Nucleated Red Blood Cells 0 /100 WBC (0-0); Total Cells Counted 100
[2018-10-26 10:39] LABS: Poikilocytosis (M) Present; Polychromasia Present
--- NOTE | 2018-10-26 12:18 | P.PN ---
Subjective Progress Note Date: 10/26/18 Principal diagnosis: Persistent Nausea, Thrombocytopenia, Pain. Her Platlet count is continuing to trend down. 28K today, therefore continue to hold Anticoagulation. Objective - Vital Signs Vital signs: Vital Signs Temp 97.9 F 10/26/18 05:11 Pulse 121 H 10/26/18 05:11 Resp 18 10/26/18 05:11 BP 125/72 10/26/18 05:11 Pulse Ox 99 10/26/18 05:11 Intake & Output 10/25/18 10/26/18 10/26/18 18:59 06:59 18:59 Intake Total 0 860 240 Balance 0 860 240 Intake: Intake, IV Titration 500 Amount Dextrose 5%-0.9% NaCl 1, 400 000 ml @ 50 mls/hr IV . Q20H [facility] Rx#:[id number] Magnesium Sulfate-D5w Pmx 100 1 gm In Dextrose/Water 1 100ml.bag @ 100 mls/hr IVPB ONCE ONE Rx#: [id number] Oral 0 360 240 Other: Voiding Method Toilet Toilet Toilet # Voids 3 2 - Exam General: Alert and Oriented x3, No Acute Distress Head: Normocytic, Atraumatic Neck: Supple Mouth: No Lesions, No Thrush Eyes: Non-sclerotic No Palpable cervical, supraclavicular, axillary adenopathy Heart: Regular Rate, Regular Rhythm Lungs: Clear to Ausculations, No Wheeze, No Rhonchi, Diminishe bilateral lower lobes, No increased respiratory effort noted Abdomen: Soft, Non-Distended, Non-Tended, BSx4 Extremities: No Edema, Equal Strength Neurological: No Focal Defects: No sensory or motor deficits noted Psych: Calm and cooperative - Labs CBC & Chem 7: 10/26/18 07:50 10/26/18 07:50 Labs: Abnormal Lab Results - Last 24 Hours (Table) 10/26/18 10/26/18 Range/Units 07:50 07:50 WBC 2.0 L (3.8-10.6) k/uL RBC 3.02 L (3.80-5.40) m/uL Hgb 8.4 L (11.4-16.0) gm/dL Hct 26.1 L (34.0-46.0) % RDW 19.6 H (11.5-15.5) % Plt Count 28 L (150-450) k/uL Neutrophils # (Manual) 0.82 L (1.3-7.7) k/uL Lymphocytes # (Manual) 0.48 L (1.0-4.8) k/uL Chloride 111 H (98-107) mmol/L Carbon Dioxide 20 L (22-30) mmol/L BUN 4 L (7-17) mg/dL Glucose 100 H (74-99) mg/dL Total Protein 6.2 L (6.3-8.2) g/dL Albumin 3.1 L (3.5-5.0) g/dL Assessment and Plan Plan: Assessment and recs: 1. Persistent Nausea: - Appears to be precipitated with congestion and GERD. ENT to evaluate as she did previously have radiation to area and possibility of scar tissue growth or need dilation - Flonase, Zyrtek - Saline rinse 2. Recurrent Metastatic non small cell lung cancer: - Status post cycle 3 of Carboplatin, almta and Keytruda: - Restaging CT C/A/P show response to treatment - MRI negative for progression 3. Neoplastic related pain: - Will add fentanyl low dose - Her Pain Management is over 1.5 hours away so will ask Dr. Valdez to take over management here and would like new prescription and us to fill here prior to discharge - Educated on no supp or fleets with low blood counts and daily senna-s and prn laxatives 4. Constipation: - Increase Bowel regimen, details above 5. Pancytopenia: secondary to chemotherapy - Hold Anticoagulation secondary to platlet count less than 50K 6. Hypomagnesium: - Chronic low - Continue on daily supp 7. Thrombocytopenia: Worsening - No active signs of bleeding - Continue to hold anticoagulation - Likely from chemotherapy DISPO per primary but likely tomorrow if tolerates PO intake today Plan to discharge on fentanyl patch and oxycodone/acetamino breakthrough (agreement with office until she can see Dr. Srivastava as outpatient) - 3 day supply givrn PPI, Claritin, Intense bowel protocol also prescribed and prescriptions to pharmacy. - If she uis discharged today or over weekend she will have CBC in office mo nday
[2018-10-26 12:55] VITALS: BP 140/80; PULSE 110; TEMP 97.4
--- NOTE | 2018-10-26 13:23 | P.PN ---
Subjective This is a pleasant 52 years old -[place] female with past medical history of adenocarcinoma of the lung, status post lobectomy, on 04/2018 patient was diagnosed with stage laryngeal cancer, treated with radiation therapy. On 07/2018, patient was found to have liver lesions and omental masses and pelvic masses and found to have recurrent adenocarcinoma of her lung. On that time patient was found to have pulmonary embolism and she was placed on anticoagulation with some evidence of bleeding per vagina going on. She has tenderness in the lower abdomen for which she got radiotherapy for her metastasis in the pelvis and omentum, her vaginal bleeding has stopped recently since then. She presents because of feeling gaggy in her throat , with difficulty in clearing her throat, to the degree that she vomited twice. She was not able to eat and drink 4 couple days. This is started having discharge from hospital. Last time she was in the hospital she was able to eat as she is confirming to me today and she didn't have these problems. Patient abdominal pain it's looks the same and is ongoing for a while. She was suffering from her pain because she could not follow up her medicine because she has been told she recently filled her prescription. Also patient could not follow up with her PCP Dr. olmstead because she is out of town. So she called her oncologist Dr. Fatima/Stephie 2 advise her to come to emergency room Currently patient she is breathing quietly. Abdominal pain looks controlled with pain medicine. She still and by mouth. Also patient says that her boyfriend has yesterday however she does not seems depressed more than expected and she denies suicidal ideation. 10/26/2018 Patient is awake oriented, her abdominal pain is controlled after starting pain medication and fentanyl patch, patient has been seen by pain management team. Patient throat irritation is less today. ENT team has been contacted and they wanted to see the patient in the office for her than inpatient to be examined properly. Oncology team are following the case closely. Patient was able to tolerate diet this morning. No nausea vomiting. However somewhat evaluation is pending. Patient is hemodynamically stable. WBC 2.0K, hemoglobin 8.4, however her platelets dropped from 40 down to 28. Eliquis for her history of pulmonary embolism is on hold for thrombocytopenia. Brain MRI no suspicious masses to suggest metastatic disease. CT with the abdomen, pelvis and chest with contrast showing marked improvement in her hepatic metastatic disease. Continue with gentle hydration, pain management and bowel regimen Objective - Vital Signs Vital signs: Vital Signs Temp 97.4 F L 10/26/18 12:54 Pulse 110 H 10/26/18 12:54 Resp 18 10/26/18 12:54 BP 140/80 10/26/18 12:54 Pulse Ox 99 10/26/18 12:54 Intake & Output 10/25/18 10/26/18 10/26/18 18:59 06:59 18:59 Intake Total 0 860 240 Balance 0 860 240 Intake: Intake, IV Titration 500 Amount Dextrose 5%-0.9% NaCl 1, 400 000 ml @ 50 mls/hr IV . Q20H NAINA Rx#:[id number] Magnesium Sulfate-D5w Pmx 100 1 gm In Dextrose/Water 1 100ml.bag @ 100 mls/hr IVPB ONCE ONE Rx#: [id number] Oral 0 360 240 Other: Voiding Method Toilet Toilet Toilet # Voids 3 2 - Exam GENERAL: The patient is alert and oriented x3, not in any acute distress. Well developed, well nourished. -HEENT: Pupils are round and equally reacting to light. EOMI. No scleral icterus. No conjunctival pallor. Normocephalic, atraumatic. No pharyngeal erythema. No thyromegaly. Dry mucous membranes CARDIOVASCULAR: S1 and S2 present. No murmurs, rubs, or gallops. PULMONARY: Chest is clear to auscultation, no wheezing or crackles. -ABDOMEN: Soft, bilateral lower abdominal tenderness, mild with no rebound tenderness, nondistended, normoactive bowel sounds. No palpable organomegaly. MUSCULOSKELETAL: No joint swelling or deformity. EXTREMITIES: No cyanosis, clubbing, or pedal edema. NEUROLOGICAL: Gross neurological examination did not reveal any focal deficits. SKIN: No rashes. - Labs CBC & Chem 7: 10/26/18 07:50 10/26/18 07:50 Labs: Abnormal Lab Results - Last 24 Hours (Table) 10/26/18 10/26/18 Range/Units 07:50 07:50 WBC 2.0 L (3.8-10.6) k/uL RBC 3.02 L (3.80-5.40) m/uL Hgb 8.4 L (11.4-16.0) gm/dL Hct 26.1 L (34.0-46.0) % RDW 19.6 H (11.5-15.5) % Plt Count 28 L (150-450) k/uL Neutrophils # (Manual) 0.82 L (1.3-7.7) k/uL Lymphocytes # (Manual) 0.48 L (1.0-4.8) k/uL Chloride 111 H (98-107) mmol/L Carbon Dioxide 20 L (22-30) mmol/L BUN 4 L (7-17) mg/dL Glucose 100 H (74-99) mg/dL Total Protein 6.2 L (6.3-8.2) g/dL Albumin 3.1 L (3.5-5.0) g/dL Assessment and Plan Assessment: Irritation in the throat area, associated with nausea vomiting, improving Recurrent nausea and vomiting with inability to eat for 2 days prior to admission. Improving Thrombocytopenia Gastroenteritis, dehydration. Present on admission. Improveed Recent history of recurrent pulmonary adenocarcinoma, status post lobectomy. She follows up with Dr. garza as an outpatient setting Recent history of early stage laryngeal cancer. Follow-up as an outpatient History of pulmonary embolism on anticoagulation, Eliquis on hold due to thrombocytopenia Metastatic disease to the pelvis, liver and omentum, status post radiotherapy vaginal bleeding, controlled and stopped Urinary irritation. urinary tract infection is ruled out. improved. Generalized weakness. Improved Right pleural effusion/thickening, mostly related to her cancer Plan: This is a pleasant 52 years old female who presents with nausea vomiting, dehydration and throat irritation. We will start the patient on parenteral hydration. We will ask for ENT evaluation for her throat problem in view of her history of laryngeal cancer. Oncology consult. Labs and medication were reviewed.. Continue same treatment. Continue with symptomatic treatment. Resume home medication. Continue with Protonix. Continue with the liquids. Continue with pain management.Labs and medication were reviewed.. Continue same treatment. Continue with symptomatic treatment. Resume home medication. Mon itor lytes and vitals. DVT and GI prophylaxis. Further recommendations of the clinical course of the patient DVT prophylaxis: Eliquis GI Prophylaxis: Protonix PT/OT: Pending Prognosis is guarded
[2018-10-26] MEDS ORDERED: SENNOSIDES-DOCUSATE SODIUM 1 EACH TAB PO SCH (21:00)
== END 2018-10-26 18:35 | disposition home health service (06) ==
LOC: EC 11:50 → INTOOBSV 16:27 → 3NMEDONC 16:27 → OBSVTOIN 16:27 → 3NMEDONC 19:04 → UNDODISIN 10-26 18:35
PROVIDERS: ADMIT Internal Medicine; ATTEND Internal Medicine
DX: R10.9 Unspecified abdominal pain (principal); R11.2 Nausea with vomiting, unspecified; R07.0 Pain in throat; E86.0 Dehydration; J90 Pleural effusion, not elsewhere classified; C78.7 Secondary malignant neoplasm of liver and intrahepatic bile duct; C78.6 Secondary malignant neoplasm of retroperitoneum and peritoneum; C79.89 Secondary malignant neoplasm of other specified sites; C34.90 Malignant neoplasm of unspecified part of unspecified bronchus or lung; C32.9 Malignant neoplasm of larynx, unspecified; D61.810 Antineoplastic chemotherapy induced pancytopenia; R18.8 Other ascites; E83.42 Hypomagnesemia; G89.3 Neoplasm related pain (acute) (chronic); K52.9 Noninfective gastroenteritis and colitis, unspecified; F41.0 Panic disorder [episodic paroxysmal anxiety]; I10 Essential (primary) hypertension; M54.10 Radiculopathy, site unspecified; K21.9 Gastro-esophageal reflux disease without esophagitis; E78.5 Hyperlipidemia, unspecified; E66.9 Obesity, unspecified; Z68.25 Body mass index [BMI] 25.0-25.9, adult; K59.00 Constipation, unspecified; I25.2 Old myocardial infarction; Z79.01 Long term (current) use of anticoagulants; Z79.818 Long term (current) use of other agents affecting estrogen receptors and estrogen levels; Z79.899 Other long term (current) drug therapy; Z87.891 Personal history of nicotine dependence; Z90.2 Acquired absence of lung [part of]; Z92.3 Personal history of irradiation; Z85.118 Personal history of other malignant neoplasm of bronchus and lung; Z98.890 Other specified postprocedural states; Z86.79 Personal history of other diseases of the circulatory system; Z86.711 Personal history of pulmonary embolism; Z98.51 Tubal ligation status; Z98.61 Coronary angioplasty status; Z88.0 Allergy status to penicillin; F41.9 Anxiety disorder, unspecified; Z80.9 Family history of malignant neoplasm, unspecified
CPT/HCPCS: 96376 ×4; 96361; 96365; 96375 ×2; 99285; 36415; 92610; 80053 ×3; 84443; 82533 ×2; 82150; 83690; 83735 ×2; 85025 ×3; 85610; 85730; 81001; 74018; 71260; 74177; 70553; G0378 ×3; J2405 ×2; J1170 ×4; J3475; J1642; A9585; Q9967; 96374

== ENCOUNTER 2018-11-05 16:56 | Inpatient (IN) | payer OTHER ==
[2018-11-05] MEDS ORDERED: SODIUM CHLORIDE 0.9% 1,000 ML IV STA ×4 (17:13→18:05)
--- NOTE | 2018-11-05 17:17 | ED ---
Recheck HPI - General Chief Complaint: Recheck/Abnormal Lab/Rx Stated Complaint: TACHACARDIA AND WEAKNESS Time Seen by Provider: 11/05/18 16:59 Source: patient, EMS, RN notes reviewed, old records reviewed Mode of arrival: EMS Limitations: no limitations - History of Present Illness MD Complaint: other (elevated HR, dehydration, Weakness, Fever) -: week(s) Returns Today for: Called Because of Abnormal Lab/Test, other (elevated HR) Symptoms Since Prior Visit: no new symptoms (weakness) Context: called for abnormal lab result Associated Symptoms: fever, chills, malaise, nausea - Related Data Home Medications Medication Instructions Recorded Confirmed Ondansetron [Zofran ODT] 4 mg PO Q8HR PRN 08/30/18 11/05/18 Sennosides-Docusate Sodium 2 tab PO BID 11/05/18 11/05/18 [Senokot-S] Previous Rx's Medication Instructions Recorded Folic Acid 1 mg PO DAILY #30 tab 08/24/18 Pantoprazole Sodium [Protonix] 40 mg PO DAILY #30 tablet. 08/24/18 Acetaminophen Tab [Tylenol] 650 mg PO Q6HR PRN tab 09/01/18 Atorvastatin [Lipitor] 80 mg PO HS tab 09/01/18 Megestrol [Megace] 400 mg PO DAILY #30 cup 09/01/18 Docusate [Colace] 100 mg PO BID PRN #60 capsule 09/09/18 Sennosides [Senna] 8.6 mg PO HS PRN #60 tablet 09/09/18 Lidocaine Viscous [Xylocaine 30 ml PO TID #300 ml 09/25/18 Viscous 2%] Nystatin 100,000 Unit/ml Susp 3,000,000 unit PO TID #30 cup 09/25/18 [Mycostatin Oral Susp] Bisacodyl [Dulcolax] 10 mg PO DAILY PRN #7 tablet. 10/23/18 Metoclopramide [Reglan] 5 mg PO ACHS #15 tab 10/23/18 Fluticasone Nasal [place] [Flonase 2 spray EA NOSTRIL DAILY #1 bottle 10/26/18 Nasal [place]] Loratadine [Claritin] 10 mg PO DAILY #30 tab 10/26/18 Magnesium Oxide [Mag-Ox] 400 mg PO TID #90 tab 10/26/18 Montelukast [Singulair] 10 mg PO HS #30 tab 10/26/18 Polyethylene Glycol 3350 [Miralax] 17 gm PO DAILY 30 Days #30 packet 10/26/18 fentaNYL 12MCG/HR PATCH [Duragesic 1 patch TRANSDERM Q72H #10 patch 10/26/18 12MCG/HR] oxyCODONE-APAP 10-325MG [Percocet 1 tab PO QID PRN 3 Days #12 tab 10/26/18 10-325 mg] Allergies Allergy/AdvReac Type Severity Reaction Status Date / Time Penicillins Allergy Unknown Verified 11/05/18 17:51 Childhood Review of Systems ROS Statement: Those systems with pertinent positive or pertinent negative responses have been documented in the HPI. ROS Other: All systems not noted in ROS Statement are negative. Past Medical History Past Medical History: Cancer, GERD/Reflux, Hyperlipidemia, Hypertension, Myocardial Infarction ([place]) Additional Past Medical History / Comment(s): BRAIN ANEURSYM, [place] 2012, LUNG CA diagnosed 2014, CARPAL TUNNEL RIGHT WRIST, throat CA dx apr 2018 Last Myocardial Infarction Date:: 04/30/2013 History of Any Multi-Drug Resistant Organisms: None Reported Past Surgical History: Heart Catheterization, Orthopedic Surgery, Tubal Ligation, Uterine Ablation Additional Past Surgical History / Comment(s): ANGIOPLASTY FOR BRAIN ANEURSYM, CARPEL TUNNEL RIGHT WRIST , and laparoscopy, PARTIAL RIGHT LUNG REMOVAL ,PTCA, Past Anesthesia/Blood Transfusion Reactions: No Reported Reaction Past Psychological History: Anxiety, Panic Disorder Smoking Status: Former smoker Past Alcohol Use History: None Reported Past Drug Use History: None Reported - Past Family History Mother Family Medical History: Cancer Father Family Medical History: Cancer General Exam Limitations: no limitations General appearance: alert, in no apparent distress Head exam: Present: atraumatic, normocephalic, normal inspection Eye exam: Present: normal appearance, PERRL, EOMI. Absent: scleral icterus, conjunctival injection, periorbital swelling ENT exam: Present: normal exam, mucous membranes moist Neck exam: Present: normal inspection. Absent: tenderness, meningismus, lymphadenopathy Respiratory exam: Present: normal lung sounds bilaterally. Absent: respiratory distress, wheezes, rales, rhonchi, stridor Cardiovascular Exam: Present: regular rate, normal rhythm, normal heart sounds. Absent: systolic murmur, diastolic murmur, rubs, gallop, clicks GI/Abdominal exam: Present: soft, normal bowel sounds. Absent: distended, tenderness, guarding, rebound, rigid Extremities exam: Present: normal inspection, full ROM, normal capillary refill. Absent: tenderness, pedal edema, joint swelling, calf tenderness Back exam: Present: normal inspection Neurological exam: Present: alert, oriented X3, CN II-XII intact Psychiatric exam: Present: normal affect, normal mood Skin exam: Present: warm, dry, intact, normal color. 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 We'll admit for IV antibiotics rule out bacteremia, patient also admitted for IV resuscitation - Lab Data Result diagrams: 11/05/18 17:40 11/05/18 17:40 Lab Results 11/05/18 11/05/18 11/05/18 Range/Units 17:40 17:40 17:40 WBC 2.7 L (3.8-10.6) k/uL RBC 2.75 L (3.80-5.40) m/uL Hgb 7.7 L (11.4-16.0) gm/dL Hct 23.8 L (34.0-46.0) % MCV 86.2 (80.0-100.0) fL MCH 28.1 (25.0-35.0) pg MCHC 32.5 (31.0-37.0) g/dL RDW 22.1 H (11.5-15.5) % Plt Count 263 D (150-450) k/uL Neutrophils % 77 % Lymphocytes % 16 % Monocytes % 2 % Eosinophils % 2 % Basophils % 0 % Neutrophils # 2.1 (1.3-7.7) k/uL Lymphocytes # 0.4 L (1.0-4.8) k/uL Monocytes # 0.1 (0-1.0) k/uL Eosinophils # 0.0 (0-0.7) k/uL Basophils # 0.0 (0-0.2) k/uL Hypochromasia Slight Anisocytosis Moderate PT (9.0-12.0) sec INR (<1.2) APTT (22.0-30.0) sec D-Dimer (<0.60) mg/L FEU Sodium 138 (137-145) mmol/L Potassium 4.2 (3.5-5.1) mmol/L Chloride 108 H (98-107) mmol/L Carbon Dioxide 22 (22-30) mmol/L Anion Gap 8 mmol/L BUN 12 (7-17) mg/dL Creatinine 0.62 (0.52-1.04) mg/dL Est GFR (CKD-EPI)AfAm >90 (>60 ml/min/1.73 sqM) Est GFR (CKD-EPI)NonAf >90 (>60 ml/min/1.73 sqM) Glucose 106 H (74-99) mg/dL Plasma Lactic Acid Chase 1.0 (0.7-2.0) mmol/L Calcium 9.1 (8.4-10.2) mg/dL Phosphorus 4.0 (2.5-4.5) mg/dL Magnesium 1.9 (1.6-2.3) mg/dL Total Bilirubin 0.2 (0.2-1.3) mg/dL AST 31 (14-36) U/L ALT 32 (9-52) U/L Alkaline Phosphatase 82 (38-126) U/L Troponin I (0.000-0.034) ng/mL NT-Pro-B Natriuret Pep pg/mL Total Protein 6.4 (6.3-8.2) g/dL Albumin 3.3 L (3.5-5.0) g/dL Urine Color Urine Appearance (Clear) Urine pH (5.0-8.0) Ur Specific [place] (1.001-1.035) Urine Protein (Negative) Urine Glucose (UA) (Negative) Urine Ketones (Negative) Urine Blood (Negative) Urine Nitrite (Negative) Urine Bilirubin (Negative) Urine Urobilinogen (<2.0) mg/dL Ur Leukocyte Esterase (Negative) Urine RBC (0-5) /hpf Urine WBC (0-5) /hpf Ur Squamous Epith Cells (0-4) /hpf Amorphous Sediment (None) /hpf Hyaline Casts (0-2) /lpf Urine Mucus (None) /hpf 11/05/18 11/05/18 11/05/18 Range/Units 17:40 17:40 17:40 WBC (3.8-10.6) k/uL RBC (3.80-5.40) m/uL Hgb (11.4-16.0) gm/dL Hct (34.0-46.0) % MCV (80.0-100.0) fL MCH (25.0-35.0) pg MCHC (31.0-37.0) g/dL RDW (11.5-15.5) % Plt Count (150-450) k/uL Neutrophils % % Lymphocytes % % Monocytes % % Eosinophils % % Basophils % % Neutrophils # (1.3-7.7) k/uL Lymphocytes # (1.0-4.8) k/uL Monocytes # (0-1.0) k/uL Eosinophils # (0-0.7) k/uL Basophils # (0-0.2) k/uL Hypochromasia Anisocytosis PT 10.1 (9.0-12.0) sec INR 0.9 (<1.2) APTT 22.9 (22.0-30.0) sec D-Dimer (<0.60) mg/L FEU Sodium (137-145) mmol/L Potassium (3.5-5.1) mmol/L Chloride (98-107) mmol/L Carbon Dioxide (22-30) mmol/L Anion Gap mmol/L BUN (7-17) mg/dL Creatinine (0.52-1.04) mg/dL Est GFR (CKD-EPI)AfAm (>60 ml/min/1.73 sqM) Est GFR (CKD-EPI)NonAf (>60 ml/min/1.73 sqM) Glucose (74-99) mg/dL Plasma Lactic Acid Chase (0.7-2.0) mmol/L Calcium (8.4-10.2) mg/dL Phosphorus (2.5-4.5) mg/dL Magnesium (1.6-2.3) mg/dL Total Bilirubin (0.2-1.3) mg/dL AST (14-36) U/L ALT (9-52) U/L Alkaline Phosphatase (38-126) U/L Troponin I <0.012 (0.000-0.034) ng/mL NT-Pro-B Natriuret Pep 99 pg/mL Total Protein (6.3-8.2) g/dL Albumin (3.5-5.0) g/dL Urine Color Urine Appearance (Clear) Urine pH (5.0-8.0) Ur Specific [place] (1.001-1.035) Urine Protein (Negative) Urine Glucose (UA) (Negative) Urine Ketones (Negative) Urine Blood (Negative) Urine Nitrite (Negative) Urine Bilirubin (Negative) Urine Urobilinogen (<2.0) mg/dL Ur Leukocyte Esterase (Negative) Urine RBC (0-5) /hpf Urine WBC (0-5) /hpf Ur Squamous Epith Cells (0-4) /hpf Amorphous Sediment (None) /hpf Hyaline Casts (0-2) /lpf Urine Mucus (None) /hpf 11/05/18 11/05/18 11/05/18 Range/Units 17:40 17:44 19:27 WBC (3.8-10.6) k/uL RBC (3.80-5.40) m/uL Hgb (11.4-16.0) gm/dL Hct (34.0-46.0) % MCV (80.0-100.0) fL MCH (25.0-35.0) pg MCHC (31.0-37.0) g/dL RDW (11.5-15.5) % Plt Count (150-450) k/uL Neutrophils % % Lymphocytes % % Monocytes % % Eosinophils % % Basophils % % Neutrophils # (1.3-7.7) k/uL Lymphocytes # (1.0-4.8) k/uL Monocytes # (0-1.0) k/uL Eosinophils # (0-0.7) k/uL Basophils # (0-0.2) k/uL Hypochromasia Anisocytosis PT (9.0-12.0) sec INR (<1.2) APTT (22.0-30.0) sec D-Dimer 1.39 H (<0.60) mg/L FEU Sodium (137-145) mmol/L Potassium (3.5-5.1) mmol/L Chloride (98-107) mmol/L Carbon Dioxide (22-30) mmol/L Anion Gap mmol/L BUN (7-17) mg/dL Creatinine (0.52-1.04) mg/dL Est GFR (CKD-EPI)AfAm (>60 ml/min/1.73 sqM) Est GFR (CKD-EPI)NonAf (>60 ml/min/1.73 sqM) Glucose (74-99) mg/dL Plasma Lactic Acid Chase (0.7-2.0) mmol/L Calcium (8.4-10.2) mg/dL Phosphorus 3.9 (2.5-4.5) mg/dL Magnesium 1.9 (1.6-2.3) mg/dL Total Bilirubin (0.2-1.3) mg/dL AST (14-36) U/L ALT (9-52) U/L Alkaline Phosphatase (38-126) U/L Troponin I (0.000-0.034) ng/mL NT-Pro-B Natriuret Pep pg/mL Total Protein (6.3-8.2) g/dL Albumin (3.5-5.0) g/dL Urine Color Yellow Urine Appearance Cloudy H (Clear) Urine pH 7.0 (5.0-8.0) Ur Specific [place] 1.013 (1.001-1.035) Urine Protein Negative (Negative) Urine Glucose (UA) Negative (Negative) Urine Ketones Negative (Negative) Urine Blood Negative (Negative) Urine Nitrite Negative (Negative) Urine Bilirubin Negative (Negative) Urine Urobilinogen <2.0 (<2.0) mg/dL Ur Leukocyte Esterase Small H (Negative) Urine RBC <1 (0-5) /hpf Urine WBC 9 H (0-5) /hpf Ur Squamous Epith Cells 5 H (0-4) /hpf Amorphous Sediment Occasional H (None) /hpf Hyaline Casts 1 (0-2) /lpf Urine Mucus Occasional H (None) /hpf - Radiology Data Radiology results: report reviewed (Chest x-rays negative for acute disease), image reviewed Disposition Clinical Impression: Tachycardia, Dehydration, Anemia, Fever, unknown origin, Metastatic lung cancer (metastasis from lung to other site) Disposition: ADMITTED IP TO THIS HOSP Condition: Fair Is patient prescribed a controlled substance at d/c from ED?: No Referrals: Latisha Ziegler MD [Primary Care Provider] - 1-2 days
[2018-11-05 18:04] LABS: ALT 32 U/L (9-52); AST 31 U/L (14-36); African American GFR (CKD) >90 (>60 ml/min/1.73 sqM); Albumin 3.3 g/dL (3.5-5.0); Alkaline Phosphatase 82 U/L (38-126); Anion Gap 8 mmol/L; Blood Urea Nitrogen 12 mg/dL (7-17); Calcium 9.1 mg/dL (8.4-10.2); Carbon Dioxide 22 mmol/L (22-30); Chloride 108 mmol/L (98-107); Glucose 106 mg/dL (74-99); Magnesium 1.9 mg/dL (1.6-2.3); Potassium 4.2 mmol/L (3.5-5.1); Sodium 138 mmol/L (137-145); Total Bilirubin 0.2 mg/dL (0.2-1.3); Total Protein 6.4 g/dL (6.3-8.2)
[2018-11-05] MEDS ORDERED: IBUPROFEN 800 MG TAB PO STA (18:05)
[2018-11-05] MEDS ORDERED: ACETAMINOPHEN TAB 500 MG TAB PO STA (18:05)
[2018-11-05 18:15] LABS: Anisocytosis Moderate; Basophils % (A) 0 %; Eosinophils % (A) 2 %; HCT 23.8 % (34.0-46.0); HGB 7.7 gm/dL (11.4-16.0); Hypochromasia Slight; Lymphocytes # (A) 0.4 k/uL (1.0-4.8); Lymphocytes % (A) 16 %; MCH 28.1 pg (25.0-35.0); MCHC 32.5 g/dL (31.0-37.0); MCV 86.2 fL (80.0-100.0); Mean Platelet Volume 8.2; Monocytes # (A) 0.1 k/uL (0-1.0); Monocytes % (A) 2 %; Neutrophils # (A) 2.1 k/uL (1.3-7.7); Neutrophils % (A) 77 %; RBC 2.75 m/uL (3.80-5.40); RDW 22.1 % (11.5-15.5); WBC 2.7 k/uL (3.8-10.6)
[2018-11-05 18:21] LABS: Platelet Count 263 k/uL (150-450)
[2018-11-05 18:26] LABS: INR 0.9 (<1.2); Partial Thromboplastin Time 22.9 sec (22.0-30.0); Prothrombin Time 10.1 sec (9.0-12.0)
[2018-11-05 18:56] LABS: Magnesium 1.9 mg/dL (1.6-2.3); Phosphorus 3.9 mg/dL (2.5-4.5)
[2018-11-05] MEDS ORDERED: HYDROmorphone 1 MG/ML 1 ML SYRINGE IVP STA (19:38)
--- NOTE | 2018-11-05 20:05 | XR ---
EXAMINATION: XR chest 2V DATE AND TIME: 11/05/2018 7:07 PM CLINICAL INDICATION: PHH; Pain TECHNIQUE: Departmental protocol COMPARISON: 10/20/2018 FINDINGS: Port-A-Cath unchanged. The lungs are clear. The pleural spaces are negative. Elevated right hemidiaphragm unchanged. The cardiac silhouette is not enlarged. The remainder of the mediastinal silhouette is unremarkable. The skeletal structures and soft tissues are negative for acute findings. IMPRESSION: NO ACUTE PROCESS.
[2018-11-05 20:19] LABS: Amorphous Sediment,Urine Occasional /hpf; Appearance,Urine Cloudy (Clear); Bilirubin,Urine Negative (Negative); Blood,Urine Negative (Negative); Color,Urine Yellow; Glucose,Urine (UA) Negative (Negative); Hyaline Casts,Urine 1 /lpf (0-2); Ketones,Urine Negative (Negative); Leukocyte Esterase,Urine Small (Negative); Mucus,Urine Occasional /hpf; Nitrite,Urine Negative (Negative); Protein,Urine Negative (Negative); RBC,Urine <1 /hpf (0-5); Specific Gravity,Urine 1.013 (1.001-1.035); Squamous Epithelial Cell,Urine 5 /hpf (0-4); Urobilinogen,Urine <2.0 mg/dL (<2.0); WBC,Urine 9 /hpf (0-5)
[2018-11-05] MEDS ORDERED: VANCOMYCIN IV PER PHARMACY 1 EACH MISC MISCELLANE PRN (20:42)
[2018-11-05] MEDS ORDERED: CEFEPIME 2 GM in SODIUM CHLORIDE 0.9% 100 ML IVPB STA (20:43)
[2018-11-05] MEDS ORDERED: VANCOMYCIN 1,250 MG in SODIUM CHLORIDE 0.9% 250 ML IVPB STA (20:57)
--- NOTE | 2018-11-05 22:06 | US ---
EXAMINATION TYPE: US venous doppler duplex LE DATE OF EXAM: 11/05/2018 9:48 PM COMPARISON: NONE CLINICAL HISTORY: Pain. Pain per order. Pt on blood thinners. SIDE PERFORMED: Bilateral TECHNIQUE: The lower extremity deep venous system is examined utilizing real time linear array sonog mercedes with graded compression, doppler sonography and color-flow sonography. VESSELS IMAGED: External Iliac Vein (EIV) Common Femoral Vein Deep Femoral Vein Greater Saphenous Vein * Femoral Vein Popliteal Vein Small Saphenous Vein * Proximal Calf Veins (* superficial vessels) FINDINGS: Examination of the right lower extremity and left lower extremity is negative for direct or indirect deep venous findings to correlate with a diagnosis of thrombus. IMPRESSION: Negative for DVT, bilateral lower extremities.
--- NOTE | 2018-11-05 22:30 | CT ---
EXAM: CT Angiography Chest With Intravenous Contrast CLINICAL HISTORY: Difficulty breathing ITS.REASON CT Reason: Pain TECHNIQUE: Axial computed tomographic angiography images of the chest with intravenous contrast using pulmonary embolism protocol. CTDI is 6.7 mGy and DLP is 247.2 mGy-cm. This CT exam was performed using one or more of the following dose reduction techniques: automated exposure control, adjustment of the mA and/or kV according to patient size, and/or use of iterative reconstruction technique. MIP reconstructed images were created and reviewed. COMPARISON: No relevant prior studies available. FINDINGS: Pulmonary arteries: No large central PE. Questionable linear low attenuation in the left lower lobe (image [id number]), potentially artifact. Enlarged pulmonary artery suggestive of pulmonary hypertension. Aorta: No aortic aneurysm or dissection. Lungs: Emphysematous changes. Nonspecific patchy groundglass lung densities. Irregular nodule at the right lung base measuring up to 13 mm, cannot exclude malignant etiology. Additional small nodules. Mild bilateral atelectasis/scarring. Postsurgical changes noted. Pleural space: No significant effusion. No pneumothorax. Heart: Cardiomegaly. Mediastinum: Mild esophageal wall thickening. Bones/joints: Sclerotic lesion in the T7 vertebral body. Soft tissues: Subcutaneous nodule in the left anterior chest. Subcutaneous stranding in the anterior projection small. Lymph nodes: Small mediastinal and hilar lymph nodes. Adrenals: Bilateral adrenal nodules measuring up to 18 mm on the left. Stomach and bowel: Mild colonic wall thickening or underdistention. Tubes, lines and devices: Right chest port catheter noted. IMPRESSION: 1. No evidence of aortic dissection or large central PE. Questionable linear filling defect versus artifact in the left lower lobe. Recommend correlation with clinical suspicion regarding possibility of small PE. 2. Emphysematous changes. Nonspecific patchy groundglass lung densities. Irregular nodule at the right lung base. Correlate with history of malignancy and prior imaging if available. Otherwise, recommend followup CT in 3 months or consider PET/CT or additional workup. 3. Bilateral adrenal nodules. 4. Sclerotic lesion in the T7 vertebral body. 5. Additional findings, as above. <MYCVCSECTION> [employer] 11/05/18 22:43 Verify Receipt Verified receipt with AJ Mack on 11/05 22:42 (-04:00)
[2018-11-05] MEDS: HYDROmorphone 1 MG/ML 1 ML SYRINGE IVP PRN (23:29)
[2018-11-05] MEDS: SODIUM CHLORIDE 0.9% 1,000 ML IV SCH (23:56)
[2018-11-06] MEDS ORDERED: BISACODYL 5 MG TABLET.DR PO PRN (01:25)
[2018-11-06] MEDS ORDERED: ONDANSETRON ODT 4 MG TAB PO PRN (01:25)
[2018-11-06] MEDS ORDERED: SENNOSIDES 8.6 MG TAB PO PRN (01:25)
[2018-11-06] MEDS ORDERED: oxyCODONE-APAP 10-325MG 1 EACH TAB PO PRN (01:25)
[2018-11-06] MEDS ORDERED: ACETAMINOPHEN TAB 325 MG TAB PO PRN (01:25)
[2018-11-06] MEDS ORDERED: ALPRAZolam 0.25 MG TAB PO PRN (01:27)
[2018-11-06] MEDS ORDERED: TEMAZEPAM 15 MG CAP PO PRN (01:27)
[2018-11-06] MEDS ORDERED: HYDROmorphone 0.5 MG/0.5 ML SYRINGE IVP PRN (01:27)
[2018-11-06] MEDS: SODIUM CHLORIDE 0.9% 1,000 ML IV SCH ×3 (04:51→16:14)
[2018-11-06] MEDS: LORATADINE 10 MG TAB PO SCH (08:01)
[2018-11-06] MEDS: PANTOPRAZOLE 40 MG TABLET PO SCH (08:01)
[2018-11-06] MEDS: SENNOSIDES-DOCUSATE SODIUM 1 EACH TAB PO SCH ×2 (08:01→21:05)
[2018-11-06] MEDS: MAGNESIUM OXIDE 400 MG TAB PO SCH ×3 (08:02→21:03)
[2018-11-06] MEDS: METOCLOPRAMIDE 5 MG TAB PO SCH ×4 (08:02→21:59)
[2018-11-06] MEDS: FOLIC ACID 1 MG TAB PO SCH (08:02)
[2018-11-06] MEDS: MEGESTROL 400 MG/10 ML CUP PO SCH (08:03)
[2018-11-06] MEDS: FLUTICASONE 50MCG/SPRAY NASAL 16GM EA NOSTRIL SCH (08:03)
[2018-11-06] MEDS: LIDOCAINE VISCOUS 2% 15 ML CUP MUCOUS MEM SCH ×2 (08:04→21:04)
[2018-11-06] MEDS: HYDROmorphone 1 MG/ML 1 ML SYRINGE IVP PRN ×4 (08:04→20:02)
[2018-11-06] MEDS: NYSTATIN 100,000 UNIT/ML SUSP 500,000 UNIT/5 ML CUP PO SCH ×2 (08:07→21:04)
[2018-11-06] MEDS: POLYETHYLENE GLYCOL 3350 17 GM POWD.PACK PO SCH (08:13)
--- NOTE | 2018-11-06 08:17 | HP ---
HISTORY AND PHYSICAL DATE OF SERVICE: 11/05/2018 CHIEF COMPLAINTS: Weakness and tachycardia. HISTORY OF PRESENT ILLNESS: This 52-year-old woman with a past medical history of multiple medical problems including lung cancer with multiple mets is receiving chemotherapy. The patient had possibly previously gastroenteritis, possibly related to chemotherapy or radiation induced. Most recently a few weeks ago, the patient was admitted to [facility] with complaints of gastroenteritis and dehydration. Patient improved significantly and patient went home. Patient was doing chemotherapy with Dr. Fatima. Currently the patient is complaining of tiredness and weakness and some fever and the patient was taken to [facility] and admitted for further evaluation and treatment. Possibly sepsis was considered and the patient has some leukopenia and anemia also. Platelets are normal. There is no history of headache, loss of consciousness, seizures. UA showed some minimal abnormalities. The patient is followed by Dr. Latisha Ziegler in the outpatient setting. PAST MEDICAL HISTORY: History of lung cancer with mets, history of gastroenteritis recurrent, GERD, hypertension, hyperlipidemia, history of myocardial infarction, brain aneurysm, history of lung cancer, history of anxiety and panic disorder. MEDICATIONS: Medications prior to admission include home medications are: 1. Oxycodone, that is Percocet, one tablet p.o. q.i.d. p.r.n. 2. Duragesic 12 mcg q.72 hours. 3. Senokot-S 2 tablets p.o. b.i.d. 4. Senna 8.6 mg p.o. q.h.s. p.r.n. 5. MiraLAX 17 grams daily. 6. Protonix 40 mg daily. 7. Zofran 4 mg q.8 p.r.n. 8. Mycostatin 3 million units t.i.d. 9. Singulair 10 mg q.h.s. 10.Reglan 5 mg . 11.Megace 400 mg p.o. daily. 12.Magnesium oxide 400 mg p.o. t.i.d. 13.Claritin 10 mg p.o. daily. 14.Xylocaine 30 mL p.o. t.i.d. 15.Folic acid 1 mg p.o. daily. 16.Flonase 2 sprays daily. 17.Colace 100 mg b.i.d. p.r.n. 18.Dulcolax 10 mg daily p.r.n. 19.Lipitor 80 mg q.h.s. 20.Tylenol 650 q.6 p.r.n. ALLERGIES: Allergies are PENICILLIN. FAMILY HISTORY: History of cancer in the family. SOCIAL HISTORY: Previous history of smoking. No history of alcohol intake. REVIEW OF SYSTEMS: ENT: No diminished hearing or diminished vision. CARDIOVASCULAR SYSTEM: No angina. RESPIRATORY SYSTEM: As mentioned earlier. GI: No nausea. : No dysuria. NERVOUS SYSTEM: No numbness or weakness. ALLERGY/IMMUNOLOGY: No asthma or hay fever. MUSCULOSKELETAL: As mentioned earlier. HEMATOLOGY/ONCOLOGY: No history of anemia. ENDOCRINE: As mentioned earlier. CONSTITUTIONAL: As mentioned earlier. DERMATOLOGY: Negative. RHEUMATOLOGY: Negative. PSYCHIATRY: As mentioned earlier. PHYSICAL EXAMINATION: The patient is alert and oriented x3. Pulse is 101, blood pressure 102/69, respiration 18, temperature 98.6, pulse ox 99% on room air. HEENT: Conjunctivae normal. Oral mucosa moist. NECK: No jugular venous distention. No carotid bruit. No lymph node enlargement. CARDIOVASCULAR: S1, S2 muffled. Tachycardiac. No S3, no S4. RESPIRATORY: Breath sounds diminished at the bases. A few scattered rhonchi. No crackles. ABDOMEN: Soft, nontender. No mass palpable. LEGS: No edema, no swelling. NERVOUS SYSTEM: Higher functions as mentioned earlier, moves all 4 limbs. No focal motor deficits. LYMPHATICS: No lymphadenopathy of the neck, axillae or groin. SKIN: No ulcer, rash or bleeding. JOINTS: No active deforming arthropathy. LABS: WBC 2.7, hemoglobin 7.7. Sodium 138, potassium 4.2. Albumin is 3.3. Otherwise venous Doppler negative for DVT. The chest CTA, no evidence of aortic dissection or large PE, emphysematous changes, bilateral adrenal nodules. Chest x-ray which was reviewed personally by me showed no acute abnormality. ASSESSMENT: 1. Tachycardia and weakness for evaluation, rule out sepsis. 2. Lung cancer with multiple metastases to the peritoneum as well as causing possible genitourinary bleeding, status post radiation therapy and on chemotherapy. 3. History of recurrent gastroenteritis. 4. Anemia secondary to chemotherapy. 5. Ovarian tumor possibly indicating metastasis from the lungs. 6. History of pulmonary embolism. 7. History of gastroesophageal reflux disease. 8. Hypertension. 9. Hyperlipidemia. 10.History of myocardial infarction. 11.History of brain aneurysm. 12.History of anxiety. 13.History of panic disorder. 14.History of nicotine dependence. 15.FULL CODE. RECOMMENDATIONS AND DISCUSSION: This 52-year-old woman who presented with multiple complex medical issues, will monitor the patient closely. Continue the current medications. Continue symptomatic treatment. Will initiate broad-spectrum IV antibiotics. The patient is started on cefepime and vancomycin. Obtain the cultures. Oncology consultations otherwise resume the home medications. Guarded prognosis because of multiple complex medical issues. Further recommendations to follow. A copy of dictation forwarded to Dr. Latisha Ziegler who is the primary physician. MMSARAY / ISISN: [id number] / ATIF
[2018-11-06] MEDS ORDERED: DOCUSATE 100 MG CAP PO PRN (09:00)
[2018-11-06 09:30] LABS: African American GFR (CKD) >90 (>60 ml/min/1.73 sqM); Anion Gap 5 mmol/L; Blood Urea Nitrogen 8 mg/dL (7-17); Calcium 7.3 mg/dL (8.4-10.2); Carbon Dioxide 18 mmol/L (22-30); Chloride 117 mmol/L (98-107); Glucose 87 mg/dL (74-99); Potassium 3.6 mmol/L (3.5-5.1); Sodium 140 mmol/L (137-145)
[2018-11-06 09:55] LABS: Anisocytosis Moderate; Basophils % (A) 0 %; Eosinophils % (A) 2 %; Hypochromasia Moderate; Lymphocytes # (A) 0.3 k/uL (1.0-4.8); Lymphocytes % (A) 16 %; MCH 27.7 pg (25.0-35.0); MCHC 31.2 g/dL (31.0-37.0); Mean Platelet Volume 7.8; Monocytes % (A) 2 %; Neutrophils # (A) 1.3 k/uL (1.3-7.7); Neutrophils % (A) 76 %; Platelet Count 216 k/uL (150-450); RBC 2.09 m/uL (3.80-5.40); RDW 21.7 % (11.5-15.5); WBC 1.7 k/uL (3.8-10.6)
[2018-11-06 09:59] LABS: HCT 18.6 % (34.0-46.0); HGB 5.8 gm/dL (11.4-16.0)
[2018-11-06] MEDS ORDERED: VANCOMYCIN 1,250 MG in SODIUM CHLORIDE 0.9% 250 ML IVPB SCH (11:00)
[2018-11-06] MEDS: CEFEPIME 1 GM in SODIUM CHLORIDE 0.9% 50 ML IVPB SCH ×3 (11:39→21:05)
[2018-11-06] MEDS ORDERED: LORazepam 1 MG TAB PO PRN (15:41)
--- NOTE | 2018-11-06 16:02 | P.CONS ---
History of Present Illness - Reason for Consult Consult date: 11/06/18 Metastatic NSCLC on treatment Requesting physician: Tamanna Denise - Chief Complaint weakness - History of Present Illness Ms. Krishna is a very pleasant 52-year-old -[place] female pt of Dr. Fatima who is currently on carboplatin, alimta and Keytruda, 4th treatment last Monday, with dose reduction (4rd cycle of chemo 3rd of immunotherapy). She states she feels better overall in reagrds to chemo side effects (appetite good, no nausea) but, she had rather severe fatigue, progressive over the last 2 days, she then had fever, she tried tylenol but the fever persisted. She is doing ok since admit, she is going to get a unit of blood, for Hgb 5.9, plt and WBC adequate, she has thick sputum she is trying to expectorate and she is asking for some mucinex, denies any other c/o on a 14 point ROS. Malignancy Hx: Presented 07/28 with a right lung mass, lobectomy in 08/28, adenocarcinoma of the lung, did not f/u to get recommended chemotherapy. F/U was intermittent, no evidence of recurrent disease until 07/31. 05/01 she was diagnosed with an early-stage laryngeal cancer that was treated with definitive radiation. 07/31 she presented with pelvic mass, liver lesions, as well as omental masses, cytology and liver biopsy c/w lung adenocarcinoma, PD-1 strongly positive. Initiation of treatment was delayed, due to admission for influenza, during which she was found to have a PE, started on anticoagulation, complicated with vaginal bleeding which eventually subsided and she was resumed. She has been admitted after cycles 2 and 3, dose reduction for cycle 4. Review of Systems 14 point review of systems is negative except as stated in history of present illness Past Medical History Past Medical History: Cancer, GERD/Reflux, Hyperlipidemia, Hypertension, Myocardial Infarction (NE) Additional Past Medical History / Comment(s): BRAIN ANEURSYM, NE 2012, LUNG CA diagnosed 2014, CARPAL TUNNEL RIGHT WRIST, throat CA dx apr 2018 Last Myocardial Infarction Date:: 04/30/2013 History of Any Multi-Drug Resistant Organisms: None Reported Past Surgical History: Heart Catheterization, Orthopedic Surgery, Tubal Ligation, Uterine Ablation Additional Past Surgical History / Comment(s): ANGIOPLASTY FOR BRAIN ANEURSYM, CARPEL TUNNEL RIGHT WRIST , and laparoscopy, PARTIAL RIGHT LUNG REMOVAL ,PTCA, Past Anesthesia/Blood Transfusion Reactions: No Reported Reaction Past Psychological History: Anxiety, Panic Disorder Smoking Status: Former smoker Past Alcohol Use History: None Reported Additional Past Alcohol Use History / Comment(s): Patient was a smoker and quit in May 2018. She denies any marijuana, illicit drug use or alcohol use. Her daughter is living with her. She is on disability. Past Drug Use History: None Reported - Past Family History Mother Family Medical History: Cancer Father Family Medical History: Cancer Medications and Allergies Home Medications Medication Instructions Recorded Confirmed Type Folic Acid 1 mg PO DAILY #30 tab 08/24/18 11/05/18 Rx Pantoprazole Sodium [Protonix] 40 mg PO DAILY #30 tablet. 08/24/18 11/05/18 Rx Ondansetron [Zofran ODT] 4 mg PO Q8HR PRN 08/30/18 11/05/18 History Acetaminophen Tab [Tylenol] 650 mg PO Q6HR PRN tab 09/01/18 11/05/18 Rx Atorvastatin [Lipitor] 80 mg PO HS tab 09/01/18 11/05/18 Rx Megestrol [Megace] 400 mg PO DAILY #30 cup 09/01/18 11/05/18 Rx Docusate [Colace] 100 mg PO BID PRN #60 capsule 09/09/18 11/05/18 Rx Sennosides [Senna] 8.6 mg PO HS PRN #60 tablet 09/09/18 11/05/18 Rx Lidocaine Viscous [Xylocaine 30 ml PO TID #300 ml 09/25/18 11/05/18 Rx Viscous 2%] Nystatin 100,000 Unit/ml Susp 3,000,000 unit PO TID #30 cup 09/25/18 11/05/18 Rx [Mycostatin Oral Susp] Bisacodyl [Dulcolax] 10 mg PO DAILY PRN #7 tablet. 10/23/18 11/05/18 Rx Metoclopramide [Reglan] 5 mg PO ACHS #15 tab 10/23/18 11/05/18 Rx Fluticasone Nasal [place] [Flonase 2 spray EA NOSTRIL DAILY #1 bottle 10/26/18 11/05/18 Rx Nasal [place]] Loratadine [Claritin] 10 mg PO DAILY #30 tab 10/26/18 11/05/18 Rx Magnesium Oxide [Mag-Ox] 400 mg PO TID #90 tab 10/26/18 11/05/18 Rx Montelukast [Singulair] 10 mg PO HS #30 tab 10/26/18 11/05/18 Rx Polyethylene Glycol 3350 [Miralax] 17 gm PO DAILY 30 Days #30 packet 10/26/18 11/05/18 Rx fentaNYL 12MCG/HR PATCH [Duragesic 1 patch TRANSDERM Q72H #10 patch 10/26/18 11/05/18 Rx 12MCG/HR] oxyCODONE-APAP 10-325MG [Percocet 1 tab PO QID PRN 3 Days #12 tab 10/26/18 11/05/18 Rx 10-325 mg] Sennosides-Docusate Sodium 2 tab PO BID 11/05/18 11/05/18 History [Senokot-S] Allergies Allergy/AdvReac Type Severity Reaction Status Date / Time Penicillins Allergy Unknown Verified 11/05/18 17:51 Childhood Physical Exam Vitals: Vital Signs Temp Pulse Pulse Resp BP BP Pulse Ox 11/06/18 11:21 98.5 F 89 18 105/60 100 11/06/18 05:26 98.6 F 98 99/69 100 11/06/18 00:00 16 11/05/18 23:00 98.6 F 111 H 16 121/69 100 11/05/18 22:00 92 18 103/69 98 11/05/18 21:00 101 H 18 102/69 99 11/05/18 20:30 102 H 104/70 98 11/05/18 20:00 109 H 117/77 11/05/18 19:30 111 H 134/85 11/05/18 18:30 112 H 108/81 99 11/05/18 18:00 126 H 118/76 99 11/05/18 17:30 120 H 124/90 99 11/05/18 17:09 99.5 F 121 H 20 124/90 100 Intake and Output 11/06/18 11/06/18 11/06/18 06:59 14:59 22:59 Intake Total 820 0 Balance 820 0 Intake: Oral 820 Blood Product 0 Rc As-1 Unit 0 [id number] Other: Voiding Method Toilet Toilet # Voids 1 - Constitutional General appearance: average body habitus, cooperative, no acute distress - EENT Eyes: anicteric sclerae, EOMI ENT: hearing grossly normal, normal oropharynx - Neck Neck: no lymphadenopathy - Respiratory Respiratory: bilateral: CTA - Cardiovascular Rhythm: regular Heart sounds: normal: S1, S2 Abnormal Heart Sounds: no systolic murmur, no diastolic murmur, no rub, no S3 Gallop, no S4 Gallop, no click, no other leg Peripheral Edema: bilateral: None - Gastrointestinal General gastrointestinal: no absent bowel sounds, no decreased bowel sounds, no distended, no hepatomegaly, no hyperactive bowel sounds, normal bowel sounds, no organomegaly, no rigid, no scaphoid, soft, no splenomegaly, no tenderness, no umbilical hernia, no ventral hernia - Integumentary Integumentary: normal turgor - Neurologic Neurologic: CNII-XII intact - Musculoskeletal Musculoskeletal: strength equal bilaterally - Psychiatric Psychiatric: A&O x's 3, appropriate affect, intact judgment & insight Results CBC & Chem 7: 11/06/18 08:32 11/06/18 08:32 Labs: Abnormal Lab Results - Last 24 Hours (Table) 11/05/18 11/05/18 11/05/18 Range/Units 17:40 17:40 17:44 WBC 2.7 L (3.8-10.6) k/uL RBC 2.75 L (3.80-5.40) m/uL Hgb 7.7 L (11.4-16.0) gm/dL Hct 23.8 L (34.0-46.0) % RDW 22.1 H (11.5-15.5) % Lymphocytes # 0.4 L (1.0-4.8) k/uL D-Dimer 1.39 H (<0.60) mg/L FEU Chloride 108 H (98-107) mmol/L Carbon Dioxide (22-30) mmol/L Glucose 106 H (74-99) mg/dL Calcium (8.4-10.2) mg/dL Albumin 3.3 L (3.5-5.0) g/dL Urine Appearance (Clear) Ur Leukocyte Esterase (Negative) Urine WBC (0-5) /hpf Ur Squamous Epith Cells (0-4) /hpf Amorphous Sediment (None) /hpf Urine Mucus (None) /hpf Crossmatch 11/05/18 11/06/18 11/06/18 Range/Units 19:27 08:32 08:32 WBC 1.7 L (3.8-10.6) k/uL RBC 2.09 L (3.80-5.40) m/uL Hgb 5.8 L* D (11.4-16.0) gm/dL Hct 18.6 L* (34.0-46.0) % RDW 21.7 H (11.5-15.5) % Lymphocytes # 0.3 L (1.0-4.8) k/uL D-Dimer (<0.60) mg/L FEU Chloride 117 H (98-107) mmol/L Carbon Dioxide 18 L (22-30) mmol/L Glucose (74-99) mg/dL Calcium 7.3 L (8.4-10.2) mg/dL Albumin (3.5-5.0) g/dL Urine Appearance Cloudy H (Clear) Ur Leukocyte Esterase Small H (Negative) Urine WBC 9 H (0-5) /hpf Ur Squamous Epith Cells 5 H (0-4) /hpf Amorphous Sediment Occasional H (None) /hpf Urine Mucus Occasional H (None) /hpf Crossmatch 11/06/18 Range/Units 11:20 WBC (3.8-10.6) k/uL RBC (3.80-5.40) m/uL Hgb (11.4-16.0) gm/dL Hct (34.0-46.0) % RDW (11.5-15.5) % Lymphocytes # (1.0-4.8) k/uL D-Dimer (<0.60) mg/L FEU Chloride (98-107) mmol/L Carbon Dioxide (22-30) mmol/L Glucose (74-99) mg/dL Calcium (8.4-10.2) mg/dL Albumin (3.5-5.0) g/dL Urine Appearance (Clear) Ur Leukocyte Esterase (Negative) Urine WBC (0-5) /hpf Ur Squamous Epith Cells (0-4) /hpf Amorphous Sediment (None) /hpf Urine Mucus (None) /hpf Crossmatch See Detail Microbiology - Last 24 Hours (Table) 11/05/18 19:27 Urine Culture - Preliminary Urine,Voided Chest x-ray: report reviewed CT scan - chest: report reviewed Venous US: report reviewed Assessment and Plan (1) Fever, unknown origin Narrative/Plan: [place] cultures pending, empiric antibiotics ordered. Current Visit: Yes Status: Acute Priority: High Code(s): R50.9 - FEVER, UNSPECIFIED SNOMED Code(s): 3582351 (2) Metastatic lung cancer (metastasis from lung to other site) Narrative/Plan: Patient is status post 4 cycles of chemotherapy, 3 cycles of immunotherapy. She has required hospitalization after 3/4 cycles. Thankfully with dose reduction, her complaints are less intense/severe. I do not anticipate an additional decrease in chemotherapy, I also believe that 4 cycle of chemotherapy is the regimen with ongoing immunotherapy, I will clarify with Physician. Anticipate patient recovery from her current condition so, she will continue with treatment on time. Current Visit: Yes Status: Chronic Priority: Medium Code(s): C34.90 - MALIGNANT NEOPLASM OF UNSP PART OF UNSP BRONCHUS OR LUNG SNOMED Code(s): 23610413 (3) Pancytopenia due to antineoplastic chemotherapy Narrative/Plan: 1 unit of packed red blood cells for hemoglobin of 5.9. Transfuse for hemoglobin less than 7 or if symptomatic. WBCs/ANC adequate at this time, no GCSF Platelets currently are normal at 263,000, no acute intervention CBC daily while inpatient, rebecca will be later this week/weekend Current Visit: Yes Status: Chronic Priority: Medium Code(s): D61.810 - ANTINEOPLASTIC CHEMOTHERAPY INDUCED PANCYTOPENIA; T45.1X5A - ADVERSE EFFECT OF ANTINEOPLASTIC AND IMMUNOSUP DRUGS, INIT SNOMED Code(s): 501661807910716 (4) Pulmonary emboli Narrative/Plan: Bilateral lower extremity Doppler report reviewed, negative for DVT. CT of the chest report reviewed. Patient does have a history of PE, does not sound like there is an acute component at this time. Patient will continue on Eliquis at this time. Current Visit: No Status: Chronic Priority: Medium Code(s): I26.99 - OTHER PULMONARY EMBOLISM WITHOUT ACUTE COR PULMONALE SNOMED Code(s): 19811339
--- NOTE | 2018-11-06 17:36 | PN ---
PROGRESS NOTE DATE OF SERVICE: 11/06/2018 This 52-year-old woman who was admitted with severe weakness and tachycardia also had a fever. The patient had possibly neutropenic sepsis after chemotherapy. Patient was started on broad-spectrum IV antibiotics. Patient is feeling much better at this time. The cultures are negative at this time. PHYSICAL EXAMINATION: Alert and oriented x3. The pulse is 89, blood pressure 105/60, respiration 18, temperature 98.5, pulse ox 100% on room air. HEENT: Conjunctivae normal. NECK: No jugular venous distention. CARDIOVASCULAR SYSTEM: S1, S2 muffled. RESPIRATORY SYSTEM: Breath sounds diminished at the bases. No rhonchi. No crackles. ABDOMEN: Soft, non-tender. No mass palpable. LEGS: No edema. No swelling. NERVOUS SYSTEM: Higher functions as mentioned earlier. Moves all 4 limbs. No focal motor or sensory deficit. LYMPHATICS: No lymph node palpable in neck, axillae or groin. SKIN: No ulcer, rash, bleeding. JOINTS: No active deforming arthropathy. LABS: WBC 1.7, hemoglobin 5.8, sodium 140, potassium 3.6. UA noted. ASSESSMENT: 1. Fever, tachycardia and weakness; possibly neutropenic sepsis. 2. Lung cancer with multiple metastases to peritoneum as well as causing possibly genitourinary bleeding, status post radiation therapy and chemotherapy. 3. History of recurrent gastroenteritis secondary to radiation therapy or chemotherapy. 4. Anemia secondary to chemotherapy and malignancy. 5. Ovarian tumor, possibly indicating metastasis from the lungs. 6. History of pulmonary embolus. 7. History of gastroesophageal reflux disease. 8. Hypertension. 9. Hyperlipidemia. 10.History of myocardial infarction. 11.History of brain aneurysm. 12.History of anxiety. 13.History of panic disorder. 14.History of nicotine dependence. 15.FULL CODE. RECOMMENDATIONS AND DISCUSSION: I recommend to continue current medications, continue with the monitoring, symptomatic treatment. Otherwise at this time I recommend broad-spectrum IV antibiotics. Follow the cultures. Monitor closely. Closely follow with Hematology/Oncology. The patient is on a combination of cefepime and vancomycin at this time. Continue the rest of the medications. Continue the home medications. Guarded prognosis because of multiple complex medical issues. Further recommendations to follow. MMODL / IJN: [id number] /
[2018-11-06] MEDS: VANCOMYCIN 1,250 MG in SODIUM CHLORIDE 0.9% 250 ML IVPB SCH (19:01)
[2018-11-06] MEDS: MONTELUKAST 10 MG TAB PO SCH (21:03)
[2018-11-06] MEDS: guaiFENesin 600 MG TABLET.ER PO SCH (21:03)
[2018-11-06] MEDS: ATORVASTATIN 80 MG TAB PO SCH (21:05)
[2018-11-07] MEDS: SODIUM CHLORIDE 0.9% 1,000 ML IV SCH ×4 (04:37→18:24)
[2018-11-07] MEDS: VANCOMYCIN 1,250 MG in SODIUM CHLORIDE 0.9% 250 ML IVPB SCH ×3 (04:40→14:05)
[2018-11-07] MEDS: HYDROmorphone 1 MG/ML 1 ML SYRINGE IVP PRN ×5 (05:58→22:57)
[2018-11-07 08:49] LABS: African American GFR (CKD) >90 (>60 ml/min/1.73 sqM); Anion Gap 7 mmol/L; Anisocytosis Slight; Blood Urea Nitrogen 7 mg/dL (7-17); Carbon Dioxide 20 mmol/L (22-30); Chloride 113 mmol/L (98-107); Glucose 90 mg/dL (74-99); HCT 25.9 % (34.0-46.0); Hypochromasia Slight; MCH 27.9 pg (25.0-35.0); MCHC 31.9 g/dL (31.0-37.0); MCV 87.7 fL (80.0-100.0); Mean Platelet Volume 8.4; Platelet Count 263 k/uL (150-450); Potassium 4.2 mmol/L (3.5-5.1); RBC 2.95 m/uL (3.80-5.40); RDW 19.9 % (11.5-15.5); Sodium 140 mmol/L (137-145)
[2018-11-07] MEDS ORDERED: VANCOMYCIN TROUGH DUE 1 EACH MISC MISCELLANE ONE (09:00)
[2018-11-07 09:05] LABS: WBC 1.3 k/uL (3.8-10.6)
[2018-11-07 09:06] LABS: HGB 8.3 gm/dL (11.4-16.0)
[2018-11-07] MEDS: METOCLOPRAMIDE 5 MG TAB PO SCH ×4 (09:45→21:53)
[2018-11-07] MEDS: SENNOSIDES-DOCUSATE SODIUM 1 EACH TAB PO SCH ×2 (09:46→21:54)
[2018-11-07] MEDS: PANTOPRAZOLE 40 MG TABLET PO SCH (09:46)
[2018-11-07] MEDS: guaiFENesin 600 MG TABLET.ER PO SCH ×2 (09:46→21:54)
[2018-11-07] MEDS: LORATADINE 10 MG TAB PO SCH (09:46)
[2018-11-07] MEDS: MAGNESIUM OXIDE 400 MG TAB PO SCH ×3 (09:46→21:53)
[2018-11-07] MEDS: FOLIC ACID 1 MG TAB PO SCH (09:46)
[2018-11-07] MEDS: POLYETHYLENE GLYCOL 3350 17 GM POWD.PACK PO SCH (09:46)
[2018-11-07] MEDS: FLUTICASONE 50MCG/SPRAY NASAL 16GM EA NOSTRIL SCH (09:48)
[2018-11-07] MEDS: NYSTATIN 100,000 UNIT/ML SUSP 500,000 UNIT/5 ML CUP PO SCH ×3 (09:49→21:54)
[2018-11-07] MEDS: LIDOCAINE VISCOUS 2% 15 ML CUP MUCOUS MEM SCH ×3 (09:49→21:54)
[2018-11-07] MEDS: APIXABAN 5 MG TAB PO SCH ×2 (10:13→21:54)
[2018-11-07] MEDS: MEGESTROL 400 MG/10 ML CUP PO SCH (10:13)
[2018-11-07 10:52] LABS: Eosinophils # (M) 0.07 k/uL (0-0.7); Lymphocytes # (M) 0.26 k/uL (1.0-4.8); Monocytes # (M) 0.05 k/uL (0-1.0); Neutrophils # (M) 0.92 k/uL (1.3-7.7); Neutrophils % (M) 71 %; Nucleated Red Blood Cells 0 /100 WBC (0-0); Poikilocytosis (M) Present; Total Cells Counted 100
--- NOTE | 2018-11-07 15:23 | PN ---
PROGRESS NOTE DATE OF SERVICE: 11/07/2018 This 52-year-old woman was admitted with fever, tachycardia, also had possibly neutropenic sepsis. Patient on broad IV antibiotics. Cultures are negative so far. No chest pain. No palpitations. No fever. PHYSICAL EXAM: Alert and oriented x3. Pulse is 96, blood pressure 130/60, respiration 18, temperature 98 degrees, pulse ox 100% on room air. HEENT: Conjunctivae normal. NECK: No jugular venous distension. No lymph node enlargement. CARDIOVASCULAR SYSTEM: S1, S2, muffled. RESPIRATORY: Breath sounds diminished at the bases, a few scattered rhonchi, no crackles. ABDOMEN: Soft, nontender. LEGS: No edema, no swelling. NERVOUS SYSTEM: No focal deficits. LABS: WBC is 1.3, hemoglobin is 8.3. Labs are noted. ASSESSMENT: 1. Fever, tachycardia, weakness, possibly neutropenic sepsis. 2. Lung cancer with multiple metastatic cysts to the peritoneum as well as causing possibly bleeding as well as status post radiation. 3. History of recurrent GI gastroenteritis secondary to radiation therapy or chemotherapy. 4. Anemia secondary to chemotherapy and malignancy. 5. Ovarian tumor, possibly indicating metastatic from the lungs. 6. History of pulmonary embolus. 7. History of gastroesophageal reflux disease. 8. Hypertension. 9. Hyperlipidemia. 10.History of myocardial infarction. 11.History of brain aneurysm. 12.History of anxiety. 13.History of panic disorder. 14.History of nicotine dependence. 15.FULL CODE. RECOMMENDATION: Recommend to continue current management and symptomatic treatment with IV antibiotics. Repeat labs. Hemoglobin is improved after transfusion. Prognosis guarded. Further recommendations to follow. Follow the cultures. MMODL / IJN: [id number] /
--- NOTE | 2018-11-07 15:49 | P.PN ---
Subjective Progress Note Date: 11/07/18 Principal diagnosis: febrile neutropenia, chemo induced anemia Pt doing good today, no fever, oral irritation, she is tolerating oral intake, no N,V, SOB, abd pain, dysuria, diarrhea or constipation, swelling or pain. Objective - Vital Signs Vital signs: Vital Signs Temp 98 F 11/07/18 13:00 Pulse 96 11/07/18 13:00 Resp 18 11/07/18 13:00 BP 136/68 11/07/18 13:00 Pulse Ox 100 11/07/18 13:00 Intake & Output 11/06/18 11/07/18 11/07/18 18:59 06:59 18:59 Intake Total 1610 2320 Balance 1610 2320 Intake: Intake, IV Titration 1300 1900 Amount Cefepime 2 gm In Sodium 100 Chloride 0.9% 100 ml @ 200 mls/hr IVPB ONCE STA Rx#:[id number] Sodium Chloride 0.9% 1, 950 1650 000 ml @ 150 mls/hr IV . Q6H40M NAINA Rx#:[id number] Vancomycin 1,250 mg In 125 Sodium Chloride 0.9% 250 ml @ 125 mls/hr IVPB Q12H NAINA Rx#:[id number] Vancomycin 1,250 mg In 250 125 Sodium Chloride 0.9% 250 ml @ 125 mls/hr IVPB Q8H NAINA Rx#:[id number] Oral 420 Blood Product 310 Rc As-1 Unit 310 [id number] Other: Voiding Method Toilet Toilet # Voids 6 3 - Constitutional General appearance: Present: average body habitus, cooperative, no acute distress - EENT Eyes: Present: anicteric sclerae, EOMI ENT: Present: hearing grossly normal, normal oropharynx - Respiratory Respiratory: bilateral: CTA - Cardiovascular Rhythm: regular Heart sounds: normal: S1, S2 - Peripheral edema leg Peripheral Edema: bilateral: None - Gastrointestinal General gastrointestinal: Present: normal bowel sounds, soft - Neurologic Neurologic: Present: CNII-XII intact - Musculoskeletal Musculoskeletal: Present: strength equal bilaterally - Psychiatric Psychiatric: Present: A&O x's 3, appropriate affect, intact judgment & insight - Labs CBC & Chem 7: 11/07/18 08:00 11/07/18 08:00 Labs: Abnormal Lab Results - Last 24 Hours (Table) 11/06/18 11/07/18 11/07/18 Range/Units 11:20 08:00 08:00 WBC 1.3 L* (3.8-10.6) k/uL RBC 2.95 L (3.80-5.40) m/uL Hgb 8.3 L D (11.4-16.0) gm/dL Hct 25.9 L (34.0-46.0) % RDW 19.9 H (11.5-15.5) % Neutrophils # (Manual) 0.92 L (1.3-7.7) k/uL Lymphocytes # (Manual) 0.26 L (1.0-4.8) k/uL Chloride 113 H (98-107) mmol/L Carbon Dioxide 20 L (22-30) mmol/L Crossmatch See Detail Microbiology - Last 24 Hours (Table) 11/05/18 19:27 Urine Culture - Final Urine,Voided 11/05/18 18:05 Blood Culture - Preliminary Blood No Growth after 24 hours Assessment and Plan (1) Fever, unknown origin Current Visit: Yes Status: Resolved Priority: High Code(s): R50.9 - FEVER, UNSPECIFIED SNOMED Code(s): 5161900 (2) Metastatic lung cancer (metastasis from lung to other site) Narrative/Plan: Patient is status post 4 cycles of chemotherapy, 3 cycles of immunotherapy. She has required hospitalization after 3/4 cycles. Thankfully with dose reduction, her complaints are less intense/severe. 4 cycles of chemotherapy with ongoing immunotherapy planned. Anticipate patient recovery from her current condition so, she will continue with treatment on time. Current Visit: Yes Status: Chronic Priority: Medium Code(s): C34.90 - MALIGNANT NEOPLASM OF UNSP PART OF UNSP BRONCHUS OR LUNG SNOMED Code(s): 19624016 (3) Pancytopenia due to antineoplastic chemotherapy Narrative/Plan: 1 unit of packed red blood cells for hemoglobin of 5.9. Transfuse for hemoglobin less than 7 or if symptomatic. WBCs/ANC adequate at this time, no GCSF Platelets currently are normal at 263,000, no acute intervention CBC daily while inpatient, rebecca will be later this week/weekend Current Visit: Yes Status: Chronic Priority: Medium Code(s): D61.810 - ANTINEOPLASTIC CHEMOTHERAPY INDUCED PANCYTOPENIA; T45.1X5A - ADVERSE EFFECT OF ANTINEOPLASTIC AND IMMUNOSUP DRUGS, INIT SNOMED Code(s): 568888777281513 (4) Pulmonary emboli Narrative/Plan: Bilateral lower extremity Doppler report reviewed, negative for DVT. CT of the chest report reviewed. Patient does have a history of PE, does not sound like there is an acute component at this time. Patient will continue on Eliquis at this time. Current Visit: No Status: Chronic Priority: Medium Code(s): I26.99 - OTHER PULMONARY EMBOLISM WITHOUT ACUTE COR PULMONALE SNOMED Code(s): 24942813
[2018-11-07] MEDS: MONTELUKAST 10 MG TAB PO SCH (21:53)
[2018-11-07] MEDS: ATORVASTATIN 80 MG TAB PO SCH (21:54)
[2018-11-07] MEDS: CEFEPIME 1 GM in SODIUM CHLORIDE 0.9% 50 ML IVPB SCH (21:54)
[2018-11-07 22:00] VITALS: RESP 16
[2018-11-08] MEDS: VANCOMYCIN 1,250 MG in SODIUM CHLORIDE 0.9% 250 ML IVPB SCH (01:38)
[2018-11-08] MEDS: SODIUM CHLORIDE 0.9% 1,000 ML IV SCH ×2 (01:38→08:35)
[2018-11-08] MEDS: HYDROmorphone 1 MG/ML 1 ML SYRINGE IVP PRN ×2 (05:03→08:47)
[2018-11-08 05:20] VITALS: BP 134/69; PULSE 117; TEMP 98.9
[2018-11-08] MEDS: APIXABAN 5 MG TAB PO SCH (08:34)
[2018-11-08] MEDS: MAGNESIUM OXIDE 400 MG TAB PO SCH (08:34)
[2018-11-08] MEDS: SENNOSIDES-DOCUSATE SODIUM 1 EACH TAB PO SCH (08:34)
[2018-11-08] MEDS: MEGESTROL 400 MG/10 ML CUP PO SCH (08:34)
[2018-11-08] MEDS: LORATADINE 10 MG TAB PO SCH (08:35)
[2018-11-08] MEDS: METOCLOPRAMIDE 5 MG TAB PO SCH (08:35)
[2018-11-08] MEDS: FOLIC ACID 1 MG TAB PO SCH (08:35)
[2018-11-08] MEDS: FLUTICASONE 50MCG/SPRAY NASAL 16GM EA NOSTRIL SCH (08:35)
[2018-11-08] MEDS: PANTOPRAZOLE 40 MG TABLET PO SCH (08:35)
[2018-11-08] MEDS: LIDOCAINE VISCOUS 2% 15 ML CUP MUCOUS MEM SCH (08:35)
[2018-11-08] MEDS: guaiFENesin 600 MG TABLET.ER PO SCH (08:35)
[2018-11-08] MEDS: POLYETHYLENE GLYCOL 3350 17 GM POWD.PACK PO SCH (08:36)
[2018-11-08] MEDS: NYSTATIN 100,000 UNIT/ML SUSP 500,000 UNIT/5 ML CUP PO SCH (08:36)
[2018-11-08] MEDS: CEFEPIME 1 GM in SODIUM CHLORIDE 0.9% 50 ML IVPB SCH (08:36)
--- NOTE | 2018-11-08 10:11 | P.PN ---
Subjective Progress Note Date: 11/08/18 Principal diagnosis: febrile neutropenia, chemo induced anemia In f/u today pt is feeling well, tolerating oral intake, ambulatory, no fevers, nausea, diarrhea, pain is managed Objective - Vital Signs Vital signs: Vital Signs Temp 98.9 F 11/08/18 05:00 Pulse 117 H 11/08/18 05:00 Resp 16 11/08/18 05:00 BP 134/69 11/08/18 05:00 Pulse Ox 99 11/08/18 05:00 Intake & Output 11/07/18 11/08/18 11/08/18 18:59 06:59 18:59 Intake Total 1420 Balance 1420 Intake: Oral 1420 Other: Voiding Method Toilet Toilet Toilet # Voids 3 - Constitutional General appearance: Present: average body habitus, cooperative, no acute distress - EENT Eyes: Present: anicteric sclerae, EOMI ENT: Present: normal oropharynx - Respiratory Respiratory: bilateral: CTA - Cardiovascular Rhythm: regular Heart sounds: normal: S1, S2 - Peripheral edema leg Peripheral Edema: bilateral: None - Gastrointestinal General gastrointestinal: Present: normal bowel sounds, soft - Neurologic Neurologic: Present: CNII-XII intact - Musculoskeletal Musculoskeletal: Present: strength equal bilaterally - Psychiatric Psychiatric: Present: A&O x's 3, appropriate affect, intact judgment & insight - Labs CBC & Chem 7: 11/07/18 08:00 11/07/18 08:00 Labs: Abnormal Lab Results - Last 24 Hours (Table) 11/07/18 Range/Units 08:00 Neutrophils # (Manual) 0.92 L (1.3-7.7) k/uL Lymphocytes # (Manual) 0.26 L (1.0-4.8) k/uL Microbiology - Last 24 Hours (Table) 11/05/18 18:05 Blood Culture - Preliminary Blood No Growth after 48 hours Assessment and Plan (1) Fever, unknown origin Current Visit: Yes Status: Resolved Priority: High Code(s): R50.9 - FEVER, UNSPECIFIED SNOMED Code(s): 4176519 (2) Metastatic lung cancer (metastasis from lung to other site) Narrative/Plan: Patient is status post 4 cycles of chemotherapy, 3 cycles of immunotherapy. She has required hospitalization after 3/4 cycles. Thankfully with dose reduction, her complaints are less intense/severe. Ongoing immunotherapy is planned. Pt recovering well, pending this AM labs, she will likely be discharged today, she is hopeful for DC. Current Visit: Yes Status: Chronic Priority: Medium Code(s): C34.90 - MALIGNANT NEOPLASM OF UNSP PART OF UNSP BRONCHUS OR LUNG SNOMED Code(s): 59722308 (3) Pancytopenia due to antineoplastic chemotherapy Narrative/Plan: Pending this AM labs. Do not anticipate any transfusions or other interventions being necessary but, will await results. She will be followed up in the outpatient setting PRN, he next treatment appt date and time are documented in DC Current Visit: Yes Status: Chronic Priority: Medium Code(s): D61.810 - ANTINEOPLASTIC CHEMOTHERAPY INDUCED PANCYTOPENIA; T45.1X5A - ADVERSE EFFECT OF ANTINEOPLASTIC AND IMMUNOSUP DRUGS, INIT SNOMED Code(s): 131238891909741 (4) Pulmonary emboli Narrative/Plan: Bilateral lower extremity Doppler report reviewed, negative for DVT. CT of the chest report reviewed. Patient does have a history of PE, does not sound like there is an acute component at this time. Patient will continue on Eliquis at this time. Eliquis Erx-done Current Visit: No Status: Chronic Priority: Medium Code(s): I26.99 - OTHER PULMONARY EMBOLISM WITHOUT ACUTE COR PULMONALE SNOMED Code(s): 41613439
[2018-11-08 10:19] LABS: African American GFR (CKD) >90 (>60 ml/min/1.73 sqM); Anion Gap 7 mmol/L; Blood Urea Nitrogen 6 mg/dL (7-17); Calcium 8.8 mg/dL (8.4-10.2); Carbon Dioxide 20 mmol/L (22-30); Chloride 114 mmol/L (98-107); Glucose 123 mg/dL (74-99); Potassium 3.9 mmol/L (3.5-5.1); Sodium 141 mmol/L (137-145)
[2018-11-08 10:21] LABS: Anisocytosis Slight; HCT 24.7 % (34.0-46.0); HGB 7.8 gm/dL (11.4-16.0); MCH 28.2 pg (25.0-35.0); MCHC 31.6 g/dL (31.0-37.0); MCV 89.1 fL (80.0-100.0); Mean Platelet Volume 7.7; Platelet Count 188 k/uL (150-450); RBC 2.77 m/uL (3.80-5.40); RDW 19.2 % (11.5-15.5)
[2018-11-08 10:27] LABS: WBC 0.6 k/uL (3.8-10.6)
[2018-11-08 10:56] LABS: Poikilocytosis (M) Present
[2018-11-08 10:57] LABS: Tear Drop Cells Present
--- NOTE | 2018-11-08 22:38 | DS ---
DISCHARGE SUMMARY DATE OF SERVICE: 11/08/2018. FINAL DIAGNOSES: 1. Fever, tachycardia, weakness, possible neutropenic sepsis, present on admission. 2. Lung cancer with multiple metastatic to the peritoneum as well as causing possibly genitourinary bleeding as well as status post radiation. 3. History of recurrent gastroenteritis and secondary to radiation therapy or chemotherapy. 4. Anemia secondary to chemotherapy and malignancy. 5. Ovarian tumor possibly indicating metastasis from the lungs. 6. History of pulmonary embolus. 7. History of gastroesophageal reflux disease. 8. Hypertension. 9. Hyperlipidemia. 10.History of myocardial infarction. 11.History of brain aneurysm. 12.History of anxiety. 13.History of panic disorder. 14.History of nicotine dependence. 15.FULL CODE. DISCHARGE DISPOSITION: The patient left the hospital AGAINST MEDICAL ADVICE. HISTORY OF PRESENT ILLNESS: This 52-year-old woman with a past medical history of multiple medical problems, was admitted with fever and tachycardia. The patient also had a neutropenia and sepsis. The patient was given IV antibiotics and WBC 0.6, hemoglobin 7.8. The patient left the hospital AGAINST MEDICAL ADVICE. Please refer to the home medications list for list of medications. MMODL / IJN: [id number] /
[2018-11-09] MEDS ORDERED: VANCOMYCIN TROUGH DUE 1 EACH MISC MISCELLANE ONE (13:00)
== END 2018-11-08 11:19 | disposition left against medical advice (07) | DRG 871 ==
LOC: EC 16:56 → 3NMEDONC 21:04
PROVIDERS: ADMIT Hospitalist; ATTEND Hospitalist
DX: A41.89 Other specified sepsis (principal); D61.810 Antineoplastic chemotherapy induced pancytopenia; C78.6 Secondary malignant neoplasm of retroperitoneum and peritoneum; C79.60 Secondary malignant neoplasm of unspecified ovary; K52.1 Toxic gastroenteritis and colitis; D63.0 Anemia in neoplastic disease; E78.5 Hyperlipidemia, unspecified; E86.0 Dehydration; F41.0 Panic disorder [episodic paroxysmal anxiety]; I10 Essential (primary) hypertension; I25.2 Old myocardial infarction; K21.9 Gastro-esophageal reflux disease without esophagitis; T45.1X5A Adverse effect of antineoplastic and immunosuppressive drugs, initial encounter; Z79.01 Long term (current) use of anticoagulants; Z79.899 Other long term (current) drug therapy; Z80.9 Family history of malignant neoplasm, unspecified; Z85.118 Personal history of other malignant neoplasm of bronchus and lung; Z85.819 Personal history of malignant neoplasm of unspecified site of lip, oral cavity, and pharynx; Z86.73 Personal history of transient ischemic attack (TIA), and cerebral infarction without residual deficits; Z86.711 Personal history of pulmonary embolism; Z87.891 Personal history of nicotine dependence; Z92.3 Personal history of irradiation; Z88.0 Allergy status to penicillin
CPT/HCPCS: 36415; 71046; 71275; 80048; 80053; 80202; 81001; 83605; 83735; 83880; 84100; 84484; 85025; 85379; 85610; 85730; 86850; 86900; 86901; 86920; 87040; 87086; 93005; 93970; 96361; 96365; 96375; 99285

== ENCOUNTER 2018-11-22 12:25 | Emergency (ER) | payer OTHER ==
[2018-11-22] MEDS ORDERED: ONDANSETRON 4 MG/2 ML VIAL IVP STA (13:22)
[2018-11-22] MEDS ORDERED: SODIUM CHLORIDE 0.9% 1,000 ML IV STA (13:22)
[2018-11-22] MEDS ORDERED: HYDROmorphone 0.5 MG/0.5 ML SYRINGE IVP STA (13:22)
--- NOTE | 2018-11-22 14:06 | ED ---
General Adult HPI - General Chief complaint: Abdominal Pain Stated complaint: Abd pain, weakness Time Seen by Provider: 11/22/18 13:14 Source: patient, RN notes reviewed Mode of arrival: wheelchair Limitations: no limitations - History of Present Illness Initial comments: 52-year-old female with a past medical history of lung cancer metastasized to the abdomen, hyperlipidemia, hypertension, DC, GERD presents to the emergency department for a chief complaint of abdominal pain. States this has been ongoing for several days. States she has had this type of pain before with her cancer. Patient states she last received chemo and radiation 2 weeks ago. States she is taking many laxatives and is is causing her to have some diarrhea which makes her feel weak but if she does not take this then she starts to become constipated. Admits to nausea but denies vomiting.denies any fevers. Patient has no other complaints at this time including shortness of breath, chest pain, vomiting, headache, or visual changes. - Related Data Home Medications Medication Instructions Recorded Confirmed Ondansetron [Zofran ODT] 4 mg PO Q8HR PRN 08/30/18 11/22/18 Sennosides-Docusate Sodium 2 tab PO BID 11/05/18 11/22/18 [Senokot-S] Previous Rx's Medication Instructions Recorded Folic Acid 1 mg PO DAILY #30 tab 08/24/18 Pantoprazole Sodium [Protonix] 40 mg PO DAILY #30 tablet. 08/24/18 Acetaminophen Tab [Tylenol] 650 mg PO Q6HR PRN tab 09/01/18 Megestrol [Megace] 400 mg PO DAILY #30 cup 09/01/18 Docusate [Colace] 100 mg PO BID PRN #60 capsule 09/09/18 Sennosides [Senna] 8.6 mg PO HS PRN #60 tablet 09/09/18 Bisacodyl [Dulcolax] 10 mg PO DAILY PRN #7 tablet. 10/23/18 Metoclopramide [Reglan] 5 mg PO ACHS #15 tab 10/23/18 Fluticasone Nasal [place] [Flonase 2 spray EA NOSTRIL DAILY #1 bottle 10/26/18 Nasal [place]] Loratadine [Claritin] 10 mg PO DAILY #30 tab 10/26/18 Magnesium Oxide [Mag-Ox] 400 mg PO TID #90 tab 10/26/18 Montelukast [Singulair] 10 mg PO HS #30 tab 10/26/18 Polyethylene Glycol 3350 [Miralax] 17 gm PO DAILY 30 Days #30 packet 10/26/18 fentaNYL 12MCG/HR PATCH [Duragesic 1 patch TRANSDERM Q72H #10 patch 10/26/18 12MCG/HR] oxyCODONE-APAP 10-325MG [Percocet 1 tab PO QID PRN 3 Days #12 tab 10/26/18 10-325 mg] Apixaban [Eliquis] 5 mg PO BID #60 tab 11/08/18 Allergies Allergy/AdvReac Type Severity Reaction Status Date / Time Penicillins Allergy Unknown Verified 11/22/18 13:07 Childhood Review of Systems ROS Statement: Those systems with pertinent positive or pertinent negative responses have been documented in the HPI. ROS Other: All systems not noted in ROS Statement are negative. Past Medical History Past Medical History: Cancer, GERD/Reflux, Hyperlipidemia, Hypertension, Myocardial Infarction (DC) Additional Past Medical History / Comment(s): BRAIN ANEURSYM, DC 2012, LUNG CA diagnosed 2014, CARPAL TUNNEL RIGHT WRIST, throat CA dx apr 2018 Last Myocardial Infarction Date:: 04/30/2013 History of Any Multi-Drug Resistant Organisms: None Reported Past Surgical History: Heart Catheterization, Orthopedic Surgery, Tubal Ligation, Uterine Ablation Additional Past Surgical History / Comment(s): ANGIOPLASTY FOR BRAIN ANEURSYM, CARPEL TUNNEL RIGHT WRIST , and laparoscopy, PARTIAL RIGHT LUNG REMOVAL ,PTCA, Past Anesthesia/Blood Transfusion Reactions: No Reported Reaction Past Psychological History: Anxiety, Panic Disorder Smoking Status: Former smoker Past Alcohol Use History: None Reported Past Drug Use History: None Reported - Past Family History Mother Family Medical History: Cancer Father Family Medical History: Cancer General Exam Limitations: no limitations General appearance: alert, in no apparent distress Head exam: Present: atraumatic, normocephalic, normal inspection Eye exam: Present: normal appearance, PERRL, EOMI. Absent: scleral icterus, conjunctival injection, periorbital swelling ENT exam: Present: normal exam, mucous membranes moist Neck exam: Present: normal inspection, full ROM. Absent: tenderness, meningismus, lymphadenopathy Respiratory exam: Present: normal lung sounds bilaterally. Absent: respiratory distress, wheezes, rales, rhonchi, stridor Cardiovascular Exam: Present: regular rate, normal rhythm, normal heart sounds. Absent: bradycardia, tachycardia, irregular rhythm GI/Abdominal exam: Present: soft, tenderness (mild generalized tenderness), normal bowel sounds. Absent: distended, guarding, rebound, rigid Neurological exam: Present: alert, oriented X3, CN II-XII intact Psychiatric exam: Present: normal affect, normal mood Course Vital Signs 11/22/18 11/22/18 12:32 14:42 Temperature 99.1 F Pulse Rate 116 H 102 H Respiratory 18 19 Rate Blood Pressure 112/79 144/90 O2 Sat by Pulse 100 98 Oximetry Medical Decision Making - Medical Decision Making 52-year-old female with a past medical history of lung cancer metastasized to the peritoneum presents for abdominal pain. Ongoing for several days. Patient has had this type of cancer many times before. Patient minimally tender across the abdomen in a generalized fashion. No guarding or rebound. CBC does show a hemoglobin of 9 which is chronic in nature. CMP is unremarkable. Patient initially tachycardic at 116. Does appear dry, patient was given a liter of fluids. On reexamination patient heart rate is in the 90s. Abdomen is nontender, patient feeling much better. Actually requesting discharge. Patient we discharged home to follow up with her oncologist and primary care. Will return here if she has any worsening symptoms. Patient had a CT chest abdomen and pelvis with contrast one month ago on 10/25/2018 which demonstrated peritoneal carcinomatosis with some persistent fluid as well as a right pelvic mass. - Lab Data Result diagrams: 11/22/18 14:30 11/22/18 14:30 Lab Results 11/22/18 11/22/18 Range/Units 14:30 14:30 WBC 7.3 (3.8-10.6) k/uL RBC 3.09 L (3.80-5.40) m/uL Hgb 9.0 L (11.4-16.0) gm/dL Hct 28.3 L (34.0-46.0) % MCV 91.8 (80.0-100.0) fL MCH 29.2 (25.0-35.0) pg MCHC 31.8 (31.0-37.0) g/dL RDW 23.0 H (11.5-15.5) % Plt Count 435 D (150-450) k/uL Neutrophils % 79 % Lymphocytes % 9 % Monocytes % 7 % Eosinophils % 1 % Basophils % 0 % Neutrophils # 5.8 (1.3-7.7) k/uL Lymphocytes # 0.7 L (1.0-4.8) k/uL Monocytes # 0.5 (0-1.0) k/uL Eosinophils # 0.1 (0-0.7) k/uL Basophils # 0.0 (0-0.2) k/uL Hypochromasia Moderate Poikilocytosis Slight Anisocytosis Moderate Macrocytosis Slight Sodium 141 (137-145) mmol/L Potassium 4.4 (3.5-5.1) mmol/L Chloride 112 H (98-107) mmol/L Carbon Dioxide 21 L (22-30) mmol/L Anion Gap 8 mmol/L BUN 9 (7-17) mg/dL Creatinine 0.61 (0.52-1.04) mg/dL Est GFR (CKD-EPI)AfAm >90 (>60 ml/min/1.73 sqM) Est GFR (CKD-EPI)NonAf >90 (>60 ml/min/1.73 sqM) Glucose 98 (74-99) mg/dL Calcium 9.5 (8.4-10.2) mg/dL Total Bilirubin 0.3 (0.2-1.3) mg/dL AST 24 (14-36) U/L ALT 25 (9-52) U/L Alkaline Phosphatase 79 (38-126) U/L Total Protein 6.8 (6.3-8.2) g/dL Albumin 3.5 (3.5-5.0) g/dL Amylase 104 (30-110) U/L Lipase 148 (23-300) U/L Disposition Clinical Impression: Abdominal pain Disposition: HOME SELF-CARE Condition: Good Instructions (If sedation given, give patient instructions): Abdominal Pain (ED) Additional Instructions: Please follow up with primary care in 1-2 days. Please return here to the emergency department if you have any worsening symptoms. Is patient prescribed a controlled substance at d/c from ED?: No Referrals: Latisha Ziegler MD [Primary Care Provider] - 1-2 days Time of Disposition: 15:35
[2018-11-22 14:50] LABS: Anisocytosis Moderate; Basophils % (A) 0 %; Eosinophils # (A) 0.1 k/uL (0-0.7); Eosinophils % (A) 1 %; HCT 28.3 % (34.0-46.0); Hypochromasia Moderate; Lymphocytes # (A) 0.7 k/uL (1.0-4.8); Lymphocytes % (A) 9 %; MCH 29.2 pg (25.0-35.0); MCHC 31.8 g/dL (31.0-37.0); MCV 91.8 fL (80.0-100.0); Macrocytosis Slight; Mean Platelet Volume 7.6; Monocytes # (A) 0.5 k/uL (0-1.0); Monocytes % (A) 7 %; Neutrophils # (A) 5.8 k/uL (1.3-7.7); Neutrophils % (A) 79 %; Poikilocytosis Slight; RBC 3.09 m/uL (3.80-5.40); WBC 7.3 k/uL (3.8-10.6)
[2018-11-22 14:52] LABS: Platelet Count 435 k/uL (150-450)
[2018-11-22 14:56] LABS: ALT 25 U/L (9-52); AST 24 U/L (14-36); African American GFR (CKD) >90 (>60 ml/min/1.73 sqM); Albumin 3.5 g/dL (3.5-5.0); Alkaline Phosphatase 79 U/L (38-126); Amylase 104 U/L (30-110); Anion Gap 8 mmol/L; Blood Urea Nitrogen 9 mg/dL (7-17); Calcium 9.5 mg/dL (8.4-10.2); Carbon Dioxide 21 mmol/L (22-30); Chloride 112 mmol/L (98-107); Glucose 98 mg/dL (74-99); Lipase 148 U/L (23-300); Potassium 4.4 mmol/L (3.5-5.1); Sodium 141 mmol/L (137-145); Total Bilirubin 0.3 mg/dL (0.2-1.3); Total Protein 6.8 g/dL (6.3-8.2)
[2018-11-22 16:00] VITALS: BP 138/86; PULSE 109; RESP 18; TEMP 98
== END 2018-11-22 15:59 | disposition home or self-care (01) ==
LOC: EC 12:25
DX: R10.84 Generalized abdominal pain (principal); R53.1 Weakness; R00.0 Tachycardia, unspecified; C78.6 Secondary malignant neoplasm of retroperitoneum and peritoneum; R19.00 Intra-abdominal and pelvic swelling, mass and lump, unspecified site; I25.2 Old myocardial infarction; R19.7 Diarrhea, unspecified; R11.0 Nausea; Z85.118 Personal history of other malignant neoplasm of bronchus and lung; Z92.21 Personal history of antineoplastic chemotherapy; Z92.3 Personal history of irradiation; Z85.819 Personal history of malignant neoplasm of unspecified site of lip, oral cavity, and pharynx; Z87.891 Personal history of nicotine dependence; Z98.51 Tubal ligation status; Z98.61 Coronary angioplasty status; Z98.890 Other specified postprocedural states; Z79.899 Other long term (current) drug therapy; Z88.0 Allergy status to penicillin
CPT/HCPCS: 36415; 80053; 82150; 83690; 85025; 99284; 96374; 96375; 96361; J2405; J1170

== ENCOUNTER → 2019-01-07 | Outpatient (CLI) | payer OTHER ==
--- NOTE | 2019-01-07 17:45 | CT ---
EXAMINATION TYPE: CT ChestAbdPelvis w con DATE OF EXAM: 01/07/2019 INDICATION: Follow up lung ca COMPARISON: CT DLP: 560.6 mGycm CONTRAST: Performed with Oral Contrast and with IV Contrast, patient injected with 80 mL of Isovue 300. TECHNIQUE: Axial images at 5 mm thick sections. Reconstructed images in the coronal plane. Delayed images through the kidneys. FINDINGS: CT CHEST: Portion of the thyroid visualized is normal. 11/05/2018 There is a spiculated density at the as ago esophageal recess at the right lung base. Series 4 image 39. This appears less full than the comparison. A 0.5 cm nodules along the left mediastinal border. S eries 4 image 25. This was present previously. Emphysematous changes are evident. No enlarged mediastinal or hilar adenopathy is evident. There is a somewhat prominent right axillary lymph node 0.9 cm transverse. Series 3 image 14. The ascending aorta diameter at the level of the main pulmonary artery is 3.2 cm. The main pulmonary artery diameter at the bifurcation is 3.[address] ABDOMEN: Liver: There are scattered subtle hypodensities within the liver which are suspicious for metastatic lesions. These have a density to close to the liver to suggest cyst. Example images include a 0.8 cm hypodense area lateral right mid lobe liver. Series 3 image 51. Hypodense lesions within the left lob e measuring 0.7-0.9 cm, series 3 image 48. Additional more hypodense lesions are within the superior right lobe liver measuring 1.0 cm and 0.4 cm, series 3 image 43. Additional evaluation is recommended such as with PET scan. Spleen: Normal Pancreas: Normal Adrenal glands: Left adrenal gland is thickened at 1.1 cm. The right adrenal gland appears normal. Gallbladder: Normal Kidneys: No masses are evident. No hydronephrosis is present. No cysts are present. Delayed images were obtained through the kidneys, which remain unremarkable. Aorta: Vascular calcification is within the aorta. Inferior vena cava: Normal. CT PELVIS: Loops of bowel within the abdomen and pelvis are normal. There are loops of bowel which are incom pletely distended or lack oral contrast limiting their evaluation. Appendix: Not identified. Urinary bladder: Normal. Genitourinary structures: Uterus is enlarged with multiple heterogenous densities consider multiple f ibroids. Adnexal regions appear within normal limits. Osseous structures: No suspicious lytic or sclerotic lesions. IMPRESSIONS: 1. There are suspicious subtle hypodensities measuring around 1 cm within the liver suspicious for me tastatic disease. Additional workup with PET CT is recommended. 2. Enlarged uterus with multiple fibroids. 3. Enlarged left adrenal gland. 4. Couple of small areas of pneumonitis within the lungs discussed above. Small neoplasm such as meta static disease should be considered.
== END | disposition home or self-care (01) ==
LOC: RADPROMAIN 12:23
PROVIDERS: ATTEND Internal Medicine Hematology & Oncology
DX: J43.8 Other emphysema (principal); C34.90 Malignant neoplasm of unspecified part of unspecified bronchus or lung; N85.2 Hypertrophy of uterus; D25.9 Leiomyoma of uterus, unspecified; J18.9 Pneumonia, unspecified organism; E27.8 Other specified disorders of adrenal gland; Z88.0 Allergy status to penicillin
CPT/HCPCS: 82565; 84520; 71260; 74177; J1642; Q9967

== ENCOUNTER 2019-01-28 11:44 | Emergency (ER) | payer OTHER ==
[~2019-01-28 11:44] MED LIST changes: +HUMAN PROTHROMBIN COMPLX 500 UNIT/16 ML VIAL IV ONE; -LACTATED RINGERS 1,000 ML IV SCH
[2019-01-28 11:49] VITALS: TEMP 98.2
[2019-01-28] MEDS ORDERED: ONDANSETRON 4 MG/2 ML VIAL IVP STA (12:03)
[2019-01-28] MEDS ORDERED: LORazepam 2 MG/ML INJ IV STA (12:03)
[2019-01-28] MEDS ORDERED: HYDROmorphone 0.5 MG/0.5 ML SYRINGE IVP STA ×2 (12:03→14:10)
--- NOTE | 2019-01-28 12:07 | ED ---
General Adult HPI - General Chief complaint: Shortness of Breath Stated complaint: Throat swelling/sob/lt arm pain Time Seen by Provider: 01/28/19 11:45 Source: patient, RN notes reviewed Mode of arrival: wheelchair Limitations: no limitations - History of Present Illness Initial comments: This is a 53-year-old female who presents emergency Department with a past medical history significant for metastatic lung cancer. Patient states she's had radiation of her throat in November. Patient states over the last 2 days she's had more more difficulty swallowing more more pain in her throat. Patient states she can barely touch because it hurt so much. Patient states she is able to swallow saliva but barely. Patient states sometimes it makes her feel like she can't take a deep breath but she has been able to breathe so far. Patient also complains of left shoulder and some left arm pain. Denies any chest pain. Patient denies any fever chills. Patient denies abdominal pain patient denies nausea vomiting. Patient denies any headache. Patient denies any posterior neck pain. - Related Data Home Medications Medication Instructions Recorded Confirmed Ondansetron [Zofran ODT] 4 mg PO Q8HR PRN 08/30/18 01/28/19 Atorvastatin [Lipitor] 80 mg PO HS 01/28/19 01/28/19 Previous Rx's Medication Instructions Recorded Folic Acid 1 mg PO DAILY #30 tab 08/24/18 Pantoprazole Sodium [Protonix] 40 mg PO DAILY #30 tablet. 08/24/18 Megestrol [Megace] 400 mg PO DAILY #30 cup 09/01/18 Sennosides [Senna] 8.6 mg PO HS PRN #60 tablet 09/09/18 Magnesium Oxide [Mag-Ox] 400 mg PO TID #90 tab 10/26/18 fentaNYL 12MCG/HR PATCH [Duragesic 1 patch TRANSDERM Q72H #10 patch 10/26/18 12MCG/HR] oxyCODONE-APAP 10-325MG [Percocet 1 tab PO QID PRN 3 Days #12 tab 10/26/18 10-325 mg] Apixaban [Eliquis] 5 mg PO BID #60 tab 11/08/18 Allergies Allergy/AdvReac Type Severity Reaction Status Date / Time Penicillins Allergy Unknown Verified 01/28/19 12:58 Childhood Review of Systems ROS Statement: Those systems with pertinent positive or pertinent negative responses have been documented in the HPI. ROS Other: All systems not noted in ROS Statement are negative. Past Medical History Past Medical History: Cancer, GERD/Reflux, Hyperlipidemia, Hypertension, Myocardial Infarction ([place]) Additional Past Medical History / Comment(s): BRAIN ANEURSYM, [place] 2012, LUNG CA diagnosed 2014, CARPAL TUNNEL RIGHT WRIST, throat CA dx apr 2018 Last Myocardial Infarction Date:: 04/30/2013 History of Any Multi-Drug Resistant Organisms: None Reported Past Surgical History: Heart Catheterization, Orthopedic Surgery, Tubal Ligation, Uterine Ablation Additional Past Surgical History / Comment(s): ANGIOPLASTY FOR BRAIN ANEURSYM, CARPEL TUNNEL RIGHT WRIST , and laparoscopy, PARTIAL RIGHT LUNG REMOVAL ,PTCA, Past Anesthesia/Blood Transfusion Reactions: No Reported Reaction Past Psychological History: Anxiety, Panic Disorder Smoking Status: Former smoker Past Alcohol Use History: None Reported Past Drug Use History: None Reported - Past Family History Mother Family Medical History: Cancer Father Family Medical History: Cancer General Exam - General Exam Comments Initial Comments: GENERAL: Patient is well-developed and well-nourished. Patient is nontoxic and well- hydrated and is in moderate distress. ENT: Neck is soft and supple. No significant lymphadenopathy is noted. Oropharynx is clear. Moist mucous membranes. Patient is unable to move her neck with full range motion secondary to the anterior pain that is causing her. I'm unable to help it here because of the pain. It does look swollen a little more on the left than the right.. EYES: The sclera were anicteric and conjunctiva were pink and moist. Extraocular movements were intact and pupils were equal round and reactive to light. Eyelids were unremarkable. PULMONARY: Unlabored respirations. Good breath sounds bilaterally. No audible rales rhonchi or wheezing was noted. CARDIOVASCULAR: There is a regular rate and rhythm without any murmurs gallops or rubs. ABDOMEN: Soft and nontender with normal bowel sounds. SKIN: Skin is clear with no lesions or rashes and otherwise unremarkable. NEUROLOGIC: Patient is alert and oriented x3. Cranial nerves II through XII are grossly intact. Motor and sensory are also intact. Normal speech, volume and content. Symmetrical smile. MUSCULOSKELETAL: Normal extremities with adequate strength and full range of motion. No lower extremity swelling or edema. No calf tenderness. LYMPHATICS: No significant lymphadenopathy is noted PSYCHIATRIC: Normal psychiatric evaluation. Limitations: no limitations Course Vital Signs 01/28/19 01/28/19 01/28/19 11:47 12:07 13:03 Temperature 98.2 F Pulse Rate 122 H 103 H Respiratory 22 20 18 Rate Blood Pressure 146/108 135/91 O2 Sat by Pulse 100 100 Oximetry 01/28/19 01/28/19 14:06 15:58 Temperature Pulse Rate 103 H 112 H Respiratory 18 18 Rate Blood Pressure 126/99 134/75 O2 Sat by Pulse 100 97 Oximetry Medical Decision Making - Medical Decision Making EKG shows sinus tachycardia at 108 bpm TX interval 218 QRS is 74 QT interval 322 QTC is 431. Patient's EKG shows no ST segment elevation or depression or T wave abnormalities are noted. Patient's CT of the neck shows no acute abnormality. Patient's CT of the brain shows a new left subarachnoid hemorrhage. I ordered patient's platelets as well as [facility]. Platelets will not be given because they will not be here in time. I informed Dr. Ruvalcaba at [facility] that I didn't give the platelets but he center was given. They did accept the patient so the patient will be transferred. - Lab Data Result diagrams: 01/28/19 13:00 01/28/19 13:00 Lab Results 01/28/19 01/28/19 01/28/19 Range/Units 13:00 13:00 13:00 WBC 7.0 (3.8-10.6) k/uL RBC 3.53 L (3.80-5.40) m/uL Hgb 10.9 L (11.4-16.0) gm/dL Hct 32.8 L (34.0-46.0) % MCV 92.9 D (80.0-100.0) fL MCH 30.8 (25.0-35.0) pg MCHC 33.1 (31.0-37.0) g/dL RDW 16.2 H (11.5-15.5) % Plt Count 18 L* D (150-450) k/uL Neutrophils % 82 % Lymphocytes % 9 % Monocytes % 5 % Eosinophils % 2 % Basophils % 0 % Neutrophils # 5.8 (1.3-7.7) k/uL Lymphocytes # 0.6 L (1.0-4.8) k/uL Monocytes # 0.4 (0-1.0) k/uL Eosinophils # 0.2 (0-0.7) k/uL Basophils # 0.0 (0-0.2) k/uL Manual Slide Review Performed Anisocytosis Slight PT (9.0-12.0) sec INR (<1.2) APTT (22.0-30.0) sec Sodium 139 (137-145) mmol/L Potassium 4.0 (3.5-5.1) mmol/L Chloride 108 H (98-107) mmol/L Carbon Dioxide 21 L (22-30) mmol/L Anion Gap 10 mmol/L BUN 15 (7-17) mg/dL Creatinine 0.88 (0.52-1.04) mg/dL Est GFR (CKD-EPI)AfAm 89 (>60 ml/min/1.73 sqM) Est GFR (CKD-EPI)NonAf 77 (>60 ml/min/1.73 sqM) Glucose 77 (74-99) mg/dL Calcium 9.7 (8.4-10.2) mg/dL Magnesium 1.8 (1.6-2.3) mg/dL Total Bilirubin 0.6 (0.2-1.3) mg/dL AST 35 (14-36) U/L ALT 47 (9-52) U/L Alkaline Phosphatase 85 (38-126) U/L Troponin I 0.064 H* (0.000-0.034) ng/mL NT-Pro-B Natriuret Pep pg/mL Total Protein 6.9 (6.3-8.2) g/dL Albumin 3.7 (3.5-5.0) g/dL TSH 2.490 (0.465-4.680) mIU/L Free T4 1.27 (0.78-2.19) ng/dL 01/28/19 01/28/19 Range/Units 13:00 13:00 WBC (3.8-10.6) k/uL RBC (3.80-5.40) m/uL Hgb (11.4-16.0) gm/dL Hct (34.0-46.0) % MCV (80.0-100.0) fL MCH (25.0-35.0) pg MCHC (31.0-37.0) g/dL RDW (11.5-15.5) % Plt Count (150-450) k/uL Neutrophils % % Lymphocytes % % Monocytes % % Eosinophils % % Basophils % % Neutrophils # (1.3-7.7) k/uL Lymphocytes # (1.0-4.8) k/uL Monocytes # (0-1.0) k/uL Eosinophils # (0-0.7) k/uL Basophils # (0-0.2) k/uL Manual Slide Review Anisocytosis PT 12.6 H (9.0-12.0) sec INR 1.2 H (<1.2) APTT 24.1 (22.0-30.0) sec Sodium (137-145) mmol/L Potassium (3.5-5.1) mmol/L Chloride (98-107) mmol/L Carbon Dioxide (22-30) mmol/L Anion Gap mmol/L BUN (7-17) mg/dL Creatinine (0.52-1.04) mg/dL Est GFR (CKD-EPI)AfAm (>60 ml/min/1.73 sqM) Est GFR (CKD-EPI)NonAf (>60 ml/min/1.73 sqM) Glucose (74-99) mg/dL Calcium (8.4-10.2) mg/dL Magnesium (1.6-2.3) mg/dL Total Bilirubin (0.2-1.3) mg/dL AST (14-36) U/L ALT (9-52) U/L Alkaline Phosphatase (38-126) U/L Troponin I (0.000-0.034) ng/mL NT-Pro-B Natriuret Pep 134 pg/mL Total Protein (6.3-8.2) g/dL Albumin (3.5-5.0) g/dL TSH (0.465-4.680) mIU/L Free T4 (0.78-2.19) ng/dL Critical Care Time Critical Care Time: Yes Total Critical Care Time: 35 Disposition Clinical Impression: Subarachnoid hemorrhage, Thrombocytopenia, Elevated troponin Disposition: OTHER INSTITUTION NOT DEFINED Referrals: Latisha Ziegler MD [Primary Care Provider] - 1-2 days Time of Disposition: 16:31 - Out of Hospital Transfer - Req. Specs Out of Hospital Transfer - Requested Specifics: Other Emergency Center ([facility])
[2019-01-28 13:05] VITALS: RESP 18
--- NOTE | 2019-01-28 13:16 | CT ---
EXAMINATION TYPE: CT neck chest w con DATE OF EXAM: 01/28/2019 COMPARISON: CT January 07, 2019 and older CTs. HISTORY: Difficulty swallowing and breathing post radiation treatment of lung cancer CT DLP: 472.1 mGycm. Automated Exposure Control for Dose Reduction was Utilized. TECHNIQUE: CT scan of the thorax is performed following with IV Contrast, patient injected with 100 mL of Isovue 300. FINDINGS: NECK: Airway is grossly patent. The epiglottis and vallecula is within normal limits. Thyroid gland r emains normal in size. Parotid and submandibular glands are within normal limits. Low occipital crani otomy changes seen. Right internal jugular Mediport catheter redemonstrated moderate spurring and dis c space narrowing C5-C6 level. Posterior disc herniations at this level and C4-C5 level effacing ante rior thecal sac. No suspicious thoracic adenopathy. CHEST: LUNGS: Moderate underlying emphysematous change with scattered groundglass opacity. Some scattered li near scarring particularly right mid to lower lung. No new nodules or masses. MEDIASTINUM: There are no greater than 1 cm hilar or mediastinal lymph nodes. No pericardial effusi on is seen. Stable mild cardiomegaly. OTHER: Heterogeneous hypodense lesions throughout the liver consistent with metastatic disease redemo nstrated. Lesions are enlarging in size and number. For reference 3.3 cm anterior left hepatic lobe l esion seen axial image 56. IMPRESSION: No suspicious acute finding seen to account for patient's acute onset symptoms of difficu lty swallowing. Background moderate emphysematous change with mild bilateral alveolar edema suspected due to mosaic heterogeneous increased groundglass opacity. Incidental hepatic metastatic disease pro gression is thought present.
[2019-01-28 13:24] LABS: Anisocytosis Slight; Basophils % (A) 0 %; Eosinophils # (A) 0.2 k/uL (0-0.7); Eosinophils % (A) 2 %; HCT 32.8 % (34.0-46.0); HGB 10.9 gm/dL (11.4-16.0); Lymphocytes # (A) 0.6 k/uL (1.0-4.8); Lymphocytes % (A) 9 %; MCH 30.8 pg (25.0-35.0); MCHC 33.1 g/dL (31.0-37.0); Monocytes # (A) 0.4 k/uL (0-1.0); Monocytes % (A) 5 %; Neutrophils # (A) 5.8 k/uL (1.3-7.7); Neutrophils % (A) 82 %; RBC 3.53 m/uL (3.80-5.40); RDW 16.2 % (11.5-15.5)
[2019-01-28 13:31] LABS: MCV 92.9 fL (80.0-100.0)
[2019-01-28 13:49] LABS: Platelet Count 18 k/uL (150-450)
[2019-01-28 13:56] LABS: Albumin 3.7 g/dL (3.5-5.0); Calcium 9.7 mg/dL (8.4-10.2); Magnesium 1.8 mg/dL (1.6-2.3); Total Bilirubin 0.6 mg/dL (0.2-1.3); Total Protein 6.9 g/dL (6.3-8.2)
[2019-01-28 14:13] LABS: T4, Free (Free Thyroxine) 1.27 ng/dL (0.78-2.19)
--- NOTE | 2019-01-28 15:24 | CT ---
EXAMINATION TYPE: CT brain wo con DATE OF EXAM: 01/28/2019 HISTORY: Dysphagia, headache. CT DLP: 1040.4 mGycm. Automated Exposure Control for Dose Reduction was Utilized. TECHNIQUE: CT scan of the head is performed without contrast. COMPARISON: CT brain September 04, 2018. CT neck study earlier today. FINDINGS: There is no acute subarachnoid hemorrhage filling the posterior left parietal occipital s ulci. No midline shift is seen. Low occipital craniotomy changes redemonstrated at level of the cereb ellum. No hydrocephalus. Globes are intact and visualized sinuses are clear. IMPRESSION: New left posterior acute subarachnoid hemorrhage. Critical results communicated to ordering ER physician via telephone at time of dictation.
[2019-01-28 15:43] LABS: INR 1.2 (<1.2); Partial Thromboplastin Time 24.1 sec (22.0-30.0); Prothrombin Time 12.6 sec (9.0-12.0)
[2019-01-28] MEDS ORDERED: Kcentra PER PHARMACY 1 EACH MISC MISCELLANE PRN (15:53)
[2019-01-28 15:59] VITALS: BP 134/75; PULSE 112
[2019-01-28] MEDS ORDERED: DEXAMETHASONE SOD PHOSPHATE 10 MG/ML 1 ML VIAL IV STA (16:00)
[2019-01-28] MEDS ORDERED: HYDROmorphone 1 MG/ML 1 ML SYRINGE IVP STA (16:00)
[2019-01-28] MEDS ORDERED: HUMAN PROTHROMBIN COMPLX IV ONE (16:15)
== END 2019-01-28 17:25 | disposition short-term general hospital (02) ==
LOC: EC 11:44
DX: I60.9 Nontraumatic subarachnoid hemorrhage, unspecified (principal); R13.10 Dysphagia, unspecified; D69.6 Thrombocytopenia, unspecified; R79.89 Other specified abnormal findings of blood chemistry; R00.0 Tachycardia, unspecified; M25.512 Pain in left shoulder; M79.602 Pain in left arm; E78.5 Hyperlipidemia, unspecified; I10 Essential (primary) hypertension; I25.2 Old myocardial infarction; Z87.891 Personal history of nicotine dependence; Z88.0 Allergy status to penicillin; Z79.899 Other long term (current) drug therapy; Z85.118 Personal history of other malignant neoplasm of bronchus and lung; Z85.818 Personal history of malignant neoplasm of other sites of lip, oral cavity, and pharynx; Z86.69 Personal history of other diseases of the nervous system and sense organs; Z90.2 Acquired absence of lung [part of]; Z95.818 Presence of other cardiac implants and grafts; Z98.61 Coronary angioplasty status; Z98.890 Other specified postprocedural states
CPT/HCPCS: 36415; 93005; 84439; 83880; 80053; 84443; 83735; 84484; 85025; 85610; 85730; 70491; 70450; 71260; 99291; 96365; 96375 ×4; 96376; J2060; J1100; J2405; C9132; J1170; Q9967

== ENCOUNTER 2019-02-03 14:28 | Observation (INO) | payer OTHER ==
[2019-02-03] MEDS ORDERED: ONDANSETRON 4 MG/2 ML VIAL IVP STA (15:09)
[2019-02-03] MEDS ORDERED: HYDROmorphone 0.5 MG/0.5 ML SYRINGE IVP STA (15:09)
[2019-02-03] MEDS ORDERED: DIAZEPAM 5 MG/ML 2 ML INJ IVP STA (15:09)
--- NOTE | 2019-02-03 15:20 | ED ---
General Adult HPI - General Chief complaint: Weakness Stated complaint: Weakness, Neck Swelling Time Seen by Provider: 02/03/19 14:40 Source: patient, RN notes reviewed Mode of arrival: ambulatory Limitations: no limitations - History of Present Illness Initial comments: This is a 53-year-old female presents emergency Department with metastatic lung cancer. Patient recently had a subarachnoid hemorrhage and thrombocytopenia. Patient was released from the hospital at [facility] yesterday. Patient states since then her left trapezius muscle is extremely sore to touch or with any movement. Patient also complains of being fatigued. Patient states she so weak she doesn't feel like she can barely get around. Patient denies any chest pain palpitations difficulty breathing or shortness of breath. Patient states she still has a little swelling on the left side but nothing compared to what she had prior. Patient denies any fever or chills. Patient denies any sites of bleeding. Patient denies headache patient denies any numbness weakness. - Related Data Home Medications Medication Instructions Recorded Confirmed Ondansetron [Zofran ODT] 4 mg PO Q8HR PRN 08/30/18 02/03/19 Atorvastatin [Lipitor] 80 mg PO HS 01/28/19 02/03/19 Metoprolol Tartrate [Lopressor] 25 mg PO BID 02/03/19 02/03/19 levETIRAcetam [Keppra] 500 mg PO BID 02/03/19 02/03/19 Previous Rx's Medication Instructions Recorded Folic Acid 1 mg PO DAILY #30 tab 08/24/18 Pantoprazole Sodium [Protonix] 40 mg PO DAILY #30 tablet. 08/24/18 Megestrol [Megace] 400 mg PO DAILY #30 cup 09/01/18 Sennosides [Senna] 8.6 mg PO HS PRN #60 tablet 09/09/18 Magnesium Oxide [Mag-Ox] 400 mg PO TID #90 tab 10/26/18 fentaNYL 12MCG/HR PATCH [Duragesic 1 patch TRANSDERM Q72H #10 patch 10/26/18 12MCG/HR] oxyCODONE-APAP 10-325MG [Percocet 1 tab PO QID PRN 3 Days #12 tab 10/26/18 10-325 mg] Allergies Allergy/AdvReac Type Severity Reaction Status Date / Time Penicillins Allergy Unknown Verified 02/03/19 15:00 Childhood Review of Systems ROS Statement: Those systems with pertinent positive or pertinent negative responses have been documented in the HPI. ROS Other: All systems not noted in ROS Statement are negative. Past Medical History Past Medical History: Cancer, GERD/Reflux, Hyperlipidemia, Hypertension, Myocardial Infarction ([place]) Additional Past Medical History / Comment(s): BRAIN ANEURSYM, [place] 2012, LUNG CA diagnosed 2014, CARPAL TUNNEL RIGHT WRIST, throat CA dx apr 2018 Last Myocardial Infarction Date:: 04/30/2013 History of Any Multi-Drug Resistant Organisms: None Reported Past Surgical History: Heart Catheterization, Orthopedic Surgery, Tubal Ligation, Uterine Ablation Additional Past Surgical History / Comment(s): ANGIOPLASTY FOR BRAIN ANEURSYM, CARPEL TUNNEL RIGHT WRIST , and laparoscopy, PARTIAL RIGHT LUNG REMOVAL ,PTCA, Past Anesthesia/Blood Transfusion Reactions: No Reported Reaction Past Psychological History: Anxiety, Panic Disorder Smoking Status: Former smoker Past Alcohol Use History: None Reported Past Drug Use History: None Reported - Past Family History Mother Family Medical History: Cancer Father Family Medical History: Cancer General Exam - General Exam Comments Initial Comments: GENERAL: Patient is well-developed and well-nourished. Patient is nontoxic and well- hydrated and is in moderate distress. ENT: Neck is soft and supple. No significant lymphadenopathy is noted. Oropharynx is clear. Moist mucous membranes. Neck has full range of motion without eliciting any pain. EYES: The sclera were anicteric and conjunctiva were pink and moist. Extraocular movements were intact and pupils were equal round and reactive to light. Eyelids were unremarkable. PULMONARY: Unlabored respirations. Good breath sounds bilaterally. No audible rales rhonchi or wheezing was noted. CARDIOVASCULAR: There is a regular rate and rhythm without any murmurs gallops or rubs. ABDOMEN: Soft and nontender with normal bowel sounds. SKIN: Skin is clear with no lesions or rashes and otherwise unremarkable. NEUROLOGIC: Patient is alert and oriented x3. Cranial nerves II through XII are grossly intact. Motor and sensory are also intact. Normal speech, volume and content. Symmetrical smile. MUSCULOSKELETAL: Normal extremities with adequate strength and full range of motion. No lower extremity swelling or edema. No calf tenderness. Patient has significant tenderness along the left trapezius muscle patient indicates that this is same pain she came in for. LYMPHATICS: No significant lymphadenopathy is noted PSYCHIATRIC: Normal psychiatric evaluation. Limitations: no limitations Course Vital Signs 02/03/19 14:41 Temperature 98.6 F Pulse Rate 108 H Respiratory 20 Rate Blood Pressure 121/75 O2 Sat by Pulse 100 Oximetry Medical Decision Making - Medical Decision Making Patient felt a little better with some time but still felt considerably weaker than her baseline. I spoke with Dr. Koehler he was okay with keeping the patient's I admitted the patient EKG shows sinus tachycardia at 104 bpm TN interval 118 QRS is 80 QT interval 3:30 QTC is 433. Patient's EKG shows no ST segment elevation or depression or T wave abnormalities are noted. I spoke with Dr. Zakia Koehler agreed to admit the patient admitted the patient I wrote admitting orders. - Lab Data Result diagrams: 02/03/19 15:15 02/03/19 15:15 Lab Results 02/03/19 02/03/19 02/03/19 Range/Units 15:15 15:15 16:17 WBC 8.6 (3.8-10.6) k/uL RBC 3.22 L (3.80-5.40) m/uL Hgb 9.9 L (11.4-16.0) gm/dL Hct 30.6 L (34.0-46.0) % MCV 95.0 (80.0-100.0) fL MCH 30.7 (25.0-35.0) pg MCHC 32.3 (31.0-37.0) g/dL RDW 15.9 H (11.5-15.5) % Plt Count 50 L D (150-450) k/uL Neutrophils % 81 % Lymphocytes % 8 % Monocytes % 6 % Eosinophils % 4 % Basophils % 0 % Neutrophils # 7.0 (1.3-7.7) k/uL Lymphocytes # 0.7 L (1.0-4.8) k/uL Monocytes # 0.5 (0-1.0) k/uL Eosinophils # 0.3 (0-0.7) k/uL Basophils # 0.0 (0-0.2) k/uL Hypochromasia Slight Sodium 142 (137-145) mmol/L Potassium 3.7 (3.5-5.1) mmol/L Chloride 111 H (98-107) mmol/L Carbon Dioxide 21 L (22-30) mmol/L Anion Gap 10 mmol/L BUN 14 (7-17) mg/dL Creatinine 0.99 (0.52-1.04) mg/dL Est GFR (CKD-EPI)AfAm 77 (>60 ml/min/1.73 sqM) Est GFR (CKD-EPI)NonAf 66 (>60 ml/min/1.73 sqM) Glucose 128 H (74-99) mg/dL Calcium 9.7 (8.4-10.2) mg/dL Magnesium 1.9 (1.6-2.3) mg/dL Total Bilirubin 0.6 (0.2-1.3) mg/dL AST 38 H (14-36) U/L ALT 58 H (9-52) U/L Alkaline Phosphatase 105 (38-126) U/L Total Protein 6.9 (6.3-8.2) g/dL Albumin 3.8 (3.5-5.0) g/dL Urine Color Yellow Urine Appearance Cloudy H (Clear) Urine pH 6.5 (5.0-8.0) Ur Specific [place] 1.019 (1.001-1.035) Urine Protein 1+ H (Negative) Urine Glucose (UA) Negative (Negative) Urine Ketones Negative (Negative) Urine Blood Small H (Negative) Urine Nitrite Negative (Negative) Urine Bilirubin Negative (Negative) Urine Urobilinogen 3.0 (<2.0) mg/dL Ur Leukocyte Esterase Moderate H (Negative) Urine RBC 7 H (0-5) /hpf Urine WBC 29 H (0-5) /hpf Ur Squamous Epith Cells 5 H (0-4) /hpf Urine Mucus Occasional H (None) /hpf Disposition Clinical Impression: Weakness, Trapezius muscle strain Disposition: ADMITTED IP TO THIS HOSP Referrals: Latisha Ziegler MD [Primary Care Provider] - 1-2 days Time of Disposition: 16:26
[2019-02-03 15:32] LABS: Basophils % (A) 0 %; Eosinophils # (A) 0.3 k/uL (0-0.7); Eosinophils % (A) 4 %; HCT 30.6 % (34.0-46.0); HGB 9.9 gm/dL (11.4-16.0); Hypochromasia Slight; Lymphocytes # (A) 0.7 k/uL (1.0-4.8); Lymphocytes % (A) 8 %; MCH 30.7 pg (25.0-35.0); MCHC 32.3 g/dL (31.0-37.0); Monocytes # (A) 0.5 k/uL (0-1.0); Monocytes % (A) 6 %; Neutrophils % (A) 81 %; RBC 3.22 m/uL (3.80-5.40); RDW 15.9 % (11.5-15.5); WBC 8.6 k/uL (3.8-10.6)
[2019-02-03 15:38] LABS: Platelet Count 50 k/uL (150-450)
[2019-02-03 16:05] LABS: Albumin 3.8 g/dL (3.5-5.0); Calcium 9.7 mg/dL (8.4-10.2); Magnesium 1.9 mg/dL (1.6-2.3); Potassium 3.7 mmol/L (3.5-5.1); Total Bilirubin 0.6 mg/dL (0.2-1.3); Total Protein 6.9 g/dL (6.3-8.2)
[2019-02-03] MEDS ORDERED: SODIUM CHLORIDE 0.9% 1,000 ML IV ONE (16:36)
[2019-02-03 16:37] LABS: Appearance,Urine Cloudy (Clear); Bilirubin,Urine Negative (Negative); Blood,Urine Small (Negative); Color,Urine Yellow; Glucose,Urine (UA) Negative (Negative); Ketones,Urine Negative (Negative); Leukocyte Esterase,Urine Moderate (Negative); Mucus,Urine Occasional /hpf; Nitrite,Urine Negative (Negative); PH, Urine 6.5 (5.0-8.0); Protein,Urine 1+ (Negative); RBC,Urine 7 /hpf (0-5); Specific Gravity,Urine 1.019 (1.001-1.035); Squamous Epithelial Cell,Urine 5 /hpf (0-4)
[2019-02-03] MEDS ORDERED: DIAZEPAM 5 MG/ML 2 ML INJ IVP PRN (16:39)
[2019-02-03] MEDS ORDERED: SENNOSIDES 8.6 MG TAB PO PRN (21:09)
[2019-02-03] MEDS ORDERED: ATORVASTATIN 80 MG TAB PO SCH (21:15)
[2019-02-03] MEDS: METOPROLOL TARTRATE 25 MG TAB PO SCH (21:30)
[2019-02-03] MEDS: oxyCODONE-APAP 10-325MG 1 EACH TAB PO PRN (21:30)
[2019-02-03] MEDS: levETIRAcetam 500 MG TAB PO SCH (21:41)
[2019-02-04] MEDS: oxyCODONE-APAP 10-325MG 1 EACH TAB PO PRN ×2 (01:58→09:36)
[2019-02-04 02:26] VITALS: BP 96/59
[2019-02-04] MEDS ORDERED: FOLIC ACID 1 MG TAB PO SCH (09:00)
[2019-02-04] MEDS ORDERED: PANTOPRAZOLE 40 MG TABLET PO SCH (09:00)
[2019-02-04] MEDS ORDERED: MAGNESIUM OXIDE 400 MG TAB PO SCH (09:00)
[2019-02-04] MEDS ORDERED: MEGESTROL 400 MG/10 ML CUP PO SCH (09:00)
[2019-02-04] MEDS: METOPROLOL TARTRATE 25 MG TAB PO SCH (09:36)
[2019-02-04] MEDS: levETIRAcetam 500 MG TAB PO SCH (09:36)
[2019-02-04 10:33] VITALS: PULSE 107; RESP 16
[2019-02-04 10:35] VITALS: TEMP 96.7
[2019-02-04 12:37] LABS: D-Dimer 31.59 mg/L FEU (<0.60); INR 1.2 (<1.2); Partial Thromboplastin Time 26.1 sec (22.0-30.0); Prothrombin Time 12.1 sec (9.0-12.0)
--- NOTE | 2019-02-10 11:13 | P.HPIM ---
History of Present Illness H&P Date: 02/03/19 Chief Complaint: Left neck pain Patient is a 53-year-old female with a known history of metastatic lung cancer, recently diagnosed subarachnoid hemorrhage-was transferred to [facility], released from the hospital yesterday and thrombocytopenia and other multiple medical problems came to ER with complaints of left-sided neck pain and shoulder pain. Pain is mainly in the left trapezius muscle and sore to touch, worsens with any movement. Patient denied any complaints of fever or chills. No cough or sputum production. No chest pain. Patient felt so weak and and fatigue. Does not feel like moving around at home. No shortness of breath. No palpitations. No pleuritic chest pain. Pain is reproducible with palpation. No headache or dizziness or lightheadedness. Denied any focal weakness. Denied any hematemesis or melena. No skin rash. EKG showed sinus tachycardia. Platelets 50,000, hemoglobin 9.9 and WBC 8.6 Slightly elevated liver enzymes. Elevated LDH. Review of Systems Constitutional: Patient denies any fever or chills . Otherwise weakness and fatigue. Abdomen: Patient denied nausea vomiting and diarrhea and abdominal pain. Cardiovascular: Patient denies any chest pain or short of breath no palpitations. Respiratory: patient denied any cough is from production. No shortness of vik th Neurologic: Patient denied any numbness or tingling headache. Musculoskeletal: Patient denies any complaints of joint swelling or deformity. Left shoulder pain. Skin: Negative Psychiatric: Negative Endocrine: No heat or cold intolerance. No recent weight gain. Genitourinary: No dysuria or hematuria. All other 14 point ROS negative except the above Past Medical History Past Medical History: Cancer, GERD/Reflux, Hyperlipidemia, Hypertension, Myocardial Infarction (DC) Additional Past Medical History / Comment(s): BRAIN ANEURSYM, DC 2012, LUNG CA diagnosed 2014, CARPAL TUNNEL RIGHT WRIST, throat CA dx apr 2018 Last Myocardial Infarction Date:: 04/30/2013 History of Any Multi-Drug Resistant Organisms: None Reported Past Surgical History: Heart Catheterization, Orthopedic Surgery, Tubal Ligation, Uterine Ablation Additional Past Surgical History / Comment(s): ANGIOPLASTY FOR BRAIN ANEURSYM, CARPEL TUNNEL RIGHT WRIST , and laparoscopy, PARTIAL RIGHT LUNG REMOVAL ,PTCA, Past Anesthesia/Blood Transfusion Reactions: No Reported Reaction Past Psychological History: Anxiety, Panic Disorder Smoking Status: Former smoker Past Alcohol Use History: None Reported Past Drug Use History: None Reported - Past Family History Mother Family Medical History: Cancer Father Family Medical History: Cancer Medications and Allergies Home Medications Medication Instructions Recorded Confirmed Type Folic Acid 1 mg PO DAILY #30 tab 08/24/18 02/09/19 Rx Pantoprazole Sodium [Protonix] 40 mg PO DAILY #30 tablet. 08/24/18 02/09/19 Rx Ondansetron [Zofran ODT] 4 mg PO Q8HR PRN 08/30/18 02/09/19 History Megestrol [Megace] 400 mg PO DAILY #30 cup 09/01/18 02/09/19 Rx Sennosides [Senna] 8.6 mg PO HS PRN #60 tablet 09/09/18 02/09/19 Rx Magnesium Oxide [Mag-Ox] 400 mg PO TID #90 tab 10/26/18 02/09/19 Rx fentaNYL 12MCG/HR PATCH [Duragesic 1 patch TRANSDERM Q72H #10 patch 10/26/18 02/09/19 Rx 12MCG/HR] oxyCODONE-APAP 10-325MG [Percocet 1 tab PO QID PRN 3 Days #12 tab 10/26/18 02/09/19 Rx 10-325 mg] Atorvastatin [Lipitor] 80 mg PO HS 01/28/19 02/09/19 History Metoprolol Tartrate [Lopressor] 25 mg PO BID 02/03/19 02/09/19 History levETIRAcetam [Keppra] 500 mg PO BID 02/03/19 02/09/19 History Allergies Allergy/AdvReac Type Severity Reaction Status Date / Time Penicillins Allergy Unknown Verified 02/09/19 11:17 Childhood Physical Exam Vitals: Vital Signs Temp Pulse Resp BP Pulse Ox 02/03/19 17:00 98.6 F 93 20 118/70 100 02/03/19 14:41 98.6 F 108 H 20 121/75 100 Intake and Output 02/03/19 02/03/19 02/03/19 06:59 14:59 22:59 Other: Weight 67.585 kg PHYSICAL EXAMINATION: Patient is lying in the bed comfortably, mild distress, awake alert and oriented.. HEENT: Normocephalic. Neck is supple. Pupils reactive. Nostrils clear. Oral cavity is moist. Ears reveal no drainage. Neck reveals no JVD, carotid bruits, or thyromegaly. CHEST EXAMINATION: Trachea is central. Symmetrical expansion. Bibasilar diminished air entry. Lung cano clear to auscultation and percussion. CARDIAC: Normal S1, S2 with no gallops. No murmurs ABDOMEN: Soft. Bowel sounds normal. No organomegaly. No abdominal bruits. Extremities: reveal no edema. No clubbing or cyanosis Neurologically awake, alert, oriented x3 with well-coordinated movements. No focal deficits noted Skin: No rash or skin lesions. Psychiatric: Coperative. Nonsuicidal Musculoskeletal: No joint swelling or deformity. Normal range of motion. Patient does have tenderness over the left trapezius muscle. No open wounds no fluid collection noted. No warmth or redness. Results CBC & Chem 7: 02/03/19 15:15 02/03/19 15:15 Labs: Abnormal Lab Results - Last 24 Hours (Table) 02/03/19 02/03/19 02/03/19 Range/Units 15:15 15:15 16:17 RBC 3.22 L (3.80-5.40) m/uL Hgb 9.9 L (11.4-16.0) gm/dL Hct 30.6 L (34.0-46.0) % RDW 15.9 H (11.5-15.5) % Plt Count 50 L D (150-450) k/uL Lymphocytes # 0.7 L (1.0-4.8) k/uL Chloride 111 H (98-107) mmol/L Carbon Dioxide 21 L (22-30) mmol/L Glucose 128 H (74-99) mg/dL AST 38 H (14-36) U/L ALT 58 H (9-52) U/L Urine Appearance Cloudy H (Clear) Urine Protein 1+ H (Negative) Urine Blood Small H (Negative) Ur Leukocyte Esterase Moderate H (Negative) Urine RBC 7 H (0-5) /hpf Urine WBC 29 H (0-5) /hpf Ur Squamous Epith Cells 5 H (0-4) /hpf Urine Mucus Occasional H (None) /hpf Thrombosis Risk Factor Assmnt - DVT/VTE Prophylaxis DVT/VTE Prophylaxis: Pharmacologic Prophylaxis ordered Assessment and Plan Assessment: Left-sided Trapezius muscle tenderness. Likely musculoskeletal origin Recent subarachnoid hemorrhage. Aspirin and anticoagulation on hold. Metastatic lung cancer Thrombocytopenia. Etiology unknown. Currently being worked up by hematology as an outpatient. History of DC GERD Hypertension Hyperlipidemia History of throat cancer diagnosed in April 2018 Anxiety and panic disorder Previous history of smoking History of brain aneurysm status post angioplasty DVT prophylaxis with SCDs Plan: Patient will be continued on IV hydration, pain management with fentanyl patch and Percocet as per home regimen. Continue with home medications and follow closely. Continue to monitor H&H and platelets. Hematology was consulted. Further recommendations based on the clinical course. Prognosis poor with multiple medical problems and, conditions and metastatic cancer. Discussed with her daughter and patient at bedside in detail. Time with Patient: Greater than 30
--- NOTE | 2019-02-10 11:15 | P.DS ---
Providers Date of admission: 02/03/19 16:37 Expected date of discharge: 02/04/19 Attending physician: Annabella Koehler Consults: 02/04/19 10:49 Consult Physician Routine Consulting Provider: Miguel Fatima Consult Reason/Comments: Thrombocytopenia Do you want consulting provider notified?: Yes Primary care physician: Latisha [facility] Course: Discharge diagnosis Left-sided Trapezius muscle tenderness. Likely musculoskeletal origin Recent subarachnoid hemorrhage. Aspirin and anticoagulation on hold. Metastatic lung cancer Thrombocytopenia. Etiology unknown. Currently being worked up by hematology as an outpatient. History of SD GERD Hypertension Hyperlipidemia History of throat cancer diagnosed in April 2018 Anxiety and panic disorder Previous history of smoking History of brain aneurysm status post angioplasty DVT prophylaxis with SCDs Hospital course Patient is a 53-year-old female with a known history of metastatic lung cancer, recently diagnosed subarachnoid hemorrhage-was transferred to [facility], released from the hospital yesterday and thrombocytopenia and other multiple medical problems came to ER with complaints of left-sided neck pain and shoulder pain. Pain is mainly in the left trapezius muscle and sore to touch, worsens with any movement. Patient denied any complaints of fever or chills. No cough or sputum production. No chest pain. Patient felt so weak and and fatigue. Does not feel like moving around at home. No shortness of breath. No palpitations. No pleuritic chest pain. Pain is reproducible with palpation. No headache or dizziness or lightheadedness. Denied any focal weakness. Denied any hematemesis or melena. No skin rash. EKG showed sinus tachycardia. Platelets 50,000, hemoglobin 9.9 and WBC 8.6 Slightly elevated liver enzymes. Elevated LDH. Patient was continued on IV hydration and pain management with Percocet and fentanyl patch. Oncology was consulted. No hematemesis or melena no active bleeding currently. Patient left againest Medical advice. Plan - Discharge Summary Discharge Rx Participant: Yes New Discharge Prescriptions: No Action Pantoprazole Sodium [Protonix] 40 mg PO DAILY #30 tablet. Folic Acid 1 mg PO DAILY #30 tab Ondansetron [Zofran ODT] 4 mg PO Q8HR PRN PRN Reason: Nausea Megestrol [Megace] 400 mg PO DAILY #30 cup Sennosides [Senna] 8.6 mg PO HS PRN #60 tablet PRN Reason: Constipation fentaNYL 12MCG/HR PATCH [Duragesic 12MCG/HR] 1 patch TRANSDERM Q72H #10 patch Magnesium Oxide [Mag-Ox] 400 mg PO TID #90 tab oxyCODONE-APAP 10-325MG [Percocet 10-325 mg] 1 tab PO QID PRN 3 Days #12 tab PRN Reason: Pain Atorvastatin [Lipitor] 80 mg PO HS levETIRAcetam [Keppra] 500 mg PO BID Metoprolol Tartrate [Lopressor] 25 mg PO BID Discharge Medication List Folic Acid 1 mg PO DAILY #30 tab 08/24/18 [Rx] Pantoprazole Sodium [Protonix] 40 mg PO DAILY #30 tablet. 08/24/18 [Rx] Ondansetron [Zofran ODT] 4 mg PO Q8HR PRN 08/30/18 [History] Megestrol [Megace] 400 mg PO DAILY #30 cup 09/01/18 [Rx] Sennosides [Senna] 8.6 mg PO HS PRN #60 tablet 09/09/18 [Rx] Magnesium Oxide [Mag-Ox] 400 mg PO TID #90 tab 10/26/18 [Rx] fentaNYL 12MCG/HR PATCH [Duragesic 12MCG/HR] 1 patch TRANSDERM Q72H #10 patch 10/26/18 [Rx] oxyCODONE-APAP 10-325MG [Percocet 10-325 mg] 1 tab PO QID PRN 3 Days #12 tab 10/26/18 [Rx] Atorvastatin [Lipitor] 80 mg PO HS 01/28/19 [History] Metoprolol Tartrate [Lopressor] 25 mg PO BID 02/03/19 [History] levETIRAcetam [Keppra] 500 mg PO BID 02/03/19 [History] Follow up Appointment(s)/Referral(s): [facility], [NON-STAFF] - 1-2 Days Latisha Ziegler MD [Primary Care Provider] - 1-2 days Discharge Disposition: Left Against Medical Advice
== END 2019-02-04 13:33 | disposition left against medical advice (07) ==
LOC: EC 14:28 → 4MS4W 16:37 → 4SSUR 17:04
PROVIDERS: ADMIT Internal Medicine; ATTEND Internal Medicine
DX: M79.18 Myalgia, other site (principal); R53.1 Weakness; R53.83 Other fatigue; R22.1 Localized swelling, mass and lump, neck; R74.0 Nonspecific elevation of levels of transaminase and lactic acid dehydrogenase [LDH]; R74.8 Abnormal levels of other serum enzymes; I60.9 Nontraumatic subarachnoid hemorrhage, unspecified; D69.6 Thrombocytopenia, unspecified; K21.9 Gastro-esophageal reflux disease without esophagitis; I25.2 Old myocardial infarction; I10 Essential (primary) hypertension; E78.5 Hyperlipidemia, unspecified; F41.0 Panic disorder [episodic paroxysmal anxiety]; Z79.899 Other long term (current) drug therapy; Z87.891 Personal history of nicotine dependence; Z85.819 Personal history of malignant neoplasm of unspecified site of lip, oral cavity, and pharynx; Z85.118 Personal history of other malignant neoplasm of bronchus and lung; Z88.0 Allergy status to penicillin; Z90.2 Acquired absence of lung [part of]; Z98.61 Coronary angioplasty status; Z98.62 Peripheral vascular angioplasty status; Z80.9 Family history of malignant neoplasm, unspecified; Z53.21 Procedure and treatment not carried out due to patient leaving prior to being seen by health care provider
CPT/HCPCS: 96374; 96375; 99285; 36415; 93005; 85379; 80053; 83615; 83735; 85025; 85384; 85610; 85730; 81001; 87086; G0378 ×2; J3360; J2405; S0179; J1170

== ENCOUNTER 2019-02-09 10:47 | Inpatient (IN) | payer OTHER ==
[2019-02-09] MEDS ORDERED: HYDROmorphone 1 MG/ML 1 ML SYRINGE IVP STA (11:14)
[2019-02-09] MEDS ORDERED: SODIUM CHLORIDE 0.9% 1,000 ML IV STA (11:14)
--- NOTE | 2019-02-09 11:20 | ED ---
General Adult HPI - General Chief complaint: Weakness Stated complaint: leg/weakness pain post cva Time Seen by Provider: 02/09/19 11:04 Source: patient, family, RN notes reviewed Mode of arrival: wheelchair Limitations: no limitations - History of Present Illness Initial comments: Patient is a pleasant 53-year-old female presenting to the emergency department with concern for pain and weakness. Patient has known metastatic lung cancer. Last treatment was October. Patient did have a small area of hemorrhage in her brain last week with associated thrombocytopenia. No intervention was needed at that time. Patient symptoms started 4-5 days ago. Symptoms have progressively worsened since that time. Patient does admit to having a mild ache in her lower back however feels somewhat similar throughout her body. Patient has had nausea and decreased appetite and decreased oral intake. Patient feels thirsty. Patient denies confusion. Patient feels like her legs are somewhat weaker than her arms. Patient has limited ability to walk to the restroom. Patient states her upper extremity scale week as well and weakness is actually more diffuse. Patient did have some blurry vision earlier. - Related Data Home Medications Medication Instructions Recorded Confirmed Ondansetron [Zofran ODT] 4 mg PO Q8HR PRN 08/30/18 02/09/19 Atorvastatin [Lipitor] 80 mg PO HS 01/28/19 02/09/19 Metoprolol Tartrate [Lopressor] 25 mg PO BID 02/03/19 02/09/19 levETIRAcetam [Keppra] 500 mg PO BID 02/03/19 02/09/19 Previous Rx's Medication Instructions Recorded Folic Acid 1 mg PO DAILY #30 tab 08/24/18 Pantoprazole Sodium [Protonix] 40 mg PO DAILY #30 tablet. 08/24/18 Megestrol [Megace] 400 mg PO DAILY #30 cup 09/01/18 Sennosides [Senna] 8.6 mg PO HS PRN #60 tablet 09/09/18 Magnesium Oxide [Mag-Ox] 400 mg PO TID #90 tab 10/26/18 fentaNYL 12MCG/HR PATCH [Duragesic 1 patch TRANSDERM Q72H #10 patch 10/26/18 12MCG/HR] oxyCODONE-APAP 10-325MG [Percocet 1 tab PO QID PRN 3 Days #12 tab 10/26/18 10-325 mg] Allergies Allergy/AdvReac Type Severity Reaction Status Date / Time Penicillins Allergy Unknown Verified 02/09/19 11:17 Childhood Review of Systems ROS Statement: Those systems with pertinent positive or pertinent negative responses have been documented in the HPI. ROS Other: All systems not noted in ROS Statement are negative. Constitutional: Denies: fever Eyes: Denies: eye pain ENT: Denies: ear pain Respiratory: Denies: cough Cardiovascular: Denies: chest pain Endocrine: Reports: fatigue Gastrointestinal: Denies: abdominal pain Genitourinary: Denies: dysuria Musculoskeletal: Reports: as per HPI Skin: Denies: rash Neurological: Reports: as per HPI. Denies: headache, confusion Past Medical History Past Medical History: Cancer, CVA/TIA, GERD/Reflux, Hyperlipidemia, Hypertension, Myocardial Infarction ([place]) Additional Past Medical History / Comment(s): BRAIN ANEURSYM, [place] 2012, LUNG CA diagnosed 2014, CARPAL TUNNEL RIGHT WRIST, throat CA dx apr 2018 Last Myocardial Infarction Date:: 04/30/2013 History of Any Multi-Drug Resistant Organisms: None Reported Past Surgical History: Heart Catheterization, Orthopedic Surgery, Tubal Ligation, Uterine Ablation Additional Past Surgical History / Comment(s): ANGIOPLASTY FOR BRAIN ANEURSYM, CARPEL TUNNEL RIGHT WRIST , and laparoscopy, PARTIAL RIGHT LUNG REMOVAL ,PTCA, Past Anesthesia/Blood Transfusion Reactions: No Reported Reaction Past Psychological History: Anxiety, Panic Disorder Smoking Status: Former smoker Past Alcohol Use History: None Reported Past Drug Use History: None Reported - Past Family History Mother Family Medical History: Cancer Father Family Medical History: Cancer General Exam Limitations: no limitations General appearance: alert, in no apparent distress Head exam: Present: normocephalic Eye exam: Present: normal appearance, PERRL, EOMI Expanded Posterior chamber: Normal Inspection: Bilateral ENT exam: Present: normal oropharynx Neck exam: Present: normal inspection Respiratory exam: Present: normal lung sounds bilaterally Cardiovascular Exam: Present: regular rate, normal rhythm GI/Abdominal exam: Present: soft. Absent: tenderness Extremities exam: Present: normal inspection. Absent: pedal edema, calf tenderness Neurological exam: Present: alert, oriented X3, CN II-XII intact. Absent: motor sensory deficit Expanded Neurological exam: Present: protecting the airway Speech: Present: fluid speech Motor strength exam: RUE: 5, LUE: 5, RLE: 5, LLE: 5 Eye Response: (4) open spontaneously Motor Response: (6) obeys commands Verbal Response: (5) oriented Psychiatric exam: Present: normal affect, normal mood Skin exam: Present: normal color Course Vital Signs 02/09/19 02/09/19 02/09/19 10:52 11:05 13:22 Temperature 99.2 F 98.6 F Pulse Rate 105 H 100 94 Respiratory 22 18 18 Rate Blood Pressure 110/56 93/57 O2 Sat by Pulse 100 100 99 Oximetry 02/09/19 14:33 Temperature Pulse Rate 94 Respiratory 18 Rate Blood Pressure 97/62 O2 Sat by Pulse 96 Oximetry EKG Findings - EKG Comments: EKG Findings:: Normal sinus rhythm 100. LA 120. QRS 78. QT 3:30. QTC 425. Normal axis. Normal QRS. No acute ST change. Medical Decision Making - Medical Decision Making Patient reevaluated and resting comfortably in bed. Case was discussed in detail with Dr. Choudhary, covering for Dr. Carmen Denise, who will admit. Patient does meet sepsis criteria diagnosed at 1442. Culture and lactic acid and antibiotics will be ordered. - Lab Data Result diagrams: 02/09/19 11:25 02/09/19 11:25 Lab Results 02/09/19 02/09/19 02/09/19 Range/Units 11:25 11:25 11:25 WBC 12.3 H (3.8-10.6) k/uL RBC 2.97 L (3.80-5.40) m/uL Hgb 9.0 L (11.4-16.0) gm/dL Hct 27.5 L (34.0-46.0) % MCV 92.5 (80.0-100.0) fL MCH 30.3 (25.0-35.0) pg MCHC 32.7 (31.0-37.0) g/dL RDW 15.9 H (11.5-15.5) % Plt Count 41 L (150-450) k/uL Neutrophils % 83 % Lymphocytes % 8 % Monocytes % 5 % Eosinophils % 3 % Basophils % 0 % Neutrophils # 10.1 H (1.3-7.7) k/uL Lymphocytes # 1.0 (1.0-4.8) k/uL Monocytes # 0.7 (0-1.0) k/uL Eosinophils # 0.3 (0-0.7) k/uL Basophils # 0.0 (0-0.2) k/uL Manual Slide Review Performed Polychromasia Present Hypochromasia Moderate Poikilocytosis Slight Anisocytosis (manual) Present PT 12.9 H (9.0-12.0) sec INR 1.3 H (<1.2) APTT 29.2 (22.0-30.0) sec Sodium 139 (137-145) mmol/L Potassium 4.1 (3.5-5.1) mmol/L Chloride 111 H (98-107) mmol/L Carbon Dioxide 19 L (22-30) mmol/L Anion Gap 9 mmol/L BUN 11 (7-17) mg/dL Creatinine 0.92 (0.52-1.04) mg/dL Est GFR (CKD-EPI)AfAm 84 (>60 ml/min/1.73 sqM) Est GFR (CKD-EPI)NonAf 73 (>60 ml/min/1.73 sqM) Glucose 102 H (74-99) mg/dL Calcium 9.3 (8.4-10.2) mg/dL Phosphorus 3.4 (2.5-4.5) mg/dL Magnesium 2.1 (1.6-2.3) mg/dL Total Bilirubin 0.5 (0.2-1.3) mg/dL AST 35 (14-36) U/L ALT 31 (9-52) U/L Alkaline Phosphatase 106 (38-126) U/L Creatine Kinase 59 (30-135) U/L Total Protein 6.9 (6.3-8.2) g/dL Albumin 3.6 (3.5-5.0) g/dL TSH 4.670 (0.465-4.680) mIU/L Free T4 1.45 (0.78-2.19) ng/dL Free T3 pg/mL 3.1 (2.8-5.3) pg/ml Urine Color Urine Appearance (Clear) Urine pH (5.0-8.0) Ur Specific [place] (1.001-1.035) Urine Protein (Negative) Urine Glucose (UA) (Negative) Urine Ketones (Negative) Urine Blood (Negative) Urine Nitrite (Negative) Urine Bilirubin (Negative) Urine Urobilinogen (<2.0) mg/dL Ur Leukocyte Esterase (Negative) Urine RBC (0-5) /hpf Urine WBC (0-5) /hpf Ur Squamous Epith Cells (0-4) /hpf Urine Bacteria (None) /hpf Urine Mucus (None) /hpf 02/09/19 Range/Units 13:32 WBC (3.8-10.6) k/uL RBC (3.80-5.40) m/uL Hgb (11.4-16.0) gm/dL Hct (34.0-46.0) % MCV (80.0-100.0) fL MCH (25.0-35.0) pg MCHC (31.0-37.0) g/dL RDW (11.5-15.5) % Plt Count (150-450) k/uL Neutrophils % % Lymphocytes % % Monocytes % % Eosinophils % % Basophils % % Neutrophils # (1.3-7.7) k/uL Lymphocytes # (1.0-4.8) k/uL Monocytes # (0-1.0) k/uL Eosinophils # (0-0.7) k/uL Basophils # (0-0.2) k/uL Manual Slide Review Polychromasia Hypochromasia Poikilocytosis Anisocytosis (manual) PT (9.0-12.0) sec INR (<1.2) APTT (22.0-30.0) sec Sodium (137-145) mmol/L Potassium (3.5-5.1) mmol/L Chloride (98-107) mmol/L Carbon Dioxide (22-30) mmol/L Anion Gap mmol/L BUN (7-17) mg/dL Creatinine (0.52-1.04) mg/dL Est GFR (CKD-EPI)AfAm (>60 ml/min/1.73 sqM) Est GFR (CKD-EPI)NonAf (>60 ml/min/1.73 sqM) Glucose (74-99) mg/dL Calcium (8.4-10.2) mg/dL Phosphorus (2.5-4.5) mg/dL Magnesium (1.6-2.3) mg/dL Total Bilirubin (0.2-1.3) mg/dL AST (14-36) U/L ALT (9-52) U/L Alkaline Phosphatase (38-126) U/L Creatine Kinase (30-135) U/L Total Protein (6.3-8.2) g/dL Albumin (3.5-5.0) g/dL TSH (0.465-4.680) mIU/L Free T4 (0.78-2.19) ng/dL Free T3 pg/mL (2.8-5.3) pg/ml Urine Color Yellow Urine Appearance Cloudy H (Clear) Urine pH 6.5 (5.0-8.0) Ur Specific [place] 1.024 (1.001-1.035) Urine Protein 2+ H (Negative) Urine Glucose (UA) Negative (Negative) Urine Ketones Negative (Negative) Urine Blood Negative (Negative) Urine Nitrite Negative (Negative) Urine Bilirubin Negative (Negative) Urine Urobilinogen 2.0 (<2.0) mg/dL Ur Leukocyte Esterase Moderate H (Negative) Urine RBC 3 (0-5) /hpf Urine WBC 44 H (0-5) /hpf Ur Squamous Epith Cells 12 H (0-4) /hpf Urine Bacteria Rare H (None) /hpf Urine Mucus Occasional H (None) /hpf - Radiology Data Radiology results: report reviewed (Computed tomography scan of the brain shows resolution of left posterior subarachnoid bleed. There may be a minor degree of focal swelling. Postoperative changes. No acute intercranial abdomen Hasmukh.), image reviewed (Chest x-ray: Cannot rule out tiny right effusion.) Critical Care Time Critical Care Time: Yes Total Critical Care Time: 32 Disposition Clinical Impression: Urinary tract infection, Sepsis Disposition: ADMITTED IP TO THIS HOSP Is patient prescribed a controlled substance at d/c from ED?: No Referrals: Latisha Ziegler MD [Primary Care Provider] - 1-2 days Decision Time: 14:43
[2019-02-09 11:54] LABS: Basophils % (A) 0 %; Eosinophils # (A) 0.3 k/uL (0-0.7); Eosinophils % (A) 3 %; HCT 27.5 % (34.0-46.0); Hypochromasia Moderate; Lymphocytes % (A) 8 %; MCH 30.3 pg (25.0-35.0); MCHC 32.7 g/dL (31.0-37.0); MCV 92.5 fL (80.0-100.0); Monocytes # (A) 0.7 k/uL (0-1.0); Monocytes % (A) 5 %; Neutrophils # (A) 10.1 k/uL (1.3-7.7); Neutrophils % (A) 83 %; Poikilocytosis Slight; RBC 2.97 m/uL (3.80-5.40); RDW 15.9 % (11.5-15.5); WBC 12.3 k/uL (3.8-10.6)
[2019-02-09 12:02] LABS: Albumin 3.6 g/dL (3.5-5.0); Calcium 9.3 mg/dL (8.4-10.2); Magnesium 2.1 mg/dL (1.6-2.3); Phosphorus 3.4 mg/dL (2.5-4.5); Potassium 4.1 mmol/L (3.5-5.1); Total Bilirubin 0.5 mg/dL (0.2-1.3); Total Protein 6.9 g/dL (6.3-8.2)
[2019-02-09 12:07] LABS: INR 1.3 (<1.2); Partial Thromboplastin Time 29.2 sec (22.0-30.0); Prothrombin Time 12.9 sec (9.0-12.0)
[2019-02-09 12:17] LABS: T4, Free (Free Thyroxine) 1.45 ng/dL (0.78-2.19)
[2019-02-09 12:34] LABS: Anisocytosis (M) Present; Polychromasia Present
[2019-02-09 12:35] LABS: Platelet Count 41 k/uL (150-450)
--- NOTE | 2019-02-09 12:39 | CT ---
EXAMINATION TYPE: CT brain wo con DATE OF EXAM: 02/09/2019 COMPARISON: Previous study dated 01/28/2019. HISTORY: Weakness. CT DLP: 1114.4 mGycm Automated exposure control for dose reduction was used. FINDINGS: The posterior subarachnoid lesion has resorbed. Central structures are midline. There is no evidence of hydrocephalus. No acute focal lesion, mass ef fect or midline shift is seen. I do not see evidence of intracranial blood at this time. There is been a previous occipital craniotomy. Visualized portions of the paranasal sinuses and masto ids are clear. IMPRESSION: 1. RESOLUTION OF THE PATIENT'S LEFT POSTERIOR SUBARACHNOID BLEED. THERE MAY BE A MINOR DEGREE OF FOCA L SWELLING IN THIS REGION. 2. EVIDENCE OF PREVIOUS SURGERY. 4. NO ACUTE INTRACRANIAL ABNORMALITY.
--- NOTE | 2019-02-09 12:40 | XR ---
EXAMINATION TYPE: XR chest 2V DATE OF EXAM: 02/09/2019 HISTORY: Weakness. REFERENCE: Previous study dated 11/05/2018. FINDINGS: There is a MediPort in place via a right internal jugular approach. Tip is in the superior vena cava. The lungs are clear. There is minor blunting of the right CP angle.. Heart size upper limits of uma l IMPRESSION: I CANNOT EXCLUDE A SMALL RIGHT EFFUSION.
[2019-02-09 14:17] LABS: Appearance,Urine Cloudy (Clear); Bacteria,Urine Rare /hpf; Bilirubin,Urine Negative (Negative); Blood,Urine Negative (Negative); Color,Urine Yellow; Glucose,Urine (UA) Negative (Negative); Ketones,Urine Negative (Negative); Leukocyte Esterase,Urine Moderate (Negative); Mucus,Urine Occasional /hpf; Nitrite,Urine Negative (Negative); PH, Urine 6.5 (5.0-8.0); Protein,Urine 2+ (Negative); RBC,Urine 3 /hpf (0-5); Specific Gravity,Urine 1.024 (1.001-1.035); Squamous Epithelial Cell,Urine 12 /hpf (0-4); WBC,Urine 44 /hpf (0-5)
[2019-02-09] MEDS ORDERED: NALOXONE 0.4 MG/ML 1 ML VIAL IV PRN (14:44)
[2019-02-09] MEDS ORDERED: ONDANSETRON ODT 4 MG TAB PO PRN (17:50)
[2019-02-09] MEDS ORDERED: SENNOSIDES 8.6 MG TAB PO PRN (17:50)
[2019-02-09] MEDS ORDERED: SODIUM CHLORIDE 0.9% 500 ML 500 ML IV ONE ×2 (17:51→20:49)
[2019-02-09] MEDS: SODIUM CHLORIDE 0.9% 1,000 ML IV SCH ×2 (18:00→22:00)
[2019-02-09] MEDS: oxyCODONE-APAP 10-325MG 1 EACH TAB PO PRN (19:27)
[2019-02-09] MEDS ORDERED: PREGABALIN 50 MG CAP PO PRN (20:50)
--- NOTE | 2019-02-09 20:50 | US ---
EXAMINATION TYPE: US venous doppler duplex LE DATE OF EXAM: 02/09/2019 2:35 PM COMPARISON: US 2019 CLINICAL HISTORY: Rule out DVT. Bilateral leg pain SIDE PERFORMED: Bilateral TECHNIQUE: The lower extremity deep venous system is examined utilizing real time linear array sonog mercedes with graded compression, doppler sonography and color-flow sonography. VESSELS IMAGED: External Iliac Vein (EIV) Common Femoral Vein Deep Femoral Vein Greater Saphenous Vein * Femoral Vein Popliteal Vein Small Saphenous Vein * Proximal Calf Veins (* superficial vessels) Right Leg: Appears negative for DVT Left Leg: Appears negative for DVT IMPRESSION: 1. Bilateral lower extremity ultrasound negative for deep venous thrombosis.
--- NOTE | 2019-02-09 20:54 | P.HPIM ---
History of Present Illness This is a pleasant 53 years old female with past medical history of GERD, hyperlipidemia, hypertension, coronary artery disease, CVA/TIA, lung cancer diagnosed in 2014, history of pulmonary embolism . history of adenocarcinoma of the lung, status post lobectomy, on 04/2018 patient was diagnosed with stage laryngeal cancer, treated with radiation therapy. On 07/2018, patient was found to have liver lesions and omental masses and pelvic masses and found to have recurrent adenocarcinoma of her lung. On that time patient was found to have pulmonary embolism and she was placed on anticoagulation with some evidence of bleeding per vagina going on. Last week patient found to have small area of hemorrhage in the brain associated with thrombocytopenia, no intervention needed. Who presents because of fever. Patient also was complaining of from pain in her both legs and feet for about 3-4 days, patient says there was severe and preventing her from standing up, pain is continuous and any specific with no associated rash. Patient also denies headache. No chest pain or dyspnea. No abdominal pain. No change in urine or bowel habits. Also patient stating decreased appetite. Patient is mildly tachycardic at 105, she has low grade temperature of 99.2, blood pressure on the low side 93/57. Left showing leukocytosis of 12.3 K, hemoglobin 9, INR is 1.3, creatinine 0.9. Chest x-ray showed clear lungs. CAT scan of the brain: No evidence of acute intracranial process, however showing previous occipital craniotomy performed resolution of the left posterior subarachnoid bleed. EKG showing normal sinus rhythm at 100 UA is suspicious for infection In the emergency room patient was started on normal saline at 125 L/h Review of Systems CONSTITUTIONAL: No fever, no malaise, no fatigue. HEENT: No recent visual problems or hearing problems. Denied any sore throat. CARDIOVASCULAR: No orthopnea, PND, no palpitations, no syncope. PULMONARY: No shortness of breath, no cough, no hemoptysis. GASTROINTESTINAL: No diarrhea, no nausea, no vomiting, no abdominal pain. Normoactive bowel sounds. NEUROLOGICAL: No headaches, no weakness, no numbness. HEMATOLOGICAL: Denies any bleeding or petechiae. GENITOURINARY: Denies any burning micturition, frequency, or urgency. MUSCULOSKELETAL/RHEUMATOLOGICAL: Denies any joint pain, swelling, or any muscle pain. ENDOCRINE: Denies any polyuria or polydipsia. Past Medical History Past Medical History: Cancer, CVA/TIA, GERD/Reflux, Hyperlipidemia, Hypertension, Myocardial Infarction ([place]) Additional Past Medical History / Comment(s): BRAIN ANEURSYM, [place] 2012, LUNG CA diagnosed 2014, CARPAL TUNNEL RIGHT WRIST, throat CA dx apr 2018 Last Myocardial Infarction Date:: 04/30/2013 History of Any Multi-Drug Resistant Organisms: None Reported Past Surgical History: Heart Catheterization, Orthopedic Surgery, Tubal Ligation, Uterine Ablation Additional Past Surgical History / Comment(s): ANGIOPLASTY FOR BRAIN ANEURSYM, CARPEL TUNNEL RIGHT WRIST , and laparoscopy, PARTIAL RIGHT LUNG REMOVAL ,PTCA, Past Anesthesia/Blood Transfusion Reactions: No Reported Reaction Past Psychological History: Anxiety, Panic Disorder Smoking Status: Former smoker Past Alcohol Use History: None Reported Past Drug Use History: None Reported - Past Family History Mother Family Medical History: Cancer Father Family Medical History: Cancer Medications and Allergies Home Medications Medication Instructions Recorded Confirmed Type Folic Acid 1 mg PO DAILY #30 tab 08/24/18 02/09/19 Rx Pantoprazole Sodium [Protonix] 40 mg PO DAILY #30 tablet. 08/24/18 02/09/19 Rx Ondansetron [Zofran ODT] 4 mg PO Q8HR PRN 08/30/18 02/09/19 History Megestrol [Megace] 400 mg PO DAILY #30 cup 09/01/18 02/09/19 Rx Sennosides [Senna] 8.6 mg PO HS PRN #60 tablet 09/09/18 02/09/19 Rx Magnesium Oxide [Mag-Ox] 400 mg PO TID #90 tab 10/26/18 02/09/19 Rx fentaNYL 12MCG/HR PATCH [Duragesic 1 patch TRANSDERM Q72H #10 patch 10/26/18 02/09/19 Rx 12MCG/HR] oxyCODONE-APAP 10-325MG [Percocet 1 tab PO QID PRN 3 Days #12 tab 10/26/18 02/09/19 Rx 10-325 mg] Atorvastatin [Lipitor] 80 mg PO HS 01/28/19 02/09/19 History Metoprolol Tartrate [Lopressor] 25 mg PO BID 02/03/19 02/09/19 History levETIRAcetam [Keppra] 500 mg PO BID 02/03/19 02/09/19 History Allergies Allergy/AdvReac Type Severity Reaction Status Date / Time Penicillins Allergy Unknown Verified 02/09/19 11:17 Childhood Physical Exam Vitals: Vital Signs Temp Pulse Resp BP Pulse Ox 02/09/19 13:22 98.6 F 94 18 93/57 99 02/09/19 11:05 100 18 110/56 100 02/09/19 10:52 99.2 F 105 H 22 100 Intake and Output 02/08/19 02/09/19 02/09/19 22:59 06:59 14:59 Other: Weight 64.864 kg GENERAL: The patient is alert and oriented x3, not in any acute distress. Well developed, well nourished. HEENT: Pupils are round and equally reacting to light. EOMI. No scleral icterus. No conjunctival pallor. Normocephalic, atraumatic. No pharyngeal erythema. No thyromegaly. CARDIOVASCULAR: S1 and S2 present. No murmurs, rubs, or gallops. PULMONARY: Chest is clear to auscultation, no wheezing or crackles. ABDOMEN: Soft, nontender, nondistended, normoactive bowel sounds. No palpable organomegaly. MUSCULOSKELETAL: No joint swelling or deformity. EXTREMITIES: No cyanosis, clubbing, or pedal edema. NEUROLOGICAL: Gross neurological examination did not reveal any focal deficits. SKIN: No rashes. No petechiae Results CBC & Chem 7: 02/09/19 11:25 02/09/19 11:25 Labs: Abnormal Lab Results - Last 24 Hours (Table) 02/09/19 02/09/19 02/09/19 Range/Units 11:25 11:25 11:25 WBC 12.3 H (3.8-10.6) k/uL RBC 2.97 L (3.80-5.40) m/uL Hgb 9.0 L (11.4-16.0) gm/dL Hct 27.5 L (34.0-46.0) % RDW 15.9 H (11.5-15.5) % Plt Count 41 L (150-450) k/uL Neutrophils # 10.1 H (1.3-7.7) k/uL PT 12.9 H (9.0-12.0) sec INR 1.3 H (<1.2) Chloride 111 H (98-107) mmol/L Carbon Dioxide 19 L (22-30) mmol/L Glucose 102 H (74-99) mg/dL Assessment and Plan Assessment: Acute urinary tract infection Systemic inflammatory response syndrome with leukocytosis of 12.3 K, and tachycardia Possible Sepsis secondary to above Bilateral leg pain Recent history of brain hemorrhage associated with thrombocytopenia, one week prior to admission History of lung cancer since 2014, with metastasis to the liver and omental masses pelvic masses History of laryngeal cancer History of pulmonary embolism History of coronary artery disease Hypertension Hyperlipidemia GERD History of CVA/TIA Plan: This is a pleasant 53 years old female who presents with sepsis, rule out urinary tract infection. Continue with antibiotics. Consult infectious disease. Consult oncology team. Check Doppler of the lower extremity Labs and medication were reviewed.. Continue same treatment. Continue with symptomatic treatment. Resume home medication. Monitor lytes and vitals. DVT and GI prophylaxis. Further recommendations of the clinical course of the patient DVT prophylaxis: no heparin in view of recent cerebral hemorrhage GI Prophylaxis: Pepcid PT/OT: Pending Prognosis is guarded
[2019-02-09] MEDS: MAGNESIUM OXIDE 400 MG TAB PO SCH (21:16)
[2019-02-09] MEDS: levETIRAcetam 500 MG TAB PO SCH (21:16)
[2019-02-09] MEDS: ATORVASTATIN 80 MG TAB PO SCH (21:16)
[2019-02-09] MEDS ORDERED: SODIUM CHLORIDE 0.9% 1,000 ML IV ONE (23:11)
[2019-02-10] MEDS ORDERED: SODIUM CHLORIDE 0.9% 500 ML 500 ML IV ONE (00:59)
[2019-02-10 05:26] LABS: Basophils % (A) 0 %; Eosinophils # (A) 0.2 k/uL (0-0.7); Eosinophils % (A) 3 %; HCT 21.3 % (34.0-46.0); Hypochromasia Marked; Lymphocytes # (A) 0.7 k/uL (1.0-4.8); Lymphocytes % (A) 8 %; MCH 30.2 pg (25.0-35.0); MCHC 32.4 g/dL (31.0-37.0); MCV 93.2 fL (80.0-100.0); Mean Platelet Volume 9.9; Monocytes # (A) 0.5 k/uL (0-1.0); Monocytes % (A) 7 %; Neutrophils # (A) 6.3 k/uL (1.3-7.7); Neutrophils % (A) 81 %; Poikilocytosis Slight; RBC 2.28 m/uL (3.80-5.40); RDW 15.9 % (11.5-15.5); WBC 7.8 k/uL (3.8-10.6)
[2019-02-10 05:27] LABS: African American GFR (CKD) >90 (>60 ml/min/1.73 sqM); Anion Gap 5 mmol/L; Blood Urea Nitrogen 7 mg/dL (7-17); Calcium 7.5 mg/dL (8.4-10.2); Carbon Dioxide 18 mmol/L (22-30); Chloride 118 mmol/L (98-107); Glucose 76 mg/dL (74-99); Potassium 3.6 mmol/L (3.5-5.1); Sodium 141 mmol/L (137-145)
[2019-02-10 05:29] LABS: Platelet Count 30 k/uL (150-450)
[2019-02-10 05:31] LABS: HGB 6.9 gm/dL (11.4-16.0)
--- NOTE | 2019-02-10 06:02 | P.CNPUL ---
History of Present Illness Consult date: 02/10/19 Chief complaint: weakness and hypotension. History of present illness: This is a 53-year-old female patient got transferred to the intensive care unit because of hypotension. On the floor, the patient was running at a lower blood pressure and for that reason was requested for this patient to get transferred to the ICU. She has a previous history of metastatic adenocarcinoma of the lung. She was diagnosed back in 2016. In fact I did her original transbronchial biopsy for a right lower lobe mass that was measuring 2.8 x 2.4 x 2 cm in size. The biopsy was positive for poorly differentiated adenocarcinoma, EGFR and ROS 1 negative. The patient underwent a right lower lobe resection that was done at [facility]. Following that the patient received adjuvant chemotherapy with a combination of cisplatin and and Alimta was jt mmended. However, the patient decided not to go through with treatment. He was monitored and she developed recurrent disease with metastases. This developed in July 2018. She was also diagnosed having an early stage laryngeal cancer that was treated with radiation therapy. Note that in July 2018 the patient presented with a pelvic mass and liver lesions as well as omental mass. Biopsies at that time from the liver and gastric fluid analysis came back positive for adenocarcinoma. The PD1 was strongly positive. The patient was started on a combination of carboplatinum, Alimta and Keytruda and she received several cycles. The patient also is known to have coronary artery disease, hypertension and hyperlipidemia and previous history of CVA and previous history of pulmonary embolism. The patient last week was also found to have a small area of hemorrhage in her brain was treated with thrombocytopenia and no intervention was needed. At that time she was referred to [facility] where she underwent further investigation. She was taken off anticoagulation. Her platelet counts remain low and during this current admission the platelet count was initially at 41. The rest of the coagulation profile was within normal limits. She came to the hospital because of fever. She was complaining of pain in her lower extremities for the past 3-4 days. She had difficulties and standing up and her weakness had gotten significantly worse and the patient also developed significant diminishment in her appetite. No chest pain. No abdominal pain. No changes in bowel or urine habits. The patient was tachycardic at time of admission with a heart rate of 105. She had a low grade temperature of 99.2. Her blood pressure was in 0 57. White cell count was at 12.3 and hemoglobin was at 9 with an INR of 1.3 and a creatinine of 0.9. CAT scan of the brain showed no evidence of any acute intracranial process and there was no evidence of any acute bleeding. The patient was suspected to have UTI. She was started on antibiotics and she is currently taking Rocephin 1 g every 24 hours. She is also on normal saline at the rate of 150 mL an hour. Her most recent blood pressure 94/61 the patient did not require any pressors. Current pulse ox is 99% on room air. The venous Doppler of the lower extremities are negative for DVT. Upon subsequent following, the hemoglobin from this morning came down at 6.9. The patient reported some black stools. No clear evidence of any upper or lower GI bleed however. He has already received a total of 2 L of IV fluids. The serum bicarbs at 18. Renal function is stable. No respiratory difficulties she is currently on room air oxygen. No cough or sputum production. Most recent CAT scan of the chest that was done on 01/28/2019 showed emphysema. There was moderate degree of emphysema. There is also no mediastinal lymphaden opathy. 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 The patient is not taking any systemic chemotherapy or immunotherapy for the time being. Review of Systems Constitutional: Reports daytime sleepiness, Reports fatigue, Reports poor appetite, Reports weakness Eyes: denies as per HPI, denies blurred vision, denies bulging eye, denies decreased vision, denies diplopia, denies discharge, denies dry eye, denies irritation, denies itching, denies pain, denies photophobia, denies loss of peripheral vision, denies loss of vision, denies tunnel vision/blind spots Ears: deny: decreased hearing, ear discharge, earache, tinnitus Ears, nose, mouth and throat: Denies headache, Denies sore throat Breasts: absent: as per HPI, change in shape, gynecomastia, masses, nipple discharge, pain, skin changes, swelling Cardiovascular: Reports decreased exercise tolerance, Reports dyspnea on exertion, Reports shortness of breath Respiratory: Reports dyspnea Gastrointestinal: Denies abdominal pain, Denies diarrhea, Denies nausea, Denies vomiting Genitourinary: Denies dysuria, Denies hematuria Menstruation: Reports as per HPI Musculoskeletal: Reports muscle weakness, Reports myalgias Musculoskeletal: absent: ankle pain, ankle stiffness, ankle swelling Integumentary: Denies pruritus, Denies rash Neurological: Reports as per HPI, Reports weakness Psychiatric: Reports as per HPI Endocrine: Reports as per HPI, Reports fatigue Hematologic/Lymphatic: Reports as per HPI Past Medical History Past Medical History: Cancer, CVA/TIA, GERD/Reflux, Hyperlipidemia, Hypertension, Myocardial Infarction (OR) Additional Past Medical History / Comment(s): Stage IV metastatic lung cancer, adenocarcinoma, initially diagnosed back in 2016 and the patient has liver metastases. 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 Last Myocardial Infarction Date:: 04/30/2013 History of Any Multi-Drug Resistant Organisms: None Reported Past Surgical History: Heart Catheterization, Orthopedic Surgery, Tubal Ligation, Uterine Ablation Additional Past Surgical History / Comment(s): Right lower lobe resection for small cell lung cancer, angioplasty/stenting of a brain aneurysm, carpal tunnel release, laparoscopy and liver biopsy, paracentesis, Past Anesthesia/Blood Transfusion Reactions: No Reported Reaction Past Psychological History: Anxiety, Panic Disorder Smoking Status: Former smoker Past Alcohol Use History: None Reported Past Drug Use History: None Reported - Past Family History Mother Family Medical History: Cancer Father Family Medical History: Cancer Medications and Allergies Home Medications Medication Instructions Recorded Confirmed Type Folic Acid 1 mg PO DAILY #30 tab 08/24/18 02/09/19 Rx Pantoprazole Sodium [Protonix] 40 mg PO DAILY #30 tablet.dr 08/24/18 02/09/19 Rx Ondansetron [Zofran ODT] 4 mg PO Q8HR PRN 08/30/18 02/09/19 History Megestrol [Megace] 400 mg PO DAILY #30 cup 09/01/18 02/09/19 Rx Sennosides [Senna] 8.6 mg PO HS PRN #60 tablet 09/09/18 02/09/19 Rx Magnesium Oxide [Mag-Ox] 400 mg PO TID #90 tab 10/26/18 02/09/19 Rx fentaNYL 12MCG/HR PATCH [Duragesic 1 patch TRANSDERM Q72H #10 patch 10/26/18 02/09/19 Rx 12MCG/HR] oxyCODONE-APAP 10-325MG [Percocet 1 tab PO QID PRN 3 Days #12 tab 10/26/18 02/09/19 Rx 10-325 mg] Atorvastatin [Lipitor] 80 mg PO HS 01/28/19 02/09/19 History Metoprolol Tartrate [Lopressor] 25 mg PO BID 02/03/19 02/09/19 History levETIRAcetam [Keppra] 500 mg PO BID 02/03/19 02/09/19 History Allergies Allergy/AdvReac Type Severity Reaction Status Date / Time Penicillins Allergy Unknown Verified 02/09/19 11:17 Childhood Physical Exam Vitals: Vital Signs Temp Pulse Pulse Pulse Resp BP BP 02/10/19 01:58 105 H 18 02/10/19 00:45 98.5 F 100 19 02/09/19 22:50 106 H 93/61 02/09/19 22:07 108 H 02/09/19 22:00 100 02/09/19 21:05 98.7 F 109 H 19 02/09/19 16:25 89 18 02/09/19 16:19 98.9 F 89 18 02/09/19 15:19 96 18 104/76 02/09/19 14:33 94 18 97/62 02/09/19 13:22 98.6 F 94 18 93/57 02/09/19 11:05 100 18 110/56 02/09/19 10:52 99.2 F 105 H 22 BP BP BP Pulse Ox 02/10/19 01:58 94/61 100 02/10/19 00:45 92/48 88/52 100 02/09/19 22:50 82/58 78/60 99 02/09/19 22:07 87/60 02/09/19 22:00 89/59 02/09/19 21:05 95/65 99 02/09/19 16:25 02/09/19 16:19 95/69 100 02/09/19 15:19 99 02/09/19 14:33 96 02/09/19 13:22 99 02/09/19 11:05 100 02/09/19 10:52 100 Intake and Output 02/09/19 02/09/19 02/10/19 14:59 22:59 06:59 Intake Total 2240 Balance 2240 Intake: Intake, IV Titration 2000 Amount Sodium Chloride 0.9% 1, 500 000 ml @ 126 mls/hr IV . Q7H57M [facility] Rx#:[id number] Sodium Chloride 0.9% 1, 1000 000 ml @ 999 mls/hr IV . Q1H1M [facility] Rx#:[id number] Sodium Chloride 0.9% 500 500 ml 500 ml @ 999 mls/hr IV .Q31M [facility] Rx#:[id number] Oral 240 Other: Voiding Method Bedside Commode # Voids 2 Weight 64.864 kg Gen. appearance, comfortable likely distress. Currently on room air oxygen. Head exam was generally normal. There was no scleral icterus or corneal arcus. Mucous membranes were moist. Neck was supple and without jugular venous distension, thyromegaly, or carotid bruits. Carotids were easily palpable bilaterally. There was no adenopathy. Lungs sounds are diminished yet they're clear. Breath sounds equal and sym metrical. The patient has a Mediport over the anterior chest area and the exit site is dry clean and intact. Cardiac exam revealed the PMI to be normally situated and sized. The rhythm was regular and no extrasystoles were noted during several minutes of auscultation. The first and second heart sounds were normal and physiologic splitting of the second heart sound was noted. There were no murmurs, rubs, clicks, or gallops. The patient is slightly tachycardic. Abdominal exam revealed normal bowel sounds. The abdomen was soft, non-tender, and without masses, organomegaly, or appreciable enlargement of the abdominal aorta. Examination of the extremities revealed easily palpable radial, femoral and pedal pulses. There was no cyanosis, clubbing or edema. Examination of the skin revealed no evidence of significant rashes, suspicious appearing nevi or other concerning lesions. Neurologically awake and alert and there is no focal neurological deficit. Generalized motor weakness specially in lower extremities. Cranial nerves are intact. Results - Laboratory Findings CBC and BMP: 02/10/19 05:00 02/10/19 05:00 PT/INR, D-dimer PT 12.9 sec (9.0-12.0) H 02/09/19 11:25 INR 1.3 (<1.2) H 02/09/19 11:25 Abnormal lab findings: Abnormal Labs 02/09/19 02/09/19 02/09/19 11:25 11:25 11:25 WBC 12.3 H RBC 2.97 L Hgb 9.0 L Hct 27.5 L RDW 15.9 H Plt Count 41 L Neutrophils # 10.1 H Lymphocytes # PT 12.9 H INR 1.3 H Chloride 111 H Carbon Dioxide 19 L Glucose 102 H Calcium Urine Appearance Urine Protein Ur Leukocyte Esterase Urine WBC Ur Squamous Epith Cells Urine Bacteria Urine Mucus 02/09/19 02/10/19 02/10/19 13:32 05:00 05:00 WBC RBC 2.28 L Hgb 6.9 L* D Hct 21.3 L RDW 15.9 H Plt Count 30 L Neutrophils # Lymphocytes # 0.7 L PT INR Chloride 118 H Carbon Dioxide 18 L Glucose Calcium 7.5 L Urine Appearance Cloudy H Urine Protein 2+ H Ur Leukocyte Esterase Moderate H Urine WBC 44 H Ur Squamous Epith Cells 12 H Urine Bacteria Rare H Urine Mucus Occasional H - Diagnostic Findings Chest x-ray: image reviewed Assessment and Plan Plan: 1 hypotension for which the patient got transferred to the intensive care unit and this is being further investigated. Exact cause is not clear. Consider bleeding possibly a GI bleed as the patient's hemoglobin dropped from 9 down to 6.9. Note that the patient also is thrombocytopenic and this will be an excellent set up for bleeding. Other possibilities could be infection of a urinary source and the patient was empirically covered with IV Rocephin. The patient was already given a total of 2 L of IV fluids. No pressors for now. 2 stage IV metastatic adenocarcinoma of the lung post right lower lobe resection, post systemic chemotherapy utilizing a combination of carboplatinum and Alimta and Keytruda and the patient has been off treatment since October 2018 3 small right-sided pleural effusion 4 COPD currently inactive in stable 5 subarachnoid bleeding attributed to thrombocytopenia and anticoagulation. The patient is currently off Eliquis and the plated count is 30 this morning. The CAT scan of the brain showed resolution of the previously described subarachnoid bleeding and she does not have any acute neurological deficits. 6 chronic recurrent almost cytopenia 7 positive HITantibodies 8 her metastases secondary to metastatic lung cancer 9J cancer postradiation therapy 10 coronary artery disease 11 hypertension 12 hyperlipidemia 13 remote history of pulmonary embolism currently off anticoagulation and the patient has negative Doppler of the lower extremities Plan We'll monitor the blood pressure in the ICU. We'll continue monitoring the hemoglobin. I am concerned of an occult GI bleeding. We'll give the patient a unit of packed RBC and will monitor the hemoglobin and also monitor the platelet count. Continue IV Rocephin for now. Continue IV fluid in the form of normal saline at the rate of 100 mL an hour. Monitor the platelet count. Transfuse with platelets the counts drop below 30. Avoid using any form of heparin or heparin related products. Consult hematology oncology. She has a preserved LV function based on echocardiogram that was done in August 2018. Most recent CAT scan of the chest that was done in October 2089 was also noted. We'll continue to follow.
[2019-02-10] MEDS: SODIUM CHLORIDE 0.9% 1,000 ML IV SCH ×3 (07:28→23:24)
[2019-02-10] MEDS: PANTOPRAZOLE 40 MG TABLET PO SCH (07:28)
[2019-02-10] MEDS: FOLIC ACID 1 MG TAB PO SCH (08:55)
[2019-02-10] MEDS: MAGNESIUM OXIDE 400 MG TAB PO SCH ×3 (08:56→21:23)
[2019-02-10] MEDS: levETIRAcetam 500 MG TAB PO SCH ×2 (08:56→21:23)
[2019-02-10] MEDS ORDERED: GABAPENTIN 100 MG CAP PO STA (10:33)
[2019-02-10] MEDS: GABAPENTIN 100 MG CAP PO SCH ×3 (10:51→21:23)
--- NOTE | 2019-02-10 13:30 | P.PN ---
Subjective This is a pleasant 53 years old female with past medical history of GERD, hyperlipidemia, hypertension, coronary artery disease, CVA/TIA, lung cancer diagnosed in 2014, history of pulmonary embolism . history of adenocarcinoma of the lung, status post lobectomy, on 04/2018 patient was diagnosed with stage laryngeal cancer, treated with radiation therapy. On 07/2018, patient was found to have liver lesions and omental masses and pelvic masses and found to have recurrent adenocarcinoma of her lung. On that time patient was found to have pulmonary embolism and she was placed on anticoagulation with some evidence of bleeding per vagina going on. Last week patient found to have small area of hemorrhage in the brain associated with thrombocytopenia, no intervention needed. Who presents because of fever. Patient also was complaining of from pain in her both legs and feet for about 3-4 days, patient says there was severe and preventing her from standing up, pain is continuous and any specific with no associated rash. Patient also denies headache. No chest pain or dyspnea. No abdominal pain. No change in urine or bowel habits. Also patient stating decreased appetite. Patient is mildly tachycardic at 105, she has low grade temperature of 99.2, blood pressure on the low side 93/57. Left showing leukocytosis of 12.3 K, hemoglobin 9, INR is 1.3, creatinine 0.9. Chest x-ray showed clear lungs. CAT scan of the brain: No evidence of acute intracranial process, however showing previous occipital craniotomy performed resolution of the left posterior subarachnoid bleed. EKG showing normal sinus rhythm at 100 UA is suspicious for infection In the emergency room patient was started on normal saline at 125 L/h 02/10/2019 Patient was hypotensive overnight and she was transferred to the ICU, she received several boluses of normal saline and her blood pressure get corrected and improved today is 135/90, she still tachycardic with heart rate of 111. Her hemoglobin dropped today from 9 down to 6.9, patient received 1 unit of blood transfusion, her that she is back to normal 7.8K, platelets dropped from 41 down to 30. Rest of BMP is unremarkable with creatinine 0.7, liver enzymes within normal. Patient still complaining from significant leg pain and gabapentin this started, pulmonary/critical care input is appreciated. Were going to do anemia workup. Doppler of the lower extremities negative for DVT Objective - Vital Signs Vital signs: Vital Signs Temp 99.0 F 02/10/19 11:05 Pulse 111 H 02/10/19 11:05 Resp 15 02/10/19 11:05 BP 135/90 02/10/19 11:05 Pulse Ox 96 02/10/19 11:05 Intake & Output 02/09/19 02/10/19 02/10/19 18:59 06:59 18:59 Intake Total 2640 819 Output Total 400 700 Balance 2240 119 Weight 64.864 kg Intake: IV 400 200 Sodium Chloride 0.9% 1, 400 200 000 ml @ 150 mls/hr IV . Q6H40M REPLACED BY [facility] Rx#:[id number] Intake, IV Titration 2000 Amount Sodium Chloride 0.9% 1, 500 000 ml @ 150 mls/hr IV . Q6H40M REPLACED BY [facility] Rx#:[id number] Sodium Chloride 0.9% 1, 1000 000 ml @ 999 mls/hr IV . Q1H1M ONE Rx#:[id number] Sodium Chloride 0.9% 500 500 ml 500 ml @ 999 mls/hr IV .Q31M ONE Rx#:[id number] Oral 240 Blood Product 619 Rc Pheresis 2 As3 Unit 310 [id number] Output: Urine 400 700 Other: Voiding Method Bedside Commode # Voids 2 - Exam GENERAL: The patient is alert and oriented x3, not in any acute distress. Well developed, well nourished. HEENT: Pupils are round and equally reacting to light. EOMI. No scleral icterus. No conjunctival pallor. Normocephalic, atraumatic. No pharyngeal erythema. No th yromegaly. CARDIOVASCULAR: S1 and S2 present. No murmurs, rubs, or gallops. PULMONARY: Chest is clear to auscultation, no wheezing or crackles. ABDOMEN: Soft, nontender, nondistended, normoactive bowel sounds. No palpable organomegaly. MUSCULOSKELETAL: No joint swelling or deformity. EXTREMITIES: No cyanosis, clubbing, or pedal edema. Bilateral lower extremity tenderness NEUROLOGICAL: Gross neurological examination did not reveal any focal deficits. SKIN: No rashes. No petechiae - Labs CBC & Chem 7: 02/10/19 05:00 02/10/19 05:00 Labs: Abnormal Lab Results - Last 24 Hours (Table) 02/09/19 02/10/19 02/10/19 Range/Units 13:32 05:00 05:00 RBC 2.28 L (3.80-5.40) m/uL Hgb 6.9 L* D (11.4-16.0) gm/dL Hct 21.3 L (34.0-46.0) % RDW 15.9 H (11.5-15.5) % Plt Count 30 L (150-450) k/uL Lymphocytes # 0.7 L (1.0-4.8) k/uL Chloride 118 H (98-107) mmol/L Carbon Dioxide 18 L (22-30) mmol/L Calcium 7.5 L (8.4-10.2) mg/dL Urine Appearance Cloudy H (Clear) Urine Protein 2+ H (Negative) Ur Leukocyte Esterase Moderate H (Negative) Urine WBC 44 H (0-5) /hpf Ur Squamous Epith Cells 12 H (0-4) /hpf Urine Bacteria Rare H (None) /hpf Urine Mucus Occasional H (None) /hpf Crossmatch 02/10/19 Range/Units 06:10 RBC (3.80-5.40) m/uL Hgb (11.4-16.0) gm/dL Hct (34.0-46.0) % RDW (11.5-15.5) % Plt Count (150-450) k/uL Lymphocytes # (1.0-4.8) k/uL Chloride (98-107) mmol/L Carbon Dioxide (22-30) mmol/L Calcium (8.4-10.2) mg/dL Urine Appearance (Clear) Urine Protein (Negative) Ur Leukocyte Esterase (Negative) Urine WBC (0-5) /hpf Ur Squamous Epith Cells (0-4) /hpf Urine Bacteria (None) /hpf Urine Mucus (None) /hpf Crossmatch See Detail Microbiology - Last 24 Hours (Table) 02/09/19 13:32 Urine Culture - Preliminary Urine,Voided Assessment and Plan Assessment: Acute anemia, status post blood transfusion Acute urinary tract infection Systemic inflammatory response syndrome with leukocytosis of 12.3 K, and tachycardia Possible Sepsis secondary to above Bilateral leg pain, Doppler is negative for DVT. Possible peripheral neuropathy Recent history of brain hemorrhage associated with thrombocytopenia, one week prior to admission History of lung cancer since 2014, with metastasis to the liver and omental masses pelvic masses History of laryngeal cancer History of pulmonary embolism History of coronary artery disease Hypertension Hyperlipidemia GERD History of CVA/TIA Plan: This is a pleasant 53 years old female who presents with sepsis, rule out urinary tract infection. Continue with antibiotics. Consult infectious disease. Consult oncology team. Anemia workup, monitor hemoglobin and platelet count Labs and medication were reviewed.. Continue same treatment. Continue with symptomatic treatment. Resume home medication. Monitor lytes and vitals. DVT and GI prophylaxis. Further recommendations of the clinical course of the patient DVT prophylaxis: no heparin in view of recent cerebral hemorrhage, also thrombocytopenia GI Prophylaxis: Pepcid PT/OT: Pending Prognosis is guarded
[2019-02-10 14:45] LABS: Anisocytosis Slight; HCT 26.3 % (34.0-46.0); HGB 8.8 gm/dL (11.4-16.0); Hypochromasia Moderate; MCH 29.9 pg (25.0-35.0); MCHC 33.3 g/dL (31.0-37.0); MCV 89.8 fL (80.0-100.0); Mean Platelet Volume 10.3; Poikilocytosis Slight; RBC 2.93 m/uL (3.80-5.40); RDW 16.2 % (11.5-15.5); WBC 9.2 k/uL (3.8-10.6)
[2019-02-10 14:46] LABS: Platelet Count 34 k/uL (150-450)
[2019-02-10] MEDS: oxyCODONE-APAP 10-325MG 1 EACH TAB PO PRN (21:22)
[2019-02-10] MEDS: ATORVASTATIN 80 MG TAB PO SCH (21:23)
--- NOTE | 2019-02-10 22:46 | P.CONS ---
History of Present Illness - Reason for Consult Consult date: 02/10/19 Sepsis Requesting physician: Anurag Kumar - Chief Complaint weakness x few days - History of Present Illness Patient is a 53-year-old -[place] female with a past medical history significant for metastatic adenocarcinoma of the lung patient status post right lobectomy and also have received chemotherapy last chemo has been in October 2018 through the right chest wall Mediport and currently off chemo for almost 3 months now patient presented to [facility] for evaluation of generalized weakness symptom has been going on for about 4 days before presented to the hospital patient also complaining of some sore throat but no other URI symptoms patient denies any worsening cough or sputum production no nausea no vomiting no abdominal pain no diarrhea patient on arrival to the ER has been afebrile she was slightly tachycardic and hypotensive requiring multiple fluid boluses patient did have elevated white count of 12,000 UA was slightly positive with moderate leukocyte esterase and 44 WBC with the urine culture currently pending patient did have a CT of the brain with no bleed patient did have a chest x-ray cannot exclude small right pleural effusion with concern for UTI the patient was started on Rocephin she has to be admitted to the ICU because of hypotension requiring multiple fluid boluses and subsequent stabilization of her blood pressure. Review of Systems CONSTITUTIONAL: Positive for weakness. denies high grade Fever EYES: No complaint. ENT:No complaint. RESPIRATORY: cough CARDIOVASCULAR: No complaint. GENITOURINARY: No complaint. GASTROINTESTINAL: No complaint. MUSCULOSKELETAL: No complaint. INTEGUMENTARY: No complaint. PSYCHOLOGICAL: No complaint. ENDOCRINE: No complaint. NEUROLOGIC: No complaint. Past Medical History Past Medical History: Cancer, CVA/TIA, GERD/Reflux, Hyperlipidemia, Hypertension, Myocardial Infarction (VT) Additional Past Medical History / Comment(s): Stage IV metastatic lung cancer, adenocarcinoma, initially diagnosed back in 2016 and the patient has liver metastases. 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 Last Myocardial Infarction Date:: 04/30/2013 History of Any Multi-Drug Resistant Organisms: None Reported Past Surgical History: Heart Catheterization, Orthopedic Surgery, Tubal Ligation, Uterine Ablation Additional Past Surgical History / Comment(s): Right lower lobe resection for small cell lung cancer, angioplasty/stenting of a brain aneurysm, carpal tunnel release, laparoscopy and liver biopsy, paracentesis, Past Anesthesia/Blood Transfusion Reactions: No Reported Reaction Past Psychological History: Anxiety, Panic Disorder Smoking Status: Former smoker Past Alcohol Use History: None Reported Past Drug Use History: None Reported - Past Family History Mother Family Medical History: Cancer Father Family Medical History: Cancer Medications and Allergies Home Medications Medication Instructions Recorded Confirmed Type Folic Acid 1 mg PO DAILY #30 tab 08/24/18 02/09/19 Rx Pantoprazole Sodium [Protonix] 40 mg PO DAILY #30 tablet. 08/24/18 02/09/19 Rx Ondansetron [Zofran ODT] 4 mg PO Q8HR PRN 08/30/18 02/09/19 History Megestrol [Megace] 400 mg PO DAILY #30 cup 09/01/18 02/09/19 Rx Sennosides [Senna] 8.6 mg PO HS PRN #60 tablet 09/09/18 02/09/19 Rx Magnesium Oxide [Mag-Ox] 400 mg PO TID #90 tab 10/26/18 02/09/19 Rx fentaNYL 12MCG/HR PATCH [Duragesic 1 patch TRANSDERM Q72H #10 patch 10/26/18 02/09/19 Rx 12MCG/HR] oxyCODONE-APAP 10-325MG [Percocet 1 tab PO QID PRN 3 Days #12 tab 10/26/18 02/09/19 Rx 10-325 mg] Atorvastatin [Lipitor] 80 mg PO HS 01/28/19 02/09/19 History Metoprolol Tartrate [Lopressor] 25 mg PO BID 02/03/19 02/09/19 History levETIRAcetam [Keppra] 500 mg PO BID 02/03/19 02/09/19 History Allergies Allergy/AdvReac Type Severity Reaction Status Date / Time Penicillins Allergy Unknown Verified 02/09/19 11:17 Childhood Physical Exam Vitals: Vital Signs Temp Pulse Pulse Pulse Resp BP BP 02/10/19 11:05 99.0 F 111 H 15 135/90 02/10/19 09:28 99.0 F 110 H 15 121/84 02/10/19 09:00 116 H 17 120/92 02/10/19 08:58 99.0 F 112 H 15 144/85 02/10/19 08:48 99.2 F 112 H 15 120/92 02/10/19 08:00 99.2 F 96 14 02/10/19 07:00 117 H 16 116/73 02/10/19 06:00 107 H 14 134/83 02/10/19 05:00 105 H 18 112/66 02/10/19 04:00 97.9 F 106 H 14 117/78 02/10/19 01:58 105 H 18 02/10/19 00:45 98.5 F 100 19 02/09/19 22:50 106 H 93/61 02/09/19 22:07 108 H 02/09/19 22:00 100 02/09/19 21:05 98.7 F 109 H 19 02/09/19 16:25 89 18 02/09/19 16:19 98.9 F 89 18 02/09/19 15:19 96 18 104/76 02/09/19 14:33 94 18 97/62 02/09/19 13:22 98.6 F 94 18 93/57 BP BP BP Pulse Ox 02/10/19 11:05 96 02/10/19 09:28 95 02/10/19 09:00 02/10/19 08:58 95 02/10/19 08:48 97 02/10/19 08:00 96 02/10/19 07:00 95 02/10/19 06:00 98 02/10/19 05:00 99 02/10/19 04:00 99 02/10/19 01:58 94/61 100 02/10/19 00:45 92/48 88/52 100 02/09/19 22:50 82/58 78/60 99 02/09/19 22:07 87/60 02/09/19 22:00 89/59 02/09/19 21:05 95/65 99 02/09/19 16:25 02/09/19 16:19 95/69 100 02/09/19 15:19 99 02/09/19 14:33 96 02/09/19 13:22 99 Intake and Output 02/09/19 02/10/19 02/10/19 22:59 06:59 14:59 Intake Total 2240 400 819 Output Total 400 700 Balance 2240 0 119 Intake: IV 400 200 Sodium Chloride 0.9% 1, 400 200 000 ml @ 150 mls/hr IV . Q6H40M [facility] Rx#:[id number] Intake, IV Titration 2000 Amount Sodium Chloride 0.9% 1, 500 000 ml @ 150 mls/hr IV . Q6H40M [facility] Rx#:[id number] Sodium Chloride 0.9% 1, 1000 000 ml @ 999 mls/hr IV . Q1H1M [facility] Rx#:[id number] Sodium Chloride 0.9% 500 500 ml 500 ml @ 999 mls/hr IV .Q31M [facility] Rx#:[id number] Oral 240 Blood Product 619 Rc Pheresis 2 As3 Unit 310 [id number] Output: Urine 400 700 Other: Voiding Method Bedside Commode # Voids 2 GENERAL DESCRIPTION: Middle-aged female lying in bed, no distress. No tachypnea or accessory muscle of respiration use. HEENT: Shows Pallor , no scleral icterus. Oral mucous membrane is dry. No pharyngeal erythema or thrush NECK: Trachea central, no thyromegaly. LUNGS: Unlabored breathing, decreased breath sounds at bases. No wheeze or crackle. HEART: S1, S2, regular rate and rhythm. No loud murmur ABDOMEN: Soft, no tenderness , guarding or rigidity, no organomegaly EXTREMITIES: No edema of feet. SKIN: No rash, no masses palpable. NEUROLOGICAL: The patient is awake, alert, oriented x3, mood and affect normal. Results CBC & Chem 7: 02/10/19 14:19 02/10/19 05:00 Labs: Abnormal Lab Results - Last 24 Hours (Table) 02/09/19 02/10/19 02/10/19 Range/Units 13:32 05:00 05:00 RBC 2.28 L (3.80-5.40) m/uL Hgb 6.9 L* D (11.4-16.0) gm/dL Hct 21.3 L (34.0-46.0) % RDW 15.9 H (11.5-15.5) % Plt Count 30 L (150-450) k/uL Lymphocytes # 0.7 L (1.0-4.8) k/uL Chloride 118 H (98-107) mmol/L Carbon Dioxide 18 L (22-30) mmol/L Calcium 7.5 L (8.4-10.2) mg/dL Urine Appearance Cloudy H (Clear) Urine Protein 2+ H (Negative) Ur Leukocyte Esterase Moderate H (Negative) Urine WBC 44 H (0-5) /hpf Ur Squamous Epith Cells 12 H (0-4) /hpf Urine Bacteria Rare H (None) /hpf Urine Mucus Occasional H (None) /hpf Crossmatch 02/10/19 Range/Units 06:10 RBC (3.80-5.40) m/uL Hgb (11.4-16.0) gm/dL Hct (34.0-46.0) % RDW (11.5-15.5) % Plt Count (150-450) k/uL Lymphocytes # (1.0-4.8) k/uL Chloride (98-107) mmol/L Carbon Dioxide (22-30) mmol/L Calcium (8.4-10.2) mg/dL Urine Appearance (Clear) Urine Protein (Negative) Ur Leukocyte Esterase (Negative) Urine WBC (0-5) /hpf Ur Squamous Epith Cells (0-4) /hpf Urine Bacteria (None) /hpf Urine Mucus (None) /hpf Crossmatch See Detail Microbiology - Last 24 Hours (Table) 02/09/19 13:32 Urine Culture - Preliminary Urine,Voided Assessment and Plan Assessment: patient presenting to the hospital with generalized weakness in this patient who did have a low-grade fever of 99 tachycardia and hypotension requiring multiple fluid boluses patient's chest x-ray did not show any consolidation abdominal soft and clinical examination UA has been mildly positive with concern for possible urinary tract infection likely of enteric gram-negative pathogen with a white count responded to the Rocephin possibly sensitive pathogen (1) Urinary tract infection Current Visit: Yes Status: Acute Code(s): N39.0 - URINARY TRACT INFECTION, SITE NOT SPECIFIED SNOMED Code(s): 81365848 Plan: 1-we will increase Rocephin to 2 g daily 2-IV fluids We will follow on clinical condition and cultures to further adjust medication if needed Thank you for this consultation will follow this patient along with you
[2019-02-11] MEDS: SODIUM CHLORIDE 0.9% 1,000 ML IV SCH ×2 (04:01→06:08)
[2019-02-11] MEDS: oxyCODONE-APAP 10-325MG 1 EACH TAB PO PRN ×2 (06:06→12:55)
[2019-02-11 07:07] LABS: Anisocytosis Slight; Basophils % (A) 0 %; Eosinophils # (A) 0.4 k/uL (0-0.7); Eosinophils % (A) 4 %; HCT 28.1 % (34.0-46.0); HGB 9.3 gm/dL (11.4-16.0); Hypochromasia Moderate; Lymphocytes # (A) 0.6 k/uL (1.0-4.8); Lymphocytes % (A) 7 %; MCHC 33.1 g/dL (31.0-37.0); MCV 90.6 fL (80.0-100.0); Mean Platelet Volume 9.2; Monocytes # (A) 0.5 k/uL (0-1.0); Monocytes % (A) 5 %; Neutrophils # (A) 7.6 k/uL (1.3-7.7); Neutrophils % (A) 82 %; Poikilocytosis Slight; RDW 16.1 % (11.5-15.5); WBC 9.2 k/uL (3.8-10.6)
[2019-02-11 07:09] LABS: Platelet Count 36 k/uL (150-450)
[2019-02-11 07:36] LABS: African American GFR (CKD) >90 (>60 ml/min/1.73 sqM); Anion Gap 7 mmol/L; Blood Urea Nitrogen 5 mg/dL (7-17); Calcium 8.9 mg/dL (8.4-10.2); Carbon Dioxide 19 mmol/L (22-30); Chloride 113 mmol/L (98-107); Glucose 77 mg/dL (74-99); Potassium 4.3 mmol/L (3.5-5.1); Sodium 139 mmol/L (137-145)
[2019-02-11] MEDS: levETIRAcetam 500 MG TAB PO SCH ×2 (08:20→20:52)
[2019-02-11] MEDS: PANTOPRAZOLE 40 MG TABLET PO SCH (08:20)
[2019-02-11] MEDS: GABAPENTIN 100 MG CAP PO SCH ×3 (08:20→20:52)
[2019-02-11] MEDS: FOLIC ACID 1 MG TAB PO SCH (08:20)
[2019-02-11] MEDS: MAGNESIUM OXIDE 400 MG TAB PO SCH ×3 (08:20→20:52)
[2019-02-11 10:03] LABS: Ferritin 241.2 ng/mL (10.0-291.0)
[2019-02-11 10:13] LABS: Iron Saturation 10.31 (12.00-45.00)
--- NOTE | 2019-02-11 12:01 | P.PN ---
Subjective This is a pleasant 53 years old female with past medical history of GERD, hyperlipidemia, hypertension, coronary artery disease, CVA/TIA, lung cancer diagnosed in 2014, history of pulmonary embolism . history of adenocarcinoma of the lung, status post lobectomy, on 04/2018 patient was diagnosed with stage laryngeal cancer, treated with radiation therapy. On 07/2018, patient was found to have liver lesions and omental masses and pelvic masses and found to have recurrent adenocarcinoma of her lung. On that time patient was found to have pulmonary embolism and she was placed on anticoagulation with some evidence of bleeding per vagina going on. Last week patient found to have small area of hemorrhage in the brain associated with thrombocytopenia, no intervention needed. Who presents because of fever. Patient also was complaining of from pain in her both legs and feet for about 3-4 days, patient says there was severe and preventing her from standing up, pain is continuous and any specific with no associated rash. Patient also denies headache. No chest pain or dyspnea. No abdominal pain. No change in urine or bowel habits. Also patient stating decreased appetite. Patient is mildly tachycardic at 105, she has low grade temperature of 99.2, blood pressure on the low side 93/57. Left showing leukocytosis of 12.3 K, hemoglobin 9, INR is 1.3, creatinine 0.9. Chest x-ray showed clear lungs. CAT scan of the brain: No evidence of acute intracranial process, however showing previous occipital craniotomy performed resolution of the left posterior subarachnoid bleed. EKG showing normal sinus rhythm at 100 UA is suspicious for infection In the emergency room patient was started on normal saline at 125 L/h 02/10/2019 Patient was hypotensive overnight and she was transferred to the ICU, she received several boluses of normal saline and her blood pressure get corrected and improved today is 135/90, she still tachycardic with heart rate of 111. Her hemoglobin dropped today from 9 down to 6.9, patient received 1 unit of blood transfusion, her that she is back to normal 7.8K, platelets dropped from 41 down to 30. Rest of BMP is unremarkable with creatinine 0.7, liver enzymes within normal. Patient still complaining from significant leg pain and gabapentin this started, pulmonary/critical care input is appreciated. Were going to do anemia workup. Doppler of the lower extremities negative for DVT 02/11/2019 Patient transferred to the general medical floor, her pain in her legs significantly improved, patient was started on Neurontin for her leg pain. Her blood pressure this morning is 108/79, heart rate is 59, patient had low-grade temperature yesterday of 99.0. Left showing stable hemoglobin at 9.3 after 1 unit of blood transfusion, patient is still thrombocytopenic and 36, creatinine is normal however aren't studies is suspicious for iron deficiency anemia, in combination with anemia of chronic disease which might be related to her cancer history or medical problems. Occult blood in his stool still pending. Patient states that she has regular bowel movement but is dark-colored, she denies abd ominal pain or nausea vomiting. We going to start iron pills. Infectious disease consult is appreciated, her Rocephin is interested 2 g daily. Review of systems CONSTITUTIONAL: No fever HEENT: No recent visual problems or hearing problems. Denied any sore throat. CARDIOVASCULAR: No orthopnea, PND, no palpitations, no syncope. PULMONARY: No shortness of breath, no cough, no hemoptysis. GASTROINTESTINAL: No diarrhea, no nausea, no vomiting, no abdominal pain. Normoactive bowel sounds. NEUROLOGICAL: No headaches, no weakness, no numbness. HEMATOLOGICAL: Denies any bleeding or petechiae. GENITOURINARY: Denies any burning micturition MUSCULOSKELETAL/RHEUMATOLOGICAL: Denies any joint pain, swelling, or any muscle pain. ENDOCRINE: Denies any polyuria or polydipsia. Active Medications Generic Name Dose Route Start Last Admin Trade Name Freq PRN Reason Stop Dose Admin Atorvastatin Calcium 80 mg 02/09/19 21:00 02/10/19 21:23 Lipitor PO 80 mg HS NAINA Administration Fentanyl 1 patch 02/09/19 18:00 02/09/19 19:22 Duragesic 12mcg/Hr Patch TRANSDERM Not Given Q72H NAINA Folic Acid 1 mg 02/10/19 09:00 02/11/19 08:20 Folic Acid PO 1 mg DAILY NAINA Administration Gabapentin 100 mg 02/10/19 16:00 02/11/19 08:20 Neurontin PO 100 mg TID NAINA Administration Sodium Chloride 1,000 mls @ 50 mls/hr 02/09/19 14:45 02/11/19 06:08 Saline 0.9% IV 50 mls/hr .Q20H NAINA Administration Ceftriaxone Sodium 2 gm/ 50 mls @ 100 mls/hr 02/10/19 21:00 02/10/19 21:23 Sodium Chloride IVPB 100 mls/hr Q24H NAINA Administration Levetiracetam 500 mg 02/09/19 21:00 02/11/19 08:20 Keppra PO 500 mg BID NAINA Administration Magnesium Oxide 400 mg 02/09/19 22:00 02/11/19 08:20 Mag-Ox PO 400 mg TID NAINA Administration Naloxone HCl 0.2 mg 02/09/19 14:44 Narcan IV Q2M PRN Opioid Reversal Ondansetron HCl 4 mg 02/09/19 17:50 Zofran Odt PO Q8HR PRN Nausea Oxycodone/Acetaminophen 1 each 02/09/19 17:50 02/11/19 06:06 Percocet 10-325 PO 1 each QID PRN Administration Pain Pantoprazole Sodium 40 mg 02/10/19 07:30 02/11/19 08:20 Protonix PO 40 mg AC-BRKFST NAINA Administration Senna 8.6 mg 02/09/19 17:50 Senokot PO HS PRN Constipation Objective - Vital Signs Vital signs: Vital Signs Temp 98.6 F 02/11/19 04:28 Pulse 59 L 02/11/19 04:28 Resp 16 02/11/19 04:28 BP 108/79 02/11/19 04:28 Pulse Ox 98 02/11/19 04:28 Intake & Output 02/10/19 02/11/19 02/11/19 18:59 06:59 18:59 Intake Total 1969 1000 Output Total 1500 Balance 469 1000 Intake: IV 1050 600 Sodium Chloride 0.9% 1, 1050 600 000 ml @ 50 mls/hr IV . Q20H [facility] Rx#:[id number] Intake, IV Titration 50 50 Amount cefTRIAXone 2 gm In 50 50 Sodium Chloride 0.9% 50 ml @ 100 mls/hr IVPB Q24H [facility] Rx#:[id number] Oral 350 Blood Product 869 Rc Pheresis 2 As3 Unit 310 [id number] Output: Urine 1500 Other: Voiding Method Toilet Toilet # Voids 1 - Exam GENERAL: The patient is alert and oriented x3, not in any acute distress. Well developed, well nourished. HEENT: Pupils are round and equally reacting to light. EOMI. No scleral icterus. No conjunctival pallor. Normocephalic, atraumatic. No pharyngeal erythema. No thyromegaly. CARDIOVASCULAR: S1 and S2 present. No murmurs, rubs, or gallops. PULMONARY: Chest is clear to auscultation, no wheezing or crackles. ABDOMEN: Soft, nontender, nondistended, normoactive bowel sounds. No palpable organomegaly. MUSCULOSKELETAL: No joint swelling or deformity. EXTREMITIES: No cyanosis, clubbing, or pedal edema. Bilateral lower extremity tenderness NEUROLOGICAL: Gross neurological examination did not reveal any focal deficits. SKIN: No rashes. No petechiae - Labs CBC & Chem 7: 02/11/19 06:54 02/11/19 06:54 Labs: Abnormal Lab Results - Last 24 Hours (Table) 02/10/19 02/10/19 02/11/19 Range/Units 05:00 14:19 06:54 RBC 2.93 L 3.10 L (3.80-5.40) m/uL Hgb 8.8 L D 9.3 L (11.4-16.0) gm/dL Hct 26.3 L 28.1 L (34.0-46.0) % RDW 16.2 H 16.1 H (11.5-15.5) % Plt Count 34 L 36 L (150-450) k/uL Lymphocytes # 0.6 L (1.0-4.8) k/uL Chloride (98-107) mmol/L Carbon Dioxide (22-30) mmol/L BUN (7-17) mg/dL Iron 20 L (50-170) ug/dL TIBC 194 L (228-460) ug/dL Iron Saturation 10.31 L (12.00-45.00) Vitamin B12 1918.0 H (200.0-944.0) pg/mL 02/11/19 Range/Units 06:54 RBC (3.80-5.40) m/uL Hgb (11.4-16.0) gm/dL Hct (34.0-46.0) % RDW (11.5-15.5) % Plt Count (150-450) k/uL Lymphocytes # (1.0-4.8) k/uL Chloride 113 H (98-107) mmol/L Carbon Dioxide 19 L (22-30) mmol/L BUN 5 L (7-17) mg/dL Iron (50-170) ug/dL TIBC (228-460) ug/dL Iron Saturation (12.00-45.00) Vitamin B12 (200.0-944.0) pg/mL Microbiology - Last 24 Hours (Table) 02/09/19 13:32 Urine Culture - Final Urine,Voided 02/09/19 15:00 Blood Culture - Preliminary Blood No Growth after 24 hours Assessment and Plan Assessment: Acute anemia, status post blood transfusion, possible combination of and deficiency anemia and anemia of chronic disease Acute urinary tract infection Systemic inflammatory response syndrome with leukocytosis of 12.3 K, and tachycardia Possible Sepsis secondary to above Bilateral leg pain, Doppler is negative for DVT. Possible peripheral neuropathy . Improved with Neurontin Recent history of brain hemorrhage associated with thrombocytopenia, one week prior to admission History of lung cancer since 2014, with metastasis to the liver and omental masses pelvic masses History of laryngeal cancer History of pulmonary embolism History of coronary artery disease Hypertension Hyperlipidemia GERD History of CVA/TIA Plan: This is a pleasant 53 years old female who presents with sepsis, rule out urinary tract infection. Continue with antibiotics. Appreciate infectious disease consult. Consult oncology team. , monitor hemoglobin and platelet count. Consult GI team for possible GI bleed. Start iron Labs and medication were reviewed.. Continue same treatment. Continue with symptomatic treatment. Resume home medication. Monitor lytes and vitals. DVT and GI prophylaxis. Further recommendations of the clinical course of the patient DVT prophylaxis: no heparin in view of recent cerebral hemorrhage, also thrombocytopenia GI Prophylaxis: Pepcid PT/OT: Pending Prognosis is guarded
[2019-02-11] MEDS: FERROUS SULFATE 325 MG TAB PO SCH (12:55)
--- NOTE | 2019-02-11 14:28 | P.PN ---
Subjective Progress Note Date: 02/11/19 Principal diagnosis: Weakness and hypotension, This is a 53-year-old female patient got transferred to the intensive care unit because of hypotension. On the floor, the patient was running at a lower blood pressure and for that reason was requested for this patient to get transferred to the ICU. She has a previous history of metastatic adenocarcinoma of the lung. She was diagnosed back in 2016. In fact I did her original transbronchial biopsy for a right lower lobe mass that was measuring 2.8 x 2.4 x 2 cm in size. The biopsy was positive for poorly differentiated adenocarcinoma, EGFR and ROS 1 negative. The patient underwent a right lower lobe resection that was done at [facility]. Following that the patient received adjuvant chemotherapy with a combination of cisplatin and and Alimta was recommended. However, the patient decided not to go through with treatment. He was monitored and she developed recurrent disease with metastases. This developed in July 2018. She was also diagnosed having an early stage laryngeal cancer that was treated with radiation therapy. Note that in July 2018 the patient presented with a pelvic mass and liver lesions as well as omental mass. Biopsies at that time from the liver and gastric fluid analysis came back positive for adenocarcinoma. The PD1 was strongly positive. The patient was started on a combination of carboplatinum, Alimta and Keytruda and she received several cycles. The patient also is known to have coronary artery disease, hypertension and hyperlipidemia and previous history of CVA and previous history of pulmonary embolism. The patient last week was also found to have a small area of hemorrhage in her brain was treated with thrombocytopenia and no intervention was needed. At that time she was referred to [facility] where she underwent further investigation. She was taken off anticoagulation. Her platelet counts remain low and during this current admission the platelet count was initially at 41. The rest of the coagulation profile was within normal limits. She came to the hospital because of fever. She was complaining of pain in her lower extremities for the past 3-4 days. She had difficulties and standing up and her weakness had gotten significantly worse and the patient also developed significant diminishment in her appetite. No chest pain. No abdominal pain. No changes in bowel or urine habits. The patient was tachycardic at time of admission with a heart rate of 105. She had a low grade temperature of 99.2. Her blood pressure was in 0 57. White cell count was at 12.3 and hemoglobin was at 9 with an INR of 1.3 and a creatinine of 0.9. CAT scan of the brain showed no evidence of any acute intracranial process and there was no evidence of any acute bleeding. The patient was suspected to have UTI. She was started on antibiotics and she is currently taking Rocephin 1 g every 24 hours. She is also on normal saline at the rate of 150 mL an hour. Her most recent blood pressure 94/61 the patient did not require any pressors. Current pulse ox is 99% on room air. The venous Doppler of the lower extremities are negative for DVT. Upon subsequent following, the hemoglobin from this morning came down at 6.9. The patient reported some black stools. No clear evidence of any upper or lower GI bleed however. He has already received a total of 2 L of IV fluids. The serum bicarbs at 18. Renal function is stable. No respiratory difficulties she is currently on room air oxygen. No cough or sputum production. Most recent CAT scan of the chest that was done on 01/28/2019 showed emphysema. There was moderate degree of emphysema. There is also no mediastinal lymphadenopathy. 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 The patient is not taking any systemic chemotherapy or immunotherapy for the time being. On 02/11/2019 patient seen in follow-up on medical surgical floor. She is awake and alert, in no acute distress, she has been transferred out of the intensive care unit, and she is doing well on medical surgical floor, she is afebrile, she denies any episodes of hematemesis, or any blood in the stool, pressure stable, at 106/70, room air pulse ox is 90%, she denies any difficulty breathing, no cough or congestion. She received and of packed red blood cells on admission for hemoglobin of 6.9, today's lab work has been reviewed revealing hemoglobin of 9.3, platelet count is 36, serum sodium is 139, potassium is 4.3, chloride is 113, CO2 is 19, B1 is 5 and creatinine 0.76. SErum cortisol level was only 8, urinalysis showed of moderate leukocyte esterase, and increased urine white blood cell count asking urinary tract infection, urine and blood culture showed no growth. Current antibiotic coverage is with ceftriaxone, patient is without any specific complaints, her IV fluids are infusing at a rate of 50 ML per hour, she denies any fever or chills, denies any chest pain. Lung sounds are clear. Objective - Vital Signs Vital signs: Vital Signs Temp 98.4 F 02/11/19 11:56 Pulse 103 H 02/11/19 11:56 Resp 17 02/11/19 11:56 BP 106/70 02/11/19 11:56 Pulse Ox 99 02/11/19 11:56 Intake & Output 02/10/19 02/11/19 02/11/19 18:59 06:59 18:59 Intake Total 1969 1000 Output Total 1500 Balance 469 1000 Intake: IV 1050 600 Sodium Chloride 0.9% 1, 1050 600 000 ml @ 50 mls/hr IV . Q20H NAINA Rx#:[id number] Intake, IV Titration 50 50 Amount cefTRIAXone 2 gm In 50 50 Sodium Chloride 0.9% 50 ml @ 100 mls/hr IVPB Q24H [facility] Rx#:[id number] Oral 350 Blood Product 869 Rc Pheresis 2 As3 Unit 310 [id number] Output: Urine 1500 Other: Voiding Method Toilet Toilet # Voids 1 - Exam GENERAL EXAM: Alert, pleasant, 53-year-old -[place] female, on room air comfortable in no apparent distress. HEAD: Normocephalic/atraumatic. EYES: Normal reaction of pupils, equal size. Conjunctiva pink, sclera white. NOSE: Clear with pink turbinates. THROAT: No erythema or exudates. NECK: No masses, no JVD, no thyroid enlargement, no adenopathy. CHEST: No chest wall deformity. Symmetrical expansion. LUNGS: Equal air entry with no crackles, wheeze, rhonchi or dullness. CVS: Regular rate and rhythm, normal S1 and S2, no gallops, no murmurs, no rubs ABDOMEN: Soft, nontender. No hepatosplenomegaly, normal bowel sounds, no guarding or rigidity. EXTREMITIES: No clubbing, no edema, no cyanosis, 2+ pulses and upper and lower extremities. MUSCULOSKELETAL: Muscle strength and tone normal. SPINE: No scoliosis or deformity SKIN: No rashes CENTRAL NERVOUS SYSTEM: Alert and oriented -3. No focal deficits, tone is normal in all 4 extremities. PSYCHIATRIC: Alert and oriented -3. Appropriate affect. Intact judgment and insight. - Labs CBC & Chem 7: 02/11/19 06:54 02/11/19 06:54 Labs: Abnormal Lab Results - Last 24 Hours (Table) 02/10/19 02/10/19 02/11/19 Range/Units 05:00 14:19 06:54 RBC 2.93 L 3.10 L (3.80-5.40) m/uL Hgb 8.8 L D 9.3 L (11.4-16.0) gm/dL Hct 26.3 L 28.1 L (34.0-46.0) % RDW 16.2 H 16.1 H (11.5-15.5) % Plt Count 34 L 36 L (150-450) k/uL Lymphocytes # 0.6 L (1.0-4.8) k/uL Chloride (98-107) mmol/L Carbon Dioxide (22-30) mmol/L BUN (7-17) mg/dL Iron 20 L (50-170) ug/dL TIBC 194 L (228-460) ug/dL Iron Saturation 10.31 L (12.00-45.00) Vitamin B12 1918.0 H (200.0-944.0) pg/mL 02/11/19 Range/Units 06:54 RBC (3.80-5.40) m/uL Hgb (11.4-16.0) gm/dL Hct (34.0-46.0) % RDW (11.5-15.5) % Plt Count (150-450) k/uL Lymphocytes # (1.0-4.8) k/uL Chloride 113 H (98-107) mmol/L Carbon Dioxide 19 L (22-30) mmol/L BUN 5 L (7-17) mg/dL Iron (50-170) ug/dL TIBC (228-460) ug/dL Iron Saturation (12.00-45.00) Vitamin B12 (200.0-944.0) pg/mL Microbiology - Last 24 Hours (Table) 02/09/19 13:32 Urine Culture - Final Urine,Voided 02/09/19 15:00 Blood Culture - Preliminary Blood No Growth after 24 hours Assessment and Plan Plan: 1 hypotension for which the patient got transferred to the intensive care unit and this is being further investigated. Exact cause is not clear. Consider bleeding possibly a GI bleed as the patient's hemoglobin dropped from 9 down to 6.9. Note that the patient also is thrombocytopenic and this will be an excellent set up for bleeding. Other possibilities could be infection of a urinary source and the patient was empirically covered with IV Rocephin. The patient was already given a total of 2 L of IV fluids. No pressors for now. On 02/11/2019 patient is stable on medical surgical floor, hemodynamically stable, she has been fluid resuscitated, and maintaining a systolic in the low 100s, serum cortisol was low at 8, suggesting secondary adrenal insufficiency due to possibility of tract infection. 2 stage IV metastatic adenocarcinoma of the lung post right lower lobe resection, post systemic chemotherapy utilizing a combination of carboplatinum and Alimta and Keytruda and the patient has been off treatment since October 2018 3 small right-sided pleural effusion 4 COPD currently inactive in stable 5 subarachnoid bleeding attributed to thrombocytopenia and anticoagulation. The patient is currently off Eliquis and the plated count is 30 this morning. The CAT scan of the brain showed resolution of the previously described subarachnoid bleeding and she does not have any acute neurological deficits. 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 No acute issues overnight, cultures remain negative, continue with empiric antibiotic coverage. patient denies episodes of GI bleeding, stool for occult blood is pending, no pain, no nausea or vomiting, ID service is following and managing the antibiotics, hematology is following for thrombocytopenia. I performed a history & physical examination of the patient and discussed their management with my nurse practitioner, Sheri Cassidy. I reviewed the nurse practitioner's note and agree with the documented findings and plan of care. Lung sounds are positive for diffuse wheezes throughout the lung cano. The findings and the impression was discussed with the patient. I attest to the documentation by the nurse practitioner. Time with Patient: Less than 30
--- NOTE | 2019-02-11 16:11 | P.CONS ---
History of Present Illness - Reason for Consult Consult date: 02/11/19 Metastatic cancer Requesting physician: Anurag Alcantara Sheet - Chief Complaint Weakness - History of Present Illness The patient is a 53-year-old -Pippa a complicated past Oncologic history. She had presented in 07/28 with a right lung mass, and underwent lobectomy in 08/28 revealing adenocarcinoma of the lung. She was recommended chemotherapy at that time, but did not follow-up. She had somewhat irregular follow-up subsequently with no evidence of recurrent disease until about 07/31. Incidentally in 05/01 she was diagnosed with an early-stage laryngeal cancer th at was treated with definitive radiation. In 07/31, the patient presented with pelvic mass, liver lesions, as well as omental masses. She was found to have recurrent adenocarcinoma of the lung on the sciatic fluid cytology, as well as liver biopsy. PD-1 was strongly positive. Initiation of treatment was delayed, due to admission for influenza, during which she was found to have a PE. She was started on anticoagulation with eliquis but was admitted with vaginal bleeding. This improved with s upplemental anticoagulation, which was later able to resumed She was again admitted on 08/28/18, with complains of weakness, dehydration and decreased appetite. She did improve with supportive care, and received her first cycle of chemotherapy with carboplatin and Alimta on 08/31/18. She was subsequently discharged. She was recently seen in Emergency on 01/28/19 and at that time her platelet cou nt was 18K and CT brain revealed a new Subarchnoid hemorrage, she was subsequently transferred to [facility] for further evaluation. I am awaiting for MRI brain to assess if this was bleed or thrombolic as further thrombocytopenia work-up revealed positive HIT antibody. CT scan without contrast revealed this has resolved although may have some underlying edema. Her eliquis has been stopped since this time. She was on treatment with carboplatin almta and Keytruda, then Almta and keytruda alone. Last treatment was November 02. It is unclear why she did not show up in November or December for her treatments as these were scheduled and documentation in office shows she did not show. Her most recent radiation was to vaginal cuff to stop vaginal bleeding. This completed in October as well. Other persistent complaints include dysphagia and sore throat. Review of Systems A 14 point review of systems was assessed and completed and are all negative exc ept for HPI Past Medical History Past Medical History: Cancer, CVA/TIA, GERD/Reflux, Hyperlipidemia, Hypertension, Myocardial Infarction (MT) Additional Past Medical History / Comment(s): Stage IV metastatic lung cancer, adenocarcinoma, initially diagnosed back in 2016 and the patient has liver metastases. 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 Last Myocardial Infarction Date:: 04/30/2013 History of Any Multi-Drug Resistant Organisms: None Reported Past Surgical History: Heart Catheterization, Orthopedic Surgery, Tubal Ligation, Uterine Ablation Additional Past Surgical History / Comment(s): Right lower lobe resection for small cell lung cancer, angioplasty/stenting of a brain aneurysm, carpal tunnel release, laparoscopy and liver biopsy, paracentesis, Past Anesthesia/Blood Transfusion Reactions: No Reported Reaction Past Psychological History: Anxiety, Panic Disorder Smoking Status: Former smoker Past Alcohol Use History: None Reported Past Drug Use History: None Reported - Past Family History Mother Family Medical History: Cancer Father Family Medical History: Cancer Medications and Allergies Home Medications Medication Instructions Recorded Confirmed Type Folic Acid 1 mg PO DAILY #30 tab 08/24/18 02/09/19 Rx Pantoprazole Sodium [Protonix] 40 mg PO DAILY #30 tablet. 08/24/18 02/09/19 Rx Ondansetron [Zofran ODT] 4 mg PO Q8HR PRN 08/30/18 02/09/19 History Megestrol [Megace] 400 mg PO DAILY #30 cup 09/01/18 02/09/19 Rx Sennosides [Senna] 8.6 mg PO HS PRN #60 tablet 09/09/18 02/09/19 Rx Magnesium Oxide [Mag-Ox] 400 mg PO TID #90 tab 10/26/18 02/09/19 Rx fentaNYL 12MCG/HR PATCH [Duragesic 1 patch TRANSDERM Q72H #10 patch 10/26/18 02/09/19 Rx 12MCG/HR] oxyCODONE-APAP 10-325MG [Percocet 1 tab PO QID PRN 3 Days #12 tab 10/26/18 02/09/19 Rx 10-325 mg] Atorvastatin [Lipitor] 80 mg PO HS 01/28/19 02/09/19 History Metoprolol Tartrate [Lopressor] 25 mg PO BID 02/03/19 02/09/19 History levETIRAcetam [Keppra] 500 mg PO BID 02/03/19 02/09/19 History Allergies Allergy/AdvReac Type Severity Reaction Status Date / Time heparin Allergy Unknown Verified 02/11/19 15:33 Penicillins Allergy Unknown Verified 02/09/19 11:17 Childhood Physical Exam Vitals: Vital Signs Temp Pulse Pulse Resp BP BP Pulse Ox 02/11/19 11:56 98.4 F 103 H 17 106/70 99 02/11/19 04:28 98.6 F 59 L 16 108/79 98 02/10/19 20:22 98.5 F 114 H 16 137/65 99 02/10/19 15:00 99.0 F 100 15 142/88 94 L Intake and Output 02/10/19 02/11/19 02/11/19 22:59 06:59 14:59 Intake Total 350 650 Balance 350 650 Intake: IV 600 Sodium Chloride 0.9% 1, 600 000 ml @ 50 mls/hr IV . Q20H NAINA Rx#:[id number] Intake, IV Titration 50 Amount cefTRIAXone 2 gm In 50 Sodium Chloride 0.9% 50 ml @ 100 mls/hr IVPB Q24H NAINA Rx#:[id number] Oral 350 Other: Voiding Method Toilet Toilet # Voids 1 1 General: Alert and Oriented x3, No Acute Distress Head: Normocytic, Atraumatic Neck: Supple Mouth: No Lesions, No Thrush Eyes: Non-sclerotic No Palpable cervical, supraclavicular, axillary adenopathy Heart: Regular Rate, Regular Rhythm Lungs: Clear to Ausculations, No Wheeze, No Rhonchi, Diminishe bilateral lower lobes, No increased respiratory effort noted Abdomen: Soft, Non-Distended, Non-Tended, BSx4 Extremities: No Edema, Equal Strength Neurological: No Focal Defects: No sensory or motor deficits noted Psych: Calm and cooperative Results CBC & Chem 7: 02/11/19 06:54 02/11/19 06:54 Labs: Abnormal Lab Results - Last 24 Hours (Table) 02/10/19 02/10/19 02/11/19 Range/Units 05:00 14:19 06:54 RBC 2.93 L 3.10 L (3.80-5.40) m/uL Hgb 8.8 L D 9.3 L (11.4-16.0) gm/dL Hct 26.3 L 28.1 L (34.0-46.0) % RDW 16.2 H 16.1 H (11.5-15.5) % Plt Count 34 L 36 L (150-450) k/uL Lymphocytes # 0.6 L (1.0-4.8) k/uL Chloride (98-107) mmol/L Carbon Dioxide (22-30) mmol/L BUN (7-17) mg/dL Iron 20 L (50-170) ug/dL TIBC 194 L (228-460) ug/dL Iron Saturation 10.31 L (12.00-45.00) Vitamin B12 1918.0 H (200.0-944.0) pg/mL 02/11/19 Range/Units 06:54 RBC (3.80-5.40) m/uL Hgb (11.4-16.0) gm/dL Hct (34.0-46.0) % RDW (11.5-15.5) % Plt Count (150-450) k/uL Lymphocytes # (1.0-4.8) k/uL Chloride 113 H (98-107) mmol/L Carbon Dioxide 19 L (22-30) mmol/L BUN 5 L (7-17) mg/dL Iron (50-170) ug/dL TIBC (228-460) ug/dL Iron Saturation (12.00-45.00) Vitamin B12 (200.0-944.0) pg/mL Microbiology - Last 24 Hours (Table) 02/09/19 13:32 Urine Culture - Final Urine,Voided 02/09/19 15:00 Blood Culture - Preliminary Blood No Growth after 24 hours Assessment and Plan Plan: Assessment and Plan Recurrent Metastatic non small cell lung cancer: - Most recently treated November 02 on Keytruda and Almta - Carboplatin, Almta and Keytruda completed in September2018. and Carboplatin was stopped for CT scan response shown and thrombocytopenia, although platlet did recover quickly. - concern for ?progression in liver - She will follow-up with Dr. Akua outpatient regarding restarting Atmta and Keytruda Neoplastic related pain: - Follows with Dr. Valdez for management Recent Subarachnoid Hematoma versus CVA - Therefore Eliquis has been discontinued - She was admitted to [facility] and Evaluated by Neurosurgery - MRI at [facility] has been requested in office. Thrombocytopenia: Unknown etiology: - Most likely ITP although must consider other: - Platlets had been trending above 200K for past few months, although when the SDH was identified last month her platelet count had dropped to 16K. - Full work-up was completed and DIC was ruled out although Heparin induced thrombocytopenia was positive for antibody, which is rather rare as the only exposure to heprin was for periodic port flushes. A seratonin release assay was sent as the gold standard test last week, [facility], expected to have results within the next 1-2weeks. - Will discuss if treatment with Argantroban is recommended in picture of thrombotic event, thrombocytopenia, although complicated with bleed. Normocytic Anemia: Stable - Work-up in place.
[2019-02-11] MEDS ORDERED: HYDROmorphone 2 MG TAB PO PRN (17:05)
--- NOTE | 2019-02-11 19:48 | CONS ---
CONSULTATION DATE OF DICTATION: 02/11/2019 REASON FOR CONSULTATION: Anemia. HISTORY OF PRESENT ILLNESS: The patient is a 53-year-old pleasant white female with a history of metastatic lung carcinoma who was undergoing chemotherapy until 3 months ago. She was admitted to hospital because of fever and subsequently diagnosed with urosepsis. She was hypotensive and hence was admitted to the intensive care unit on broad-spectrum antibiotics. She was just transferred from the intensive care unit yesterday to the floor. The reason we are consulted is because of anemia. At the time of admission to the hospital, hemoglobin was 6.9 requiring one unit of blood transfusion. The patient, however, denies any abdominal pain. She reports no nausea, vomiting, diarrhea or constipation. She usually is constipated at home and takes Senna at night. She received one unit of blood transfusion and hemoglobin today is 9.3 g/dL. She is feeling much better today. She has no further episodes of fever, chills or night sweats. PAST MEDICAL HISTORY: Her past medical history is significant for: 1. Metastatic lung cancer, for which she follows with Dr. Fatima. Undergoing chemotherapy. Last one was about 3 months ago. 2. History of hypertension. 3. Hyperlipidemia. 4. Gastroesophageal reflux disease. 5. Status post MA in the past. PAST SURGICAL HISTORY: 1. Tubal ligation. 2. Uterine ablation. 3. Port placement. 4. Carpal tunnel surgery. 5. Partial right lung removal in 2016. MEDICATIONS: Medications at home include: 1. Folic acid. 2. Protonix. 3. Zofran. 4. Megace. 5. Senna. 6. Magnesium oxide. 7. Fentanyl. 8. Oxycodone. 9. Lipitor. 10.Lopressor. 11.Keppra. ALLERGIES: PENICILLIN. SOCIAL HISTORY: She is a former smoker. No alcohol use. FAMILY HISTORY: Mother had some kind of cancer. Father also had some kind of cancer. REVIEW OF SYSTEMS: CARDIOPULMONARY: She denies any chest pain or shortness of breath. GENITOURINARY: No dysuria or hematuria. MUSCULOSKELETAL: Unremarkable. SKIN: Unremarkable. ENDOCRINE: Unremarkable. PSYCHIATRIC: Unremarkable. NEUROLOGY: Mild weakness and fatigue. CONSTITUTIONAL: No recent weight loss. No fever, chills, night sweats. HEMATOLOGY: Unremarkable. ONCOLOGY: As mentioned above. PHYSICAL EXAMINATION: She appears comfortable. No apparent distress. VITAL SIGNS: Stable. Blood pressure is 122/86, pulse rate 103, temperature 98.4. HEENT examination unremarkable. Conjunctivae pink. Sclerae anicteric. Oral cavity no lesions. NECK: No JVD or lymph node enlargement. CHEST: Clear to auscultation. There is a port placed on the right side. ABDOMEN: Soft. Bowel sounds are positive. No organomegaly. EXTREMITIES: No pedal edema. SKIN: No rashes. NEUROLOGIC: Alert and oriented x3. No focal deficits. LABS: Labs drawn initially at the time of admission to the hospital showed WBC 7.8, hemoglobin 6.9, platelets 30,000. Today WBC 9.2, hemoglobin 9.3, platelets 36,000. BUN and creatinine are 5 in 0.75, respectively. Serum iron was 20, TIBC was 194, iron saturation 10.3% and ferritin was 241. IMPRESSION: Normocytic anemia; this is not consistent with iron deficiency anemia. Most likely we are dealing with anemia that is multifactorial in etiology. Clinically she does not have any evidence of active bleeding or occult GI blood loss. Her last colonoscopy, according to the patient, was a year and a half ago, which was within normal limits. RECOMMENDATIONS: 1. Agree with blood transfusion. 2. Monitor CBC on a basis. 3. No plans for any endoscopic intervention at the present time. Thank you for this consultation. MMODL / IJN: [id number] /
[2019-02-11] MEDS: ATORVASTATIN 80 MG TAB PO SCH (20:53)
--- NOTE | 2019-02-11 22:33 | PN ---
PROGRESS NOTE DATE OF SERVICE: 02/11/2019 REASON FOR FOLLOWUP: Fever and UTI. INTERVAL HISTORY: The patient is currently afebrile. The patient is feeling much better. She is breathing comfortably. Denies having any chest pain or shortness of breath. Occasional cough. No nausea, vomiting, abdominal pain or diarrhea. PHYSICAL EXAMINATION: Blood pressure 106/70 with a pulse of 103, temperature 98.4. She is 99% on room air. General description is a middle-aged female lying in bed in no distress. RESPIRATORY SYSTEM: Unlabored breathing with decreased breath sounds at the base. Some wheeze. HEART: S1, S2. Regular rate and rhythm. ABDOMEN: Soft. No tenderness. LABS: Hemoglobin 9.3, white count 9.2 with a BUN of 5, creatinine 0.76. UA has been positive. Urine culture so far negative. Blood cultures are negative. DIAGNOSTIC IMPRESSION AND PLAN: Patient admitted to hospital with generalized weakness, low-grade fever in this patient who did have a positive UA and the patient seems to have clinically responded to the Rocephin, which will be continued and transitioned to oral Ceftin on discharge, especially if the cultures remain negative. Continue with supportive care. MMODL / IJN: [id number] /
[2019-02-12] MEDS: SODIUM CHLORIDE 0.9% 1,000 ML IV SCH ×4 (02:31→22:47)
[2019-02-12 06:39] LABS: Glucose,Whole Blood 75 mg/dL (75-99)
[2019-02-12 07:45] LABS: Anisocytosis Slight; HCT 28.8 % (34.0-46.0); HGB 9.5 gm/dL (11.4-16.0); Hypochromasia Marked; MCH 30.4 pg (25.0-35.0); MCHC 33.1 g/dL (31.0-37.0); Mean Platelet Volume 10.4; Poikilocytosis Slight; RBC 3.13 m/uL (3.80-5.40); RDW 16.3 % (11.5-15.5)
[2019-02-12 07:48] LABS: African American GFR (CKD) >90 (>60 ml/min/1.73 sqM); Anion Gap 7 mmol/L; Blood Urea Nitrogen 5 mg/dL (7-17); Calcium 8.8 mg/dL (8.4-10.2); Carbon Dioxide 21 mmol/L (22-30); Chloride 112 mmol/L (98-107); Glucose 74 mg/dL (74-99); Potassium 4.1 mmol/L (3.5-5.1); Sodium 140 mmol/L (137-145)
[2019-02-12 08:01] LABS: Platelet Count 31 k/uL (150-450)
[2019-02-12] MEDS: GABAPENTIN 100 MG CAP PO SCH ×3 (08:18→21:47)
[2019-02-12] MEDS: levETIRAcetam 500 MG TAB PO SCH ×2 (08:18→21:48)
[2019-02-12] MEDS: PANTOPRAZOLE 40 MG TABLET PO SCH (08:18)
[2019-02-12] MEDS: FOLIC ACID 1 MG TAB PO SCH (08:18)
[2019-02-12] MEDS: MAGNESIUM OXIDE 400 MG TAB PO SCH ×3 (08:18→21:49)
[2019-02-12] MEDS: FERROUS SULFATE 325 MG TAB PO SCH (08:18)
[2019-02-12] MEDS: oxyCODONE-APAP 10-325MG 1 EACH TAB PO PRN ×2 (08:18→17:47)
[2019-02-12 09:36] LABS: Band Neutrophils % 1 %; Basophils # (M) 0.09 k/uL (0-0.2); Eosinophils # (M) 0.54 k/uL (0-0.7); Lymphocytes # (M) 0.54 k/uL (1.0-4.8); Monocytes # (M) 0.63 k/uL (0-1.0); Neutrophils % (M) 79 %; Nucleated Red Blood Cells 0 /100 WBC (0-0); Total Cells Counted 100
--- NOTE | 2019-02-12 12:23 | P.PN ---
Subjective Progress Note Date: 02/12/19 Principal diagnosis: Anemia, hypotension This is a 53-year-old female patient got transferred to the intensive care unit because of hypotension. On the floor, the patient was running at a lower blood pressure and for that reason was requested for this patient to get transferred to the ICU. She has a previous history of metastatic adenocarcinoma of the lung. She was diagnosed back in 2016. In fact I did her original transbronchial biopsy for a right lower lobe mass that was measuring 2.8 x 2.4 x 2 cm in size. The biopsy was positive for poorly differentiated adenocarcinoma, EGFR and ROS 1 negative. The patient underwent a right lower lobe resection that was done at [facility]. Following that the patient received adjuvant chemotherapy with a combination of cisplatin and and Alimta was recommended. However, the patient decided not to go through with treatment. He was monitored and she developed recurrent disease with metastases. This developed in July 2018. She was also diagnosed having an early stage laryngeal cancer that was treated with radiation therapy. Note that in July 2018 the patient presented with a pelvic mass and liver lesions as well as omental mass. Biopsies at that time from the liver and gastric fluid analysis came back p ositive for adenocarcinoma. The PD1 was strongly positive. The patient was started on a combination of carboplatinum, Alimta and Keytruda and she received several cycles. The patient also is known to have coronary artery disease, hypertension and hyperlipidemia and previous history of CVA and previous history of pulmonary embolism. The patient last week was also found to have a small area of h emorrhage in her brain was treated with thrombocytopenia and no intervention was needed. At that time she was referred to [facility] where she underwent further investigation. She was taken off anticoagulation. Her platelet counts remain low and during this current admission the platelet count was initially at 41. The rest of the coagulation profile was within normal limits. She came to the hospital because of fever. She was complaining of pain in her lower extremities for the past 3-4 days. She had difficulties and standing up and her weakness had gotten significantly worse and the patient also developed significant diminishment in her appetite. No chest pain. No abdominal pain. No changes in bowel or urine habits. The patient was tachycardic at time of admission with a heart rate of 105. She had a low grade temperature of 99.2. Her blood pressure was in 0 57. White cell count was at 12.3 and hemoglobin was at 9 with an INR of 1.3 and a creatinine of 0.9. CAT scan of the brain showed no evidence of any acute intracranial process and there was no evidence of any acute bleeding. The patient was suspected to have UTI. She was started on antibiotics and she is currently taking Rocephin 1 g every 24 hours. She is also on normal saline at the rate of 150 mL an hour. Her most recent blood pressure 94/61 the patient did not require any pressors. Current pulse ox is 99% on room air. The venous Doppler of the lower extremities are negative for DVT. Upon subsequent following, the hemoglobin from this morning came down at 6.9. The patient reported some black stools. No clear evidence of any upper or lower GI bleed however. He has already received a total of 2 L of IV fluids. The serum bicarbs at 18. Renal function is stable. No respiratory difficulties she is currently on room air oxygen. No cough or sputum production. Most recent CAT scan of the chest that was done on 01/28/2019 showed emphysema. There was moderate degree of emphysema. There is also no mediastinal lymphadenopathy. 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 The patient is not taking any systemic chemotherapy or immunotherapy for the time being. On 02/11/2019 patient seen in follow-up on medical surgical floor. She is awake and alert, in no acute distress, she has been transferred out of the intensive care unit, and she is doing well on medical surgical floor, she is afebrile, she denies any episodes of hematemesis, or any blood in the stool, pressure stable, at 106/70, room air pulse ox is 90%, she denies any difficulty breathing, no cough or congestion. She received and of packed red blood cells on admission for hemoglobin of 6.9, today's lab work has been reviewed revealing hemoglobin of 9.3, platelet count is 36, serum sodium is 139, potassium is 4.3, chloride is 113, CO2 is 19, B1 is 5 and creatinine 0.76. SErum cortisol level was only 8, urinalysis showed of moderate leukocyte esterase, and increased urine white blood cell count asking urinary tract infection, urine and blood culture showed no growth. Current antibiotic coverage is with ceftriaxone, patient is without any specific complaints, her IV fluids are infusing at a rate of 50 ML per hour, she denies any fever or chills, denies any chest pain. Lung sounds are clear. The patient is seen today 02/12/2019 in follow-up on the regular medical floor. She is awake and alert in no acute distress. She is currently sitting up at the bedside. Denies any worsening shortness of breath, cough or congestion. Maintaining good O2 saturations in the upper 90s on room air. She's afebrile. Slightly tachycardic. She is status post 1 unit of packed red blood cells this admission. Hemoglobin 9.5. Platelet count 31,000. White count 9.0. C reatinine 0.84. Urine and blood cultures reveal no growth. Stool for occult blood is positive. She did have black tarry stool this morning. Objective - Vital Signs Vital signs: Vital Signs Temp 98.6 F 02/12/19 05:00 Pulse 112 H 02/12/19 05:00 Resp 16 02/12/19 05:00 BP 108/74 02/12/19 05:00 Pulse Ox 100 02/12/19 05:00 Intake & Output 02/11/19 02/12/19 02/12/19 18:59 06:59 18:59 Intake Total 740 1140 Balance 740 1140 Intake: IV 500 Sodium Chloride 0.9% 1, 500 000 ml @ 50 mls/hr IV . Q20H NAINA Rx#:[id number] Intake, IV Titration 50 Amount cefTRIAXone 2 gm In 50 Sodium Chloride 0.9% 50 ml @ 100 mls/hr IVPB Q24H NAINA Rx#:[id number] Oral [id number] Other: Voiding Method Toilet Toilet # Voids 2 1 - Exam GENERAL EXAM: Alert, pleasant, 53-year-old female patient, on room air comfortable in no apparent distress. HEAD: Normocephalic/atraumatic. EYES: Normal reaction of pupils, equal size. Conjunctiva pink, sclera white. NOSE: Clear with pink turbinates. THROAT: No erythema or exudates. NECK: No masses, no JVD, no thyroid enlargement, no adenopathy. CHEST: No chest wall deformity. Symmetrical expansion. LUNGS: Equal air entry with no crackles, wheeze, rhonchi or dullness. CVS: Regular rate and rhythm, normal S1 and S2, no gallops, no murmurs, no rubs ABDOMEN: Soft, nontender. No hepatosplenomegaly, normal bowel sounds, no guarding or rigidity. EXTREMITIES: No clubbing, no edema, no cyanosis, 2+ pulses and upper and lower extremities. MUSCULOSKELETAL: Muscle strength and tone normal. SPINE: No scoliosis or deformity SKIN: No rashes CENTRAL NERVOUS SYSTEM: No focal deficits, tone is normal in all 4 extremities. PSYCHIATRIC: Alert and oriented -3. Appropriate affect. Intact judgment and insight. - Labs CBC & Chem 7: 02/12/19 06:44 02/12/19 06:44 Labs: Abnormal Lab Results - Last 24 Hours (Table) 02/12/19 02/12/19 02/12/19 Range/Units 06:31 06:44 06:44 RBC 3.13 L (3.80-5.40) m/uL Hgb 9.5 L (11.4-16.0) gm/dL Hct 28.8 L (34.0-46.0) % RDW 16.3 H (11.5-15.5) % Plt Count 31 L (150-450) k/uL Lymphocytes # (Manual) 0.54 L (1.0-4.8) k/uL Chloride 112 H (98-107) mmol/L Carbon Dioxide 21 L (22-30) mmol/L BUN 5 L (7-17) mg/dL Stool Occult Blood Positive H (Negative) Microbiology - Last 24 Hours (Table) 02/09/19 15:00 Blood Culture - Preliminary Blood No Growth after 48 hours Assessment and Plan Assessment: Impression: 1 hypotension for which the patient got transferred to the intensive care unit and this is being further investigated. Exact cause is not clear. Consider bleeding possibly a GI bleed as the patient's hemoglobin dropped from 9 down to 6.9. Note that the patient also is thrombocytopenic and this will be an excellent set up for bleeding. Other possibilities could be infection of a urinary source and the patient was empirically covered with IV Rocephin. The patient was already given a total of 2 L of IV fluids. No pressors for now. On 02/11/2019 patient is stable on medical surgical floor, hemodynamically stable, she has been fluid resuscitated, and maintaining a systolic in the low 100s, serum cortisol was low at 8, suggesting secondary adrenal insufficiency due to possibility of tract infection. 2 stage IV metastatic adenocarcinoma of the lung post right lower lobe resecti on, post systemic chemotherapy utilizing a combination of carboplatinum and Alimta and Keytruda and the patient has been off treatment since October 2018 3 small right-sided pleural effusion 4 COPD currently inactive in stable 5 subarachnoid bleeding attributed to thrombocytopenia and anticoagulation. The patient is currently off Eliquis and the plated count is 30 this morning. The CAT scan of the brain showed resolution of the previously described subarachnoid bleeding and she does not have any acute neurological deficits. 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 Nwe. She remains stable from the pulmonary and critical care standpoint. On room air. She did have black tarry stool this morning. Hemoglobin 9.5. Platelet count 31,000. GI services on the case. We will continue to follow. I, the cosigning physician, performed a history & physical examination of the patient. Lungs sounds are clear. Maintaining good O2 saturations in the 90s on room air. I discussed the assessment and plan of care with my nurse practitioner, Mera Ashley. I attest to the above note as dictated by her.
[2019-02-12] MEDS ORDERED: HYDROmorphone 2 MG TAB PO STA (14:17)
[2019-02-12] MEDS: NYSTATIN 100,000 UNIT/ML SUSP 500,000 UNIT/5 ML CUP PO SCH ×3 (14:38→21:49)
--- NOTE | 2019-02-12 16:03 | P.PN ---
Subjective Progress Note Date: 02/12/19 Principal diagnosis: UTI Patient today states her pain is not controlled although yesterday was feeling too sleepy. She has not had her fentanyl patch on in 6 days, advised to re- start. Objective - Vital Signs Vital signs: Vital Signs Temp 98.8 F 02/12/19 12:47 Pulse 105 H 02/12/19 12:47 Resp 16 02/12/19 12:47 BP 110/66 02/12/19 12:47 Pulse Ox 99 02/12/19 12:47 Intake & Output 02/11/19 02/12/19 02/12/19 18:59 06:59 18:59 Intake Total 740 1140 Balance 740 1140 Intake: IV 500 Sodium Chloride 0.9% 1, 500 000 ml @ 50 mls/hr IV . Q20H [facility] Rx#:[id number] Intake, IV Titration 50 Amount cefTRIAXone 2 gm In 50 Sodium Chloride 0.9% 50 ml @ 100 mls/hr IVPB Q24H [facility] Rx#:[id number] Oral 740 590 Other: Voiding Method Toilet Toilet # Voids 2 1 1 - Exam General: Alert and Oriented x3, No Acute Distress confused at times Head: Normocytic, Atraumatic Neck: Supple Mouth: No Lesions, No Thrush Eyes: Non-sclerotic No Palpable cervical, supraclavicular, axillary adenopathy Heart: Regular Rate, Regular Rhythm Lungs: Clear to Ausculations, No Wheeze, No Rhonchi, Diminishe bilateral lower lobes, No increased respiratory effort noted Abdomen: Soft, Non-Distended, Non-Tended, BSx4 Extremities: No Edema, Equal Strength Neurological: No Focal Defects: Psych: Calm and cooperative - Labs CBC & Chem 7: 02/12/19 06:44 02/12/19 06:44 Labs: Abnormal Lab Results - Last 24 Hours (Table) 02/12/19 02/12/19 02/12/19 Range/Units 06:31 06:44 06:44 RBC 3.13 L (3.80-5.40) m/uL Hgb 9.5 L (11.4-16.0) gm/dL Hct 28.8 L (34.0-46.0) % RDW 16.3 H (11.5-15.5) % Plt Count 31 L (150-450) k/uL Lymphocytes # (Manual) 0.54 L (1.0-4.8) k/uL Chloride 112 H (98-107) mmol/L Carbon Dioxide 21 L (22-30) mmol/L BUN 5 L (7-17) mg/dL Stool Occult Blood Positive H (Negative) Microbiology - Last 24 Hours (Table) 02/09/19 15:00 Blood Culture - Preliminary Blood No Growth after 48 hours Assessment and Plan Plan: Assessment and Plan Recurrent Metastatic non small cell lung cancer: - Most recently treated November 02 on Keytruda and Almta - Carboplatin, Almta and Keytruda completed in September2018. and Carboplatin was stopped for CT scan response shown and thrombocytopenia, although platlet did recover quickly. - concern for ?progression in liver - She will follow-up with Dr. Fatima outpatient regarding restarting Atmta and Keytruda Neoplastic related pain: - Follows with Dr. Valdez for management Recent Subarachnoid Hematoma versus CVA - Therefore Eliquis has been discontinued - She was admitted to [facility] and Evaluated by Neurosurgery - MRI at [facility] has been requested in office. Thrombocytopenia: Unknown etiology: - Most likely ITP although must consider other: - Platlets had been trending above 200K for past few months, although when the SDH was identified last month her platelet count had dropped to 16K. - Full work-up was completed and DIC was ruled out although Heparin induced thrombocytopenia was positive for antibody, which is rather rare as the only exposure to heprin was for periodic port flushes. A seratonin release assay was sent as the gold standard test last week, ran through [facility], expected to have results within the next 1-2weeks. - Will discuss if treatment with Argantroban is recommended in picture of thrombotic event, thrombocytopenia, although complicated with bleed. Normocytic Anemia: Stable - Work-up in place. Anxious and confused at times Plan: - Follow-up with Dr. Fatima after discharge - Please restart fentanyl patch and continue on home pain regimen, she had been without her regular regimen. I have completed the full history and physical of this patient and developed the complete impression and plan, Agree with Tri APPIAH, dictated as a sccribe
[2019-02-12] MEDS ORDERED: GABAPENTIN 100 MG CAP PO ONE (16:45)
--- NOTE | 2019-02-12 17:03 | P.PN ---
Subjective This is a pleasant 53 years old female with past medical history of GERD, hyperlipidemia, hypertension, coronary artery disease, CVA/TIA, lung cancer diagnosed in 2014, history of pulmonary embolism . history of adenocarcinoma of the lung, status post lobectomy, on 04/2018 patient was diagnosed with stage laryngeal cancer, treated with radiation therapy. On 07/2018, patient was found to have liver lesions and omental masses and pelvic masses and found to have recurrent adenocarcinoma of her lung. On that time patient was found to have pulmonary embolism and she was placed on anticoagulation with some evidence of bleeding per vagina going on. Last week patient found to have small area of hemorrhage in the brain associated with thrombocytopenia, no intervention needed. Who presents because of fever. Patient also was complaining of from pain in her both legs and feet for about 3-4 days, patient says there was severe and preventing her from standing up, pain is continuous and any specific with no associated rash. Patient also denies headache. No chest pain or dyspnea. No abdominal pain. No change in urine or bowel habits. Also patient stating decreased appetite. Patient is mildly tachycardic at 105, she has low grade temperature of 99.2, blood pressure on the low side 93/57. Left showing leukocytosis of 12.3 K, hemoglobin 9, INR is 1.3, creatinine 0.9. Chest x-ray showed clear lungs. CAT scan of the brain: No evidence of acute intracranial process, however showing previous occipital craniotomy performed resolution of the left posterior subarachnoid bleed. EKG showing normal sinus rhythm at 100 UA is suspicious for infection In the emergency room patient was started on normal saline at 125 L/h 02/10/2019 Patient was hypotensive overnight and she was transferred to the ICU, she received several boluses of normal saline and her blood pressure get corrected and improved today is 135/90, she still tachycardic with heart rate of 111. Her hemoglobin dropped today from 9 down to 6.9, patient received 1 unit of blood transfusion, her that she is back to normal 7.8K, platelets dropped from 41 down to 30. Rest of BMP is unremarkable with creatinine 0.7, liver enzymes within normal. Patient still complaining from significant leg pain and gabapentin this started, pulmonary/critical care input is appreciated. Were going to do anemia workup. Doppler of the lower extremities negative for DVT 02/11/2019 Patient transferred to the general medical floor, her pain in her legs significantly improved, patient was started on Neurontin for her leg pain. Her blood pressure this morning is 108/79, heart rate is 59, patient had low-grade temperature yesterday of 99.0. Left showing stable hemoglobin at 9.3 after 1 unit of blood transfusion, patient is still thrombocytopenic and 36, creatinine is normal however aren't studies is suspicious for iron deficiency anemia, in combination with anemia of chronic disease which might be related to her cancer history or medical problems. Occult blood in his stool still pending. Patient states that she has regular bowel movement but is dark-colored, she denies abd ominal pain or nausea vomiting. We going to start iron pills. Infectious disease consult is appreciated, her Rocephin is interested 2 g daily. 02/12/2019 Patient was sitting in bed comfortable and smiling when I saw her, she reported that her leg pain is better but at times she got the arm pain, and also shoulder areas which is felt better when I saw her. Patient is mildly tachycardic at 105, however her blood pressure is 110/66, rest of Vitas looks stable and patient is afebrile. Left showing stable hemoglobin of 9.5, platelets still low at 31, sodium is 140, creatinine 0.8, and Hemoccult is positive. Pulmonary and oncology follow-up is appreciated. Patient have some concerns about her pain medicine, I explained to the patient's wound going to taper her Dilaudid from 2 mg by mouth yesterday to 1 mg today and tomorrow. It and she agrees. She has leg pain which is mostly neuropathic pain were going to increase it her Neurontin to 200 and 3 times a day for better pain control. Oncology team evaluated the patient and recommended to restart fentanyl patch as well. Risk of narcotics including but not limited to cardiopulmonary arrest and are explained for the patient and she verbalized understanding and acceptance. GI team were consulted Review of systems CONSTITUTIONAL: No fever HEENT: No recent visual problems or hearing problems. Denied any sore throat. CARDIOVASCULAR: No orthopnea, PND, no palpitations, no syncope. PULMONARY: No shortness of breath, no cough, no hemoptysis. GASTROINTESTINAL: No diarrhea, no nausea, no vomiting, no abdominal pain. Normo active bowel sounds. NEUROLOGICAL: No headaches, no weakness, no numbness. HEMATOLOGICAL: Denies any bleeding or petechiae. GENITOURINARY: Denies any burning micturition MUSCULOSKELETAL/RHEUMATOLOGICAL: Denies any joint pain, swelling, or any muscle pain. ENDOCRINE: Denies any polyuria or polydipsia. Active Medications Generic Name Dose Route Start Last Admin Trade Name Freq PRN Reason Stop Dose Admin Atorvastatin Calcium 80 mg 02/09/19 21:00 02/11/19 20:53 Lipitor PO 80 mg HS [facility] Administration Fentanyl 1 patch 02/09/19 18:00 02/12/19 16:09 Duragesic 12mcg/Hr Patch TRANSDERM 1 patch Q72H [facility] Administration Ferrous Sulfate 325 mg 02/11/19 12:30 02/12/19 08:18 Feosol PO 325 mg W/LUNCH [facility] Administration Folic Acid 1 mg 02/10/19 09:00 02/12/19 08:18 Folic Acid PO 1 mg DAILY [facility] Administration Gabapentin 200 mg 02/12/19 22:00 Neurontin PO TID [facility] Hydromorphone HCl 2 mg 02/11/19 17:05 02/11/19 20:52 Dilaudid PO 2 mg ONCE PRN Administration Pain Sodium Chloride 1,000 mls @ 50 mls/hr 02/09/19 14:45 02/12/19 02:31 Saline 0.9% IV 50 mls/hr .Q20H [facility] Administration Ceftriaxone Sodium 2 gm/ 50 mls @ 100 mls/hr 02/10/19 21:00 02/11/19 20:53 Sodium Chloride IVPB 100 mls/hr Q24H [facility] Administration Levetiracetam 500 mg 02/09/19 21:00 02/12/19 08:18 Keppra PO 500 mg BID [facility] Administration Magnesium Oxide 400 mg 02/09/19 22:00 02/12/19 16:08 Mag-Ox PO 400 mg TID [facility] Administration Naloxone HCl 0.2 mg 02/09/19 14:44 Narcan IV Q2M PRN Opioid Reversal Nystatin 500,000 unit 02/12/19 13:30 02/12/19 14:38 Mycostatin Oral Susp PO 500,000 unit QID [facility] Administration Ondansetron HCl 4 mg 02/09/19 17:50 Zofran Odt PO Q8HR PRN Nausea Oxycodone/Acetaminophen 1 each 02/09/19 17:50 02/12/19 08:18 Percocet 10-325 PO 1 each QID PRN Administration Pain Pantoprazole Sodium 40 mg 02/10/19 07:30 02/12/19 08:18 Protonix PO 40 mg AC-BRKFST [facility] Administration Senna 8.6 mg 02/09/19 17:50 Senokot PO HS PRN Constipation Objective - Vital Signs Vital signs: Vital Signs Temp 98.8 F 02/12/19 12:47 Pulse 105 H 02/12/19 12:47 Resp 16 02/12/19 12:47 BP 110/66 02/12/19 12:47 Pulse Ox 99 02/12/19 12:47 Intake & Output 02/11/19 02/12/19 02/12/19 18:59 06:59 18:59 Intake Total 740 1140 Balance 740 1140 Intake: IV 500 Sodium Chloride 0.9% 1, 500 000 ml @ 50 mls/hr IV . Q20H [facility] Rx#:[id number] Intake, IV Titration 50 Amount cefTRIAXone 2 gm In 50 Sodium Chloride 0.9% 50 ml @ 100 mls/hr IVPB Q24H [facility] Rx#:[id number] Oral 740 590 Other: Voiding Method Toilet Toilet # Voids 2 1 1 - Exam GENERAL: The patient is alert and oriented x3, not in any acute distress. Well developed, well nourished. HEENT: Pupils are round and equally reacting to light. EOMI. No scleral icterus. No conjunctival pallor. Normocephalic, atraumatic. No pharyngeal erythema. No thyromegaly. CARDIOVASCULAR: S1 and S2 present. No murmurs, rubs, or gallops. PULMONARY: Chest is clear to auscultation, no wheezing or crackles. ABDOMEN: Soft, nontender, nondistended, normoactive bowel sounds. No palpable organomegaly. MUSCULOSKELETAL: No joint swelling or deformity. EXTREMITIES: No cyanosis, clubbing, or pedal edema. Bilateral lower extremity tenderness NEUROLOGICAL: Gross neurological examination did not reveal any focal deficits. SKIN: No rashes. No petechiae - Labs CBC & Chem 7: 02/12/19 06:44 02/12/19 06:44 Labs: Abnormal Lab Results - Last 24 Hours (Table) 02/12/19 02/12/19 02/12/19 Range/Units 06:31 06:44 06:44 RBC 3.13 L (3.80-5.40) m/uL Hgb 9.5 L (11.4-16.0) gm/dL Hct 28.8 L (34.0-46.0) % RDW 16.3 H (11.5-15.5) % Plt Count 31 L (150-450) k/uL Lymphocytes # (Manual) 0.54 L (1.0-4.8) k/uL Chloride 112 H (98-107) mmol/L Carbon Dioxide 21 L (22-30) mmol/L BUN 5 L (7-17) mg/dL Stool Occult Blood Positive H (Negative) Microbiology - Last 24 Hours (Table) 02/09/19 15:00 Blood Culture - Preliminary Blood No Growth after 48 hours Assessment and Plan Assessment: Acute anemia, status post blood transfusion, possible combination of and deficiency anemia and anemia of chronic disease Acute urinary tract infection Systemic inflammatory response syndrome with leukocytosis of 12.3 K, and tachycardia Possible Sepsis secondary to above Bilateral leg pain, Doppler is negative for DVT. Possible peripheral neuropathy . Improved with Neurontin Recent history of brain hemorrhage associated with thrombocytopenia, one week prior to admission History of lung cancer since 2014, with metastasis to the liver and omental masses pelvic masses History of laryngeal cancer History of pulmonary embolism History of coronary artery disease Hypertension Hyperlipidemia GERD History of CVA/TIA Plan: This is a pleasant 53 years old female who presents with sepsis, rule out urinary tract infection. Continue with antibiotics. Appreciate infectious disease consult. Consult oncology team. , monitor hemoglobin and platelet count. Consult GI team for possible GI bleed. Start iron Labs and medication were reviewed.. Continue same treatment. Continue with symptomatic treatment. Resume home medication. Monitor lytes and vitals. DVT and GI prophylaxis. Further recommendations of the clinical course of the patient DVT prophylaxis: no heparin in view of recent cerebral hemorrhage, also thrombocytopenia GI Prophylaxis: Pepcid PT/OT: Pending Prognosis is guarded
--- NOTE | 2019-02-12 17:04 | PN ---
PROGRESS NOTE DATE OF DICTATION: 02/12/2019 The patient is a 53-year-old pleasant white female admitted to the hospital with urosepsis and presently on IV broad-spectrum antibiotics and doing much better. While in the hospital she was noted to have anemia with a hemoglobin of 6.9 and hence she was seen on consultation yesterday. Iron studies were requested, which showed ferritin of 249, iron saturation of 10%. The patient denies any abdominal symptoms. No nausea, vomiting. No abdominal pain. No rectal bleeding. Stool occult blood was noted to be positive. Last colonoscopy a year and a half ago was normal. PHYSICAL EXAMINATION: She appears comfortable. No apparent distress. VITAL SIGNS: Stable. Blood pressure is 110/66, pulse rate 80, temperature 98. HEENT examination unremarkable. Conjunctivae pink. Sclerae anicteric. Oral cavity no lesions. NECK: No JVD or lymph node enlargement. CHEST: Clear to auscultation. HEART: Regular rate and rhythm. ABDOMEN: Soft. Bowel sounds are positive. EXTREMITIES: No pedal edema. SKIN: No rashes. NEUROLOGIC: She is alert and oriented x3. No focal deficits. LABS FROM TODAY: WBC 9, hemoglobin 9.5, platelets 31,000. BUN 5, creatinine 0.8. Stool occult blood was positive. IMPRESSION: 1. Normocytic anemia with positive occult blood, but clinically no evidence of active bleeding. Colonoscopy a year and a half ago was unremarkable. 2. Recurrent metastatic non-small lung cancer, presently on chemotherapy. Follows with Dr. Dove. 3. Thrombocytopenia, probably related to ongoing chemotherapy, but other etiologies are being considered. Dr. Fatima is following the patient closely. RECOMMENDATIONS: Since the hemoglobin is stable, I will not plan any endoscopic intervention during this hospitalization. However, we will monitor her CBC on a daily basis and we will follow her closely. Thank you for this consultation. MMODL / IJN: [id number] /
[2019-02-12 20:12] LABS: Glucose,Whole Blood 102 mg/dL (75-99)
[2019-02-12] MEDS: ATORVASTATIN 80 MG TAB PO SCH (21:48)
--- NOTE | 2019-02-12 23:18 | PN ---
PROGRESS NOTE DATE OF SERVICE: 02/12/2019. REASON FOR FOLLOWUP: 1. UTI. 2. Oral thrush. INTERVAL HISTORY: The patient is currently afebrile. She has been breathing comfortably. She has been complaining of sores in the mouth and thrush. No difficulty swallowing though. No chest pain. No cough. No abdominal pain. No diarrhea. PHYSICAL EXAMINATION: Blood pressure is 93/65 with a pulse of 99, temperature 98.3. She is 99% on room air. General description is a middle-aged female up in the bed in no distress. HEENT: Shows extensive thrush. Lungs unlabored breathing with decreased breath sounds in the bases. No wheeze. Heart S1, S2. Regular rate and rhythm. Abdomen soft, no tenderness. LABS: BUN of 5, creatinine 0.84, hemoglobin 9.5, white count 9.0. DIAGNOSTIC IMPRESSION AND PLAN: 1. Patient admitted to the hospital with fever and weakness with positive UA, and concern for urinary tract infection, though clinically improved. Blood culture remains to be negative. Continue with Rocephin. 2. Oral thrush. Nystatin swish and swallow will be added and monitor clinical course closely. MMODL / IJN: [id number] /
[2019-02-13] MEDS: GABAPENTIN 100 MG CAP PO SCH ×3 (08:20→21:04)
[2019-02-13] MEDS: PANTOPRAZOLE 40 MG TABLET PO SCH ×2 (08:20→19:20)
[2019-02-13] MEDS: FOLIC ACID 1 MG TAB PO SCH (08:20)
[2019-02-13] MEDS: SODIUM CHLORIDE 0.9% 1,000 ML IV SCH ×3 (08:20→14:22)
[2019-02-13] MEDS: NYSTATIN 100,000 UNIT/ML SUSP 500,000 UNIT/5 ML CUP PO SCH ×4 (08:21→23:44)
[2019-02-13] MEDS: levETIRAcetam 500 MG TAB PO SCH ×2 (08:21→21:04)
[2019-02-13] MEDS: MAGNESIUM OXIDE 400 MG TAB PO SCH ×3 (08:21→21:06)
[2019-02-13] MEDS: oxyCODONE-APAP 10-325MG 1 EACH TAB PO PRN (08:21)
--- NOTE | 2019-02-13 12:01 | P.PN ---
Subjective Progress Note Date: 02/13/19 Principal diagnosis: Anemia, hypotension This is a 53-year-old female patient got transferred to the intensive care unit because of hypotension. On the floor, the patient was running at a lower blood pressure and for that reason was requested for this patient to get transferred to the ICU. She has a previous history of metastatic adenocarcinoma of the lung. She was diagnosed back in 2016. In fact I did her original transbronchial biopsy for a right lower lobe mass that was measuring 2.8 x 2.4 x 2 cm in size. The biopsy was positive for poorly differentiated adenocarcinoma, EGFR and ROS 1 negative. The patient underwent a right lower lobe resection that was done at [facility]. Following that the patient received adjuvant chemotherapy with a combination of cisplatin and and Alimta was recommended. However, the patient decided not to go through with treatment. He was monitored and she developed recurrent disease with metastases. This developed in July 2018. She was also diagnosed having an early stage laryngeal cancer that was treated with radiation therapy. Note that in July 2018 the patient presented with a pelvic mass and liver lesions as well as omental mass. Biopsies at that time from the liver and gastric fluid analysis came back p ositive for adenocarcinoma. The PD1 was strongly positive. The patient was started on a combination of carboplatinum, Alimta and Keytruda and she received several cycles. The patient also is known to have coronary artery disease, hypertension and hyperlipidemia and previous history of CVA and previous history of pulmonary embolism. The patient last week was also found to have a small area of h emorrhage in her brain was treated with thrombocytopenia and no intervention was needed. At that time she was referred to [facility] where she underwent further investigation. She was taken off anticoagulation. Her platelet counts remain low and during this current admission the platelet count was initially at 41. The rest of the coagulation profile was within normal limits. She came to the hospital because of fever. She was complaining of pain in her lower extremities for the past 3-4 days. She had difficulties and standing up and her weakness had gotten significantly worse and the patient also developed significant diminishment in her appetite. No chest pain. No abdominal pain. No changes in bowel or urine habits. The patient was tachycardic at time of admission with a heart rate of 105. She had a low grade temperature of 99.2. Her blood pressure was in 0 57. White cell count was at 12.3 and hemoglobin was at 9 with an INR of 1.3 and a creatinine of 0.9. CAT scan of the brain showed no evidence of any acute intracranial process and there was no evidence of any acute bleeding. The patient was suspected to have UTI. She was started on antibiotics and she is currently taking Rocephin 1 g every 24 hours. She is also on normal saline at the rate of 150 mL an hour. Her most recent blood pressure 94/61 the patient did not require any pressors. Current pulse ox is 99% on room air. The venous Doppler of the lower extremities are negative for DVT. Upon subsequent following, the hemoglobin from this morning came down at 6.9. The patient reported some black stools. No clear evidence of any upper or lower GI bleed however. He has already received a total of 2 L of IV fluids. The serum bicarbs at 18. Renal function is stable. No respiratory difficulties she is currently on room air oxygen. No cough or sputum production. Most recent CAT scan of the chest that was done on 01/28/2019 showed emphysema. There was moderate degree of emphysema. There is also no mediastinal lymphadenopathy. 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 The patient is not taking any systemic chemotherapy or immunotherapy for the time being. On 02/11/2019 patient seen in follow-up on medical surgical floor. She is awake and alert, in no acute distress, she has been transferred out of the intensive care unit, and she is doing well on medical surgical floor, she is afebrile, she denies any episodes of hematemesis, or any blood in the stool, pressure stable, at 106/70, room air pulse ox is 90%, she denies any difficulty breathing, no cough or congestion. She received and of packed red blood cells on admission for hemoglobin of 6.9, today's lab work has been reviewed revealing hemoglobin of 9.3, platelet count is 36, serum sodium is 139, potassium is 4.3, chloride is 113, CO2 is 19, B1 is 5 and creatinine 0.76. SErum cortisol level was only 8, urinalysis showed of moderate leukocyte esterase, and increased urine white blood cell count asking urinary tract infection, urine and blood culture showed no growth. Current antibiotic coverage is with ceftriaxone, patient is without any specific complaints, her IV fluids are infusing at a rate of 50 ML per hour, she denies any fever or chills, denies any chest pain. Lung sounds are clear. The patient is seen today 02/12/2019 in follow-up on the regular medical floor. She is awake and alert in no acute distress. She is currently sitting up at the bedside. Denies any worsening shortness of breath, cough or congestion. Maintaining good O2 saturations in the upper 90s on room air. She's afebrile. Slightly tachycardic. She is status post 1 unit of packed red blood cells this admission. Hemoglobin 9.5. Platelet count 31,000. White count 9.0. C reatinine 0.84. Urine and blood cultures reveal no growth. Stool for occult blood is positive. She did have black tarry stool this morning. The patient is seen today 02/13/2019 in follow-up on the regular medical floor. She is currently sitting up at bedside. Awake and alert in no acute distress. She is anxious to go home. She denies any worsening shortness of breath, cough or congestion. Maintaining good O2 saturation in the 90s on room air. Blood culture reveals no growth. Urine culture reveals no growth. She had been seen by GI services with no plans for intervention at this time. She is anxious to go home. Objective - Vital Signs Vital signs: Vital Signs Temp 98.8 F 02/13/19 04:36 Pulse 93 02/13/19 04:36 Resp 18 02/13/19 04:36 BP 106/69 02/13/19 04:36 Pulse Ox 96 02/13/19 04:36 Intake & Output 02/12/19 02/13/19 02/13/19 18:59 06:59 18:59 Intake Total 935 Output Total 800 Balance -800 935 Intake: IV 575 Sodium Chloride 0.9% 1, 575 000 ml @ 150 mls/hr IV . Q6H40M [facility] Rx#:[id number] Oral 360 Output: Urine 800 Other: Voiding Method Toilet Toilet # Voids 1 1 - Exam GENERAL EXAM: Alert, pleasant, 53-year-old female patient, on room air comfortable in no apparent distress. HEAD: Normocephalic/atraumatic. EYES: Normal reaction of pupils, equal size. Conjunctiva pink, sclera white. NOSE: Clear with pink turbinates. THROAT: No erythema or exudates. NECK: No masses, no JVD, no thyroid enlargement, no adenopathy. CHEST: Right Mediport in place. No chest wall deformity. Symmetrical expansion. LUNGS: Equal air entry with no crackles, wheeze, rhonchi or dullness. CVS: Regular rate and rhythm, normal S1 and S2, no gallops, no murmurs, no rubs ABDOMEN: Soft, nontender. No hepatosplenomegaly, normal bowel sounds, no guarding or rigidity. EXTREMITIES: No clubbing, no edema, no cyanosis, 2+ pulses and upper and lower extremities. MUSCULOSKELETAL: Muscle strength and tone normal. SPINE: No scoliosis or deformity SKIN: No rashes CENTRAL NERVOUS SYSTEM: No focal deficits, tone is normal in all 4 extremities. PSYCHIATRIC: Alert and oriented -3. Appropriate affect. Intact judgment and insight. - Labs CBC & Chem 7: 02/12/19 06:44 02/12/19 06:44 Labs: Abnormal Lab Results - Last 24 Hours (Table) 02/12/19 Range/Units 20:11 POC Glucose (mg/dL) 102 H (75-99) mg/dL Microbiology - Last 24 Hours (Table) 02/09/19 15:00 Blood Culture - Preliminary Blood No Growth after 72 hours Assessment and Plan Assessment: Impression: 1 hypotension for which the patient got transferred to the intensive care unit and this is being further investigated. Exact cause is not clear. Consider bleeding possibly a GI bleed as the patient's hemoglobin dropped from 9 down to 6.9. Note that the patient also is thrombocytopenic and this will be an excellent set up for bleeding. Current hemoglobin 9.5. No plans for intervention per GI services. Blood and urine cultures reveal no growth. 2 stage IV metastatic adenocarcinoma of the lung post right lower lobe resection, post systemic chemotherapy utilizing a combination of carboplatinum and Alimta and Keytruda and the patient has been off treatment since October 2018 3 small right-sided pleural effusion 4 COPD currently inactive in stable 5 subarachnoid bleeding attributed to thrombocytopenia and anticoagulation. The patient is currently off Eliquis and the plated count is 30 this morning. The CAT scan of the brain showed resolution of the previously described subarachnoid bleeding and she does not have any acute neurological deficits. 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 New. She remains stable from the pulmonary and critical care standpoint. On room air. She is cleared for discharge once cleared medically. I, the cosigning physician, performed a history & physical examination of the patient. Lungs sounds are clear. Maintaining good O2 saturations in the 90s on room air. I discussed the assessment and plan of care with my nurse practitioner, Mera Ashley. I attest to the above note as dictated by her.
--- NOTE | 2019-02-13 12:01 | P.PN ---
Subjective Progress Note Date: 02/13/19 Principal diagnosis: UTI Concern for GI blood loss, hemoglobin pending for today. She has severe thrush, on nystatin add clomatrazole. There was question of progression in liver. She is still confused at times and her requests appear to be contradicting. Will need repeat MRI Brain and will further assess abdominal ultrasound of liver. She states the percocet makes her too loopy, dilaudid IV works better although now she has fentanyl patch back on. Will decrease dose percocet, and only if absolutely needed can have IV Dilaudid. Objective - Vital Signs Vital signs: Vital Signs Temp 98.8 F 02/13/19 04:36 Pulse 93 02/13/19 04:36 Resp 18 02/13/19 04:36 BP 106/69 02/13/19 04:36 Pulse Ox 96 02/13/19 04:36 Intake & Output 02/12/19 02/13/19 02/13/19 18:59 06:59 18:59 Intake Total 935 Output Total 800 Balance -800 935 Intake: IV 575 Sodium Chloride 0.9% 1, 575 000 ml @ 150 mls/hr IV . Q6H40M [facility] Rx#:[id number] Oral 360 Output: Urine 800 Other: Voiding Method Toilet Toilet # Voids 1 1 - Exam General: Alert and Oriented x3, No Acute Distress confused at times Head: Normocytic, Atraumatic Neck: Supple Mouth: severe thrush Eyes: Non-sclerotic No Palpable cervical, supraclavicular, axillary adenopathy Heart: Regular Rate, Regular Rhythm Lungs: Clear to Ausculations, No Wheeze, No Rhonchi, Diminishe bilateral lower lobes, No increased respiratory effort noted Abdomen: Soft, Non-Distended, Non-Tended, BSx4 Extremities: No Edema, Equal Strength Neurological: No Focal Defects: Psych: Calm and cooperative - Labs CBC & Chem 7: 02/13/19 12:25 02/13/19 12:25 Labs: Abnormal Lab Results - Last 24 Hours (Table) 02/12/19 Range/Units 20:11 POC Glucose (mg/dL) 102 H (75-99) mg/dL Microbiology - Last 24 Hours (Table) 02/09/19 15:00 Blood Culture - Preliminary Blood No Growth after 72 hours Assessment and Plan Plan: Assessment and Plan Recurrent Metastatic non small cell lung cancer: - Most recently treated November 02 on Keytruda and Almta - Carboplatin, Almta and Keytruda completed in September2018. and Carboplatin was stopped for CT scan response shown and thrombocytopenia, although platlet did recover quickly. - concern for ?progression in liver - She will follow-up with Dr. Fatima outpatient regarding restarting Atmta and Keytruda Neoplastic related pain: - Follows with Dr. Valdez for management Recent Subarachnoid Hematoma versus CVA - Therefore Eliquis has been discontinued - She was admitted to [facility] and Evaluated by Neurosurgery - MRI at [facility] has been requested in office. Thrombocytopenia: Unknown etiology: - Most likely ITP although must consider other: - Platlets had been trending above 200K for past few months, although when the SDH was identified last month her platelet count had dropped to 16K. - Full work-up was completed and DIC was ruled out although Heparin induced thrombocytopenia was positive for antibody, which is rather rare as the only exposure to heprin was for periodic port flushes. A seratonin release assay was sent as the gold standard test last week, ran through [facility] [place], expected to have results within the next 1-2weeks. - Will discuss if treatment with Argantroban is recommended in picture of thrombotic event, thrombocytopenia, although complicated with bleed. - SR negative, concern ITP will start steroids Normocytic Anemia: Stable - Acute on Chronic secondary to acute GI blood loss - GI consulted to further evaluate. - Work-up in place. Anxious and confused at times Oral Candiasis: - Clomatrazole and nystatin as po antifungal contradicted Plan: - Follow-up with Dr. Fatima after discharge - Please restart fentanyl patch and continue on home pain regimen, she had been without her regular regimen. - IVC Filter for hypercoagulable state and inability to anticoagulate - Start Steroids for treatment of potential ITP - Treatment of THrush - Ultrasound of liver - Repeat imaging of brain
[2019-02-13] MEDS ORDERED: HYDROmorphone 1 MG/ML 1 ML SYRINGE IVP PRN (12:44)
[2019-02-13] MEDS ORDERED: oxyCODONE-APAP 5-325MG 1 EACH TAB PO PRN (12:46)
[2019-02-13 12:51] LABS: ALT 27 U/L (9-52); AST 47 U/L (14-36); African American GFR (CKD) >90 (>60 ml/min/1.73 sqM); Albumin 2.9 g/dL (3.5-5.0); Alkaline Phosphatase 105 U/L (38-126); Anion Gap 8 mmol/L; Blood Urea Nitrogen 5 mg/dL (7-17); Calcium 8.8 mg/dL (8.4-10.2); Carbon Dioxide 19 mmol/L (22-30); Chloride 111 mmol/L (98-107); Glucose 82 mg/dL (74-99); Potassium 4.2 mmol/L (3.5-5.1); Sodium 138 mmol/L (137-145); Total Bilirubin 0.3 mg/dL (0.2-1.3); Total Protein 5.8 g/dL (6.3-8.2)
[2019-02-13 12:58] LABS: Anisocytosis Slight; Basophils % (A) 0 %; Eosinophils # (A) 0.3 k/uL (0-0.7); Eosinophils % (A) 4 %; HCT 25.1 % (34.0-46.0); HGB 8.3 gm/dL (11.4-16.0); Hypochromasia Marked; Lymphocytes # (A) 0.8 k/uL (1.0-4.8); Lymphocytes % (A) 9 %; MCH 30.5 pg (25.0-35.0); MCV 92.2 fL (80.0-100.0); Monocytes # (A) 0.5 k/uL (0-1.0); Monocytes % (A) 6 %; Neutrophils # (A) 7.1 k/uL (1.3-7.7); Neutrophils % (A) 80 %; Poikilocytosis Slight; RBC 2.72 m/uL (3.80-5.40); RDW 16.2 % (11.5-15.5); WBC 8.8 k/uL (3.8-10.6)
[2019-02-13 13:01] LABS: Platelet Count 33 k/uL (150-450)
[2019-02-13] MEDS ORDERED: SODIUM CHLORIDE 0.9% 500 ML 500 ML IV ONE (13:06)
--- NOTE | 2019-02-13 13:09 | P.PN ---
Subjective This is a pleasant 53 years old female with past medical history of GERD, hyperlipidemia, hypertension, coronary artery disease, CVA/TIA, lung cancer diagnosed in 2014, history of pulmonary embolism . history of adenocarcinoma of the lung, status post lobectomy, on 04/2018 patient was diagnosed with stage laryngeal cancer, treated with radiation therapy. On 07/2018, patient was found to have liver lesions and omental masses and pelvic masses and found to have recurrent adenocarcinoma of her lung. On that time patient was found to have pulmonary embolism and she was placed on anticoagulation with some evidence of bleeding per vagina going on. Last week patient found to have small area of hemorrhage in the brain associated with thrombocytopenia, no intervention needed. Who presents because of fever. Patient also was complaining of from pain in her both legs and feet for about 3-4 days, patient says there was severe and preventing her from standing up, pain is continuous and any specific with no associated rash. Patient also denies headache. No chest pain or dyspnea. No abdominal pain. No change in urine or bowel habits. Also patient stating decreased appetite. Patient is mildly tachycardic at 105, she has low grade temperature of 99.2, blood pressure on the low side 93/57. Left showing leukocytosis of 12.3 K, hemoglobin 9, INR is 1.3, creatinine 0.9. Chest x-ray showed clear lungs. CAT scan of the brain: No evidence of acute intracranial process, however showing previous occipital craniotomy performed resolution of the left posterior subarachnoid bleed. EKG showing normal sinus rhythm at 100 UA is suspicious for infection In the emergency room patient was started on normal saline at 125 L/h 02/10/2019 Patient was hypotensive overnight and she was transferred to the ICU, she received several boluses of normal saline and her blood pressure get corrected and improved today is 135/90, she still tachycardic with heart rate of 111. Her hemoglobin dropped today from 9 down to 6.9, patient received 1 unit of blood transfusion, her that she is back to normal 7.8K, platelets dropped from 41 down to 30. Rest of BMP is unremarkable with creatinine 0.7, liver enzymes within normal. Patient still complaining from significant leg pain and gabapentin this started, pulmonary/critical care input is appreciated. Were going to do anemia workup. Doppler of the lower extremities negative for DVT 02/11/2019 Patient transferred to the general medical floor, her pain in her legs significantly improved, patient was started on Neurontin for her leg pain. Her blood pressure this morning is 108/79, heart rate is 59, patient had low-grade temperature yesterday of 99.0. Left showing stable hemoglobin at 9.3 after 1 unit of blood transfusion, patient is still thrombocytopenic and 36, creatinine is normal however aren't studies is suspicious for iron deficiency anemia, in combination with anemia of chronic disease which might be related to her cancer history or medical problems. Occult blood in his stool still pending. Patient states that she has regular bowel movement but is dark-colored, she denies abd ominal pain or nausea vomiting. We going to start iron pills. Infectious disease consult is appreciated, her Rocephin is interested 2 g daily. 02/12/2019 Patient was sitting in bed comfortable and smiling when I saw her, she reported that her leg pain is better but at times she got the arm pain, and also shoulder areas which is felt better when I saw her. Patient is mildly tachycardic at 105, however her blood pressure is 110/66, rest of Vitas looks stable and patient is afebrile. Left showing stable hemoglobin of 9.5, platelets still low at 31, sodium is 140, creatinine 0.8, and Hemoccult is positive. Pulmonary and oncology follow-up is appreciated. Patient have some concerns about her pain medicine, I explained to the patient's wound going to taper her Dilaudid from 2 mg by mouth yesterday to 1 mg today and tomorrow. It and she agrees. She has leg pain which is mostly neuropathic pain were going to increase it her Neurontin to 200 and 3 times a day for better pain control. Oncology team evaluated the patient and recommended to restart fentanyl patch as well. Risk of narcotics including but not limited to cardiopulmonary arrest and are explained for the patient and she verbalized understanding and acceptance. GI team were consulted 02/13/2019 Patient is lying in bed comfortable but she smiling, not in distress her pain is controlled after restarting her fentanyl patch. His leg pain is also controlled, however her blood pressure on the low side 88/66, hemoglobin is slightly dropped to 8.3, however patient with no dizziness. We'll give her a bolus of 500 mL and increase her normal saline to 150 mm per hour, and follow up her hemoglobin. GI service R following the case Objective - Vital Signs Vital signs: Vital Signs Temp 98.4 F 02/13/19 11:18 Pulse 76 02/13/19 11:59 Resp 16 02/13/19 11:18 BP 88/66 02/13/19 11:59 Pulse Ox 97 02/13/19 11:59 Intake & Output 02/12/19 02/13/19 02/13/19 18:59 06:59 18:59 Intake Total 935 Output Total 800 Balance -800 935 Intake: IV 575 Sodium Chloride 0.9% 1, 575 000 ml @ 150 mls/hr IV . Q6H40M [facility] Rx#:[id number] Oral 360 Output: Urine 800 Other: Voiding Method Toilet Toilet # Voids 1 1 - Exam GENERAL: The patient is alert and oriented x3, not in any acute distress. Well developed, well nourished. HEENT: Pupils are round and equally reacting to light. EOMI. No scleral icterus. No conjunctival pallor. Normocephalic, atraumatic. No pharyngeal erythema. No thyromegaly. CARDIOVASCULAR: S1 and S2 present. No murmurs, rubs, or gallops. PULMONARY: Chest is clear to auscultation, no wheezing or crackles. ABDOMEN: Soft, nontender, nondistended, normoactive bowel sounds. No palpable organomegaly. MUSCULOSKELETAL: No joint swelling or deformity. EXTREMITIES: No cyanosis, clubbing, or pedal edema. Bilateral lower extremity tenderness NEUROLOGICAL: Gross neurological examination did not reveal any focal deficits. SKIN: No rashes. No petechiae - Labs CBC & Chem 7: 02/13/19 12:25 02/13/19 12:25 Labs: Abnormal Lab Results - Last 24 Hours (Table) 02/12/19 02/13/19 02/13/19 Range/Units 20:11 12:25 12:25 RBC 2.72 L (3.80-5.40) m/uL Hgb 8.3 L (11.4-16.0) gm/dL Hct 25.1 L (34.0-46.0) % RDW 16.2 H (11.5-15.5) % Plt Count 33 L (150-450) k/uL Lymphocytes # 0.8 L (1.0-4.8) k/uL Chloride 111 H (98-107) mmol/L Carbon Dioxide 19 L (22-30) mmol/L BUN 5 L (7-17) mg/dL POC Glucose (mg/dL) 102 H (75-99) mg/dL AST 47 H (14-36) U/L Total Protein 5.8 L (6.3-8.2) g/dL Albumin 2.9 L (3.5-5.0) g/dL Microbiology - Last 24 Hours (Table) 02/09/19 15:00 Blood Culture - Preliminary Blood No Growth after 72 hours Assessment and Plan Assessment: Acute anemia, status post blood transfusion, possible combination of and deficiency anemia and anemia of chronic disease Acute urinary tract infection Systemic inflammatory response syndrome with leukocytosis of 12.3 K, and tachycardia Possible Sepsis secondary to above Bilateral leg pain, Doppler is negative for DVT. Possible peripheral neuropathy . Improved with Neurontin Recent history of brain hemorrhage associated with thrombocytopenia, one week prior to admission History of lung cancer since 2014, with metastasis to the liver and omental masses pelvic masses History of laryngeal cancer History of pulmonary embolism History of coronary artery disease Hypertension Hyperlipidemia GERD History of CVA/TIA Plan: This is a pleasant 53 years old female who presents with sepsis, rule out urinary tract infection. Continue with antibiotics. Continue with IV fluids. Appreciate infectious disease consult. Consult oncology team. , monitor hemoglobin and platelet count. Consult GI team for possible GI bleed. Start iron. Labs and medication were reviewed.. Continue same treatment. Continue with symptomatic treatment. Resume home medication. Monitor lytes and vitals. DVT and GI prophylaxis. Further recommendations of the clinical course of the patient DVT prophylaxis: no heparin in view of recent cerebral hemorrhage, also thrombocytopenia GI Prophylaxis: Pepcid PT/OT: Pending Prognosis is guarded
[2019-02-13] MEDS: methylPREDNISolone SOD SUCCI 125 MG/2 ML VIAL IV SCH ×2 (14:19→21:05)
[2019-02-13] MEDS: FERROUS SULFATE 325 MG TAB PO SCH (14:19)
[2019-02-13] MEDS: CLOTRIMAZOLE TROCHE 10 MG TROCHE MUCOUS MEM SCH ×2 (15:55→19:20)
--- NOTE | 2019-02-13 19:23 | MR ---
EXAMINATION TYPE: MR brain wo/w con DATE OF EXAM: 02/13/2019 COMPARISON: 10/25/2018 HISTORY: recent CVA and occi bleed confusion TECHNIQUE: Multiplanar, multisequence images of the brain and brainstem is performed without and with IV contras t, utilizing 6.5 mL intravenous Gadavist . FINDINGS: Ventricles have normal size. There is no mass effect nor midline shift. There is no sign of intracran ial hemorrhage. Diffusion images show a small 6 mm focus of slight increased signal in the white meka er left parietal lobe. On the FLAIR images there is gyriform 3 cm area of increased signal in the lef t posterior temporal lobe consistent with subacute infarct. This has more normal signal pattern on th e diffusion images. There is no midline shift. There is no sign of intracranial hemorrhage. There is 8 mm focus of increased signal on FLAIR images right posterior frontal lobe white matter. There is 6 mm similar white matter focus right frontal lobe. The brainstem is intact. There is some mucosal thic kening left maxillary sinus. The contrast images show gyriform enhancement of the left posterior temporal lobe consistent with sub acute infarct. There is normal contrast opacification of the venous sinuses. Sella turcica appears no rmal. Corpus callosum appears normal. IMPRESSION: There is evidence of acute white matter lacunar infarct left parietal lobe and right post erior frontal lobe and right frontal lobe on the diffusion images. There is evidence of subacute hina ical infarct left posterior temporal lobe. Infarcts appear new compared to old MR scan of 10/25/2018. No evidence of metastatic disease.
[2019-02-13] MEDS: ATORVASTATIN 80 MG TAB PO SCH (21:04)
[2019-02-13] MEDS: HYDROmorphone 0.5 MG/0.5 ML SYRINGE IVP PRN (21:05)
--- NOTE | 2019-02-13 22:00 | CONS ---
DATE OF CONSULTATION: 02/13/2019 This is a 53-year-old, pleasant female. Patient was seen on consult for placement of possible filter. The patient has a recurrent metastatic non-small cell lung cancer. The patient has been treated with chemotherapy under the care of Dr. Fatima. The patient also has a history of laryngeal cancer and lung cancer. The patient also history of PE in the past. She has some history of GI blood loss and hemoglobin has dropped. She has a very low platelet count about 16,000. The patient was seen in her room. Neck is supple. Chest is clear. Abdomen is soft. Femorals are 1+. PLAN: I will discuss with oncology. If the patient is put in rehab, we will arrange for platelet count because platelet count is low. After discussing with Oncology, if the patient agrees, we will place filter. Follow with you. Thank you very much for this consultation. CYN / ISISN: [id number] / MTDD
--- NOTE | 2019-02-13 22:41 | PN ---
PROGRESS NOTE DATE OF SERVICE: 02/13/2019 REASON FOR FOLLOWUP: 1. Possible UTI. 2. Oral thrush. INTERVAL HISTORY: The patient is currently afebrile. The patient is breathing comfortably. The patient's sore throat has improved. No nausea, no vomiting, no abdominal pain and no diarrhea. PHYSICAL EXAMINATION: Blood pressure is 101/67 with a pulse of 98, temperature 99.4. She is 96% on 2 L nasal cannula. General description is a middle-aged female up in the bed in no distress. HEENT EXAMINATION: Oral thrush has improved. LUNGS: Unlabored breathing. Decreased breath sounds in the bases. No wheeze. HEART: S1, S2. Regular rate and rhythm. ABDOMEN: Soft. No tenderness. LABS: Hemoglobin 8.3, white count 8.8. BUN of 5, creatinine 0.80. DIAGNOSTIC IMPRESSION AND PLAN: 1. Patient admitted to hospital with weakness, lethargy and concern for urinary tract infection, positive urinalysis. Patient's underlying infection has been adequately treated. Recommend discontinuing Rocephin on discharge. 2. Patient with oral thrush. Nystatin swish and swallow to continue for about a week. MMODL / IJN: [id number] /
[2019-02-14] MEDS: CLOTRIMAZOLE TROCHE 10 MG TROCHE MUCOUS MEM SCH ×5 (00:04→20:33)
[2019-02-14] MEDS: SODIUM CHLORIDE 0.9% 1,000 ML IV SCH ×5 (05:46→22:04)
[2019-02-14] MEDS: GABAPENTIN 100 MG CAP PO SCH ×3 (08:24→20:33)
[2019-02-14] MEDS: FOLIC ACID 1 MG TAB PO SCH (08:24)
[2019-02-14] MEDS: PANTOPRAZOLE 40 MG TABLET PO SCH ×2 (08:24→17:41)
[2019-02-14] MEDS: MAGNESIUM OXIDE 400 MG TAB PO SCH ×3 (08:25→20:33)
[2019-02-14] MEDS: NYSTATIN 100,000 UNIT/ML SUSP 500,000 UNIT/5 ML CUP PO SCH ×4 (08:25→22:04)
[2019-02-14] MEDS: methylPREDNISolone SOD SUCCI 125 MG/2 ML VIAL IV SCH ×2 (08:25→20:34)
[2019-02-14] MEDS: levETIRAcetam 500 MG TAB PO SCH ×2 (08:25→20:33)
--- NOTE | 2019-02-14 08:53 | US ---
EXAMINATION TYPE: US abdomen complete DATE OF EXAM: 02/14/2019 COMPARISON: CT 01/07/2019 CLINICAL HISTORY: assess liver ? metastatic disease. Abdomen pain, liver lesions seen on recent CT, e xam done portable. Known lung cancer. EXAM MEASUREMENTS: Liver Length: 16.5 cm Gallbladder Wall: 0.2 cm CBD: 0.4 cm Spleen: 9.1 cm Right Kidney: 9.5 x 4.7 x 4.5 cm Left Kidney: 9.9 x 4.7 x 4.2 cm Pancreas: visualized portions wnl, limited by overlying midline bowel gas Liver: heterogeneous with multiple lesions seen throughout with largest in left lobe measuring 4.2 x 2.5 x 4.0cm Gallbladder: small 0.3cm echogenic focus seen along posterior wall. Likely small calculus. Evidence for sonographic Frederick's sign: no CBD: wnl Spleen: wnl Right Kidney: wnl Left Kidney: 2.4 x 1.9 x 1.8cm exophytic cystic area medial mid pole Upper IVC: wnl Abd Aorta: atherosclerotic changes Small amount of fluid seen in RUQ adjacent to gallbladder Small amount of fluid seen in LUQ adjacent to spleen The liver is diffusely heterogenous with multiple masses. The intrahepatic portion of the IVC and pro ximal abdominal aorta are within normal limits. Common bile duct is unremarkable. The visualized por tions of the pancreas are homogenous. The spleen is unremarkable. Kidneys are symmetric and free of hydronephrosis. IMPRESSION: 1. Multiple hepatic masses are seen, these should be considered metastatic disease until proven other bravo. The largest measures up to 4.2 cm and the left hepatic lobe. 2. Cholelithiasis without sonographic evidence of acute cholecystitis. 3. Small amount of ascites.
[2019-02-14] MEDS: HYDROmorphone 0.5 MG/0.5 ML SYRINGE IVP PRN (08:58)
--- NOTE | 2019-02-14 09:44 | CDI ---
Documentation Clarification Form Date: 02/14/2019 9:03:50 AM From: Lara Farr RN, CCDS Admit Date: 02/09/2019 2:44:00 PM Patient Name: Norma Krishna Visit Number: [id number] Discharge Date: ATTENTION: The Clinical Documentation Specialists (CDI) and [facility] Coding Staff appreciate your assistance in clarifying documentation. Please respond to the clarification below the line at the bottom and electronically sign. The CDI & [facility] Coding staff will review the response and follow-up if needed. Please note: Queries are made part of the Legal Health Record. If you have any questions, please contact the author of this message via ITS. Dr. Lucian Chen 02/10/19 Hypotension is documented in your consult and the ongoing progress notes. 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 with the cause not clear. Consider bleeding possibly a GI bleed as the patient's hemoglobin dropped from 9 down to 6.9. Note that the patient also is thrombocytopenic with admission PLT count of 41. Fecal occult blood was positive. Vitals: 02/09/19at 22:50: Lt arm 93/61 71, Rt arm 82/58 66, blood pressure mean: 78/66 66 heart rate 106 02/10/19 at 00:45 82/52 100 19 Treatment: ICU Monitoring IV Fluid bolus x2, IV Fluids 150 mis hr 1 Unit PRBC Monitor CBC 02/10/19 Attending (Dr. Kumar) H/P: Acute UTI, systemic inflammatory response syndrome with leukocytosis of 12.3, and tachycardia, possible sepsis. 02/13/19 Oncology: Concern for GI blood loss. Normocytic anemia acute on chronic secondary to acute GI blood loss. work-up in place In your professional opinion, can you please specify if the Hypotension could possibly be related to? Hypovolemic Shock Hemorrhagic shock Other, please specify Unable to determine (Last Revision: February 2017) Hemorrhagic shock MTDD
--- NOTE | 2019-02-14 11:39 | P.PN ---
Subjective This is a pleasant 53 years old female with past medical history of GERD, hyperlipidemia, hypertension, coronary artery disease, CVA/TIA, lung cancer diagnosed in 2014, history of pulmonary embolism . history of adenocarcinoma of the lung, status post lobectomy, on 04/2018 patient was diagnosed with stage laryngeal cancer, treated with radiation therapy. On 07/2018, patient was found to have liver lesions and omental masses and pelvic masses and found to have recurrent adenocarcinoma of her lung. On that time patient was found to have pulmonary embolism and she was placed on anticoagulation with some evidence of bleeding per vagina going on. Last week patient found to have small area of hemorrhage in the brain associated with thrombocytopenia, no intervention needed. Who presents because of fever. Patient also was complaining of from pain in her both legs and feet for about 3-4 days, patient says there was severe and preventing her from standing up, pain is continuous and any specific with no associated rash. Patient also denies headache. No chest pain or dyspnea. No abdominal pain. No change in urine or bowel habits. Also patient stating decreased appetite. Patient is mildly tachycardic at 105, she has low grade temperature of 99.2, blood pressure on the low side 93/57. Left showing leukocytosis of 12.3 K, hemoglobin 9, INR is 1.3, creatinine 0.9. Chest x-ray showed clear lungs. CAT scan of the brain: No evidence of acute intracranial process, however showing previous occipital craniotomy performed resolution of the left posterior subarachnoid bleed. EKG showing normal sinus rhythm at 100 UA is suspicious for infection In the emergency room patient was started on normal saline at 125 L/h 02/10/2019 Patient was hypotensive overnight and she was transferred to the ICU, she received several boluses of normal saline and her blood pressure get corrected and improved today is 135/90, she still tachycardic with heart rate of 111. Her hemoglobin dropped today from 9 down to 6.9, patient received 1 unit of blood transfusion, her that she is back to normal 7.8K, platelets dropped from 41 down to 30. Rest of BMP is unremarkable with creatinine 0.7, liver enzymes within normal. Patient still complaining from significant leg pain and gabapentin this started, pulmonary/critical care input is appreciated. Were going to do anemia workup. Doppler of the lower extremities negative for DVT 02/11/2019 Patient transferred to the general medical floor, her pain in her legs significantly improved, patient was started on Neurontin for her leg pain. Her blood pressure this morning is 108/79, heart rate is 59, patient had low-grade temperature yesterday of 99.0. Left showing stable hemoglobin at 9.3 after 1 unit of blood transfusion, patient is still thrombocytopenic and 36, creatinine is normal however aren't studies is suspicious for iron deficiency anemia, in combination with anemia of chronic disease which might be related to her cancer history or medical problems. Occult blood in his stool still pending. Patient states that she has regular bowel movement but is dark-colored, she denies abd ominal pain or nausea vomiting. We going to start iron pills. Infectious disease consult is appreciated, her Rocephin is interested 2 g daily. 02/12/2019 Patient was sitting in bed comfortable and smiling when I saw her, she reported that her leg pain is better but at times she got the arm pain, and also shoulder areas which is felt better when I saw her. Patient is mildly tachycardic at 105, however her blood pressure is 110/66, rest of Vitas looks stable and patient is afebrile. Left showing stable hemoglobin of 9.5, platelets still low at 31, sodium is 140, creatinine 0.8, and Hemoccult is positive. Pulmonary and oncology follow-up is appreciated. Patient have some concerns about her pain medicine, I explained to the patient's wound going to taper her Dilaudid from 2 mg by mouth yesterday to 1 mg today and tomorrow. It and she agrees. She has leg pain which is mostly neuropathic pain were going to increase it her Neurontin to 200 and 3 times a day for better pain control. Oncology team evaluated the patient and recommended to restart fentanyl patch as well. Risk of narcotics including but not limited to cardiopulmonary arrest and are explained for the patient and she verbalized understanding and acceptance. GI team were consulted 02/13/2019 Patient is lying in bed comfortable but she smiling, not in distress her pain is controlled after restarting her fentanyl patch. His leg pain is also controlled, however her blood pressure on the low side 88/66, hemoglobin is slightly dropped to 8.3, however patient with no dizziness. We'll give her a bolus of 500 mL and increase her normal saline to 150 mm per hour, and follow up her hemoglobin. GI service R following the case 02/14/2019 Patient is resting comfortably with no chest pain or dyspnea, her leg pain is improved. She is fully awake and oriented and not in distress. Her blood pressure improved from yesterday 88/66 yesterday up to 110/75 daily, rest of Vitas looks stable. Lap showing slight lower hemoglobin at 8.3, creatinine within normal limits, and other lites are normal including potassium and sodium. Cultures show no growth so far. Abdominal ultrasound showing multiple hepatic masses suspicious for metastasis, the larger is 4.2 cm, gallstones with no evidence of cholecystitis. MRI of the brain showing acute white matter lacunar infarct in the left parietal lobe and right frontal lobe. Also because they recommended. IVC filter, discussed the case with Dr. Kingston who is going to review with oncology team and indication for the filter in view of thrombocytopenia.. Her platelet today is 33 while she was started on Solu- Medrol yesterday Review of systems CONSTITUTIONAL: No fever, no malaise, no fatigue. HEENT: No recent visual problems or hearing problems. Denied any sore throat. CARDIOVASCULAR: No orthopnea, PND, no palpitations, no syncope. PULMONARY: No shortness of breath, no cough, no hemoptysis. GASTROINTESTINAL: No diarrhea, no nausea, no vomiting, no abdominal pain. Normoactive bowel sounds. NEUROLOGICAL: No headaches, no weakness, no numbness. HEMATOLOGICAL: Denies any bleeding or petechiae. GENITOURINARY: Denies any burning micturition, frequency, or urgency. MUSCULOSKELETAL/RHEUMATOLOGICAL: Denies any joint pain, swelling, or any muscle pain. ENDOCRINE: Denies any polyuria or polydipsia. Active Medications Generic Name Dose Route Start Last Admin Trade Name Freq PRN Reason Stop Dose Admin Atorvastatin Calcium 80 mg 02/09/19 21:00 02/13/19 21:04 Lipitor PO 80 mg HS NAINA Administration Clotrimazole 10 mg 02/13/19 16:00 02/14/19 09:41 Mycelex Carlie MUCOUS MEM Not Given 5XD NAINA Fentanyl 1 patch 02/09/19 18:00 02/12/19 16:09 Duragesic 12mcg/Hr Patch TRANSDERM 1 patch Q72H NAINA Administration Ferrous Sulfate 325 mg 02/11/19 12:30 02/13/19 14:19 Feosol PO 325 mg W/LUNCH NAINA Administration Folic Acid 1 mg 02/10/19 09:00 02/14/19 08:24 Folic Acid PO 1 mg DAILY [facility] Administration Gabapentin 200 mg 02/12/19 22:00 02/14/19 08:24 Neurontin PO 200 mg TID [facility] Administration Hydromorphone HCl 0.5 mg 02/13/19 19:15 02/14/19 08:58 Dilaudid IVP 0.5 mg Q8HR PRN Administration SEVERE Pain Sodium Chloride 1,000 mls @ 150 mls/hr 02/09/19 14:45 02/14/19 05:53 Saline 0.9% IV Not Given .Q6H40M NAINA Ceftriaxone Sodium 2 gm/ 50 mls @ 100 mls/hr 02/10/19 21:00 02/13/19 21:05 Sodium Chloride IVPB 100 mls/hr Q24H [facility] Administration Levetiracetam 500 mg 02/09/19 21:00 02/14/19 08:25 Keppra PO 500 mg BID [facility] Administration Magnesium Oxide 400 mg 02/09/19 22:00 02/14/19 08:25 Mag-Ox PO 400 mg TID [facility] Administration Methylprednisolone Sodium Succinate 60 mg 02/13/19 14:00 02/14/19 08:25 Solu-Medrol IV 60 mg Q12HR [facility] Administration Naloxone HCl 0.2 mg 02/09/19 14:44 Narcan IV Q2M PRN Opioid Reversal Nystatin 500,000 unit 02/12/19 13:30 02/14/19 08:25 Mycostatin Oral Susp PO 500,000 unit QID [facility] Administration Ondansetron HCl 4 mg 02/09/19 17:50 Zofran Odt PO Q8HR PRN Nausea Oxycodone/Acetaminophen 1 each 02/13/19 12:46 Percocet 5-325 PO Q4HR PRN MODERATE Pain Pantoprazole Sodium 40 mg 02/13/19 17:30 02/14/19 08:24 Protonix PO 40 mg AC-BID [facility] Administration Senna 8.6 mg 02/09/19 17:50 Senokot PO HS PRN Constipation Objective - Vital Signs Vital signs: Vital Signs Temp 98.1 F 02/14/19 05:00 Pulse 92 02/14/19 05:00 Resp 16 02/14/19 05:00 BP 110/75 02/14/19 05:00 Pulse Ox 97 02/14/19 05:00 Intake & Output 02/13/19 02/14/19 02/14/19 18:59 06:59 18:59 Intake Total 1115 Balance 1115 Intake: IV 525 Sodium Chloride 0.9% 1, 525 000 ml @ 150 mls/hr IV . Q6H40M [facility] Rx#:[id number] Oral 590 Other: Voiding Method Toilet Toilet # Voids 2 3 - Exam GENERAL: The patient is alert and oriented x3, not in any acute distress. Well developed, well nourished. HEENT: Pupils are round and equally reacting to light. EOMI. No scleral icterus. No conjunctival pallor. Normocephalic, atraumatic. No pharyngeal erythema. No thyromegaly. CARDIOVASCULAR: S1 and S2 present. No murmurs, rubs, or gallops. PULMONARY: Chest is clear to auscultation, no wheezing or crackles. ABDOMEN: Soft, nontender, nondistended, normoactive bowel sounds. No palpable organomegaly. MUSCULOSKELETAL: No joint swelling or deformity. EXTREMITIES: No cyanosis, clubbing, or pedal edema. Bilateral lower extremity tenderness NEUROLOGICAL: Gross neurological examination did not reveal any focal deficits. SKIN: No rashes. No petechiae - Labs CBC & Chem 7: 02/13/19 12:25 02/13/19 12:25 Labs: Abnormal Lab Results - Last 24 Hours (Table) 02/13/19 02/13/19 Range/Units 12:25 12:25 RBC 2.72 L (3.80-5.40) m/uL Hgb 8.3 L (11.4-16.0) gm/dL Hct 25.1 L (34.0-46.0) % RDW 16.2 H (11.5-15.5) % Plt Count 33 L (150-450) k/uL Lymphocytes # 0.8 L (1.0-4.8) k/uL Chloride 111 H (98-107) mmol/L Carbon Dioxide 19 L (22-30) mmol/L BUN 5 L (7-17) mg/dL AST 47 H (14-36) U/L Total Protein 5.8 L (6.3-8.2) g/dL Albumin 2.9 L (3.5-5.0) g/dL Microbiology - Last 24 Hours (Table) 02/09/19 15:00 Blood Culture - Preliminary Blood No Growth after 96 hours Assessment and Plan Assessment: Acute anemia, status post blood transfusion, possible combination of and deficiency anemia and anemia of chronic disease Acute urinary tract infection Systemic inflammatory response syndrome with leukocytosis of 12.3 K, and tachycardia Possible Sepsis secondary to above Acute cerebral infarct in the left parietal lobe and right frontal lobe Acute hypotension, present on admission. Multifactorial related to possible GI bleed, sepsis, medication and others. Improved Bilateral leg pain, Doppler is negative for DVT. Possible peripheral neuropathy . Improved with Neurontin Recent history of brain hemorrhage associated with thrombocytopenia, one week prior to admission History of lung cancer since 2014, with metastasis to the liver and omental masses pelvic masses History of laryngeal cancer History of pulmonary embolism History of coronary artery disease Hypertension Hyperlipidemia GERD History of CVA/TIA Plan: This is a pleasant 53 years old female who presents with sepsis, rule out urinary tract infection. Continue with antibiotics. Continue with IV fluids. Appreciate infectious disease consult. Appreciate oncology team. , monitor hemoglobin and platelet count. GI team are also following the case. Start iron. We'll consult a neurologist for her acute infarction. Dr. Oliveira this seemed patient for possible IVC filter. Patient will need follow-up with oncologist outpatient for her progressive hepatic disease with possible metastases. Continue on steroids for possible ITP and monitor platelet count. Labs and medication were reviewed.. Continue same treatment. Continue with symptomatic treatment. Resume home medication. Monitor lytes and vitals. DVT and GI prophylaxis. Further recommendations of the clinical course of the patient DVT prophylaxis: no heparin in view of recent cerebral hemorrhage, also thrombo cytopenia GI Prophylaxis: Pepcid PT/OT: Pending Prognosis is guarded
[2019-02-14 12:00] LABS: Anisocytosis Slight; Basophils % (A) 0 %; Eosinophils % (A) 0 %; HCT 28.2 % (34.0-46.0); HGB 8.7 gm/dL (11.4-16.0); Hypochromasia Marked; Lymphocytes # (A) 0.4 k/uL (1.0-4.8); Lymphocytes % (A) 4 %; MCHC 30.8 g/dL (31.0-37.0); Macrocytosis Slight; Mean Platelet Volume 10.5; Monocytes # (A) 0.2 k/uL (0-1.0); Monocytes % (A) 2 %; Neutrophils # (A) 10.4 k/uL (1.3-7.7); Neutrophils % (A) 94 %; Poikilocytosis Slight; RBC 2.89 m/uL (3.80-5.40); RDW 16.5 % (11.5-15.5); WBC 11.1 k/uL (3.8-10.6)
[2019-02-14 12:06] LABS: MCV 97.5 fL (80.0-100.0); Platelet Count 50 k/uL (150-450)
[2019-02-14] MEDS: FERROUS SULFATE 325 MG TAB PO SCH (13:58)
--- NOTE | 2019-02-14 14:45 | P.PN ---
Subjective Progress Note Date: 02/14/19 The patient denies any obvious bleeding today. No fevers or chills. She denies any headaches, or balance problems. When seen she was ambulating without a problem. Objective - Vital Signs Vital signs: Vital Signs Temp 98.2 F 02/14/19 11:46 Pulse 83 02/14/19 11:46 Resp 22 02/14/19 11:46 BP 114/73 02/14/19 11:46 Pulse Ox 100 02/14/19 11:46 Intake & Output 02/13/19 02/14/19 02/14/19 18:59 06:59 18:59 Intake Total 1115 Balance 1115 Intake: IV 525 Sodium Chloride 0.9% 1, 525 000 ml @ 150 mls/hr IV . Q6H40M NAINA Rx#:[id number] Oral 590 Other: Voiding Method Toilet Toilet # Voids 2 3 1 - Constitutional General appearance: Present: no acute distress - EENT Eyes: Present: EOMI ENT: Present: hearing grossly normal, thrush (Markedly improved) - Respiratory Respiratory: bilateral: CTA - Cardiovascular Rhythm: regular Heart sounds: normal: S1, S2 - Gastrointestinal General gastrointestinal: Present: soft - Integumentary Integumentary: Present: normal - Neurologic Neurologic: Present: CNII-XII intact - Musculoskeletal Musculoskeletal: Present: generalized weakness, strength equal bilaterally - Labs CBC & Chem 7: 02/14/19 11:12 02/13/19 12:25 Labs: Abnormal Lab Results - Last 24 Hours (Table) 02/14/19 Range/Units 11:12 WBC 11.1 H (3.8-10.6) k/uL RBC 2.89 L (3.80-5.40) m/uL Hgb 8.7 L (11.4-16.0) gm/dL Hct 28.2 L (34.0-46.0) % MCHC 30.8 L (31.0-37.0) g/dL RDW 16.5 H (11.5-15.5) % Plt Count 50 L D (150-450) k/uL Neutrophils # 10.4 H (1.3-7.7) k/uL Lymphocytes # 0.4 L (1.0-4.8) k/uL Microbiology - Last 24 Hours (Table) 02/09/19 15:00 Blood Culture - Preliminary Blood No Growth after 96 hours - Imaging and Cardiology MRI - head: report reviewed Assessment and Plan (1) CVA (cerebral vascular accident) Narrative/Plan: On review of her recent prior MRI, as well as MRI done yesterday, it appears that the area of hemorrhage actually represents a CVA. At this time there is no active bleeding noted though there may have been bleeding in the area previously. In addition at least 2 new areas of acute ischemia noted. - The patient has no symptoms. - Consult neurology - The patient's platelets have been lower than 50,000 and there was some concern about GI bleed. She has been placed on IV steroids for possible ITP. If platelets are 50,000 or above she can be started on antiplatelet agent therapy, if felt to be indicated by neurology Current Visit: Yes Status: Acute Code(s): I63.9 - CEREBRAL INFARCTION, UNSPECIFIED SNOMED Code(s): 586914231 (2) Anemia Narrative/Plan: There was concern for black stools yesterday. However hemoglobin has remained fairly stable. It was in the 8 range today, which is the same as 02/12/19. She has had no obvious bleeding today. Therefore if hemoglobin remains stable, and especially if the platelets improve with steroids, then at this time acute intervention will not be required. Current Visit: No Status: Acute Priority: Medium Code(s): D64.9 - ANEMIA, UNSPECIFIED SNOMED Code(s): 672660642 (3) Urinary tract infection Narrative/Plan: This is a cause acutely for this admission. Patient is on Rocephin with symptomatic improvement. Cultures are negative. Defer to the admitting service and other consultants for continued treatment Current Visit: Yes Status: Acute Code(s): N39.0 - URINARY TRACT INFECTION, SITE NOT SPECIFIED SNOMED Code(s): 65622022 (4) Lung cancer Narrative/Plan: The patient has missed several chemotherapy appointments, that was scheduled for her.Abdominal ultrasound confirms progression in the liver. She'll be started back on treatment post discharge. Current Visit: No Status: Acute Code(s): C34.90 - MALIGNANT NEOPLASM OF UNSP PART OF UNSP BRONCHUS OR LUNG SNOMED Code(s): 565374663 (5) Pulmonary emboli Narrative/Plan: The patient has had. Anticoagulation, due to drop in platelets, concern for intracranial bleed, and now possible GI bleed. She remains at high risk of recurrence is or PE was only 6 months ago, and she has active malignancy. Therefore in her situation placement of IVC filter is felt to be appropriate. This was discussed with vascular surgery. They were advised that if the platelet count was 50 or above, they will proceed without need for platelet transfusion Current Visit: No Status: Chronic Priority: Medium Code(s): I26.99 - OTHER PULMONARY EMBOLISM WITHOUT ACUTE COR PULMONALE SNOMED Code(s): 36334087
--- NOTE | 2019-02-14 15:32 | P.CNNES ---
History of Present Illness Consult date: 02/14/19 Reason for Consult: Acute infarct on MRI Chief complaint: Pain and weakness History of Present Illness: HISTORY OF PRESENT ILLNESS: Thank you for allowing me to evaluate Ms. Norma Krishna. Ms. Krishna is a 53-year-old woman with past medical history of metastatic lung cancer (diagnosed in 2014), throat cancer diagnosed in April 2018, brain aneurysm, GERD, hyperlipidemia, hypertension, AK, anxiety and panic disorder, presenting with weakness and pain on 02/09/2019, admitted for UTI/sepsis/ataxia, consulting neurology for MRI brain finding of acute stroke. Patient states that she initially had weakness and pain in her lower extremities bilaterally, but at this time, patient with no pain, able to walk to the bathroom on her own and no weakness. I reviewed MRI brain with radiologist today as there was a question about the final read. Patient had a subarachnoid hemorrhage in the L parietal area in mid-January (pt was admitted at [facility], observed for 5 days and discharged with no intervention). MRI brain from 02/13/19 was compared with the one from 10/2018. There might be one small lesion that could be new, but it's not an acute stroke. If it were, it would be a subacute stroke. R frontal lobe lesion most likely a T2 shine through. Patient states she was on Eliquis until about 2 weeks ago as it was stopped when she was found with SAH. Of note, patient has had numbness of her RUE, R upper chest area and R upper back area since she was a teenager. It didn't bother her much, and it wasn't until 1998 that she decided to see a doctor, and at that time, she had a brain surgery. Patient is not aware of the diagnosis given. PAST MEDICAL HISTORY: metastatic lung cancer (diagnosed in 2014), throat cancer diagnosed in April 2018, brain aneurysm, GERD, hyperlipidemia, hypertension, AK, PAST SURGICAL HISTORY: Tubal ligation, uterine ablation, brain aneurysm surgery, right release, partial right lung resection HOME MEDICATIONS: Protonix, folic acid, Megace, fentanyl patch, magnesium oxide, oxycodone, atorvastatin, Keppra, metoprolol ALLERGIES: Heparin, penicillins SOCIAL HISTORY: Former smoker. FAMILY HISTORY: Father and mother with cancer REVIEW OF SYSTEMS: The 14 systems are reviewed and no additional points are identified compared to the review of systems documented history and physical PHYSICAL EXAMINATION: VITAL SIGNS: T 98.1 HR 92 RR 16 BP 110/75 O2 sat 97% on standby GEN.: NAD, pleasant and cooperative HEENT: NCAT, sclera without icterus NECK: Supple SKIN AND EXTREMITIES: Warm to touch, no edema NEURO: MENTAL STATUS: Patient alert and oriented to self, place, time. Able to name the current president. Speech fluent, able to name and repeat, following all commands readily. No right and left disorientation, neglect. CRANIAL NERVES II THROUGH XII: II: Pupils are equal and reactive to light symmetrically. No afferent pupillary defect. Visual cano are intact. III, IV, : No ptosis. Extraocular movements full. No nystagmus. V: Facial sensation intact from V1-3. VII. No clear facial asymmetry. VIII: Hearing intact to finger rub bilaterally. IX, X: Symmetric palate elevation. XI: Shoulder shrug intact. XII: Tongue midline without fasciculation or atrophy. MOTOR: Normal bulk/tone. No pronator drift or tremor. Strength is 5/5 in b/l UE. 4+/5 in b/l LE SENSORY: Sensation decreased to LT in RUE, R upper chest down to the bottom of her breast and R upper back (pt states she's had this since she was a teenager, even before her brain surgery in 1998). Intact to light touch in b/l LE and LUE. REFLEXES: 2+ throughout. Toes are downgoing. No clonus. Linda's is absent COORDINATION: Finger to nose intact. No dysmetria. DIAGNOSTIC TESTING: LABORATORY: WBC 8.8 hemoglobin 8.3 platelet 33 sodium 138 potassium 4.2 chloride 111 bicarb 19 BUN 5 creatinine 0.80 AST 47 ALT 27 Alkphos 105 stool occult blood test positive IMAGING: MRI brain without contrast 02/13/2019: Acute lacunar infarct in the left parietal lobe and right posterior lobe and right frontal lobe. There is evidence of subacute cortical infarct left posterior temporal lobe. Infarct appear new compared to old MR scan of 10/25/2018. No evidence of metastatic disease CT head without contrast 02/09/2019: Resolution of patient's left posterior subarachnoid bleed. There may be a minor degree of focal swelling in this region. Evidence of previous surgery. No acute intracranial abnormality. CT head without contrast 01/28/2019: The left posterior acute subarachnoid hemorrhage. ASSESSMENT/RECOMMENDATIONS: Ms. Krishna is a 53-year-old woman with past medical history of metastatic lung cancer (diagnosed in 2014), throat cancer diagnosed in April 2018, brain aneurysm, GERD, hyperlipidemia, hypertension, AK, anxiety and panic disorder, presenting with weakness and pain on 02/09/2019, admitted for UTI/sepsis/ataxia, consulting neurology for MRI brain finding of acute stroke. Reviewed MRI brain with radiologist again, R frontal lobe lesion most likely a T2 shine through, (which was also present in 10/2018), and L posterior lobe small lesion could be a stroke but it would a subacute stroke. Patient with recent history of subarachnoid hemorrhage in the L parietal lobe area. MRI brain findings not 100% specific for stroke at this time. However, patient does have risk factors strokes, including PE. At the same time, patient with recent SAH along with extremely low platelet count. At this time, I would hold aspirin as there is concern for additional bleeding. Patient needs to follow up with a neurologist within 2 weeks (mid February 2019) for another evaluation for starting antiplatelet for stroke prevention. Patient is already started on atorvastatin. Neurology will sign off at this time. Please all with additional questions or concerns. Past Medical History Past Medical History: Cancer, CVA/TIA, GERD/Reflux, Hyperlipidemia, Hypertension, Myocardial Infarction (AK) Additional Past Medical History / Comment(s): Stage IV metastatic lung cancer, adenocarcinoma, initially diagnosed back in 2016 and the patient has liver metastases. 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 Last Myocardial Infarction Date:: 04/30/2013 History of Any Multi-Drug Resistant Organisms: None Reported Past Surgical History: Heart Catheterization, Orthopedic Surgery, Tubal Ligation, Uterine Ablation Additional Past Surgical History / Comment(s): Right lower lobe resection for small cell lung cancer, angioplasty/stenting of a brain aneurysm, carpal tunnel release, laparoscopy and liver biopsy, paracentesis, Past Anesthesia/Blood Transfusion Reactions: No Reported Reaction Past Psychological History: Anxiety, Panic Disorder Smoking Status: Former smoker Past Alcohol Use History: None Reported Past Drug Use History: None Reported - Past Family History Mother Family Medical History: Cancer Father Family Medical History: Cancer Medications and Allergies Home Medications Medication Instructions Recorded Confirmed Type Folic Acid 1 mg PO DAILY #30 tab 08/24/18 02/09/19 Rx Pantoprazole Sodium [Protonix] 40 mg PO DAILY #30 tablet. 08/24/18 02/09/19 Rx Ondansetron [Zofran ODT] 4 mg PO Q8HR PRN 08/30/18 02/09/19 History Megestrol [Megace] 400 mg PO DAILY #30 cup 09/01/18 02/09/19 Rx Sennosides [Senna] 8.6 mg PO HS PRN #60 tablet 09/09/18 02/09/19 Rx Magnesium Oxide [Mag-Ox] 400 mg PO TID #90 tab 10/26/18 02/09/19 Rx fentaNYL 12MCG/HR PATCH [Duragesic 1 patch TRANSDERM Q72H #10 patch 10/26/18 02/09/19 Rx 12MCG/HR] oxyCODONE-APAP 10-325MG [Percocet 1 tab PO QID PRN 3 Days #12 tab 10/26/18 02/09/19 Rx 10-325 mg] Atorvastatin [Lipitor] 80 mg PO HS 01/28/19 02/09/19 History Metoprolol Tartrate [Lopressor] 25 mg PO BID 02/03/19 02/09/19 History levETIRAcetam [Keppra] 500 mg PO BID 02/03/19 02/09/19 History Allergies Allergy/AdvReac Type Severity Reaction Status Date / Time heparin Allergy Unknown Verified 02/11/19 15:33 Penicillins Allergy Unknown Verified 02/09/19 11:17 Childhood Physical Examination - Vital Signs Vital Signs: Vital Signs Temp Pulse Resp BP BP Pulse Ox 02/14/19 05:00 98.1 F 92 16 110/75 97 02/13/19 21:00 99.4 F 98 16 101/67 96 02/13/19 15:42 95 02/13/19 11:59 76 88/66 97 02/13/19 11:18 98.4 F 83 16 96/66 98 Intake and Output 02/13/19 02/14/19 02/14/19 22:59 06:59 14:59 Intake Total 525 590 Balance 525 590 Intake: IV 525 Sodium Chloride 0.9% 1, 525 000 ml @ 150 mls/hr IV . Q6H40M [facility] Rx#:[id number] Oral 590 Other: Voiding Method Toilet # Voids 1 3 Results - Laboratory Findings CBC and BMP: 02/14/19 11:12 02/13/19 12:25 Abnormal Lab Findings: Abnormal Labs 02/09/19 02/09/19 02/09/19 11:25 11:25 11:25 WBC 12.3 H RBC 2.97 L Hgb 9.0 L Hct 27.5 L RDW 15.9 H Plt Count 41 L Neutrophils # 10.1 H Lymphocytes # Lymphocytes # (Manual) PT 12.9 H INR 1.3 H Chloride 111 H Carbon Dioxide 19 L BUN Glucose 102 H POC Glucose (mg/dL) Calcium Iron TIBC Iron Saturation AST Total Protein Albumin Vitamin B12 Urine Appearance Urine Protein Ur Leukocyte Esterase Urine WBC Ur Squamous Epith Cells Urine Bacteria Urine Mucus Stool Occult Blood Crossmatch 02/09/19 02/10/19 02/10/19 13:32 05:00 05:00 WBC RBC 2.28 L Hgb 6.9 L* D Hct 21.3 L RDW 15.9 H Plt Count 30 L Neutrophils # Lymphocytes # 0.7 L Lymphocytes # (Manual) PT INR Chloride 118 H Carbon Dioxide 18 L BUN Glucose POC Glucose (mg/dL) Calcium 7.5 L Iron TIBC Iron Saturation AST Total Protein Albumin Vitamin B12 Urine Appearance Cloudy H Urine Protein 2+ H Ur Leukocyte Esterase Moderate H Urine WBC 44 H Ur Squamous Epith Cells 12 H Urine Bacteria Rare H Urine Mucus Occasional H Stool Occult Blood Crossmatch 02/10/19 02/10/19 02/10/19 05:00 06:10 14:19 WBC RBC 2.93 L Hgb 8.8 L D Hct 26.3 L RDW 16.2 H Plt Count 34 L Neutrophils # Lymphocytes # Lymphocytes # (Manual) PT INR Chloride Carbon Dioxide BUN Glucose POC Glucose (mg/dL) Calcium Iron 20 L TIBC 194 L Iron Saturation 10.31 L AST Total Protein Albumin Vitamin B12 1918.0 H Urine Appearance Urine Protein Ur Leukocyte Esterase Urine WBC Ur Squamous Epith Cells Urine Bacteria Urine Mucus Stool Occult Blood Crossmatch See Detail 02/11/19 02/11/19 02/12/19 06:54 06:54 06:31 WBC RBC 3.10 L Hgb 9.3 L Hct 28.1 L RDW 16.1 H Plt Count 36 L Neutrophils # Lymphocytes # 0.6 L Lymphocytes # (Manual) PT INR Chloride 113 H Carbon Dioxide 19 L BUN 5 L Glucose POC Glucose (mg/dL) Calcium Iron TIBC Iron Saturation AST Total Protein Albumin Vitamin B12 Urine Appearance Urine Protein Ur Leukocyte Esterase Urine WBC Ur Squamous Epith Cells Urine Bacteria Urine Mucus Stool Occult Blood Positive H Crossmatch 02/12/19 02/12/19 02/12/19 06:44 06:44 20:11 WBC RBC 3.13 L Hgb 9.5 L Hct 28.8 L RDW 16.3 H Plt Count 31 L Neutrophils # Lymphocytes # Lymphocytes # (Manual) 0.54 L PT INR Chloride 112 H Carbon Dioxide 21 L BUN 5 L Glucose POC Glucose (mg/dL) 102 H Calcium Iron TIBC Iron Saturation AST Total Protein Albumin Vitamin B12 Urine Appearance Urine Protein Ur Leukocyte Esterase Urine WBC Ur Squamous Epith Cells Urine Bacteria Urine Mucus Stool Occult Blood Crossmatch 02/13/19 02/13/19 12:25 12:25 WBC RBC 2.72 L Hgb 8.3 L Hct 25.1 L RDW 16.2 H Plt Count 33 L Neutrophils # Lymphocytes # 0.8 L Lymphocytes # (Manual) PT INR Chloride 111 H Carbon Dioxide 19 L BUN 5 L Glucose POC Glucose (mg/dL) Calcium Iron TIBC Iron Saturation AST 47 H Total Protein 5.8 L Albumin 2.9 L Vitamin B12 Urine Appearance Urine Protein Ur Leukocyte Esterase Urine WBC Ur Squamous Epith Cells Urine Bacteria Urine Mucus Stool Occult Blood Crossmatch
[2019-02-14] MEDS ORDERED: HYDROmorphone 1 MG/ML 1 ML SYRINGE IVP ONE (17:08)
[2019-02-14] MEDS ORDERED: LIDOCAINE 1% INJ 10MG/ML (20 ML MDV) SQ ONE (17:10)
[2019-02-14] MEDS ORDERED: MIDAZOLAM PF (FBP) 2 MG/2 ML VIAL IV ONE (17:17)
[2019-02-14] MEDS ORDERED: IV FLUID CONTINUATION 500 ML IV ONE (17:17)
[2019-02-14] MEDS: ATORVASTATIN 80 MG TAB PO SCH (20:33)
[2019-02-14 21:17] VITALS: RESP 16
--- NOTE | 2019-02-14 22:47 | OP ---
OPERATIVE REPORT PREOPERATIVE DIAGNOSIS: Hypercoagulation with history of carcinoma of the lung and carcinoma of the larynx with history of pulmonary embolism in the past and gastrointestinal bleed. PROCEDURES: 1. Inferior vena cavogram. 2. Placement of Tulip filter below the renal vein with completion of the vena cavogram. PROCEDURE DESCRIPTION: This patient was brought to the labor supervisor. Right groin was prepped and draped in the usual sterile manner. Lidocaine 1% was infiltrated. Ultrasound-guided micropuncture was introduced into the right femoral vein. After that, micropuncture guidewire was passed and 4-Chilean dilator advanced on top of the guidewire. Then we passed a regular guidewire which was parked in the inferior vena cava and a 5-Chilean sheath was advanced on the top of the guidewire. Then we placed a pigtail catheter above the renal vein and inferior vena cavogram was performed. Both the renal veins were visualized. No clot was seen in the vena cava. After that we placed a sheath on the top of the guidewire. Through the sheath we placed the Tulip filter below the renal vein and completion vena cavogram was performed. It was in good position and then pressure was held. Patient tolerated the procedure well and was transferred to the recovery room in satisfactory condition. MMODL / IJN: [id number] /
--- NOTE | 2019-02-14 23:20 | PN ---
PROGRESS NOTE DATE OF SERVICE: 02/14/2019. REASON FOR FOLLOWUP: 1. Possible UTI. 2. Oral thrush. INTERVAL HISTORY: The patient is currently afebrile. The patient has been breathing comfortably. The patient's oral soreness has improved. Denies having difficulty swallowing. No chest pain, shortness of breath or cough. No nausea, vomiting or abdominal pain or diarrhea. PHYSICAL EXAMINATION: Blood pressure 102/60 with a pulse of 88, temperature 98.4. She is 98% on room air. General description is a middle-aged female lying in bed in no distress. HEENT EXAMINATION: Oral thrush has decreased. LUNGS: Unlabored breathing. Decreased breath sounds at the bases. HEART: S1, S2. Regular rate and rhythm. ABDOMEN: Soft. No tenderness. LABS: Hemoglobin is 8.7, white count of 11.1, BUN of 5, creatinine 0.80. DIAGNOSTIC IMPRESSION AND PLAN: 1. Patient admitted to hospital with weakness, lethargy, hypotension with concern for urinary tract infection. Overall improvement on Rocephin. The patient's cultures remain negative. Rocephin will be discontinued on discharge. 2. Patient with oral thrush. To continue nystatin swish and swallow for about a week. MMODL / IJN: [id number] /
[2019-02-15] MEDS: CLOTRIMAZOLE TROCHE 10 MG TROCHE MUCOUS MEM SCH ×4 (00:30→12:27)
[2019-02-15] MEDS: SODIUM CHLORIDE 0.9% 1,000 ML IV SCH (05:20)
[2019-02-15 07:46] LABS: Anisocytosis Slight; HCT 26.4 % (34.0-46.0); Hypochromasia Marked; MCH 29.6 pg (25.0-35.0); MCHC 30.5 g/dL (31.0-37.0); MCV 96.9 fL (80.0-100.0); Macrocytosis Slight; Mean Platelet Volume 9.6; Poikilocytosis Slight; RBC 2.72 m/uL (3.80-5.40); RDW 16.6 % (11.5-15.5)
[2019-02-15 07:49] LABS: Platelet Count 63 k/uL (150-450)
[2019-02-15 07:50] LABS: Calcium 8.7 mg/dL (8.4-10.2); Potassium 4.6 mmol/L (3.5-5.1)
[2019-02-15] MEDS: MAGNESIUM OXIDE 400 MG TAB PO SCH (08:19)
[2019-02-15] MEDS: methylPREDNISolone SOD SUCCI 125 MG/2 ML VIAL IV SCH (08:19)
[2019-02-15] MEDS: NYSTATIN 100,000 UNIT/ML SUSP 500,000 UNIT/5 ML CUP PO SCH ×2 (08:19→12:25)
[2019-02-15] MEDS: PANTOPRAZOLE 40 MG TABLET PO SCH (08:20)
[2019-02-15] MEDS: GABAPENTIN 100 MG CAP PO SCH (08:20)
[2019-02-15] MEDS: FOLIC ACID 1 MG TAB PO SCH (08:20)
[2019-02-15] MEDS: levETIRAcetam 500 MG TAB PO SCH (08:20)
[2019-02-15] MEDS: HYDROmorphone 0.5 MG/0.5 ML SYRINGE IVP PRN (08:24)
[2019-02-15 08:55] LABS: Neutrophils % (M) 97 %; Nucleated Red Blood Cells 2 /100 WBC (0-0); Total Cells Counted 200
[2019-02-15 08:56] LABS: Lymphocytes # (M) 0.34 k/uL (1.0-4.8); WBC 11.3 k/uL (3.8-10.6)
--- NOTE | 2019-02-15 09:21 | IR ---
EXAMINATION TYPE: IR IVC filter placement DATE OF EXAM: 02/14/2019 COMPARISON: NONE HISTORY: Fluoroscopy time. Fluoroscopy was provided to the referring clinician.
[2019-02-15] MEDS: FERROUS SULFATE 325 MG TAB PO SCH (12:24)
[2019-02-15 13:51] VITALS: BMI 25.3
--- NOTE | 2019-02-15 14:02 | P.PN ---
Subjective Progress Note Date: 02/15/19 Principal diagnosis: UTI, sepsis, CVA In follow-up today patient states feeling pretty well, she is anxious to go home. She denies vision changes, hearing changes, unilateral deficits, progressive weakness, numbness or tingling. Appetite is fairly decent, no nausea or vomiting, no acute changes in bowel or bladder, no hematuria, black or bloody stool Objective - Vital Signs Vital signs: Vital Signs Temp 98.4 F 02/15/19 05:00 Pulse 93 02/15/19 05:00 Resp 16 02/15/19 05:00 BP 100/68 02/15/19 05:00 Pulse Ox 97 02/15/19 05:00 Intake & Output 02/14/19 02/15/19 02/15/19 18:59 06:59 18:59 Intake Total 650 Balance 650 Intake: Intake, IV Titration 650 Amount Sodium Chloride 0.9% 1, 600 000 ml @ 75 mls/hr IV . [id number] [facility] Rx#:[id number] cefTRIAXone 2 gm In 50 Sodium Chloride 0.9% 50 ml @ 100 mls/hr IVPB Q24H [facility] Rx#:[id number] Other: Voiding Method Toilet Toilet # Voids 1 1 - Constitutional General appearance: Present: average body habitus, cooperative, no acute distress - EENT Eyes: Present: anicteric sclerae, EOMI ENT: Present: hearing grossly normal, normal oropharynx - Respiratory Details: respirations even and unlabored - Cardiovascular Details: skin warm and dry, no lower extremity swelling - Gastrointestinal General gastrointestinal: Present: soft - Neurologic Neurologic: Present: CNII-XII intact - Musculoskeletal Musculoskeletal: Present: strength equal bilaterally - Psychiatric Psychiatric: Present: A&O x's 3, appropriate affect, intact judgment & insight - Labs CBC & Chem 7: 02/15/19 07:15 02/15/19 07:15 Labs: Abnormal Lab Results - Last 24 Hours (Table) 02/15/19 02/15/19 Range/Units 07:15 07:15 WBC 11.3 H (3.8-10.6) k/uL RBC 2.72 L (3.80-5.40) m/uL Hgb 8.0 L (11.4-16.0) gm/dL Hct 26.4 L (34.0-46.0) % MCHC 30.5 L (31.0-37.0) g/dL RDW 16.6 H (11.5-15.5) % Plt Count 63 L (150-450) k/uL Neutrophils # (Manual) 10.96 H (1.3-7.7) k/uL Lymphocytes # (Manual) 0.34 L (1.0-4.8) k/uL Nucleated RBCs 2 H (0-0) /100 WBC Chloride 115 H (98-107) mmol/L Carbon Dioxide 18 L (22-30) mmol/L Glucose 147 H (74-99) mg/dL Microbiology - Last 24 Hours (Table) 02/09/19 15:00 Blood Culture - Preliminary Blood No Growth after 120 hours Assessment and Plan (1) CVA (cerebral vascular accident) Narrative/Plan: Pending recommendations from Neurology regarding antiplatelet therapy. Patient's platelets are 63,000 today, and per Dr. Fatima, if recommended by Neurology, aspirin would be okay to administer with close monitoring for bleeding. Current Visit: Yes Status: Acute Priority: High Code(s): I63.9 - CEREBRAL INFARCTION, UNSPECIFIED SNOMED Code(s): 706793082 (2) Sepsis Narrative/Plan: Tx per ID-pt improved Current Visit: Yes Status: Acute Priority: High Code(s): A41.9 - SEPSIS, UNSPECIFIED ORGANISM SNOMED Code(s): 16436509 (3) Urinary tract infection Narrative/Plan: Tx per ID-pt improved Current Visit: Yes Status: Acute Priority: High Code(s): N39.0 - URINARY TRACT INFECTION, SITE NOT SPECIFIED SNOMED Code(s): 25405714 (4) Metastatic lung cancer (metastasis from lung to other site) Narrative/Plan: Pt has only had 3 carbo/alimta/keytruda and 1 cycle of alimta/keytruda on 10/13/18. Patient has had multiple hospitalizations which have resulted in missed treatments but pt has also no showed many treatment appts as well. Patient was encouraged to keep her follow-up appointments, one is documented in the discharge summary. Current Visit: Yes Status: Chronic Priority: Medium Code(s): C34.90 - MALIGNANT NEOPLASM OF UNSP PART OF UNSP BRONCHUS OR LUNG SNOMED Code(s): 76612035 (5) Pulmonary emboli Narrative/Plan: less than 6 months ago diagnosis, concerns for gastrointestinal bleeding so, IVC filter has been placed. Current Visit: Yes Status: Acute Priority: Medium Code(s): I26.99 - OTHER PULMONARY EMBOLISM WITHOUT ACUTE COR PULMONALE SNOMED Code(s): 66756943 (6) Pancytopenia due to antineoplastic chemotherapy Narrative/Plan: After review of the patient's chemotherapy history it is questionable if her pancytopenia (anemia and thrombocytopenia) are related to chemotherapy. It has been discussed that possibly patient has developed an ITP secondary to the immunotherapy portion of her treatment and this is being addressed and treated with a taper of steroid. Patient's anemia is moderate, labs do show an iron deficiency. We can supplement patient with iron outpatient. We will see patient in the outpatient setting on the eighth, recheck labs and treat accordingly. Current Visit: Yes Status: Chronic Priority: Medium Code(s): D61.810 - ANTINEOPLASTIC CHEMOTHERAPY INDUCED PANCYTOPENIA; T45.1X5A - ADVERSE EFFECT OF ANTINEOPLASTIC AND IMMUNOSUP DRUGS, INIT SNOMED Code(s): 472201752834879
[2019-02-15 14:07] VITALS: BP 117/76; PULSE 78; TEMP 98
--- NOTE | 2019-02-15 14:42 | P.DS ---
Providers Date of admission: 02/09/19 14:44 Expected date of discharge: 02/15/19 Attending physician: Anurag Kumar MD Consults: 02/09/19 13:59 Consult Physician Urgent Consulting Provider: Miguel Fatima Consult Reason/Comments: metastatic rachael cancer Do you want consulting provider notified?: Yes Consult Physician Urgent Consulting Provider: Eyal Childers Consult Reason/Comments: sepsis Do you want consulting provider notified?: Yes 02/10/19 05:14 Consult Physician Stat Consulting Provider: Lucian Chen Consult Reason/Comments: ICU management Do you want consulting provider notified?: Already Contacted 02/11/19 11:55 Consult Physician Urgent Consulting Provider: Yennifer Baires Consult Reason/Comments: rule out GI bleed, droping Hb, with TREY Do you want consulting provider notified?: Yes 02/13/19 13:31 Consult Physician Routine Consulting Provider: Eduard Oliveira Consult Reason/Comments: IVC Filter Do you want consulting provider notified?: Yes 02/14/19 08:02 Consult Physician Urgent Consulting Provider: Diana Rhoades Consult Reason/Comments: acute infarct Do you want consulting provider notified?: Yes Primary care physician: [facility] Course: 53 years old female with past medical history of GERD, hyperlipidemia, hypertension, coronary artery disease, CVA/TIA, lung cancer diagnosed in 2014, history of pulmonary embolism . history of adenocarcinoma of the lung, status post lobectomy, on 04/2018 patient was diagnosed with stage laryngeal cancer, treated with radiation therapy. On 07/2018, patient was found to have liver lesions and omental masses and pelvic masses and found to have recurrent adenocarcinoma of her lung. On that time patient was found to have pulmonary embolism and she was placed on anticoagulation with some evidence of bleeding per vagina going on. Last week patient found to have small area of hemorrhage in the brain associated with thrombocytopenia, no intervention needed. Who presents because of fever. Patient also was complaining of from pain in her both legs and feet for about 3-4 days, patient says there was severe and preventing her from standing up, pain is continuous and any specific with no associated rash. Patient also denies headache. No chest pain or dyspnea. No abdominal pain. No change in urine or bowel habits. Also patient stating decreased appetite. Patient is mildly tachycardic at 105, she has low grade temperature of 99.2, blood pressure on the low side 93/57. Left showing leukocytosis of 12.3 K, hemoglobin 9, INR is 1.3, creatinine 0.9. Chest x-ray showed clear lungs. CAT scan of the brain: No evidence of acute intracranial process, however showing previous occipital craniotomy performed resolution of the left posterior subarachnoid bleed. EKG showing normal sinus rhythm at 100 UA is suspicious for infection In the emergency room patient was started on normal saline at 125 L/h 02/10/2019 Patient was hypotensive overnight and she was transferred to the ICU, she received several boluses of normal saline and her blood pressure get corrected and improved today is 135/90, she still tachycardic with heart rate of 111. Her hemoglobin dropped today from 9 down to 6.9, patient received 1 unit of blood transfusion, her that she is back to normal 7.8K, platelets dropped from 41 down to 30. Rest of BMP is unremarkable with creatinine 0.7, liver enzymes within normal. Patient still complaining from significant leg pain and gabapentin this started, pulmonary/critical care input is appreciated. Were going to do anemia workup. Doppler of the lower extremities negative for DVT 02/11/2019 Patient transferred to the general medical floor, her pain in her legs significantly improved, patient was started on Neurontin for her leg pain. Her blood pressure this morning is 108/79, heart rate is 59, patient had low-grade temperature yesterday of 99.0. Left showing stable hemoglobin at 9.3 after 1 unit of blood transfusion, patient is still thrombocytopenic and 36, creatinine is normal however aren't studies is suspicious for iron deficiency anemia, in combination with anemia of chronic disease which might be related to her cancer history or medical problems. Occult blood in his stool still pending. Patient states that she has regular bowel movement but is dark-colored, she denies abdominal pain or nausea vomiting. We going to start iron pills. Infectious disease consult is appreciated, her Rocephin is interested 2 g daily. 02/12/2019 Patient was sitting in bed comfortable and smiling when I saw her, she reported that her leg pain is better but at times she got the arm pain, and also shoulder areas which is felt better when I saw her. Patient is mildly tachycardic at 105, however her blood pressure is 110/66, rest of Vitas looks stable and patient is afebrile. Left showing stable hemoglobin of 9.5, platelets still low at 31, sodium is 140, creatinine 0.8, and Hemoccult is positive. Pulmonary and oncology follow-up is appreciated. Patient have some concerns about her pain medicine, I explained to the patient's wound going to taper her Dilaudid from 2 mg by mouth yesterday to 1 mg today and tomorrow. It and she agrees. She has leg pain which is mostly neuropathic pain were going to increase it her Neurontin to 200 and 3 times a day for better pain control. Oncology team evaluated the patient and recommended to restart fentanyl patch as well. Risk of narcotics including but not limited to cardiopulmonary arrest and are explained for the patient and she verbalized understanding and acceptance. GI team were consulted 02/13/2019 Patient is lying in bed comfortable but she smiling, not in distress her pain is controlled after restarting her fentanyl patch. His leg pain is also controlled, however her blood pressure on the low side 88/66, hemoglobin is slightly dropped to 8.3, however patient with no dizziness. We'll give her a bolus of 500 mL and increase her normal saline to 150 mm per hour, and follow up her hemoglobin. GI service R following the case 02/14/2019 Patient is resting comfortably with no chest pain or dyspnea, her leg pain is improved. She is fully awake and oriented and not in distress. Her blood pressure improved from yesterday 88/66 yesterday up to 110/75 daily, rest of Vitas looks stable. Lap showing slight lower hemoglobin at 8.3, creatinine within normal limits, and other lites are normal including potassium and sodium. Cultures show no growth so far. Abdominal ultrasound showing multiple hepatic masses suspicious for metastasis, the larger is 4.2 cm, gallstones with no evidence of cholecystitis. MRI of the brain showing acute white matter lacunar infarct in the left parietal lobe and right frontal lobe. Also because they recommended. IVC filter, discussed the case with Dr. Kingston who is going to review with oncology team and indication for the filter in view of thrombocytopenia.. Her platelet today is 33 while she was started on Solu- Medrol yesterday 02/15/2019; patient has an IVC filter; no antibiotics at time of dc Plan - Discharge Summary New Discharge Prescriptions: New predniSONE 20 mg PO DAILY #36 tab Nystatin 100,000 Unit/ml Susp [Mycostatin Oral Susp] 5 ml PO QID #140 ml Continue Pantoprazole Sodium [Protonix] 40 mg PO DAILY #30 tablet. Folic Acid 1 mg PO DAILY #30 tab Ondansetron [Zofran ODT] 4 mg PO Q8HR PRN PRN Reason: Nausea Megestrol [Megace] 400 mg PO DAILY #30 cup Sennosides [Senna] 8.6 mg PO HS PRN #60 tablet PRN Reason: Constipation fentaNYL 12MCG/HR PATCH [Duragesic 12MCG/HR] 1 patch TRANSDERM Q72H #10 patch Magnesium Oxide [Mag-Ox] 400 mg PO TID #90 tab oxyCODONE-APAP 10-325MG [Percocet 10-325 mg] 1 tab PO QID PRN 3 Days #12 tab PRN Reason: Pain Atorvastatin [Lipitor] 80 mg PO HS levETIRAcetam [Keppra] 500 mg PO BID Metoprolol Tartrate [Lopressor] 25 mg PO BID Discharge Medication List Folic Acid 1 mg PO DAILY #30 tab 08/24/18 [Rx] Pantoprazole Sodium [Protonix] 40 mg PO DAILY #30 tablet. 08/24/18 [Rx] Ondansetron [Zofran ODT] 4 mg PO Q8HR PRN 08/30/18 [History] Megestrol [Megace] 400 mg PO DAILY #30 cup 09/01/18 [Rx] Sennosides [Senna] 8.6 mg PO HS PRN #60 tablet 09/09/18 [Rx] Magnesium Oxide [Mag-Ox] 400 mg PO TID #90 tab 10/26/18 [Rx] fentaNYL 12MCG/HR PATCH [Duragesic 12MCG/HR] 1 patch TRANSDERM Q72H #10 patch 10/26/18 [Rx] oxyCODONE-APAP 10-325MG [Percocet 10-325 mg] 1 tab PO QID PRN 3 Days #12 tab 10/26/18 [Rx] Atorvastatin [Lipitor] 80 mg PO HS 01/28/19 [History] Metoprolol Tartrate [Lopressor] 25 mg PO BID 02/03/19 [History] levETIRAcetam [Keppra] 500 mg PO BID 02/03/19 [History] Nystatin 100,000 Unit/ml Susp [Mycostatin Oral Susp] 5 ml PO QID #140 ml 02/15/19 [Rx] predniSONE 20 mg PO DAILY #36 tab 02/15/19 [Rx] Follow up Appointment(s)/Referral(s): Miguel Fatima MD [STAFF PHYSICIAN] - 02/19/19 9:15 am [facility], [NON-STAFF] - 1 Week Latisha Ziegler MD [Primary Care Provider] - 02/26/19 2:00 pm Eduard Oliveira MD [STAFF PHYSICIAN] - 02/21/19 9:00 am Jeff Valdez DO [Doctor of Osteopathic Medicine] - 03/07/19 8:30 am Activity/Diet/Wound Care/Special Instructions: Tapering prednisone Erx to Daysi Lieberman-
--- NOTE | 2019-02-15 14:47 | PN ---
PROGRESS NOTE DATE OF SERVICE: 02/15/2019 REASON FOR FOLLOWUP: 1. Possible UTI. 2. Oral thrush. INTERVAL HISTORY: The patient is currently afebrile. Patient seems to be upset as she wanted to leave. Denies any chest pain or cough. Oral has improved. No abdominal pain. No diarrhea. PHYSICAL EXAMINATION: On examination, blood pressure 100/68 with a pulse of 93, temperature 98.4. She is 97% on 2 L nasal cannula. General description is a middle-aged female up in the bed in no distress. HEENT EXAMINATION: Oral thrush has improved. LUNGS: Unlabored breathing, decreased breath sounds in the base, no wheeze. HEART: S1, S2. Regular rate and rhythm. ABDOMEN: Soft. No tenderness. LABS: Hemoglobin 8 with a white count of 11.3, BUN of 13, creatinine 0.92. DIAGNOSTIC IMPRESSION AND PLAN: 1. Patient admitted to the hospital with concern for possible urinary tract infection. However, cultures remain negative. She antibiotic. There is no need for antibiotic on discharge. 2. Oral thrush. Will give her nystatin swish and swallow for about a week. Prescription sent to the pharmacy. Cleared to be discharged from Infectious Disease standpoint. MMODL / IJN: [id number] /
== END 2019-02-15 15:41 | disposition home health service (06) | DRG 853 ==
LOC: EC 10:47 → 3NMEDONC 14:44 → 2SICU 02-10 03:34 → 3NMEDONC 02-10 18:37
PROVIDERS: ADMIT Internal Medicine; ATTEND Internal Medicine
PROC: 30233N1 Transfusion of Nonautologous Red Blood Cells into Peripheral Vein, Percutaneous Approach (ICD-10-PCS; 2019-02-10)
PROC: B5191ZZ Fluoroscopy of Inferior Vena Cava using Low Osmolar Contrast (ICD-10-PCS; 2019-02-14)
PROC: 06H03DZ Insertion of Intraluminal Device into Inferior Vena Cava, Percutaneous Approach (ICD-10-PCS; principal; 2019-02-14 16:45)
DX: A41.9 Sepsis, unspecified organism (principal); R57.8 Other shock; R57.1 Hypovolemic shock; D61.810 Antineoplastic chemotherapy induced pancytopenia; N39.0 Urinary tract infection, site not specified; C78.7 Secondary malignant neoplasm of liver and intrahepatic bile duct; C78.6 Secondary malignant neoplasm of retroperitoneum and peritoneum; C79.89 Secondary malignant neoplasm of other specified sites; J90 Pleural effusion, not elsewhere classified; D69.3 Immune thrombocytopenic purpura; K92.2 Gastrointestinal hemorrhage, unspecified; D62 Acute posthemorrhagic anemia; B37.0 Candidal stomatitis; R13.10 Dysphagia, unspecified; J43.9 Emphysema, unspecified; G62.9 Polyneuropathy, unspecified; D50.0 Iron deficiency anemia secondary to blood loss (chronic); G89.3 Neoplasm related pain (acute) (chronic); R27.0 Ataxia, unspecified; T45.1X5A Adverse effect of antineoplastic and immunosuppressive drugs, initial encounter; D50.9 Iron deficiency anemia, unspecified; E78.5 Hyperlipidemia, unspecified; K59.00 Constipation, unspecified; I25.10 Atherosclerotic heart disease of native coronary artery without angina pectoris; I10 Essential (primary) hypertension; K21.9 Gastro-esophageal reflux disease without esophagitis; I25.2 Old myocardial infarction; Z79.818 Long term (current) use of other agents affecting estrogen receptors and estrogen levels; Z79.891 Long term (current) use of opiate analgesic; Z79.899 Other long term (current) drug therapy; Z86.79 Personal history of other diseases of the circulatory system; Z90.2 Acquired absence of lung [part of]; Z86.73 Personal history of transient ischemic attack (TIA), and cerebral infarction without residual deficits; Z86.711 Personal history of pulmonary embolism; Z87.891 Personal history of nicotine dependence; Z98.890 Other specified postprocedural states; Z98.51 Tubal ligation status; Z86.59 Personal history of other mental and behavioral disorders; Z92.21 Personal history of antineoplastic chemotherapy; Z88.0 Allergy status to penicillin; Z92.3 Personal history of irradiation; Z80.9 Family history of malignant neoplasm, unspecified; Z85.118 Personal history of other malignant neoplasm of bronchus and lung; Z85.21 Personal history of malignant neoplasm of larynx
CPT/HCPCS: 36415; 37191; 70450; 70553; 71046; 76700; 80048; 80053; 81001; 82272; 82533; 82550; 82607; 82728; 83540; 83550; 83605; 83735; 84100; 84439; 84443; 84481; 85025; 85027; 85610; 85730; 86850; 86900; 86901; 86920; 87040; 87086; 93005; 93970; 94760; 96361; 96374; 99291

== ENCOUNTER 2019-02-25 11:36 | Inpatient (IN) | payer OTHER ==
[2019-02-25 12:00] LABS: Glucose,Whole Blood 126 mg/dL (75-99)
[2019-02-25] MEDS ORDERED: SODIUM CHLORIDE 0.9% 1,000 ML IV ONE ×2 (12:01→14:48)
[2019-02-25 12:35] LABS: INR 1.3 (<1.2); Partial Thromboplastin Time 28.8 sec (22.0-30.0); Prothrombin Time 13.7 sec (9.0-12.0)
[2019-02-25 12:37] LABS: Albumin 3.5 g/dL (3.5-5.0); Calcium 9.4 mg/dL (8.4-10.2); Potassium 4.6 mmol/L (3.5-5.1); Total Bilirubin 0.6 mg/dL (0.2-1.3); Total Protein 6.2 g/dL (6.3-8.2)
[2019-02-25 12:40] LABS: Anisocytosis Slight; Basophils % (A) 0 %; Eosinophils # (A) 0.1 k/uL (0-0.7); Eosinophils % (A) 1 %; HCT 26.9 % (34.0-46.0); HGB 8.3 gm/dL (11.4-16.0); Hypochromasia Marked; Lymphocytes # (A) 0.3 k/uL (1.0-4.8); Lymphocytes % (A) 2 %; MCH 30.8 pg (25.0-35.0); MCV 99.4 fL (80.0-100.0); Macrocytosis Moderate; Mean Platelet Volume 12.2; Monocytes # (A) 0.1 k/uL (0-1.0); Monocytes % (A) 1 %; Neutrophils # (A) 13.4 k/uL (1.3-7.7); Neutrophils % (A) 96 %; Poikilocytosis Slight; RBC 2.71 m/uL (3.80-5.40); RDW 19.6 % (11.5-15.5); WBC 13.9 k/uL (3.8-10.6)
--- NOTE | 2019-02-25 12:46 | XR ---
EXAMINATION TYPE: XR chest 2V DATE OF EXAM: 02/25/2019 COMPARISON: 02/09/2019 HISTORY: Altered mental status TECHNIQUE: Frontal and lateral views of the chest are obtained. FINDINGS: There is a new patchy right lower lung opacity. Right-sided Mediport is unchanged. Cardia mediastinal silhouette appears enlarged and slightly more pronounced than the prior exam, possibly te chnique. Attention follow-up exams. No sizable pleural effusion or pneumothorax. Left lung remains we ll aerated. No acute osseous pathology. IMPRESSION: New patchy right lower lung opacity may represent early developing pneumonia or atelecta sis.
--- NOTE | 2019-02-25 12:54 | ED ---
General Adult HPI - General Chief complaint: Neuro Symptoms/Deficit Stated complaint: Confused Time Seen by Provider: 02/25/19 11:40 Source: patient, family, RN notes reviewed Mode of arrival: wheelchair Limitations: no limitations - History of Present Illness Initial comments: This is a 53-year-old female presents to the emergency department with a past medical history significant for lung cancer. Comes in today because the daughter brings her in because she is confused since she woke up this morning. Last night the patient did not appear confused according to the daughter. Patient is able to speak clearly but does not make any sense and does not answer questions accurately. According to the daughter she had chemo on Monday. Patient is not complaining of any headache there's been no fever there's been no complaints of chest pain or difficulty breathing the patient had no vomiting or diarrhea. Patient has not complained of any abdominal pain. - Related Data Home Medications Medication Instructions Recorded Confirmed Ondansetron [Zofran ODT] 4 mg PO Q8HR PRN 08/30/18 02/25/19 Atorvastatin [Lipitor] 80 mg PO HS 01/28/19 02/25/19 Metoprolol Tartrate [Lopressor] 25 mg PO BID 02/03/19 02/25/19 levETIRAcetam [Keppra] 500 mg PO BID 02/03/19 02/25/19 predniSONE See Taper PO DAILY 02/25/19 02/25/19 Previous Rx's Medication Instructions Recorded Folic Acid 1 mg PO DAILY #30 tab 08/24/18 Pantoprazole Sodium [Protonix] 40 mg PO DAILY #30 tablet. 08/24/18 Megestrol [Megace] 400 mg PO DAILY #30 cup 09/01/18 Sennosides [Senna] 8.6 mg PO HS PRN #60 tablet 09/09/18 Magnesium Oxide [Mag-Ox] 400 mg PO TID #90 tab 10/26/18 fentaNYL 12MCG/HR PATCH [Duragesic 1 patch TRANSDERM Q72H #10 patch 10/26/18 12MCG/HR] oxyCODONE-APAP 10-325MG [Percocet 1 tab PO QID PRN 3 Days #12 tab 10/26/18 10-325 mg] Nystatin 100,000 Unit/ml Susp 5 ml PO QID #140 ml 02/15/19 [Mycostatin Oral Susp] Allergies Allergy/AdvReac Type Severity Reaction Status Date / Time heparin Allergy Unknown Verified 02/25/19 12:03 Penicillins Allergy Unknown Verified 02/25/19 12:03 Childhood Review of Systems ROS Statement: Those systems with pertinent positive or pertinent negative responses have been documented in the HPI. ROS Other: All systems not noted in ROS Statement are negative. Past Medical History Past Medical History: Cancer, CVA/TIA, GERD/Reflux, Hyperlipidemia, Hypertension, Myocardial Infarction ([place]) Additional Past Medical History / Comment(s): Stage IV metastatic lung cancer, adenocarcinoma, initially diagnosed back in 2016 and the patient has liver metastases. 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 Filter placed to prevent PE Last Myocardial Infarction Date:: 04/30/2013 History of Any Multi-Drug Resistant Organisms: None Reported Past Surgical History: Heart Catheterization, Orthopedic Surgery, Tubal Ligation, Uterine Ablation Additional Past Surgical History / Comment(s): Right lower lobe resection for small cell lung cancer, angioplasty/stenting of a brain aneurysm, carpal tunnel release, laparoscopy and liver biopsy, paracentesis, Past Anesthesia/Blood Transfusion Reactions: No Reported Reaction Past Psychological History: Anxiety, Panic Disorder Smoking Status: Former smoker Past Alcohol Use History: None Reported Past Drug Use History: None Reported - Past Family History Mother Family Medical History: Cancer Father Family Medical History: Cancer General Exam - General Exam Comments Initial Comments: GENERAL: Patient is well-developed and well-nourished. Patient is nontoxic and well- hydrated and is in no acute distress. ENT: Neck is soft and supple. No significant lymphadenopathy is noted. Oropharynx is clear. Moist mucous membranes. Neck has full range of motion without eliciting any pain. EYES: The sclera were anicteric and conjunctiva were pink and moist. Extraocular movements were intact and pupils were equal round and reactive to light. Eyelids were unremarkable. PULMONARY: Unlabored respirations. Good breath sounds bilaterally. No audible rales rhonchi or wheezing was noted. CARDIOVASCULAR: There is a regular rate and rhythm without any murmurs gallops or rubs. Patient has a port ABDOMEN: Soft and nontender with normal bowel sounds. SKIN: Skin is clear with no lesions or rashes and otherwise unremarkable. NEUROLOGIC: Patient is alert and oriented 1. Cranial nerves II through XII are grossly intact. Motor and sensory are also intact. Normal speech, volume and content. Symmetrical smile. MUSCULOSKELETAL: Normal extremities with adequate strength and full range of motion. No lower extremity swelling or edema. No calf tenderness. LYMPHATICS: No significant lymphadenopathy is noted PSYCHIATRIC: Normal psychiatric evaluation. Limitations: no limitations Course Vital Signs 02/25/19 02/25/19 02/25/19 11:38 12:45 13:00 Temperature 98.4 F 98.6 F Pulse Rate 71 77 73 Respiratory 16 16 16 Rate Blood Pressure 83/62 107/76 97/59 O2 Sat by Pulse 100 100 Oximetry Medical Decision Making - Medical Decision Making EKG shows normal sinus rhythm at 75 bpm ID interval 240 QRS is 82 QT interval 358 QTC is 399. Patient's EKG shows no ST segment elevation or depression or T wave abnormalities are noted. Chest x-ray shows possibly early developing pneumonia in the right lung. I started the patient antibiotics +. I spoke with Dr. Koehler he agreed to admit the patient admitted the patient I wrote admitting orders. She will be admitted for the pneumonia as well as altered mental status - Lab Data Result diagrams: 02/25/19 12:15 02/25/19 12:15 Lab Results 02/25/19 02/25/19 02/25/19 Range/Units 11:59 12:15 12:15 WBC 13.9 H (3.8-10.6) k/uL RBC 2.71 L (3.80-5.40) m/uL Hgb 8.3 L (11.4-16.0) gm/dL Hct 26.9 L (34.0-46.0) % MCV 99.4 (80.0-100.0) fL MCH 30.8 (25.0-35.0) pg MCHC 31.0 (31.0-37.0) g/dL RDW 19.6 H (11.5-15.5) % Plt Count 24 L D (150-450) k/uL Neutrophils % 96 % Lymphocytes % 2 % Monocytes % 1 % Eosinophils % 1 % Basophils % 0 % Neutrophils # 13.4 H (1.3-7.7) k/uL Lymphocytes # 0.3 L (1.0-4.8) k/uL Monocytes # 0.1 (0-1.0) k/uL Eosinophils # 0.1 (0-0.7) k/uL Basophils # 0.0 (0-0.2) k/uL Manual Slide Review Performed Large Platelets Present Hypochromasia Marked Poikilocytosis Slight Anisocytosis Slight Macrocytosis Moderate Fragmented RBCs Present PT (9.0-12.0) sec INR (<1.2) APTT (22.0-30.0) sec Sodium 137 (137-145) mmol/L Potassium 4.6 (3.5-5.1) mmol/L Chloride 108 H (98-107) mmol/L Carbon Dioxide 20 L (22-30) mmol/L Anion Gap 9 mmol/L BUN 21 H (7-17) mg/dL Creatinine 0.94 (0.52-1.04) mg/dL Est GFR (CKD-EPI)AfAm 81 (>60 ml/min/1.73 sqM) Est GFR (CKD-EPI)NonAf 71 (>60 ml/min/1.73 sqM) Glucose 125 H (74-99) mg/dL POC Glucose (mg/dL) 126 H (75-99) mg/dL POC Glu Health Commissioner ID Tevin Seaman Plasma Lactic Acid Chase (0.7-2.0) mmol/L Calcium 9.4 (8.4-10.2) mg/dL Total Bilirubin 0.6 (0.2-1.3) mg/dL AST 48 H (14-36) U/L ALT 112 H (9-52) U/L Alkaline Phosphatase 91 (38-126) U/L Troponin I (0.000-0.034) ng/mL Total Protein 6.2 L (6.3-8.2) g/dL Albumin 3.5 (3.5-5.0) g/dL Urine Color Urine Appearance (Clear) Urine pH (5.0-8.0) Ur Specific Mason (1.001-1.035) Urine Protein (Negative) Urine Glucose (UA) (Negative) Urine Ketones (Negative) Urine Blood (Negative) Urine Nitrite (Negative) Urine Bilirubin (Negative) Urine Urobilinogen (<2.0) mg/dL Ur Leukocyte Esterase (Negative) 02/25/19 02/25/19 02/25/19 Range/Units 12:15 12:15 12:15 WBC (3.8-10.6) k/uL RBC (3.80-5.40) m/uL Hgb (11.4-16.0) gm/dL Hct (34.0-46.0) % MCV (80.0-100.0) fL MCH (25.0-35.0) pg MCHC (31.0-37.0) g/dL RDW (11.5-15.5) % Plt Count (150-450) k/uL Neutrophils % % Lymphocytes % % Monocytes % % Eosinophils % % Basophils % % Neutrophils # (1.3-7.7) k/uL Lymphocytes # (1.0-4.8) k/uL Monocytes # (0-1.0) k/uL Eosinophils # (0-0.7) k/uL Basophils # (0-0.2) k/uL Manual Slide Review Large Platelets Hypochromasia Poikilocytosis Anisocytosis Macrocytosis Fragmented RBCs PT 13.7 H (9.0-12.0) sec INR 1.3 H (<1.2) APTT 28.8 (22.0-30.0) sec Sodium (137-145) mmol/L Potassium (3.5-5.1) mmol/L Chloride (98-107) mmol/L Carbon Dioxide (22-30) mmol/L Anion Gap mmol/L BUN (7-17) mg/dL Creatinine (0.52-1.04) mg/dL Est GFR (CKD-EPI)AfAm (>60 ml/min/1.73 sqM) Est GFR (CKD-EPI)NonAf (>60 ml/min/1.73 sqM) Glucose (74-99) mg/dL POC Glucose (mg/dL) (75-99) mg/dL POC Glu Health Commissioner ID Plasma Lactic Acid Chase 1.3 (0.7-2.0) mmol/L Calcium (8.4-10.2) mg/dL Total Bilirubin (0.2-1.3) mg/dL AST (14-36) U/L ALT (9-52) U/L Alkaline Phosphatase (38-126) U/L Troponin I 0.444 H* (0.000-0.034) ng/mL Total Protein (6.3-8.2) g/dL Albumin (3.5-5.0) g/dL Urine Color Urine Appearance (Clear) Urine pH (5.0-8.0) Ur Specific Mason (1.001-1.035) Urine Protein (Negative) Urine Glucose (UA) (Negative) Urine Ketones (Negative) Urine Blood (Negative) Urine Nitrite (Negative) Urine Bilirubin (Negative) Urine Urobilinogen (<2.0) mg/dL Ur Leukocyte Esterase (Negative) 02/25/19 Range/Units 14:15 WBC (3.8-10.6) k/uL RBC (3.80-5.40) m/uL Hgb (11.4-16.0) gm/dL Hct (34.0-46.0) % MCV (80.0-100.0) fL MCH (25.0-35.0) pg MCHC (31.0-37.0) g/dL RDW (11.5-15.5) % Plt Count (150-450) k/uL Neutrophils % % Lymphocytes % % Monocytes % % Eosinophils % % Basophils % % Neutrophils # (1.3-7.7) k/uL Lymphocytes # (1.0-4.8) k/uL Monocytes # (0-1.0) k/uL Eosinophils # (0-0.7) k/uL Basophils # (0-0.2) k/uL Manual Slide Review Large Platelets Hypochromasia Poikilocytosis Anisocytosis Macrocytosis Fragmented RBCs PT (9.0-12.0) sec INR (<1.2) APTT (22.0-30.0) sec Sodium (137-145) mmol/L Potassium (3.5-5.1) mmol/L Chloride (98-107) mmol/L Carbon Dioxide (22-30) mmol/L Anion Gap mmol/L BUN (7-17) mg/dL Creatinine (0.52-1.04) mg/dL Est GFR (CKD-EPI)AfAm (>60 ml/min/1.73 sqM) Est GFR (CKD-EPI)NonAf (>60 ml/min/1.73 sqM) Glucose (74-99) mg/dL POC Glucose (mg/dL) (75-99) mg/dL POC Glu Health Commissioner ID Plasma Lactic Acid Chase (0.7-2.0) mmol/L Calcium (8.4-10.2) mg/dL Total Bilirubin (0.2-1.3) mg/dL AST (14-36) U/L ALT (9-52) U/L Alkaline Phosphatase (38-126) U/L Troponin I (0.000-0.034) ng/mL Total Protein (6.3-8.2) g/dL Albumin (3.5-5.0) g/dL Urine Color Light Yellow Urine Appearance Clear (Clear) Urine pH 6.5 (5.0-8.0) Ur Specific Mason 1.011 (1.001-1.035) Urine Protein Negative (Negative) Urine Glucose (UA) Negative (Negative) Urine Ketones Negative (Negative) Urine Blood Negative (Negative) Urine Nitrite Negative (Negative) Urine Bilirubin Negative (Negative) Urine Urobilinogen <2.0 (<2.0) mg/dL Ur Leukocyte Esterase Negative (Negative) Disposition Clinical Impression: Pneumonia, Altered mental status Disposition: ADMITTED IP TO THIS HOSP Referrals: Latisha Ziegler MD [Primary Care Provider] - 1-2 days Time of Disposition: 14:53
[2019-02-25 13:17] LABS: Platelet Count 24 k/uL (150-450); RBC Fragments Present
[2019-02-25 13:18] LABS: Large Platelets Present
--- NOTE | 2019-02-25 13:53 | CT ---
EXAMINATION TYPE: CT brain wo con DATE OF EXAM: 02/25/2019 COMPARISON: 02/09/2019 INDICATION: Confusion, lung CA DLP: 1053.6 mGycm, Automated exposure control for dose reduction was used. CONTRAST: None CT of the brain is performed utilizing 3 mm thick sections through the posterior fossa and 3 mm thick sections through the remaining calvarium. Study is performed within 24 hours of arrival to the hosp ital. No abnormal hyperdensity is present to suggest an acute intracranial hemorrhage. No mass lesion is evident. No suspicious vasogenic edema is evident. No acute infarcts are evident. Ventricles and sulci are appropriate for the patient age. Paranasal sinuses and mastoid air cells within the [id number] are clear. No suspicious lytic or sc lerotic lesions within the calvarium are evident. There appears to be prior occipital craniotomy. IMPRESSIONS: 1. No suspicious acute changes to suggest underlying metastatic lesions. 2. No acute intracranial process.
[2019-02-25 14:36] LABS: Appearance,Urine Clear (Clear); Bilirubin,Urine Negative (Negative); Blood,Urine Negative (Negative); Color,Urine Light Yellow; Glucose,Urine (UA) Negative (Negative); Ketones,Urine Negative (Negative); Leukocyte Esterase,Urine Negative (Negative); Nitrite,Urine Negative (Negative); PH, Urine 6.5 (5.0-8.0); Protein,Urine Negative (Negative); Specific Gravity,Urine 1.011 (1.001-1.035); Urobilinogen,Urine <2.0 mg/dL (<2.0)
[2019-02-25] MEDS ORDERED: LEVOFLOXACIN 750MG-D5W PMX 750 MG in DEXTROSE/WATER 1 150ML.BAG IVPB STA (14:53)
[2019-02-25 14:56] LABS: Amphetamine Screen,Urine Not Detected (NotDetected); Benzodiazepines Screen,Urine Detected (NotDetected); Cocaine Screen,Urine Not Detected (NotDetected); Opiate Screen,Urine Detected (NotDetected); Phencyclidine Screen,Urine Not Detected (NotDetected); Urn Cannabinoid Scrn Not Detected (NotDetected)
[2019-02-25 14:57] LABS: Barbiturate Screen,Urine Not Detected (NotDetected); Methadone Screen, Urine Not Detected (NotDetected); Oxycodone Screen, Urine Not Detected (NotDetected); Tricyclic Antidepressant,Urine Not Detected (NotDetected)
[2019-02-25] MEDS ORDERED: SENNOSIDES 8.6 MG TAB PO PRN (18:26)
[2019-02-25] MEDS ORDERED: ONDANSETRON ODT 4 MG TAB PO PRN (18:26)
[2019-02-25] MEDS: PANTOPRAZOLE 40 MG TABLET PO SCH (19:31)
[2019-02-25] MEDS: oxyCODONE-APAP 10-325MG 1 EACH TAB PO PRN (19:31)
[2019-02-25] MEDS: METOPROLOL TARTRATE 25 MG TAB PO SCH (21:46)
[2019-02-25] MEDS: levETIRAcetam 500 MG TAB PO SCH (21:46)
[2019-02-25] MEDS: ATORVASTATIN 80 MG TAB PO SCH (21:47)
[2019-02-26] MEDS: PANTOPRAZOLE 40 MG TABLET PO SCH (07:55)
[2019-02-26] MEDS: predniSONE 20 MG TAB PO SCH (07:55)
[2019-02-26] MEDS: levETIRAcetam 500 MG TAB PO SCH ×2 (07:56→21:04)
[2019-02-26] MEDS: FOLIC ACID 1 MG TAB PO SCH (07:56)
[2019-02-26] MEDS: MEGESTROL 400 MG/10 ML CUP PO SCH (07:56)
[2019-02-26] MEDS: METOPROLOL TARTRATE 25 MG TAB PO SCH ×2 (08:04→20:58)
--- NOTE | 2019-02-26 10:58 | P.CONS ---
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 Stanley valladares. Please defer to medical consult dated 02/11 for patient's malignancy history details as well as her complex medical history. Patient is again admitted with signs and symptoms suggestive of stroke. CT of the head on admit with no new hemorrhagic or ischemic areas of concern mentioned. She had an elevated troponin. When seen today patient's speech was forced, expressive aphasia, followed some of the conversation, most questions answered appropriately. She received maintenance alimta 02/22, she denied any fever, nausea, diarrhea-that she could remember Review of Systems 14 point review of systems is difficult to obtain but, it is as stated in HPI ROS unobtainable: due to mental status Past Medical History Past Medical History: Coronary Artery Disease (CAD), Cancer, COPD, CVA/TIA, GERD/Reflux, Hyperlipidemia, Hypertension, Myocardial Infarction ([place]), Pulmonary Embolus ([place]), Vascular Disorder Additional Past Medical History / Comment(s): Stage IV metastatic R lung cancer, mets to liver/pelvic masses and recurrent to R lung, initially diagnosed back in 2016-pt currently receiving chemotherapy-last time 02/22/19, laryngeal cancer 2018 postradiation therapy, recent small subarachnoid bleeding on 01/28/2019 withno intervention required, chronic thrombocytopenia, anemia, 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 Last Myocardial Infarction Date:: 04/30/2013 History of Any Multi-Drug Resistant Organisms: None Reported Past Surgical History: Heart Catheterization, Orthopedic Surgery, Tubal Ligation, Uterine Ablation Additional Past Surgical History / Comment(s): Bronchoscopies/bx, right lower lobe resection for lung cancer, IVC filter, stenting of a brain aneurysm, R carpal tunnel release, laparoscopy and liver biopsy, paracentesis x2, surgery to remove benign pelvic mass, D&C. Past Anesthesia/Blood Transfusion Reactions: No Reported Reaction Smoking Status: Current every day smoker - Past Family History Mother Family Medical History: Cancer Additional Family Medical History / Comment(s): Mother had colon cancer. Father Family Medical History: Cancer Additional Family Medical History / Comment(s): Father had lung cancer. Medications and Allergies Home Medications Medication Instructions Recorded Confirmed Type Folic Acid 1 mg PO DAILY #30 tab 08/24/18 02/25/19 Rx Pantoprazole Sodium [Protonix] 40 mg PO DAILY #30 tablet. 08/24/18 02/25/19 Rx Ondansetron [Zofran ODT] 4 mg PO Q8HR PRN 08/30/18 02/25/19 History Megestrol [Megace] 400 mg PO DAILY #30 cup 09/01/18 02/25/19 Rx Sennosides [Senna] 8.6 mg PO HS PRN #60 tablet 09/09/18 02/25/19 Rx Magnesium Oxide [Mag-Ox] 400 mg PO TID #90 tab 10/26/18 02/25/19 Rx fentaNYL 12MCG/HR PATCH [Duragesic 1 patch TRANSDERM Q72H #10 patch 10/26/18 02/25/19 Rx 12MCG/HR] oxyCODONE-APAP 10-325MG [Percocet 1 tab PO QID PRN 3 Days #12 tab 10/26/18 02/25/19 Rx 10-325 mg] Atorvastatin [Lipitor] 80 mg PO HS 01/28/19 02/25/19 History Metoprolol Tartrate [Lopressor] 25 mg PO BID 02/03/19 02/25/19 History levETIRAcetam [Keppra] 500 mg PO BID 02/03/19 02/25/19 History Nystatin 100,000 Unit/ml Susp 5 ml PO QID #140 ml 02/15/19 02/25/19 Rx [Mycostatin Oral Susp] predniSONE See Taper PO DAILY 02/25/19 02/25/19 History Allergies Allergy/AdvReac Type Severity Reaction Status Date / Time heparin Allergy Unknown Verified 02/25/19 12:03 Penicillins Allergy Unknown Verified 02/25/19 12:03 Childhood Physical Exam Vitals: Vital Signs Temp Pulse Pulse Resp BP BP Pulse Ox 02/26/19 08:02 87 18 110/60 02/26/19 05:00 98.3 F 82 16 89/63 100 02/25/19 21:31 98.5 F 87 16 95/65 100 02/25/19 16:15 98.6 F 89 17 107/69 100 02/25/19 15:34 99.7 F H 105 H 20 138/80 100 02/25/19 15:20 79 11 L 95/52 02/25/19 15:10 79 10 L 95/52 02/25/19 15:00 79 25 H 98/48 02/25/19 14:50 80 10 L 98/48 02/25/19 14:40 80 0 L 98/48 02/25/19 14:30 80 7 L 87/74 02/25/19 14:20 79 8 L 87/74 02/25/19 14:10 78 11 L 87/74 02/25/19 14:00 82 14 02/25/19 13:50 80 15 02/25/19 13:40 92 20 02/25/19 13:30 97/59 02/25/19 13:20 76 11 L 97/59 02/25/19 13:10 73 7 L 97/59 02/25/19 13:00 77 12 107/76 02/25/19 12:50 77 9 L 107/76 02/25/19 12:45 98.6 F 77 16 107/76 100 02/25/19 12:40 98.7 F 76 16 97/57 100 02/25/19 12:20 79 16 100 02/25/19 12:10 79 16 100 02/25/19 12:00 78 16 107/48 100 02/25/19 11:52 16 107/48 100 02/25/19 11:38 98.4 F 71 16 83/62 100 Intake and Output 02/25/19 02/26/19 02/26/19 22:59 06:59 14:59 Intake Total 350 590 Balance 350 590 Intake: Intake, IV Titration 350 Amount Sodium Chloride 0.9% 1, 350 000 ml @ 100 mls/hr IV . Q10H ONE Rx#:[id number] Oral 590 Other: Voiding Method Toilet # Voids 1 3 - Constitutional General appearance: average body habitus, cooperative, no acute distress - EENT Eyes: anicteric sclerae, EOMI ENT: hearing grossly normal, normal oropharynx - Neck Neck: no lymphadenopathy - Respiratory Respiratory: bilateral: CTA - Cardiovascular Rhythm: regular Heart sounds: normal: S1, S2 Abnormal Heart Sounds: no systolic murmur, no diastolic murmur, no rub, no S3 Gallop, no S4 Gallop, no click, no other - Gastrointestinal General gastrointestinal: no absent bowel sounds, no decreased bowel sounds, no distended, no hepatomegaly, no hyperactive bowel sounds, normal bowel sounds, no organomegaly, no rigid, no scaphoid, soft, no splenomegaly, no tenderness, no umbilical hernia, no ventral hernia - Neurologic expressive aphasia - Musculoskeletal Musculoskeletal: strength equal bilaterally - Psychiatric Alert, oriented to self, was able to read the time from traditional watch, no tongue deviation, slow response to questions and following instructions Results CBC & Chem 7: 02/26/19 12:32 02/26/19 12:32 Labs: Abnormal Lab Results - Last 24 Hours (Table) 02/25/19 02/25/19 02/25/19 Range/Units 11:59 12:15 12:15 WBC 13.9 H (3.8-10.6) k/uL RBC 2.71 L (3.80-5.40) m/uL Hgb 8.3 L (11.4-16.0) gm/dL Hct 26.9 L (34.0-46.0) % RDW 19.6 H (11.5-15.5) % Plt Count 24 L D (150-450) k/uL Neutrophils # 13.4 H (1.3-7.7) k/uL Lymphocytes # 0.3 L (1.0-4.8) k/uL PT (9.0-12.0) sec INR (<1.2) Chloride 108 H (98-107) mmol/L Carbon Dioxide 20 L (22-30) mmol/L BUN 21 H (7-17) mg/dL Glucose 125 H (74-99) mg/dL POC Glucose (mg/dL) 126 H (75-99) mg/dL Magnesium (1.6-2.3) mg/dL AST 48 H (14-36) U/L ALT 112 H (9-52) U/L Troponin I (0.000-0.034) ng/mL Total Protein 6.2 L (6.3-8.2) g/dL Urine Opiates Screen (NotDetected) U Benzodiazepines Scrn (NotDetected) 02/25/19 02/25/19 02/25/19 Range/Units 12:15 12:15 12:15 WBC (3.8-10.6) k/uL RBC (3.80-5.40) m/uL Hgb (11.4-16.0) gm/dL Hct (34.0-46.0) % RDW (11.5-15.5) % Plt Count (150-450) k/uL Neutrophils # (1.3-7.7) k/uL Lymphocytes # (1.0-4.8) k/uL PT 13.7 H (9.0-12.0) sec INR 1.3 H (<1.2) Chloride (98-107) mmol/L Carbon Dioxide (22-30) mmol/L BUN (7-17) mg/dL Glucose (74-99) mg/dL POC Glucose (mg/dL) (75-99) mg/dL Magnesium 2.5 H (1.6-2.3) mg/dL AST (14-36) U/L ALT (9-52) U/L Troponin I 0.444 H* (0.000-0.034) ng/mL Total Protein (6.3-8.2) g/dL Urine Opiates Screen (NotDetected) U Benzodiazepines Scrn (NotDetected) 02/25/19 Range/Units 14:15 WBC (3.8-10.6) k/uL RBC (3.80-5.40) m/uL Hgb (11.4-16.0) gm/dL Hct (34.0-46.0) % RDW (11.5-15.5) % Plt Count (150-450) k/uL Neutrophils # (1.3-7.7) k/uL Lymphocytes # (1.0-4.8) k/uL PT (9.0-12.0) sec INR (<1.2) Chloride (98-107) mmol/L Carbon Dioxide (22-30) mmol/L BUN (7-17) mg/dL Glucose (74-99) mg/dL POC Glucose (mg/dL) (75-99) mg/dL Magnesium (1.6-2.3) mg/dL AST (14-36) U/L ALT (9-52) U/L Troponin I (0.000-0.034) ng/mL Total Protein (6.3-8.2) g/dL Urine Opiates Screen Detected H (NotDetected) U Benzodiazepines Scrn Detected H (NotDetected) CT Scan - head: report reviewed Assessment and Plan (1) Altered mental status Narrative/Plan: Patient was supposed to be taking a baby aspirin after being diagnosed with is chemic CVA previously but, she states she was not taking. Encouraged patient to take her medications as prescribed. Also, patient is a history of PE, was on Eliquis. Patient was going to be resumed on this once her platelets were greater than 50,000 but, treatment has brought them down again, do not resume eliquis at this time. MRI of the brain is pending. Neurology is on the case Status: Acute Priority: High Code(s): R41.82 - ALTERED MENTAL STATUS, UNSPECIFIED SNOMED Code(s): 790698393 (2) Metastatic lung cancer (metastasis from lung to other site) Narrative/Plan: She did have her 1st cycle of maintenance alimta 4 days ago. Alimta is a folate antimetabolite. Pt is supplemented with IM B12 and is taking folic acid. Plan would be to continue with treatment as long as her current situation resolves, not suspecting that they are related. Harry typically occurs within 7-10 days from treatment. We'll monitor counts, no transfusions or GCSF at this time. Status: Chronic Priority: Medium Code(s): C34.90 - MALIGNANT NEOPLASM OF UNSP PART OF UNSP BRONCHUS OR LUNG SNOMED Code(s): 69482026 Plan: Doctor attests: I performed a history and physical examination of this patient, developed impression and plan of care. Discussed with dictator. I agree with dictators note, documented as a scribe. <Akua,Miguel - Last Filed: 03/03/19 21:47> Results CBC & Chem 7: 03/01/19 02:56 03/01/19 02:56 Labs: Microbiology - Last 24 Hours (Table) 02/27/19 11:17 Blood Culture - Preliminary Blood No Growth after 96 hours 03/01/19 Unknown Gram Stain - Final Sputum Sputum Culture - Final 02/28/19 09:05 Blood Culture - Preliminary Blood No Growth after 72 hours 02/28/19 08:41 Blood Culture - Preliminary Blood No Growth after 72 hours Assessment and Plan Plan: Agree with above Patient's situation is very complicated. Discussed in detail with her and her daughter in the office and also inpatient. For her history of DVT, and CVAs, she should be on anticoagulation and aspirin. However, for that, platelet count should ideally be above 50,000. Her count has fluctuated significantly, due to immune mediated, cytopenia, followed by recovery, followed by dropped again possibly due to chemotherapy effect versus recurrent immune phenomenon. \ Anticoagulation has been off and the patient is status post IVC filter plac ement. May have to consider antiplatelet therapy use for recurrent CVAs, despite less than ideal platelet count, based on risk-benefit. Review of literature for possible options to keep pitted count in a safe range. At this time there are no definite approved [facility] modalities for the same
[2019-02-26 11:59] VITALS: BMI 24.6
[2019-02-26 13:01] LABS: Anisocytosis Slight; Basophils % (A) 0 %; Eosinophils # (A) 0.1 k/uL (0-0.7); Eosinophils % (A) 1 %; HCT 24.2 % (34.0-46.0); HGB 7.4 gm/dL (11.4-16.0); Hypochromasia Marked; Lymphocytes # (A) 0.3 k/uL (1.0-4.8); Lymphocytes % (A) 3 %; MCH 30.3 pg (25.0-35.0); MCHC 30.4 g/dL (31.0-37.0); MCV 99.6 fL (80.0-100.0); Macrocytosis Moderate; Mean Platelet Volume 12.8; Monocytes # (A) 0.1 k/uL (0-1.0); Monocytes % (A) 1 %; Neutrophils # (A) 11.2 k/uL (1.3-7.7); Neutrophils % (A) 95 %; Platelet Count 28 k/uL (150-450); RBC 2.43 m/uL (3.80-5.40); RDW 19.2 % (11.5-15.5); WBC 11.7 k/uL (3.8-10.6)
[2019-02-26 13:13] LABS: African American GFR (CKD) >90 (>60 ml/min/1.73 sqM); Anion Gap 7 mmol/L; Blood Urea Nitrogen 17 mg/dL (7-17); Calcium 8.5 mg/dL (8.4-10.2); Carbon Dioxide 19 mmol/L (22-30); Chloride 111 mmol/L (98-107); Glucose 119 mg/dL (74-99); Potassium 4.5 mmol/L (3.5-5.1); Sodium 137 mmol/L (137-145)
[2019-02-26] MEDS: oxyCODONE-APAP 10-325MG 1 EACH TAB PO PRN ×2 (13:48→21:04)
[2019-02-26] MEDS: LEVOFLOXACIN 750MG-D5W PMX 750 MG in DEXTROSE/WATER 1 150ML.BAG IVPB SCH (13:50)
[2019-02-26 13:53] LABS: Large Platelets Present; Poikilocytosis (M) Present
--- NOTE | 2019-02-26 14:58 | P.CRDCN ---
History of Present Illness History of present illness: This is a pleasant 53-year-old -[place]ish female past medical history significant for metastatic lung cancer status post radiation, chemotherapy and lumpectomy. She also has a history of PE, hypertension, dyslipidemia, subarachnoid hemorrhage and nicotine dependence. Per the daughter, she was initially diagnosed with lung cancer in 2016 and underwent lobectomy. Then in 2018 she was found to have throat cancer and reoccurrence in lung with metastasis to the liver. She is currently onchemotherapy. 01/28/2019 she was found to have a subarachnoid hemorrhage and was transferred to [facility] for further evaluation. We have asked to see her in consultation secondary to elevated troponin. The patient presented to the hospital with symptoms of altered mental status per the daughter. She underwent a round of chemotherapy on Monday. She denies symptoms of chest discomfort, shortness of breath, dizziness, palpitations, nausea, vomiting or diaphoresis. She is seen and ex amined resting comfortably in bed in no acute distress laying flat. EKG reveals sinus mechanism, LVH and T-wave inversions in the inferior leads. Laboratory data reviewed, WBC on admission 13.9 repeat today 11.7, hemoglobin 7.4, platelets 28, sodium 137, potassium 4.5, creatinine 0.86, troponin 0.444, 0.289. Currently maintained on Lopressor 25 mg twice a day and atorvastatin 80 mg daily. Most recent limited echocardiogram obtained October 2018 also in the setting of elevated troponin reveals normal LV size and function with ejection fraction 55-60% with no wall motion abnormalities. Chest x-ray reveals a patchy right lower lung opaque a guest service representative early developing pneumonia or atelect asis. Brain CT is negative for acute intracranial process. There is no suspicious underlying metastatic lesions. Daughter is at the bedside and provides much of the prior history. At the time of my exam: CONSTITUTIONAL: Denies fever. Denies chills. EYES: Denies blurred vision. Denies vision changes. Denies eye pain. EARS, NOSE, MOUTH & THROAT: Denies headache. Denies sore throat. Denies ear pa in. CARDIOVASCULAR: Denies chest pain. Denies shortness of breath. Denies orthopnea. Denies PND. Denies palpitations. RESPIRATORY: Denies cough. GASTROINTESTINAL: Denies abdominal pain. Denies diarrhea. Denies constipation. Denies nausea. Denies vomiting. MUSCULOSKELETAL: Denies myalgias. INTEGUMENTARY: Denies pruitis. Denies rash. NEUROLOGIC: Denies numbness. Denies tingling. Denies weakness. PSYCHIATRIC: Denies anxiety. Denies depression. ENDOCRINE: Denies fatigue. Denies weight change. Denies polydipsia. Denies polyurina. GENITOURINARY: Denies burning, hematuria or urgency with micturation. HEMATOLOGIC: Stated history of anemia. History of subarrachnoid bleeding 01/2019. Blood pressure 111/60 heart rate 87 afebrile maintaining oxygen saturation on room air. GENERAL: This is a 53-year-old -[place] female in no apparent distress at the time of my examination. HEENT: Head is atraumatic, normocephalic. Pupils are equal, round. Sclerae anicteric. Conjunctivae are clear. Mucous membranes of the mouth are moist. Neck is supple. There is no jugular venous distention. No carotid bruit is heard. LUNGS: Clear to auscultation no wheezes, rales or rhonchi. No chest wall tenderness is noted on palpation or with deep breathing. HEART: Regular rate and rhythm without murmurs, rubs or gallops. S1 and S2 heard. ABDOMEN: Soft, nontender. Bowel sounds are heard. No organomegaly noted. EXTREMITIES: No evidence of peripheral edema and no calf tenderness noted. VASCULAR: Radial and dorsalis pedis pulses palpated, no evidence of clubbing. NEUROLOGIC: Patient is awake, alert and oriented x3. ASSESSMENT Altered mental status Elevated troponin, unclear significance. Likely related to oxygen supplied mismatch in the setting of anemia. Anemia Thrombocytopenia Leukocytosis Recurrent small cell lung cancer with mets History of subarrachnoid hemorrhage Hypertension Dyslipidemia History of PE Chronic nicotine dependence PLAN Continue to trend cardiac enzymes. Obtain 2D echocardiogram and doppler study to assess cardiac structure and function. Continue lopressor and atrovastatin as previously ordered. No aspirin secondary to recent brain hemorrhage. Further recommendations to follow based on clinical course. Thank you kindly for this consultation. Nurse Practitioner note has been reviewed, I agree with a documented findings and plan of care. Patient was seen and examined. 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 Last Myocardial Infarction Date:: 04/30/2013 History of Any Multi-Drug Resistant Organisms: None Reported Past Surgical History: Heart Catheterization, Orthopedic Surgery, Tubal Ligation, Uterine Ablation Additional Past Surgical History / Comment(s): Bronchoscopies/bx, right lower lobe resection for lung cancer, IVC filter, stenting of a brain aneurysm, R carpal tunnel release, laparoscopy and liver biopsy, paracentesis x2, surgery to remove benign pelvic mass, D&C. Past Anesthesia/Blood Transfusion Reactions: No Reported Reaction Smoking Status: Current every day smoker - Past Family History Mother Family Medical History: Cancer Additional Family Medical History / Comment(s): Mother had colon cancer. Father Family Medical History: Cancer Additional Family Medical History / Comment(s): Father had lung cancer. Medications and Allergies Home Medications Medication Instructions Recorded Confirmed Type Folic Acid 1 mg PO DAILY #30 tab 08/24/18 02/25/19 Rx Pantoprazole Sodium [Protonix] 40 mg PO DAILY #30 tablet. 08/24/18 02/25/19 Rx Ondansetron [Zofran ODT] 4 mg PO Q8HR PRN 08/30/18 02/25/19 History Megestrol [Megace] 400 mg PO DAILY #30 cup 09/01/18 02/25/19 Rx Sennosides [Senna] 8.6 mg PO HS PRN #60 tablet 09/09/18 02/25/19 Rx Magnesium Oxide [Mag-Ox] 400 mg PO TID #90 tab 10/26/18 02/25/19 Rx fentaNYL 12MCG/HR PATCH [Duragesic 1 patch TRANSDERM Q72H #10 patch 10/26/18 02/25/19 Rx 12MCG/HR] oxyCODONE-APAP 10-325MG [Percocet 1 tab PO QID PRN 3 Days #12 tab 10/26/18 02/25/19 Rx 10-325 mg] Atorvastatin [Lipitor] 80 mg PO HS 01/28/19 02/25/19 History Metoprolol Tartrate [Lopressor] 25 mg PO BID 02/03/19 02/25/19 History levETIRAcetam [Keppra] 500 mg PO BID 02/03/19 02/25/19 History Nystatin 100,000 Unit/ml Susp 5 ml PO QID #140 ml 02/15/19 02/25/19 Rx [Mycostatin Oral Susp] predniSONE See Taper PO DAILY 02/25/19 02/25/19 History Allergies Allergy/AdvReac Type Severity Reaction Status Date / Time heparin Allergy Unknown Verified 02/25/19 12:03 Penicillins Allergy Unknown Verified 02/25/19 12:03 Childhood Physical Exam Vitals: Vital Signs Temp Pulse Pulse Resp BP BP Pulse Ox 02/26/19 08:02 87 18 110/60 02/26/19 05:00 98.3 F 82 16 89/63 100 02/25/19 21:31 98.5 F 87 16 95/65 100 02/25/19 16:15 98.6 F 89 17 107/69 100 02/25/19 15:34 99.7 F H 105 H 20 138/80 100 02/25/19 15:20 79 11 L 95/52 02/25/19 15:10 79 10 L 95/52 02/25/19 15:00 79 25 H 98/48 02/25/19 14:50 80 10 L 98/48 Intake and Output 02/25/19 02/26/19 02/26/19 22:59 06:59 14:59 Intake Total 350 590 Balance 350 590 Intake: Intake, IV Titration 350 Amount Sodium Chloride 0.9% 1, 350 000 ml @ 100 mls/hr IV . Q10H ONE Rx#:[id number] Oral 590 Other: Voiding Method Toilet # Voids 1 3 Weight 63.049 kg Results 02/26/19 12:32 02/26/19 12:32 Cardiac Enzymes 02/26/19 Range/Units 12:32 Troponin I 0.289 H* (0.000-0.034) ng/mL CBC 02/26/19 Range/Units 12:32 WBC 11.7 H (3.8-10.6) k/uL RBC 2.43 L (3.80-5.40) m/uL Hgb 7.4 L (11.4-16.0) gm/dL Hct 24.2 L (34.0-46.0) % Plt Count 28 L (150-450) k/uL Comprehensive Metabolic Panel 02/26/19 Range/Units 12:32 Sodium 137 (137-145) mmol/L Potassium 4.5 (3.5-5.1) mmol/L Chloride 111 H (98-107) mmol/L Carbon Dioxide 19 L (22-30) mmol/L BUN 17 (7-17) mg/dL Creatinine 0.86 (0.52-1.04) mg/dL Glucose 119 H (74-99) mg/dL Calcium 8.5 (8.4-10.2) mg/dL Current Medications Generic Name Dose Route Start Last Admin Trade Name Freq PRN Reason Stop Dose Admin Atorvastatin Calcium 80 mg 02/25/19 21:00 02/25/19 21:47 Lipitor PO 80 mg HS NAINA Administration Folic Acid 1 mg 02/26/19 09:00 02/26/19 07:56 Folic Acid PO 1 mg DAILY NAINA Administration Levofloxacin 750 mg/ IV 150 mls @ 100 mls/hr 02/26/19 15:00 02/26/19 13:50 Solution IVPB 100 mls/hr Q24H NAINA Administration Levetiracetam 500 mg 02/25/19 21:00 02/26/19 07:56 Keppra PO 500 mg BID NAINA Administration Megestrol Acetate 400 mg 02/26/19 09:00 02/26/19 07:56 Megace PO 400 mg DAILY NAINA Administration Metoprolol Tartrate 25 mg 02/25/19 21:00 02/26/19 08:04 Lopressor PO 25 mg BID NAINA Administration Ondansetron HCl 4 mg 02/25/19 18:26 Zofran Odt PO Q8HR PRN Nausea Oxycodone/Acetaminophen 1 each 02/25/19 18:26 02/26/19 13:48 Percocet 10-325 PO 1 each QID PRN Administration Pain Pantoprazole Sodium 40 mg 02/25/19 18:30 02/26/19 07:55 Protonix PO 40 mg [id number] NAINA Administration Prednisone 20 mg 02/26/19 09:00 02/26/19 07:55 PO 20 mg DAILY NAINA Administration Senna 8.6 mg 02/25/19 18:26 Senokot PO HS PRN Constipation Intake and Output 02/25/19 02/26/19 02/26/19 22:59 06:59 14:59 Intake Total 350 590 Balance 350 590 Intake: Intake, IV Titration 350 Amount Sodium Chloride 0.9% 1, 350 000 ml @ 100 mls/hr IV . Q10H ONE Rx#:[id number] Oral 590 Other: Voiding Method Toilet # Voids 1 3 Weight 63.049 kg Patient Weight 02/27/19 06:59 Weight 63.049 kg 02/26/19 12:32 02/26/19 12:32
[2019-02-26] MEDS: SODIUM CHLORIDE 0.9% 1,000 ML IV SCH ×2 (17:33→21:05)
--- NOTE | 2019-02-26 18:38 | P.CNNES ---
History of Present Illness Consult date: 02/26/19 Requesting physician: Annabella Koehler Reason for Consult: Confusion, aphasia History of Present Illness: Patient is a 53-year-old female, with history of metastatic adenocarcinoma of lung in July 2015, underwent lobectomy in August 2015, with cancer recurrence in July 2018. She also had early stage laryngeal cancer diagnosed in April 2018 that was treated with radiation. Patient not able to provide any history. I spoke to her daughter, who states that patient developed acute onset of neurological symptoms on 02/23/2019 with acute loss of vision of the right eye. Everything went black in the right eye. Patient did not seek medical attention. Next day she was better. On Monday, yesterday patient was noted to have acute speech difficulty, not making sense, not able to express herself, therefore was brought to the hospital. Computed tomography scan of the head from yesterday was reported as normal. On my review, it revealed some slight hyperdensity involving the left posterior fro ntal parietal subarachnoid region suggestive of residual subarachnoid hemorrhage, does not appear new. Also with slight hypodensity in the left posterior parietal subcortical region. Patient has history of subarachnoid hemorrhage on 01/28/2019 related to thrombocytopenia with platelets 18,000. Vicki medrano's MRI of the brain from 08/29/2018 showed focal hyperintensity within the anterior right frontal lobe deep white matter on T2 and inversion recovery weighted sequences as well as diffusion. Acute lacunar infarction to be considered. Patient's 2-D echo from 08/16/2018 showed EF 60-65%. Normal left atrial size. 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 Last Myocardial Infarction Date:: 04/30/2013 History of Any Multi-Drug Resistant Organisms: None Reported Past Surgical History: Heart Catheterization, Orthopedic Surgery, Tubal Ligation, Uterine Ablation Additional Past Surgical History / Comment(s): Bronchoscopies/bx, right lower lobe resection for lung cancer, IVC filter, stenting of a brain aneurysm, R carpal tunnel release, laparoscopy and liver biopsy, paracentesis x2, surgery to remove benign pelvic mass, D&C. Past Anesthesia/Blood Transfusion Reactions: No Reported Reaction Smoking Status: Current every day smoker - Past Family History Mother Family Medical History: Cancer Additional Family Medical History / Comment(s): Mother had colon cancer. Father Family Medical History: Cancer Additional Family Medical History / Comment(s): Father had lung cancer. Medications and Allergies Home Medications Medication Instructions Recorded Confirmed Type Folic Acid 1 mg PO DAILY #30 tab 08/24/18 02/25/19 Rx Pantoprazole Sodium [Protonix] 40 mg PO DAILY #30 tablet. 08/24/18 02/25/19 Rx Ondansetron [Zofran ODT] 4 mg PO Q8HR PRN 08/30/18 02/25/19 History Megestrol [Megace] 400 mg PO DAILY #30 cup 09/01/18 02/25/19 Rx Sennosides [Senna] 8.6 mg PO HS PRN #60 tablet 09/09/18 02/25/19 Rx Magnesium Oxide [Mag-Ox] 400 mg PO TID #90 tab 10/26/18 02/25/19 Rx fentaNYL 12MCG/HR PATCH [Duragesic 1 patch TRANSDERM Q72H #10 patch 10/26/18 02/25/19 Rx 12MCG/HR] oxyCODONE-APAP 10-325MG [Percocet 1 tab PO QID PRN 3 Days #12 tab 10/26/18 02/25/19 Rx 10-325 mg] Atorvastatin [Lipitor] 80 mg PO HS 01/28/19 02/25/19 History Metoprolol Tartrate [Lopressor] 25 mg PO BID 02/03/19 02/25/19 History levETIRAcetam [Keppra] 500 mg PO BID 02/03/19 02/25/19 History Nystatin 100,000 Unit/ml Susp 5 ml PO QID #140 ml 02/15/19 02/25/19 Rx [Mycostatin Oral Susp] predniSONE See Taper PO DAILY 02/25/19 02/25/19 History Allergies Allergy/AdvReac Type Severity Reaction Status Date / Time heparin Allergy Unknown Verified 02/25/19 12:03 Penicillins Allergy Unknown Verified 02/25/19 12:03 Childhood Physical Examination - Vital Signs Vital Signs: Vital Signs Temp Pulse Resp BP Pulse Ox 02/26/19 08:02 87 18 110/60 02/26/19 05:00 98.3 F 82 16 89/63 100 02/25/19 21:31 98.5 F 87 16 95/65 100 Intake and Output 02/26/19 02/26/19 02/26/19 06:59 14:59 22:59 Intake Total 590 Balance 590 Intake: Oral 590 Other: Voiding Method Toilet # Voids 3 3 Weight 63.049 kg On examination patient is a middle aged Afro-[place] female, who is in no distress. She keeps on saying that "I'm going to have a panic attack". Patient has expressive aphasia, not able to express herself. She has significant paraphasic errors. She can name some objects, but not all. She has significant problem with repetition. She has mild dysarthria. On cranial nerve examination, pupils are round and reacting, visual cano reveal some right- sided deficits. Face is symmetric and tongue protrudes the slightly to the left. Muscle strength revealed no pronator drift and the strength is normal in arms and legs. Sensations appears intact although difficult to assess. Tone and bulk of muscles normal. No obvious ataxia. Results Patient's troponin is mildly elevated 0.444. UA is negative. Urine drug screen positive for opiate and benzo. Patient's B12 is normal, 1918 on 02/10/2019, with folate 22.2. Thyroid functions normal. - Laboratory Findings CBC and BMP: 02/26/19 12:32 02/26/19 12:32 Abnormal Lab Findings: Abnormal Labs 02/25/19 02/25/19 02/25/19 11:59 12:15 12:15 WBC 13.9 H RBC 2.71 L Hgb 8.3 L Hct 26.9 L MCHC RDW 19.6 H Plt Count 24 L D Neutrophils # 13.4 H Lymphocytes # 0.3 L PT INR Chloride 108 H Carbon Dioxide 20 L BUN 21 H Glucose 125 H POC Glucose (mg/dL) 126 H Magnesium AST 48 H ALT 112 H Troponin I Total Protein 6.2 L Urine Opiates Screen U Benzodiazepines Scrn 02/25/19 02/25/19 02/25/19 12:15 12:15 12:15 WBC RBC Hgb Hct MCHC RDW Plt Count Neutrophils # Lymphocytes # PT 13.7 H INR 1.3 H Chloride Carbon Dioxide BUN Glucose POC Glucose (mg/dL) Magnesium 2.5 H AST ALT Troponin I 0.444 H* Total Protein Urine Opiates Screen U Benzodiazepines Scrn 02/25/19 02/26/19 02/26/19 14:15 12:32 12:32 WBC 11.7 H RBC 2.43 L Hgb 7.4 L Hct 24.2 L MCHC 30.4 L RDW 19.2 H Plt Count 28 L Neutrophils # 11.2 H Lymphocytes # 0.3 L PT INR Chloride Carbon Dioxide BUN Glucose POC Glucose (mg/dL) Magnesium AST ALT Troponin I 0.289 H* Total Protein Urine Opiates Screen Detected H U Benzodiazepines Scrn Detected H 02/26/19 12:32 WBC RBC Hgb Hct MCHC RDW Plt Count Neutrophils # Lymphocytes # PT INR Chloride 111 H Carbon Dioxide 19 L BUN Glucose 119 H POC Glucose (mg/dL) Magnesium AST ALT Troponin I Total Protein Urine Opiates Screen U Benzodiazepines Scrn Assessment and Plan Assessment: * 53-year-old female with history of metastatic lung cancer, admitted with an episode of transient visual loss, with subsequent expressive aphasia. Rule out subacute CVA. Rule out cerebral metastasis. Rule out meningeal carcinomatosis. * History of subarachnoid hemorrhage due to thrombocytopenia on 01/28/2019. Plan: * MRI of the brain with and without contrast to evaluate for subacute CVA versus metastatic lesion versus other processes. * EEG to evaluate for epileptiform activity. Patient currently is on Keppra started empirically after her recent admission for subarachnoid hemorrhage. Never had any history of seizures. * Would hold off on antiplatelet medication because of significant thrombocytopenia, and risk of recurrence of subarachnoid hemorrhage. * Oncology following for thrombocytopenia, and metastatic lung cancer. * We will check fasting lipid panel, and hemoglobin A1c. * Discussed with patient's daughter in detail.
--- NOTE | 2019-02-26 19:01 | ECHOF ---
Referral Reason: MEASUREMENTS -------- HEIGHT: 160.0 cm WEIGHT: 63.0 kg BP: RVIDd: 1.9 cm (< 3.3) IVSd: 1.4 cm (0.6 - 1.1) LVIDd: 3.6 cm (3.9 - 5.3) LVPWd: 1.5 cm (0.6 - 1.1) IVSs: 1.8 cm LVIDs: 2.3 cm LVPWs: 1.8 cm LAESV Index (A-L): 23.14 ml/m Ao Diam: 3.3 cm (2.0 - 3.7) AV Cusp: 1.8 cm (1.5 - 2.6) LA Diam: 3.8 cm (2.7 - 3.8) MV EXCURSION: 12.495 mm (> 18.000) MV EF SLOPE: 59 mm/s (70 - 150) EPSS: 0.6 cm MV E Jony: 1.04 m/s MV DecT: 236 ms MV A Jony: 0.98 m/s MV E/A Ratio: 1.06 RAP: 5.00 mmHg RVSP: 47.14 mmHg TAPSE: 26.03 mm FINDINGS -------- Sinus rhythm. This was a technically good study. The left ventricular size is normal. There is moderate concentric left ventricular hypertrophy. O verall left ventricular systolic function is normal with, an EF between 55 - 60 %. Normal LAP Grade 1 Diastolic Dysfunction. The right ventricle is normal in size. The right ventricular systolic function is normal. The left atrial size is normal. Normal LA size by volume 22+/-6 ml/m2. The right atrial size is normal. Aortic valve is trileaflet and is mildly thickened. The mitral valve leaflets are mildly thickened. Severe mitral regurgitation is present. Moderate, non-mobile vegetation attached to the anterior mitral valve leaflet. Severe tricuspid regurgitation present. Small, non-mobile vegetation attached to the anterior tricu spid valve leaflet. There is no pulmonic regurgitation present. The aortic root size is normal. Normal inferior vena cava with normal inspiratory collapse consistent with estimated right atrial pre ssure of 5 mmHg. There is no pericardial effusion. CONCLUSIONS -------- 1. Sinus rhythm. 2. This was a technically good study. 3. The left ventricular size is normal. 4. There is moderate concentric left ventricular hypertrophy. 5. Overall left ventricular systolic function is normal with, an EF between 55 - 60 %. 6. Normal LAP Grade 1 Diastolic Dysfunction. 7. The right ventricle is normal in size. 8. The right ventricular systolic function is normal. 9. The left atrial size is normal. 10. Normal LA size by volume 22+/-6 ml/m2. 11. The right atrial size is normal. 12. Aortic valve is trileaflet and is mildly thickened. 13. The mitral valve leaflets are mildly thickened. 14. Severe mitral regurgitation is present. 15. Moderate, non-mobile vegetation attached to the anterior mitral valve leaflet. 16. Severe tricuspid regurgitation present. 17. Small, non-mobile vegetation attached to the anterior tricuspid valve leaflet. 18. There is no pulmonic regurgitation present. 19. The aortic root size is normal. 20. Normal inferior vena cava with normal inspiratory collapse consistent with estimated right atrial pressure of 5 mmHg. 21. There is no pericardial effusion. JOINER APPRENTICE: Catina Hidalgo RDCS
[2019-02-26] MEDS ORDERED: SODIUM CHLORIDE 0.9% 500 ML 500 ML IV ONE (20:57)
[2019-02-26] MEDS: ATORVASTATIN 80 MG TAB PO SCH (21:03)
--- NOTE | 2019-02-26 23:01 | P.HPIM ---
History of Present Illness H&P Date: 02/26/19 Chief Complaint: Altered mental status Patient is a 53-year-old female with a known history of metastatic lung cancer currently undergoing chemotherapy(on cancer was in the diagnosed in 2016 status post lumpectomy and radiation, recurrence in 2018) subarachnoid hemorrhage re cently and was transferred to [facility], history of PE currently not on anticoagulation due to SAH, history of CVA/TIA, GERD, hypertension, hyperlipidemia and history of brain aneurysm, history of IVC filter placement and recent frequent multiple admissions came to ER with complaints of confusion when she woke up in the morning.Last night the patient did not appear confused according to the daughter. Patient is able to speak clearly but does not make any sense and does not answer questions accurately. According to the daughter she had chemo on Monday. Patient is also complaining of any headache there's been no fever there's been no complaints of chest pain or difficulty breathing the patient had no vomiting or diarrhea. Patient has not complained of any abdominal pain. Patient is awake alert and oriented 2. Unable to give full history. CT head showed no acute cardiopulmonary process. Previous echocardiogram August 2018 showed normal EF. Patient was found have slightly elevated troponin level. Review of Systems Constitutional: Patient denies any fever or chills . No generalized weakness or weight loss. Abdomen: Patient denied nausea vomiting and diarrhea and abdominal pain. Cardiovascular: Patient denies any chest pain or short of breath no palpitations. Respiratory: patient denied any cough is from production. No shortness of breath Neurologic: Patient denied any numbness or tingling . Patient does have he adache and unable to speak out. Complete review of systems could not be obtained from the patient. 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 Last Myocardial Infarction Date:: 04/30/2013 History of Any Multi-Drug Resistant Organisms: None Reported Past Surgical History: Heart Catheterization, Orthopedic Surgery, Tubal Ligation, Uterine Ablation Additional Past Surgical History / Comment(s): Bronchoscopies/bx, right lower lobe resection for lung cancer, IVC filter, stenting of a brain aneurysm, R carpal tunnel release, laparoscopy and liver biopsy, paracentesis x2, surgery to remove benign pelvic mass, D&C. Past Anesthesia/Blood Transfusion Reactions: No Reported Reaction Smoking Status: Current every day smoker - Past Family History Mother Family Medical History: Cancer Additional Family Medical History / Comment(s): Mother had colon cancer. Father Family Medical History: Cancer Additional Family Medical History / Comment(s): Father had lung cancer. Medications and Allergies Home Medications Medication Instructions Recorded Confirmed Type Folic Acid 1 mg PO DAILY #30 tab 08/24/18 02/25/19 Rx Pantoprazole Sodium [Protonix] 40 mg PO DAILY #30 tablet. 08/24/18 02/25/19 Rx Ondansetron [Zofran ODT] 4 mg PO Q8HR PRN 08/30/18 02/25/19 History Megestrol [Megace] 400 mg PO DAILY #30 cup 09/01/18 02/25/19 Rx Sennosides [Senna] 8.6 mg PO HS PRN #60 tablet 09/09/18 02/25/19 Rx Magnesium Oxide [Mag-Ox] 400 mg PO TID #90 tab 10/26/18 02/25/19 Rx fentaNYL 12MCG/HR PATCH [Duragesic 1 patch TRANSDERM Q72H #10 patch 10/26/18 02/25/19 Rx 12MCG/HR] oxyCODONE-APAP 10-325MG [Percocet 1 tab PO QID PRN 3 Days #12 tab 10/26/18 02/25/19 Rx 10-325 mg] Atorvastatin [Lipitor] 80 mg PO HS 01/28/19 02/25/19 History Metoprolol Tartrate [Lopressor] 25 mg PO BID 02/03/19 02/25/19 History levETIRAcetam [Keppra] 500 mg PO BID 02/03/19 02/25/19 History Nystatin 100,000 Unit/ml Susp 5 ml PO QID #140 ml 02/15/19 02/25/19 Rx [Mycostatin Oral Susp] predniSONE See Taper PO DAILY 02/25/19 02/25/19 History Allergies Allergy/AdvReac Type Severity Reaction Status Date / Time heparin Allergy Unknown Verified 02/25/19 12:03 Penicillins Allergy Unknown Verified 02/25/19 12:03 Childhood Physical Exam Vitals: Vital Signs Temp Pulse Pulse Resp BP BP Pulse Ox 02/26/19 08:02 87 18 110/60 02/26/19 05:00 98.3 F 82 16 89/63 100 02/25/19 21:31 98.5 F 87 16 95/65 100 02/25/19 16:15 98.6 F 89 17 107/69 100 02/25/19 15:34 99.7 F H 105 H 20 138/80 100 02/25/19 15:20 79 11 L 95/52 02/25/19 15:10 79 10 L 95/52 02/25/19 15:00 79 25 H 98/48 02/25/19 14:50 80 10 L 98/48 02/25/19 14:40 80 0 L 98/48 02/25/19 14:30 80 7 L 87/74 02/25/19 14:20 79 8 L 87/74 02/25/19 14:10 78 11 L 87/74 02/25/19 14:00 82 14 02/25/19 13:50 80 15 02/25/19 13:40 92 20 02/25/19 13:30 97/59 02/25/19 13:20 76 11 L 97/59 02/25/19 13:10 73 7 L 97/59 02/25/19 13:00 77 12 107/76 02/25/19 12:50 77 9 L 107/76 02/25/19 12:45 98.6 F 77 16 107/76 100 02/25/19 12:40 98.7 F 76 16 97/57 100 02/25/19 12:20 79 16 100 02/25/19 12:10 79 16 100 02/25/19 12:00 78 16 107/48 100 02/25/19 11:52 16 107/48 100 Intake and Output 02/25/19 02/26/19 02/26/19 22:59 06:59 14:59 Intake Total 350 590 Balance 350 590 Intake: Intake, IV Titration 350 Amount Sodium Chloride 0.9% 1, 350 000 ml @ 100 mls/hr IV . Q10H ONE Rx#:[id number] Oral 590 Other: Voiding Method Toilet # Voids 1 3 PHYSICAL EXAMINATION: Patient is lying in the bed comfortably, no acute distress, awake alert and oriented x2.. HEENT: Normocephalic. Neck is supple. Pupils reactive. Nostrils clear. Oral cavity is moist. Ears reveal no drainage. Neck reveals no JVD, carotid bruits, or thyromegaly. CHEST EXAMINATION: Trachea is central. Symmetrical expansion. Lung cano clear to auscultation and percussion. CARDIAC: Normal S1, S2 with no gallops. No murmurs ABDOMEN: Soft. Bowel sounds normal. No organomegaly. No abdominal bruits. Extremities: reveal no edema. No clubbing or cyanosis Neurologically awake, alert, oriented x2 . Able to move all her extremities. Patient does have pressured speech and expressive aphasia. Skin: No rash or skin lesions. Psychiatric: Coperative. Musculoskeletal: No joint swelling or deformity. Normal range of motion. Results CBC & Chem 7: 02/26/19 12:32 02/26/19 12:32 Labs: Abnormal Lab Results - Last 24 Hours (Table) 02/25/19 02/25/19 02/25/19 Range/Units 11:59 12:15 12:15 WBC 13.9 H (3.8-10.6) k/uL RBC 2.71 L (3.80-5.40) m/uL Hgb 8.3 L (11.4-16.0) gm/dL Hct 26.9 L (34.0-46.0) % RDW 19.6 H (11.5-15.5) % Plt Count 24 L D (150-450) k/uL Neutrophils # 13.4 H (1.3-7.7) k/uL Lymphocytes # 0.3 L (1.0-4.8) k/uL PT (9.0-12.0) sec INR (<1.2) Chloride 108 H (98-107) mmol/L Carbon Dioxide 20 L (22-30) mmol/L BUN 21 H (7-17) mg/dL Glucose 125 H (74-99) mg/dL POC Glucose (mg/dL) 126 H (75-99) mg/dL Magnesium (1.6-2.3) mg/dL AST 48 H (14-36) U/L ALT 112 H (9-52) U/L Troponin I (0.000-0.034) ng/mL Total Protein 6.2 L (6.3-8.2) g/dL Urine Opiates Screen (NotDetected) U Benzodiazepines Scrn (NotDetected) 02/25/19 02/25/19 02/25/19 Range/Units 12:15 12:15 12:15 WBC (3.8-10.6) k/uL RBC (3.80-5.40) m/uL Hgb (11.4-16.0) gm/dL Hct (34.0-46.0) % RDW (11.5-15.5) % Plt Count (150-450) k/uL Neutrophils # (1.3-7.7) k/uL Lymphocytes # (1.0-4.8) k/uL PT 13.7 H (9.0-12.0) sec INR 1.3 H (<1.2) Chloride (98-107) mmol/L Carbon Dioxide (22-30) mmol/L BUN (7-17) mg/dL Glucose (74-99) mg/dL POC Glucose (mg/dL) (75-99) mg/dL Magnesium 2.5 H (1.6-2.3) mg/dL AST (14-36) U/L ALT (9-52) U/L Troponin I 0.444 H* (0.000-0.034) ng/mL Total Protein (6.3-8.2) g/dL Urine Opiates Screen (NotDetected) U Benzodiazepines Scrn (NotDetected) 02/25/19 Range/Units 14:15 WBC (3.8-10.6) k/uL RBC (3.80-5.40) m/uL Hgb (11.4-16.0) gm/dL Hct (34.0-46.0) % RDW (11.5-15.5) % Plt Count (150-450) k/uL Neutrophils # (1.3-7.7) k/uL Lymphocytes # (1.0-4.8) k/uL PT (9.0-12.0) sec INR (<1.2) Chloride (98-107) mmol/L Carbon Dioxide (22-30) mmol/L BUN (7-17) mg/dL Glucose (74-99) mg/dL POC Glucose (mg/dL) (75-99) mg/dL Magnesium (1.6-2.3) mg/dL AST (14-36) U/L ALT (9-52) U/L Troponin I (0.000-0.034) ng/mL Total Protein (6.3-8.2) g/dL Urine Opiates Screen Detected H (NotDetected) U Benzodiazepines Scrn Detected H (NotDetected) Thrombosis Risk Factor Assmnt - DVT/VTE Prophylaxis DVT/VTE Prophylaxis: Mechanical Prophylaxis ordered - Choose All That Apply Any of the Below Risk Factors Present?: Yes Each Factor Represents 1 point: Abnormal pulmonary function (COPD) Other Risk Factors: Yes Each Risk Factor Represents 2 Points: Malignancy Other congenital or acquired thrombophilia - If yes, enter type in comment: No Thrombosis Risk Factor Assessment Total Risk Factor Score: 3 Thrombosis Risk Factor Assessment Level: Moderate Risk Assessment and Plan Assessment: Dysarthria and expressive aphasia. Rule out acute/subacute CVA. CT head negative Acute on chronic metabolic encephalopathy Mildly elevated troponin level. Likely due to demand mismatch along with severe anemia Anemia and thrombocytopenia likely chemo related Metastatic lung cancer currently undergoing chemotherapy Recent history of subarachnoid hemorrhage in January 2019. Currently not on any anticoagulation or antiplatelet medication Hypertension, Hyperlipidemia History of PE COPD DVT prophylaxis with SCDs Plan: Patient be converted on supportive management. Continue the pain management and follow up closely. Monitor CBC daily. Oncology is following. 2-D echocardiogram was ordered as per cardiology. Will consult neurology for further radiation of expressive aphasia. Further recommendations based on the critical course. Prognosis guarded at this time. Time with Patient: Greater than 30
[2019-02-27] MEDS ORDERED: SODIUM CHLORIDE 0.9% 500 ML BAG ONE (03:30)
[2019-02-27 08:38] LABS: Cholesterol 107 mg/dL (<200); HDL Cholesterol 30 mg/dL (40-60); LDL Cholesterol,Calculated 47 mg/dL (0-99); Triglycerides 149 mg/dL (<150)
[2019-02-27] MEDS: MEGESTROL 400 MG/10 ML CUP PO SCH (09:30)
[2019-02-27] MEDS: FOLIC ACID 1 MG TAB PO SCH (09:30)
[2019-02-27] MEDS: levETIRAcetam 500 MG TAB PO SCH ×2 (09:30→21:41)
[2019-02-27] MEDS: PANTOPRAZOLE 40 MG TABLET PO SCH (09:30)
[2019-02-27] MEDS: METOPROLOL TARTRATE 25 MG TAB PO SCH ×2 (09:30→21:39)
[2019-02-27] MEDS: predniSONE 20 MG TAB PO SCH (09:31)
[2019-02-27] MEDS: oxyCODONE-APAP 10-325MG 1 EACH TAB PO PRN ×2 (09:31→14:48)
--- NOTE | 2019-02-27 09:52 | P.PN ---
Subjective This is a pleasant 53-year-old -[place] female past medical history significant for metastatic lung cancer status post radiation, chemotherapy and lumpectomy. She also has a history of PE, hypertension, dyslipidemia, subarachnoid hemorrhage and nicotine dependence. Per the daughter, she was initially diagnosed with lung cancer in 2016 and underwent lobectomy. Then in 2018 she was found to have throat cancer and reoccurrence in lung with metastasis to the liver. She is currently onchemotherapy. 01/28/2019 she was found to have a subarachnoid hemorrhage and was transferred to [facility] for further evaluation. We have asked to see her in consultation secondary to elevated troponin. The patient presented to the hospital with symptoms of altered mental status per the daughter. She underwent a round of chemotherapy on Monday. She denies symptoms of chest discomfort, shortness of breath, dizziness, palpitations, nausea, vomiting or diaphoresis. She is seen and examined resting comfortably in bed in no acute distress laying flat. EKG reveals sinus mechanism, LVH and T-wave inversions in the inferior leads. Laboratory data reviewed, WBC on admission 13.9 repeat today 11.7, hemoglobin 7.4, platelets 28, sodium 137, potassium 4.5, creatinine 0.86, troponin 0.444, 0.289. Currently maintained on Lopressor 25 mg twice a day and atorvastatin 80 mg daily. Most recent limited echocardiogram obtained October 2018 also in the setting of elevated troponin reveals normal LV size and function with ejection fraction 55-60% with no wall motion abnormalities. 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 Brain CT is negative for acute intracranial process. There is no suspicious underlying metastatic lesions. Daughter is at the bedside and provides much of the prior history. 02/27/2019 Patient was seen and examined lying flat in bed in no acute distress. She is much more conversational today however there is some transient confusion. She denies symptoms of chest discomfort, shortness of breath, dizziness or palpitations. Blood pressure 92/70 with a heart rate of 101 afebrile maintaining oxygen saturation on room air. Echocardiogram obtained reveals preserved LV systolic function with ejection fraction 55-60%, grade 1 diastolic dysfunction, moderate non-mobile vegetation attached the anterior mitral valve leaflet, small non-mobile vegetation attached to the anterior tricuspid valve, severe tricuspid regurgitation, severe mitral regurgitation. GENERAL: This is a 53-year-old -[place] female in no apparent distress at the time of my examination. HEENT: Head is atraumatic, normocephalic. Pupils are equal, round. Sclerae ani cteric. Conjunctivae are clear. Mucous membranes of the mouth are moist. Neck is supple. There is no jugular venous distention. No carotid bruit is heard. LUNGS: Clear to auscultation no wheezes, rales or rhonchi. No chest wall tenderness is noted on palpation or with deep breathing. HEART: Regular rate and rhythm without murmurs, rubs or gallops. S1 and S2 heard. EXTREMITIES: No evidence of peripheral edema and no calf tenderness noted. ASSESSMENT Altered mental status Vegetation noted on the mitral and tricuspid valve with severe thickening. Could be related to a vegetation versus metastatic mass. Elevated troponin, unclear significance. Likely related to oxygen supplied mismatch in the setting of anemia. Anemia Thrombocytopenia Leukocytosis Recurrent small cell lung cancer with mets History of subarrachnoid hemorrhage Hypertension Dyslipidemia History of PE Chronic nicotine dependence PLAN Vegetation noted on the mitral and tricuspid valve with severe thickening. Could be related to a vegetation versus metastatic mass. Check blood cultures x2 and consult infectious disease. If blood cultures are abnormal we will consider HENOK, although the vegetations/masses are seen quite clearly on TTE. A HENOK will not necessarily change the course of treatment. Further recommendations to follow based upon clinical course. Nurse Practitioner note has been reviewed, I agree with a documented findings and plan of care. Patient was seen and examined. Objective - Vital Signs Vital signs: Vital Signs Temp 98.8 F 02/27/19 08:03 Pulse 101 H 02/27/19 08:03 Resp 15 02/27/19 08:03 BP 92/70 02/27/19 08:03 Pulse Ox 100 02/27/19 08:03 Intake & Output 02/26/19 02/27/19 02/27/19 18:59 06:59 18:59 Intake Total 800 Balance 800 Weight 63.049 kg Intake: Intake, IV Titration 800 Amount Sodium Chloride 0.9% 1, 800 000 ml @ 100 mls/hr IV . Q10H ONE Rx#:[id number] Other: # Voids 3 1 1 # Bowel Movements 0 - Labs CBC & Chem 7: 02/26/19 12:32 02/26/19 12:32 Labs: Abnormal Lab Results - Last 24 Hours (Table) 02/26/19 02/26/19 02/26/19 Range/Units 12:32 12:32 12:32 WBC 11.7 H (3.8-10.6) k/uL RBC 2.43 L (3.80-5.40) m/uL Hgb 7.4 L (11.4-16.0) gm/dL Hct 24.2 L (34.0-46.0) % MCHC 30.4 L (31.0-37.0) g/dL RDW 19.2 H (11.5-15.5) % Plt Count 28 L (150-450) k/uL Neutrophils # 11.2 H (1.3-7.7) k/uL Lymphocytes # 0.3 L (1.0-4.8) k/uL Chloride 111 H (98-107) mmol/L Carbon Dioxide 19 L (22-30) mmol/L Glucose 119 H (74-99) mg/dL Troponin I 0.289 H* (0.000-0.034) ng/mL HDL Cholesterol (40-60) mg/dL 02/27/19 Range/Units 07:55 WBC (3.8-10.6) k/uL RBC (3.80-5.40) m/uL Hgb (11.4-16.0) gm/dL Hct (34.0-46.0) % MCHC (31.0-37.0) g/dL RDW (11.5-15.5) % Plt Count (150-450) k/uL Neutrophils # (1.3-7.7) k/uL Lymphocytes # (1.0-4.8) k/uL Chloride (98-107) mmol/L Carbon Dioxide (22-30) mmol/L Glucose (74-99) mg/dL Troponin I (0.000-0.034) ng/mL HDL Cholesterol 30 L (40-60) mg/dL
--- NOTE | 2019-02-27 10:33 | P.CONS ---
History of Present Illness - Reason for Consult Consult date: 02/27/19 Vegetation on mitral and tricuspid valves - History of Present Illness This is a pleasant 53-year-old -[place] female diagnosed with adenocarcinoma in July 2015 status post surgical intervention and she was advised for chemotherapy but had poor follow-up. 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 At that time she was advised that cancer was not curable and treatment would be to prolong life and palliation of symptoms. There was also concern at that time for ovarian mass. She was also found to have a pulmonary embolism and started on eliquis. In July of this year patient was hospitalized was found to have a pelvic mass, liver lesions and omentum masses with recurrent adenocarcinoma of the lung on cytology and liver biopsy. At that time she was also found to have pulmonary embolism but was admitted with vaginal bleeding. 01/28/2019 she was found to have a subarachnoid hemorrhage and was transferred to [facility] for further evaluation. The patient presented to the hospital with symptoms of altered mental status. She underwent a round of chemotherapy on Monday. She denies symptoms of chest discomfort, shortness of breath, cough, sputum production, dizziness, nausea, vomiting or diarrhea. She does admit to decreased appetite. She denies any fever or chills. At the time of this evaluation, patient feels her mental status is improved. Patient was admitted [facility] floor and is been seen in consultation by cardiology. Echocardiogram revealed egetation to the mitral valve and tricuspid valve and thus this ID consult was requested. Echocardiogram also revealed severe mitral regurgitation, severe tricuspid regurgitation, EF 55-60%. WBC 13.9 repeat 11.7, hemoglobin 7.4, platelets 28, sodium 137, potassium 4.5, creatinine 0.86, troponin 0.444, 0.289. Urinalysis negative for infection. Urine drug screen positive for opiates and benzod iazepines. 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 Brain CT is negative for acute intracranial process. There is no suspicious underlying metastatic lesions. Patient relates that she is unsteady with ambulation. Review of Systems Constitutional: Reports anorexia, Reports fatigue, Reports poor appetite, Reports weakness, Denies chills, Denies fever Eyes: denies blurred vision, denies pain Ears, nose, mouth and throat: Denies dental pain, Denies dysphagia, Denies headache, Denies nasal congestion, Denies nasal discharge, Denies vertigo Cardiovascular: Denies chest pain, Denies decreased exercise tolerance, Denies dyspnea on exertion, Denies edema, Denies lightheadedness, Denies palpitations, Denies shortness of breath, Denies syncope Respiratory: Denies cough, Denies cough with sputum, Denies dyspnea, Denies excessive sputum, Denies hemoptysis, Denies home oxygen, Denies wheezing Gastrointestinal: Reports loss of appetite, Denies abdominal pain, Denies diarrhea, Denies nausea, Denies vomiting Genitourinary: Denies dysuria, Denies hematuria, Denies urgency, Denies urinary frequency Musculoskeletal: Reports gait dysfunction, Reports muscle weakness, Denies frequent falls, Denies myalgias Integumentary: Denies pruritus, Denies rash, Denies wounds Neurological: Reports change in mentation, Denies numbness, Denies weakness Psychiatric: Denies anxiety, Denies depression Endocrine: Denies fatigue, Denies weight change Past Medical History Past Medical History: Coronary Artery Disease (CAD), Cancer, COPD, CVA/TIA, GERD/Reflux, Hyperlipidemia, Hypertension, Myocardial Infarction (OK), Pulmonary Embolus (PE), Vascular Disorder Additional Past Medical History / Comment(s): Stage IV metastatic R lung cancer, mets to liver/pelvic masses and recurrent to R lung, initially diagnosed back in 2016-pt currently receiving chemotherapy-last time 02/22/19, laryngeal cancer 2018 postradiation therapy, recent small subarachnoid bleeding on 01/28/2019 withno intervention required, chronic thrombocytopenia, anemia, 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 Last Myocardial Infarction Date:: 04/30/2013 History of Any Multi-Drug Resistant Organisms: None Reported Past Surgical History: Heart Catheterization, Orthopedic Surgery, Tubal Ligation , Uterine Ablation Additional Past Surgical History / Comment(s): Bronchoscopies/bx, right lower lobe resection for lung cancer, IVC filter, stenting of a brain aneurysm, R c arpal tunnel release, laparoscopy and liver biopsy, paracentesis x2, surgery to remove benign pelvic mass, D&C. Past Anesthesia/Blood Transfusion Reactions: No Reported Reaction Smoking Status: Current every day smoker Additional Past Alcohol Use History / Comment(s): Patient was a smoker and quit in April 2018. She denies any marijuana, illicit drug use or alcohol use. Her daughter is living with her. She is on disability. Patient lives with her daughter and has caregivers 5 days per week and hours a day. - Past Family History Mother Family Medical History: Cancer Additional Family Medical History / Comment(s): Mother had colon cancer. Father Family Medical History: Cancer Additional Family Medical History / Comment(s): Father had lung cancer. Medications and Allergies Home Medications Medication Instructions Recorded Confirmed Type Folic Acid 1 mg PO DAILY #30 tab 08/24/18 02/25/19 Rx Pantoprazole Sodium [Protonix] 40 mg PO DAILY #30 tablet. 08/24/18 02/25/19 Rx Ondansetron [Zofran ODT] 4 mg PO Q8HR PRN 08/30/18 02/25/19 History Megestrol [Megace] 400 mg PO DAILY #30 cup 09/01/18 02/25/19 Rx Sennosides [Senna] 8.6 mg PO HS PRN #60 tablet 09/09/18 02/25/19 Rx Magnesium Oxide [Mag-Ox] 400 mg PO TID #90 tab 10/26/18 02/25/19 Rx fentaNYL 12MCG/HR PATCH [Duragesic 1 patch TRANSDERM Q72H #10 patch 10/26/18 02/25/19 Rx 12MCG/HR] oxyCODONE-APAP 10-325MG [Percocet 1 tab PO QID PRN 3 Days #12 tab 10/26/18 02/25/19 Rx 10-325 mg] Atorvastatin [Lipitor] 80 mg PO HS 01/28/19 02/25/19 History Metoprolol Tartrate [Lopressor] 25 mg PO BID 02/03/19 02/25/19 History levETIRAcetam [Keppra] 500 mg PO BID 02/03/19 02/25/19 History Nystatin 100,000 Unit/ml Susp 5 ml PO QID #140 ml 02/15/19 02/25/19 Rx [Mycostatin Oral Susp] predniSONE See Taper PO DAILY 02/25/19 02/25/19 History Allergies Allergy/AdvReac Type Severity Reaction Status Date / Time heparin Allergy Unknown Verified 02/25/19 12:03 Penicillins Allergy Unknown Verified 02/25/19 12:03 Childhood Physical Exam Vitals: Vital Signs Temp Pulse Resp BP Pulse Ox 02/27/19 08:03 98.8 F 101 H 15 92/70 100 02/26/19 21:00 98.5 F 86 16 88/50 100 02/26/19 13:00 98.5 F 76 16 90/59 99 Intake and Output 02/26/19 02/27/19 02/27/19 22:59 06:59 14:59 Intake Total 800 Balance 800 Intake: Intake, IV Titration 800 Amount Sodium Chloride 0.9% 1, 800 000 ml @ 100 mls/hr IV . Q10H ONE Rx#:[id number] Other: # Voids 1 1 # Bowel Movements 0 Gen: This is a 53-year-old -[place] female. She is resting in bed and appears to be comfortable and in no acute distress. HEENT: Head is atraumatic, normocephalic. Pupils equal, round. Sclerae is anicteric. Oral mucous membranes are moist. No erythema or edema of the oropharynx. NECK: Supple. No JVD. No lymphadenopathy. No thyromegaly. LUNGS: Clear to auscultation. No wheezes or rhonchi. No intercostal retractions. HEART: Regular rate and rhythm. No murmur. ABDOMEN: Soft. Bowel sounds are present. No masses. Positive ascites. Generalized tenderness. EXTREMITIES: No pedal edema. No calf tenderness. Dorsalis pedis +2 bilaterally. NEUROLOGICAL: Patient is awake, alert and oriented x3. Cranial nerves 2 through 12 are grossly intact. Results Results: Laboratory Results WBC 11.7 k/uL (3.8-10.6) H 02/26/19 12:32 RBC 2.43 m/uL (3.80-5.40) L 02/26/19 12:32 Hgb 7.4 gm/dL (11.4-16.0) L 02/26/19 12:32 Hct 24.2 % (34.0-46.0) L 02/26/19 12:32 MCV 99.6 fL (80.0-100.0) 02/26/19 12:32 MCH 30.3 pg (25.0-35.0) 02/26/19 12:32 MCHC 30.4 g/dL (31.0-37.0) L 02/26/19 12:32 RDW 19.2 % (11.5-15.5) H 02/26/19 12:32 Plt Count 28 k/uL (150-450) L 02/26/19 12:32 Neutrophils % 95 % 02/26/19 12:32 Lymphocytes % 3 % 02/26/19 12:32 Monocytes % 1 % 02/26/19 12:32 Eosinophils % 1 % 02/26/19 12:32 Basophils % 0 % 02/26/19 12:32 Neutrophils # 11.2 k/uL (1.3-7.7) H 02/26/19 12:32 Lymphocytes # 0.3 k/uL (1.0-4.8) L 02/26/19 12:32 Monocytes # 0.1 k/uL (0-1.0) 02/26/19 12:32 Eosinophils # 0.1 k/uL (0-0.7) 02/26/19 12:32 Basophils # 0.0 k/uL (0-0.2) 02/26/19 12:32 Manual Slide Review Performed 02/26/19 12:32 Large Platelets Present 02/26/19 12:32 Hypochromasia Marked 02/26/19 12:32 Poikilocytosis Slight 02/25/19 12:15 Poikilocytosis (manual Present 02/26/19 12:32 Anisocytosis Slight 02/26/19 12:32 Macrocytosis Moderate 02/26/19 12:32 Fragmented RBCs Present 02/25/19 12:15 PT 13.7 sec (9.0-12.0) H 02/25/19 12:15 INR 1.3 (<1.2) H 02/25/19 12:15 APTT 28.8 sec (22.0-30.0) 02/25/19 12:15 Sodium 137 mmol/L (137-145) 02/26/19 12:32 Potassium 4.5 mmol/L (3.5-5.1) 02/26/19 12:32 Chloride 111 mmol/L (98-107) H 02/26/19 12:32 Carbon Dioxide 19 mmol/L (22-30) L 02/26/19 12:32 Anion Gap 7 mmol/L 02/26/19 12:32 BUN 17 mg/dL (7-17) 02/26/19 12:32 Creatinine 0.86 mg/dL (0.52-1.04) 02/26/19 12:32 Est GFR (CKD-EPI)AfAm >90 (>60 ml/min/1.73 sqM) 02/26/19 12:32 Est GFR (CKD-EPI)NonAf 79 (>60 ml/min/1.73 sqM) 02/26/19 12:32 Glucose 119 mg/dL (74-99) H 02/26/19 12:32 POC Glucose (mg/dL) 126 mg/dL (75-99) H 02/25/19 11:59 POC Glu Wharf Helper ID Tevin Seaman 02/25/19 11:59 Plasma Lactic Acid [place] 1.3 mmol/L (0.7-2.0) 02/25/19 12:15 Calcium 8.5 mg/dL (8.4-10.2) 02/26/19 12:32 Magnesium 2.5 mg/dL (1.6-2.3) H 02/25/19 12:15 Total Bilirubin 0.6 mg/dL (0.2-1.3) 02/25/19 12:15 AST 48 U/L (14-36) H 02/25/19 12:15 ALT 112 U/L (9-52) H 02/25/19 12:15 Alkaline Phosphatase 91 U/L (38-126) 02/25/19 12:15 Troponin I 0.289 ng/mL (0.000-0.034) H* 02/26/19 12:32 Total Protein 6.2 g/dL (6.3-8.2) L 02/25/19 12:15 Albumin 3.5 g/dL (3.5-5.0) 02/25/19 12:15 Triglycerides 149 mg/dL (<150) 02/27/19 07:55 Cholesterol 107 mg/dL (<200) 02/27/19 07:55 LDL Cholesterol, Calc 47 mg/dL (0-99) 02/27/19 07:55 HDL Cholesterol 30 mg/dL (40-60) L 02/27/19 07:55 Folate >24.0 ng/mL 02/26/19 12:15 Urine Color Light Yellow 02/25/19 14:15 Urine Appearance Clear (Clear) 02/25/19 14:15 Urine pH 6.5 (5.0-8.0) 02/25/19 14:15 Ur Specific [place] 1.011 (1.001-1.035) 02/25/19 14:15 Urine Protein Negative (Negative) 02/25/19 14:15 Urine Glucose (UA) Negative (Negative) 02/25/19 14:15 Urine Ketones Negative (Negative) 02/25/19 14:15 Urine Blood Negative (Negative) 02/25/19 14:15 Urine Nitrite Negative (Negative) 02/25/19 14:15 Urine Bilirubin Negative (Negative) 02/25/19 14:15 Urine Urobilinogen <2.0 mg/dL (<2.0) 02/25/19 14:15 Ur Leukocyte Esterase Negative (Negative) 02/25/19 14:15 Urine Opiates Screen Detected (NotDetected) H 02/25/19 14:15 Ur Oxycodone Screen Not Detected (NotDetected) 02/25/19 14:15 Urine Methadone Screen Not Detected (NotDetected) 02/25/19 14:15 Ur Propoxyphene Screen Not Detected (NotDetected) 02/25/19 14:15 Ur Barbiturates Screen Not Detected (NotDetected) 02/25/19 14:15 U Tricyclic Antidepress Not Detected (NotDetected) 02/25/19 14:15 Ur Phencyclidine Scrn Not Detected (NotDetected) 02/25/19 14:15 Ur Amphetamines Screen Not Detected (NotDetected) 02/25/19 14:15 U Methamphetamines Scrn Not Detected (NotDetected) 02/25/19 14:15 U Benzodiazepines Scrn Detected (NotDetected) H 02/25/19 14:15 Urine Cocaine Screen Not Detected (NotDetected) 02/25/19 14:15 U Marijuana (THC) Screen Not Detected (NotDetected) 02/25/19 14:15 CBC & Chem 7: 02/26/19 12:32 02/26/19 12:32 Labs: Abnormal Lab Results - Last 24 Hours (Table) 02/26/19 02/26/19 02/26/19 Range/Units 12:32 12:32 12:32 WBC 11.7 H (3.8-10.6) k/uL RBC 2.43 L (3.80-5.40) m/uL Hgb 7.4 L (11.4-16.0) gm/dL Hct 24.2 L (34.0-46.0) % MCHC 30.4 L (31.0-37.0) g/dL RDW 19.2 H (11.5-15.5) % Plt Count 28 L (150-450) k/uL Neutrophils # 11.2 H (1.3-7.7) k/uL Lymphocytes # 0.3 L (1.0-4.8) k/uL Chloride 111 H (98-107) mmol/L Carbon Dioxide 19 L (22-30) mmol/L Glucose 119 H (74-99) mg/dL Troponin I 0.289 H* (0.000-0.034) ng/mL HDL Cholesterol (40-60) mg/dL 02/27/19 Range/Units 07:55 WBC (3.8-10.6) k/uL RBC (3.80-5.40) m/uL Hgb (11.4-16.0) gm/dL Hct (34.0-46.0) % MCHC (31.0-37.0) g/dL RDW (11.5-15.5) % Plt Count (150-450) k/uL Neutrophils # (1.3-7.7) k/uL Lymphocytes # (1.0-4.8) k/uL Chloride (98-107) mmol/L Carbon Dioxide (22-30) mmol/L Glucose (74-99) mg/dL Troponin I (0.000-0.034) ng/mL HDL Cholesterol 30 L (40-60) mg/dL Assessment and Plan Plan: This is a 53-year-old woman presents to hospital with altered mental status with concerns for new CVA versus prostatic disease to the brain with underlying history of metastatic lung cancer. Echocardiogram reveals mitral and tricuspid vegetation. Blood cultures will be ordered one from port and one from peripheral vein. Antibiotics will be addressed. Continue supportive care. Further recommendations as patient progresses. The above dictated assessment and findings were discussed with Dr. Queen. The impression and plan of care have been directed as dictated. Octavia Brown nurse practitioner acting as scribe for Dr. Queen.
--- NOTE | 2019-02-27 11:46 | P.PN ---
Subjective Progress Note Date: 02/27/19 Principal diagnosis: Patient is a 53-year-old female with a known history of metastatic lung cancer currently undergoing chemotherapy(on cancer was in the diagnosed in 2016 status post lumpectomy and radiation, recurrence in 2018) subarachnoid hemorrhage recently and was transferred to [facility], history of PE currently not on anticoagulation due to SAH, history of CVA/TIA, GERD, hypertension, hyperlipidemia and history of brain aneurysm, history of IVC filter placement and recent frequent multiple admissions came to ER with complaints of confusion when she woke up in the morning.Last night the patient did not appear confused according to the daughter. Patient is able to speak clearly but does not make any sense and does not answer questions accurately. According to the daughter she had chemo on Monday. Patient is also complaining of any headache there's been no fever there's been no complaints of chest pain or difficulty breathing the patient had no vomiting or diarrhea. Patient has not complained of any abdominal pain. Patient is awake alert and oriented 2. Unable to give full history. CT head showed no acute cardiopulmonary process. Previous echocardiogram August 2018 showed normal EF. Patient was found have slightly elevated troponin level. 02/27/2019 Patient is lying in bed in no acute distress. Patient is still experiencing some expressive aphasia but is able to communicate much more today. Patient currently denies any chest pain, shortness of breath, or palpitations at this time. Patient is afebrile. Patient denies any nausea or vomiting and is tolerating diet. Patient states she does not have much of an appetite today but denies any abdominal discomfort at this time. Patient states she is going to the bathroom with no issues. Patient is being followed by multiple medical consultations and neurology has ordered an MRI of the brain along with an EEG and is currently pending at this time. Will await report. No acute overnight events. Guarded prognosis. Will continue to monitor closely. Objective - Vital Signs Vital signs: Vital Signs Temp 98.8 F 02/27/19 08:03 Pulse 101 H 02/27/19 08:03 Resp 15 02/27/19 08:03 BP 92/70 02/27/19 08:03 Pulse Ox 100 02/27/19 08:03 Intake & Output 02/26/19 02/27/19 02/27/19 18:59 06:59 18:59 Intake Total 800 590 Balance 800 590 Weight 63.049 kg Intake: Intake, IV Titration 800 Amount Sodium Chloride 0.9% 1, 800 000 ml @ 100 mls/hr IV . Q10H ONE Rx#:[id number] Oral 590 Other: Voiding Method Toilet # Voids 3 1 1 # Bowel Movements 0 - Exam PHYSICAL EXAMINATION: Patient is lying in the bed comfortably, no acute distress, awake alert and oriented x2. Vital signs are stable. Temp is 98.8F, pulse is 101, respirations are 15, blood pressure is 92/70, oxygen saturation is 100% on room air. HEENT: Normocephalic. Neck is supple. Pupils reactive. Nostrils clear. Oral cavity is moist. Ears reveal no drainage. Neck reveals no JVD, carotid bruits, or thyromegaly. CHEST EXAMINATION: Trachea is central. Symmetrical expansion. Lung cano clear to auscultation and percussion. CARDIAC: Normal S1, S2 with no gallops. No murmurs ABDOMEN: Soft. Bowel sounds normal. No organomegaly. No abdominal bruits. Extremities: reveal no edema. No clubbing or cyanosis Neurologically awake, alert, oriented x2 . Able to move all her extremities. Patient does have pressured speech and expressive aphasia. Mild improvement of the aphasia today. Skin: No rash or skin lesions. Psychiatric: Coperative. Musculoskeletal: No joint swelling or deformity. Normal range of motion. - Labs CBC & Chem 7: 02/26/19 12:32 02/26/19 12:32 Labs: Abnormal Lab Results - Last 24 Hours (Table) 02/26/19 02/26/19 02/26/19 Range/Units 12:32 12:32 12:32 WBC 11.7 H (3.8-10.6) k/uL RBC 2.43 L (3.80-5.40) m/uL Hgb 7.4 L (11.4-16.0) gm/dL Hct 24.2 L (34.0-46.0) % MCHC 30.4 L (31.0-37.0) g/dL RDW 19.2 H (11.5-15.5) % Plt Count 28 L (150-450) k/uL Neutrophils # 11.2 H (1.3-7.7) k/uL Lymphocytes # 0.3 L (1.0-4.8) k/uL Chloride 111 H (98-107) mmol/L Carbon Dioxide 19 L (22-30) mmol/L Glucose 119 H (74-99) mg/dL Troponin I 0.289 H* (0.000-0.034) ng/mL HDL Cholesterol (40-60) mg/dL 02/27/19 Range/Units 07:55 WBC (3.8-10.6) k/uL RBC (3.80-5.40) m/uL Hgb (11.4-16.0) gm/dL Hct (34.0-46.0) % MCHC (31.0-37.0) g/dL RDW (11.5-15.5) % Plt Count (150-450) k/uL Neutrophils # (1.3-7.7) k/uL Lymphocytes # (1.0-4.8) k/uL Chloride (98-107) mmol/L Carbon Dioxide (22-30) mmol/L Glucose (74-99) mg/dL Troponin I (0.000-0.034) ng/mL HDL Cholesterol 30 L (40-60) mg/dL Assessment and Plan Assessment: Dysarthria and expressive aphasia. Rule out acute/subacute CVA. CT head negative Acute on chronic metabolic encephalopathy Mildly elevated troponin level. Likely due to demand mismatch along with severe anemia Anemia and thrombocytopenia likely chemo related Metastatic lung cancer currently undergoing chemotherapy Recent history of subarachnoid hemorrhage in January 2019. Currently not on a ny anticoagulation or antiplatelet medication Hypertension Hyperlipidemia History of PE COPD DVT prophylaxis with SCDs Recommendations and discussion: Recommend to continue current medications, management, and symptomatic treatment. Patient will be undergoing an MRI of the brain along with an EEG today per neurology is currently pending at this time. Patient underwent an echo yesterday showing LV systolic function is preserved with an ejection fraction of 55-60%, grade 1 diastolic dysfunction with moderate nonmobile vegetation attached to the anterior mitral valve leaflet with a small nonmobile vegetation attached to the anterior tricuspid valve. Severe mitral and tricuspid regurgitation is noted also. Patient continues to have some expressive aphasia but is much more alert and talkative today. Will continue to monitor vital signs and labs closely. Multiple medical consultations are following closely. Further recommendations based on the clinical course. Prognosis guarded at this time.
--- NOTE | 2019-02-27 11:47 | P.PN ---
Subjective Progress Note Date: 02/27/19 Principal diagnosis: Altered mental status, confusion In follow-up today patient's speech is not is forced as it was yesterday, she is repeating her birthdate over and over but she was able to identify who I was and Dr. Fatima. She denies headache, vision changes. Objective - Vital Signs Vital signs: Vital Signs Temp 98.8 F 02/27/19 08:03 Pulse 101 H 02/27/19 08:03 Resp 15 02/27/19 08:03 BP 92/70 02/27/19 08:03 Pulse Ox 100 02/27/19 08:03 Intake & Output 02/26/19 02/27/19 02/27/19 18:59 06:59 18:59 Intake Total 800 590 Balance 800 590 Weight 63.049 kg Intake: Intake, IV Titration 800 Amount Sodium Chloride 0.9% 1, 800 000 ml @ 100 mls/hr IV . Q10H ONE Rx#:[id number] Oral 590 Other: Voiding Method Toilet # Voids 3 1 1 # Bowel Movements 0 - Constitutional General appearance: Present: average body habitus, cooperative, no acute distress - EENT Eyes: Present: anicteric sclerae, EOMI - Respiratory Details: Respirations even and unlabored - Cardiovascular Heart sounds: normal: S1, S2 - Peripheral edema leg Peripheral Edema: bilateral: None - Gastrointestinal General gastrointestinal: Present: normal bowel sounds, soft - Neurologic Neurologic Comment(s): Patient's tongue movements are more symmetrical today than they were yesterday - Psychiatric Psychiatric: Present: A&O x's 3 - Labs CBC & Chem 7: 02/26/19 12:32 02/26/19 12:32 Labs: Abnormal Lab Results - Last 24 Hours (Table) 02/26/19 02/26/19 02/26/19 Range/Units 12:32 12:32 12:32 WBC 11.7 H (3.8-10.6) k/uL RBC 2.43 L (3.80-5.40) m/uL Hgb 7.4 L (11.4-16.0) gm/dL Hct 24.2 L (34.0-46.0) % MCHC 30.4 L (31.0-37.0) g/dL RDW 19.2 H (11.5-15.5) % Plt Count 28 L (150-450) k/uL Neutrophils # 11.2 H (1.3-7.7) k/uL Lymphocytes # 0.3 L (1.0-4.8) k/uL Chloride 111 H (98-107) mmol/L Carbon Dioxide 19 L (22-30) mmol/L Glucose 119 H (74-99) mg/dL Troponin I 0.289 H* (0.000-0.034) ng/mL HDL Cholesterol (40-60) mg/dL 02/27/19 Range/Units 07:55 WBC (3.8-10.6) k/uL RBC (3.80-5.40) m/uL Hgb (11.4-16.0) gm/dL Hct (34.0-46.0) % MCHC (31.0-37.0) g/dL RDW (11.5-15.5) % Plt Count (150-450) k/uL Neutrophils # (1.3-7.7) k/uL Lymphocytes # (1.0-4.8) k/uL Chloride (98-107) mmol/L Carbon Dioxide (22-30) mmol/L Glucose (74-99) mg/dL Troponin I (0.000-0.034) ng/mL HDL Cholesterol 30 L (40-60) mg/dL Assessment and Plan (1) Altered mental status Narrative/Plan: Patient was supposed to be taking a baby aspirin after being diagnosed with ischemic CVA previously but, she states she was not taking. Encouraged patient to take her medications as prescribed. Also, patient is a history of PE, was on Eliquis. Patient was going to be resumed on this once her platelets were greater than 50,000 but, treatment has brought them down again, do not resume eliquis at this time. MRI of the brain is pending. Neurology is on the case Current Visit: Yes Status: Acute Priority: High Code(s): R41.82 - ALTERED MENTAL STATUS, UNSPECIFIED SNOMED Code(s): 711888419 (2) Metastatic lung cancer (metastasis from lung to other site) Narrative/Plan: She did have her 1st cycle of maintenance alimta 4 days ago. Alimta is a folate antimetabolite. Pt is supplemented with IM B12 and is taking folic acid. Harry typically occurs within 7-10 days from treatment. We'll monitor counts, no transfusions or GCSF at this time. Dr. Fatima discussed with the patient his concerns for poor tolerance to treatment as well as significant hematological toxicities. She was having difficulties with bleeding and clotting. Her situation is very complicated. Change in therapy is being considered. She is not due for treatment for another [address] Fatima will review the literature and patient will be considered for possibly another therapy. Dr. Fatiam has discussed pt's complicated situation with her daughter. Current Visit: No Status: Chronic Priority: Medium Code(s): C34.90 - MALIGNANT NEOPLASM OF UNSP PART OF UNSP BRONCHUS OR LUNG SNOMED Code(s): 48639353 Plan: Doctor attests: I performed a history and physical examination of this patient, developed impression and plan of care. Discussed with dictator. I agree with dictators note, documented as a scribe.
--- NOTE | 2019-02-27 13:35 | P.PN ---
Subjective Progress Note Date: 02/27/19 Patient's daughter was present today. Patient appears to be slightly better. She has more fluency in speech. Able to name some objects as per examination below. Denies any focal weakness. Patient appears very pleasant. MRIs are pending. Hemoglobin A1c pending. Total cholesterol is 107, LDL 47, HDL 30. Objective - Vital Signs Vital signs: Vital Signs Temp 96.5 F L 02/27/19 13:06 Pulse 87 02/27/19 13:06 Resp 14 02/27/19 13:06 BP 112/68 02/27/19 13:06 Pulse Ox 99 02/27/19 13:06 Intake & Output 02/26/19 02/27/19 02/27/19 18:59 06:59 18:59 Intake Total 800 590 Balance 800 590 Weight 63.049 kg Intake: Intake, IV Titration 800 Amount Sodium Chloride 0.9% 1, 800 000 ml @ 100 mls/hr IV . Q10H ONE Rx#:[id number] Oral 590 Other: Voiding Method Toilet # Voids 3 1 1 # Bowel Movements 0 - Exam Patient is fully alert and awake, very pleasant. No distress. She still has expressive aphasia. Patient able to name some objects like a pen, eyeglasses, trying to repeat words/sentences better than yesterday. Still could not repeat long sentences. Her visual cano are full. Face is symmetric. Tongue protrudes the midline. Muscle strength appears normal. No ataxia. Sensations equal. - Labs CBC & Chem 7: 02/26/19 12:32 02/26/19 12:32 Labs: Abnormal Lab Results - Last 24 Hours (Table) 02/26/19 02/26/19 02/27/19 Range/Units 12:32 12:32 07:55 WBC 11.7 H (3.8-10.6) k/uL RBC 2.43 L (3.80-5.40) m/uL Hgb 7.4 L (11.4-16.0) gm/dL Hct 24.2 L (34.0-46.0) % MCHC 30.4 L (31.0-37.0) g/dL RDW 19.2 H (11.5-15.5) % Plt Count 28 L (150-450) k/uL Neutrophils # 11.2 H (1.3-7.7) k/uL Lymphocytes # 0.3 L (1.0-4.8) k/uL Troponin I 0.289 H* (0.000-0.034) ng/mL HDL Cholesterol 30 L (40-60) mg/dL Assessment and Plan Assessment: * 53-year-old female with history of metastatic lung cancer, admitted with an episode of transient visual loss, with subsequent expressive aphasia. Rule out subacute CVA. Rule out cerebral metastasis. Rule out meningeal carcinomatosis. Patient is also severely anemic, which could be contributing to cerebral ischemia. * History of subarachnoid hemorrhage due to thrombocytopenia on 01/28/2019. * Anemia * Metastatic lung cancer. Plan: * Await MRI of the brain with and without contrast to evaluate for subacute CVA versus metastatic lesion versus other processes. * Await EEG to evaluate for epileptiform activity. Patient currently is on Keppra started empirically after her recent admission for subarachnoid hemorrhage. Never had any history of seizures in the past. * Would hold off on antiplatelet medication because of significant thromboc ytopenia, and risk of recurrence of subarachnoid hemorrhage. * Oncology following for thrombocytopenia, and metastatic lung cancer. * Fasting lipid panel showed cholesterol 107, LDL 47, HDL 30. Hemoglobin A1c still pending. * Discussed with patient's daughter in detail.
[2019-02-27] MEDS: LEVOFLOXACIN 750MG-D5W PMX 750 MG in DEXTROSE/WATER 1 150ML.BAG IVPB SCH (14:49)
--- NOTE | 2019-02-27 17:05 | EEG ---
ELECTROENCEPHALOGRAM REPORT DATE OF SERVICE: 02/27/2019. PREAMBLE: This is a 53-year-old female with history of metastatic lung cancer, has presented with expressive aphasia and some altered mental status. This study is performed to evaluate for any epileptiform activity. Current medications Keppra. EEG FINDINGS: Routine 21 channel awake digital EEG recording was accomplished utilizing the 10/20 international system with bipolar and referential montages. The background activity consists of well developed and well regulated, moderate amplitude activity and 8-9 hertz alpha. Background is posterior dominant and reactive to eye opening and closing. There is a near constant slowing and polymorphic delta and theta range involving the left temporal more than right temporal region. Occasional sharply contoured waves were also seen, but did not appear clearly epileptiform. Different stages of sleep were not seen. Photic driving response was not clearly seen. IMPRESSION: This is an abnormal EEG due to focal slowing in the bitemporal region, left much more than right side. This is suggestive of focal cortical neuronal dysfunction in the above-described region. If your suspicion for seizures is high, consider prolonged, sleep-deprived EEG. MMODL / IJN: [id number] / ATIF
--- NOTE | 2019-02-27 17:26 | MR ---
EXAMINATION TYPE: MR brain wo/w con DATE OF EXAM: 02/27/2019 COMPARISON: February 13, 2019 HISTORY: AMS, stage 4 lung ca w/mets TECHNIQUE: Multiplanar, multisequence images of the brain and brainstem is performed without and with IV contras t, utilizing 6.5 mL intravenous Gadavist . FINDINGS: There is gyriform wedge-shaped area of increased signal on the diffusion images involving l eft posterior temporal lobe that measures 4 x 2 cm. There are punctate high signal diffusion image fo ci in the left parietal and left posterior temporal lobe that measure up to 8 mm. There is no mass ef fect nor midline shift. The contrast images show some gyriform pathologic enhancement left posterior temporal lobe consistent with ischemic subacute infarct. I do not see nodular enhancement to suggest metastatic disease. Ventricles have normal size. The brainstem is intact but cerebellum is intact. On the FLAIR images th ere is 8 mm white matter high signal focus right frontal lobe without enhancement. IMPRESSION: Nonenhancing white matter foci measure up to 8 mm and consistent with acute and chronic lacunar infa rcts in the right frontal, left parietal, left posterior temporal lobes. There is evidence of subacut e ischemic infarct in the cortex left posterior temporal lobe There is a new 8 mm lacunar infarct left posterior frontal lobe compared to old exam. I do not see ev idence of metastatic disease.. there is extension of the left posterior temporal lobe area of infarct compared to old exam..
[2019-02-27 18:46] LABS: Hemoglobin A1C 4.4 % (4.0-6.0)
--- NOTE | 2019-02-27 20:33 | P.CON ---
Consult Note - . Consult date: 02/27/19 Assessment/Plan:: This is a pleasant 53-year-old -Citizen Of [place] female diagnosed with adenocarcinoma in July 2015 status post surgical intervention and she was advised for chemotherapy but had poor follow-up. 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 At that time she was advised that cancer was not curable and treatment would be to prolong life and palliation of symptoms. There was also concern at that time for ovarian mass. She was also found to have a pulmonary embolism and started on eliquis. In July of this year patient was hospitalized was found to have a pelvic mass, liver lesions and omentum masses with recurrent adenocarcinoma of the lung on cytology and liver biopsy. At that time she was also found to have pulmonary embolism but was admitted with vaginal bleeding. 01/28/2019 she was found to h ave a subarachnoid hemorrhage and was transferred to [facility] for further evaluation. The patient presented to the hospital with symptoms of altered mental status. She underwent a round of chemotherapy on Monday. She denies symptoms of chest discomfort, shortness of breath, cough, sputum production, dizziness, nausea, vomiting or diarrhea. She does admit to decreased appetite. She denies any fever or chills. At the time of this evaluation, patient feels her mental status is improved. Patient was admitted to the [facility] floor and is been seen in consultation by cardiology. Echocardiogram revealed egetation to the mitral valve and tricuspid valve and thus this ID consult was requested. Echocardiogram also revealed severe mitral regurgitation, severe tricuspid regurgitation, EF 55-60%. WBC 13.9 repeat 11.7, hemoglobin 7.4, platelets 28, sodium 137, potassium 4.5, creatinine 0.86, troponin 0.444, 0.289. Urinalysis negative for infection. Urine drug screen positive for opiates and benzodiazepines. Chest x-ray reveals a patchy right lower lung opaque a c s s representative early developing pneumonia or atelectasis. Brain CT is negative for acute intracranial process. There is no suspicious underlying metastatic lesions. Patient relates that she is unsteady with ambulation. Please see the consult note is dictated by nurse practitioner Octavia Lindfabiola. 53-year-old woman who has multiple medical troubles receiving chemotherapy for her adenocarcinoma the superior glottis treated with radiation therapy and most recently chemotherapy. He has noted she's had many troubles that include metastatic disease to her liver and lung, she's had a pulmonary embolus is requiring anticoagulant therapy. Subarachnoid hemorrhage occurred 01/28/2019 and apparently he started to have some improvement of her mental status. She is able to relate that the present is Ruben a date of is 1965. Initially the nursing staff this is improved from the day of admission. Given the patient's physical exam of the lower mitral and tricuspid regurgitation and evidence of a heave an echocardiogram was performed showing evidence of the lesions on the mitral and tricuspid valves. The patient did not present with fever chills rigors and sweats hypotension or evidence of significant sepsis. Constantly subacute bacterial endocarditis potentially related to her IV access is of concern. However underlying noninfected vegetations relating to her underlying cancer is also considered. It is getting determine how acute her regurgitation murmurs are. She has maintained her ejection fraction was relate that the changes are more likely acute. At this time multiple blood cultures have been requested. Would not initiate antibiotic therapy until further blood cultures have been obtained and there is evidence of underlying infection. Pathogen directed therapy for endocarditis improves morbidity and mortality. I agree with evaluation, assessment and plan as dictated by nurse practitioner Mrs. Octavia Brown.
[2019-02-27] MEDS: ATORVASTATIN 80 MG TAB PO SCH (21:41)
[2019-02-27] MEDS: SODIUM CHLORIDE 0.9% 1,000 ML IV SCH (21:44)
[2019-02-28] MEDS: PANTOPRAZOLE 40 MG TABLET PO SCH (07:34)
[2019-02-28] MEDS: oxyCODONE-APAP 10-325MG 1 EACH TAB PO PRN ×2 (08:47→20:04)
[2019-02-28] MEDS: FOLIC ACID 1 MG TAB PO SCH (09:04)
[2019-02-28] MEDS: levETIRAcetam 500 MG TAB PO SCH ×2 (09:04→20:04)
[2019-02-28] MEDS: predniSONE 20 MG TAB PO SCH (09:05)
[2019-02-28] MEDS: METOPROLOL TARTRATE 25 MG TAB PO SCH ×2 (09:05→20:04)
[2019-02-28] MEDS: MEGESTROL 400 MG/10 ML CUP PO SCH (09:05)
[2019-02-28 09:32] LABS: Anisocytosis Slight; Hypochromasia Marked; MCH 30.3 pg (25.0-35.0); MCV 97.9 fL (80.0-100.0); Macrocytosis Slight; Mean Platelet Volume 6.4; Poikilocytosis Slight; RBC 1.96 m/uL (3.80-5.40); RDW 18.3 % (11.5-15.5); WBC 6.8 k/uL (3.8-10.6)
[2019-02-28 09:34] LABS: HCT 19.2 % (34.0-46.0)
[2019-02-28 10:14] LABS: Platelet Count 8 k/uL (150-450)
[2019-02-28 10:19] LABS: Eosinophils # (M) 0.14 k/uL (0-0.7); Hypersegmented Neutrophils Present; Lymphocytes # (M) 0.41 k/uL (1.0-4.8); Monocytes # (M) 0.07 k/uL (0-1.0); Neutrophils % (M) 92 %; Nucleated Red Blood Cells 0 /100 WBC (0-0); Total Cells Counted 200
[2019-02-28 10:21] LABS: RBC Fragments Present; Tear Drop Cells Present
[2019-02-28] MEDS ORDERED: POLYETHYLENE GLYCOL 3350 17 GM POWD.PACK PO SCH (11:15)
[2019-02-28] MEDS ORDERED: LEVOFLOXACIN 750 MG TAB PO SCH (15:00)
--- NOTE | 2019-02-28 15:06 | P.PN ---
Subjective This is a pleasant 53-year-old -[place] female past medical history significant for metastatic lung cancer status post radiation, chemotherapy and lobectomy. She also has a history of PE, hypertension, dyslipidemia, subarachnoid hemorrhage and nicotine dependence. Per the daughter, she was initially diagnosed with lung cancer in 2016 and underwent lobectomy. Then in 2018 she was found to have throat cancer and reoccurrence in lung with metastasis to the liver. She is seen and examined sitting up in bed in no acute distress. She denies chest pain, shortness of breath, dizziness or palpitations. Echo results discussed in detail with the patient and her daughter. Dr. Queen has seen the patient and is awaiting blood cultures. Blood pressure 87/52 heart rate 87 afebrile and maintaining oxygen saturation on room air. Currently under going blood transfusion. Laboratory data reviewed, WBC 6.8, hemoglobin 6, platelets 8. Preliminary results of this initial blood cultures reveal no growth after 24 hours. GENERAL: This is a 53-year-old -[place] female in no apparent distress at the time of my examination. HEENT: Head is atraumatic, normocephalic. Pupils are equal, round. Sclerae anicteric. Conjunctivae are clear. Mucous membranes of the mouth are moist. Neck is supple. There is no jugular venous distention. No carotid bruit is heard. LUNGS: Clear to auscultation no wheezes, rales or rhonchi. No chest wall tenderness is noted on palpation or with deep breathing. HEART: Regular rate and rhythm without murmurs, rubs or gallops. S1 and S2 heard. EXTREMITIES: No evidence of peripheral edema and no calf tenderness noted. ASSESSMENT Altered mental status Vegetation noted on the mitral and tricuspid valve with severe thickening. Could be related to a vegetation versus metastatic mass. Elevated troponin, unclear significance. Likely related to oxygen supplied mismatch in the setting of anemia. 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 Antibiotic/treatment recommendations per infectious disease. Also consider possible tumor/metastsis. Nurse Practitioner note has been reviewed, I agree with a documented findings and plan of care. Patient was seen and examined. Objective - Vital Signs Vital signs: Vital Signs Temp 97.7 F 02/28/19 12:52 Pulse 87 10/17/19 12:52 Resp 16 02/28/19 12:52 BP 87/52 02/28/19 12:52 Pulse Ox 100 02/28/19 12:42 Intake & Output 02/27/19 02/28/19 02/28/19 18:59 06:59 18:59 Intake Total 590 1200 0 Balance 590 1200 0 Intake: Intake, IV Titration 1200 Amount Sodium Chloride 0.9% 1, 1200 000 ml @ 75 mls/hr IV . [id number] [facility] Rx#:[id number] Oral 590 Blood Product 0 Rc Pheresis 2 As3 Unit 0 [id number] Other: Voiding Method Toilet Toilet Toilet # Voids 2 2 # Bowel Movements 0 - Labs CBC & Chem 7: 02/28/19 09:05 02/26/19 12:32 Labs: Abnormal Lab Results - Last 24 Hours (Table) 02/28/19 02/28/19 Range/Units 09:05 09:45 RBC 1.96 L (3.80-5.40) m/uL Hgb 6.0 L* (11.4-16.0) gm/dL Hct 19.2 L* (34.0-46.0) % RDW 18.3 H (11.5-15.5) % Plt Count 8 L* D (150-450) k/uL Lymphocytes # (Manual) 0.41 L (1.0-4.8) k/uL Crossmatch See Detail Microbiology - Last 24 Hours (Table) 02/27/19 11:17 Blood Culture - Preliminary Blood No Growth after 24 hours
[2019-02-28] MEDS: SODIUM CHLORIDE 0.9% 1,000 ML IV SCH ×2 (16:03→22:08)
--- NOTE | 2019-02-28 17:29 | P.PN ---
Subjective Progress Note Date: 02/28/19 Principal diagnosis: Altered mental status, confusion, TIA/CVA In follow-up today patient is much improved, she is moving about freely, no deficits noted, speech is clear, she does not remember the last 2 days. Denies bleeding, no other c/o on a 10 point ROS Objective - Vital Signs Vital signs: Vital Signs Temp 98.2 F 02/28/19 15:06 Pulse 99 02/28/19 15:06 Resp 16 02/28/19 15:06 BP 100/69 02/28/19 15:06 Pulse Ox 100 02/28/19 12:42 Intake & Output 02/27/19 02/28/19 02/28/19 18:59 06:59 18:59 Intake Total 590 1200 760 Balance 590 1200 760 Intake: Intake, IV Titration 1200 450 Amount Sodium Chloride 0.9% 1, 1200 450 000 ml @ 75 mls/hr IV . [id number] [facility] Rx#:[id number] Oral 590 Blood Product 310 Rc Pheresis 2 As3 Unit 310 [id number] Other: Voiding Method Toilet Toilet Toilet # Voids 2 2 3 # Bowel Movements 0 - Constitutional General appearance: Present: average body habitus, cooperative, no acute distress - EENT Eyes: Present: anicteric sclerae, EOMI ENT: Present: hearing grossly normal, normal oropharynx - Respiratory Respiratory: bilateral: CTA - Cardiovascular Heart sounds: normal: S1, S2 Abnormal Heart Sounds: Absent: systolic murmur, diastolic murmur, rub, S3 Gallop, S4 Gallop, click, other - Peripheral edema leg Peripheral Edema: bilateral: None - Gastrointestinal General gastrointestinal: Present: normal bowel sounds, soft - Neurologic Neurologic: Present: CNII-XII intact - Musculoskeletal Musculoskeletal: Present: strength equal bilaterally - Psychiatric Psychiatric: Present: A&O x's 3, appropriate affect, intact judgment & insight - Labs CBC & Chem 7: 02/28/19 09:05 02/26/19 12:32 Labs: Abnormal Lab Results - Last 24 Hours (Table) 02/28/19 02/28/19 Range/Units 09:05 09:45 RBC 1.96 L (3.80-5.40) m/uL Hgb 6.0 L* (11.4-16.0) gm/dL Hct 19.2 L* (34.0-46.0) % RDW 18.3 H (11.5-15.5) % Plt Count 8 L* D (150-450) k/uL Lymphocytes # (Manual) 0.41 L (1.0-4.8) k/uL Crossmatch See Detail Microbiology - Last 24 Hours (Table) 02/27/19 11:17 Blood Culture - Preliminary Blood No Growth after 24 hours - Imaging and Cardiology MRI - head: report reviewed Assessment and Plan (1) Altered mental status Narrative/Plan: Patient was supposed to be taking a baby aspirin after being diagnosed with ischemic CVA previously but, she states she was not taking. Encouraged patient to take her medications as prescribed. Also, patient is a history of PE, was on Eliquis. Patient was going to be resumed on this once her platelets were greater than 50,000 but, treatment has brought them down again, do not resume eliquis at this time. MRI of the brain positive for acute, chronic and subacute infarct. Neurology is on the case, awaiting recommendations. Reviewing literature re: thrombopoetic agents and use in this unique case. Current Visit: Yes Status: Acute Priority: High Code(s): R41.82 - ALTERED MENTAL STATUS, UNSPECIFIED SNOMED Code(s): 028647029 (2) Metastatic lung cancer (metastasis from lung to other site) Narrative/Plan: She did have her 1st cycle of maintenance alimta 4 days ago. Alimta is a folate antimetabolite. Pt is supplemented with IM B12 and is taking folic acid. Harry typically occurs within 7-[address] Fatima discussed with the patient his concerns for poor tolerance to treatment as well as significant hematological toxicities. She was having difficulties with bleeding and clotting. Her situation is very complicated. Change in therapy is being considered. She is not due for treatment for another [address] Fatima will review the literature and patient will be considered for possibly another therapy. Current Visit: No Status: Chronic Priority: Medium Code(s): C34.90 - MALIGNANT NEOPLASM OF UNSP PART OF UNSP BRONCHUS OR LUNG SNOMED Code(s): 61467953 (3) Pancytopenia due to antineoplastic chemotherapy Narrative/Plan: 1 unit PRBCs and 1 unit SDP today. CBC daily Current Visit: Yes Status: Acute Priority: High Code(s): D61.810 - ANTINEOPLASTIC CHEMOTHERAPY INDUCED PANCYTOPENIA; T45.1X5A - ADVERSE EFFECT OF ANTINEOPLASTIC AND IMMUNOSUP DRUGS, INIT SNOMED Code(s): 646867167250391
[2019-02-28 20:03] VITALS: TEMP 98.8
[2019-02-28] MEDS: ATORVASTATIN 80 MG TAB PO SCH (20:04)
--- NOTE | 2019-02-28 20:18 | P.PN ---
Subjective Progress Note Date: 02/28/19 Patient was laying in the bed. Patient appears to be slightly better. She has more fluency in speech. Able to name some all objects as per examination below. Denies any focal weakness. Patient appears very pleasant. MRIs reviewed. It revealed nonenhancing white matter foci measures up to 8 mm and consistent with acute and chronic lacunar infarcts in the right frontal, left parietal, left posterior temporal lobes. There is evidence of subacute ischemic infarct in the cortex left posterior temporal lobe. There is a new 8 mm lacunar infarct left posterior frontal lobe compared to the old exam. I do not see any evidence of metastatic disease. Hemoglobin A1c 4.4. Total cholesterol is 107, LDL 47, HDL 30. Objective - Vital Signs Vital signs: Vital Signs Temp 98.2 F 02/28/19 15:06 Pulse 99 02/28/19 15:06 Resp 16 02/28/19 15:06 BP 100/69 02/28/19 15:06 Pulse Ox 100 02/28/19 12:42 Intake & Output 02/28/19 02/28/19 03/01/19 06:59 18:59 06:59 Intake Total 1200 760 Balance 1200 760 Intake: Intake, IV Titration 1200 450 Amount Sodium Chloride 0.9% 1, 1200 450 000 ml @ 75 mls/hr IV . [id number] [facility] Rx#:[id number] Blood Product 310 Rc Pheresis 2 As3 Unit 310 [id number] Other: Voiding Method Toilet Toilet # Voids 2 3 - Exam Patient is fully alert and awake, very pleasant. No distress. Her speech has improved as compared to yesterday. She can express better. She could name all objects presented. She can repeat better. Still problems with repeating longer sentences. Still has some word finding problems and paraphasic errors. Her visual cano are full. Face is symmetric. Tongue protrudes the midline. Muscle strength appears normal. No ataxia. Sensations equal. - Labs CBC & Chem 7: 02/28/19 09:05 02/26/19 12:32 Labs: Abnormal Lab Results - Last 24 Hours (Table) 02/28/19 02/28/19 Range/Units 09:05 09:45 RBC 1.96 L (3.80-5.40) m/uL Hgb 6.0 L* (11.4-16.0) gm/dL Hct 19.2 L* (34.0-46.0) % RDW 18.3 H (11.5-15.5) % Plt Count 8 L* D (150-450) k/uL Lymphocytes # (Manual) 0.41 L (1.0-4.8) k/uL Crossmatch See Detail Microbiology - Last 24 Hours (Table) 02/27/19 11:17 Blood Culture - Preliminary Blood No Growth after 24 hours Assessment and Plan Assessment: * 53-year-old female with history of metastatic lung cancer, admitted an acute ischemic CVA involving the left MCA vascular territory, somewhat in watershed distribution. No evidence of metastatic disease. * History of subarachnoid hemorrhage due to thrombocytopenia on 01/28/2019. * Anemia and thrombocytopenia, likely related to chemotherapeutic side effects * Metastatic lung cancer. Plan: * MRI of brain reviewed. Evidence of acute ischemia involving multiple vascular territories. Most significant involving the left MCA vascular territory, somewhat in watershed distribution, as well as left posterior parietal temporal region.. Patient needs antiplatelet medication, but cannot be given because of severe thrombocytopenia and anemia. * We'll check carotid Doppler to rule out carotid stenosis. Consider 2-D echo to evaluate for embolic source. Per tar processing technician, patient had a 2-D echo performed recently which was abnormal, showing a thrombus/agitation, therefore it was canceled. However I could not see that report in the electronic records. * EEG showed focal slowing in bitemporal region, left much worse than right. This is suggestive of focal cortical neuronal dysfunction in the above described region. If your suspicion for seizures is high, consider prolonged, sleep deprived EEG. No definitive epileptiform activity seen. * Continue Keppra at current dose. * Patient's severe anemia and thrombocytopenia is related to chemotherapeutic side effect. Uncertain if patient is able to tolerate chemotherapy any further. * Oncology following for thrombocytopenia, and metastatic lung cancer. Prognosis appears very guarded to poor due to multitude of critical medical issues. * Fasting lipid panel showed cholesterol 107, LDL 47, HDL 30. Hemoglobin A1c 4.4.
[2019-02-28] MEDS ORDERED: ALPRAZolam 0.25 MG TAB PO STA (22:55)
[2019-03-01 02:27] LABS: Glucose,Whole Blood 155 mg/dL (75-99)
[2019-03-01] MEDS ORDERED: ONDANSETRON 4 MG/2 ML VIAL IVP PRN (02:50)
[2019-03-01] MEDS ORDERED: ONDANSETRON 4 MG/2 ML VIAL ONE (02:50)
[2019-03-01 03:16] LABS: Anisocytosis Slight; HCT 23.8 % (34.0-46.0); Hypochromasia Marked; MCH 30.8 pg (25.0-35.0); MCV 93.5 fL (80.0-100.0); Macrocytosis Slight; Mean Platelet Volume 6.5; Poikilocytosis Moderate; RBC 2.54 m/uL (3.80-5.40); RDW 18.6 % (11.5-15.5)
--- NOTE | 2019-03-01 03:26 | CT ---
EXAMINATION TYPE: CT brain wo con DATE OF EXAM: 03/01/2019 COMPARISON: 02/25/2019 HISTORY: Patient presents with headache after fall. CT DLP: 1029.9 mGycm Automated exposure control for dose reduction was used. FINDINGS: There is some linear increased attenuation left posterior parietal lobe consistent with acute parench ymal hemorrhage. There is no midline shift. There is no mass effect. The calvarium is intact. There i s no sign of a skull fracture. There is occipital craniotomy defect noted. I do not see evidence for subdural or epidural hemorrhage. IMPRESSION: THERE IS AN APPROXIMATE 2 BY 0.5 CM SOMEWHAT LINEAR AREA OF ACUTE PARENCHYMAL HEMORRHAGE LEFT POSTERI OR PARIETAL LOBE THAT IS A CHANGE COMPARED TO LAST EXAM. THERE IS MIDLINE OCCIPITAL SCALP HEMATOMA TH AT IS NEW COMPARED TO OLD EXAM. THIS EXAM WAS DISCUSSED WITH THE PATIENT'S NURSE RAVINDRA ON THE FLOOR AT 3:30 AM.
[2019-03-01 03:41] LABS: Glucose,Whole Blood 146 mg/dL (75-99)
[2019-03-01 03:42] LABS: Albumin 3.1 g/dL (3.5-5.0); Calcium 9.1 mg/dL (8.4-10.2); Potassium 3.9 mmol/L (3.5-5.1); Total Bilirubin 0.5 mg/dL (0.2-1.3); Total Protein 5.8 g/dL (6.3-8.2)
[2019-03-01 03:59] LABS: Platelet Count 10 k/uL (150-450)
[2019-03-01 04:00] LABS: HGB 7.8 gm/dL (11.4-16.0)
[2019-03-01 04:06] LABS: Polychromasia Present
[2019-03-01 04:09] LABS: Magnesium 1.7 mg/dL (1.6-2.3); Phosphorus 2.9 mg/dL (2.5-4.5)
[2019-03-01 04:13] LABS: Neutrophils % (M) 82 %
[2019-03-01 04:16] LABS: Monocytes # (M) 0.09 k/uL (0-1.0); Nucleated Red Blood Cells 3 /100 WBC (0-0); Total Cells Counted 200; WBC 9.4 k/uL (3.8-10.6)
[2019-03-01] MEDS: PROPOFOL 1,000 MG in EMPTY BAG 1 BAG IV SCH ×2 (04:17→07:22)
[2019-03-01 04:19] LABS: RBC Fragments Present
[2019-03-01] MEDS ORDERED: NALOXONE 0.4 MG/ML 1 ML VIAL IV PRN (04:35)
--- NOTE | 2019-03-01 04:52 | XR ---
EXAM: XR Chest, 1 View CLINICAL HISTORY: ET placement TECHNIQUE: Frontal view of the chest. COMPARISON: October 20, 2018. FINDINGS: Lines and tubes: The distal tip of ET tube is above the lisa. Distal tip of the enteric tube is within the stomach. Stable right-sided Port-A- Cath with distal tip in the cavoatrial junction. Lungs: Likely skinfold in the left upper lung. No consolidation. Pleural space: Small right pleural effusion/pleural thickening, stable. No pneumothorax. Heart: Unremarkable. No cardiomegaly. Mediastinum: Unremarkable. Bones/joints: Unremarkable. IMPRESSION: Lines and tubes are appropriately located. Stable small right pleural effusion/pleural thickening.
--- NOTE | 2019-03-01 04:56 | XR ---
EXAM: XR Cervical Spine, 1 View CLINICAL HISTORY: Clearance. TECHNIQUE: Lateral view of the cervical spine. COMPARISON: No relevant prior studies available. FINDINGS: The C6, C7, and upper thoracic spine not adequately evaluated. There is normal alignment of the upper and mid cervical spine. No prevertebral soft tissue swelling. Degenerative changes in the mid cervical spine. IMPRESSION: Limited single lateral view. C6, C7, and upper thoracic spine not evaluated on this radiograph. No evidence of acute fractures or malalignment in the visualized portions.
[2019-03-01 05:21] LABS: ABG Base Excess -7.5 mmol/L; ABG HCO3 17 mmol/L (21-25); ABG PCO2 25 mmHg (35-45); ABG PH 7.44 (7.35-7.45); ABG PO2 >400 mmHg (83-108); ABG TCO2 17 mmol/L (19-24); Allen Test Performed? Yes
[2019-03-01] MEDS ORDERED: CHLORHEXIDINE GLUCONATE 15 ML CUP MUCOUS MEM ONE (06:00)
[2019-03-01] MEDS ORDERED: MIDAZOLAM 1 MG/ML 5 ML VIAL ONE (06:00)
[2019-03-01] MEDS ORDERED: PROPOFOL 10 MG/ML 20 ML VIAL IV ONE (06:00)
[2019-03-01] MEDS ORDERED: SUCCINYLCHOLINE CHLORIDE VIAL 200 MG/10 ML VIAL IV ONE (06:00)
[2019-03-01] MEDS: PANTOPRAZOLE 40 MG TABLET PO SCH (06:05)
[2019-03-01 07:39] VITALS: BP 126/99; PULSE 94; RESP 7
--- NOTE | 2019-03-01 08:36 | P.PN ---
Subjective Progress Note Date: 02/28/19 Principal diagnosis: Patient is a 53-year-old female with a known history of metastatic lung cancer currently undergoing chemotherapy(on cancer was in the diagnosed in 2016 status post lumpectomy and radiation, recurrence in 2018) subarachnoid hemorrhage recently and was transferred to [facility], history of PE currently not on anticoagulation due to SAH, history of CVA/TIA, GERD, hypertension, hyperlipidemia and history of brain aneurysm, history of IVC filter placement and recent frequent multiple admissions came to ER with complaints of confusion when she woke up in the morning.Last night the patient did not appear confused according to the daughter. Patient is able to speak clearly but does not make any sense and does not answer questions accurately. According to the daughter she had chemo on Monday. Patient is also complaining of any headache there's been no fever there's been no complaints of chest pain or difficulty breathing the patient had no vomiting or diarrhea. Patient has not complained of any abdominal pain. Patient is awake alert and oriented 2. Unable to give full history. CT head showed no acute cardiopulmonary process. Previous echocardiogram August 2018 showed normal EF. Patient was found have slightly elevated troponin level. 02/27/2019 Patient is lying in bed in no acute distress. Patient is still experiencing some expressive aphasia but is able to communicate much more today. Patient currently denies any chest pain, shortness of breath, or palpitations at this time. Patient is afebrile. Patient denies any nausea or vomiting and is tolerating diet. Patient states she does not have much of an appetite today but denies any abdominal discomfort at this time. Patient states she is going to the bathroom with no issues. Patient is being followed by multiple medical consultations and neurology has ordered an MRI of the brain along with an EEG and is currently pending at this time. Will await report. No acute overnight events. Guarded prognosis. Will continue to monitor closely. 02/28/2019 Patient is sitting up in bed in no acute distress with no acute overnight issues. Patient's speech is much better today and daughter at the bedside states that is much improved from previous. Patient is having some mild abdominal discomfort due to no bowel movement in the past day and is requesting some MiraLAX. Patient was able to express this on her own. Patient states that she is urinating well and tolerating diet. Patient denies any chest pain, shortness of breath, or palpitations at this time. Patient is afebrile. Patient underwent an MRI of the brain yesterday showing a nonenhancing white mat ter foci measure up to 8 mm and consistent with acute and chronic lacunar infarcts in the right frontal, left parietal, left posterior temporal lobes with evidence of subacute ischemic infarct in the cortex left posterior temporal lobe. There is also a new 8 mm lacunar infarct left posterior frontal lobe as compared to the old exam with no evidence of metastatic disease. Neurology is following. Patient also underwent an EEG showing as abnormal due to focal slowing in the bitemporal region left more so than the right side which is suggestive of a focal cortical neuronal dysfunction. Patient is to continue on current antiseizure medication of Keppra. Patient denies any headache, dizziness, lightheadedness, or visual disturbances at this time. Will continue to monitor closely. Multiple medical consultations are following. Extremely guarded prognosis. Objective - Vital Signs Vital signs: Vital Signs Temp 98.8 F 02/28/19 20:02 Pulse 94 03/01/19 07:20 Resp 7 L 03/01/19 07:20 BP 126/99 03/01/19 07:30 Pulse Ox 93 L 03/01/19 07:30 Intake & Output 02/28/19 03/01/19 03/01/19 18:59 06:59 18:59 Intake Total 760 558.474 34.425 Output Total 410 Balance 760 148.474 34.425 Intake: Intake, IV Titration 450 318.474 34.425 Amount Propofol 1,000 mg In 18.474 34.425 Empty Bag 1 bag @ Titrate IV .Q0M [facility] Rx#: [id number] Sodium Chloride 0.9% 1, 450 300 000 ml @ 75 mls/hr IV . [id number] [facility] Rx#:[id number] Oral 240 Blood Product 310 Rc Pheresis 2 As3 Unit 310 [id number] Output: Urine 410 Other: Voiding Method Toilet Toilet # Voids 3 1 - Exam PHYSICAL EXAMINATION: Patient is lying in the bed comfortably, no acute distress, awake alert and oriented x2-3. Vital signs are stable. Temp is 98 F, pulse is 85, respirations are 17, blood pressure is 125/66, oxygen saturation is 100% on room air. HEENT: Normocephalic. Neck is supple. Pupils reactive. Nostrils clear. Oral cavity is moist. Ears reveal no drainage. Neck reveals no JVD, carotid bruits, or thyromegaly. CHEST EXAMINATION: Trachea is central. Symmetrical expansion. Lung cano clear to auscultation and percussion. CARDIAC: Normal S1, S2 with no gallops. No murmurs ABDOMEN: Soft. Bowel sounds normal. No organomegaly. No abdominal bruits. Mild tenderness noted on deep palpation of the lower abdomen Extremities: reveal no edema. No clubbing or cyanosis Neurologically awake, alert, oriented x2 . Able to move all her extremities. Patient does have pressured speech and expressive aphasia. Improvement shown from previous day of expressive aphasia Skin: No rash or skin lesions. Psychiatric: Coperative. Musculoskeletal: No joint swelling or deformity. Normal range of motion. - Labs CBC & Chem 7: 03/01/19 02:56 03/01/19 02:56 Labs: Abnormal Lab Results - Last 24 Hours (Table) 02/28/19 02/28/19 03/01/19 Range/Units 09:05 09:45 02:25 RBC 1.96 L (3.80-5.40) m/uL Hgb 6.0 L* (11.4-16.0) gm/dL Hct 19.2 L* (34.0-46.0) % RDW 18.3 H (11.5-15.5) % Plt Count 8 L* D (150-450) k/uL Neutrophils # (Manual) (1.3-7.7) k/uL Lymphocytes # (Manual) 0.41 L (1.0-4.8) k/uL Nucleated RBCs (0-0) /100 WBC ABG pCO2 (35-45) mmHg ABG pO2 (83-108) mmHg ABG HCO3 (21-25) mmol/L ABG Total CO2 (19-24) mmol/L ABG O2 Saturation (94-97) % Chloride (98-107) mmol/L Carbon Dioxide (22-30) mmol/L BUN (7-17) mg/dL Glucose (74-99) mg/dL POC Glucose (mg/dL) 155 H (75-99) mg/dL AST (14-36) U/L ALT (9-52) U/L Total Protein (6.3-8.2) g/dL Albumin (3.5-5.0) g/dL Crossmatch See Detail 03/01/19 03/01/19 03/01/19 Range/Units 02:56 02:56 03:39 RBC 2.54 L (3.80-5.40) m/uL Hgb 7.8 L D (11.4-16.0) gm/dL Hct 23.8 L (34.0-46.0) % RDW 18.6 H (11.5-15.5) % Plt Count 10 L* (150-450) k/uL Neutrophils # (Manual) 8.60 H (1.3-7.7) k/uL Lymphocytes # (Manual) (1.0-4.8) k/uL Nucleated RBCs 3 H (0-0) /100 WBC ABG pCO2 (35-45) mmHg ABG pO2 (83-108) mmHg ABG HCO3 (21-25) mmol/L ABG Total CO2 (19-24) mmol/L ABG O2 Saturation (94-97) % Chloride 113 H (98-107) mmol/L Carbon Dioxide 18 L (22-30) mmol/L BUN 18 H (7-17) mg/dL Glucose 112 H (74-99) mg/dL POC Glucose (mg/dL) 146 H (75-99) mg/dL AST 42 H (14-36) U/L ALT 97 H (9-52) U/L Total Protein 5.8 L (6.3-8.2) g/dL Albumin 3.1 L (3.5-5.0) g/dL Crossmatch 03/01/19 Range/Units 05:18 RBC (3.80-5.40) m/uL Hgb (11.4-16.0) gm/dL Hct (34.0-46.0) % RDW (11.5-15.5) % Plt Count (150-450) k/uL Neutrophils # (Manual) (1.3-7.7) k/uL Lymphocytes # (Manual) (1.0-4.8) k/uL Nucleated RBCs (0-0) /100 WBC ABG pCO2 25 L (35-45) mmHg ABG pO2 >400 H (83-108) mmHg ABG HCO3 17 L (21-25) mmol/L ABG Total CO2 17 L (19-24) mmol/L ABG O2 Saturation 100.0 H (94-97) % Chloride (98-107) mmol/L Carbon Dioxide (22-30) mmol/L BUN (7-17) mg/dL Glucose (74-99) mg/dL POC Glucose (mg/dL) (75-99) mg/dL AST (14-36) U/L ALT (9-52) U/L Total Protein (6.3-8.2) g/dL Albumin (3.5-5.0) g/dL Crossmatch Microbiology - Last 24 Hours (Table) 02/27/19 11:17 Blood Culture - Preliminary Blood No Growth after 24 hours Assessment and Plan Assessment: Dysarthria and expressive aphasia. Rule out acute/subacute CVA. CT head negative Acute on chronic metabolic encephalopathy Mildly elevated troponin level. Likely due to demand mismatch along with severe anemia Anemia and thrombocytopenia likely chemo related. Hemoglobin this morning is 6 and platelets are 8. Hematology/oncology are following closely. Metastatic lung cancer currently undergoing chemotherapy Recent history of subarachnoid hemorrhage in January 2019. Currently not on any anticoagulation or antiplatelet medication Hypertension Hyperlipidemia History of PE COPD DVT prophylaxis with SCDs Recommendations and discussion: Recommend to continue current medications, management, and symptomatic treatment. Patient underwent an MRI and EEG yesterday as mentioned previously and neurology is following closely. Patient continues to have some expressive aphasia but is much more alert and talkative today. Daughter is at the bedside stating she has much improved. Patient requesting something for constipation and MiraLAX was ordered. Will continue to monitor vital signs and labs closely. Multiple medical consultations are following closely. Further recommendations based on the clinical course. Prognosis guarded at this time.
--- NOTE | 2019-03-11 00:52 | P.DS ---
Providers Date of admission: 02/25/19 14:48 Expected date of discharge: 03/01/19 Attending physician: Annabella Koehler Consults: 02/25/19 14:48 Consult Physician Urgent Consulting Provider: Joseline Olmedo Consult Reason/Comments: Altered mental status Do you want consulting provider notified?: Yes 02/26/19 10:53 Consult Physician Urgent Consulting Provider: Jarrell Lama Consult Reason/Comments: elevated troponin Do you want consulting provider notified?: Yes 02/26/19 16:49 Consult Physician Routine Consulting Provider: Kim Gottlieb Consult Reason/Comments: confusion, aphasia Do you want consulting provider notified?: Yes 02/27/19 09:44 Consult Physician Routine Consulting Provider: Santino Queen Consult Reason/Comments: vegetation on mitral/tricuspid valve, bc ordered Do you want consulting provider notified?: Already Contacted 03/01/19 04:13 Consult Physician Stat Consulting Provider: Lucian Chen Consult Reason/Comments: ICU management Do you want consulting provider notified?: Yes Primary care physician: Latisha Ziegler Hospital Course: Discharge diagnosis Status post mechanical fall and intracranial bleed. Patient to be seen by interventional neurology at [facility]. Dysarthria and expressive aphasia. Rule out acute/subacute CVA. CT head negative. Improving now. MRI of the head was done. Acute on chronic metabolic encephalopathy Mildly elevated troponin level. Likely due to demand mismatch along with severe anemia Anemia and thrombocytopenia likely chemo related. Hemoglobin this morning is 6 and platelets are 8. Hematology/oncology are following closely. Metastatic lung cancer currently undergoing chemotherapy Recent history of subarachnoid hemorrhage in January 2019. Currently not on any anticoagulation or antiplatelet medication Hypertension Hyperlipidemia History of PE COPD DVT prophylaxis with SCDs Hospital course Patient is a 53-year-old female with a known history of metastatic lung cancer currently undergoing chemotherapy(on cancer was in the diagnosed in 2016 status post lumpectomy and radiation, recurrence in 2018) subarachnoid hemorrhage recently and was transferred to [facility], history of PE currently not on anticoagulation due to SAH, history of CVA/TIA, GERD, hypertension, hyperlipidemia and history of brain aneurysm, history of IVC filter placement and recent frequent multiple admissions came to ER with complaints of confusion when she woke up in the morning.Last night the patient did not appear confused according to the daughter. Patient is able to speak clearly but does not make any sense and does not answer questions accurately. According to the daughter she had chemo on Monday. Patient is also complaining of any headache there's been no fever there's been no complaints of chest pain or difficulty breathing the patient had no vomiting or diarrhea. Patient has not complained of any abdominal pain. Patient is awake alert and oriented 2. Unable to give full history. CT head showed no acute cardiopulmonary process. Previous echocardiogram August 2018 showed normal EF. Patient was found have slightly elevated troponin level. 02/27/2019 Patient is lying in bed in no acute distress. Patient is still experiencing some expressive aphasia but is able to communicate much more today. Patient currently denies any chest pain, shortness of breath, or palpitations at this time. Patient is afebrile. Patient denies any nausea or vomiting and is tolerating diet. Patient states she does not have much of an appetite today but denies any abdominal discomfort at this time. Patient states she is going to the bathroom with no issues. Patient is being followed by multiple medical consultations and neurology has ordered an MRI of the brain along with an EEG and is currently pending at this time. Will await report. No acute overnight events. Guarded prognosis. Will continue to monitor closely. 02/28/2019 Patient is sitting up in bed in no acute distress with no acute overnight issues. Patient's speech is much better today and daughter at the bedside states that is much improved from previous. Patient is having some mild abdominal discomfort due to no bowel movement in the past day and is requesting some MiraLAX. Patient was able to express this on her own. Patient states that she is urinating well and tolerating diet. Patient denies any chest pain, shortness of breath, or palpitations at this time. Patient is afebrile. Patient underwent an MRI of the brain yesterday showing a nonenhancing white matter foci measure up to 8 mm and consistent with acute and chronic lacunar infarcts in the right frontal, left parietal, left posterior temporal lobes with evidence of subacute ischemic infarct in the cortex left posterior temporal lobe. There is also a new 8 mm lacunar infarct left posterior frontal lobe as compared to the old exam with no evidence of metastatic disease. Neurology is following. Patient also underwent an EEG showing as abnormal due to focal slowing in the bitemporal region left more so than the right side which is suggestive of a focal cortical neuronal dysfunction. Patient is to continue on current antiseizure medication of Keppra. Patient denies any headache, dizziness, lightheadedness, or visual disturbances at this time. Will continue to monitor closely. Multiple medical consultations are following. Extremely guarded prognosis. 03/01/2019 Overnight patient had a fall while she was going to the bathroom. Patient had CT done which showed linear cerebral bleed. Discussed with [facility] transfer team and patient to be seen by interventional neurology. Patient otherwise transferred to [facility] for further management. Patient also had echocardiogram which showed vegetation versus metastatic lesion. Follow up blood cultures. Patient was transferred to [facility] in stable condition. Total time taken greater than 35 minutes including 18 minutes for counseling and coordination of care. Patient Condition at Discharge: Fair Plan - Discharge Summary Discharge Rx Participant: No New Discharge Prescriptions: No Action Pantoprazole Sodium [Protonix] 40 mg PO DAILY #30 tablet. Folic Acid 1 mg PO DAILY #30 tab Ondansetron [Zofran ODT] 4 mg PO Q8HR PRN PRN Reason: Nausea Megestrol [Megace] 400 mg PO DAILY #30 cup Sennosides [Senna] 8.6 mg PO HS PRN #60 tablet PRN Reason: Constipation fentaNYL 12MCG/HR PATCH [Duragesic 12MCG/HR] 1 patch TRANSDERM Q72H #10 patch Magnesium Oxide [Mag-Ox] 400 mg PO TID #90 tab oxyCODONE-APAP 10-325MG [Percocet 10-325 mg] 1 tab PO QID PRN 3 Days #12 tab PRN Reason: Pain Atorvastatin [Lipitor] 80 mg PO HS levETIRAcetam [Keppra] 500 mg PO BID Metoprolol Tartrate [Lopressor] 25 mg PO BID Nystatin 100,000 Unit/ml Susp [Mycostatin Oral Susp] 5 ml PO QID #140 ml predniSONE See Taper PO DAILY Discharge Medication List Folic Acid 1 mg PO DAILY #30 tab 08/24/18 [Rx] Pantoprazole Sodium [Protonix] 40 mg PO DAILY #30 tablet. 08/24/18 [Rx] Ondansetron [Zofran ODT] 4 mg PO Q8HR PRN 08/30/18 [History] Megestrol [Megace] 400 mg PO DAILY #30 cup 09/01/18 [Rx] Sennosides [Senna] 8.6 mg PO HS PRN #60 tablet 09/09/18 [Rx] Magnesium Oxide [Mag-Ox] 400 mg PO TID #90 tab 10/26/18 [Rx] fentaNYL 12MCG/HR PATCH [Duragesic 12MCG/HR] 1 patch TRANSDERM Q72H #10 patch 10/26/18 [Rx] oxyCODONE-APAP 10-325MG [Percocet 10-325 mg] 1 tab PO QID PRN 3 Days #12 tab 10/26/18 [Rx] Atorvastatin [Lipitor] 80 mg PO HS 01/28/19 [History] Metoprolol Tartrate [Lopressor] 25 mg PO BID 02/03/19 [History] levETIRAcetam [Keppra] 500 mg PO BID 02/03/19 [History] Nystatin 100,000 Unit/ml Susp [Mycostatin Oral Susp] 5 ml PO QID #140 ml 02/15/19 [Rx] predniSONE See Taper PO DAILY 02/25/19 [History] Follow up Appointment(s)/Referral(s): [facility], [NON-STAFF] - 1 Week Latisha Ziegler MD [Primary Care Provider] - 1-2 days Discharge Disposition: TRANSFER TO SHORT TERM HOSP
== END 2019-03-01 07:45 | disposition short-term general hospital (02) | DRG 64 ==
LOC: EC 11:36 → 3NMEDONC 14:48 → 2SICU 03-01 03:39
PROVIDERS: ADMIT Internal Medicine; ATTEND Internal Medicine
PROC: 0BH17EZ Insertion of Endotracheal Airway into Trachea, Via Natural or Artificial Opening (ICD-10-PCS; principal; 2019-03-01)
PROC: 5A1935Z Respiratory Ventilation, Less than 24 Consecutive Hours (ICD-10-PCS; 2019-03-01)
DX: I63.89 Other cerebral infarction (principal); D61.810 Antineoplastic chemotherapy induced pancytopenia; S06.359A Traumatic hemorrhage of left cerebrum with loss of consciousness of unspecified duration, initial encounter; G93.41 Metabolic encephalopathy; I33.0 Acute and subacute infective endocarditis; C34.91 Malignant neoplasm of unspecified part of right bronchus or lung; C78.7 Secondary malignant neoplasm of liver and intrahepatic bile duct; R47.01 Aphasia; R40.2362 Coma scale, best motor response, obeys commands, at arrival to emergency department; R40.2132 Coma scale, eyes open, to sound, at arrival to emergency department; R40.2242 Coma scale, best verbal response, confused conversation, at arrival to emergency department; I25.2 Old myocardial infarction; Z87.891 Personal history of nicotine dependence; Z85.21 Personal history of malignant neoplasm of larynx; Z92.3 Personal history of irradiation; F41.0 Panic disorder [episodic paroxysmal anxiety]; H54.61 Unqualified visual loss, right eye, normal vision left eye; I08.1 Rheumatic disorders of both mitral and tricuspid valves; E78.5 Hyperlipidemia, unspecified; I10 Essential (primary) hypertension; I25.10 Atherosclerotic heart disease of native coronary artery without angina pectoris; Z86.711 Personal history of pulmonary embolism; Z86.718 Personal history of other venous thrombosis and embolism; T39.016A Underdosing of aspirin, initial encounter; Z91.128 Patient's intentional underdosing of medication regimen for other reason; J44.9 Chronic obstructive pulmonary disease, unspecified; K21.9 Gastro-esophageal reflux disease without esophagitis; T45.1X5A Adverse effect of antineoplastic and immunosuppressive drugs, initial encounter; Z79.899 Other long term (current) drug therapy; Z80.0 Family history of malignant neoplasm of digestive organs; Z80.1 Family history of malignant neoplasm of trachea, bronchus and lung; Z86.73 Personal history of transient ischemic attack (TIA), and cerebral infarction without residual deficits; Z95.828 Presence of other vascular implants and grafts; R26.81 Unsteadiness on feet; K59.00 Constipation, unspecified; Z98.51 Tubal ligation status; Z90.2 Acquired absence of lung [part of]; Z91.81 History of falling; Z88.0 Allergy status to penicillin; Z88.8 Allergy status to other drugs, medicaments and biological substances; W18.30XA Fall on same level, unspecified, initial encounter; R79.89 Other specified abnormal findings of blood chemistry; D72.829 Elevated white blood cell count, unspecified; Y92.231 Patient bathroom in hospital as the place of occurrence of the external cause
CPT/HCPCS: 36415; 36600; 51701; 70450; 70553; 71045; 71046; 72020; 80048; 80053; 80061; 80306; 81003; 82746; 82805; 83036; 83605; 83735; 84100; 84484; 85025; 85610; 85730; 86850; 86900; 86901; 86920; 87040; 87070; 87205; 93005; 93306; 94002; 95816; 96360; 99285